=== PATIENT | male | born 1945 | race Caucasian/White ===

== ENCOUNTER → 2016-11-28 | Outpatient (CLI) | payer BC ==
[~2016-11-28] MED LIST: ALBUAER19 INH; ASPI81TA28 PO; AZIT-57 PO; BENZ100C7 PO; CLB/200 PO; CLR10 PO; ESCI1TAB9 PO; FRS/40 PO; IPRA1AER2 INH; LSN/10125 PO; LVQ500 PO; LVQ750 PO; MAGN400T5 PO; MCRK20 PO; METF1000 PO; METO25TA56 PO; MONT1TAB3 PO; MULTTAB58 PO; OMEP20CA9 PO; OXCA150T3 PO; PANT1TAB3 PO; POTA99TA PO; PRED-301 PO; PRED10TA PO; PRED20TA PO; PROB1TAB16 PO; PRVHFAIN INH; RANI300T PO; ROPI0.25 PO; ROPI0.5T15 PO; ROSU20TA PO; SIMV40TA4 PO; SYMIN160 INH; TMF75 PO; UMEC1INH INH; ZNTT/150 PO
[2016-11-28 13:46] LABS: ESTIMATED AVERAGE GLUCOSE 154 mg/dl; HA1C FLAG Normal (Normal)
[2016-11-28 14:35] LABS: ALT/SGPT 51 U/L (12-78); AST/SGOT 26 U/L (15-37); BLOOD UREA NITROGEN 24 mg/dl (7-18); BUN/CREATININE RATIO 18.1 (10-20); CALCIUM 9.6 mg/dl (8.5-10.1); CARBON DIOXIDE 27 mmol/L (21-32); CHLORIDE 103 mmol/L (98-107); GLUCOSE 89 mg/dl (70-99); POTASSIUM 4.3 mmol/L (3.5-5.1); SODIUM 141 mmol/L (136-145)
[2016-11-28 14:38] LABS: ALB/GLOB RATIO 1.1 (0.9-2); ALKALINE PHOSPHATASE 68 U/L (45-117); CHOLESTEROL 138 mg/dl (0-200); CHOLESTEROL/HDL RATIO 3.4; HDL CHOLESTEROL 41 mg/dl; LDL CHOLESTEROL CALCULATED 52 mg/dl; TRIGLYCERIDES 223 mg/dl (0-150); VERY LOW DENSITY LIPOPROT CALC 45 mg/dl
== END | disposition home or self-care (01) ==
LOC: C.LAB 11:59
PROVIDERS: ATTEND Family Medicine
DX: Z11.59 Encounter for screening for other viral diseases (principal); E78.5 Hyperlipidemia, unspecified; I10 Essential (primary) hypertension; E11.9 Type 2 diabetes mellitus without complications

== ENCOUNTER 2016-12-26 12:09 | Inpatient (IN) | payer BC, OTHER ==
[~2016-12-26] VITALS: Ht 170.2 cm; Wt 109.0 kg
[~2016-12-26 12:09] MED LIST changes: -AZIT-57 PO; -BENZ100C7 PO; -CLR10 PO; -LVQ750 PO; -OMEP20CA9 PO; -PANT1TAB3 PO; +PANT1TAB48 PO; -POTA99TA PO; -PRED10TA PO; -PRED20TA PO; -PROB1TAB16 PO; -PRVHFAIN INH; -ROPI0.5T15 PO; -ROSU20TA PO; -UMEC1INH INH; -ZNTT/150 PO
[2016-12-26] MEDS ORDERED: SODIUM CHLORIDE 0.9% 500ML 500 ML IV STA (12:39)
[2016-12-26] MEDS ORDERED: SODIUM CHLORIDE 0.9% 1000ML 1,000 ML IV STA (12:39)
[2016-12-26] MEDS ORDERED: ACETAMINOPHEN 325 MG TAB PO STA (12:45)
--- NOTE | 2016-12-26 12:46 | EMERGENCY ROOM VISIT NOTE ---
History Report prepared by Tk: Kristopher Dubon Under the Supervision of: Dr. Heavenly Arenas M.D. First contact with patient: 12:39 Chief Complaint: RESPIRATORY PROBLEMS Stated Complaint: cough Nursing Triage Summary: pt arrived via BLS; cough and SOB started this AM; spouse at bedside. History of Present Illness The patient is a 71 year old male who presents to the Emergency Room via BLS with complaints of persistent cough that started this morning. He also complains of fever, chest pressure, shortness of breath, and some sore throat. The patient had his flu shot this year and denies close contact illnesses. Source of History: patient Onset: this morning Position: other (global ) Timing: other (persistent) Associated Symptoms: + SOB, + chest pain (chest pressure) Note: Other associated symptoms: sore throat Review of Systems See HPI for pertinent positives & negatives. A total of 10 systems reviewed and were otherwise negative. Past Medical & Surgical Medical Problems: (1) COPD (chronic obstructive pulmonary disease) (2) COPD (chronic obstructive pulmonary disease) (3) DM (diabetes mellitus) (4) Dyslipidemia (5) GERD (gastroesophageal reflux disease) (6) HTN (hypertension) (7) Hypoxia (8) Influenza A (9) OA (osteoarthritis) of knee (10) PNA (pneumonia) (11) Rheumatoid arthritis (12) Sinus tachycardia Surgical Problems: (1) H/O total knee replacement (2) Hx of appendectomy Family History No pertinent family history Social History Smoking Status: Former Smoker Marital Status: Housing Status: lives with family Occupation Status: retired Current/Historical Medications Scheduled Albuterol (Ventolin Hfa), 2 PUFFS INH QID Aspirin (Aspirin Ec), 81 MG PO DAILY Budesonide/Formoterol Fumarate (Symbicort 160/4.5 Inhaler ), 2 PUFFS INH BID Celecoxib (CeleBREX), 200 MG PO BID Escitalopram Oxalate (Lexapro), 10 MG PO DAILY Furosemide (Lasix), 40 MG PO DAILY Hctz/Lisinopril (Lisinopril/Hctz 10/12.5 Mg), 1 TAB PO DAILY Magnesium Oxide (Mag-Ox), 1 TAB PO DAILY Metformin Hcl (Glucophage), 1,000 MG PO BID Metoprolol Tartrate (Lopressor) (Lopressor), 75 MG PO BID Montelukast Sodium (Singulair), 10 MG PO DAILY Multiple Vitamin (Multivitamin), 1 TAB PO DAILY Oxcarbazepine (Trileptal), 150 MG PO DAILY Pantoprazole (Protonix), 40 MG PO DAILY Prednisone (Prednisone), 5 MG PO DAILY Ranitidine Hcl (Zantac), 300 MG PO HS Ropinirole (Requip), 0.25 MG PO HS Simvastatin (Zocor), 40 MG PO QPM Allergies Coded Allergies: Auranofin (Verified Allergy, Severe, SHORTNESS OF BREATH, 12/26/16) Gold-containing Drug Products (Verified Allergy, Unknown, HIVES TO GOLD SHOTS, 12/26/16) Physical Exam Vital Signs Date Time Temp Pulse Resp B/P Pulse Ox O2 Delivery O2 Flow Rate FiO2 12/26/16 15:40 Nasal Cannula 3.0 12/26/16 15:32 120 28 96 Nasal Cannula 3.0 12/26/16 15:28 147/86 12/26/16 15:27 119 32 96 Nasal Cannula 3.0 12/26/16 15:22 122 24 94 Nasal Cannula 3.0 12/26/16 15:17 123 26 95 Nasal Cannula 3.0 12/26/16 15:12 123 30 95 12/26/16 15:07 122 24 95 12/26/16 15:02 121 32 95 12/26/16 14:58 156/83 12/26/16 14:57 125 17 95 12/26/16 14:52 124 32 95 12/26/16 14:47 125 23 95 12/26/16 14:42 129 27 95 12/26/16 14:37 127 18 94 12/26/16 14:32 128 29 95 12/26/16 14:28 126/73 12/26/16 14:27 127 27 95 12/26/16 14:25 39.3 129 23 95 Room Air 12/26/16 14:22 127 29 94 12/26/16 14:17 125 24 93 12/26/16 14:12 125 29 95 12/26/16 14:07 128 29 94 12/26/16 14:02 128 154/81 94 Nasal Cannula 3.0 12/26/16 13:39 136 31 93 12/26/16 13:34 131 20 92 12/26/16 13:29 131 35 93 12/26/16 13:28 206/102 2/1/17 13:24 133 31 92 12/26/16 13:19 134 37 92 12/26/16 13:14 138 29 93 12/26/16 13:09 141 32 93 12/26/16 13:04 140 36 92 12/26/16 12:59 139 30 92 12/26/16 12:58 203/114 12/26/16 12:54 140 19 92 12/26/16 12:49 142 32 93 12/26/16 12:44 140 34 92 12/26/16 12:39 139 29 92 12/26/16 12:34 142 31 93 12/26/16 12:29 141 35 193/116 94 12/26/16 12:24 152 28 93 12/26/16 12:20 94 Room Air 12/26/16 12:20 39.3 142 32 181/120 95 Nasal Cannula 3.0 12/26/16 12:20 93 Room Air 12/26/16 12:19 142 16 181/120 92 12/26/16 12:18 146 12/26/16 12:16 197/110 Physical Exam Vital signs reviewed. General: Well-appearing, obese, appears to be acutely ill, in no significant distress HEENT: No scleral icterus, PERRLA, neck supple. Atraumatic. Cardiovascular: Tachycardic and regular rhythm, no extra sounds. Pulmonary: Dry cough noted. Diminished breath sounds with scattered wheezes. Abdomen: Soft, nontender, nondistended, positive bowel sounds. Musculoskeletal: Atraumatic, no peripheral edema. Neurologic: Patient awake alert and oriented x 3, full strength in all 4 extremities. Cranial nerves 2 through 12 grossly intact. Skin: Warm, dry, no rash Medical Decision & Procedures ER Provider Diagnostic Interpretation: X-ray results as stated below per my interpretation and radiologist interpretation. Other radiology results as stated below per my review and radiologist interpretation: CHEST ONE VIEW PORTABLE CLINICAL HISTORY: fever, SOB dyspnea COMPARISON STUDY: No previous studies for comparison. FINDINGS: Parenchymal density lateral aspect left base progressive from the prior study. Increase in density is noted. Mild list mid to superior mediastinum components which are chronic. No focal infiltrate. IMPRESSION: Increased nodular-type density left base laterally. Subtle increase in fullness the mid to superior mediastinum. CT of the chest is suggested as follow-up. Electronically signed by: Arash Monique M.D. 12/26/2016 1:30 PM Dictated Date/Time: 12/26/2016 1:29 PM CHEST CTA for PULMONARY ARTERIES CT DOSE: 599.98 mGycm HISTORY: Chest pain dyspnea abnormal chest x-ray TECHNIQUE: Multiaxial CT images of the chest were performed following the intravenous administration of contrast to evaluate the pulmonary arteries. Maximal intensity projection images were also obtained. COMPARISON STUDY: CT chest dated 08/07/2016. Chest there is a same date. FINDINGS: Thoracic aorta shows minimal atelectatic change. There is no significant mediastinal or hilar adenopathy. There is considerable mediastinal fat. Pulmonary vascularity enhances appropriately. There is mild respiratory artifact on lung bases obscuring detail of the vertebrobasilar vessels. There is no evidence for focal infiltrate. There are several calcified mediastinal and/or hilar nodes considered benign. Lung bases show minimal basilar atelectatic change. Density at the left base laterally shown increase in density appears to been represent area of focal atelectatic changes of a progressive from the prior study. It is less likely represents true parenchymal nodularity. Six-month follow-up is suggested. An additional parenchymal nodularity considered the existing is unchanged. IMPRESSION: 1. Study is negative for pulmonary embolus. Lungs are considered generally clear. 3. Pulmonary nodularity stable from the prior exam. 4. Subtle increase in density focus of atelectasis left base as compared to the prior study. This appears represent a focal area of mildly progressive atelectatic change rather than true pulmonary nodularity. As confirmation, a six-month CT chest follow-up is suggested. Electronically signed by: Arash Monique M.D. 12/26/2016 2:38 PM Dictated Date/Time: 12/26/2016 2:29 PM Laboratory Results Test 12/26/16 12:45 12/26/16 12:49 12/26/16 12:55 12/26/16 13:09 Total Creatine Kinase 305 U/L (39-308) Creatine Kinase MB 1.6 ng/ml (0.5-3.6) Creatine Kinase MB Ratio 0.5 (0-3.0) Bedside Hemoglobin 13.6 g/dl (14.0-18.0) Bedside Hematocrit 40 % (42-52) Bedside Sodium 137 mEq/L (135-144) Bedside Potassium 4.0 mEq/L (3.3-5.0) Bedside Chloride 98 mEq/L (101-112) Bedside Total CO2 23 mEq/l (24-31) Bedside Blood Urea Nitrogen 18 mg/dl (7-18) Bedside Creatinine 1.0 mg/dl (0.6-1.3) Bedside Glucose (other) 129 mg/dl (70-99) Bedside Ionized Calcium (Luz) 1.16 mmol/l (1.12-1.32) Bedside Lactic Acid Venous 2.65 mmol/L (0.90-1.70) Influenza Type A Antigen POS for Influ A (NEG) Influenza Type B Antigen Neg for Influ B (NEG) Test 12/26/16 13:22 Bedside Troponin I 0.000 ng/ml (0-0.045) Laboratory results per my review. Medications Administered Medications (Trade) Dose Ordered Sig/Yaritza Route Start Time Stop Time Status Last Admin Dose Admin Sodium Chloride 500 ml @ 999 mls/hr Q31M STAT IV 12/26/16 12:39 12/26/16 13:09 DC 12/26/16 13:16 999 MLS/HR Sodium Chloride (Nss 1000ml) 1,000 ml @ 125 mls/hr Q8H STAT IV 12/26/16 12:39 12/26/16 16:22 DC 12/26/16 13:39 125 MLS/HR Acetaminophen (Tylenol Tab) 650 mg NOW STAT PO 12/26/16 12:45 12/26/16 12:46 DC 12/26/16 13:06 650 MG Levofloxacin (Levaquin / D5W) 750 mg NOW STAT IV 12/26/16 13:34 12/26/16 13:35 DC 12/26/16 14:15 750 MG Oseltamivir Phosphate (Tamiflu Cap) 75 mg NOW STAT PO 12/26/16 13:43 12/26/16 13:44 DC 12/26/16 14:14 75 MG Magnesium Sulfate (Magnesium Sulfate) 1 gm Q1H IV 12/26/16 15:00 12/26/16 15:59 DC 12/26/16 14:51 1 GM Ondansetron HCl (Zofran Inj) 4 mg Q6H PRN IV 12/26/16 14:45 01/25/17 14:44 12/26/16 17:09 4 MG Morphine Sulfate (MoRPHine SULFATE INJ) 2 mg Q2H PRN IV 12/26/16 14:45 01/09/17 14:44 12/27/16 09:09 2 MG Metoprolol Tartrate (Lopressor Iv) 5 mg Q4 PRN IV 12/26/16 14:45 01/25/17 14:44 12/26/16 17:08 5 MG ECG Indication: other Rate (beats per minute): 140 Rhythm: sinus tachycardia Findings: nonspecific-ST abn, no ectopy ED Course 1239: Past medical records reviewed. The patient was evaluated in room A2. A complete history and physical examination was performed. 1239: Ordered NSS 1000 ml @ 125 mls/hr IV, NSS 500 ml @ 999 mls/hr IV. 1245: Ordered Tylenol Tab 650 mg PO. 1334: Ordered Levofloxacin 750 mg IV. 1341: Ordered Labetalol HCl 10 mg IV. 1343: Ordered Tamiflu Cap 75 mg Po. 1345: Ordered Ioversol 100 ml IV/Interaction checking. 1405: At this time, I reevaluated the patient and he was resting. 1430: At this time, I discussed the patient's case with Dr. Lewis - Lora COBOS and he agreed to accept the patient for further evaluation. Medical Decision Differential diagnosis: Influenza, other viral illness, pneumonia, urinary tract infection, metabolic abnormality, medication effect, cellulitis, meningitis, intra-abdominal source. This patient was evaluated and appeared to be in some discomfort. IV access was obtained and laboratory work was drawn. Patient is found to be febrile and tachycardic. He was hydrated with normal saline solution, given oral Tylenol. Chest x-ray is read as above. Follow-up chest CT was recommended. Chest CT is negative for PE. Laboratory work reveals a normal white blood cell count. The patient remained somewhat tachycardic. Influenza swab is positive. Pt is labetolol 10 mg IV for HTN and tachycardia. He was given oral tamiflu. Pt will be evaluated by the hospitalist service for worsening of symptoms or any medical concerns. Consults Time Called: 1425 Consulting Physician: Dr. Lewis - Lora COBOS Returned Call: 1430 At this time, I discussed the patient's case with Dr. Lewis and he agreed to accept the patient for further evaluation. Impression Primary Impression: Influenza A Additional Impressions: Tachycardia Hypertension Scribe Attestation The scribe's documentation has been prepared under my direction and personally reviewed by me in its entirety. I confirm that the note above accurately reflects all work, treatment, procedures, and medical decision making performed by me. Departure Information Dispostion Being Evaluated By Hospitalist Referrals Uma Hernández DO (PCP) Problem Qualifiers
[2016-12-26 12:56] LABS: BASO % 0.4 %; BASO ABS # 0.02 K/uL (0-0.2); COMPLETE YES; EOS % 1.3 %; HEMATOCRIT 38.7 % (42-52); IG% 0.2 %; LYMPH ABS # 0.55 K/uL (1.2-3.4); MEAN CELL VOLUME 99.2 fL (80-100); MEAN CORPUSCULAR HEMOGLOBIN 34.1 pg (25-34); MEAN CORPUSCULAR HGB CONC 34.4 g/dl (32-36); MEAN PLATELET VOLUME 9.7 fL (7.4-10.4); MONO % 18.1 %; PLATELET COUNT 140 K/uL (130-400); WHITE BLOOD COUNT 5.48 K/uL (4.8-10.8)
[2016-12-26 13:12] LABS: ISTAT HEMOGLOBIN 13.6 g/dl (14.0-18.0); ISTAT IONIZED CALCIUM 1.16 mmol/l (1.12-1.32)
[2016-12-26 13:13] LABS: BUN/CREATININE RATIO 13.2 (10-20); CALCIUM 9.2 mg/dl (8.5-10.1); CREATININE 1.3 mg/dl (0.60-1.40); MAGNESIUM 1.3 mg/dl (1.8-2.4)
[2016-12-26 13:18] LABS: CKMB/CK RATIO 0.5 (0-3.0)
[2016-12-26] MEDS ORDERED: PRVHFAIN INH (13:27)
--- NOTE | 2016-12-26 13:32 | DIAGNOSTIC IMAGING REPORT ---
CHEST ONE VIEW PORTABLE CLINICAL HISTORY: fever, SOB dyspnea COMPARISON STUDY: No previous studies for comparison. FINDINGS: Parenchymal density lateral aspect left base progressive from the prior study. Increase in density is noted. Mild list mid to superior mediastinum components which are chronic. No focal infiltrate. IMPRESSION: Increased nodular-type density left base laterally. Subtle increase in fullness the mid to superior mediastinum. CT of the chest is suggested as follow-up. Electronically signed by: Arash Monique M.D. 12/26/2016 1:30 PM Dictated Date/Time: 12/26/2016 1:29 PM
[2016-12-26] MEDS ORDERED: LEVAQUIN 750MG / 150ML D5W IV STA (13:34)
[2016-12-26] MEDS ORDERED: LABETALOL HCL IV 5 MG/ML 20ML IV STA (13:41)
[2016-12-26] MEDS ORDERED: OSELTAMIVIR PHOSPHATE 75 MG CAP PO STA (13:43)
[2016-12-26] MEDS ORDERED: OPTIRAY 320 IV PRN (13:45)
--- NOTE | 2016-12-26 14:39 | DIAGNOSTIC IMAGING REPORT ---
CHEST CTA for PULMONARY ARTERIES CT DOSE: 599.98 mGycm HISTORY: Chest pain dyspnea abnormal chest x-ray TECHNIQUE: Multiaxial CT images of the chest were performed following the intravenous administration of contrast to evaluate the pulmonary arteries. Maximal intensity projection images were also obtained. COMPARISON STUDY: CT chest dated 08/07/2016. Chest there is a same date. FINDINGS: Thoracic aorta shows minimal atelectatic change. There is no significant mediastinal or hilar adenopathy. There is considerable mediastinal fat. Pulmonary vascularity enhances appropriately. There is mild respiratory artifact on lung bases obscuring detail of the vertebrobasilar vessels. There is no evidence for focal infiltrate. There are several calcified mediastinal and/or hilar nodes considered benign. Lung bases show minimal basilar atelectatic change. Density at the left base laterally shown increase in density appears to been represent area of focal atelectatic changes of a progressive from the prior study. It is less likely represents true parenchymal nodularity. Six-month follow-up is suggested. An additional parenchymal nodularity considered the existing is unchanged. IMPRESSION: 1. Study is negative for pulmonary embolus. Lungs are considered generally clear. 3. Pulmonary nodularity stable from the prior exam. 4. Subtle increase in density focus of atelectasis left base as compared to the prior study. This appears represent a focal area of mildly progressive atelectatic change rather than true pulmonary nodularity. As confirmation, a six-month CT chest follow-up is suggested. Electronically signed by: Arash Monique M.D. 12/26/2016 2:38 PM Dictated Date/Time: 12/26/2016 2:29 PM
[2016-12-26] MEDS ORDERED: ZOLPIDEM TARTRATE 5 MG TAB PO PRN ×2 (14:45)
[2016-12-26] MEDS ORDERED: LORAZEPAM 2 MG/ML 1 ML VIAL IV PRN ×2 (14:45)
[2016-12-26] MEDS ORDERED: NITROGLYCERIN 0.4 MG SL PER TAB CHARGE SL PRN (14:45)
[2016-12-26] MEDS ORDERED: MoRPHine SULFATE 2 MG/ML CARP IV PRN (14:45)
[2016-12-26] MEDS ORDERED: MAGNESIUM HYDROXIDE SUSP 30 ML UDC PO PRN (14:45)
[2016-12-26] MEDS ORDERED: DiphenhydrAMINE HCL 50 MG/ML VIAL IV PRN (14:45)
[2016-12-26] MEDS ORDERED: METOPROLOL TARTRATE 1 MG/ML VIAL IV PRN (14:45)
[2016-12-26] MEDS ORDERED: BISACODYL 10 MG SUPP PR PRN (14:45)
[2016-12-26] MEDS ORDERED: MoRPHine SULFATE 4 MG/ML 1 ML CARP\\VIAL IV PRN (14:45)
[2016-12-26] MEDS ORDERED: ACETAMINOPHEN IV 100 ML IV PRN (14:45)
[2016-12-26] MEDS ORDERED: ONDANSETRON INJ 2 MG/ML 2 ML VIAL IV PRN (14:45)
[2016-12-26] MEDS ORDERED: PROMETHAZINE HCL INJ 12.5 MG in SODIUM CHLORIDE 0.9% 50ML 50 ML IV PRN (14:45)
[2016-12-26] MEDS ORDERED: ACETAMINOPHEN 325 MG TAB PO PRN ×2 (14:45)
[2016-12-26] MEDS ORDERED: ALUMINUM/MAGNESIUM/SIMETH (MAALOX MAX) 30 ML UDC PO PRN (14:45)
[2016-12-26] MEDS ORDERED: MAGNESIUM SULFATE 1GM / D5W 1 GM BAG IV SCH (15:00)
[2016-12-26 15:40] VITALS: BMI 36.3
[2016-12-26 16:00] VITALS: BP 155/75; PULSE 118; TEMP 36.8; O2SAT 93
--- NOTE | 2016-12-26 16:25 | History and Physical ---
History & Physical Date & Time of Service: Dec 26, 2016 at 16:10 Chief Complaint: cough Primary Care Physician: Uma Hernández DO History of Present Illness Source: patient, family, spouse The patient is a 71-year-old male who presents emergency room via BLS complaints of a persistent cough, fatigue, shortness of breath, sore throat and headache that began acutely this morning. 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 Past Medical/Surgical History Medical Problems: (1) COPD (chronic obstructive pulmonary disease) Status: Chronic (2) DM (diabetes mellitus) Status: Chronic (3) Dyslipidemia Status: Chronic (4) GERD (gastroesophageal reflux disease) Status: Chronic (5) HTN (hypertension) Status: Chronic (6) OA (osteoarthritis) of knee Status: Chronic (7) Rheumatoid arthritis Status: Chronic Surgical Problems: (1) H/O total knee replacement Status: Resolved (2) Hx of appendectomy Status: Resolved Family History No pertinent family history Social History Smoking Status: Former Smoker Smokeless Tobacco Use: No Alcohol Use: none Drug Use: none Marital Status: Housing status: lives with family Occupational Status: retired Immunizations History of Influenza Vaccine: Yes History of Tetanus Vaccine?: Yes History of Pneumococcal: Yes Pneumococcal Date: Nov 08, 2012 History of Hepatitis B Vaccine: Yes Multi-Drug Resistant Organisms History of MDRO: No Allergies Coded Allergies: Auranofin (Verified Allergy, Severe, SHORTNESS OF BREATH, 12/26/16) Gold-containing Drug Products (Verified Allergy, Unknown, HIVES TO GOLD SHOTS, 12/26/16) Home Medications Scheduled Albuterol (Ventolin Hfa), 2 PUFFS INH QID Aspirin (Aspirin Ec), 81 MG PO DAILY Budesonide/Formoterol Fumarate (Symbicort 160/4.5 Inhaler ), 2 PUFFS INH BID Celecoxib (CeleBREX), 200 MG PO BID Escitalopram Oxalate (Lexapro), 10 MG PO DAILY Furosemide (Lasix), 40 MG PO DAILY Hctz/Lisinopril (Lisinopril/Hctz 10/12.5 Mg), 1 TAB PO DAILY Magnesium Oxide (Mag-Ox), 1 TAB PO DAILY Metformin Hcl (Glucophage), 1,000 MG PO BID Metoprolol Tartrate (Lopressor) (Lopressor), 75 MG PO BID Montelukast Sodium (Singulair), 10 MG PO DAILY Multiple Vitamin (Multivitamin), 1 TAB PO DAILY Oxcarbazepine (Trileptal), 150 MG PO DAILY Pantoprazole (Protonix), 40 MG PO DAILY Prednisone (Prednisone), 5 MG PO DAILY Ranitidine Hcl (Zantac), 300 MG PO HS Ropinirole (Requip), 0.25 MG PO HS Simvastatin (Zocor), 40 MG PO QPM Review of Systems The patient denies chest pain, palpitations, lower extremity swelling, vision change, hearing change, weight change, fatigue, nausea, vomiting, abdominal pain , pelvic pain, blood in urine or stool, dysuria, urinary frequency or urgency, memory loss, rash, abnormal bruising or bleeding, imbalance, focal weakness, numbness or tingling in arms or legs, back or neck pain, night sweats, or allergy symptoms. The review of systems is otherwise negative other than for that already noted above, and at least 10 systems have been reviewed. Physical Exam Vital Signs Date Time Temp Pulse Resp B/P Pulse Ox O2 Delivery O2 Flow Rate FiO2 12/26/16 15:46 120 28 147/86 96 12/26/16 15:40 Nasal Cannula 3.0 12/26/16 15:32 120 28 96 Nasal Cannula 3.0 12/26/16 15:28 147/86 12/26/16 15:27 119 32 96 Nasal Cannula 3.0 12/26/16 15:22 122 24 94 Nasal Cannula 3.0 12/26/16 15:17 123 26 95 Nasal Cannula 3.0 12/26/16 15:12 123 30 95 12/26/16 15:07 122 24 95 12/26/16 15:02 121 32 95 12/26/16 14:58 156/83 12/26/16 14:57 125 17 95 12/26/16 14:52 124 32 95 12/26/16 14:47 125 23 95 12/26/16 14:42 129 27 95 12/26/16 14:37 127 18 94 12/26/16 14:32 128 29 95 12/26/16 14:28 126/73 12/26/16 14:27 127 27 95 12/26/16 14:25 39.3 129 23 95 Room Air 12/26/16 14:22 127 29 94 2/1/17 14:17 125 24 93 12/26/16 14:12 125 29 95 12/26/16 14:07 128 29 94 12/26/16 14:02 128 154/81 94 Nasal Cannula 3.0 12/26/16 13:39 136 31 93 12/26/16 13:34 131 20 92 12/26/16 13:29 131 35 93 12/26/16 13:28 206/102 12/26/16 13:24 133 31 92 12/26/16 13:19 134 37 92 12/26/16 13:14 138 29 93 12/26/16 13:09 141 32 93 12/26/16 13:04 140 36 92 12/26/16 12:59 139 30 92 12/26/16 12:58 203/114 12/26/16 12:54 140 19 92 12/26/16 12:49 142 32 93 12/26/16 12:44 140 34 92 12/26/16 12:39 139 29 92 12/26/16 12:34 142 31 93 12/26/16 12:29 141 35 193/116 94 12/26/16 12:24 152 28 93 12/26/16 12:20 94 Room Air 12/26/16 12:20 39.3 142 32 181/120 95 Nasal Cannula 3.0 12/26/16 12:20 93 Room Air 12/26/16 12:19 142 16 181/120 92 12/26/16 12:18 146 12/26/16 12:16 197/110 The patient is awake, well-developed and adequately nourished, alert and oriented 3, normocephalic and atraumatic, lying in bed and in no acute distress. HEENT--PERRL, EOMI, mucous membranes and oropharynx dry. Neck--supple, no JVD or bruits, thyroid normal, trachea midline, no adenopathy. Heart-- tachycardic extra beats, no murmurs, rubs or gallops. Lungs--decreased breath sounds throughout, no respiratory distress, no accessory muscle use. Abdomen--normal bowel sounds and soft, nontender and nondistended, no hernias or masses, no organomegaly, obese. Extremities--no cyanosis, clubbing or edema. There are good distal pulses b/l. Dermatologic--normal skin turgor, looks pale, clammy, no abnormal lymph nodes, no rash. Neurologic--cranial nerves II through XII grossly intact, motor and sensory examination normal. Psychiatric--normal affect. Diagnostics Laboratory Results Results Past 24 Hours Test 12/26/16 12:45 12/26/16 12:49 12/26/16 12:55 12/26/16 13:09 Range/Units White Blood Count 5.48 4.8-10.8 K/uL Red Blood Count 3.90 4.7-6.1 M/uL Hemoglobin 13.3 14.0-18.0 g/dL Hematocrit 38.7 42-52 % Mean Corpuscular Volume 99.2 80-100 fL Mean Corpuscular Hemoglobin 34.1 25-34 pg Mean Corpuscular Hemoglobin Concent 34.4 32-36 g/dl Platelet Count 140 130-400 K/uL Mean Platelet Volume 9.7 7.4-10.4 fL Neutrophils (%) (Auto) 70.0 % Lymphocytes (%) (Auto) 10.0 % Monocytes (%) (Auto) 18.1 % Eosinophils (%) (Auto) 1.3 % Basophils (%) (Auto) 0.4 % Neutrophils # (Auto) 3.84 1.4-6.5 K/uL Lymphocytes # (Auto) 0.55 1.2-3.4 K/uL Monocytes # (Auto) 0.99 0.11-0.59 K/uL Eosinophils # (Auto) 0.07 0-0.5 K/uL Basophils # (Auto) 0.02 0-0.2 K/uL RDW Standard Deviation 51.5 36.4-46.3 fL RDW Coefficient of Variation 14.4 11.5-14.5 % Immature Granulocyte % (Auto) 0.2 % Immature Granulocyte # (Auto) 0.01 0.00-0.02 K/uL Sodium Level 137 136-145 mmol/L Potassium Level 4.0 3.5-5.1 mmol/L Chloride Level 101 98-107 mmol/L Carbon Dioxide Level 22 21-32 mmol/L Anion Gap 14.0 21.0 16-25 mmol/L Blood Urea Nitrogen 17 7-18 mg/dl Creatinine 1.30 0.60-1.40 mg/dl Est Creatinine Clear Calc Drug Dose 60.3 ml/min Estimated GFR () 63.6 Estimated GFR (Non- 54.9 BUN/Creatinine Ratio 13.2 10-20 Random Glucose 119 70-99 mg/dl Calcium Level 9.2 8.5-10.1 mg/dl Magnesium Level 1.3 1.8-2.4 mg/dl Total Bilirubin 0.5 0.2-1 mg/dl Direct Bilirubin 0.1 0-0.2 mg/dl Aspartate Amino Transf (AST/SGOT) 43 15-37 U/L Alanine Aminotransferase (ALT/SGPT) 50 12-78 U/L Alkaline Phosphatase 54 45-117 U/L Total Creatine Kinase 305 39-308 U/L Creatine Kinase MB 1.6 0.5-3.6 ng/ml Creatine Kinase MB Ratio 0.5 0-3.0 Total Protein 8.2 6.4-8.2 gm/dl Albumin 4.1 3.4-5.0 gm/dl Bedside Hemoglobin 13.6 14.0-18.0 g/dl Bedside Hematocrit 40 42-52 % Bedside Sodium 137 135-144 mEq/L Bedside Potassium 4.0 3.3-5.0 mEq/L Bedside Chloride 98 101-112 mEq/L Bedside Total CO2 23 24-31 mEq/l Bedside Blood Urea Nitrogen 18 7-18 mg/dl Bedside Creatinine 1.0 0.6-1.3 mg/dl Bedside Glucose (other) 129 70-99 mg/dl Bedside Ionized Calcium (Luz) 1.16 1.12-1.32 mmol/l Bedside Lactic Acid Venous 2.65 0.90-1.70 mmol/L Influenza Type A Antigen POS for Influ A NEG Influenza Type B Antigen Neg for Influ B NEG Microbiology Results 12/26/16 Blood Culture, Received Pending 12/26/16 Blood Culture, Received Pending Diagnostic Radiology Patient Name: BRIGITTE BOSWELL Unit Number: [id number] Dictated: 12/26/161328 Transcribed: 12/26/161328 MS Printed Date/Time: [~ rep prt dt]/[~ rep prt tm] [~ rep ct labl] - [~ rep ct ivnm] [facility] [place] [address] Dictated: 12/26/161328 Transcribed: 12/26/16 1329 MS Printed Date/Time: [~ rep prt dt]/[~ rep prt tm] [~ rep ct labl] - [~ rep ct ivnm] [~ rep ct add3]] CHEST ONE VIEW PORTABLE CLINICAL HISTORY: fever, SOB dyspnea COMPARISON STUDY: No previous studies for comparison. FINDINGS: Parenchymal density lateral aspect left base progressive from the prior study. Increase in density is noted. Mild list mid to superior mediastinum components which are chronic. No focal infiltrate. IMPRESSION: Increased nodular-type density left base laterally. Subtle increase in fullness the mid to superior mediastinum. CT of the chest is suggested as follow-up. Electronically signed by: Arash Monique M.D. 12/26/2016 1:30 PM Dictated Date/Time: 12/26/2016 1:29 PM The status of this report is Signed. Draft = Not yet reviewed or approved by Radiologist. Signed = Reviewed and approved by Radiologist. <AttendingPhy></AttendingPhy> <FamilyPhy>Uma Hernández DO</FamilyPhy> < PrimaryPhy>Uma Hernández DO</PrimaryPhy> <UnitNumber>[id number]</UnitNumber > <VisitNumber>[id number]</VisitNumber> <PatientName>BRIGITTE BOSWELL</PatientName > <DateOfBirth>1945</DateOfBirth> <Location>[facility]</Location> <ServiceDate> 12/26/16</ServiceDate> <MNE>ESINDI</MNE> <OrderingPhy>Heavenly Arenas M.D. </OrderingPhy> <OrderingPhyMNE>f rep ord dr frye</OrderingPhyMNE> < DictatingPhyMNE>f rep dict dr frye</DictatingPhyMNE> <CCListMNE>f rep ct mne</ CCListMNE> <AdmittingPhyMNE>f pt admit dr frye</AdmittingPhyMNE> <AttendingPhyMNE >f pt attend dr frye</AttendingPhyMNE> <ConsultingPhyMNE>f pt consult dr frye</ConsultingPhyMNE> <FamilyPhyMNE>f pt fam dr mne</FamilyPhyMNE> <OtherPhyMNE>f pt other dr frye</OtherPhyMNE> < PrimaryPhyMNE>f pt prim care dr frye</PrimaryPhyMNE> <ReferringPhyMNE>f pt referring dr frye</ReferringPhyMNE> Patient Name: BRIGITTE BOSWELL Unit Number: [id number] Dictated: 12/26/161428 Transcribed: 12/26/161428 Printed Date/Time: [~ rep prt dt]/[~ rep prt tm] [~ rep ct labl] - [~ rep ct ivnm] [facility] [place] [address] Dictated: 12/26/161428 Transcribed: 12/26/161428 MS Printed Date/Time: [~ rep prt dt]/[~ rep prt tm] [~ rep ct labl] - [~ rep ct ivnm] CHEST CTA for PULMONARY ARTERIES CT DOSE: 599.98 mGycm HISTORY: Chest pain dyspnea abnormal chest x-ray TECHNIQUE: Multiaxial CT images of the chest were performed following the intravenous administration of contrast to evaluate the pulmonary arteries. Maximal intensity projection images were also obtained. COMPARISON STUDY: CT chest dated 08/07/2016. Chest there is a same date. FINDINGS: Thoracic aorta shows minimal atelectatic change. There is no significant mediastinal or hilar adenopathy. There is considerable mediastinal fat. Pulmonary vascularity enhances appropriately. There is mild respiratory artifact on lung bases obscuring detail of the vertebrobasilar vessels. There is no evidence for focal infiltrate. There are several calcified mediastinal and/or hilar nodes considered benign. Lung bases show minimal basilar atelectatic change. Density at the left base laterally shown increase in density appears to been represent area of focal atelectatic changes of a progressive from the prior study. It is less likely represents true parenchymal nodularity. Six-month follow-up is suggested. An additional parenchymal nodularity considered the existing is unchanged. IMPRESSION: 1. Study is negative for pulmonary embolus. Lungs are considered generally clear. 3. Pulmonary nodularity stable from the prior exam. 4. Subtle increase in density focus of atelectasis left base as compared to the prior study. This appears represent a focal area of mildly progressive atelectatic change rather than true pulmonary nodularity. As confirmation, a six-month CT chest follow-up is suggested. Electronically signed by: Arash Monique M.D. 12/26/2016 2:38 PM Dictated Date/Time: 12/26/2016 2:29 PM The status of this report is Signed. Draft = Not yet reviewed or approved by Radiologist. Signed = Reviewed and approved by Radiologist. <AttendingPhy></AttendingPhy> <FamilyPhy>Uma Hernández, DO</FamilyPhy> < PrimaryPhy>Uma Hernández, DO</PrimaryPhy> <UnitNumber>[id number]</UnitNumber > <VisitNumber>[id number]</VisitNumber> <PatientName>BRIGITTE BOSWELL</PatientName > <DateOfBirth>1945</DateOfBirth> <Location[place]</Location> <ServiceDate> 12/26/16</ServiceDate> <MNE>ESINDI</MNE> <OrderingPhy>Heavenly Arenas M.D. </OrderingPhy> <OrderingPhyMNE>f rep ord dr frye</OrderingPhyMNE> < DictatingPhyMNE>f rep dict dr frye</DictatingPhyMNE> <CCListMNE>f rep ct mne</ CCListMNE> <AdmittingPhyMNE>f pt admit dr frye</AdmittingPhyMNE> <AttendingPhyMNE >f pt attend dr frye</AttendingPhyMNE> <ConsultingPhyMNE>f pt consult dr frye</ConsultingPhyMNE> <FamilyPhyMNE>f pt fam dr frye</FamilyPhyMNE> <OtherPhyMNE>f pt other dr frye</OtherPhyMNE> < PrimaryPhyMNE>f pt prim care dr frye</PrimaryPhyMNE> <ReferringPhyMNE>f pt referring dr frye</ReferringPhyMNE> EKG EKG shows sinus tachycardia at 140 bpm, with no acute ST-T changes. Impression Assessment and Plan Influenza A--continue Tamiflu 75 mg by mouth twice a day started the emergency department. Sinus tachycardia--patient will be admitted to the telemetry unit for monitoring. He is already received 2 L of IV fluids emergency department, and will continue rehydration with normal saline with potassium chloride 20 mEq at 25 ML's per hour. We will continue aspirin 81 mg by mouth daily metoprolol tartrate 75 mg by mouth twice a day. Hold furosemide 40 mg by mouth daily, lisinopril/HCTZ 10/12.5 daily. We'll increase mag oxide 400 mg by mouth daily to twice a day, and we'll place on Lopressor 5 mg IV every 4 hours when necessary heart rate greater than 110. We'll also replace magnesium IV. Hypomagnesemia/dehydration--we'll give magnesium 3 g IV, placed on NSS with KCl 20 in the 125 ML's per hour, and increase mag oxide 400 milligrams twice a day. We'll follow serial BMP and magnesium levels. Next Diabetes mellitus--hold metformin 1000 mg by mouth twice a day. Place on Accu- Cheks before meals and at bedtime with NovoLog coverage. Asthma--hold Ventolin HFA, and Symbicort. We'll continue montelukast sodium 10 mg by mouth daily, and have Xopenex with Atrovent nebulizers to use every 2 hours when necessary. GERD--hold pantoprazole 40 mg by mouth daily and event is contributing to low magnesium, and increase ranitidine to 300 mg by mouth twice a day. Restless leg syndrome--continue Requip 0.25 mg by mouth at bedtime. Hypercholesterolemia--continue simvastatin 40 mg by mouth every afternoon. Arthritis--increase prednisone from 5-10 mg by mouth daily, and hold Celebrex 200 mg by mouth twice a day. Depression--continue Lexapro 10 mg by mouth daily and Trileptal 150 mg by mouth daily. Next Abnormal CT Scan of Chest--we'll need a repeat CT in 6 months for stability of lower lobe findings. Level of Care Telemetry Advanced Directives Existing Advance Directive: No Existing Living Will: No Existing Power of Thread Cutter: No Resuscitation Status FULL RESUSCITATION VTE Prophylaxis VTE Risk Assessment Done? Y/N: Yes Risk Level: Moderate Given or contraindicated: SCD's Social Service Consult None Apply
[2016-12-26] MEDS ORDERED: GLUCOSE 40% GEL 15 GM TUBE PO PRN (16:30)
[2016-12-26] MEDS ORDERED: DEXTROSE 50% 50 ML SYR IV PRN (16:30)
[2016-12-26] MEDS ORDERED: GLUCOSE 10 TABS/TUBE PO PRN (16:30)
[2016-12-26] MEDS ORDERED: GLUCAGON FOR INJ 1 MG VIAL SQ PRN (16:30)
[2016-12-26] MEDS: NSS + 20MEQ KCL 1000ML 1,000 ML IV SCH (17:07)
[2016-12-26] MEDS: MAGNESIUM SULFATE 1GM / D5W 1 GM in PREMIXED IN D5W 100 ML IV SCH ×2 (17:08→18:30)
[2016-12-26 20:10] VITALS: BP 129/79; PULSE 101; TEMP 36.9; O2SAT 96
[2016-12-26] MEDS: MAGNESIUM OXIDE 400 MG TAB PO SCH (20:55)
[2016-12-26] MEDS: RANITIDINE HCL 150 MG TAB PO SCH (20:55)
[2016-12-26] MEDS: SIMVASTATIN 40 MG TAB PO SCH (20:55)
[2016-12-26] MEDS: OSELTAMIVIR PHOSPHATE 75 MG CAP PO SCH (20:55)
[2016-12-26] MEDS: ROPINIROLE HCL 0.25 MG TAB PO SCH (20:55)
[2016-12-26] MEDS: METOPROLOL TARTRATE 25 MG TAB PO SCH (20:55)
[2016-12-26] MEDS: DOCUSATE SODIUM 100 MG CAP PO SCH (20:56)
[2016-12-26] MEDS: INSULIN ASPART 100 UNITS/ML 3 ML PEN SC SCH (21:00)
[2016-12-27] VITALS (7 sets, daily range): BP systolic 120–158; BP diastolic 70–88; PULSE 70–81; TEMP 36.4–37.1; O2SAT 90–98; Ht 170.2 cm; Wt 109.0 kg
[2016-12-27] MEDS: NSS + 20MEQ KCL 1000ML 1,000 ML IV SCH ×2 (00:21→09:09)
[2016-12-27] MEDS: INSULIN ASPART 100 UNITS/ML 3 ML PEN SC SCH ×4 (07:00→21:04)
[2016-12-27 07:53] LABS: BASO % 0.7 %; BASO ABS # 0.03 K/uL (0-0.2); COMPLETE YES; EOS % 0.5 %; HEMATOCRIT 35.4 % (42-52); IG% 0.5 %; LYMPH % 20.9 %; MEAN CELL VOLUME 100.6 fL (80-100); MEAN CORPUSCULAR HEMOGLOBIN 33.8 pg (25-34); MEAN CORPUSCULAR HGB CONC 33.6 g/dl (32-36); MEAN PLATELET VOLUME 9.8 fL (7.4-10.4); MONO % 22.3 %; NEUT % 55.1 %; PLATELET COUNT 125 K/uL (130-400); RED BLOOD COUNT 3.52 M/uL (4.7-6.1)
[2016-12-27 08:01] LABS: INR 1.2 (0.9-1.1); PARTIAL THROMBOPLASTIN RATIO 1.2; PROTHROMBIN TIME (PATIENT) 12.7 SECONDS (9.0-12.0)
--- NOTE | 2016-12-27 08:02 | Hospitalist Progress Note ---
Hospitalist Progress Note Date of Service Dec 27, 2016. Subjective Pt evaluation today including: conversation w/ patient, physical exam, chart review, lab review, review of studies, review of inpatient medication list Voiding: no voiding problems, no incontinence Patient states he is not feeling well today. +SOB, is currently on O2 supplement. Patient states he does wear O2 at home, 6L all the time- unsure of how true this is as patient is not requiring 6L here (will reassess this at later time). Patient does appear slightly confused as he talks like he has been here for multiple days. +body aches. +cough. +sore throat. Last bowel movement per patient was on 12/25. Patient denies any fever, chills, sweats, lightheadedness, dizziness, vision changes, CP, palpitations, edema, wheezing, abdominal pain, nausea, vomiting, diarrhea, urinary symptoms, melena, numbness/ tingling, weakness, anxiety/depression, active bleeding, or new skin discoloration/changes. Medications Current Inpatient Medications Medications (Trade) Dose Ordered Sig/Yaritza Route Start Time Stop Time Status Last Admin Dose Admin Ioversol 100 ml 100 ml UD PRN IV 12/26/16 13:45 12/30/16 13:44 Magnesium Sulfate 1 gm/Prmx 100 ml @ 100 mls/hr TODAY@1630,1730 IV 12/26/16 16:30 01/25/17 16:29 12/26/16 18:30 100 MLS/HR Potassium Chloride/Sodium Chloride (Nss + 20meq KCl 1000ml) 1,000 ml @ 125 mls/hr Q8H IV 12/26/16 16:30 01/25/17 16:29 12/27/16 09:09 125 MLS/HR Acetaminophen (Tylenol Tab) 650 mg Q4H PRN PO 12/26/16 14:45 01/25/17 14:44 Zolpidem Tartrate (Ambien Tab) 5 mg HSZ PRN PO 12/26/16 14:45 01/25/17 14:44 Nitroglycerin (Nitrostat Tab) 0.4 mg UD PRN SL 12/26/16 14:45 01/25/17 14:44 Aspirin (Ecotrin Tab) 81 mg DAILY PO 12/27/16 09:00 01/26/17 08:59 Escitalopram Oxalate (Lexapro Tab) 10 mg DAILY PO 12/27/16 09:00 01/26/17 08:59 12/27/16 08:43 10 MG Magnesium Oxide (Mag-Ox Tab) 400 mg BID PO 12/26/16 21:00 01/25/17 20:59 12/27/16 08:44 400 MG Metoprolol Tartrate (Lopressor Tab) 75 mg BID PO 12/26/16 21:00 01/25/17 20:59 12/27/16 08:44 75 MG Montelukast Sodium (Singulair Tab) 10 mg DAILY PO 12/27/16 09:00 01/26/17 08:59 12/27/16 08:43 10 MG Multivitamins (Multivitamin Tab) 1 tab DAILY PO 12/27/16 09:00 01/26/17 08:59 12/27/16 08:43 1 TAB Oxcarbazepine (Trileptal Tab) 150 mg DAILY PO 12/27/16 09:00 01/26/17 08:59 12/27/16 08:42 150 MG Prednisone (PredniSONE TAB) 10 mg DAILY PO 12/27/16 09:00 01/26/17 08:59 12/27/16 08:43 10 MG Ropinirole HCl (Requip Tab) 0.25 mg HS PO 12/26/16 21:00 01/25/17 20:59 12/26/16 20:55 0.25 MG Simvastatin (Zocor Tab) 40 mg QPM PO 12/26/16 21:00 01/25/17 20:59 12/26/16 20:55 40 MG Ranitidine HCl (zANTac TAB) 300 mg BID PO 12/26/16 21:00 01/25/17 20:59 12/27/16 08:44 300 MG Lorazepam (Ativan Inj) 0.5 mg Q4H PRN IV 12/26/16 14:45 01/25/17 14:44 Lorazepam (Ativan Inj) 1 mg Q4H PRN IV 12/26/16 14:45 01/25/17 14:44 Magnesium Hydroxide (Milk Of Magnesia Susp) 30 ml Q6H PRN PO 12/26/16 14:45 01/25/17 14:44 Bisacodyl (Dulcolax Supp) 10 mg DAILY PRN IN 12/26/16 14:45 01/25/17 14:44 Diphenhydramine HCl (Benadryl Inj) 25 mg Q4H PRN IV 12/26/16 14:45 01/25/17 14:44 Al Hydrox/Mg Hydrox/ Simethicone 15 ml 15 ml Q4H PRN PO 12/26/16 14:45 01/25/17 14:44 Promethazine HCl/ Sodium Chloride (Phenergan Inj/ Nss 50ml) 50.5 ml @ 202 mls/hr Q4H PRN IV 12/26/16 14:45 01/25/17 14:44 Ondansetron HCl (Zofran Inj) 4 mg Q6H PRN IV 12/26/16 14:45 01/25/17 14:44 12/26/16 17:09 4 MG Docusate Sodium (coLACE CAP) 100 mg BID PO 12/26/16 21:00 01/25/17 20:59 Morphine Sulfate (MoRPHine SULFATE INJ) 2 mg Q2H PRN IV 12/26/16 14:45 01/09/17 14:44 12/27/16 09:09 2 MG Morphine Sulfate 4 mg 4 mg Q2H PRN IV 12/26/16 14:45 01/09/17 14:44 Acetaminophen (Ofirmev Iv) 100 ml @ 400 mls/hr Q8H PRN IV 12/26/16 14:45 01/25/17 14:44 Oseltamivir Phosphate (Tamiflu Cap) 75 mg BID PO 12/26/16 21:00 12/31/16 20:59 12/27/16 08:45 75 MG Metoprolol Tartrate (Lopressor Iv) 5 mg Q4 PRN IV 12/26/16 14:45 01/25/17 14:44 12/26/16 17:08 5 MG Insulin Aspart (novoLOG ASPART) SLIDING SCALE If C... ACHS SC 12/26/16 21:00 01/25/17 20:59 12/27/16 07:00 6 UNITS Glucose (Glucose 40% Gel) UD PRN PO 12/26/16 16:30 01/25/17 16:29 Glucose (Glucose Chew Tab) 1 tabs UD PRN PO 12/26/16 16:30 01/25/17 16:29 Dextrose (Dextrose 50% 50ML Syringe) 50 ml UD PRN IV 12/26/16 16:30 01/25/17 16:29 Glucagon (Glucagon Inj) 1 mg UD PRN SQ 12/26/16 16:30 01/25/17 16:29 Objective Vital Signs Date Time Temp Pulse Resp B/P Pulse Ox O2 Delivery O2 Flow Rate FiO2 12/27/16 04:22 Nasal Cannula 3.0 12/27/16 03:24 37.1 81 24 135/79 90 Nasal Cannula 2.0 12/27/16 00:42 36.8 81 24 138/77 96 2.0 12/27/16 00:31 Nasal Cannula 3.0 12/26/16 20:18 Nasal Cannula 2.0 12/26/16 20:10 36.9 101 22 129/79 96 Nasal Cannula 2.0 12/26/16 17:08 118 156/82 12/26/16 16:00 36.8 118 28 155/75 93 Nasal Cannula 2.0 12/26/16 15:46 120 28 147/86 96 12/26/16 15:40 Nasal Cannula 3.0 12/26/16 15:32 120 28 96 Nasal Cannula 3.0 12/26/16 15:28 147/86 12/26/16 15:27 119 32 96 Nasal Cannula 3.0 12/26/16 15:22 122 24 94 Nasal Cannula 3.0 12/26/16 15:17 123 26 95 Nasal Cannula 3.0 12/26/16 15:12 123 30 95 12/26/16 15:07 122 24 95 12/26/16 15:02 121 32 95 12/26/16 14:58 156/83 12/26/16 14:57 125 17 95 12/26/16 14:52 124 32 95 12/26/16 14:47 125 23 95 12/26/16 14:42 129 27 95 12/26/16 14:37 127 18 94 12/26/16 14:32 128 29 95 12/26/16 14:28 126/73 12/26/16 14:27 127 27 95 12/26/16 14:25 39.3 129 23 95 Room Air 12/26/16 14:22 127 29 94 12/26/16 14:17 125 24 93 12/26/16 14:12 125 29 95 12/26/16 14:07 128 29 94 12/26/16 14:02 128 154/81 94 Nasal Cannula 3.0 12/26/16 13:39 136 31 93 12/26/16 13:34 131 20 92 12/26/16 13:29 131 35 93 12/26/16 13:28 206/102 12/26/16 13:24 133 31 92 12/26/16 13:19 134 37 92 12/26/16 13:14 138 29 93 12/26/16 13:09 141 32 93 12/26/16 13:04 140 36 92 12/26/16 12:59 139 30 92 12/26/16 12:58 203/114 12/26/16 12:54 140 19 92 12/26/16 12:49 142 32 93 12/26/16 12:44 140 34 92 12/26/16 12:39 139 29 92 12/26/16 12:34 142 31 93 12/26/16 12:29 141 35 193/116 94 12/26/16 12:24 152 28 93 12/26/16 12:20 94 Room Air 12/26/16 12:20 39.3 142 32 181/120 95 Nasal Cannula 3.0 12/26/16 12:20 93 Room Air 12/26/16 12:19 142 16 181/120 92 12/26/16 12:18 146 12/26/16 12:16 197/110 Physical Exam General Appearance: no apparent distress, + obese Eyes: normal inspection, PERRL ENT: hearing grossly normal Neck: supple Respiratory/Chest: no respiratory distress, no accessory muscle use, + decreased breath sounds, + wheezing (diffuse expiratory wheeze) Cardiovascular: regular rate, rhythm Abdomen: normal bowel sounds, soft, + distended Extremities: no pedal edema, no calf tenderness Neurologic/Psychiatric: alert, normal mood/affect, + pertinent finding ( Oriented to person/place ) Skin: normal color, warm/dry, no rash Laboratory Results Last 24 Hours Test 12/26/16 12:45 12/26/16 12:49 12/26/16 12:55 12/26/16 13:09 White Blood Count 5.48 K/uL Red Blood Count 3.90 M/uL Hemoglobin 13.3 g/dL Hematocrit 38.7 % Mean Corpuscular Volume 99.2 fL Mean Corpuscular Hemoglobin 34.1 pg Mean Corpuscular Hemoglobin Concent 34.4 g/dl Platelet Count 140 K/uL Mean Platelet Volume 9.7 fL Neutrophils (%) (Auto) 70.0 % Lymphocytes (%) (Auto) 10.0 % Monocytes (%) (Auto) 18.1 % Eosinophils (%) (Auto) 1.3 % Basophils (%) (Auto) 0.4 % Neutrophils # (Auto) 3.84 K/uL Lymphocytes # (Auto) 0.55 K/uL Monocytes # (Auto) 0.99 K/uL Eosinophils # (Auto) 0.07 K/uL Basophils # (Auto) 0.02 K/uL RDW Standard Deviation 51.5 fL RDW Coefficient of Variation 14.4 % Immature Granulocyte % (Auto) 0.2 % Immature Granulocyte # (Auto) 0.01 K/uL Sodium Level 137 mmol/L Potassium Level 4.0 mmol/L Chloride Level 101 mmol/L Carbon Dioxide Level 22 mmol/L Anion Gap 14.0 mmol/L 21.0 mmol/L Blood Urea Nitrogen 17 mg/dl Creatinine 1.30 mg/dl Est Creatinine Clear Calc Drug Dose 60.3 ml/min Estimated GFR () 63.6 Estimated GFR (Non- 54.9 BUN/Creatinine Ratio 13.2 Random Glucose 119 mg/dl Calcium Level 9.2 mg/dl Magnesium Level 1.3 mg/dl Total Bilirubin 0.5 mg/dl Direct Bilirubin 0.1 mg/dl Aspartate Amino Transf (AST/SGOT) 43 U/L Alanine Aminotransferase (ALT/SGPT) 50 U/L Alkaline Phosphatase 54 U/L Total Creatine Kinase 305 U/L Creatine Kinase MB 1.6 ng/ml Creatine Kinase MB Ratio 0.5 Total Protein 8.2 gm/dl Albumin 4.1 gm/dl Bedside Hemoglobin 13.6 g/dl Bedside Hematocrit 40 % Bedside Sodium 137 mEq/L Bedside Potassium 4.0 mEq/L Bedside Chloride 98 mEq/L Bedside Total CO2 23 mEq/l Bedside Blood Urea Nitrogen 18 mg/dl Bedside Creatinine 1.0 mg/dl Bedside Glucose (other) 129 mg/dl Bedside Ionized Calcium (Luz) 1.16 mmol/l Bedside Lactic Acid Venous 2.65 mmol/L Influenza Type A Antigen POS for Influ A Influenza Type B Antigen Neg for Influ B Test 12/26/16 17:21 2/1/17 18:20 12/26/16 21:09 12/27/16 04:44 Bedside Glucose 130 mg/dl 120 mg/dl Lactic Acid Level 1.7 mmol/L Test 12/27/16 07:17 Bedside Glucose 108 mg/dl Assessment and Plan 71-year-old male who presents emergency room via BLS complaints of a persistent cough, fatigue, shortness of breath, sore throat and headache that began acutely on 12/26. His family reports that he was outside [employer] snow for an extended interval time on 12/25. Sinus tachycardia, resolved: - Admit to the telemetry for cardiac monitoring, groundwater monitoring technician reviewed- sinus rhythm throughout the night, around 2100 on 12/26 patient's tachycardia started to improve. - Hydration with IV NSS + potassium chloride 20 mEq @ 25 ml/hr - Continue ASA 81 mg PO daily Bilateral lower extremity edema: - Hold Furosemide 40 mg PO daily -HTN: - Hold Lisinopril/HCTZ 10/12.5 daily - Continue Metoprolol Tartrate 75 mg PO BI - Lopressor 5 mg IV q4 hrs PRN Influenza A +: - Tamiflu 75 mg PO BID x10 doses (started on 12/26) Pancytopenia, ?secondary to influenza: - Monitor, follow CBC Elevated liver enzymes/INR, ?secondary to influenza: - Follow liver profile/INR Hypomagnesemia/dehydration: - Mag level 1.3 on admission. Magnesium 3 g IV and increase Mag Oxide 400 milligrams BID - Hydrate with IV NSS with KCl 20 in the 125 ML's per hour - Follow serial BMP and magnesium levels Diabetes mellitus: - Hold Metformin 1000 mg PO BID - BSG ACHS with sliding insulin scale Asthma: - Hold Ventolin HFA and Symbicort - Continue Montelukast sodium 10 mg PO daily - DuoNebs scheduled and PRN GERD: - Hold Pantoprazole 40 mg PO daily due to low magnesium - Increase Ranitidine to 300 mg PO BID Restless leg syndrome: - Continue Requip 0.25 mg PO HS Hypercholesterolemia: - Continue Simvastatin 40 mg PO daily Arthritis: - Increase Prednisone from 5 to 10 mg PO daily - Hold Celebrex 200 mg PO BID Depression: - Continue Lexapro 10 mg PO daily and Trileptal 150 [address] PO daily [address] CT Scan of Chest: - CXR- Increased nodular-type density left base laterally. Subtle increase in fullness the mid to superior mediastinum. - Chest CT- Study is negative for pulmonary embolus. Lungs are considered generally clear. Pulmonary nodularity stable from the prior exam. Subtle increase in density focus of atelectasis left base as compared to the prior study. This appears represent a focal area of mildly progressive atelectatic change rather than true pulmonary nodularity. - Will need a repeat CT in 6 months for stability of lower lobe findings. GI Prophylaxis: - Maalox PRN - IV Zofran PRN - Colace and/or Milk of Mag PRN DVT prophylaxis: - Hold chemical therapy due to pancytopenia - TONY and SCDs Code Status: - LEVEL I, FULL Dispo: - Discharge to home once medically stable.
[2016-12-27 08:22] LABS: BUN/CREATININE RATIO 11.9 (10-20); CALCIUM 7.9 mg/dl (8.5-10.1); CREATININE 1.1 mg/dl (0.60-1.40); MAGNESIUM 1.9 mg/dl (1.8-2.4); POTASSIUM 4.3 mmol/L (3.5-5.1)
[2016-12-27] MEDS: OXCARBAZEPINE 150 MG TAB PO SCH (08:42)
[2016-12-27] MEDS: MULTIVITAMIN TAB PO SCH (08:43)
[2016-12-27] MEDS: ESCITALOPRAM OXALATE 10 MG TAB PO SCH (08:43)
[2016-12-27] MEDS: MONTELUKAST SOD 10 MG TAB PO SCH (08:43)
[2016-12-27] MEDS: RANITIDINE HCL 150 MG TAB PO SCH ×2 (08:44→21:01)
[2016-12-27] MEDS: MAGNESIUM OXIDE 400 MG TAB PO SCH ×2 (08:44→21:01)
[2016-12-27] MEDS: METOPROLOL TARTRATE 25 MG TAB PO SCH ×2 (08:44→21:01)
[2016-12-27] MEDS: OSELTAMIVIR PHOSPHATE 75 MG CAP PO SCH ×2 (08:45→21:01)
[2016-12-27] MEDS: ASPIRIN 81 MG ECTAB PO SCH (09:00)
[2016-12-27] MEDS: DOCUSATE SODIUM 100 MG CAP PO SCH ×2 (09:00→21:01)
--- NOTE | 2016-12-27 10:01 | Clinical Documentation Query ---
LUISA Nj : CLINICAL DOCUMENTATION QUERY Patient is a 71 year old male admitted with influenza A. EMR review demonstrates that patient was admitted hypertensive, tachycardic (146), febrile (39.3), tachypneic (to mid 30's) with lactic acidemia (2.65) noted on serum chemistries. He is being treated with IVF and Tamiflu and being monitored with telemetry, serial labs, symptom management. In your clinical opinion is this patient being managed for: ( x) possible Sepsis due to influenza A, POA ( ) Other explanation of clinical findings (Please Explain) ( ) Unable to determine (Please Define) ( ) Need to Discuss ( ) Not Agree The medical record reflects the following clinical findings, treatment, and risk factors. Clinical Indicators: Fever, tachycardia, lactic acidemia in the setting of infectious disease Treatment:He is being treated with IVF and Tamiflu and being monitored with telemetry, serial labs, symptom management Risk Factors: Influenza A infection. Please clarify and document your clinical opinion in the progress notes and discharge summary. Terms such as "probable", "suspected", "likely", "questionable", "possible", or "still to be ruled out" are acceptable. IF IN AGREEMENT, YOU MUST DOCUMENT ABOVE DIAGNOSTIC STATEMENT IN DAILY PROGRESS NOTES AND DISCHARGE SUMMARY. This document is not part of the patient's record. Thank You, Cristopher Gloria RN [phone]
--- NOTE | 2016-12-27 10:02 | Clinical Documentation Query ---
LUKAS MELENDEZ : CLINICAL DOCUMENTATION QUERY Patient is a 71 year old male admitted with influenza A. EMR review demonstrates that patient was admitted hypertensive, tachycardic (146), febrile (39.3), tachypneic (to mid 30's) with lactic acidemia (2.65) noted on serum chemistries. He is being treated with IVF and Tamiflu and being monitored with telemetry, serial labs, symptom management. In your clinical opinion is this patient being managed for: ( X ) Sepsis due to influenza A, POA ( ) Other explanation of clinical findings (Please Explain) ( ) Unable to determine (Please Define) ( ) Need to Discuss ( ) Not Agree The medical record reflects the following clinical findings, treatment, and risk factors. Clinical Indicators: Fever, tachycardia, lactic acidemia in the setting of infectious disease Treatment:He is being treated with IVF and Tamiflu and being monitored with telemetry, serial labs, symptom management Risk Factors: Influenza A infection. Please clarify and document your clinical opinion in the progress notes and discharge summary. Terms such as "probable", "suspected", "likely", "questionable", "possible", or "still to be ruled out" are acceptable. IF IN AGREEMENT, YOU MUST DOCUMENT ABOVE DIAGNOSTIC STATEMENT IN DAILY PROGRESS NOTES AND DISCHARGE SUMMARY. This document is not part of the patient's record. Thank You, Cristopher Gloria RN [phone]
[2016-12-27] MEDS ORDERED: ALBUT/IPRATROP 3MG/0.5MG NEB 3 ML VIAL INH SCH (12:00)
[2016-12-27] MEDS ORDERED: ALBUT/IPRATROP 3MG/0.5MG NEB 3 ML VIAL INH PRN (12:45)
[2016-12-27] MEDS ORDERED: AZITHROMYCIN 250 MG TAB PO ONE (13:30)
[2016-12-27] MEDS: GUAIFENESIN/CODEINE 200MG/20MG 10ML UDC PO PRN (13:35)
[2016-12-27] MEDS: ALBUT/IPRATROP 3MG/0.5MG NEB 3 ML VIAL INH SCH ×2 (16:00→19:33)
[2016-12-27] MEDS: METHYLPREDNISOLONE IV 80 MG in SYRINGE 0 ML IV SCH ×2 (16:08→21:02)
[2016-12-27] MEDS: MAGNESIUM SULFATE 1GM / D5W 1 GM in PREMIXED IN D5W 100 ML IV SCH ×2 (16:10→17:30)
[2016-12-27] MEDS: ROPINIROLE HCL 0.25 MG TAB PO SCH (21:01)
[2016-12-27] MEDS: SIMVASTATIN 40 MG TAB PO SCH (21:02)
[2016-12-28] VITALS (13 sets, daily range): BP systolic 125–151; BP diastolic 74–82; PULSE 57–95; TEMP 36.3–36.9; O2SAT 92–97
[2016-12-28] MEDS: METHYLPREDNISOLONE IV 80 MG in SYRINGE 0 ML IV SCH ×2 (05:34→17:56)
[2016-12-28 06:25] LABS: COMPLETE YES; HEMATOCRIT 37.8 % (42-52); LYMPH % 14.8 %; LYMPH ABS # 0.71 K/uL (1.2-3.4); MEAN CORPUSCULAR HEMOGLOBIN 33.1 pg (25-34); MEAN CORPUSCULAR HGB CONC 33.1 g/dl (32-36); MEAN PLATELET VOLUME 10.2 fL (7.4-10.4); MONO % 4.2 %; PLATELET COUNT 159 K/uL (130-400); RED BLOOD COUNT 3.78 M/uL (4.7-6.1)
[2016-12-28 06:30] LABS: INR 1.1 (0.9-1.1); PARTIAL THROMBOPLASTIN RATIO 1.1; PROTHROMBIN TIME (PATIENT) 11.8 SECONDS (9.0-12.0)
[2016-12-28 06:59] LABS: ALT/SGPT 42 U/L (12-78); AST/SGOT 34 U/L (15-37); BUN/CREATININE RATIO 18.7 (10-20); CALCIUM 8.2 mg/dl (8.5-10.1); CARBON DIOXIDE 24 mmol/L (21-32); CHLORIDE 104 mmol/L (98-107); GLUCOSE 165 mg/dl (70-99); MAGNESIUM 2.3 mg/dl (1.8-2.4); POTASSIUM 4.8 mmol/L (3.5-5.1); SODIUM 139 mmol/L (136-145)
[2016-12-28] MEDS: INSULIN ASPART 100 UNITS/ML 3 ML PEN SC SCH ×4 (07:00→21:34)
[2016-12-28 07:11] LABS: ALKALINE PHOSPHATASE 43 U/L (45-117); THYROID STIMULATING HORMONE 0.319 uIu/ml (0.300-4.500)
[2016-12-28] MEDS: ALBUT/IPRATROP 3MG/0.5MG NEB 3 ML VIAL INH SCH ×4 (07:28→19:39)
--- NOTE | 2016-12-28 07:39 | Hospitalist Progress Note ---
Hospitalist Progress Note Date of Service Dec 28, 2016. Subjective Pt evaluation today including: conversation w/ patient, physical exam, chart review, lab review, review of inpatient medication list Voiding: no voiding problems, no incontinence Patient states he is feeling better, but stills feels lousy. +cough, sore throat , body aches. Had a BM. Patient is eating and drinking OK. Patient denies any fever, chills, sweats, lightheadedness, dizziness, vision changes, CP, palpitations, edema, SOB, wheezing, abdominal pain, nausea, vomiting, diarrhea, urinary symptoms, melena, numbness/tingling, weakness, anxiety/depression, active bleeding, or new skin discoloration/changes. Medications Current Inpatient Medications Medications (Trade) Dose Ordered Sig/Yaritza Route Start Time Stop Time Status Last Admin Dose Admin Ioversol 100 ml 100 ml UD PRN IV 12/26/16 13:45 12/30/16 13:44 Magnesium Sulfate/ Prmx (Magnesium Sulfate/Premixed D5W) 100 ml @ 100 mls/hr TODAY@1630,1730 IV 12/26/16 16:30 01/25/17 16:29 12/27/16 17:30 100 MLS/HR Acetaminophen (Tylenol Tab) 650 mg Q4H PRN PO 12/26/16 14:45 01/25/17 14:44 Zolpidem Tartrate (Ambien Tab) 5 mg HSZ PRN PO 12/26/16 14:45 01/25/17 14:44 Nitroglycerin (Nitrostat Tab) 0.4 mg UD PRN SL 12/26/16 14:45 01/25/17 14:44 Aspirin (Ecotrin Tab) 81 mg DAILY PO 12/27/16 09:00 01/26/17 08:59 12/28/16 07:48 81 MG Escitalopram Oxalate (Lexapro Tab) 10 mg DAILY PO 12/27/16 09:00 01/26/17 08:59 12/28/16 07:47 10 MG Magnesium Oxide (Mag-Ox Tab) 400 mg BID PO 12/26/16 21:00 01/25/17 20:59 12/28/16 07:47 400 MG Metoprolol Tartrate (Lopressor Tab) 75 mg BID PO 12/26/16 21:00 01/25/17 20:59 12/28/16 07:46 75 MG Montelukast Sodium (Singulair Tab) 10 mg DAILY PO 12/27/16 09:00 01/26/17 08:59 12/28/16 07:46 10 MG Multivitamins (Multivitamin Tab) 1 tab DAILY PO 12/27/16 09:00 01/26/17 08:59 12/28/16 07:47 1 TAB Oxcarbazepine (Trileptal Tab) 150 mg DAILY PO 12/27/16 09:00 01/26/17 08:59 12/28/16 07:47 150 MG Ropinirole HCl (Requip Tab) 0.25 mg HS PO 12/26/16 21:00 01/25/17 20:59 12/27/16 21:01 0.25 MG Simvastatin (Zocor Tab) 40 mg QPM PO 12/26/16 21:00 01/25/17 20:59 12/27/16 21:02 40 MG Ranitidine HCl (zANTac TAB) 300 mg BID PO 12/26/16 21:00 01/25/17 20:59 12/28/16 07:47 300 MG Lorazepam (Ativan Inj) 0.5 mg Q4H PRN IV 12/26/16 14:45 01/25/17 14:44 Lorazepam (Ativan Inj) 1 mg Q4H PRN IV 12/26/16 14:45 01/25/17 14:44 Magnesium Hydroxide (Milk Of Magnesia Susp) 30 ml Q6H PRN PO 12/26/16 14:45 01/25/17 14:44 Bisacodyl (Dulcolax Supp) 10 mg DAILY PRN MO 12/26/16 14:45 01/25/17 14:44 Diphenhydramine HCl (Benadryl Inj) 25 mg Q4H PRN IV 12/26/16 14:45 01/25/17 14:44 Al Hydrox/Mg Hydrox/ Simethicone 15 ml 15 ml Q4H PRN PO 12/26/16 14:45 01/25/17 14:44 Promethazine HCl/ Sodium Chloride (Phenergan Inj/ Nss 50ml) 50.5 ml @ 202 mls/hr Q4H PRN IV 12/26/16 14:45 01/25/17 14:44 Ondansetron HCl (Zofran Inj) 4 mg Q6H PRN IV 12/26/16 14:45 01/25/17 14:44 12/26/16 17:09 4 MG Docusate Sodium (coLACE CAP) 100 mg BID PO 12/26/16 21:00 01/25/17 20:59 12/28/16 07:48 100 MG Morphine Sulfate (MoRPHine SULFATE INJ) 2 mg Q2H PRN IV 12/26/16 14:45 01/09/17 14:44 12/27/16 09:09 2 MG Morphine Sulfate 4 mg 4 mg Q2H PRN IV 12/26/16 14:45 01/09/17 14:44 Acetaminophen (Ofirmev Iv) 100 ml @ 400 mls/hr Q8H PRN IV 12/26/16 14:45 01/25/17 14:44 Oseltamivir Phosphate (Tamiflu Cap) 75 mg BID PO 12/26/16 21:00 12/31/16 20:59 12/28/16 07:47 75 MG Metoprolol Tartrate (Lopressor Iv) 5 mg Q4 PRN IV 12/26/16 14:45 01/25/17 14:44 12/26/16 17:08 5 MG Insulin Aspart (novoLOG ASPART) SLIDING SCALE If C... ACHS SC 12/26/16 21:00 01/25/17 20:59 12/28/16 07:00 7 UNITS Glucose (Glucose 40% Gel) UD PRN PO 12/26/16 16:30 01/25/17 16:29 Glucose (Glucose Chew Tab) 1 tabs UD PRN PO 12/26/16 16:30 01/25/17 16:29 Dextrose (Dextrose 50% 50ML Syringe) 50 ml UD PRN IV 12/26/16 16:30 01/25/17 16:29 Glucagon (Glucagon Inj) 1 mg UD PRN SQ 12/26/16 16:30 01/25/17 16:29 Albuterol/ Ipratropium (Duoneb) 3 ml QIDR INH 12/27/16 16:00 01/26/17 15:59 12/28/16 07:28 3 ML Codeine Phosphate/ Guaifenesin (Robitussin-AC Sugar Free Syrup) 10 ml Q6H PRN PO 12/27/16 12:45 01/26/17 12:44 12/28/16 07:46 10 ML Albuterol/ Ipratropium (Duoneb) 3 ml Q2H PRN INH 12/27/16 12:45 01/26/17 12:44 Azithromycin 250 mg 250 mg DAILY@1200 PO 12/28/16 12:00 01/04/17 11:59 Methylprednisolone Sodium Succinate/ Syringe (Solu-Medrol IV/ Syringe) 1.28 ml @ 1.5 mls/min Q8 IV 12/27/16 14:00 01/26/17 13:59 12/28/16 05:34 1.5 MLS/MIN Objective Vital Signs Date Time Temp Pulse Resp B/P Pulse Ox O2 Delivery O2 Flow Rate FiO2 12/28/16 04:45 36.9 64 134/75 96 Nasal Cannula 2.0 12/28/16 04:25 Nasal Cannula 3.0 12/28/16 00:26 36.3 67 20 125/82 96 Nasal Cannula 2.0 12/28/16 00:24 Nasal Cannula 3.0 12/27/16 20:50 Nasal Cannula 3.0 12/27/16 20:04 36.4 79 20 133/81 96 Nasal Cannula 2.0 12/27/16 19:33 72 18 96 Nasal Cannula 2.0 12/27/16 16:00 Nasal Cannula 3.0 12/27/16 15:49 36.7 70 20 120/70 98 Nasal Cannula 2.0 12/27/16 12:00 Nasal Cannula 3.0 12/27/16 11:34 36.6 77 20 152/88 98 2.0 12/27/16 08:09 36.8 79 18 158/85 95 2.0 12/27/16 08:00 Nasal Cannula 3.0 Physical Exam General Appearance: no apparent distress, + obese, + pertinent finding (o2 supplement on ) Eyes: normal inspection, PERRL ENT: hearing grossly normal Neck: supple Respiratory/Chest: lungs clear, no respiratory distress, no accessory muscle use Cardiovascular: regular rate, rhythm, no murmur Abdomen: normal bowel sounds, non tender, soft Extremities: no pedal edema, no calf tenderness Neurologic/Psychiatric: alert, normal mood/affect, oriented x 3 Skin: normal color, warm/dry, no rash Laboratory Results Last 24 Hours Test 12/27/16 07:40 12/27/16 11:16 12/27/16 16:24 12/27/16 20:27 White Blood Count 4.30 K/uL Red Blood Count 3.52 M/uL Hemoglobin 11.9 g/dL Hematocrit 35.4 % Mean Corpuscular Volume 100.6 fL Mean Corpuscular Hemoglobin 33.8 pg Mean Corpuscular Hemoglobin Concent 33.6 g/dl Platelet Count 125 K/uL Mean Platelet Volume 9.8 fL Neutrophils (%) (Auto) 55.1 % Lymphocytes (%) (Auto) 20.9 % Monocytes (%) (Auto) 22.3 % Eosinophils (%) (Auto) 0.5 % Basophils (%) (Auto) 0.7 % Neutrophils # (Auto) 2.37 K/uL Lymphocytes # (Auto) 0.90 K/uL Monocytes # (Auto) 0.96 K/uL Eosinophils # (Auto) 0.02 K/uL Basophils # (Auto) 0.03 K/uL RDW Standard Deviation 52.6 fL RDW Coefficient of Variation 14.5 % Immature Granulocyte % (Auto) 0.5 % Immature Granulocyte # (Auto) 0.02 K/uL Prothrombin Time 12.7 SECONDS Prothromb Time International Ratio 1.2 Activated Partial Thromboplast Time 31.8 SECONDS Partial Thromboplastin Ratio 1.2 Sodium Level 135 mmol/L Potassium Level 4.3 mmol/L Chloride Level 101 mmol/L Carbon Dioxide Level 25 mmol/L Anion Gap 9.0 mmol/L Blood Urea Nitrogen 13 mg/dl Creatinine 1.10 mg/dl Est Creatinine Clear Calc Drug Dose 72.2 ml/min Estimated GFR () 77.9 Estimated GFR (Non- 67.2 BUN/Creatinine Ratio 11.9 Random Glucose 98 mg/dl Calcium Level 7.9 mg/dl Magnesium Level 1.9 mg/dl Total Bilirubin 0.5 mg/dl Direct Bilirubin 0.1 mg/dl Aspartate Amino Transf (AST/SGOT) 42 U/L Alanine Aminotransferase (ALT/SGPT) 44 U/L Alkaline Phosphatase 41 U/L Total Protein 6.9 gm/dl Albumin 3.3 gm/dl Bedside Glucose 118 mg/dl 130 mg/dl 230 mg/dl Test 12/28/16 05:50 White Blood Count 4.80 K/uL Red Blood Count 3.78 M/uL Hemoglobin 12.5 g/dL Hematocrit 37.8 % Mean Corpuscular Volume 100.0 fL Mean Corpuscular Hemoglobin 33.1 pg Mean Corpuscular Hemoglobin Concent 33.1 g/dl Platelet Count 159 K/uL Mean Platelet Volume 10.2 fL Neutrophils (%) (Auto) 81.0 % Lymphocytes (%) (Auto) 14.8 % Monocytes (%) (Auto) 4.2 % Eosinophils (%) (Auto) 0.0 % Basophils (%) (Auto) 0.0 % Neutrophils # (Auto) 3.89 K/uL Lymphocytes # (Auto) 0.71 K/uL Monocytes # (Auto) 0.20 K/uL Eosinophils # (Auto) 0.00 K/uL Basophils # (Auto) 0.00 K/uL RDW Standard Deviation 51.4 fL RDW Coefficient of Variation 14.1 % Immature Granulocyte % (Auto) 0.0 % Immature Granulocyte # (Auto) 0.00 K/uL Prothrombin Time 11.8 SECONDS Prothromb Time International Ratio 1.1 Activated Partial Thromboplast Time 28.6 SECONDS Partial Thromboplastin Ratio 1.1 Sodium Level 139 mmol/L Potassium Level 4.8 mmol/L Chloride Level 104 mmol/L Carbon Dioxide Level 24 mmol/L Anion Gap 11.0 mmol/L Creatinine 1.10 mg/dl Est Creatinine Clear Calc Drug Dose 72.2 ml/min Estimated GFR () 77.9 Estimated GFR (Non- 67.2 BUN/Creatinine Ratio 18.7 Random Glucose 165 mg/dl Calcium Level 8.2 mg/dl Magnesium Level 2.3 mg/dl Total Bilirubin 0.3 mg/dl Direct Bilirubin < 0.1 mg/dl Aspartate Amino Transf (AST/SGOT) 34 U/L Alanine Aminotransferase (ALT/SGPT) 42 U/L Alkaline Phosphatase 43 U/L Total Protein 7.2 gm/dl Albumin 3.4 gm/dl Thyroid Stimulating Hormone (TSH) 0.319 uIu/ml Assessment and Plan 71-year-old male who presents emergency room via BLS complaints of a persistent cough, fatigue, shortness of breath, sore throat and headache that began acutely on 12/26. His family reports that he was outside [place] snow for an extended interval time on 1/31. Sinus tachycardia, resolved: - Admit to the telemetry for cardiac monitoring, teletypesetter monitor reviewed- sinus rhythm, around 2100 on 12/26 patient's tachycardia started to improve. - Hydration with IV NSS + potassium chloride 20 mEq @ 25 ml/hr x3 bags - Continue ASA 81 mg PO daily - TSH checked, 0.319 - Pending b12/folate - Pending blood cultures Bilateral lower extremity edema: - Hold Furosemide 40 mg PO daily -HTN: - Hold Lisinopril/HCTZ 10/12.5 daily- resume at discharge - Continue Metoprolol Tartrate 75 mg PO BI - Lopressor 5 mg IV q4 hrs PRN Influenza A +: - Tamiflu 75 mg PO BID x10 doses (started on 12/26) Pancytopenia, ?secondary to influenza, resolving: - Monitor, follow CBC Elevated liver enzymes/INR, ?secondary to influenza, resolved: - Follow liver profile/INR Hypomagnesemia/dehydration, resolved: - Mag level 1.3 on admission. Magnesium 3 g IV and increase Mag Oxide 400 milligrams BID - Hydrate with IV NSS with KCl 20 in the 125 ML's per hour - Follow serial BMP and magnesium levels Diabetes mellitus: - Hold Metformin 1000 mg PO BID - BSG ACHS with sliding insulin scale Asthma/COPD, possible acute exacerbation: - Hold Ventolin HFA and Symbicort - Continue Montelukast sodium 10 mg PO daily - DuoNebs scheduled and PRN - Azithromycin 500 mg x1 dose, then 250 mg PO daily (started on 12/27) GERD: - Hold Pantoprazole 40 mg PO daily due to low magnesium - Increase Ranitidine to 300 mg PO BID Restless leg syndrome: - Continue Requip 0.25 mg PO HS Hypercholesterolemia: - Continue Simvastatin 40 mg PO daily Arthritis: - Increase Prednisone from 5 to 10 mg PO daily -- d/c'd on 12/27. Started IV Solu-Medrol 80 mg q8hrs. Will jeremy back to Prednisone. - Hold Celebrex 200 mg PO BID Depression: - Continue Lexapro 10 mg PO daily and Trileptal 150 mg PO daily Abnormal CT Scan of Chest: - CXR- Increased nodular-type density left base laterally. Subtle increase in fullness the mid to superior mediastinum. - Chest CT- Study is negative for pulmonary embolus. Lungs are considered generally clear. Pulmonary nodularity stable from the prior exam. Subtle increase in density focus of atelectasis left base as compared to the prior study. This appears represent a focal area of mildly progressive atelectatic change rather than true pulmonary nodularity. - Will need a repeat CT in 6 months for stability of lower lobe findings. GI Prophylaxis: - Maalox PRN - IV Zofran PRN - Colace and/or Milk of Mag PRN DVT prophylaxis: - Hold chemical therapy due to pancytopenia - TONY and SCDs Code Status: - LEVEL I, FULL Dispo: - Discharge to ?home once medically stable. Need PT/OT evaluations.
[2016-12-28] MEDS: METOPROLOL TARTRATE 25 MG TAB PO SCH ×2 (07:46→21:29)
[2016-12-28] MEDS: MONTELUKAST SOD 10 MG TAB PO SCH (07:46)
[2016-12-28] MEDS: GUAIFENESIN/CODEINE 200MG/20MG 10ML UDC PO PRN ×2 (07:46→21:29)
[2016-12-28] MEDS: ESCITALOPRAM OXALATE 10 MG TAB PO SCH (07:47)
[2016-12-28] MEDS: RANITIDINE HCL 150 MG TAB PO SCH ×2 (07:47→21:30)
[2016-12-28] MEDS: MAGNESIUM OXIDE 400 MG TAB PO SCH ×2 (07:47→21:31)
[2016-12-28] MEDS: OXCARBAZEPINE 150 MG TAB PO SCH (07:47)
[2016-12-28] MEDS: MULTIVITAMIN TAB PO SCH (07:47)
[2016-12-28] MEDS: OSELTAMIVIR PHOSPHATE 75 MG CAP PO SCH ×2 (07:47→21:32)
[2016-12-28] MEDS: ASPIRIN 81 MG ECTAB PO SCH (07:48)
[2016-12-28] MEDS: DOCUSATE SODIUM 100 MG CAP PO SCH ×2 (07:48→21:30)
[2016-12-28 07:51] LABS: BLOOD UREA NITROGEN 21 mg/dl (7-18)
[2016-12-28] MEDS: AZITHROMYCIN 250 MG TAB PO SCH (12:25)
[2016-12-28] MEDS: MAGNESIUM SULFATE 1GM / D5W 1 GM in PREMIXED IN D5W 100 ML IV SCH (16:30)
[2016-12-28] MEDS ORDERED: NURSING VERBAL MED ORDER ONE (17:45)
[2016-12-28] MEDS: SIMVASTATIN 40 MG TAB PO SCH (21:30)
[2016-12-28] MEDS: ROPINIROLE HCL 0.25 MG TAB PO SCH (21:31)
[2016-12-29] VITALS (8 sets, daily range): BP systolic 115–157; BP diastolic 70–86; PULSE 62–72; TEMP 36.3–36.6; O2SAT 92–97
[2016-12-29] MEDS: METHYLPREDNISOLONE IV 80 MG in SYRINGE 0 ML IV SCH (05:48)
[2016-12-29] MEDS: ALBUT/IPRATROP 3MG/0.5MG NEB 3 ML VIAL INH SCH ×4 (07:01→19:08)
[2016-12-29 07:28] LABS: COMPLETE YES; HEMATOCRIT 36.2 % (42-52); IG% 0.2 %; LYMPH % 12.2 %; LYMPH ABS # 1.36 K/uL (1.2-3.4); MEAN CELL VOLUME 99.7 fL (80-100); MEAN CORPUSCULAR HEMOGLOBIN 34.2 pg (25-34); MEAN CORPUSCULAR HGB CONC 34.3 g/dl (32-36); MEAN PLATELET VOLUME 10.1 fL (7.4-10.4); MONO % 6.9 %; NEUT % 80.7 %; PLATELET COUNT 167 K/uL (130-400); RED BLOOD COUNT 3.63 M/uL (4.7-6.1); WHITE BLOOD COUNT 11.13 K/uL (4.8-10.8)
[2016-12-29 07:38] LABS: PARTIAL THROMBOPLASTIN RATIO 0.8
[2016-12-29 08:06] LABS: ALKALINE PHOSPHATASE 42 U/L (45-117); ALT/SGPT 38 U/L (12-78); AST/SGOT 31 U/L (15-37); BLOOD UREA NITROGEN 30 mg/dl (7-18); BUN/CREATININE RATIO 23.2 (10-20); CALCIUM 8.4 mg/dl (8.5-10.1); CARBON DIOXIDE 24 mmol/L (21-32); CHLORIDE 104 mmol/L (98-107); GLUCOSE 122 mg/dl (70-99); MAGNESIUM 2.3 mg/dl (1.8-2.4); POTASSIUM 4.2 mmol/L (3.5-5.1); SODIUM 139 mmol/L (136-145)
[2016-12-29] MEDS: ESCITALOPRAM OXALATE 10 MG TAB PO SCH (08:51)
[2016-12-29] MEDS: DOCUSATE SODIUM 100 MG CAP PO SCH ×2 (08:51→20:54)
[2016-12-29] MEDS: OSELTAMIVIR PHOSPHATE 75 MG CAP PO SCH ×2 (08:51→20:56)
[2016-12-29] MEDS: MULTIVITAMIN TAB PO SCH (08:51)
[2016-12-29] MEDS: ASPIRIN 81 MG ECTAB PO SCH (08:51)
[2016-12-29] MEDS: OXCARBAZEPINE 150 MG TAB PO SCH (08:51)
[2016-12-29] MEDS: MONTELUKAST SOD 10 MG TAB PO SCH (08:51)
[2016-12-29] MEDS: METOPROLOL TARTRATE 25 MG TAB PO SCH ×2 (08:52→20:55)
[2016-12-29] MEDS: RANITIDINE HCL 150 MG TAB PO SCH ×2 (08:52→20:55)
[2016-12-29] MEDS: MAGNESIUM OXIDE 400 MG TAB PO SCH ×2 (08:52→20:57)
[2016-12-29] MEDS: INSULIN ASPART 100 UNITS/ML 3 ML PEN SC SCH ×4 (09:01→20:54)
--- NOTE | 2016-12-29 10:50 | Progress Note ---
Subjective Date of Service: Dec 29, 2016. Subjective Pt evaluation today including: conversation w/ patient, physical exam, chart review, lab review, review of studies, conversation w/ production consultant, review of inpatient medication list Still feels generalized weakness, cough, report has new blisters and possible cold sore in lips, from last night, he has history of cold sore before Problem List Medical Problems: (1) Bronchitis Status: Acute (2) COPD (chronic obstructive pulmonary disease) Status: Chronic (3) DM (diabetes mellitus) Status: Chronic (4) Dyslipidemia Status: Chronic (5) GERD (gastroesophageal reflux disease) Status: Chronic (6) HTN (hypertension) Status: Chronic (7) Hypertension Status: Acute (8) Influenza B Status: Acute (9) OA (osteoarthritis) of knee Status: Chronic (10) Pedal edema Status: Acute (11) Pneumonia Status: Acute (12) Rheumatoid arthritis Status: Chronic (13) Sepsis Status: Acute (14) Sepsis Status: Acute (15) Tachycardia Status: Acute Review of Systems Constitutional: + fatigue, + weakness, No chills, No fever, No problem reported , No sweats, No weight loss Eyes: No diplopia, No discharge, No eye pain, No redness, No worsening of vision ENT: + see HPI, No dental problems, No hearing loss, No nasal symptoms, No sore throat, No tinnitus, No trouble swallowing, No unusual epistaxis Respiratory: + cough, No dyspnea at rest, No dyspnea on exertion, No hemoptysis , No shortness of breath, No sputum, No wheezing Cardiac: No PND, No chest pain, No claudication, No edema, No orthopnea, No palpitations Abdomen: No constipation, No diarrhea, No nausea, No pain, No vomiting Musculoskeletal: No calf pain, No joint pain, No muscle pain, No swelling Male : No dysuria, No hematuria, No incontinence, No nocturia more than once/ night, No slowing stream, No urinary frequency Neurologic: No balance problems, No memory loss, No numbness/tingling, No paralysis, No vertigo, No weakness Psychiatric: No anhedonism, No anxiety, No depression symptoms, No insomnia, No substance abuse Heme: No abnormal bleeding/bruising, No clotting problems, No night sweats, No swollen lymph nodes Endo: No excessive thirst, No excessive urination, No fatigue Skin: No bleeding, No color change, No itch, No new/changing skin lesions, No rash Objective Vital Signs Date Time Temp Pulse Resp B/P Pulse Ox O2 Delivery O2 Flow Rate FiO2 12/29/16 07:35 36.4 62 20 138/79 92 Nasal Cannula 2.0 12/29/16 07:02 62 18 94 Room Air 12/29/16 00:24 36.3 64 18 157/85 95 Room Air 12/29/16 00:00 93 Room Air 12/28/16 21:37 90 139/77 12/28/16 19:39 78 18 93 Room Air 12/28/16 19:37 36.7 95 19 148/81 93 Room Air 12/28/16 16:36 36.6 67 20 144/80 96 Nasal Cannula 3.0 12/28/16 16:02 Room Air 12/28/16 16:02 69 18 95 Nasal Cannula 2.0 12/28/16 13:49 36.5 65 20 92 2.0 12/28/16 12:02 Room Air 12/28/16 11:53 36.5 65 20 143/74 92 Nasal Cannula 3.0 12/28/16 11:35 57 18 97 Nasal Cannula 2.0 Physical Exam General Appearance: WD/WN, no apparent distress, + obese Eyes: normal inspection, PERRL, EOMI, sclerae normal ENT: normal ENT inspection, hearing grossly normal, pharynx normal, + pertinent finding (upper and lower lips has blisters different stage, no open no drainage) Neck: supple, no adenopathy, thyroid normal, no JVD, no carotid bruits, trachea midline Respiratory/Chest: chest non-tender, normal breath sounds, no respiratory distress, no accessory muscle use, + decreased breath sounds, + wheezing (left lower lung Minimal wheezing which is much better and then yesterday) Cardiovascular: regular rate, rhythm, no edema, no gallop, no JVD, no murmur Abdomen: normal bowel sounds, non tender, soft, no organomegaly, no pulsatile mass Extremities: normal range of motion, non-tender, normal inspection, no pedal edema, no calf tenderness, normal capillary refill, pelvis stable Neurologic/Psychiatric: winder helper II-XII nml as tested, no motor/sensory deficits, alert, normal mood/affect, oriented x 3 Skin: normal color, warm/dry, no rash Lymphatic: no adenopathy Laboratory Results Last 24 Hours Test 12/28/16 11:16 12/28/16 16:17 12/28/16 20:42 12/29/16 06:45 Bedside Glucose 208 mg/dl 144 mg/dl 203 mg/dl White Blood Count 11.13 K/uL Red Blood Count 3.63 M/uL Hemoglobin 12.4 g/dL Hematocrit 36.2 % Mean Corpuscular Volume 99.7 fL Mean Corpuscular Hemoglobin 34.2 pg Mean Corpuscular Hemoglobin Concent 34.3 g/dl Platelet Count 167 K/uL Mean Platelet Volume 10.1 fL Neutrophils (%) (Auto) 80.7 % Lymphocytes (%) (Auto) 12.2 % Monocytes (%) (Auto) 6.9 % Eosinophils (%) (Auto) 0.0 % Basophils (%) (Auto) 0.0 % Neutrophils # (Auto) 8.98 K/uL Lymphocytes # (Auto) 1.36 K/uL Monocytes # (Auto) 0.77 K/uL Eosinophils # (Auto) 0.00 K/uL Basophils # (Auto) 0.00 K/uL RDW Standard Deviation 51.1 fL RDW Coefficient of Variation 14.2 % Immature Granulocyte % (Auto) 0.2 % Immature Granulocyte # (Auto) 0.02 K/uL Prothrombin Time 11.0 SECONDS Prothromb Time International Ratio 1.0 Activated Partial Thromboplast Time 20.4 SECONDS Partial Thromboplastin Ratio 0.8 Sodium Level 139 mmol/L Potassium Level 4.2 mmol/L Chloride Level 104 mmol/L Carbon Dioxide Level 24 mmol/L Anion Gap 11.0 mmol/L Blood Urea Nitrogen 30 mg/dl Creatinine 1.30 mg/dl Est Creatinine Clear Calc Drug Dose 61.1 ml/min Estimated GFR () 63.6 Estimated GFR (Non- 54.9 BUN/Creatinine Ratio 23.2 Random Glucose 122 mg/dl Calcium Level 8.4 mg/dl Magnesium Level 2.3 mg/dl Total Bilirubin 0.3 mg/dl Direct Bilirubin < 0.1 mg/dl Aspartate Amino Transf (AST/SGOT) 31 U/L Alanine Aminotransferase (ALT/SGPT) 38 U/L Alkaline Phosphatase 42 U/L Total Protein 7.4 gm/dl Albumin 3.6 gm/dl Test 2/4/17 08:08 Bedside Glucose 130 mg/dl Assessment and Plan 71-year-old male who presents emergency room via BLS complaints of a persistent cough, fatigue, shortness of breath, sore throat and headache that began acutely on 12/26. 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
[2016-12-29] MEDS: AZITHROMYCIN 250 MG TAB PO SCH (12:34)
[2016-12-29] MEDS: SIMVASTATIN 40 MG TAB PO SCH (20:56)
[2016-12-29] MEDS: ROPINIROLE HCL 0.25 MG TAB PO SCH (20:56)
[2016-12-30] VITALS: O2SAT 97
[2016-12-30 00:10] VITALS: BP 142/80; PULSE 59; TEMP 36.5; O2SAT 93
[2016-12-30] MEDS: ALBUT/IPRATROP 3MG/0.5MG NEB 3 ML VIAL INH SCH (06:57)
[2016-12-30 06:58] VITALS: PULSE 67; O2SAT 94
[2016-12-30 07:04] VITALS: BP 129/79; PULSE 62; TEMP 36.5; O2SAT 95
[2016-12-30] MEDS ORDERED: TMF75 PO (08:26)
[2016-12-30] MEDS ORDERED: PRED20TA PO (08:26)
[2016-12-30] MEDS ORDERED: ZTHM250 PO (08:26)
[2016-12-30] MEDS: MULTIVITAMIN TAB PO SCH (09:01)
[2016-12-30] MEDS: DOCUSATE SODIUM 100 MG CAP PO SCH (09:01)
[2016-12-30] MEDS: ASPIRIN 81 MG ECTAB PO SCH (09:02)
[2016-12-30] MEDS: ESCITALOPRAM OXALATE 10 MG TAB PO SCH (09:02)
[2016-12-30] MEDS: MONTELUKAST SOD 10 MG TAB PO SCH (09:02)
[2016-12-30] MEDS: MAGNESIUM OXIDE 400 MG TAB PO SCH (09:02)
[2016-12-30] MEDS: OSELTAMIVIR PHOSPHATE 75 MG CAP PO SCH (09:03)
[2016-12-30] MEDS: RANITIDINE HCL 150 MG TAB PO SCH (09:05)
[2016-12-30] MEDS: OXCARBAZEPINE 150 MG TAB PO SCH (09:05)
[2016-12-30] MEDS: METOPROLOL TARTRATE 25 MG TAB PO SCH (09:07)
[2016-12-30] MEDS: INSULIN ASPART 100 UNITS/ML 3 ML PEN SC SCH ×2 (09:12→12:32)
--- NOTE | 2016-12-30 09:16 | Discharge Instructions ---
Discharge Instructions Admission Reason for Admission: Influenza A Sinus Tachycardia Discharge Discharge Diagnosis / Problem: Influenza A + Discharge Goals Goal(s): Decrease discomfort, Improve function, Increase independence, Improve disease control, Improve nutritional status, Learn about illness, Diagnostic testing, Therapeutic intervention, Prevent Disease Progression, Specific goals Activity Recommendations Activity Limitations: resume your previous activity Lifting Limitations: none Exercise/Sports Limitations: none May Resume Sexual Activity: when tolerated Shower/Bathe: no limitations Driving or Machine Use: no limitations . Instructions / Follow-Up Instructions / Follow-Up you have copd exac with hx of Asthma, which is better I am giving tapering dose of Prednisone, you can resume your home dose of prednisone after the tapering dose you have influenza , you need to until new Tamiflu medication one day more You need to continue azithromycin one day more You can buy [id number] cough syrup for your cough You are having herpes labialis, you need to pay attention personal hygiene - you need to follow up with your primary care physician in 1 week, - take medication as instructed, never overdose or any misuse, or take with alcohol, because misuse of medicine may cause organ damage or , call your primary care physician if have questions of medicaitons. - call your primary care physician OR go to local emergency room if has any fever/chill, chest pain, shortness of breathing, nausea/vomiting/abdominal pain , facial droop/slurry speech/local weakness, or if has any questions. - fall precaution - diet as instructed - you should understand that it is important to follow up the above instruction , and "not following the above instruction" may cause delayed or missed care of your medical conditions which may cause permanent organ damage and even . Current Hospital Diet Patient's current hospital diet: AHA Diet (Heart Healthy), Diabetes Type 2 Diet Discharge Diet Recommended Diet: AHA Diet (Heart Healthy) Pending Studies Studies pending at discharge: no Laboratory Results Hemoglobin A1c Test 11/28/16 12:05 Range/Units Estimated Average Glucose 154 mg/dl Hemoglobin A1c 7.0 H 4.5-5.6 % Lipid Panel Test 11/28/16 12:05 Range/Units Triglycerides Level 223 H 0-150 mg/dl Cholesterol Level 138 0-200 mg/dl HDL Cholesterol 41 mg/dl Cholesterol/HDL Ratio 3.4 LDL Cholesterol, Calculated 52 mg/dl Medical Emergencies . Who to Call and When: Medical Emergencies: If at any time you feel your situation is an emergency, please call 911 immediately. . Non-Emergent Contact Non-Emergency issues call your: Primary Care Provider . . "Provider Documentation" section prepared by Peewee Crystal. VTE Core Measure Inpt VTE Proph given/why not?: SCD's
--- NOTE | 2016-12-30 09:30 | Discharge Summary ---
Discharge Summary Admission Date: Dec 26, 2016 at 15:43 Discharge Date: Dec 30, 2016 Principal Diagnosis: influenza A Problems/Secondary Diagnoses: (1) COPD (chronic obstructive pulmonary disease) Status: Chronic (2) DM (diabetes mellitus) Status: Chronic (3) Dyslipidemia Status: Chronic (4) GERD (gastroesophageal reflux disease) Status: Chronic (5) HTN (hypertension) Status: Chronic (6) OA (osteoarthritis) of knee Status: Chronic (7) Rheumatoid arthritis Status: Chronic Immunizations: Have You Had Influenza Vaccine: Yes History of Tetanus Vaccine?: Yes History of Pneumococcal: Yes Pneumococcal Date: Nov 08, 2012 History of Hepatitis B Vaccine: Yes Procedures: no Consultations: no Medication Reconciliation New Medications: Prednisone (Prednisone) 20 Mg Tab 0 PO DAILY, #7 2 TABS DAILY FOR 2 DAYS, THEN 1 TAB DAILY FOR 2 DAYS, THEN 1/2 TAB DAILY FOR 2 DAYS. Azithromycin (Azithromycin) 250 Mg Tab 250 MG PO DAILY@1200 for 2 Days, TAB Oseltamivir Phosphate (Tamiflu) 75 Mg Cap 75 MG PO BID for 2 Days, #4 CAP Continued Medications: Albuterol (Ventolin Hfa) 60 Puffs/5400 Mcg Aers 2 PUFFS INH QID Aspirin (Aspirin Ec) 81 Mg Tab 81 MG PO DAILY Budesonide/Formoterol Fumarate (Symbicort 160/4.5 Inhaler ) Aero 2 PUFFS INH BID, INHALER Celecoxib (CeleBREX) 200 Mg Cap 200 MG PO BID, CAP Escitalopram Oxalate (Lexapro) 10 Mg Tab 10 MG PO DAILY, TAB Furosemide (Lasix) 40 Mg Tab 40 MG PO DAILY, TAB Hctz/Lisinopril (Lisinopril/Hctz 10/12.5 Mg) 1 Ea Tab 1 TAB PO DAILY, TAB Magnesium Oxide (Mag-Ox) 400 Mg Tab 1 TAB PO DAILY, TAB Metformin Hcl (Glucophage) 1,000 Mg Tab 1000 MG PO BID, TAB Metoprolol Tartrate (Lopressor) (Lopressor) 25 Mg Tab 75 MG PO BID, TAB Montelukast Sodium (Singulair) 10 Mg Tab 10 MG PO DAILY, TAB Multiple Vitamin (Multivitamin) 1 Tab Tab 1 TAB PO DAILY, TAB Oxcarbazepine (Trileptal) 150 Mg Tab 150 MG PO DAILY, TAB Pantoprazole (Protonix) 40 Mg Tab 40 MG PO DAILY, TAB Prednisone (Prednisone) 5 Mg Tab 5 MG PO DAILY, TAB Ranitidine Hcl (Zantac) 300 Mg Tab 300 MG PO HS, TAB Ropinirole (Requip) 0.25 Mg Tab 0.25 MG PO HS, TAB Simvastatin (Zocor) 40 Mg Tab 40 MG PO QPM, TAB Discharge Exam Out of bed and walk, mild dry cough , no other complaint Review of Systems: Constitutional: No chills, No fatigue, No fever, No problem reported, No sweats, No weakness, No weight loss Eyes: No diplopia, No discharge, No eye pain, No problem reported, No redness, No worsening of vision ENT: No dental problems, No hearing loss, No nasal symptoms, No problem reported, No sore throat, No tinnitus, No trouble swallowing, No unusual epistaxis Respiratory: + cough (occasional dry cough), No dyspnea at rest, No dyspnea on exertion, No hemoptysis, No problem reported, No shortness of breath, No sputum, No wheezing Cardiovascular: No PND, No chest pain, No claudication, No edema, No orthopnea, No palpitations, No problem reported Abdomen: No GI bleeding, No constipation, No diarrhea, No nausea, No pain, No problem reported, No vomiting Genitourinary - Male: No dysuria, No hematuria, No impotence, No lesions, No penile discharge, No problem reported, No urinary frequency, No urinary hesitancy, No urinary incontinence, No urinary retention, No urinary urgency Neurologic: No balance problems, No memory loss, No numbness/tingling, No paralysis, No problem reported, No vertigo, No weakness Psychiatric: No anhedonism, No anxiety, No depression symptoms, No insomnia , No problem reported, No substance abuse Endocrine: No excessive thirst, No excessive urination, No fatigue, No problem reported Hematologic / Lymphatic: No abnormal bleeding/bruising, No clotting problems , No night sweats, No problem reported, No swollen lymph nodes Physical Exam: General Appearance: WD/WN, no apparent distress, + obese Eyes: normal inspection, PERRL, EOMI ENT: normal ENT inspection, hearing grossly normal Neck: supple, no adenopathy, thyroid normal Respiratory/Chest: chest non-tender, + decreased breath sounds Cardiovascular: regular rate, rhythm, no edema, no gallop Abdomen / GI: normal bowel sounds, non tender, soft Extremities: normal inspection, no calf tenderness, normal capillary refill , no pedal edema Neurologic/Psychiatric: refractory repairer II-XII nml as tested, no motor/sensory deficits , alert, normal mood/affect, normal reflexes Skin: normal color, warm/dry Hospital Course 71-year-old male who presents emergency room via BLS complaints of a persistent cough, fatigue, shortness of breath, sore throat and headache that began acutely on 12/26. His family reports that he was outside [employer] [place] for an extended interval time on 12/25/2016 Sinus tachycardia upon admission, resolved: possible copd exac with hx of Asthma, tob abuse disorder: Continue to improved and stable Was treated duo neb, and tapering dose of Solu-Medrol, Continue home tapering dose of prednisone Can resume home dose of prednisone after complete tapering Continue inhaler he was taking at home Possible has bronchitis was treated by give azithromycin, need to have 1 days more after discharge Was treated by giving oxygen, which was taper off, two-step exercise showed do not need oxygen to home Influenza A +: stable, cont current care, had 4 days of Tamiflu, need to continue one day more possible Sepsis due to influenza A, POA: Blood culture so far negative no gross for 48 hours Bilateral lower extremity edema: stable New development of herpes labialis, 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, will oral valacyclovir, 2000mg po q 12 x 1 day (only 2 dose needed) -HTN: stable Thrombocytopenia likely secondary to influenza: Resolved Diabetes mellitus: f/u, GERD: Restless leg syndrome: Hypercholesterolemia: Arthritis: Depression: All of the above condition stable Patient is discharged to home today in good condition Instructions / Follow-Up you have copd exac with hx of Asthma, which is better I am giving tapering dose of Prednisone, you can resume your home dose of prednisone after the tapering dose you have influenza , you need to until new Tamiflu medication one day more You need to continue azithromycin one day more You can buy [id number] cough syrup for your cough You are having herpes labialis, you need to pay attention personal hygiene - you need to follow up with your primary care physician in 1 week, - take medication as instructed, never overdose or any misuse, or take with alcohol, because misuse of medicine may cause organ damage or , call your primary care physician if have questions of medicaitons. - call your primary care physician OR go to local emergency room if has any fever/chill, chest pain, shortness of breathing, nausea/vomiting/abdominal pain , facial droop/slurry speech/local weakness, or if has any questions. - fall precaution - diet as instructed - you should understand that it is important to follow up the above instruction , and "not following the above instruction" may cause delayed or missed care of your medical conditions which may cause permanent organ damage and even . Total Time Spent: Greater than 30 minutes This includes examination of the patient, discharge planning, medication reconciliation, and communication with other providers. Discharge Instructions Please refer to the electronic Patient Visit Report (Discharge Instructions) for additional information. Additional Copies To Uma Hernández DO
[2016-12-30 09:43] VITALS: BP 129/79; PULSE 62; TEMP 36.5; O2SAT 95
[2016-12-30] MEDS: AZITHROMYCIN 250 MG TAB PO SCH (12:25)
== END 2016-12-30 13:05 | disposition home or self-care (01) | DRG 872 ==
LOC: ENRESERVTM → ENRESERVDT → EDBD 12:09 → C.EDA 12:10 → C.2T 15:43 → UNDOADMIN 15:43 → C.MS2W 12-28 18:49 → C.2T 12-28 18:49
PROVIDERS: ADMIT Hospitalist; ATTEND Hospitalist
DX: A41.9 Sepsis, unspecified organism (principal); D61.818 Other pancytopenia; J44.1 Chronic obstructive pulmonary disease with (acute) exacerbation; J98.11 Atelectasis; J11.1 Influenza due to unidentified influenza virus with other respiratory manifestations; E11.9 Type 2 diabetes mellitus without complications; E66.9 Obesity, unspecified; E78.00 Pure hypercholesterolemia, unspecified; E83.42 Hypomagnesemia; E86.0 Dehydration; F32.9 Major depressive disorder, single episode, unspecified; G25.81 Restless legs syndrome; I10 Essential (primary) hypertension; K21.9 Gastro-esophageal reflux disease without esophagitis; M06.9 Rheumatoid arthritis, unspecified; M17.9 Osteoarthritis of knee, unspecified; R51 Headache; R60.0 Localized edema; Z87.891 Personal history of nicotine dependence; E78.5 Hyperlipidemia, unspecified

== ENCOUNTER → 2017-05-06 | Outpatient (CLI) | payer BC ==
[~2017-05-06] MED LIST changes: -ALBUAER19 INH; +AZIT-57 PO; +BENZ100C7 PO; +CLR10 PO; -IPRA1AER2 INH; -LVQ500 PO; +LVQ750 PO; -MCRK20 PO; +OMEP20CA9 PO; +POTA99TA PO; +PRED10TA PO; +PRED20TA PO; +PROB1TAB16 PO; +PRVHFAIN INH; +ROPI0.5T15 PO; +ROSU20TA PO; +UMEC1INH INH; +ZNTT/150 PO
[2017-05-06 13:44] LABS: BASO % 0.3 %; BASO ABS # 0.02 K/uL (0-0.2); COMPLETE YES; EOS % 4.3 %; HEMATOCRIT 40.6 % (42-52); IG% 0.3 %; LYMPH % 38.8 %; LYMPH ABS # 2.78 K/uL (1.2-3.4); MEAN CELL VOLUME 100.7 fL (80-100); MEAN CORPUSCULAR HEMOGLOBIN 33.3 pg (25-34); MEAN PLATELET VOLUME 9.7 fL (7.4-10.4); MONO % 10.9 %; NEUT % 45.4 %; PLATELET COUNT 194 K/uL (130-400); RED BLOOD COUNT 4.03 M/uL (4.7-6.1); WHITE BLOOD COUNT 7.16 K/uL (4.8-10.8)
[2017-05-06 13:59] LABS: ESTIMATED AVERAGE GLUCOSE 154 mg/dl; HA1C FLAG Normal (Normal)
[2017-05-06 14:05] LABS: ALT/SGPT 49 U/L (12-78); AST/SGOT 28 U/L (15-37); BLOOD UREA NITROGEN 27 mg/dl (7-18); CARBON DIOXIDE 27 mmol/L (21-32); CHLORIDE 101 mmol/L (98-107); CHOLESTEROL 195 mg/dl (0-200); GLUCOSE 103 mg/dl (70-99); POTASSIUM 4.2 mmol/L (3.5-5.1); SODIUM 139 mmol/L (136-145); TRIGLYCERIDES 529 mg/dl (0-150)
[2017-05-06 14:06] LABS: CALCIUM 9.6 mg/dl (8.5-10.1)
[2017-05-06 14:08] LABS: ALKALINE PHOSPHATASE 59 U/L (45-117); CHOLESTEROL/HDL RATIO 6.5; HDL CHOLESTEROL 30 mg/dl
[2017-05-06 14:20] LABS: RATIO 4.1 mcg/mg (0-30.0)
== END | disposition home or self-care (01) ==
LOC: C.LAB1850 11:50
PROVIDERS: ATTEND Nurse Practitioner Adult Health
DX: E53.8 Deficiency of other specified B group vitamins (principal); E11.9 Type 2 diabetes mellitus without complications; I10 Essential (primary) hypertension

== ENCOUNTER → 2017-05-13 | Outpatient (CLI) | payer BC ==
[2017-05-13 14:57] LABS: BLOOD UREA NITROGEN 19 mg/dl (7-18); BUN/CREATININE RATIO 15.5 (10-20); CALCIUM 8.6 mg/dl (8.5-10.1); CARBON DIOXIDE 29 mmol/L (21-32); CHLORIDE 105 mmol/L (98-107); GLUCOSE 107 mg/dl (70-99); POTASSIUM 4.2 mmol/L (3.5-5.1); SODIUM 142 mmol/L (136-145)
== END | disposition home or self-care (01) ==
LOC: C.LAB1850 13:36
PROVIDERS: ATTEND Nurse Practitioner Adult Health
DX: E78.5 Hyperlipidemia, unspecified (principal)

== ENCOUNTER → 2017-07-10 | Outpatient (CLI) | payer BC ==
[~2017-07-10] MED LIST changes: -AZIT-57 PO; -BENZ100C7 PO; -CLR10 PO; -LVQ750 PO; -OMEP20CA9 PO; -POTA99TA PO; -PRED10TA PO; -PRED20TA PO; -PROB1TAB16 PO; -ROPI0.5T15 PO; -ROSU20TA PO; -UMEC1INH INH; -ZNTT/150 PO; +ZTHM250 PO
--- NOTE | 2017-07-10 16:08 | DIAGNOSTIC IMAGING REPORT ---
CHEST 2 VIEWS ROUTINE CLINICAL HISTORY: [id number] cough COMPARISON STUDY: 12/26/2016 FINDINGS: Chronic parenchymal scarring left lung base. Lungs otherwise appear clear. Several small calcific granulomas left midlung. No focal infiltrate. IMPRESSION: No acute process. Chronic parenchymal scarring left lung base The above report was generated using voice recognition software. It may contain grammatical, syntax or spelling errors. Electronically signed by: Arash Monique M.D. 07/10/2017 4:06 PM Dictated Date/Time: 07/10/2017 4:06 PM
== END | disposition home or self-care (01) ==
LOC: C.RAD1850 15:56
PROVIDERS: ATTEND Physician Assistant
DX: R05 Cough (principal); J98.4 Other disorders of lung

== ENCOUNTER → 2017-07-17 | Outpatient (CLI) | payer BC ==
[2017-07-17 12:31] LABS: CHOLESTEROL/HDL RATIO 2.2
== END | disposition home or self-care (01) ==
LOC: C.LAB1850 10:34
PROVIDERS: ATTEND Nurse Practitioner Adult Health
DX: E78.5 Hyperlipidemia, unspecified (principal)

== ENCOUNTER → 2017-08-08 | Outpatient (CLI) | payer BC ==
[2017-08-08 12:42] LABS: BLOOD UREA NITROGEN 19 mg/dl (7-18); BUN/CREATININE RATIO 14.4 (10-20); CALCIUM 9.4 mg/dl (8.5-10.1); CARBON DIOXIDE 24 mmol/L (21-32); CHLORIDE 106 mmol/L (98-107); GLUCOSE 123 mg/dl (70-99); POTASSIUM 4.4 mmol/L (3.5-5.1); SODIUM 139 mmol/L (136-145)
== END | disposition home or self-care (01) ==
LOC: C.LAB1850 10:12
PROVIDERS: ATTEND Physician Assistant
DX: I10 Essential (primary) hypertension (principal)

== ENCOUNTER → 2017-08-27 | Outpatient (CLI) | payer BC ==
--- NOTE | 2017-08-27 15:46 | DIAGNOSTIC IMAGING REPORT ---
(CHEST) THORAX WITHOUT CLINICAL HISTORY: 72 years-old Male presenting with COPD, lung nodule. TECHNIQUE: Multidetector CT imaging of the chest was performed without the use of intravenous contrast. IV contrast: None. A dose lowering technique was used consistent with the principles of ALARA (as low as reasonably achievable). COMPARISON: 12/26/2016 and 08/07/2016. CT DOSE (mGy.cm): The estimated cumulative dose is 900.33 mGy.cm. FINDINGS: [employer] topogram: Unremarkable. On soft tissue windows, bilateral gynecomastia. Normal thyroid and thoracic inlet. Numerous small axillary and mediastinal lymph nodes noted in addition to calcified mediastinal and left hilar lymph nodes. Pathologically enlarged nodes in the subcarinal region, which measure 13 mm in the short axis (series 4 image 133). Previously this node measured 12 mm, essentially unchanged. Prominent right hilar lymph nodes. The sam are incompletely evaluated without contrast. Atherosclerosis of the aorta. Normal heart size. Aortic valve and coronary artery calcification. No pericardial or pleural effusion. Numerous parenchymal calcifications in the liver and spleen indicate prior granulomatous infection. Borderline hepatic steatosis. Cholelithiasis. On lung windows, old calcified granuloma noted. Minimal dependent subpleural reticulation, unchanged. Solid 8 mm nodule in the right middle lobe (series 4 image 161), unchanged. Solid pulmonary nodule at the right lung base measuring 6 mm, which blends with adjacent atelectatic change, unchanged. Solid 4 mm fissural nodule in the left lower lobe (series 4 image 149), unchanged. No new pulmonary nodule. Minimal debris in the trachea along the right anterolateral aspect. On bone windows, minimal degenerative changes of the spine. IMPRESSION: 1. Stable solid pulmonary nodules, which have been stable since 2008. No new pulmonary nodule. 2. Persistent pathologically enlarged mediastinal lymph nodes, specifically in the subcarinal region. 3. Evidence of prior granulomatous infection. Please refer to below summary of Fleischner Society 2017 recommendations for follow-up of incidental CT nodules (Javier Booth et al. Guidelines for management of incidental pulmonary nodules detected on CT images: From the Fleischner Society 2017. Radiology 2017; 284: 228-243.) SOLID NODULES Single nodule; size < 6 mm * Low risk patients: No routine follow-up * High risk patients: Optional CT at 12 months Single nodule; size 6-8 mm * Low risk patients: CT at 6-12 months, then consider CT at 18-24 months * High risk patients: CT at 6-12 months, then at 18-24 months Single nodule; size > 8 mm * Either low or high risk patients: Considered CT at 3 months, PET/CT, or tissue sampling Multiple nodules; size < 6 mm * Low risk patients: No routine follow up * High risk patients: Optional CT at 12 months Multiple nodules; size 6-8 mm * Low risk patients: CT at 3-6 months, then consider CT at 18-24 months * High risk patients: CT at 3-6 months, then at 18-24 months Multiple nodules; size > 8 mm * Low risk patients: CT at 3-6 months, then consider at 18-24 months * High risk patients: CT at 3-6 months, then at 18-24 months Note: These guidelines apply to incidental nodules. These guidelines do not apply to patients younger than 35 years, immunocompromised patients, or patients with cancer. * Low risk patients: Minimal or absent history of smoking and/or other known risk factors * High risk patients: History of smoking, exposure to other carcinogens, emphysema, fibrosis, upper lobe location, family history of lung cancer, etc. * If a nodule up to 8 mm is partly solid or is ground glass, further follow-up is required after 24 months to exclude possible slow growing adenocarcinoma. SUBSOLID NODULES Single ground-glass nodule * Nodule size < 6 mm: No routine follow-up * Nodule size > or = 6 mm: CT at 6-12 months to confirm persistence, then CT every 2 years until 5 years Single part-solid nodule * Nodule size < 6 mm: No routine follow-up * Nodules size > or = 6 mm: CT at 3-6 months to confirm persistence. If unchanged and solid component remains < 6 mm, annual CT should be performed for 5 years Multiple nodules * Nodule size < 6 mm: CT at 3-6 months. If stable, consider CT at 2 and 4 years. * Nodules size > or = 6 mm: CT at 3-6 months. Subsequent management based on the most suspicious nodule(s) Electronically signed by: Isaac Sanderson M.D. 08/27/2017 3:45 PM Dictated Date/Time: 08/27/2017 3:35 PM
== END | disposition home or self-care (01) ==
LOC: C.CTS 15:14
PROVIDERS: ATTEND Internal Medicine Critical Care Medicine
DX: J44.9 Chronic obstructive pulmonary disease, unspecified (principal); R91.1 Solitary pulmonary nodule; R59.0 Localized enlarged lymph nodes

== ENCOUNTER 2017-09-16 13:16 | Inpatient (IN) | payer BC, OTHER ==
[~2017-09-16] VITALS: Ht 170.2 cm; Wt 103.5 kg
[2017-09-16] MEDS ORDERED: SODIUM CHLORIDE 0.9% 1000ML 1,000 ML IV STA (13:47)
[2017-09-16] MEDS ORDERED: LEVAQUIN 750MG / 150ML D5W IV STA (13:47)
--- NOTE | 2017-09-16 14:09 | DIAGNOSTIC IMAGING REPORT ---
CHEST ONE VIEW PORTABLE HISTORY: 72 years-old Male EVALUATE RESPIRATORY DISTRESS.DYSPNEA acute respiratory distress COMPARISON: Chest radiograph 07/10/2017, chest CT 08/27/2017 TECHNIQUE: Portable upright AP view of the chest FINDINGS: Cardiac silhouette is mildly enlarged and unchanged. Calcified mediastinal lymph nodes suggest prior granulomatous disease. No pneumothorax, pleural effusion or focal airspace consolidation. Linear subsegmental bibasilar opacities are unchanged compatible with chronic pleural parenchymal scarring. 8 mm noncalcified pulmonary nodule of the right middle lobe seen on comparison CT is not appreciated. Bones are grossly intact. IMPRESSION: 1. No acute cardiopulmonary process. 2. Evidence of prior granulomatous disease. The above report was generated using voice recognition software. It may contain grammatical, syntax or spelling errors. Electronically signed by: Bhanu Atkinson M.D. 09/16/2017 2:08 PM Dictated Date/Time: 09/16/2017 2:06 PM
[2017-09-16 14:26] LABS: HEMATOCRIT 38.7 % (42-52); MEAN CORPUSCULAR HEMOGLOBIN 32.9 pg (25-34); MEAN CORPUSCULAR HGB CONC 33.6 g/dl (32-36); MEAN PLATELET VOLUME 9.9 fL (7.4-10.4); PLATELET COUNT 213 K/uL (130-400); RED BLOOD COUNT 3.95 M/uL (4.7-6.1); WHITE BLOOD COUNT 12.75 K/uL (4.8-10.8)
[2017-09-16] MEDS ORDERED: ALBUTEROL 0.083% NEBU SOLN 3 ML VIAL INH STA (14:34)
[2017-09-16 14:35] LABS: INR 1.1 (0.9-1.1)
[2017-09-16] MEDS ORDERED: UMEC1INH INH (14:37)
[2017-09-16] MEDS ORDERED: POTA99TA PO (14:37)
[2017-09-16] MEDS ORDERED: PROB1TAB16 PO (14:37)
[2017-09-16] MEDS ORDERED: ROSU20TA PO (14:37)
[2017-09-16] MEDS ORDERED: ZNTT/150 PO (14:37)
[2017-09-16] MEDS ORDERED: CLR10 PO (14:37)
[2017-09-16] MEDS ORDERED: ROPI0.5T15 PO (14:37)
[2017-09-16] MEDS ORDERED: OPTIRAY 320 IV PRN (14:45)
[2017-09-16 14:47] LABS: BASO % 0.1 %; BASO ABS # 0.01 K/uL (0-0.2); COMPLETE YES; EOS % 0.1 %; IG% 0.3 %; LYMPH % 16.4 %; LYMPH ABS # 2.09 K/uL (1.2-3.4); MONO % 9.2 %; NEUT % 73.9 %
[2017-09-16 14:48] LABS: BUN/CREATININE RATIO 22.8 (10-20); CALCIUM 9.4 mg/dl (8.5-10.1); CREATININE 1.36 mg/dl (0.60-1.40); POTASSIUM 4.3 mmol/L (3.5-5.1)
[2017-09-16 14:52] LABS: ALB/GLOB RATIO 0.9 (0.9-2)
--- NOTE | 2017-09-16 15:55 | DIAGNOSTIC IMAGING REPORT ---
(CHEST FOR PE) ANGIO WITH CT DOSE: 586.63 mGycm HISTORY: 72 years-old Male presents with acute cough and hemoptysis with wheezing. History of pulmonary nodules TECHNIQUE: Multiple CTA images of the chest were obtained after the intravenous administration of 93 ml Optiray 320. Coronal and sagittal MIPS were obtained from the axial data set and were submitted for review. A dose lowering technique was utilized adhering to the principles of ALARA. COMPARISON: Portal chest radiograph of same day, chest CT 08/27/2017 and 05/30/2009 FINDINGS: CTA: Heart is normal in size with coronary arterial calcifications. Aortic annular calcifications also noted. Mild atherosclerotic plaquing of the thoracic aorta and proximal great vessels without aneurysm or dissection identified. There is mild dilation with extensive atherosclerosis involving the celiac trunk, only partially imaged. The pulmonary arterial tree is opacified to the level of the segmental branches. The subsegmental branches are not well seen secondary to opacification. No pulmonary embolism identified. CT CHEST: No dominant thyroid nodule. Persistent mediastinal adenopathy is noted with subcarinal lymph node measuring up to 2.6 x 1.5 cm, previously 2.2 x 1.2 cm. Calcified mediastinal lymph nodes are also seen compatible with prior granulomatous disease. No pneumothorax or pleural effusion. Consolidative and groundglass opacities of the basal lower lobes and right middle lobe are noted in conjunction with bronchial wall thickening of the seen within this distribution. Scattered calcified granulomas are present. There are unchanged scattered pulmonary nodules of the lungs, stable dating back to 05/30/2009, largest of which measures 8 mm the right lower lobe. Liver and gallstones are seen within the gallbladder lumen. Calcifications of the spleen and liver compatible with prior hematogenous granulomatous disease. Soft tissues are unremarkable. Bilateral symmetric gynecomastia. Bones appear intact. IMPRESSION: 1. No evidence of acute aortic pathology or pulmonary thromboembolic disease. 2. Bronchial wall thickening with scattered consolidative and groundglass opacities of the lower lobes and to a lesser extent the right middle lobe suggests bronchitis with bronchopneumonia or aspiration pneumonitis. 3. Stable appearance of the bilateral noncalcified pulmonary nodules. 4. Evidence of prior granulomatous disease. 4. Unchanged nonspecific pathologic adenopathy of the mediastinum as above. The above report was generated using voice recognition software. It may contain grammatical, syntax or spelling errors. Electronically signed by: Bhanu Atkinson M.D. 09/16/2017 3:54 PM Dictated Date/Time: 09/16/2017 3:46 PM
[2017-09-16] MEDS ORDERED: CEFTRIAXONE SOD INJ 1 GM ADDVIAL IV STA (16:02)
[2017-09-16] MEDS ORDERED: ACETAMINOPHEN 325 MG TAB PO PRN (17:00)
[2017-09-16] MEDS ORDERED: ALUMINUM/MAGNESIUM/SIMETH (MAALOX MAX) 30 ML UDC PO PRN (17:00)
[2017-09-16] MEDS ORDERED: ONDANSETRON INJ 2 MG/ML 2 ML VIAL IV PRN (17:00)
[2017-09-16] MEDS ORDERED: POLYETHYLENE (MIRALAX) 17 GM PACK PO PRN (17:00)
[2017-09-16] MEDS ORDERED: MAGNESIUM HYDROXIDE SUSP 30 ML UDC PO PRN (17:00)
[2017-09-16 17:10] VITALS: Ht 170.2 cm; Wt 103.5 kg
--- NOTE | 2017-09-16 17:25 | History and Physical ---
History & Physical Date & Time of Service: Sep 16, 2017 at 17:07 Chief Complaint: Wheezing, Coughing, Coughing Up Blood Primary Care Physician: Sushma Conti C.R.N.P. History of Present Illness Source: patient, family, clinic records, hospital records Patient is a pleasant 72 y/o male, with PMHx of COPD, asthma, HTN, T2DM, HLD, RLS, arthritis, anxiety/depression, chronic anemia, hypomagnesemia, and GERD, who presented to the ED because of worsening SOB, cough, and generalized body aches x1 week. Patient notes over the past several days, symptoms have greatly worsening. He notes a productive cough w/ dark/yellow sputum. He notes SOB w/ exertion. He has had decreased appetite over the last couple of days. He admits to difficulty/choking with eating at times- confirms this. +nausea/vomiting - 3 episodes of vomiting yesterday. Patient denies any fever, chills, sweats, lightheadedness, dizziness, vision changes, CP, palpitations, edema, wheezing, abdominal pain, diarrhea, urinary symptoms, melena, numbness/tingling, weakness , anxiety/depression, active bleeding, or new skin discoloration/changes. Past Medical/Surgical History Medical Problems: COPD asthma HTN T2DM HLD RLS arthritis anxiety/depression chronic anemia hypomagnesemia GERD Surgical Problems: (1) H/O total knee replacement Status: Resolved (2) Hx of appendectomy Status: Resolved Family History No pertinent family history Social History Smoking Status: Former Smoker Drug Use: none Marital Status: Housing status: lives with family Occupational Status: retired Immunizations History of Influenza Vaccine: Yes History of Tetanus Vaccine?: Yes History of Pneumococcal: Yes Pneumococcal Date: Nov 08, 2012 History of Hepatitis B Vaccine: Yes Multi-Drug Resistant Organisms History of MDRO: No Allergies Coded Allergies: Auranofin (Verified Allergy, Severe, SHORTNESS OF BREATH, 09/16/17) Benzyl Alcohol (Unverified Allergy, Intermediate, ., 09/16/17) Gold-containing Drug Products (Verified Allergy, Unknown, HIVES TO GOLD SHOTS, 09/16/17) Home Medications Scheduled Albuterol (Ventolin Hfa), 2 PUFFS INH QID Aspirin (Aspirin Ec), 81 MG PO DAILY Celecoxib (CeleBREX), 200 MG PO BID Escitalopram Oxalate (Lexapro), 10 MG PO DAILY Hctz/Lisinopril (Lisinopril/Hctz 10/12.5 Mg), 1 TAB PO DAILY Loratadine (Claritin), 10 MG PO DAILY Magnesium Oxide (Mag-Ox), 1 TAB PO DAILY Metformin Hcl (Glucophage), 1,000 MG PO BID Metoprolol Tartrate (Lopressor) (Lopressor), 75 MG PO BID Montelukast Sodium (Singulair), 10 MG PO DAILY Multiple Vitamin (Multivitamin), 1 TAB PO DAILY Potassium (Potassium), 2,000 MG PO DAILY Prednisone (Prednisone), 5 MG PO DAILY Probiotic Product (Probiotic), 1 TAB PO DAILY Ranitidine (Zantac), 300 MG PO DAILY Ropinirole (Requip), 0.5 MG PO QPM Rosuvastatin Calcium (Crestor), 20 MG PO DAILY Umeclidinium Tivoli (Incruse Ellipta), 1 PUFF INH DAILY Physical Exam Vital Signs Date Time Temp Pulse Resp B/P (MAP) Pulse Ox O2 Delivery O2 Flow Rate FiO2 09/16/17 15:40 93 21 125/57 95 Room Air 09/16/17 13:28 91 Room Air 09/16/17 13:23 37.0 101 22 129/83 91 Room Air General Appearance: no apparent distress, + obese Head: normocephalic, atraumatic Eyes: normal inspection, PERRL ENT: hearing grossly normal Neck: supple Respiratory/Chest: no respiratory distress, no accessory muscle use, + decreased breath sounds (throughout all lung miranda), + crackles (bilateral lung bases), + wheezing (expiratory wheeze bilateral mid/lower lobes ) Cardiovascular: regular rate, rhythm Abdomen/GI: normal bowel sounds, non tender, soft Back: normal inspection Extremities/Musculoskelatal: no calf tenderness, no pedal edema Neurologic/Psych: alert, normal mood/affect, oriented x 3 Skin: normal color, warm/dry, no rash Diagnostics Laboratory Results Results Past 24 Hours Test 09/16/17 14:10 Range/Units White Blood Count 12.75 4.8-10.8 K/uL Red Blood Count 3.95 4.7-6.1 M/uL Hemoglobin 13.0 14.0-18.0 g/dL Hematocrit 38.7 42-52 % Mean Corpuscular Volume 98.0 80-100 fL Mean Corpuscular Hemoglobin 32.9 25-34 pg Mean Corpuscular Hemoglobin Concent 33.6 32-36 g/dl Platelet Count 213 130-400 K/uL Mean Platelet Volume 9.9 7.4-10.4 fL Neutrophils (%) (Auto) 73.9 % Lymphocytes (%) (Auto) 16.4 % Monocytes (%) (Auto) 9.2 % Eosinophils (%) (Auto) 0.1 % Basophils (%) (Auto) 0.1 % Neutrophils # (Auto) 9.43 1.4-6.5 K/uL Lymphocytes # (Auto) 2.09 1.2-3.4 K/uL Monocytes # (Auto) 1.17 0.11-0.59 K/uL Eosinophils # (Auto) 0.01 0-0.5 K/uL Basophils # (Auto) 0.01 0-0.2 K/uL RDW Standard Deviation 52.5 36.4-46.3 fL RDW Coefficient of Variation 14.7 11.5-14.5 % Immature Granulocyte % (Auto) 0.3 % Immature Granulocyte # (Auto) 0.04 0.00-0.02 K/uL Prothrombin Time 12.0 9.0-12.0 SECONDS Prothromb Time International Ratio 1.1 0.9-1.1 Activated Partial Thromboplast Time 27.1 21.0-31.0 SECONDS Partial Thromboplastin Ratio 1.0 Sodium Level 138 136-145 mmol/L Potassium Level 4.3 3.5-5.1 mmol/L Chloride Level 104 98-107 mmol/L Carbon Dioxide Level 22 21-32 mmol/L Anion Gap 12.0 3-11 mmol/L Blood Urea Nitrogen 31 7-18 mg/dl Creatinine 1.36 0.60-1.40 mg/dl Est Creatinine Clear Calc Drug Dose 56.3 ml/min Estimated GFR () 59.8 Estimated GFR (Non- 51.6 BUN/Creatinine Ratio 22.8 10-20 Random Glucose 123 70-99 mg/dl Calcium Level 9.4 8.5-10.1 mg/dl Total Bilirubin 0.7 0.2-1 mg/dl Aspartate Amino Transf (AST/SGOT) 34 15-37 U/L Alanine Aminotransferase (ALT/SGPT) 36 12-78 U/L Alkaline Phosphatase 55 45-117 U/L Troponin I 0.044 0-0.045 ng/ml Total Protein 8.0 6.4-8.2 gm/dl Albumin 3.7 3.4-5.0 gm/dl Globulin 4.3 2.5-4.0 gm/dl Albumin/Globulin Ratio 0.9 0.9-2 Diagnostic Radiology (CHEST FOR PE) ANGIO WITH CT DOSE: 586.63 mGycm HISTORY: 72 years-old Male presents with acute cough and hemoptysis with wheezing. History of pulmonary nodules TECHNIQUE: Multiple CTA images of the chest were obtained after the intravenous administration of 93 ml Optiray 320. Coronal and sagittal MIPS were obtained from the axial data set and were submitted for review. A dose lowering technique was utilized adhering to the principles of ALARA. COMPARISON: Portal chest radiograph of same day, chest CT 08/27/2017 and 05/30/2009 FINDINGS: CTA: Heart is normal in size with coronary arterial calcifications. Aortic annular calcifications also noted. Mild atherosclerotic plaquing of the thoracic aorta and proximal great vessels without aneurysm or dissection identified. There is mild dilation with extensive atherosclerosis involving the celiac trunk, only partially imaged. The pulmonary arterial tree is opacified to the level of the segmental branches. The subsegmental branches are not well seen secondary to opacification. No pulmonary embolism identified. CT CHEST: No dominant thyroid nodule. Persistent mediastinal adenopathy is noted with subcarinal lymph node measuring up to 2.6 x 1.5 cm, previously 2.2 x 1.2 cm. Calcified mediastinal lymph nodes are also seen compatible with prior granulomatous disease. No pneumothorax or pleural effusion. Consolidative and groundglass opacities of the basal lower lobes and right middle lobe are noted in conjunction with bronchial wall thickening of the seen within this distribution. Scattered calcified granulomas are present. There are unchanged scattered pulmonary nodules of the lungs, stable dating back to 05/30/2009, largest of which measures 8 mm the right lower lobe. Liver and gallstones are seen within the gallbladder lumen. Calcifications of the spleen and liver compatible with prior hematogenous granulomatous disease. Soft tissues are unremarkable. Bilateral symmetric gynecomastia. Bones appear intact. IMPRESSION: 1. No evidence of acute aortic pathology or pulmonary thromboembolic disease. 2. Bronchial wall thickening with scattered consolidative and groundglass opacities of the lower lobes and to a lesser extent the right middle lobe suggests bronchitis with bronchopneumonia or aspiration pneumonitis. 3. Stable appearance of the bilateral noncalcified pulmonary nodules. 4. Evidence of prior granulomatous disease. 4. Unchanged nonspecific pathologic adenopathy of the mediastinum as above. The above report was generated using voice recognition software. It may contain grammatical, syntax or spelling errors. Electronically signed by: Bhanu Atkinson M.D. 09/16/2017 3:54 PM Dictated Date/Time: 09/16/2017 3:46 PM The status of this report is Signed. Draft = Not yet reviewed or approved by Radiologist. Signed = Reviewed and approved by Radiologist. CHEST ONE VIEW PORTABLE HISTORY: 72 years-old Male EVALUATE RESPIRATORY DISTRESS.DYSPNEA acute respiratory distress COMPARISON: Chest radiograph 07/10/2017, chest CT 08/27/2017 TECHNIQUE: Portable upright AP view of the chest FINDINGS: Cardiac silhouette is mildly enlarged and unchanged. Calcified mediastinal lymph nodes suggest prior granulomatous disease. No pneumothorax, pleural effusion or focal airspace consolidation. Linear subsegmental bibasilar opacities are unchanged compatible with chronic pleural parenchymal scarring. 8 mm noncalcified pulmonary nodule of the right middle lobe seen on comparison CT is not appreciated. Bones are grossly intact. IMPRESSION: 1. No acute cardiopulmonary process. 2. Evidence of prior granulomatous disease. The above report was generated using voice recognition software. It may contain grammatical, syntax or spelling errors. Electronically signed by: Bhanu Atkinson M.D. 09/16/2017 2:08 PM Dictated Date/Time: 09/16/2017 2:06 PM The status of this report is Signed. Draft = Not yet reviewed or approved by Radiologist. Signed = Reviewed and approved by Radiologist. EKG BRIGITTE BOSWELL ID:[id number] 16-SEP-2017 14:06:17 [facility] Normal sinus rhythm Normal ECG When compared with ECG of 28-DEC-2016 06:20, Vent. rate has increased BY 38 BPM Confirmed by MIC DIGGS ([id number]) on 09/16/2017 2:59:49 PM 25mm/s 10mm/mV 150Hz 8.0 SP2 12SL 241 HD BHARATI: 12 Referred by: Referred Self Confirmed By: MIC DIGGS Vent. rate 99 BPM AZ interval 136 ms QRS duration 76 ms QT/QTc 370/474 ms P-R-T axes 46 60 65 1945 (72 yr) Male 105in 1lb Room: Loc:15 On Site Manager:MERCY Uribe ind: Impression Assessment and Plan Patient is a pleasant 72 y/o male, with PMHx of COPD, asthma, HTN, T2DM, HLD, RLS, arthritis, anxiety/depression, chronic anemia, hypomagnesemia, and GERD, who presented to the ED because of worsening SOB, cough, and generalized body aches x1 week. Bilateral lower lobe PNA, COPD, asthma: - Admit to med/surg - O2 protocol - IV Levaquin + Rocephin - Continue Probiotic - DuoNebs QID and PRN - Continue home inhalers - Prednisone taper- 50 mg PO tomorrow - Check sputum culture and MRSA swab - Aspiration precautions and consult speech therapy Pulmonary nodules noted of CT- STABLE T2DM: - Hold Metformin 1000 mg BID - BSG ACHS and ISS HTN: Continue Lisinopril/HCTZ 10/12.5 mg daily, Lopressor 75 mg BID Hypomagnesemia: - Continue Mag-Ox supplement - Check mag level tomorrow AM Anxiety, depression: Continue Lexapro 10 mg daily HLD: Continue Crestor 20 mg daily Arthritis: Continue Celebrex 200 mg BID RLS: Continue Requip 0.5 mg HS GERD: Continue Zantac 150 mg daily DVT prophylaxis: Heparin SQ BID Code Status: LEVEL I, FULL Dispo: From home, lives w/ - PT/OT and CM consulted Level of Care Med/Surg Resuscitation Status FULL RESUSCITATION VTE Prophylaxis VTE Risk Assessment Done? Y/N: Yes Risk Level: Moderate Given or contraindicated: Unfractionated heparin SQ, T.E.D. Stockings, SCD's Reviewed: Pt Seen/Exam by Me History Pt with fevers and cough. He and family state that he has been coughing and choking a lot with meals. Pt states it is more with solids, but can happen with soup as well. Feeling a bit improved s/p abx and IVF. Family does state that he has a hx of Alzheimer's which has been progressing. He does become sexually inappropriate with women, but generally does ok in the hospital at night and has not required a sitter on prior hospitalizations. Agree with HPI/ROS as noted. General Appearance: WD/WN, no apparent distress Eye Exam: bilateral eye normal inspection, bilateral eye EOMI Respiratory: no respiratory distress, crackles, rhonchi Cardiovascular: normal peripheral pulses, regular rate, rhythm, no edema Gastrointestinal: non tender, soft Extremities: non-tender, no pedal edema Neurologic/Psychiatric: alert, normal mood/affect Skin Characteristics: normal color, warm/dry Assessment/Plan Agree with plan as outlined above b/l PNA noted on CTA, CXR neg Levaquin, rocephin WBC elevated Possibly aspiration given worsening coughing/choking with PO Speech eval COPD, nebs Hx of Alzheimer's, family denies hx of or need for sitter in the hospital Monitor Avoid ativan if issues arise as this can make Alzheimer's worse Would give seraquel if intervention needed
--- NOTE | 2017-09-16 17:48 | EMERGENCY ROOM VISIT NOTE ---
History Report prepared by Tk: Nimesh Mckeon Under the Supervision of: Dr. Jagdish Young D.O. First contact with patient: 13:37 Chief Complaint: RESPIRATORY PROBLEMS Stated Complaint: WHEEZING, COUGHING, COUGHING UP BLOOD History of Present Illness The patient is a 72 year old male who presents to the Emergency Room with complaints of a persistent cough beginning six days ago. He also complains of diaphoresis, SOB and vomiting. The patient's symptoms began with his cough. He states that his cough was initially non-productive, but later produced a yellow sputum. He states that the yellow color has been progressively getting darker. He vomited three times yesterday. Patient has been coughing up blood. The patient denies abdominal pain, chest pain, or diarrhea. He is not on any blood thinners. He has a history of COPD. The patient has had no recorded fevers above 100 degrees, but states that he feels feverish. Source of History: patient Onset: Six days ago Quality: other (cough) Timing: other (persistent) Associated Symptoms: + diaphoresis, + SOB, + vomiting, No chest pain, No abdominal pain Review of Systems See HPI for pertinent positives & negatives. A total of 10 systems reviewed and were otherwise negative. Past Medical & Surgical Medical Problems: (1) COPD (chronic obstructive pulmonary disease) (2) COPD (chronic obstructive pulmonary disease) (3) DM (diabetes mellitus) (4) Dyslipidemia (5) GERD (gastroesophageal reflux disease) (6) HTN (hypertension) (7) Hypoxia (8) Influenza A (9) OA (osteoarthritis) of knee (10) PNA (pneumonia) (11) Pneumonia (12) Rheumatoid arthritis (13) Sinus tachycardia Surgical Problems: (1) H/O total knee replacement (2) Hx of appendectomy Family History No pertinent family history Social History Smoking Status: Former Smoker Drug Use: none Marital Status: Housing Status: lives with family Occupation Status: retired Current/Historical Medications Scheduled Albuterol (Ventolin Hfa), 2 PUFFS INH QID Aspirin (Aspirin Ec), 81 MG PO DAILY Celecoxib (CeleBREX), 200 MG PO BID Escitalopram Oxalate (Lexapro), 10 MG PO DAILY Hctz/Lisinopril (Lisinopril/Hctz 10/12.5 Mg), 1 TAB PO DAILY Loratadine (Claritin), 10 MG PO DAILY Magnesium Oxide (Mag-Ox), 1 TAB PO DAILY Metformin Hcl (Glucophage), 1,000 MG PO BID Metoprolol Tartrate (Lopressor) (Lopressor), 75 MG PO BID Montelukast Sodium (Singulair), 10 MG PO DAILY Multiple Vitamin (Multivitamin), 1 TAB PO DAILY Potassium (Potassium), 2,000 MG PO DAILY Prednisone (Prednisone), 5 MG PO DAILY Probiotic Product (Probiotic), 1 TAB PO DAILY Ranitidine (Zantac), 300 MG PO DAILY Ropinirole (Requip), 0.5 MG PO QPM Rosuvastatin Calcium (Crestor), 20 MG PO DAILY Umeclidinium [place] (Incruse Ellipta), 1 PUFF INH DAILY Allergies Coded Allergies: Auranofin (Verified Allergy, Severe, SHORTNESS OF BREATH, 09/16/17) Benzyl Alcohol (Unverified Allergy, Intermediate, ., 09/16/17) Gold-containing Drug Products (Verified Allergy, Unknown, HIVES TO GOLD SHOTS, 09/16/17) Physical Exam Vital Signs Date Time Temp Pulse Resp B/P (MAP) Pulse Ox O2 Delivery O2 Flow Rate FiO2 09/16/17 17:06 99 23 134/75 92 Room Air 09/16/17 15:40 93 21 125/57 95 Room Air 09/16/17 13:28 91 Room Air 09/16/17 13:23 37.0 101 22 129/83 91 Room Air Physical Exam GENERAL: Sitting up in bed, disheveled, chronically ill appearing. EYE EXAM: normal conjunctiva. OROPHARYNX: no exudate, no erythema, lips, buccal mucosa, and tongue normal and mucous membranes are moist NECK: supple, no nuchal rigidity, no adenopathy, non-tender LUNGS: Clear to auscultation. Normal chest wall mechanics HEART: no murmurs, S1 normal and S2 normal ABDOMEN: abdomen soft, non-tender, normo-active bowel sounds, no masses, no rebound or guarding. BACK: Back is symmetrical on inspection and there is no deformity, no midline tenderness, no CVA tenderness. SKIN: no rashes and no bruising UPPER EXTREMITIES: upper extremities are grossly normal. LOWER EXTREMITIES: No pitting edema. NEURO EXAM: Normal sensorium, cranial nerves II-XII grossly intact, normal speech, no gross weakness of arms, no gross weakness of legs. Medical Decision & Procedures ER Provider Diagnostic Interpretation: Radiology results as stated below per my review and the radiologist's interpretation: (CHEST FOR PE) ANGIO WITH FINDINGS: CTA: Heart is normal in size with coronary arterial calcifications. Aortic annular calcifications also noted. Mild atherosclerotic plaquing of the thoracic aorta and proximal great vessels without aneurysm or dissection identified. There is mild dilation with extensive atherosclerosis involving the celiac trunk, only partially imaged. The pulmonary arterial tree is opacified to the level of the segmental branches. The subsegmental branches are not well seen secondary to opacification. No pulmonary embolism identified. CT CHEST: No dominant thyroid nodule. Persistent mediastinal adenopathy is noted with subcarinal lymph node measuring up to 2.6 x 1.5 cm, previously 2.2 x 1.2 cm. Calcified mediastinal lymph nodes are also seen compatible with prior granulomatous disease. No pneumothorax or pleural effusion. Consolidative and groundglass opacities of the basal lower lobes and right middle lobe are noted in conjunction with bronchial wall thickening of the seen within this distribution. Scattered calcified granulomas are present. There are unchanged scattered pulmonary nodules of the lungs, stable dating back to 05/30/2009, largest of which measures 8 mm the right lower lobe. Liver and gallstones are seen within the gallbladder lumen. Calcifications of the spleen and liver compatible with prior hematogenous granulomatous disease. Soft tissues are unremarkable. Bilateral symmetric gynecomastia. Bones appear intact. IMPRESSION: 1. No evidence of acute aortic pathology or pulmonary thromboembolic disease. 2. Bronchial wall thickening with scattered consolidative and groundglass opacities of the lower lobes and to a lesser extent the right middle lobe suggests bronchitis with bronchopneumonia or aspiration pneumonitis. 3. Stable appearance of the bilateral noncalcified pulmonary nodules. 4. Evidence of prior granulomatous disease. 4. Unchanged nonspecific pathologic adenopathy of the mediastinum as above. The above report was generated using voice recognition software. It may contain grammatical, syntax or spelling errors. Electronically signed by: Bhanu Atkinson M.D. 09/16/2017 3:54 PM CHEST ONE VIEW PORTABLE FINDINGS: Cardiac silhouette is mildly enlarged and unchanged. Calcified mediastinal lymph nodes suggest prior granulomatous disease. No pneumothorax, pleural effusion or focal airspace consolidation. Linear subsegmental bibasilar opacities are unchanged compatible with chronic pleural parenchymal scarring. 8 mm noncalcified pulmonary nodule of the right middle lobe seen on comparison CT is not appreciated. Bones are grossly intact. IMPRESSION: 1. No acute cardiopulmonary process. 2. Evidence of prior granulomatous disease. The above report was generated using voice recognition software. It may contain grammatical, syntax or spelling errors Electronically signed by: Bhanu Atkinson M.D. 09/16/2017 2:08 PM Laboratory Results 09/16/17 14:10 Red Blood Count 3.95, Mean Corpuscular Volume 98.0, Mean Corpuscular Hemoglobin 32.9, Mean Corpuscular Hemoglobin Concent 33.6, Mean Platelet Volume 9.9, Neutrophils (%) (Auto) 73.9, Lymphocytes (%) (Auto) 16.4, Monocytes (%) (Auto) 9.2, Eosinophils (%) (Auto) 0.1, Basophils (%) (Auto) 0.1, Neutrophils # (Auto) 9.43, Lymphocytes # (Auto) 2.09, Monocytes # (Auto) 1.17, Eosinophils # (Auto) 0.01, Basophils # (Auto) 0.01 09/16/17 14:10 Test 09/16/17 14:10 White Blood Count 12.75 K/uL (4.8-10.8) Red Blood Count 3.95 M/uL (4.7-6.1) Hemoglobin 13.0 g/dL (14.0-18.0) Hematocrit 38.7 % (42-52) Mean Corpuscular Volume 98.0 fL (80-100) Mean Corpuscular Hemoglobin 32.9 pg (25-34) Mean Corpuscular Hemoglobin Concent 33.6 g/dl (32-36) Platelet Count 213 K/uL (130-400) Mean Platelet Volume 9.9 fL (7.4-10.4) Neutrophils (%) (Auto) 73.9 % Lymphocytes (%) (Auto) 16.4 % Monocytes (%) (Auto) 9.2 % Eosinophils (%) (Auto) 0.1 % Basophils (%) (Auto) 0.1 % Neutrophils # (Auto) 9.43 K/uL (1.4-6.5) Lymphocytes # (Auto) 2.09 K/uL (1.2-3.4) Monocytes # (Auto) 1.17 K/uL (0.11-0.59) Eosinophils # (Auto) 0.01 K/uL (0-0.5) Basophils # (Auto) 0.01 K/uL (0-0.2) RDW Standard Deviation 52.5 fL (36.4-46.3) RDW Coefficient of Variation 14.7 % (11.5-14.5) Immature Granulocyte % (Auto) 0.3 % Immature Granulocyte # (Auto) 0.04 K/uL (0.00-0.02) Prothrombin Time 12.0 SECONDS (9.0-12.0) Prothromb Time International Ratio 1.1 (0.9-1.1) Activated Partial Thromboplast Time 27.1 SECONDS (21.0-31.0) Partial Thromboplastin Ratio 1.0 Anion Gap 12.0 mmol/L (3-11) Est Creatinine Clear Calc Drug Dose 56.3 ml/min Estimated GFR () 59.8 Estimated GFR (Non- 51.6 BUN/Creatinine Ratio 22.8 (10-20) Calcium Level 9.4 mg/dl (8.5-10.1) Total Bilirubin 0.7 mg/dl (0.2-1) Aspartate Amino Transf (AST/SGOT) 34 U/L (15-37) Alanine Aminotransferase (ALT/SGPT) 36 U/L (12-78) Alkaline Phosphatase 55 U/L (45-117) Troponin I 0.044 ng/ml (0-0.045) Total Protein 8.0 gm/dl (6.4-8.2) Albumin 3.7 gm/dl (3.4-5.0) Globulin 4.3 gm/dl (2.5-4.0) Albumin/Globulin Ratio 0.9 (0.9-2) Laboratory results per my review. Medications Administered Medications (Trade) Dose Ordered Sig/Yaritza Route Start Time Stop Time Status Last Admin Dose Admin Levofloxacin (Levaquin / D5W) 750 mg NOW STAT IV 09/16/17 13:47 09/16/17 13:49 DC 09/16/17 14:19 750 MG Sodium Chloride 1,000 ml @ 999 mls/hr Q1H1M STAT IV 09/16/17 13:47 09/16/17 14:47 DC 09/16/17 14:20 999 MLS/HR Albuterol Sulfate (Ventolin 0.083% 2.5MG/3ML Neb) 2.5 mg NOW STAT INH 09/16/17 14:34 09/16/17 14:36 DC 09/16/17 15:44 2.5 MG Prednisone (PredniSONE TAB) 60 mg STK-MED ONCE .ROUTE 09/16/17 15:43 09/16/17 15:44 DC 09/16/17 15:45 50 MG Ceftriaxone Sodium (Rocephin Inj) 1 gm NOW STAT IV 09/16/17 16:02 09/16/17 16:03 DC 09/16/17 16:41 1 GM ECG Indication: SOB/dyspnea Rate (beats per minute): 99 Rhythm: sinus rhythm Findings: no ectopy, other (Normal axis. ) ED Course ED COURSE: Vital signs were reviewed and showed tachycardia. The patients medical record was reviewed The above diagnostic studies were performed and reviewed. ED treatments and interventions as stated above. 1339: The patient was evaluated in room C1B. A complete history and physical examination was performed. 1347: Ordered Sodium Chloride 1000 ml @ 999 mls/hr IV, Levaquin / D5W 750 mg IV. 1434: Ordered Ventolin 0.083% 2.5 mg/3 mL Neb 2.5 mg INH. 1445: Ordered Prednisone Tab 50 mg PO. 1602: Ordered Rocephin Inj 1 gm IV. 1610: Upon reevaluation, the patient is resting comfortably. I discussed my findings with the patient and he understands and agrees with the treatment plan. Based on the patients age, coexisting illnesses, exam and lab findings the decision to treat as an inpatient was made. The patient remained stable while under my care. The patient will be evaluated for further management. Medical Decision Differential diagnoses includes but is not limited to pneumonia, bronchitis, COPD/Asthma exacerbation, pneumothorax, pulmonary embolism, congestive heart failure, acute coronary syndrome. Patient is a 72-year-old male who presents to ER for cough which has been worsening for the past 6 days associated with vomiting, fevers and diffuse weakness. CBC shows a leukocytosis of 13,000. BMP all LFTs, bilirubin was unremarkable. Troponin was detected but not elevated. Chest x-ray was unremarkable. CT chest shows multilobar inflammatory/pneumonia. Patient was covered with broad-spectrum antibiotics and admitted to internal medicine for pneumonia. He does have a history of COPD and was given steroids and a neb treatment. Medication Reconcilliation Current Medication List: was personally reviewed by me Blood Pressure Screening Patient's blood pressure: Normal blood pressure Blood pressure disposition: Did not require urgent referral Consults Time Called: 161 Consulting Physician: Dr. Buchanan -PAPITO Returned Call: [phone] I reviewed the patient's case with Dr. Buchanan. KALEEG will evaluate the patient for further management. Impression Primary Impression: Bilateral pneumonia Additional Impression: COPD (chronic obstructive pulmonary disease) Scribe Attestation The scribe's documentation has been prepared under my direction and personally reviewed by me in its entirety. I confirm that the note above accurately reflects all work, treatment, procedures, and medical decision making performed by me. Departure Information Dispostion Being Evaluated By Hospitalist Referrals Sushma Conti C.R.N.P. (PCP) Patient Instructions My [facility] Problem Qualifiers Primary Impression: Bilateral pneumonia Pneumonia type: due to unspecified organism Lung location: unspecified part of lung Qualified Codes: J18.9 - Pneumonia, unspecified organism Additional Impression: COPD (chronic obstructive pulmonary disease) COPD type: unspecified COPD Qualified Codes: J44.9 - Chronic obstructive pulmonary disease, unspecified
[2017-09-16 18:08] LABS: URINE APPEARANCE CLEAR (CLEAR); URINE BILIRUBIN NEG (NEG); URINE COLOR YELLOW; URINE NITRITE NEG (NEG); URINE PH 5.5 (4.5-7.5); URINE SPECIFIC GRAVITY 1.031 (1.000-1.030); UROBILINOGEN NEG (NEG)
[2017-09-16 18:13] LABS: MANUAL MICROSCOPIC REQUIRED? NO; REVIEW REQ? NO
[2017-09-16 18:32] VITALS: BP 128/73; PULSE 97; TEMP 36.6; O2SAT 92
[2017-09-16] MEDS: ALBUT/IPRATROP 3MG/0.5MG NEB 3 ML VIAL INH SCH (19:38)
[2017-09-16 19:39] VITALS: PULSE 94; O2SAT 93
[2017-09-16 20:00] VITALS: O2SAT 93
[2017-09-16] MEDS ORDERED: ALBUTEROL HFA 8 GM INHALER INH SCH (20:00)
[2017-09-16] MEDS: MONTELUKAST SOD 10 MG TAB PO SCH (20:37)
[2017-09-16] MEDS: METOPROLOL TARTRATE 25 MG TAB PO SCH (20:37)
[2017-09-16] MEDS: CeleBREX 200 MG CAP PO SCH (20:38)
[2017-09-16] MEDS: INSULIN ASPART 100 UNITS/ML 3 ML PEN SC SCH (20:39)
[2017-09-16] MEDS: ROPINIROLE HCL 0.25 MG TAB PO SCH (20:39)
[2017-09-16] MEDS: HEPARIN SOD 5000 UNIT/0.5 ML CARP SQ SCH (20:41)
[2017-09-16] MEDS ORDERED: INFLUENZA ADMINISTRATION CHARGE ONE (21:15)
[2017-09-16] MEDS ORDERED: INFLUENZA VACCINE HIGH DOSE 65+ 0.5 ML SYR IM. ONE (21:15)
[2017-09-17] VITALS (9 sets, daily range): BP systolic 115–137; BP diastolic 68–75; PULSE 75–97; TEMP 36.2–36.5; O2SAT 91–98
[2017-09-17 07:00] LABS: HEMATOCRIT 32.6 % (42-52); MEAN CELL VOLUME 97.3 fL (80-100); MEAN CORPUSCULAR HEMOGLOBIN 32.8 pg (25-34); MEAN CORPUSCULAR HGB CONC 33.7 g/dl (32-36); MEAN PLATELET VOLUME 9.9 fL (7.4-10.4); PLATELET COUNT 181 K/uL (130-400); RED BLOOD COUNT 3.35 M/uL (4.7-6.1); WHITE BLOOD COUNT 9.69 K/uL (4.8-10.8)
[2017-09-17] MEDS: ALBUT/IPRATROP 3MG/0.5MG NEB 3 ML VIAL INH SCH ×4 (07:11→19:16)
[2017-09-17 07:34] LABS: BUN/CREATININE RATIO 21.2 (10-20); CALCIUM 8.9 mg/dl (8.5-10.1); CREATININE 1.15 mg/dl (0.60-1.40); MAGNESIUM 1.8 mg/dl (1.8-2.4); POTASSIUM 4.3 mmol/L (3.5-5.1)
[2017-09-17] MEDS: CeleBREX 200 MG CAP PO SCH ×2 (07:49→20:10)
[2017-09-17] MEDS: ESCITALOPRAM OXALATE 10 MG TAB PO SCH (07:49)
[2017-09-17] MEDS: ASPIRIN 81 MG ECTAB PO SCH (07:50)
[2017-09-17] MEDS: MULTIVITAMIN TAB PO SCH (07:50)
[2017-09-17] MEDS: MAGNESIUM OXIDE 400 MG TAB PO SCH (07:50)
[2017-09-17] MEDS: METOPROLOL TARTRATE 25 MG TAB PO SCH ×2 (07:51→20:08)
[2017-09-17] MEDS: LORATADINE 10 MG TAB PO SCH (07:51)
[2017-09-17] MEDS: LISINOPRIL/HCTZ 10/12.5MG TAB PO SCH (07:52)
[2017-09-17] MEDS: ROSUVASTATIN CALCIUM 20 MG TAB PO SCH (07:54)
[2017-09-17] MEDS: LACTOBACILLUS ACIDOPHILUS (FLORANEX) TAB PO SCH (07:56)
[2017-09-17] MEDS: RANITIDINE HCL 150 MG TAB PO SCH (08:00)
[2017-09-17] MEDS ORDERED: POTASSIUM PO SCH (08:00)
[2017-09-17] MEDS: HEPARIN SOD 5000 UNIT/0.5 ML CARP SQ SCH ×2 (08:09→20:15)
[2017-09-17] MEDS: INSULIN ASPART 100 UNITS/ML 3 ML PEN SC SCH ×4 (08:10→20:38)
[2017-09-17] MEDS: LEVOFLOXACIN 750 MG TAB PO SCH (12:32)
[2017-09-17] MEDS ORDERED: LEVOFLOXACIN / D5W 750 MG in PREMIXED IN D5W 150 ML IV SCH (14:00)
--- NOTE | 2017-09-17 14:04 | DIAGNOSTIC IMAGING REPORT ---
VIDEO SWALLOW HISTORY: Aspiration pneumonitis TECHNIQUE: Video fluoroscopic evaluation of swallowing was performed in the AP and lateral projections by the speech pathology staff. The patient is fed nectar-thick and thin liquid barium, a barium coated wafer, and barium pudding. FLUOROSCOPY TIME: 1.4 minutes. NUMBER OF FLUOROSCOPY IMAGES: 0 COMPARISON STUDY: Barium swallow dated 12/10/2007 FINDINGS: The patient was administered thin liquid barium, nectar thick liquid, pudding, and cracker with paste. Swallowing mechanics were within normal limits for age. No aspiration was visualized. There is no penetration. IMPRESSION: 1. No aspiration identified. 2. Please see the speech pathologist report for detailed findings and recommendations. Electronically signed by: Chalino Silva M.D. 09/17/2017 2:03 PM Dictated Date/Time: 09/17/2017 2:02 PM
--- NOTE | 2017-09-17 14:54 | Hospitalist Progress Note ---
Hospitalist Progress Note Date of Service Sep 17, 2017. (Gladis Garcia ., MICHELLEC) Subjective Pt evaluation today including: conversation w/ patient, physical exam, chart review, lab review, review of studies, review of inpatient medication list Pain: None PO Intake: Tolerating PO diet Voiding: no voiding problems The patient reports feeling better today. He is feeling less weak and fatigued. He does still complain of a productive cough with yellow sputum, although he is coughing less today than when he arrived. He also states that his shortness of breath and wheezing have improved. He does still complain of [place]. He states that he often feels like his food and saliva are "going down the wrong tube" and intermittently feels a "jag" prickly sensation in his esophagus. He notes often coughing with eating. The patient denies fevers, chills, sweats, chest pain, palpitations, claudication, nausea, vomiting, abdominal pain, dysuria, hematuria, urinary retention, paralysis, weakness, numbness and tingling. Additional Comments: See HPI for pertinent positives and negatives. All other systems reviewed and negative. (Gladis Garcia ., VARSHA-C) Objective Vital Signs Date Time Temp Pulse Resp B/P (MAP) Pulse Ox O2 Delivery O2 Flow Rate FiO2 09/17/17 11:26 81 18 94 Room Air 09/17/17 08:00 Room Air 09/17/17 07:40 36.3 75 20 126/72 (90) 98 Room Air 09/17/17 07:13 97 18 98 Room Air 09/17/17 00:05 36.2 77 20 130/72 (91) 94 Room Air 09/17/17 00:00 93 Room Air 09/16/17 20:00 93 Room Air 09/16/17 19:39 94 18 93 Room Air 09/16/17 18:32 36.6 97 20 128/73 (91) 92 Room Air 09/16/17 18:23 85 21 132/77 92 09/16/17 17:06 99 23 134/75 92 Room Air 09/16/17 15:40 93 21 125/57 95 Room Air (Gladis Garcia ., VARSHA-C) Physical Exam Notes: General appearance: +Obese. Well-developed, well-nourished, no apparent distress Head: Normocephalic, atraumatic Eyes: Normal inspection, PERRL, EOMI ENT: Normal ENT inspection, hearing grossly normal, pharynx normal Neck: Supple, no JVD, trachea midline Respiratory/Chest: +Wheezing throughout. Decreased breath sounds in bases. No respiratory distress Cardiovascular: Regular rate & rhythm, no gallop, no murmur Abdomen/GI: Normal bowel sounds, non-tender, soft Extremities/Musculoskeletal: Normal inspection, no calf tenderness, no pedal edema Neurological/Psych: Alert, normal mood/affect, oriented x 3 Skin: Normal color, warm/dry, no rash (Gladis Garcia ., PA-C) Laboratory Results Last 24 Hours Test 09/16/17 17:30 09/16/17 20:04 09/17/17 06:35 09/17/17 07:50 Urine Color YELLOW Urine Appearance CLEAR Urine pH 5.5 Urine Specific [place] 1.031 Urine Protein NEG Urine Glucose (UA) NEG Urine Ketones NEG Urine Occult Blood NEG Urine Nitrite NEG Urine Bilirubin NEG Urine Urobilinogen NEG Urine Leukocyte Esterase NEG Bedside Glucose 164 mg/dl 124 mg/dl White Blood Count 9.69 K/uL Red Blood Count 3.35 M/uL Hemoglobin 11.0 g/dL Hematocrit 32.6 % Mean Corpuscular Volume 97.3 fL Mean Corpuscular Hemoglobin 32.8 pg Mean Corpuscular Hemoglobin Concent 33.7 g/dl RDW Standard Deviation 53.8 fL RDW Coefficient of Variation 15.0 % Platelet Count 181 K/uL Mean Platelet Volume 9.9 fL Sodium Level 137 mmol/L Potassium Level 4.3 mmol/L Chloride Level 105 mmol/L Carbon Dioxide Level 21 mmol/L Anion Gap 11.0 mmol/L Blood Urea Nitrogen 24 mg/dl Creatinine 1.15 mg/dl Est Creatinine Clear Calc Drug Dose 66.6 ml/min Estimated GFR () 73.3 Estimated GFR (Non- 63.2 BUN/Creatinine Ratio 21.2 Random Glucose 132 mg/dl Calcium Level 8.9 mg/dl Magnesium Level 1.8 mg/dl Test 09/17/17 12:05 Bedside Glucose 135 mg/dl (Gladis Garcia, PA-C) Assessment and Plan 72 y/o male with a history of COPD, asthma, HTN, T2DM, HLD, RLS, arthritis, anxiety/depression, chronic anemia, hypomagnesemia, and GERD, who presented to the ED on 09/16 because of worsening SOB, cough, and generalized body aches x 1 week. Bilateral lower lobe PNA, COPD, asthma--improving - Admit to med/surg - O2 protocol. Currently oxygenating well on room air - D/C Rocephin - Convert Levaquin from IV to 750 mg PO qd. Day #2 - Continue Probiotic - DuoNebs QIDR and q2h prn SOB/wheezing - Prednisone 50 mg PO qd. Day #2 - Sputum culture and MRSA swab negative - Speech therapy consulted appreciate recs: No ramiro aspiration on bedside evaluation. Continue regular diet and aspiration precautions. Schedule for video swallow - Video swallow negative for aspiration - Continue aspiration precautions for now as pt's history very concerning for aspiration or esophageal dysmotility - Continue Singulair 10 mg PO qd Pulmonary nodules noted of CT- STABLE Q2YL--bpon HgbA1c checked 05/06/17 was 7.0 - Hold Metformin 1000 mg PO BID - Insulin sliding scale - Check BSGs q ac and qhs - Recheck hgbA1c HTN--stable -Continue Lisinopril/HCTZ 10/12.5 mg PO qd, Lopressor 75 mg PO BID Hypomagnesemia--stable - Continue Mag-Ox supplement - Magnesium 1.8 on 09/17 Anxiety, depression - Continue Lexapro 10 mg PO qd HLD - Continue Crestor 20 mg PO qd Arthritis - Continue Celebrex 200 mg PO BID RLS - Continue Requip 0.5 mg PO HS GERD - Continue Zantac 150 mg PO qd DVT prophylaxis -Heparin 5000 units SC q12h -TONY [place] Code Status -Level I, FULL RESUSCITATION STATUS Dispo -From home, lives w/ -PT/OT and CM consulted (Gladis Garcia ., PA-C) I agree with PA assessment and plan and have seen and examined pt myself REsting comfortably in bed Pt reports difficulty swallowing and likely aspiration VSS Labs reviewed Swallow assessment unremarkable Scheduled for video swallow ?if COPD or worsening GERD, will try to contact regarding this Cont antibx at this time (Sonny Woods D.O.)
--- NOTE | 2017-09-17 15:38 | Medical Student: [facility] ---
Med Student History & Physical Date & Time of Service: Sep 17, 2017 at 15:13 Chief Complaint: Pneumonia Primary Care Physician: Sushma Conti C.R.N.P. History of Present Illness Source: patient Kodi is a 72 yo male with history of COPD, asthma, HTN, Hyperlipidemia, DM2, and GERD who presented following one week of progressive dyspnea with exertion, increased sputum production, blood-tinged sputum, difficulty swallowing, and n/v 3x in the day prior to admission. He described that the blood-tinged sputum was mild at first, but 3 days prior to admission he described it as heavy. Also endorses fever 3 days prior to admission. Otherwise denies lightheadedness, dizziness, vision changes, chest pain, palpitations, edema, wheezing, abdominal pain, diarrhea, dysuria, blood in stool. Initial imaging was negative for signs of acute pneumonia. WBC initially 12.75 but declined to 9.69. Past Medical/Surgical History Medical Problems: (1) Bilateral pneumonia Status: Acute (2) Bronchitis Status: Acute (3) COPD (chronic obstructive pulmonary disease) Status: Chronic (4) DM (diabetes mellitus) Status: Chronic (5) Dyslipidemia Status: Chronic (6) GERD (gastroesophageal reflux disease) Status: Chronic (7) HTN (hypertension) Status: Chronic (8) Hypertension Status: Acute (9) Influenza B Status: Acute (10) OA (osteoarthritis) of knee Status: Chronic (11) Pedal edema Status: Acute (12) Pneumonia Status: Acute (13) Rheumatoid arthritis Status: Chronic (14) Sepsis Status: Acute (15) Sepsis Status: Acute (16) Tachycardia Status: Acute Surgical Problems: (1) H/O Right total knee replacement 2006 Status: Resolved (2) Hx of appendectomy Status: Resolved (3) Cyst removal from R 3rd digit Family History Father: stroke ( at 68 from stroke) Social History Smoking Status: Former Smoker (20 pack year, quit greater than 40 years ago) Smokeless Tobacco Use: No Alcohol Use: occasionally (Used to drink heavily during service years, afterwards quit, but started drinking more over years up to a few a week.) Drug Use: none Marital Status: Housing status: lives with family Occupational Status: retired Immunizations History of Influenza Vaccine: Yes History of Tetanus Vaccine?: Yes History of Pneumococcal: Yes Pneumococcal Date: Nov 08, 2012 History of Hepatitis B Vaccine: Yes Allergies Coded Allergies: Auranofin (Verified Allergy, Severe, SHORTNESS OF BREATH, 09/16/17) Benzyl Alcohol (Unverified Allergy, Intermediate, ., 09/16/17) Gold-containing Drug Products (Verified Allergy, Unknown, HIVES TO GOLD SHOTS, 09/16/17) Medications Albuterol (Ventolin Hfa), 2 PUFFS INH QID Aspirin (Aspirin Ec), 81 MG PO DAILY Celecoxib (CeleBREX), 200 MG PO BID Escitalopram Oxalate (Lexapro), 10 MG PO DAILY Hctz/Lisinopril (Lisinopril/Hctz 10/12.5 Mg), 1 TAB PO DAILY Loratadine (Claritin), 10 MG PO DAILY Magnesium Oxide (Mag-Ox), 1 TAB PO DAILY Metformin Hcl (Glucophage), 1,000 MG PO BID Metoprolol Tartrate (Lopressor) (Lopressor), 75 MG PO BID Montelukast Sodium (Singulair), 10 MG PO DAILY Multiple Vitamin (Multivitamin), 1 TAB PO DAILY Potassium (Potassium), 2,000 MG PO DAILY Prednisone (Prednisone), 5 MG PO DAILY Probiotic Product (Probiotic), 1 TAB PO DAILY Ranitidine (Zantac), 300 MG PO DAILY Ropinirole (Requip), 0.5 MG PO QPM Rosuvastatin Calcium (Crestor), 20 MG PO DAILY Umeclidinium [place] (Incruse Ellipta), 1 PUFF INH DAILY Review of Systems Constitutional: + fever, + chills, + sweats, No weight loss, No weakness, No fatigue Eyes: No worsening of vision, No eye pain, No redness, No discharge, No diplopia, No problem reported ENT: + nasal symptoms (runny nose for months), + trouble swallowing, No hearing loss, No unusual epistaxis, No sore throat Respiratory: + cough, + sputum, + shortness of breath, + dyspnea on exertion, + hemoptysis, No wheezing, No dyspnea at rest Cardiovascular: No chest pain, No orthopnea, No PND, No edema, No claudication , No palpitations, No problem reported Abdomen: + nausea, + vomiting, No pain, No diarrhea, No constipation, No GI bleeding Musculoskeletal: No joint pain, No muscle pain, No swelling, No calf pain, No problem reported Genitourinary - Male: No hematuria, No dysuria, No urinary frequency, No urinary urgency, No urinary hesitancy, No urinary retention, No urinary incontinence, No problem reported Neurologic: No paralysis, No weakness, No numbness/tingling, No vertigo, No problem reported Hematologic / Lymphatic: No abnormal bleeding/bruising, No swollen lymph nodes , No night sweats, No problem reported Integumentary: No rash, No itch Allergic / Immunologic: No environmental allergies, No seasonal allergies Physical Exam Vital Signs (24 Hours) Date Time Temp Pulse Resp B/P (MAP) Pulse Ox O2 Delivery O2 Flow Rate FiO2 09/17/17 11:26 81 18 94 Room Air 09/17/17 08:00 Room Air 09/17/17 07:40 36.3 75 20 126/72 (90) 98 Room Air 09/17/17 07:13 97 18 98 Room Air 09/17/17 00:05 36.2 77 20 130/72 (91) 94 Room Air 09/17/17 00:00 93 Room Air 09/16/17 20:00 93 Room Air 09/16/17 19:39 94 18 93 Room Air 09/16/17 18:32 36.6 97 20 128/73 (91) 92 Room Air 09/16/17 18:23 85 21 132/77 92 09/16/17 17:06 99 23 134/75 92 Room Air 09/16/17 15:40 93 21 125/57 95 Room Air General Appearance: WD/WN, no apparent distress Head: normocephalic, atraumatic ENT: hearing grossly normal Neck: supple, no adenopathy, no JVD, no carotid bruits, trachea midline Respiratory/Chest: chest non-tender, no respiratory distress, no accessory muscle use, + wheezing (diffuse, examined shortly after breathing treatments) Cardiovascular: regular rate, rhythm, no edema, no gallop, no JVD, no murmur, normal peripheral pulses Abdomen/GI: normal bowel sounds, non tender, soft, no pulsatile mass Extremities/Musculoskelatal: normal inspection, no calf tenderness, normal capillary refill, no pedal edema, non-tender Neurologic/Psych: alert, normal mood/affect Skin: normal color, warm/dry, no rash Diagnostics Laboratory Results Results Past 24 Hours Test 09/16/17 17:30 09/16/17 20:04 09/17/17 06:35 09/17/17 07:50 Range/Units Urine Color YELLOW Urine Appearance CLEAR CLEAR Urine pH 5.5 4.5-7.5 Urine Specific [place] 1.031 1.000-1.030 Urine Protein NEG NEG Urine Glucose (UA) NEG NEG Urine Ketones NEG NEG Urine Occult Blood NEG NEG Urine Nitrite NEG NEG Urine Bilirubin NEG NEG Urine Urobilinogen NEG NEG Urine Leukocyte Esterase NEG NEG Bedside Glucose 164 124 70-99 mg/dl White Blood Count 9.69 4.8-10.8 K/uL Red Blood Count 3.35 4.7-6.1 M/uL Hemoglobin 11.0 14.0-18.0 g/dL Hematocrit 32.6 42-52 % Mean Corpuscular Volume 97.3 80-100 fL Mean Corpuscular Hemoglobin 32.8 25-34 pg Mean Corpuscular Hemoglobin Concent 33.7 32-36 g/dl RDW Standard Deviation 53.8 36.4-46.3 fL RDW Coefficient of Variation 15.0 11.5-14.5 % Platelet Count 181 130-400 K/uL Mean Platelet Volume 9.9 7.4-10.4 fL Sodium Level 137 136-145 mmol/L Potassium Level 4.3 3.5-5.1 mmol/L Chloride Level 105 98-107 mmol/L Carbon Dioxide Level 21 21-32 mmol/L Anion Gap 11.0 3-11 mmol/L Blood Urea Nitrogen 24 7-18 mg/dl Creatinine 1.15 0.60-1.40 mg/dl Est Creatinine Clear Calc Drug Dose 66.6 ml/min Estimated GFR () 73.3 Estimated GFR (Non- 63.2 BUN/Creatinine Ratio 21.2 10-20 Random Glucose 132 70-99 mg/dl Calcium Level 8.9 8.5-10.1 mg/dl Magnesium Level 1.8 1.8-2.4 mg/dl Test 09/17/17 12:05 Range/Units Bedside Glucose 135 70-99 mg/dl Microbiology Results 09/16/17 MRSA DNA Surveillance Screen - Final, Complete Specimen Negative for MRSA by DNA Probe 09/16/17 Gram Stain - Final, Resulted 09/16/17 Sputum Culture - Preliminary, Resulted MODERATE NORMAL CARROL Present, Final ... Diagnostic Radiology VIDEO SWALLOW HISTORY: Aspiration pneumonitis TECHNIQUE: Video fluoroscopic evaluation of swallowing was performed in the AP and lateral projections by the speech pathology staff. The patient is fed nectar-thick and thin liquid barium, a barium coated wafer, and barium pudding. FLUOROSCOPY TIME: 1.4 minutes. NUMBER OF FLUOROSCOPY IMAGES: 0 COMPARISON STUDY: Barium swallow dated 12/10/2007 FINDINGS: The patient was administered thin liquid barium, nectar thick liquid, pudding, and cracker with paste. Swallowing mechanics were within normal limits for age. No aspiration was visualized. There is no penetration. IMPRESSION: 1. No aspiration identified. 2. Please see the speech pathologist report for detailed findings and recommendations. (CHEST FOR PE) ANGIO WITH CT DOSE: 586.63 mGycm HISTORY: 72 years-old Male presents with acute cough and hemoptysis with wheezing. History of pulmonary nodules TECHNIQUE: Multiple CTA images of the chest were obtained after the intravenous administration of 93 ml Optiray 320. Coronal and sagittal MIPS were obtained from the axial data set and were submitted for review. A dose lowering technique was utilized adhering to the principles of ALARA. COMPARISON: Portal chest radiograph of same day, chest CT 08/27/2017 and 05/30/2009 FINDINGS: CTA: Heart is normal in size with coronary arterial calcifications. Aortic annular calcifications also noted. Mild atherosclerotic plaquing of the thoracic aorta and proximal great vessels without aneurysm or dissection identified. There is mild dilation with extensive atherosclerosis involving the celiac trunk, only partially imaged. The pulmonary arterial tree is opacified to the level of the segmental branches. The subsegmental branches are not well seen secondary to opacification. No pulmonary embolism identified. CT CHEST: No dominant thyroid nodule. Persistent mediastinal adenopathy is noted with subcarinal lymph node measuring up to 2.6 x 1.5 cm, previously 2.2 x 1.2 cm. Calcified mediastinal lymph nodes are also seen compatible with prior granulomatous disease. No pneumothorax or pleural effusion. Consolidative and groundglass opacities of the basal lower lobes and right middle lobe are noted in conjunction with bronchial wall thickening of the seen within this distribution. Scattered calcified granulomas are present. There are unchanged scattered pulmonary nodules of the lungs, stable dating back to 05/30/2009, largest of which measures 8 mm the right lower lobe. Liver and gallstones are seen within the gallbladder lumen. Calcifications of the spleen and liver compatible with prior hematogenous granulomatous disease. Soft tissues are unremarkable. Bilateral symmetric gynecomastia. Bones appear intact. IMPRESSION: 1. No evidence of acute aortic pathology or pulmonary thromboembolic disease. 2. Bronchial wall thickening with scattered consolidative and groundglass opacities of the lower lobes and to a lesser extent the right middle lobe suggests bronchitis with bronchopneumonia or aspiration pneumonitis. 3. Stable appearance of the bilateral noncalcified pulmonary nodules. 4. Evidence of prior granulomatous disease. 4. Unchanged nonspecific pathologic adenopathy of the mediastinum as above. The above report was generated using voice recognition software. It may contain grammatical, syntax or spelling errors. Electronically signed by: Bhanu Atkinson M.D. 09/16/2017 3:54 PM CHEST ONE VIEW PORTABLE HISTORY: 72 years-old Male EVALUATE RESPIRATORY DISTRESS.DYSPNEA acute respiratory distress COMPARISON: Chest radiograph 07/10/2017, chest CT 08/27/2017 TECHNIQUE: Portable upright AP view of the chest FINDINGS: Cardiac silhouette is mildly enlarged and unchanged. Calcified mediastinal lymph nodes suggest prior granulomatous disease. No pneumothorax, pleural effusion or focal airspace consolidation. Linear subsegmental bibasilar opacities are unchanged compatible with chronic pleural parenchymal scarring. 8 mm noncalcified pulmonary nodule of the right middle lobe seen on comparison CT is not appreciated. Bones are grossly intact. IMPRESSION: 1. No acute cardiopulmonary process. 2. Evidence of prior granulomatous disease. The above report was generated using voice recognition software. It may contain grammatical, syntax or spelling errors. Electronically signed by: Bhanu Atkinson M.D. 09/16/2017 2:08 PM Normal EKG Impression Assessment and Plan Mr. Arevalo is a 72 yo male with history of asthma, COPD, HTN, DM2, and GERD who presents for increased dyspnea, sputum production, blood-tinged sputum and fevers for 1 week. Initial imaging was negative for signs of CHF and Pneumonia. His history is also notable for dysphagia, concerning for aspiration. At this point, considering this COPD exacerbation vs. Pneumonia/ Pneumonitis. COPD Exacerbation: He has 2/3 cardinal symptoms of COPD exacerbation (increased oxygen demand and sputum volume and characteristics change) in the setting of older than 65 and comorbidity such as diabetes. For these reasons, he is to be admitted and treated symptomatically as well as covered with antibiotic therapy. Plan: Symptomatic treatment with DuoNeb and Montelukast inhaled therapy. Antibiotic coverage with Levaquin 750mg daily PO/IV, O2 therapy goal of 88-92%. PFT if possible during stay to assess COPD severity based on FEV. Pneumonia/Pneumonitis: Low suspicion for pneumonia, however higher concern for aspiration pneumonitis given dysphagia history. Initially given prednisone for concern for COPD exacerbation. Normal swallowing study. Plan: Consider resuming outpatient level of 5mg prednisone vs. d/c of prednisone completely. Would like to asses COPD severity first to make this decision. Continue with Levaquin coverage. Consider repeat CXR prior to discharge to look for changes concerning for pneumonitis that may become apparent after d/c of prednisone. Diabetes mellitus, type 2: Overall well managed with most in the 120's to 130's range. Asymptomatic. Plan: Continue sliding scale insulin. Monitor for changes in correlation to changes in prednisone therapy. Hypertension: Under control, asymptomatic. Plan: Continue HCTZ/Lisinopril 10/12.5mg PO daily, Metoprolol 75mg PO BID, Potassium 2000 daily, and Aspirin 81mg PO daily Hyperlipidemia: Follow outpatient. Plan: Continue Rosuvastatin 20 mg PO daily. GERD: Stable. Plan: Continue Ranitidine 300mg PO daily Allergic rhinitis: Runny nose symptom likely due to allergies, may need to follow up outpatient. Plan: Continue Claritin 10mg PO daily as needed DVT prophylaxis: If patient can tolerate ambulation, would recommend ambulation for prophylaxis. Plan: If unable to tolerate ambulation, then continue Heparin 5000 Units q12h SC. Level of Care Med/Surg Advanced Directives Existing Living Will: Yes Existing Power of Metal Box Maker: Yes DVT Prophylaxis unfractionated heparin SQ
[2017-09-17] MEDS ORDERED: CEFTRIAXONE SOD INJ 1 GM in DEXTROSE 5% ADD-VANTAGE 50ML 50 ML IV SCH (16:00)
[2017-09-17] MEDS: MONTELUKAST SOD 10 MG TAB PO SCH (20:08)
[2017-09-17] MEDS: ROPINIROLE HCL 0.25 MG TAB PO SCH (20:09)
[2017-09-18] VITALS (7 sets, daily range): BP systolic 115–127; BP diastolic 70–72; PULSE 69–86; TEMP 36.4; O2SAT 91–95
[2017-09-18] MEDS: ALBUT/IPRATROP 3MG/0.5MG NEB 3 ML VIAL INH SCH ×2 (07:08→11:13)
[2017-09-18 07:16] LABS: HEMATOCRIT 33.7 % (42-52); MEAN CORPUSCULAR HEMOGLOBIN 32.8 pg (25-34); MEAN CORPUSCULAR HGB CONC 33.5 g/dl (32-36); MEAN PLATELET VOLUME 9.9 fL (7.4-10.4); PLATELET COUNT 202 K/uL (130-400); RED BLOOD COUNT 3.44 M/uL (4.7-6.1); WHITE BLOOD COUNT 8.82 K/uL (4.8-10.8)
[2017-09-18 07:50] LABS: BUN/CREATININE RATIO 21.8 (10-20); CALCIUM 9.2 mg/dl (8.5-10.1); CREATININE 1.26 mg/dl (0.60-1.40); POTASSIUM 4.1 mmol/L (3.5-5.1)
[2017-09-18] MEDS: LISINOPRIL/HCTZ 10/12.5MG TAB PO SCH (07:50)
[2017-09-18] MEDS: CeleBREX 200 MG CAP PO SCH (07:50)
[2017-09-18] MEDS: METOPROLOL TARTRATE 25 MG TAB PO SCH (07:51)
[2017-09-18] MEDS: LORATADINE 10 MG TAB PO SCH (07:51)
[2017-09-18] MEDS: MAGNESIUM OXIDE 400 MG TAB PO SCH (07:51)
[2017-09-18] MEDS: ROSUVASTATIN CALCIUM 20 MG TAB PO SCH (07:51)
[2017-09-18] MEDS: RANITIDINE HCL 150 MG TAB PO SCH (07:51)
[2017-09-18] MEDS: ESCITALOPRAM OXALATE 10 MG TAB PO SCH (07:51)
[2017-09-18] MEDS: LACTOBACILLUS ACIDOPHILUS (FLORANEX) TAB PO SCH (07:52)
[2017-09-18] MEDS: MULTIVITAMIN TAB PO SCH (07:52)
[2017-09-18] MEDS: ASPIRIN 81 MG ECTAB PO SCH (07:52)
[2017-09-18 07:53] LABS: ESTIMATED AVERAGE GLUCOSE 146 mg/dl; HA1C FLAG Normal (Normal)
[2017-09-18] MEDS: HEPARIN SOD 5000 UNIT/0.5 ML CARP SQ SCH (08:37)
[2017-09-18] MEDS: INSULIN ASPART 100 UNITS/ML 3 ML PEN SC SCH ×2 (08:37→12:40)
--- NOTE | 2017-09-18 08:55 | Clinical Documentation Query ---
CLINICAL DOCUMENTATION QUERY , In your clinical opinion is this patient being managed for: ( x ) COPD exacerbation, POA ( ) Not Agree ( ) Other explanation of clinical findings (Please Explain) ( ) Unable to determine (Please Define) ( ) Need to Discuss The medical record reflects the following clinical findings, treatment, and risk factors. Clinical Indicators: 72 yo male presenting with productive cough and vomiting/[pneumonia. Assessments indicate pt has wheezing Treatment: prednisone, IV levaquin, duonebs Risk Factors: pneumonia, hx COPD Please clarify and document your clinical opinion in the progress notes and discharge summary. Terms such as "probable", "suspected", "likely", "questionable", "possible", or "still to be ruled out" are acceptable. IF IN AGREEMENT, YOU MUST DOCUMENT ABOVE DIAGNOSTIC STATEMENT IN DAILY PROGRESS NOTES AND DISCHARGE SUMMARY. This document is not part of the patient's record. Thank You, Christine Bob RN [phone]
--- NOTE | 2017-09-18 12:36 | Medical Student: [facility] ---
Med Student Progress Note Date of Service Sep 18, 2017. Subjective Pt evaluation today including: conversation w/ patient, physical exam Kodi feels about as well today as he did yesterday. He says he continues to cough up sputum and had episodes of blood-tinged sputum last evening. He says he feels a sensation of something sharp in his airways, like a needle is stuck in there. Otherwise, he has been doing well with ambulating and denies difficulties making it to the bathroom and back. He seemed concerned about being discharged, feeling as though we didn't find the cause of his problem and he is concerned that this will happen allover again after he goes home. I explained that his COPD will be prone to having exacerbations, and that our goal is to optimize his health, and to hopefully slow the progression of his condition. I explained that when he came to the hospital we assessed for more severe as well as treatable causes of his symptoms. This included CXR to look for pneumonia or any other findings that would be seen. We also performed a swallowing study to assess for aspiration risk. These came back with relatively benign findings in regards to his current issue. I discussed that there are a multitude of triggers for COPD such as viral infection, common cold, pollution, cigarette smoke, pet dander, allergens and so forth. These are factors that cannot be completely avoided in life, but he can do his best to minimize his risks. This can be washing his hands, avoiding sick contacts, avoiding rooms with smokers, avoiding allergens, as well as taking medications prescribed to him. At the end of our conversation, he voiced his concern that his is currently sick and he is worried he'll get sick again if discharged. Review of Systems Constitutional: No fever, No chills, No sweats, No weakness ENT: + nasal symptoms, No sore throat Respiratory: + cough, + sputum, + shortness of breath, + hemoptysis Cardiac: No chest pain, No edema, No palpitations Abdomen: No pain, No nausea, No vomiting, No diarrhea, No constipation, No GI bleeding Objective Vital Signs Date Time Temp Pulse Resp B/P (MAP) Pulse Ox O2 Delivery O2 Flow Rate FiO2 09/18/17 11:14 86 20 94 Room Air 09/18/17 08:40 Room Air 09/18/17 08:37 36.4 69 18 115/70 (85) 95 Room Air 09/18/17 08:00 95 Room Air 09/18/17 07:33 36.4 69 18 115/70 (85) 95 Room Air 09/18/17 07:11 83 18 94 Room Air 09/18/17 00:19 36.4 80 20 127/72 (90) 91 Room Air 09/18/17 00:00 Room Air 09/17/17 20:06 91 137/75 (95) 92 Room Air 09/17/17 20:00 Room Air 09/17/17 19:17 91 18 93 Room Air 09/17/17 15:23 Room Air 09/17/17 15:23 36.5 82 20 115/68 (84) 91 Room Air 09/17/17 15:21 91 18 93 Room Air Physical Exam General Appearance: WD/WN, no apparent distress ENT: hearing grossly normal Neck: supple, no adenopathy, no JVD, no carotid bruits, trachea midline, + pertinent finding (appears to have soft tissue swelling around the base of his neck. It is soft to palpation and non-pitting. No lymphadenopathy felt. ) Respiratory/Chest: chest non-tender, no respiratory distress, no accessory muscle use, + crackles (Congestion-like ), + wheezing (end-expiratory) Cardiovascular: regular rate, rhythm, no edema, no gallop, no JVD, no murmur Abdomen: non tender, soft Extremities: non-tender, normal inspection, no pedal edema Neurologic/Psychiatric: alert, normal mood/affect Lymphatic: no adenopathy Laboratory Results Last 24 Hours Test 09/17/17 16:02 09/17/17 20:19 09/18/17 06:39 09/18/17 08:02 Bedside Glucose 202 mg/dl 240 mg/dl 131 mg/dl White Blood Count 8.82 K/uL Red Blood Count 3.44 M/uL Hemoglobin 11.3 g/dL Hematocrit 33.7 % Mean Corpuscular Volume 98.0 fL Mean Corpuscular Hemoglobin 32.8 pg Mean Corpuscular Hemoglobin Concent 33.5 g/dl RDW Standard Deviation 53.4 fL RDW Coefficient of Variation 15.0 % Platelet Count 202 K/uL Mean Platelet Volume 9.9 fL Sodium Level 138 mmol/L Potassium Level 4.1 mmol/L Chloride Level 106 mmol/L Carbon Dioxide Level 25 mmol/L Anion Gap 8.0 mmol/L Blood Urea Nitrogen 28 mg/dl Creatinine 1.26 mg/dl Est Creatinine Clear Calc Drug Dose 60.8 ml/min Estimated GFR () 65.6 Estimated GFR (Non- 56.6 BUN/Creatinine Ratio 21.8 Random Glucose 141 mg/dl Estimated Average Glucose 146 mg/dl Hemoglobin A1c 6.7 % Calcium Level 9.2 mg/dl Test 09/18/17 11:32 Bedside Glucose 165 mg/dl Assessment and Plan Assessment and Plan: Mr. Arevalo is a 72 yo male with history of asthma, COPD, HTN, DM2, and GERD who presented for increased dyspnea, sputum production, blood-tinged sputum and fevers for 1 week. Initial imaging was negative for signs of CHF and Pneumonia. His history is also notable for dysphagia, concerning for aspiration. Swallowing study 24Oct was normal. At this point, considering this COPD exacerbation vs. Pneumonia/Pneumonitis. COPD Exacerbation: He has 2/3 cardinal symptoms of COPD exacerbation (increased oxygen demand and sputum volume and characteristics change) in the setting of older than 65 and comorbidity such as diabetes. For these reasons, he is to be admitted and treated symptomatically as well as covered with antibiotic therapy. Plan: Symptomatic treatment with DuoNeb and Montelukast inhaled therapy. Antibiotic coverage with Levaquin 750mg daily PO, O2 therapy goal of 88-92%. Recent outpatient PFT from 2016 showed mild to moderate COPD, per GOLD criteria , with FEV of 75%. Plan to discharge on oral Levaquin and continuation of inhaler therapy. Hemoptysis: Most recent CT on [id number] showed stable lymphadenopathy compared to previous imaging. Sputum sample report did not mention RBC's, and I have not seen any of this sputum personally. Unsure of etiology at this point, but may be due to chronic cough and bronchitis. Plan: Follow on outpatient basis. Pneumonia/Pneumonitis: Low suspicion for pneumonia, however higher concern for aspiration pneumonitis given dysphagia history. Initially given prednisone for concern for COPD exacerbation. Normal swallowing study. Plan: Consider resuming outpatient level of 5mg prednisone vs. d/c of prednisone completely. Continue with Levaquin outpatient. Consider repeat CXR prior to discharge to look for changes concerning for pneumonitis that may become apparent after d/c of prednisone. Diabetes mellitus, type 2: Overall well managed with most in the 120's to 130's range. Asymptomatic. Plan: Continue sliding scale insulin. Monitor for changes in correlation to changes in prednisone therapy. Hypertension: Under control, asymptomatic. Plan: Continue HCTZ/Lisinopril 10/12.5mg PO daily, Metoprolol 75mg PO BID, Potassium 2000 daily, and Aspirin 81mg PO daily Hyperlipidemia: Follow outpatient. Plan: Continue Rosuvastatin 20 mg PO daily. GERD: Stable. Plan: Continue Ranitidine 300mg PO daily Allergic rhinitis: Runny nose symptom likely due to allergies, may need to follow up outpatient. Plan: Continue Claritin 10mg PO daily as needed DVT prophylaxis: If patient can tolerate ambulation, would recommend ambulation for prophylaxis. Plan: If unable to tolerate ambulation, then continue Heparin 5000 Units q12h SC.
[2017-09-18] MEDS: LEVOFLOXACIN 750 MG TAB PO SCH (12:39)
[2017-09-18] MEDS ORDERED: PRED10TA PO (12:58)
[2017-09-18] MEDS ORDERED: OMEP20CA9 PO (12:58)
[2017-09-18] MEDS ORDERED: BENZ100C7 PO (12:58)
[2017-09-18] MEDS ORDERED: LVQ750 PO (12:58)
--- NOTE | 2017-09-18 13:18 | Discharge Instructions ---
Discharge Instructions Date of Service Sep 18, 2017. Admission Reason for Admission: Pneumonia Discharge Discharge Diagnosis / Problem: Pneumonia, chronic cough Discharge Goals Goal(s): Decrease discomfort, Improve function, Diagnostic testing, Therapeutic intervention Activity Recommendations Activity Limitations: resume your previous activity (as tolerated) . Instructions / Follow-Up Instructions / Follow-Up You were admitted with a bilateral lower lobe pneumonia. There was a concern that this was caused by aspiration, so you were evaluated by speech therapy and a video swallow was performed. This did not show any aspiration, and no changes were made to your diet. You have been started on medication for your chronic cough. Your medication for your acid reflux was also changed. Due to the discomfort you are having with swallowing, you will be set up to follow up with gastroenterology for further evaluation. Medications: *Please take Levaquin (levofloxacin) 750 mg by mouth daily for the next 4 days. This is an antibiotic that was started while you were in the hospital and will be a total of 7 day course. Please start this medication on 09/19. *You have been placed on a prednisone taper due to your COPD. Please take as instructed: -40 mg (4 tabs) by mouth daily for 2 days, then -20 mg (2 tabs) by mouth daily for 2 days, then -10 tab (1 tab) by mouth daily for 2 days, then stop Please stop your home dose of prednisone 5 mg daily while taking the above taper. You can then resume the 5 mg daily dose after the taper is completed. *Please stop ranitidine (Zantac). This is a medication for your acid reflux. This has been changed to omeprazole (Prilosec) 20 mg by mouth daily. *You may take Tessalon Perles 100 mg by mouth three times a day as needed for cough. *Continue your other home medications as prescribed. Follow up: *You will be scheduled to follow up with your primary care provider in 1 week regarding your hospital stay and changes to your mediations. *You will also be scheduled to follow up with gastroenterology (Dr. Ferraro) as an outpatient for further evaluation of your esophageal discomfort while swallowing. Please seek medical attention if you experience fevers, chills, sweats, chest pain, worsening shortness of breath, dizziness/lightheadedness, loss of consciousness, nausea, vomiting, numbness or tingling. Current Hospital Diet Patient's current hospital diet: AHA Diet (Heart Healthy), Diabetes Type 2 Diet Discharge Diet Recommended Diet: AHA Diet (Heart Healthy), Diabetes Type 2 Diet Pending Studies Studies pending at discharge: no Laboratory Results Hemoglobin A1c Test 09/18/17 06:39 Range/Units Estimated Average Glucose 146 mg/dl Hemoglobin A1c 6.7 H 4.5-5.6 % Lipid Panel Test 07/17/17 10:37 Range/Units Triglycerides Level 110 0-150 mg/dl Cholesterol Level 87 0-200 mg/dl HDL Cholesterol 40 mg/dl Cholesterol/HDL Ratio 2.2 LDL Cholesterol, Calculated 25 mg/dl Medical Emergencies . Who to Call and When: Medical Emergencies: If at any time you feel your situation is an emergency, please call 911 immediately. . Non-Emergent Contact Non-Emergency issues call your: Primary Care Provider, Gear Repairer Call Non-Emergent contact if: you have a fever, you have any medication questions . Past History Medical & Surgical History: (1) COPD (chronic obstructive pulmonary disease) (2) Bilateral pneumonia . "Provider Documentation" section prepared by Gladis Garcia. . VTE Core Measure Inpt VTE Proph given/why not?: Unfractionated heparin SQ, T.E.D. Stockings, SCD 's
--- NOTE | 2017-09-18 13:37 | Discharge Summary ---
Discharge Summary Date of Service Sep 18, 2017. (Gladis Garcia PA-C) Discharge Summary Admission Date: Sep 16, 2017 at 17:07 Discharge Date: Sep 18, 2017 Discharge Disposition: Home Principal Diagnosis: Bilateral pneumonia, mild COPD exacerbation Problems/Secondary Diagnoses: (1) COPD (chronic obstructive pulmonary disease) Status: Chronic (2) DM (diabetes mellitus) Status: Chronic (3) Dyslipidemia Status: Chronic (4) GERD (gastroesophageal reflux disease) Status: Chronic (5) HTN (hypertension) Status: Chronic (6) OA (osteoarthritis) of knee Status: Chronic (7) Rheumatoid arthritis Status: Chronic Immunizations: Have You Had Influenza Vaccine: Yes History of Tetanus Vaccine?: Yes History of Pneumococcal: Yes Pneumococcal Date: Nov 08, 2012 History of Hepatitis B Vaccine: Yes (Gladis Garcia PA-C) Medication Reconciliation New Medications: Omeprazole (Prilosec) 20 Mg Cap 1 CAP PO DAILY for 30 Days, #30 CAP 0 Refills Prednisone Tab (Prednisone) 10 Mg Tab 10 MG PO UD for 6 Days, #14 TAB Day 1-2: 40 mg (4 tabs) daily Day 3-4: 20 mg (2 tabs) daily Day 5-6: 10 mg (1 tab) daily Benzonatate (Benzonatate) 100 Mg Cap 100 MG PO TID PRN for Cough for 30 Days, #90 CAP Levofloxacin (Levofloxacin) 750 Mg Tab 750 MG PO DAILY@11 for 4 Days, #4 TAB First dose 09/19 Continued Medications: Albuterol (Ventolin Hfa) 60 Puffs/5400 Mcg Aers 2 PUFFS INH QID Aspirin (Aspirin Ec) 81 Mg Tab 81 MG PO DAILY Celecoxib (CeleBREX) 200 Mg Cap 200 MG PO BID, CAP Escitalopram Oxalate (Lexapro) 10 Mg Tab 10 MG PO DAILY, TAB Hctz/Lisinopril (Lisinopril/Hctz 10/12.5 Mg) 1 Ea Tab 1 TAB PO DAILY, TAB Loratadine (Claritin) 10 Mg Tab 10 MG PO DAILY Magnesium Oxide (Mag-Ox) 400 Mg Tab 1 TAB PO DAILY, TAB Metformin Hcl (Glucophage) 1,000 Mg Tab 1000 MG PO BID, TAB Metoprolol Tartrate (Lopressor) (Lopressor) 25 Mg Tab 75 MG PO BID, TAB Montelukast Sodium (Singulair) 10 Mg Tab 10 MG PO DAILY, TAB Multiple Vitamin (Multivitamin) 1 Tab Tab 1 TAB PO DAILY, TAB Potassium (Potassium) 99 Mg Tab 2000 MG PO DAILY Probiotic Product (Probiotic) 1 Tab Tab 1 TAB PO DAILY Ropinirole (Requip) 0.5 Mg Tab 0.5 MG PO QPM Rosuvastatin Calcium (Crestor) 20 Mg Tab 20 MG PO DAILY Umeclidinium [place] (Incruse Ellipta) 62.5 Mcg/Inh Inh 1 PUFF INH DAILY Discontinued Medications: Prednisone (Prednisone) 5 Mg Tab 5 MG PO DAILY, TAB Ranitidine (Zantac) 150 Mg Tab 300 MG PO DAILY TWO 150 MG TABLETS APARNA Discharge Exam The patient still complains of a cough that is sometimes productive with yellow sputum, as well as intermittent wheezing. He denies any shortness of breath or dyspnea on exertion. The patient denies fevers, chills, sweats, chest pain, palpitations, claudication, shortness of breath, nausea, vomiting, abdominal pain, dysuria, hematuria, urinary retention, paralysis, weakness, numbness and tingling. Review of Systems: Constitutional: No fever, No chills, No sweats Eyes: No worsening of vision, No eye pain, No diplopia ENT: + trouble swallowing ("jagging" sensation while swallowing but tolerating PO diet), No hearing loss, No sore throat Respiratory: + cough, + sputum, + wheezing, No shortness of breath, No dyspnea on exertion Cardiovascular: No chest pain, No claudication, No palpitations Abdomen: No pain, No nausea, No vomiting Musculoskeletal: No joint pain, No muscle pain, No swelling Genitourinary - Male: No hematuria, No dysuria, No urinary retention Neurologic: No paralysis, No weakness, No numbness/tingling Integumentary: No rash, No itch, No color change Physical Exam: General Appearance: WD/WN, no apparent distress Eyes: normal inspection, PERRL, EOMI ENT: normal ENT inspection, hearing grossly normal, pharynx normal Neck: supple, no JVD, trachea midline Respiratory/Chest: lungs clear, no respiratory distress, + decreased breath sounds (decreased in bases) Cardiovascular: regular rate, rhythm, no gallop, no murmur Abdomen / GI: normal bowel sounds, non tender, soft Extremities: normal inspection, no calf tenderness, no pedal edema Neurologic/Psychiatric: alert, normal mood/affect, oriented x 3 Skin: normal color, warm/dry, no rash (Gladis Garcia ., PAJose AntonioC) Hospital Course 72 y/o male with a history of COPD, asthma, HTN, T2DM, HLD, RLS, arthritis, anxiety/depression, chronic anemia, hypomagnesemia, and GERD, who presented to the ED on 09/16 because of worsening SOB, cough, and generalized body aches x 1 week. Bilateral lower lobe PNA, asthma--improving - Admit to med/surg - O2 protocol. Currently oxygenating well on room air - D/C Rocephin - Convert Levaquin from IV to 750 mg PO qd. Day #3. Continue on discharge for total 7 day course - Continue Probiotic - D/C with Tessalon Perles 100 mg PO TID prn cough - DuoNebs QIDR and q2h prn SOB/wheezing - Sputum culture and MRSA swab negative - Speech therapy consulted appreciate recs: No ramiro aspiration on bedside evaluation. Continue regular diet and aspiration precautions. Schedule for video swallow - Video swallow negative for aspiration - Will set up pt to f/u with GI due to esophageal discomfort with swallowing - Continue Singulair 10 mg PO qd Possible mild COPD exacerbation POA--improving - Nebs as above - Prednisone 50 mg PO qd. Day #3. D/C with prednisone taper: 40 mg x 2 days, 20 mg x 2 days, 10 mg x 2 days then stop. Resume home Prednisone 5 mg PO qd after taper is completed for RA Pulmonary nodules noted of CT- STABLE - Pt to have bronchoscopy w/Dr. Dodson in near future [id number] HgbA1c checked 05/06/17 was 7.0 - Hold Metformin 1000 mg PO BID - Insulin sliding scale - Check BSGs q ac and qhs - HgbA1c 6.7 on 09/18 HTN--stable -Continue Lisinopril/HCTZ 10/12.5 mg PO qd, Lopressor 75 mg PO BID Hypomagnesemia--stable - Continue Mag-Ox supplement - Magnesium 1.8 on 09/17 Anxiety, depression - Continue Lexapro 10 mg PO qd HLD - Continue Crestor 20 mg PO qd Arthritis - Continue Celebrex 200 mg PO BID RLS - Continue Requip 0.5 mg PO HS GERD - Continue Zantac 150 mg PO qd DVT prophylaxis -Heparin 5000 units SC q12h -TONY solano and SCDs Code Status -Level I, FULL RESUSCITATION STATUS Dispo -From home, lives w/ -PT/OT and CM consulted, safe to return home Total Time Spent: Greater than 30 minutes This includes examination of the patient, discharge planning, medication reconciliation, and communication with other providers. (Gladis Garcia ., PA-C) I agree with PA assessment and plan and have seen and examined pt myself Resting comfortably in bed No distress at this time Swallowing OK Video swallow unremarkable No episodes of aspiration during hospital stay DC on levaquin for 7 day course GI consult as OP (Sonny Woods, D.O.) Discharge Instructions Please refer to the electronic Patient Visit Report (Discharge Instructions) for additional information. (Gladis Garcia ., PA-C) Additional Copies To Sushma Conti C.R.N.P.
[2017-09-18] MEDS ORDERED: BENZONATATE 100MG CAP PO SCH (14:00)
== END 2017-09-18 14:23 | disposition home or self-care (01) | DRG 190 ==
LOC: C.EDB 13:18 → C.4E 17:07 → ENRESERV 17:17 → CANBEDREQ 18:33
PROVIDERS: ADMIT Family Medicine; ATTEND Hospitalist
DX: J44.0 Chronic obstructive pulmonary disease with (acute) lower respiratory infection (principal); J18.9 Pneumonia, unspecified organism; J44.1 Chronic obstructive pulmonary disease with (acute) exacerbation; R91.8 Other nonspecific abnormal finding of lung field; G30.9 Alzheimer's disease, unspecified; F02.80 Dementia in other diseases classified elsewhere, unspecified severity, without behavioral disturbance, psychotic disturbance, mood disturbance, and anxiety; E11.9 Type 2 diabetes mellitus without complications; I10 Essential (primary) hypertension; E83.42 Hypomagnesemia; F41.9 Anxiety disorder, unspecified; F32.9 Major depressive disorder, single episode, unspecified; E78.5 Hyperlipidemia, unspecified; M19.90 Unspecified osteoarthritis, unspecified site; G25.81 Restless legs syndrome; K21.9 Gastro-esophageal reflux disease without esophagitis; E66.9 Obesity, unspecified; Z68.35 Body mass index [BMI] 35.0-35.9, adult; Z87.891 Personal history of nicotine dependence; Z79.52 Long term (current) use of systemic steroids; Z79.82 Long term (current) use of aspirin; Z79.84 Long term (current) use of oral hypoglycemic drugs; Z79.899 Other long term (current) drug therapy

== ENCOUNTER → 2017-12-03 | Outpatient (CLI) | payer BC ==
[~2017-12-03] MED LIST changes: +BENZ100C7 PO; +CLR10 PO; -FRS/40 PO; +LVQ750 PO; +OMEP20CA9 PO; +OPTIRAY 320 IV PRN; -OXCA150T3 PO; -PANT1TAB48 PO; +POTA99TA PO; -PRED-301 PO; +PROB1TAB16 PO; -RANI300T PO; -ROPI0.25 PO; +ROPI0.5T15 PO; +ROSU20TA PO; -SIMV40TA4 PO; -SYMIN160 INH; -TMF75 PO; +UMEC1INH INH; -ZTHM250 PO
--- NOTE | 2017-12-03 12:16 | DIAGNOSTIC IMAGING REPORT ---
(CHEST) THORAX WITH CT DOSE: 972.07 mGy.cm HISTORY: Lymphadenopathy R06.00 [id number] Lymphadenopathyappt sched 12-03-16-8 @ 12:00 TECHNIQUE: Multiaxial CT images of the chest were performed following the intravenous administration of contrast. A dose lowering technique was utilized adhering to the principles of ALARA. COMPARISON: 2008, 2016 FINDINGS: Several noncalcified as well as calcified parenchymal nodules are present. These have been stable compared to prior study dated 2008 and considered benign. Mediastinal and subcarinal adenopathy is considered stable over the same time pain. Multiple calcified left hilar and left. Mediastinal calcified nodes are also stable over several prior exams. It is not appear to been new or interval process compared to multiple prior exams. Findings are felt to be primarily on the basis of chronic granulomatous change. There are several calcified granulomas scattered throughout the liver as well as spleen. There is extensive atherosclerotic change of the celiac axis with narrowing at its origin as juncture with aorta. This is been present previously. IMPRESSION: 1. Stable mediastinal and hilar adenopathy, as well as multiple stable parenchymal nodules and calcified granulomas. 2. Stable multiple calcifications of the liver and spleen with extensive stable atherosclerotic change and ectasia of the celiac axis. 3. As all findings are benign compared to several prior exams, all findings are considered stable with no further follow-up recommended. The above report was generated using voice recognition software. It may contain grammatical, syntax or spelling errors. Electronically signed by: Arash Monique M.D. 12/03/2017 12:15 PM Dictated Date/Time: 12/03/2017 12:08 PM
== END | disposition home or self-care (01) ==
LOC: C.CTS 11:32
PROVIDERS: ATTEND Physician Assistant
DX: R06.00 Dyspnea, unspecified (principal); R59.1 Generalized enlarged lymph nodes; D73.89 Other diseases of spleen; K76.89 Other specified diseases of liver; I77.811 Abdominal aortic ectasia

== ENCOUNTER → 2018-01-22 | Outpatient (CLI) | payer BC ==
[~2018-01-22] MED LIST changes: -OPTIRAY 320 IV PRN
[2018-01-22 14:35] LABS: BASO % 0.2 %; BASO ABS # 0.02 K/uL (0-0.2); EOS % 1.3 %; EOS ABS # 0.13 K/uL (0-0.5); HEMATOCRIT 40.2 % (42-52); HEMOGLOBIN 13.6 g/dL (14.0-18.0); IG# 0.02 K/uL (0.00-0.02); LYMPH % 19.7 %; LYMPH ABS # 1.97 K/uL (1.2-3.4); MEAN CELL VOLUME 97.8 fL (80-100); MEAN CORPUSCULAR HEMOGLOBIN 33.1 pg (25-34); MEAN CORPUSCULAR HGB CONC 33.8 g/dl (32-36); MEAN PLATELET VOLUME 9.8 fL (7.4-10.4); MONO % 8.7 %; MONO ABS # 0.87 K/uL (0.11-0.59); NEUT % 69.9 %; NEUT ABS # 6.98 K/uL (1.4-6.5); PLATELET COUNT 206 K/uL (130-400); RED CELL DISTRIBUTION WIDTH CV 14.2 % (11.5-14.5); RED CELL DISTRIBUTION WIDTH SD 50.6 fL (36.4-46.3); WHITE BLOOD COUNT 9.99 K/uL (4.8-10.8)
[2018-01-22 15:05] LABS: ALBUMIN 4.1 gm/dl (3.4-5.0); ALT/SGPT 62 U/L (12-78); AST/SGOT 32 U/L (15-37); BLOOD UREA NITROGEN 29 mg/dl (7-18); CALCIUM 9.6 mg/dl (8.5-10.1); CARBON DIOXIDE 23 mmol/L (21-32); CREATININE 1.66 mg/dl (0.60-1.40); GLUCOSE 133 mg/dl (70-99); POTASSIUM 4.7 mmol/L (3.5-5.1); SODIUM 137 mmol/L (136-145)
[2018-01-22 15:16] LABS: ALKALINE PHOSPHATASE 64 U/L (45-117); TOTAL PROTEIN 8.7 gm/dl (6.4-8.2)
== END | disposition home or self-care (01) ==
LOC: C.LAB1850 13:56
PROVIDERS: ATTEND Internal Medicine Cardiovascular Disease
DX: E78.5 Hyperlipidemia, unspecified (principal)

== ENCOUNTER → 2018-01-27 | Outpatient (CLI) | payer BC | END | disposition home or self-care (01) | LOC: C.LAB1850 12:30 | PROVIDERS: ATTEND Internal Medicine Nephrology | DX: I87.2 Venous insufficiency (chronic) (peripheral) (principal); N18.9 Chronic kidney disease, unspecified ==

== ENCOUNTER → 2018-01-30 | Outpatient (CLI) | payer BC ==
--- NOTE | 2018-01-30 13:58 | DIAGNOSTIC IMAGING REPORT ---
ULTRASOUND KIDNEYS AND BLADDER CLINICAL HISTORY: Chronic kidney disease. COMPARISON STUDY: Abdominal CT dated 06/07/2014. TECHNIQUE: Real-time, grayscale, and color flow sonography of the kidneys and bladder is performed. Images are reviewed in the transverse and longitudinal planes. FINDINGS: Kidneys: The kidneys demonstrate cortical atrophy. The right kidney measures 12.1 x 5.4 x 7.9 cm and the left kidney measures 14.2 x 6.1 x 7.6 cm. There is no hydronephrosis. No shadowing renal calculi are identified. There are numerous bilateral renal cysts measuring up to 5.1 cm. There is no sonographic evidence of solid mass lesion. No perinephric fluid is identified. Bladder: The bladder is partially decompressed. The bladder wall appears thickened and trabeculated suggesting chronic outlet obstruction. Bilateral ureteral jets were seen. Upper abdomen: Survey images of the liver show evidence of hepatomegaly and hepatic steatosis. IMPRESSION: 1. The kidneys demonstrate cortical atrophy and are without hydronephrosis. 2. The appearance of the bladder suggests chronic outlet obstruction. 3. Hepatic steatosis. Electronically signed by: Benito Rogers M.D. 01/30/2018 1:56 PM Dictated Date/Time: 01/30/2018 1:54 PM
== END | disposition home or self-care (01) ==
LOC: C.ULTR 13:06
PROVIDERS: ATTEND Internal Medicine Nephrology
DX: I87.2 Venous insufficiency (chronic) (peripheral) (principal); N18.9 Chronic kidney disease, unspecified; N26.1 Atrophy of kidney (terminal); K76.0 Fatty (change of) liver, not elsewhere classified

== ENCOUNTER → 2018-02-21 | Outpatient (CLI) | payer BC ==
[2018-02-21 10:41] LABS: HEMOGLOBIN A1C 7.8 % (4.5-5.6)
== END | disposition home or self-care (01) ==
LOC: C.LAB1850 08:49
PROVIDERS: ATTEND Neuromusculoskeletal Medicine & OMM
DX: E78.5 Hyperlipidemia, unspecified (principal); E11.9 Type 2 diabetes mellitus without complications

== ENCOUNTER → 2018-04-03 | Outpatient (CLI) | payer BC ==
[2018-04-03 12:10] LABS: BASO % 0.3 %; BASO ABS # 0.03 K/uL (0-0.2); EOS % 2.7 %; EOS ABS # 0.23 K/uL (0-0.5); HEMATOCRIT 39.6 % (42-52); IG# 0.03 K/uL (0.00-0.02); MEAN CORPUSCULAR HEMOGLOBIN 32.5 pg (25-34); MEAN CORPUSCULAR HGB CONC 32.8 g/dl (32-36); MEAN PLATELET VOLUME 10.4 fL (7.4-10.4); MONO % 9.6 %; MONO ABS # 0.83 K/uL (0.11-0.59); NEUT % 51.1 %; PLATELET COUNT 174 K/uL (130-400); RED CELL DISTRIBUTION WIDTH SD 54.8 fL (36.4-46.3); WHITE BLOOD COUNT 8.62 K/uL (4.8-10.8)
[2018-04-03 12:21] LABS: BLOOD UREA NITROGEN 22 mg/dl (7-18); CALCIUM 9.1 mg/dl (8.5-10.1); CARBON DIOXIDE 27 mmol/L (21-32); CREATININE 1.28 mg/dl (0.60-1.40); GLUCOSE 92 mg/dl (70-99); PHOSPHORUS 3.1 mg/dl (2.5-4.9); POTASSIUM 4.3 mmol/L (3.5-5.1); SODIUM 138 mmol/L (136-145)
== END | disposition home or self-care (01) ==
LOC: C.LAB1850 10:01
PROVIDERS: ATTEND Internal Medicine Nephrology
DX: I87.2 Venous insufficiency (chronic) (peripheral) (principal); N18.9 Chronic kidney disease, unspecified

== ENCOUNTER 2019-12-12 08:19 | Inpatient (IN) ==
[2019-12-12] MEDS ORDERED: SODIUM CHLORIDE 0.9% 500 ML IV SCH (09:30)
[2019-12-12 09:52] LABS: Basophils # (auto) 0.01 K/uL (0-0.2); Basophils % (auto) 0.1 %; Eosinophils % (auto) 0.8 %; Hematocrit (blood only) 38.8 % (42-52); Hemoglobin 12.9 g/dL (14.0-18.0); Immature Granulocytes # (auto) 0.04 K/uL (0.00-0.02); Immature Granulocytes % (auto) 0.3 %; Lymphocytes # (auto) 1.74 K/uL (1.2-3.4); Lymphocytes % (auto) 13.4 %; Mean Corpuscular Hemoglobin 33.7 pg (25-34); Mean Corpuscular Hgb Conc 33.2 g/dL (32-36); Mean Corpuscular Volume 101.3 fL (80-100); Mean Platelet Volume 9.8 fL (7.4-10.4); Monocytes # (auto) 1.24 K/uL (0.11-0.59); Monocytes % (auto) 9.5 %; Neutrophils # (auto) 9.89 K/uL (1.4-6.5); Neutrophils % (auto) 75.9 %; Platelet Count 184 K/uL (130-400); RDW Coefficient of Variation 14.5 % (11.5-14.5); RDW Standard Deviation 53.1 fL (36.4-46.3); Red Blood Count 3.83 M/uL (4.7-6.1); White Blood Count 13.02 K/uL (4.8-10.8)
--- NOTE | 2019-12-12 10:04 | CT Scan Report ---
CT head/brain wo con CLINICAL HISTORY: 74 years-old Male with fall. Acute head injury status post fall TECHNIQUE: Multiple axial CT images of the head were obtained without contrast. A dose lowering tech nique was utilized adhering to the principles of ALARA. CT DOSE: 537.48 mGy.cm COMPARISON: Head CT 08/23/2015 FINDINGS: No acute intracranial hemorrhage, midline shift, intracranial mass, hydrocephalus, territorial ischem ia or abnormal extra-axial collection. Mild age-related involutional changes. Patchy white matter hyp odensities suggest chronic microvascular ischemic disease. Cerebral vascular calcifications are noted . Remote lacunar infarct versus prominent perivascular space in the left cerebral hemisphere on image 11 series 2 measures 9 mm, unchanged. The calvarium is intact. Moderate mucosal thickening of the ethmoid and sphenoid sinuses. Trace righ t mastoid effusion. The left mastoid air cells and middle ear cavities appear clear. The soft tissues and orbits are unremarkable. IMPRESSION: No acute intracranial abnormality or calvarial fracture. ACT 112: Negative or not required by law. The above report was generated using voice recognition software. It may contain grammatical, syntax o r spelling errors. Electronically signed by: Bhanu Atkinson M.D. 12/12/2019 10:03 AM
[2019-12-12 10:09] LABS: Albumin Level 3.2 gm/dl (3.4-5.0); BUN Creatinine Ratio 20.8 (10-20); Calcium 9.6 mg/dl (8.5-10.1); Creatinine Clr Calc Pharmacy 67.8 ml/min; Est GFR (African American) 73.8; Est GFR (Non-African American) 63.7; Potassium 4.1 mmol/L (3.5-5.1)
[2019-12-12 10:11] LABS: Albumin Globulin Ratio 0.7 (0.9-2); Bilirubin,Total 0.6 mg/dl (0.2-1); Globulin 4.3 gm/dl (2.5-4.0); Total Protein 7.5 gm/dl (6.4-8.2)
--- NOTE | 2019-12-12 10:24 | XRay Report ---
XR chest 1V portable HISTORY: 74 years-old Male weakness acute weakness COMPARISON: Chest radiographs 12/08/2019 TECHNIQUE: Portable AP view of the chest FINDINGS: Cardiac silhouette is enlarged, unchanged. Mild subsegmental bibasilar atelectasis/scarring is unchan ged. There is no pneumothorax, pleural effusion or overt pulmonary edema. No airspace consolidation t ypical for pneumonia. Degenerative changes of the shoulders and spine. IMPRESSION: No acute process. ACT 112: Negative or not required by law. The above report was generated using voice recognition software. It may contain grammatical, syntax o r spelling errors. Electronically signed by: Bhanu Atkinson M.D. 12/12/2019 10:23 AM
[2019-12-12 10:25] LABS: Magnesium 1.6 mg/dl (1.8-2.4); Troponin I < 0.015 ng/ml (0-0.045)
[2019-12-12] MEDS ORDERED: ALBUT/IPRATROP 3MG/0.5MG NEB 3 ML VIAL NEB STA (10:25)
[2019-12-12] MEDS ORDERED: levoFLOXacin 500 MG TAB PO STA (10:26)
--- NOTE | 2019-12-12 10:53 | Emergency Department Note ---
ED Visit Note I saw this patient in conjunction with Dr. Haskins, and agree with the impression and assessment as outlined in his documentation. For all pertinent details and findings regarding this patient's care please see his documentation. . Resident Activity Tracking Resident Involvement: Resident Care Provided Care Provided: Adult ED
--- NOTE | 2019-12-12 11:03 | Emergency Department Note ---
Entered by Jeni Blue acting as a scribe for Butch Haskins DO History of Present Illness General Chief complaint: Fall Stated complaint: fall/ head & back pain Time Seen by Provider: 12/12/19 08:45 Source: patient Mode of arrival: EMS Limitations: no limitations History of Present Illness Onset (ago): hour(s) 3 Radiation: non-radiation Pain Consistency: + now resolved Maximum Pain Intensity: 0 Relieved By: + none Exacerbated By: + other ("legs gave out") Associated symptoms: + weakness (left sided) and + other (+LOC, +bladder incontinence) Treatments prior to arrival: none The patient is a 74 year old male who presents to the ED with complaints of a fall that occurred at 0600 this morning. He was brought to the ED via EMS. He states he felt like his legs gave out and fell down 6 steps, then hit his head on a door. He did experience a loss of consciousness and an episode of bladder incontinence. He believes he spent a few minutes on the ground before he was able to crawl to get help. He admits this morning he woke up with some increased left sided weakness. Home Medications Home Medications Medication Instructions Recorded Confirmed Type omeprazole 20 mg capsule,delayed 20 mg PO DAILY #90 cap 06/03/19 12/12/19 Histor y release oxcarbazepine 150 mg tablet 150 mg PO DAILY #90 tab 06/04/19 12/12/19 Rx metformin 1,000 mg tablet 1,000 mg PO BID #180 tab 06/16/19 12/12/19 Rx fluticasone propionate 50 1 spray INTRANASAL DAILY PRN #1 gm 06/19/19 12/12/19 History mcg/actuation nasal spray,suspension multivitamin 1 tab PO DAILY 06/19/19 12/12/19 History glimepiride 1 mg tablet 1 mg PO BID #60 tab 07/02/19 12/12/19 Rx aspirin 81 mg tablet,delayed 81 mg PO DAILY #90 tab 07/09/19 12/12/19 History release hydroxychloroquine 200 mg tablet 200 mg PO BID #60 tab 07/09/19 12/12/19 History loratadine 10 mg tablet 10 mg PO DAILY #90 tab 07/09/19 12/12/19 History magnesium oxide 400 mg (241.3 mg 400 mg PO DAILY tab 07/09/19 12/12/19 History magnesium) tablet montelukast 10 mg tablet 10 mg PO QPM #90 tab 07/09/19 12/12/19 History atorvastatin 40 mg tablet 40 mg PO DAILY #90 tab 08/31/19 12/12/19 Rx albuterol sulfate 90 mcg/actuation 2 puffs INHALATION Q6H PRN #18 gm 10/01/19 12/12/19 Rx aerosol inhaler ipratropium 20 mcg-albuterol 100 1 puffs INHALATION QID #1 gm 10/01/19 12/12/19 History mcg/actuation mist for inhalation prednisone 5 mg tablet 5 mg PO DAILY #90 tab 10/02/19 12/12/19 Rx metoprolol tartrate 25 mg tablet 75 mg PO BID #360 tab 11/03/19 12/12/19 Rx nitroglycerin 0.4 mg sublingual 0.4 mg SL Q5M PRN #25 tab 11/06/19 12/12/19 Rx tablet escitalopram oxalate 10 mg tablet 10 mg PO DAILY #30 tab 11/16/19 12/12/19 Rx ascorbic acid (vitamin C) 0 mg PO DAILY 12/12/19 12/12/19 History budesonide-formoterol [Symbicort] 2 puff INHALATION BID 12/12/19 12/12/19 History celecoxib [Celebrex] 200 mg PO BID 12/12/19 12/12/19 History cholecalciferol (vitamin D3) 25 mcg PO BID 12/12/19 12/12/19 History [Vitamin D3] cyanocobalamin (vitamin B-12) 1,000 mcg PO BID 12/12/19 12/12/19 History lactobacillus combination no.4 0 mmu cells PO DAILY 12/12/19 12/12/19 History [Probiotic] potassium gluconate 595 mg PO DAILY 12/12/19 12/12/19 History ropinirole 0.5 mg PO QPM 12/12/19 12/12/19 History umeclidinium [Incruse Ellipta] 1 puffs INHALATION DAILY 12/12/19 12/12/19 History Allergies Allergy/AdvReac Type Severity Reaction Status Date / Time auranofin Allergy Severe SHORTNESS Verified 12/12/19 09:45 OF BREATH benzyl alcohol Allergy Intermediate . 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 and A total of 10 systems reviewed and were otherwise negative Physical Exam Vital Signs Vital Signs - 24 hr 12/12/19 08:35 12/12/19 10:26 12/12/19 10:38 Temperature 36.8 C Temperature Source Oral Pulse Rate 87 Pulse Rate [Right Finger] 90 88 Pulse Rhythm Regular Pulse Rhythm [Right Finger] Regular Pulse Strength Normal Pulse Strength [Right Finger] Normal Respiratory Rate 20 18 22 Respiratory Effort / Characteristics Non-Labored Spontaneous Non-Labored Spontaneous Spontaneous Respiratory Depth Normal Normal Respiratory Pattern Regular Regular Blood Pressure 146/82 H Blood Pressure [Left Arm] 134/97 Blood Pressure Mean 103 Blood Pressure Mean [Left Arm] 109 Blood Pressure Position Lying Blood Pressure Position [Left Arm] Lying Pulse Oximetry 93 93 96 Oxygen Delivery Method Room Air Room Air Room Air Sepsis Recent Fever Within 48 Hours No Sepsis Action Taken by Nursing No Action Required CONSTITUTIONAL/VITAL SIGNS: Reviewed / noted above. GENERAL: Non-toxic in appearance. Mild generalized weakness. INTEGUMENTARY: Warm, dry, and [place]. HEAD: Normocephalic. EYES: without scleral icterus or trauma. ENT/OROPHARYNX: clear and moist. LYMPHADENOPATHY/NECK: Is supple without lymphadenopathy or meningismus. RESPIRATORY: Lungs clear and equal. Productive cough with escoto colored sputum. CARDIOVASCULAR: Regular rate and rhythm. CHEST: Mild tenderness to palpation of left lower ribs. GI/ABDOMEN: Soft and nontender. No organomegaly or pulsatile mass. No rebound or guarding. Normal bowel sounds. EXTREMITIES: Warm and well perfused. BACK: No CVA tenderness. NEUROLOGICAL: Intact without focal deficits. PSYCHIATRIC: normal affect. MUSCULOSKELETAL: Normally developed with good muscle tone. Course Course 914: The patient was evaluated in room B2 and a complete history and physical were performed. 1050: I reevaluated the patient. He states he feels too weak to go home. I discussed my recommendation he remain in the hospital for further evaluation and management and he is agreeable with the plan. 1056: I discussed the patients case with Dr. Dennis, [facility] Hospitalist. The patient will be further evaluated. Consultations Consultation #1: I discussed the patients case with Dr. Dennis, [facility] Hospitalist. The patient will be further evaluated. Time: 10:56 Administered Medications Discontinued Medications Albuterol (Duoneb) 3 ml NEB NOW STA Stop: 12/12/19 10:26 Last Admin: 12/12/19 10:36 Dose: 3 ml Documented by: [id number] Sodium Chloride (Nss) 500 mls @ 999 mls/hr IV .Q31M JOAO Stop: 12/12/19 10:00 Last Infusion: 12/12/19 10:46 Dose: 0 mls/hr Documented by: [id number] Admin: 12/12/19 09:42 Dose: 999 mls/hr Documented by: [id number] Medical Decision Making Differential Diagnosis Differential diagnoses include major intracranial, cervical, spinal, thoracic, abdominal, pelvic and neurologic injury. Fracture, contusion, sprain, strain, laceration, abrasions included as well. Medical Records Attestation: I reviewed the patient's medical records. Home Medications Current Medication List: was personally reviewed by me Laboratory Data Attestation: I reviewed the patient's lab results. Result diagrams: 12/12/19 09:42 12/12/19 09:42 Lab Results 12/12/19 12/12/19 12/12/19 Range/Units 09:42 09:42 09:42 WBC 13.02 H (4.8-10.8) K/uL RBC 3.83 L (4.7-6.1) M/uL Hgb 12.9 L (14.0-18.0) g/dL Hct 38.8 L (42-52) % MCV 101.3 H (80-100) fL MCH 33.7 (25-34) pg MCHC 33.2 (32-36) g/dL RDW Std Deviation 53.1 H (36.4-46.3) fL RDW Coeff of Farideh 14.5 (11.5-14.5) % Plt Count 184 (130-400) K/uL MPV 9.8 (7.4-10.4) fL Immature Gran % (Auto) 0.3 % Neut % (Auto) 75.9 % Lymph % (Auto) 13.4 % [place] % (Auto) 9.5 % Eos % (Auto) 0.8 % Baso % (Auto) 0.1 % Immature Gran # (Auto) 0.04 H (0.00-0.02) K/uL Neut # (Auto) 9.89 H (1.4-6.5) K/uL Lymph # (Auto) 1.74 (1.2-3.4) K/uL [place] # (Auto) 1.24 H (0.11-0.59) K/uL Eos # (Auto) 0.10 (0-0.5) K/uL Baso # (Auto) 0.01 (0-0.2) K/uL Sodium 137 (136-145) mmol/L Potassium 4.1 (3.5-5.1) mmol/L Chloride 104 (98-107) mmol/L Carbon Dioxide 29 (21-32) mmol/L Anion Gap 4.0 (3-11) BUN 23 H (7-18) mg/dl Creatinine 1.13 (0.6-1.4) mg/dl Est Cr Clr Drug Dosing 67.8 ml/min Est GFR ( Amer) 73.8 Est GFR (Non-Af Amer) 63.7 BUN/Creatinine Ratio 20.8 H (10-20) Glucose 99 (70-99) mg/dl Calcium 9.6 (8.5-10.1) mg/dl Magnesium Cancelled Total Bilirubin 0.6 (0.2-1) mg/dl AST 17 (15-37) U/L ALT 32 (12-78) U/L Alkaline Phosphatase 59 (45-117) U/L Troponin I (0-0.045) ng/ml Total Protein 7.5 (6.4-8.2) gm/dl Albumin 3.2 L (3.4-5.0) gm/dl Globulin 4.3 H (2.5-4.0) gm/dl Albumin/Globulin Ratio 0.7 L (0.9-2) 12/12/19 Range/Units 09:42 WBC (4.8-10.8) K/uL RBC (4.7-6.1) M/uL Hgb (14.0-18.0) g/dL Hct (42-52) % MCV (80-100) fL MCH (25-34) pg MCHC (32-36) g/dL RDW Std Deviation (36.4-46.3) fL RDW Coeff of Farideh (11.5-14.5) % Plt Count (130-400) K/uL MPV (7.4-10.4) fL Immature Gran % (Auto) % Neut % (Auto) % Lymph % (Auto) % [place] % (Auto) % Eos % (Auto) % Baso % (Auto) % Immature Gran # (Auto) (0.00-0.02) K/uL Neut # (Auto) (1.4-6.5) K/uL Lymph # (Auto) (1.2-3.4) K/uL [place] # (Auto) (0.11-0.59) K/uL Eos # (Auto) (0-0.5) K/uL Baso # (Auto) (0-0.2) K/uL Sodium (136-145) mmol/L Potassium (3.5-5.1) mmol/L Chloride (98-107) mmol/L Carbon Dioxide (21-32) mmol/L Anion Gap (3-11) BUN (7-18) mg/dl Creatinine (0.6-1.4) mg/dl Est Cr Clr Drug Dosing ml/min Est GFR ( Amer) Est GFR (Non-Af Amer) BUN/Creatinine Ratio (10-20) Glucose (70-99) mg/dl Calcium (8.5-10.1) mg/dl Magnesium 1.6 L Total Bilirubin (0.2-1) mg/dl AST (15-37) U/L ALT (12-78) U/L Alkaline Phosphatase (45-117) U/L Troponin I < 0.015 (0-0.045) ng/ml Total Protein (6.4-8.2) gm/dl Albumin (3.4-5.0) gm/dl Globulin (2.5-4.0) gm/dl Albumin/Globulin Ratio (0.9-2) Imaging Data Radiologist's Impression: Radiology results as stated below per my review and the radiologist's interpretation: CT head/brain wo con CLINICAL HISTORY: 74 years-old Male with fall. Acute head injury status post fall TECHNIQUE: Multiple axial CT images of the head were obtained without contrast. A dose lowering technique was utilized adhering to the principles of ALARA. CT DOSE: 537.48 mGy.cm COMPARISON: Head CT 08/23/2015 FINDINGS: No acute intracranial hemorrhage, midline shift, intracranial mass, hydrocephalus, territorial ischemia or abnormal extra-axial collection. Mild age-related involutional changes. Patchy white matter hypodensities suggest chronic microvascular ischemic disease. Cerebral vascular calcifications are noted. Remote lacunar infarct versus prominent perivascular space in the left cerebral hemisphere on image 11 series 2 measures 9 mm, unchanged. The calvarium is intact. Moderate mucosal thickening of the ethmoid and sphenoid sinuses. Trace right mastoid effusion. The left mastoid air cells and middle ear cavities appear clear. The soft tissues and orbits are unremarkable. IMPRESSION: No acute intracranial abnormality or calvarial fracture. ACT 112: Negative or not required by law. The above report was generated using voice recognition software. It may contain grammatical, syntax or spelling errors. Electronically signed by: Bhanu Atkinson M.D. 12/12/2019 10:03 AM XR chest 1V portable HISTORY: 74 years-old Male weakness acute weakness COMPARISON: Chest radiographs 12/08/2019 TECHNIQUE: Portable AP view of the chest FINDINGS: Cardiac silhouette is enlarged, unchanged. Mild subsegmental bibasilar atelectasis/scarring is unchanged. There is no pneumothorax, pleural effusion or overt pulmonary edema. No airspace consolidation typical for pneumonia. Degenerative changes of the shoulders and spine. IMPRESSION: No acute process. ACT 112: Negative or not required by law. The above report was generated using voice recognition software. It may contain grammatical, syntax or spelling errors. Electronically signed by: Bhanu Atkinson M.D. 12/12/2019 10:23 AM ECG Data Attestation: I personally reviewed and interpreted this ECG as follows: Indication: + other (fall) Rate (beats per minute): 86 Rhythm: + normal sinus ECG Intervals/blocks: + Normal QT-c ECG ST segments: no ST elevation ECG Findings: no PVCs Blood Pressure Blood Pressure Findings: Elevated blood pressure Blood Pressure Disposition: further management by hospitalist MDM Narrative This is a 74-year-old male who presents to the ED with a chief complaint of a fall. The patient states that he was going down the stairs and he felt that his legs gave out causing him to fall down about 6 steps. The patient complains of some head pain and left lateral chest wall pain. He also states that he hit his elbow and left knee. The patient reported positive loss of consciousness. He also had a little incontinence. His was present and did not observe any seizure activity. The patient's exam reveals some mild tenderness to palpation of the left lower lateral chest wall. There is minimal abrasions to the left knee and left elbow. The patient has a frequent cough for which she describes a escoto sputum. He states that he has had this for a couple of weeks. He has not been on antibiotics. His EKG shows a normal sinus rhythm. CT scan of the brain was negative for acute disease. Chest x-ray was negative for acute disease. White blood cell count is 13. Hemoglobin is 12.9. BUN is 23. Troponin was negative. Metabolic panel was otherwise unremarkable. The patient was given a DuoNeb treatment as well as some IV fluids 500 cc normal saline. He was given p.o. Levaquin. The patient feels too weak to go home. He feels that he will fall again. I spoke with the hospitalist, who will see the patient for further inpatient evaluation and care. Impression & Plan Generalized weakness, Fall, Contusion of left chest wall, Acute bronchitis, Dehydration Discharge Plan Visit Data Chief Complaint: Fall Stated Complaint: fall/ head & back pain ED Provider: Butch Haskins ED Midlevel Provider: David Martinez Discharge Problem: Generalized weakness, Fall, Contusion of left chest wall, Acute bronchitis, Dehydration Patient Disposition: Being Evaluated by Hospitalist Forms Stand Alone Forms: My [facility] [employer] Prescriptions Prescriptions: No Action oxcarbazepine 150 mg tablet 150 mg PO DAILY Qty: 90 RF: 3 metformin 1,000 mg tablet 1,000 mg PO BID Qty: 180 RF: 1 glimepiride 1 mg tablet 1 mg PO BID Qty: 60 RF: 5 atorvastatin 40 mg tablet 40 mg PO DAILY Qty: 90 RF: 1 metoprolol tartrate 25 mg tablet 75 mg PO BID Qty: 360 RF: 1 nitroglycerin 0.4 mg tablet, sublingual 0.4 mg SL Q5M PRN (Reason: chest pain) Qty: 25 RF: 0 escitalopram oxalate 10 mg tablet 10 mg PO DAILY Qty: 30 RF: 5 omeprazole 20 mg capsule,delayed release(DR/EC) 20 mg PO DAILY Qty: 90 RF: 0 aspirin 81 mg tablet,delayed release (DR/EC) 81 mg PO DAILY Qty: 90 RF: 0 loratadine 10 mg tablet 10 mg PO DAILY Qty: 90 RF: 0 magnesium oxide 400 mg (241.3 mg magnesium) tablet 400 mg PO DAILY RF: 0 montelukast 10 mg tablet 10 mg PO QPM Qty: 90 RF: 0 hydroxychloroquine 200 mg tablet 200 mg PO BID Qty: 60 RF: 0 multivitamin [Multiple Vitamins] tablet 1 tab PO DAILY RF: 0 fluticasone propionate 50 mcg/actuation spray,suspension 1 spray intranasal DAILY PRN (Reason: Nasal Congestion) Qty: 1 RF: 0 Combivent Respimat 20-100 mcg/actuation mist 1 puffs inhalation QID Qty: 1 RF: 0 prednisone 5 mg tablet 5 mg PO DAILY Qty: 90 RF: 1 albuterol sulfate 90 mcg/actuation HFA aerosol inhaler 2 puffs inhalation Q6H PRN (Reason: shortness of breath or wheezing) Qty: 18 RF: 5 celecoxib [Celebrex] 200 mg Capsule 200 mg PO BID RF: 0 cyanocobalamin (vitamin B-12) 1,000 mcg Tablet 1,000 mcg PO BID RF: 0 ascorbic acid (vitamin C) 100 mg Tablet 0 mg PO DAILY RF: 0 cholecalciferol (vitamin D3) [Vitamin D3] 25 mcg (1,000 unit) Capsule 25 mcg PO BID RF: 0 Symbicort 160-4.5 mcg/actuation Hfa Aerosol Inhaler 2 puff INHALATION BID RF: 0 potassium gluconate 595 mg (99 mg) Tablet 595 mg PO DAILY RF: 0 Probiotic 3 billion cell Capsule 0 mmu cells PO DAILY RF: 0 ropinirole 0.5 mg tablet 0.5 mg PO QPM RF: 0 Incruse Ellipta 62.5 mcg/actuation blister with device 1 puffs inhalation DAILY RF: 0 Referrals Referrals: Oscar Sullivan DO [Primary Care Provider] - The scribe's documentation has been prepared under my direction and personally reviewed by me in its entirety. I confirm that the note above accurately reflec ts all work, treatment, procedures, and medical decision making performed by me.
--- NOTE | 2019-12-12 11:27 | Electrocardiogram Report ---
Test Reason : Blood Pressure : / mmHG Vent. Rate : 086 BPM Atrial Rate : 086 BPM P-R Int : 118 ms QRS Dur : 076 ms QT Int : 402 ms P-R-T Axes : 023 045 095 degrees QTc Int : 481 ms Normal sinus rhythm Nonspecific ST abnormality Prolonged QT Abnormal ECG When compared with ECG of 16-SEP-2017 14:06, Nonspecific ST abnormality is new Confirmed by Erick Newton ([id number]) on 12/12/2019 11:26:38 AM Referred By: REFERRED SELF Confirmed By:Erick Newton
--- NOTE | 2019-12-12 11:40 | History & Physical Report ---
Date of Service December 12, 2019 Assessment & Plan (1) Loss of consciousness associated with intracranial injury: Patient did have loss of consciousness after fall. CT scan of the brain was negative and the patient is now neurologically intact. Can continue to monitor over the next 24 hours (2) COPD exacerbation: Patient relates a history of COPD and has active wheezing along with cough. Patient was given a dose of Levaquin in the emergency room, will change his over to doxycycline for potential medication interaction. Will start p.o. prednisone at 40 mg twice daily, hopefully can titrate rapidly. O2 support as needed. I will order 4 times daily duo nebs along with albuterol as needed. (3) Diabetes mellitus: Patient is on glimepiride and metformin, will continue both these. Check hemoglobin A1c. We will start a diabetic diet along with sliding scale insulin. (4) Fall: Worsening generalized weakness is a concern, PT/OT evaluation. Some of th is may be secondary to acute illness. Prior to acute episode, tells me patient was ambulating without assistive device. Patient has some mild left rib pain which is likely contusion considering negative chest x-ray. Can try tramadol for pain as needed. Consider CT scan if pain persists to rule out occult fracture. (5) Obstructive sleep apnea: Continue CPAP nightly as per outpatient orders. History of Present Illness Primary Care Provider: Oscar Sullivan DO This is a 74-year-old male with past medical history of diabetes and COPD that presents today status post fall. Patient is accompanied by multiple family members including his , all give a good history. Patient tells me that he has been getting some progressive weakness at home. The does state that the patient has fallen at home in the past but without any serious injury. He did have a recent URI in September 2019. He did make some recovery from that but continued to have a dry cough. Over the past 3-4 days the cough worsened became more productive, with escoto or clear sputum. Patient had a dry cough consistently throughout the interview. The noted that the patient was having difficulty ambulating secondary to weakness lower extremities and that "his legs give out frequently". At one point 2 nights ago, he fell out of bed and finished to be on the floor because he could not get up. Earlier today, the patient was ambulating down the stairs when his legs low strength and he fell down 5-6 stairs. He struck the left side of his head on a door hinge and had a brief loss of consciousness. He recovered quickly over a few seconds he was able to crawl to the bathroom. At that point the called 911 and the patient was brought to the emergency room. The patient was evaluated emergency room and was found not to have any significant injury. The patient is complaining of some chest wall pain in his left ribs. He was given Levaquin in the emergency room with the intention to discharge him home with the patient states that he cannot walk secondary to his weakness. Therefore, he will be brought in the hospital as observation for further treatment. At the time my evaluation, the patient was not having any significant respiratory distress but he did have an ongoing dry cough. Vitals appear to be stable. Of note, the patient does not use home oxygen but he does use CPAP at night which he tells me he is compliant with. Allergies Allergy/AdvReac Type Severity Reaction Status Date / Time auranofin Allergy Severe SHORTNESS Verified 12/12/19 09:45 OF BREATH benzyl alcohol Allergy Intermediate . Verified 12/12/19 09:45 Gold Salts Allergy Unknown HIVES TO Verified 12/12/19 09:45 GOLD SHOTS Home Medications Home Medications Medication Instructions Recorded Confirmed Type omeprazole 20 mg capsule,delayed 20 mg PO DAILY #90 cap 06/03/19 12/12/19 History release oxcarbazepine 150 mg tablet 150 mg PO DAILY #90 tab 06/04/19 12/12/19 Rx metformin 1,000 mg tablet 1,000 mg PO BID #180 tab 06/16/19 12/12/19 Rx fluticasone propionate 50 1 spray INTRANASAL DAILY PRN #1 gm 06/19/19 12/12/19 History mcg/actuation nasal spray,suspension multivitamin 1 tab PO DAILY 06/19/19 12/12/19 History glimepiride 1 mg tablet 1 mg PO BID #60 tab 07/02/19 12/12/19 Rx aspirin 81 mg tablet,delayed 81 mg PO DAILY #90 tab 07/09/19 12/12/19 History release hydroxychloroquine 200 mg tablet 200 mg PO BID #60 tab 07/09/19 12/12/19 History loratadine 10 mg tablet 10 mg PO DAILY #90 tab 07/09/19 12/12/19 History magnesium oxide 400 mg (241.3 mg 400 mg PO DAILY tab 07/09/19 12/12/19 History magnesium) tablet montelukast 10 mg tablet 10 mg PO QPM #90 tab 07/09/19 12/12/19 History atorvastatin 40 mg tablet 40 mg PO DAILY #90 tab 08/31/19 12/12/19 Rx albuterol sulfate 90 mcg/actuation 2 puffs INHALATION Q6H PRN #18 gm 10/01/19 12/12/19 Rx aerosol inhaler ipratropium 20 mcg-albuterol 100 1 puffs INHALATION QID #1 gm 10/01/19 12/12/19 History mcg/actuation mist for inhalation prednisone 5 mg tablet 5 mg PO DAILY #90 tab 10/02/19 12/12/19 Rx metoprolol tartrate 25 mg tablet 75 mg PO BID #360 tab 11/03/19 12/12/19 Rx nitroglycerin 0.4 mg sublingual 0.4 mg SL Q5M PRN #25 tab 11/06/19 12/12/19 Rx tablet escitalopram oxalate 10 mg tablet 10 mg PO DAILY #30 tab 11/16/19 12/12/19 Rx ascorbic acid (vitamin C) 0 mg PO DAILY 12/12/19 12/12/19 History budesonide-formoterol [Symbicort] 2 puff INHALATION BID 12/12/19 12/12/19 His tory celecoxib [Celebrex] 200 mg PO BID 12/12/19 12/12/19 History cholecalciferol (vitamin D3) 25 mcg PO BID 12/12/19 12/12/19 History [Vitamin D3] cyanocobalamin (vitamin B-12) 1,000 mcg PO BID 12/12/19 12/12/19 History lactobacillus combination no.4 0 mmu cells PO DAILY 12/12/19 12/12/19 History [Probiotic] potassium gluconate 595 mg PO DAILY 12/12/19 12/12/19 History ropinirole 0.5 mg PO QPM 12/12/19 12/12/19 History umeclidinium [Incruse Ellipta] 1 puffs INHALATION DAILY 12/12/19 12/12/19 History Past Med/Surg History Family History Mother Diabetes Coronary heart disease Brother Hypertension Sister Hypertension Father Hypertension Social History Preferred Language: Estonian Communication Ability: Effective Director Records Management Required: No Beliefs That Will Affect Care: None marital status: Current Living Situation: Spouse Other Information That Helps Us Care for You: No Feels Safe at Home: Yes Safety Concerns: Feels Safe At This Time Smoking Status: Former smoker Number of Years Since Quit: 43 ; Hx Alcohol Use: No Hx Substance Use: No Review of Systems Constitutional: + fever (low grade temp to 99F); no chills, no weakness, no weight loss and no weight gain Eyes: as per Subjective / HPI Ear, Nose, Mouth, Throat: no nasal congestion and no post nasal drip Respiratory: + cough, + dyspnea, + pain with cough, + sputum production and + wheezing; no chest congestion and no dyspnea on exertion Cardiovascular: no chest pain, no orthopnea, no palpitations, no lightheadedness and no edema Gastrointestinal: no abdominal pain, no nausea, no vomiting, no constipation and no diarrhea/loose stools Musculoskeletal: + muscle weakness and + body aches; no back pain, no neck pain, no joint pain and no stiffness Integumentary: no rash Neurologic: + unsteadiness, + falls and + generalized weakness; no gait abnormality Physical Exam Constitutional: cooperative; no acute distress ongoing cough Neck: trachea midline, no thyromegaly Respiratory: normal respiratory effort Auscultation: + rhonchi and + wheezes (high pitched expiratory wheeze, exam limited by coughing); no crackles and no rales Cardiovascular: Rate/Rhythm: regular rate and regular rhythm Heart Sounds: normal S1 and normal S2 Gastrointestinal (Abdomen): Inspection/Auscultation: abdomen normal to inspection Percussion/Palpation: abdomen soft; abdomen nontender, no guarding, abdomen not rigid and no hepatosplenomegaly Skin: no rashes, warm and dry Neurologic: PERRL, EOMI, accommodation nl, no face palsy, no dysarthria Results & Data Vital Signs (Past 12 Hours) Vital Signs Temp Pulse Pulse Resp BP BP Pulse Ox 12/12/19 10:38 88 22 96 12/12/19 10:26 90 18 134/97 93 12/12/19 08:35 36.8 C 87 20 146/82 H 93 Diagnostic Findings XR chest 1V portable HISTORY: 74 years-old Male weakness acute weakness COMPARISON: Chest radiographs 12/08/2019 TECHNIQUE: Portable AP view of the chest FINDINGS: Cardiac silhouette is enlarged, unchanged. Mild subsegmental bibasilar atelectasis/scarring is unchanged. There is no pneumothorax, pleural effusion or overt pulmonary edema. No airspace consolidation typical for pneumonia. Degenerative changes of the shoulders and spine. IMPRESSION: No acute process. --- CT head/brain wo con CLINICAL HISTORY: 74 years-old Male with fall. Acute head injury status post fall TECHNIQUE: Multiple axial CT images of the head were obtained without contrast. A dose lowering technique was utilized adhering to the principles of ALARA. CT DOSE: 537.48 mGy.cm COMPARISON: Head CT 08/23/2015 FINDINGS: No acute intracranial hemorrhage, midline shift, intracranial mass, hydrocephalus, territorial ischemia or abnormal extra-axial collection. Mild age-related involutional changes. Patchy white matter hypodensities suggest chronic microvascular ischemic disease. Cerebral vascular calcifications are noted. Remote lacunar infarct versus prominent perivascular space in the left cerebral hemisphere on image 11 series 2 measures 9 mm, unchanged. The calvarium is intact. Moderate mucosal thickening of the ethmoid and sphenoid sinuses. Trace right mastoid effusion. The left mastoid air cells and middle ear cavities appear clear. The soft tissues and orbits are unremarkable. IMPRESSION: No acute intracranial abnormality or calvarial fracture. PG Care Time/CCT Total # of Minutes Spent Total Time Spent with Patient: Total time spent is greater than 50% in coordination of care (as documented) at patient's floor/unit and/or counseling patient:
[2019-12-12] MEDS ORDERED: TRAMADOL HCL 50 MG TABLET PO STA (11:51)
[2019-12-12] MEDS ORDERED: TRAMADOL HCL 50 MG TABLET ONE (12:01)
[2019-12-12] MEDS ORDERED: DC ALL PREVIOUSLY ORDERED DIABETES MEDS ONE (13:44)
[2019-12-12] MEDS ORDERED: NITROGLYCERIN SL 0.4 MG/TAB TAB SL PRN (13:44)
[2019-12-12] MEDS ORDERED: CARBOHYDRATES FOR HYPOGLYCEMIA PO PRN (13:44)
[2019-12-12] MEDS ORDERED: GLUCOSE 40% GEL 15 GM TUBE PO PRN (13:44)
[2019-12-12] MEDS ORDERED: FLUTICASONE PROPIONATE NA SPR 16 GM BTL PRN (13:44)
[2019-12-12] MEDS ORDERED: ALBUT/IPRATROP 3MG/0.5MG NEB 3 ML VIAL NEB PRN (13:44)
[2019-12-12] MEDS ORDERED: DEXTROSE 50% 50 ML SYRINGE IV PRN (13:44)
[2019-12-12] MEDS ORDERED: GLUCAGON FOR INJ 1 MG VIAL SQ PRN (13:44)
[2019-12-12] MEDS ORDERED: GLUCOSE 10 TABS/TUBE PO PRN (13:44)
[2019-12-12] MEDS ORDERED: ACETAMINOPHEN 325 MG TAB PO PRN (13:44)
[2019-12-12] MEDS: ALBUT/IPRATROP 3MG/0.5MG NEB 3 ML VIAL NEB SCH ×2 (15:30→18:50)
[2019-12-12] MEDS: predniSONE 20 MG TAB PO SCH ×2 (15:48→21:14)
[2019-12-12] MEDS: TRAMADOL HCL 50 MG TABLET PO PRN ×2 (15:58→21:27)
[2019-12-12] MEDS: INSULIN ASPART 100 UNITS/ML 3 ML PEN SC SCH ×2 (17:57→20:46)
[2019-12-12] MEDS: ROPINIROLE HCL 0.25 MG TABLET PO SCH (20:38)
[2019-12-12] MEDS: CeleBREX 200 MG CAP PO SCH (20:38)
[2019-12-12] MEDS: MONTELUKAST SODIUM 10 MG TABLET PO SCH (20:39)
[2019-12-12] MEDS: CYANOCOBALAMIN 500 MCG TABLET (VITAMIN B-12) PO SCH (20:40)
[2019-12-12] MEDS: HYDROXYCHLOROQUINE SULFATE 200 MG TAB PO SCH (20:41)
[2019-12-12] MEDS: METOPROLOL TARTRATE 25 MG TAB PO SCH (20:42)
[2019-12-12] MEDS: DOXYCYCLINE HYCLATE 100 MG CAP PO SCH (20:43)
[2019-12-12] MEDS: guaiFENesin 600 MG TABCR PO SCH (20:43)
[2019-12-12] MEDS: CHOLECALCIFEROL 1,000 UNITS 25 MCG TAB PO SCH (20:43)
[2019-12-12] MEDS: ENOXAPARIN INJ 40 MG/0.4 ML SYR SQ SCH (20:44)
[2019-12-12] MEDS ORDERED: GLIMEPIRIDE 2 MG TAB PO SCH (21:00)
[2019-12-12] MEDS ORDERED: METFORMIN HCL 500 MG TAB PO SCH (21:00)
[2019-12-13 04:54] LABS: Appearance Urine Clear (Clear); Bilirubin Urine Negative (Negative); Blood Urine Negative (Negative); Color Urine Yellow; Glucose Urine UA 2+ (Negative); Ketones Urine Negative (Negative); Leukocyte Esterase Urine Negative (Negative); Nitrite Urine Negative (Negative); Protein Urine Negative (Negative); Urobilinogen Urine Negative (Negative); pH Urine 5.5 (4.5-7.5)
[2019-12-13 06:13] LABS: Hematocrit (blood only) 36.1 % (42-52); Immature Granulocytes # (auto) 0.03 K/uL (0.00-0.02); Immature Granulocytes % (auto) 0.3 %; Lymphocytes # (auto) 0.77 K/uL (1.2-3.4); Lymphocytes % (auto) 8.1 %; Mean Corpuscular Hemoglobin 33.6 pg (25-34); Mean Corpuscular Hgb Conc 33.2 g/dL (32-36); Mean Corpuscular Volume 101.1 fL (80-100); Mean Platelet Volume 10.2 fL (7.4-10.4); Monocytes # (auto) 0.43 K/uL (0.11-0.59); Monocytes % (auto) 4.5 %; Neutrophils # (auto) 8.31 K/uL (1.4-6.5); Neutrophils % (auto) 87.1 %; Platelet Count 173 K/uL (130-400); RDW Coefficient of Variation 14.4 % (11.5-14.5); RDW Standard Deviation 53.5 fL (36.4-46.3); Red Blood Count 3.57 M/uL (4.7-6.1); White Blood Count 9.54 K/uL (4.8-10.8)
[2019-12-13 06:43] LABS: BUN Creatinine Ratio 21.4 (10-20); Calcium 9.2 mg/dl (8.5-10.1); Creatinine Clr Calc Pharmacy 67.3 ml/min; Magnesium 1.9 mg/dl (1.8-2.4); Potassium 4.8 mmol/L (3.5-5.1)
[2019-12-13] MEDS: ALBUT/IPRATROP 3MG/0.5MG NEB 3 ML VIAL NEB SCH ×4 (07:35→19:04)
[2019-12-13] MEDS ORDERED: NON-FORMULARY MEDICATION (Potassium Gluconate 595 MG) PO SCH (09:00)
[2019-12-13] MEDS: METOPROLOL TARTRATE 25 MG TAB PO SCH ×2 (09:05→20:55)
[2019-12-13] MEDS: predniSONE 20 MG TAB PO SCH ×2 (09:06→20:54)
[2019-12-13] MEDS: OXcarbazepine 150 MG TABLET PO SCH (09:06)
[2019-12-13] MEDS: HYDROXYCHLOROQUINE SULFATE 200 MG TAB PO SCH ×2 (09:06→20:55)
[2019-12-13] MEDS: ATORVASTATIN 40 MG TAB PO SCH (09:06)
[2019-12-13] MEDS: ESCITALOPRAM OXALATE 10 MG TAB PO SCH (09:06)
[2019-12-13] MEDS: CYANOCOBALAMIN 500 MCG TABLET (VITAMIN B-12) PO SCH ×2 (09:07→20:56)
[2019-12-13] MEDS: LORATADINE 10 MG TAB PO SCH (09:07)
[2019-12-13] MEDS: CeleBREX 200 MG CAP PO SCH ×2 (09:07→20:57)
[2019-12-13] MEDS: ASPIRIN 81 MG ECTAB PO SCH (09:07)
[2019-12-13] MEDS: DOXYCYCLINE HYCLATE 100 MG CAP PO SCH ×2 (09:07→20:56)
[2019-12-13] MEDS: CHOLECALCIFEROL 1,000 UNITS 25 MCG TAB PO SCH ×2 (09:07→20:54)
[2019-12-13] MEDS: guaiFENesin 600 MG TABCR PO SCH ×2 (09:08→20:54)
[2019-12-13] MEDS: UMECLIDINIUM BROMIDE 62.5MCG/BLISTER 7 PUFFS/INHALER INH SCH (09:08)
[2019-12-13] MEDS: PANTOprazole 40 MG TAB PO SCH (09:08)
[2019-12-13] MEDS: INSULIN ASPART 100 UNITS/ML 3 ML PEN SC SCH ×4 (09:10→20:59)
[2019-12-13] MEDS: MULTIVITAMIN TAB PO SCH (12:35)
[2019-12-13] MEDS: MAGNESIUM OXIDE 400 MG TAB PO SCH (12:35)
[2019-12-13] MEDS: LIDOCAINE 5% 1 PATCH TD SCH (16:36)
--- NOTE | 2019-12-13 19:13 | Hospitalist Progress Note ---
Date of Service December 13, 2019 Assessment & Plan (1) Fall: - Reports likely mechanical fall resulting in falling down 5-6 steps and suspected LOC from striking head. States he crawled to the bathroom. Denies H/O symptoms prior to fall but states it was rapid but does feel like it was his l egs. - He has been feeling under the weather and possibly some dehydration. He does report intermittent dizziness in the past but never syncope with this - Head CT - negative for acute processes -- No neurological deficits appreciated - Echo does reveal moderate to severe - had a long conversation with patient and that this may be contributing especially if he has been feeling unwell and maybe a little dry -- Appears he chronically has had issues with SOB on exertion and states he will go pale and diaphoretic after about 20 minutes of slow walking around stores and such - this could be his underlying lung issues vs his aortic valve - Will perform 2-step prior to D/C to see if maybe he simply needs supplemental O2 with ambulation - Discussed F/U with cardiology to consider referral for possibly TAVR? follows with [facility] Cardiology (2) COPD exacerbation: - Possibly mild exacerbation - given wheezing and change in sputum production -- Mild blood-tinged sputum and will monitor - consider CT if ongoing - Continue Doxycycline and Prednisone with taper - is on chronic steroids - Continue duonebs; Mucinex BID - Follows with [facility] Pulmonology (3) Diabetes mellitus: - Continue SSI - and monitor BSG (4) Obstructive sleep apnea: Continue CPAP nightly as per outpatient orders Disposition: Perform 2-step; continue treatment for exacerbation; plan with home with services; possible D/C tomorrow Supervising Physician Co-Signing Physician Notes Attending Attestation: Chart reviewed in detail, care plan d/w VARSHA Lorenz. I agree w/ the jensen components of her documentation. 74yo male with steroid-dependent COPD. Also w/ h/o moderate-severe aortic stenosis on prior echo. Now w/ COPD exacerbation in setting of fall/loss of consciousness. On prednisone 40mg BID for COPD flare. CT head at admission noted to be neg for acute process. Repeat echo pending to re-eval aortic valve given his fall/loss of consciousness - syncope? Consider placing patient on tele while here to r/o arrhythmia. Mild hyponatremia - some of which is due to high glucose. Repeat bmp AM. Vitals remain stable. Pt noted to be on plaquenil -- reason?? Need to investigate this. Erich Palmer MD Subjective Reports feeling better today compared to yesterday. Continues to have L rib pain but is slightly better. Ambulating better. Wheezing on exam and continues to cough. No new symptoms. Tolerating diet. Review of Systems Constitutional: + fatigue; no fever and no chills Eyes: no worsening vision Ear, Nose, Mouth, Throat: no nasal congestion and no sore throat Respiratory: + cough, + dyspnea on exertion, + sputum production and + wheezing Cardiovascular: no chest pain, no palpitations, no lightheadedness and no edema Gastrointestinal: no abdominal pain, no nausea, no vomiting, no constipation and no diarrhea/loose stools Genitourinary: no dysuria Musculoskeletal: no back pain L sided rib pain Integumentary: no rash Neurologic: + falls; no unsteadiness, no tingling and no numbness Physical Exam Constitutional: WD/WN, vitals as above no acute distress and not ill appearing Eyes: + anicteric sclerae ENMT: Ears: no hearing impairment Neck: trachea midline Respiratory: normal respiratory effort Auscultation: + wheezes (prolonged expiratory phase with wheeze) intermittent course sounds which clears with coughing Cardiovascular: Rate/Rhythm: regular rate and regular rhythm Vessels: no JVD Chest (Breasts): Chest: normal inspection of chest Gastrointestinal (Abdomen): Inspection/Auscultation: + abdomen distended (reports baseline); + abnormal bowel sounds Percussion/Palpation: abdomen soft; abdomen nontender Musculoskeletal: Head/Neck/Chest: normocephalic and head atraumatic Skin: no rashes, warm and dry Neurologic: moves all extremities Psychiatric: A+Ox3, euthymic affect Results & Data Vital Signs (Past 12 Hours) Vital Signs Temp Pulse Resp BP Pulse Ox 12/13/19 15:09 88 18 93 12/13/19 15:04 36.4 C L 69 20 125/66 95 12/13/19 07:35 67 18 95 12/13/19 07:11 36.5 C 67 20 132/76 93 PG Care Time/CCT Total # of Minutes Spent Total Time Spent with Patient: Total time spent is greater than 50% in coordination of care (as documented) at patient's floor/unit and/or counseling patient:
[2019-12-13] MEDS: MONTELUKAST SODIUM 10 MG TABLET PO SCH (20:55)
[2019-12-13] MEDS: ROPINIROLE HCL 0.25 MG TABLET PO SCH (20:56)
[2019-12-13] MEDS: ENOXAPARIN INJ 40 MG/0.4 ML SYR SQ SCH (20:57)
[2019-12-13] MEDS ORDERED: guaiFENesin 600 MG TABCR PO SCH (21:00)
[2019-12-13] MEDS ORDERED: NEOMYCIN/POLYMYX/BACITR OINT 15 GM TUBE EXT PRN (21:41)
[2019-12-14] MEDS: ALBUT/IPRATROP 3MG/0.5MG NEB 3 ML VIAL NEB SCH ×4 (06:54→19:14)
[2019-12-14 06:57] LABS: Estimated Average Glucose 169 mg/dl; Hemoglobin A1C 7.5 % (4.5-5.6)
[2019-12-14] MEDS: predniSONE 20 MG TAB PO SCH ×2 (07:54→20:28)
[2019-12-14] MEDS: CeleBREX 200 MG CAP PO SCH ×2 (07:54→20:24)
[2019-12-14] MEDS: PANTOprazole 40 MG TAB PO SCH (07:54)
[2019-12-14] MEDS: METOPROLOL TARTRATE 25 MG TAB PO SCH ×2 (07:54→20:24)
[2019-12-14] MEDS: DOXYCYCLINE HYCLATE 100 MG CAP PO SCH ×2 (07:55→20:31)
[2019-12-14] MEDS: CHOLECALCIFEROL 1,000 UNITS 25 MCG TAB PO SCH ×2 (07:55→20:32)
[2019-12-14] MEDS: ATORVASTATIN 40 MG TAB PO SCH (07:55)
[2019-12-14] MEDS: HYDROXYCHLOROQUINE SULFATE 200 MG TAB PO SCH ×2 (07:55→20:27)
[2019-12-14] MEDS: guaiFENesin 600 MG TABCR PO SCH ×2 (07:55→20:26)
[2019-12-14] MEDS: ASPIRIN 81 MG ECTAB PO SCH (07:56)
[2019-12-14] MEDS: CYANOCOBALAMIN 500 MCG TABLET (VITAMIN B-12) PO SCH ×2 (07:56→20:31)
[2019-12-14] MEDS: MAGNESIUM OXIDE 400 MG TAB PO SCH (07:56)
[2019-12-14] MEDS: UMECLIDINIUM BROMIDE 62.5MCG/BLISTER 7 PUFFS/INHALER INH SCH (07:56)
[2019-12-14] MEDS: LORATADINE 10 MG TAB PO SCH (07:56)
[2019-12-14] MEDS: ESCITALOPRAM OXALATE 10 MG TAB PO SCH (07:56)
[2019-12-14] MEDS: LIDOCAINE 5% 1 PATCH TD SCH (07:57)
[2019-12-14] MEDS: OXcarbazepine 150 MG TABLET PO SCH (07:58)
[2019-12-14] MEDS: INSULIN ASPART 100 UNITS/ML 3 ML PEN SC SCH ×4 (09:13→20:36)
[2019-12-14] MEDS: MULTIVITAMIN TAB PO SCH (12:40)
--- NOTE | 2019-12-14 17:55 | Hospitalist Progress Note ---
Date of Service December 14, 2019 Assessment & Plan (1) Fall: - Reports likely mechanical fall resulting in falling down 5-6 steps and suspected LOC from striking head. States he crawled to the bathroom. Denies H/O symptoms prior to fall but states it was rapid but does feel like it was his l egs. - He has been feeling under the weather and possibly some dehydration. He does report intermittent dizziness in the past but never syncope - Head CT - negative for acute processes -- No neurological deficits appreciated - Echo (Dec 2018) does reveal moderate to severe - had a long conversation with patient and that this may be contributing especially if he has been feeling unwell and maybe a little dry -- Appears he chronically has had issues with SOB on exertion and states he will go pale and diaphoretic after about 20 minutes of slow walking around stores and such - this could be his underlying lung issues vs his aortic valve -- Discussed again and patient reveals that he also gets a burning sensation in the chest with walking and even felt this when doing his 2 step today; he states this is chronic and never occurs at rest - Do wonder if his leg weakness and falls could be from his ? What he is describing may be angina and is not acute - he states he has used NTG in the past once and it did resolve it; may benefit from long-acting nitrate? - Consult cardiology - question if further testing should be performed? maybe referral for TAVR? (2) COPD exacerbation: - IMPROVING; Possibly mild exacerbation - given wheezing and change in sputum production -- Is continuing to have some mild blood-tinge sputum/hemoptysis and will monitor - may consider CTA tomorrow -- Unlikely PE given lack of tachycardia, hypoxia, respiratory distress - Continue Doxycycline and Prednisone with taper - is on chronic steroids daily - Continue Duonebs; Mucinex BID - Follows with [facility] Pulmonology (3) Diabetes mellitus: - Continue SSI - and monitor BSG (4) Obstructive sleep apnea: Continue CPAP nightly as per outpatient orders Disposition: Does not need O2 per 2-step; continue treatment for exacerbation; appreciate cardiology input; home tomorrow if not further testing/findings found Subjective Reports ongoing L sided rib pain. States it is not worse but not much better. Lidocaine patch ordered and Tramadol PRN however no dose taken since 12/12. Remains on RA and lungs sound improved. 2 step did not suggest needing O2 with ambulation. He did state he had some burning chest discomfort when doing the two step. Nurse notes he was pretty SOB after walking. Patient and both state that when he ambulates in the stores she gets this discomfort and has to rest. states he sometimes looks pale and sweaty. Patient reports this never occurs at rest and only with exertion. Has never had a catheterization and had a stress test a while ago. Review of Systems Constitutional: no fever and no chills Respiratory: + cough, + dyspnea, + dyspnea on exertion and + hemoptysis; no pain on inspiration Cardiovascular: + chest pain with activity; no chest pain at rest, no radiating jaw, neck or arm pain, no lightheadedness, no syncope and no edema Gastrointestinal: no abdominal pain, no nausea, no vomiting, no constipation and no diarrhea/loose stools Genitourinary: no dysuria Musculoskeletal: L sided rib pain Integumentary: no rash Neurologic: + unsteadiness (intermittent) and + falls Physical Exam Constitutional: WD/WN, vitals as above Eyes: + anicteric sclerae ENMT: Ears: no hearing impairment Neck: trachea midline Respiratory: normal respiratory effort Auscultation: + diminished lung sounds (bases b/l) and + wheezes (only in R lower lung - prolonged expiratory wheeze) Cardiovascular: RRR, no murmur, no edema Gastrointestinal (Abdomen): Inspection/Auscultation: + abdomen distended (baseline) and normal bowel sounds Percussion/Palpation: abdomen soft; abdomen nontender Musculoskeletal: Head/Neck/Chest: normocephalic and head atraumatic Skin: no rashes, warm and dry Neurologic: moves all extremities Psychiatric: A+Ox3, euthymic affect Results & Data Vital Signs (Past 12 Hours) Vital Signs Temp Pulse Pulse Pulse Pulse Resp Resp 12/14/19 15:18 62 14 12/14/19 15:00 36.7 C 79 18 12/14/19 11:16 75 18 12/14/19 09:18 80 75 79 18 12/14/19 07:00 36.7 C 73 16 12/14/19 06:54 68 16 Resp Resp BP Pulse Ox Pulse Ox Pulse Ox Pulse Ox 12/14/19 15:18 96 12/14/19 15:00 145/76 H 97 12/14/19 11:16 93 12/14/19 09:18 18 18 95 98 94 12/14/19 07:00 132/77 94 12/14/19 06:54 94 PG Care Time/CCT Total # of Minutes Spent Total Time Spent with Patient: Total time spent is greater than 50% in coordination of care (as documented) at patient's floor/unit and/or counseling patient:
--- NOTE | 2019-12-14 18:50 | Cardiology Consultation ---
Date of Consultation December 14, 2019 Assessment & Plan (1) Aortic stenosis: (2) Chest pain, exertional: (3) [place] (dyspnea on exertion): (4) Essential hypertension: ASSESSMENT/PLAN: 1. Exertional chest pain: Chronic issue with progressive symptoms over time. This was not part of his presentation but is concerning for possible angina either related to underlying coronary disease, or possibly his aortic stenosis. COPD may also be playing a role. We discussed the potential for coronary artery disease or his valve as the etiology. Recommend titrating beta-victoriano. Will initially increase metoprolol tartrate to 100 mg twice daily and reassess. We also discussed the potential for cardiac catheterization. Risks and benefits were discussed with he and his . There is no urgent indication. Would be cautious with nitrates given aortic valve stenosis. Repeat echo. 2. Aortic stenosis: Moderate to severe 1 year ago. Repeat echocardiogram given progressive symptoms. We discussed the potential need for aortic valve replacement at some point, which has already been addressed by Dr. Dillon in the outpatient setting. 3. Dyspnea with exertion: Likely multifactorial, including COPD, with possible contributors such as CAD and aortic stenosis. He appears euvolemic on exam. He is asymptomatic at rest. 4. Hypertension: Blood pressure has been normotensive to hypertensive. Titrating beta-victoriano as above. 5. Fall: He denies syncope as the cause of his fall but did lose consciousness briefly after striking his head. 6. Disposition: Cardiology will continue to follow. Patient care discussed with Ms. Lorenz of the primary hospitalist service. On discharge, he should follow up with his primary shrimper, Dr. Dillon. Thank you for allowing me to participate in the care of your patient. Please call for any other questions or concerns. Sincerely, Tonio Haines M.D. History of Present Illness Reason for Consultation: Exertional CP Requesting Physician: Ms Lorenz Attending Physician: Hugh Jennings DO History of Present Illness Mr. Arevalo is a pleasant 74-year-old gentleman with a history significant for Alzheimer's, aortic stenosis, hypertension, dyslipidemia, and mild CKD. His primary shrimper is Dr. Dillon. He was admitted to [facility] on 12/12/2019 after falling down the stairs. He does have mild memory issues according to his who was present at the bedside and helps provide history. While walking down the stairs, his legs reportedly gave out and he struck his head while falling. He is adamant that he remain conscious until he struck his head. His believes this to be true as well. She states that when she found him he was fluttering his eyes but waking up. The loss of consciousness was thought to be only a few seconds. He otherwise has not had any loss of consciousness and denies syncope. He denies near- syncope, lightheadedness, chest pain at rest, edema, or bleeding such as melena, hematochezia, or hematuria. He had been having shaking chills and low-grade fevers a few days ago. He also has been having a productive cough with some occasional blood-tinged sputum but no true hemoptysis. He was more short of breath, even at rest on presentation but this has improved with treatment for COPD exacerbation. He has had chronic substernal chest tightness with exertion. This has been discussed in the past with Dr. Dillon and given moderate aortic stenosis in the past, cardiac catheterization had been discussed but apparently declined at that time. His states that they have been discussing it for quite some time. Over the past 3 or 4 months, his states that he has been having exertional chest discomfort on a more regular basis. His substernal chest tightness does not radiate. There is diaphoresis, associated shortness of breath, and pale appearance with a substernal chest discomfort. He states that it typically occurs with walking approximately 100-150 feet while in [place] but then later acknowledge that it is occurring even in the hospital walking short distances such as to the bathroom, which is on the other side of the room, 10-15 feet. He denies any rest discomfort. He denies palpitations and orthopnea. Review of systems: As above. Review of systems otherwise negative/unremarkable. Family history: Mother had CAD diagnosed in her 80s. Social history: He quit smoking in 1975 but had smoked up to 2 packs per day for approximately 10 years. No alcohol. No drugs. He is x1 and currently to his second who was present at the bedside. He has 2 biologic children, 1 adopted, and 1 stepchild. Allergies Allergy/AdvReac Type Severity Reaction Status Date / Time auranofin Allergy Severe SHORTNESS Verified 12/12/19 09:45 OF BREATH benzyl alcohol Allergy Intermediate . Verified 12/12/19 09:45 Gold Salts Allergy Unknown HIVES TO Verified 12/12/19 09:45 GOLD SHOTS Home Medications Home Medications Medication Instructions Recorded Confirmed Type omeprazole 20 mg capsule,delayed 20 mg PO DAILY #90 cap 06/03/19 12/12/19 History release oxcarbazepine 150 mg tablet 150 mg PO DAILY #90 tab 06/04/19 12/12/19 Rx metformin 1,000 mg tablet 1,000 mg PO BID #180 tab 06/16/19 12/12/19 Rx fluticasone propionate 50 1 spray INTRANASAL DAILY PRN #1 gm 06/19/19 12/12/19 History mcg/actuation nasal spray,suspension multivitamin 1 tab PO DAILY 06/19/19 12/12/19 History glimepiride 1 mg tablet 1 mg PO BID #60 tab 07/02/19 12/12/19 Rx aspirin 81 mg tablet,delayed 81 mg PO DAILY #90 tab 07/09/19 12/12/19 History release hydroxychloroquine 200 mg tablet 200 mg PO BID #60 tab 07/09/19 12/12/19 History loratadine 10 mg tablet 10 mg PO DAILY #90 tab 07/09/19 12/12/19 History magnesium oxide 400 mg (241.3 mg 400 mg PO DAILY tab 07/09/19 12/12/19 History magnesium) tablet montelukast 10 mg tablet 10 mg PO QPM #90 tab 07/09/19 12/12/19 History atorvastatin 40 mg tablet 40 mg PO DAILY #90 tab 08/31/19 12/12/19 Rx albuterol sulfate 90 mcg/actuation 2 puffs INHALATION Q6H PRN #18 gm 10/01/19 12/12/19 Rx aerosol inhaler ipratropium 20 mcg-albuterol 100 1 puffs INHALATION QID #1 gm 10/01/19 12/12/19 History mcg/actuation mist for inhalation prednisone 5 mg tablet 5 mg PO DAILY #90 tab 10/02/19 12/12/19 Rx metoprolol tartrate 25 mg tablet 75 mg PO BID #360 tab 11/03/19 12/12/19 Rx nitroglycerin 0.4 mg sublingual 0.4 mg SL Q5M PRN #25 tab 11/06/19 12/12/19 Rx tablet escitalopram oxalate 10 mg tablet 10 mg PO DAILY #30 tab 11/16/19 12/12/19 Rx ascorbic acid (vitamin C) 0 mg PO DAILY 12/12/19 12/12/19 History budesonide-formoterol [Symbicort] 2 puff INHALATION BID 12/12/19 12/12/19 History celecoxib [Celebrex] 200 mg PO BID 12/12/19 12/12/19 History cholecalciferol (vitamin D3) 25 mcg PO BID 12/12/19 12/12/19 History [Vitamin D3] cyanocobalamin (vitamin B-12) 1,000 mcg PO BID 12/12/19 12/12/19 History lactobacillus combination no.4 0 mmu cells PO DAILY 12/12/19 12/12/19 History [Probiotic] potassium gluconate 595 mg PO DAILY 12/12/19 12/12/19 History ropinirole 0.5 mg PO QPM 12/12/19 12/12/19 History umeclidinium [Incruse Ellipta] 1 puffs INHALATION DAILY 12/12/19 12/12/19 History Patient History Medical History Alzheimer's disease (Acute) Aortic stenosis (Acute) Chronic low back pain CKD (chronic kidney disease) (Acute) Essential hypertension (Acute) Hyperlipidemia (Acute) Obesity (Acute) Obstructive sleep apnea (Acute) Osteoarthritis of knee (Acute) Peptic ulcer (Acute) Restless legs (Acute) Restrictive lung disease (Acute) Rheumatoid arthritis (Acute) Tachycardia (Acute) Tubular adenoma of colon (Acute) Type 2 diabetes mellitus Venous insufficiency (Acute) Family History Mother Diabetes Coronary heart disease Brother Hypertension Sister Hypertension Father Hypertension Social History Preferred Language: Stateless Communication Ability: Effective Adoption Worker Required: No Beliefs That Will Affect Care: None marital status: Current Living Situation: Spouse Feels Safe at Home: Yes Smoking Status: Former smoker Number of Years Since Quit: 43 ; Hx Alcohol Use: No Hx Substance Use: No Physical Exam Physical Exam: Gen.: No acute distress. Alert and oriented. HEENT: Anicteric sclera. Neck: Thick neck. No bruits noted. Normal carotid upstrokes bilaterally. Cardiac: PMI was nondisplaced. No ventricular heave. Regular. Normal S1-S2. 2/6 mid to late peaking systolic ejection murmur heard best at right upper sternal border. No rubs or gallops. Pulmonary: Decreased breath sounds with mild expiratory wheezing bilaterally. Abdomen: Protuberant, nontender, with normoactive bowel sounds. No bruits noted. Extremities: 2+ radial pulses bilaterally. 2+ posterior tibialis pulses bilaterally. No edema or cyanosis. No palpable cords. Psychiatric: Affect appears appropriate. Chest: Nontender to palpation. Results & Data Vital Signs (Past 12 Hours) Vital Signs Temp Pulse Pulse Pulse Pulse Resp Resp 12/14/19 15:18 62 14 12/14/19 15:00 36.7 C 79 18 12/14/19 11:16 75 18 12/14/19 09:18 80 75 79 18 12/14/19 07:00 36.7 C 73 16 12/14/19 06:54 68 16 Resp Resp BP Pulse Ox Pulse Ox Pulse Ox Pulse Ox 12/14/19 15:18 96 12/14/19 15:00 145/76 H 97 12/14/19 11:16 93 12/14/19 09:18 18 18 95 98 94 12/14/19 07:00 132/77 94 12/14/19 06:54 94 Laboratory Results Laboratory Results - last 48 hr 12/12/19 12/12/19 12/13/19 20:42 21:45 05:36 WBC 9.54 RBC 3.57 L Hgb 12.0 L Hct 36.1 L MCV 101.1 H MCH 33.6 MCHC 33.2 RDW Std Deviation 53.5 H RDW Coeff of Farideh 14.4 Plt Count 173 MPV 10.2 Immature Gran % (Auto) 0.3 Neut % (Auto) 87.1 Lymph % (Auto) 8.1 [place] % (Auto) 4.5 Eos % (Auto) 0.0 Baso % (Auto) 0.0 Immature Gran # (Auto) 0.03 H Neut # (Auto) 8.31 H Lymph # (Auto) 0.77 L [place] # (Auto) 0.43 Eos # (Auto) 0.00 Baso # (Auto) 0.00 Sodium Potassium Chloride Carbon Dioxide Anion Gap BUN Creatinine Est Cr Clr Drug Dosing Est GFR ( Amer) Est GFR (Non-Af Amer) BUN/Creatinine Ratio Glucose POC Glucose 261 H Estimat Average Glucose Hemoglobin A1c Calcium Magnesium Urine Color Urine Appearance Urine pH Ur Specific [place] Urine Protein Urine Glucose (UA) Urine Ketones Urine Blood Urine Nitrite Urine Bilirubin Urine Urobilinogen Ur Leukocyte Esterase Influenza Type A Ag Neg for Influ A Influenza Type B Ag Neg for Influ B 12/13/19 12/13/19 12/13/19 05:36 05:36 07:32 WBC RBC Hgb Hct MCV MCH MCHC RDW Std Deviation RDW Coeff of Farideh Plt Count MPV Immature Gran % (Auto) Neut % (Auto) Lymph % (Auto) [place] % (Auto) Eos % (Auto) Baso % (Auto) Immature Gran # (Auto) Neut # (Auto) Lymph # (Auto) [place] # (Auto) Eos # (Auto) Baso # (Auto) Sodium 132 L Potassium 4.8 D Chloride 101 Carbon Dioxide 25 Anion Gap 6.0 BUN 24 H Creatinine 1.14 Est Cr Clr Drug Dosing 67.3 Est GFR ( Amer) 73.0 Est GFR (Non-Af Amer) 63.0 BUN/Creatinine Ratio 21.4 H Glucose 186 H POC Glucose 181 H Estimat Average Glucose 169 Hemoglobin A1c 7.5 H Calcium 9.2 Magnesium 1.9 Urine Color Urine Appearance Urine pH Ur Specific [place] Urine Protein Urine Glucose (UA) Urine Ketones Urine Blood Urine Nitrite Urine Bilirubin Urine Urobilinogen Ur Leukocyte Esterase Influenza Type A Ag Influenza Type B Ag 12/13/19 12/13/19 12/13/19 11:32 16:36 20:08 WBC RBC Hgb Hct MCV MCH MCHC RDW Std Deviation RDW Coeff of Farideh Plt Count MPV Immature Gran % (Auto) Neut % (Auto) Lymph % (Auto) [place] % (Auto) Eos % (Auto) Baso % (Auto) Immature Gran # (Auto) Neut # (Auto) Lymph # (Auto) [place] # (Auto) Eos # (Auto) Baso # (Auto) Sodium Potassium Chloride Carbon Dioxide Anion Gap BUN Creatinine Est Cr Clr Drug Dosing Est GFR ( Amer) Est GFR (Non-Af Amer) BUN/Creatinine Ratio Glucose POC Glucose 249 H 177 H 281 H Estimat Average Glucose Hemoglobin A1c Calcium Magnesium Urine Color Urine Appearance Urine pH Ur Specific [place] Urine Protein Urine Glucose (UA) Urine Ketones Urine Blood Urine Nitrite Urine Bilirubin Urine Urobilinogen Ur Leukocyte Esterase Influenza Type A Ag Influenza Type B Ag 12/13/19 12/14/19 12/14/19 Unknown 07:46 11:47 WBC RBC Hgb Hct MCV MCH MCHC RDW Std Deviation RDW Coeff of Farideh Plt Count MPV Immature Gran % (Auto) Neut % (Auto) Lymph % (Auto) [place] % (Auto) Eos % (Auto) Baso % (Auto) Immature Gran # (Auto) Neut # (Auto) Lymph # (Auto) [place] # (Auto) Eos # (Auto) Baso # (Auto) Sodium Potassium Chloride Carbon Dioxide Anion Gap BUN Creatinine Est Cr Clr Drug Dosing Est GFR ( Amer) Est GFR (Non-Af Amer) BUN/Creatinine Ratio Glucose POC Glucose 179 H 269 H Estimat Average Glucose Hemoglobin A1c Calcium Magnesium Urine Color Yellow Urine Appearance Clear Urine pH 5.5 Ur Specific [place] 1.010 Urine Protein Negative Urine Glucose (UA) 2+ H Urine Ketones Negative Urine Blood Negative Urine Nitrite Negative Urine Bilirubin Negative Urine Urobilinogen Negative Ur Leukocyte Esterase Negative Influenza Type A Ag Influenza Type B Ag 12/14/19 16:30 WBC RBC Hgb Hct MCV MCH MCHC RDW Std Deviation RDW Coeff of Farideh Plt Count MPV Immature Gran % (Auto) Neut % (Auto) Lymph % (Auto) [place] % (Auto) Eos % (Auto) Baso % (Auto) Immature Gran # (Auto) Neut # (Auto) Lymph # (Auto) [place] # (Auto) Eos # (Auto) Baso # (Auto) Sodium Potassium Chloride Carbon Dioxide Anion Gap BUN Creatinine Est Cr Clr Drug Dosing Est GFR ( Amer) Est GFR (Non-Af Amer) BUN/Creatinine Ratio Glucose POC Glucose 260 H Estimat Average Glucose Hemoglobin A1c Calcium Magnesium Urine Color Urine Appearance Urine pH Ur Specific [place] Urine Protein Urine Glucose (UA) Urine Ketones Urine Blood Urine Nitrite Urine Bilirubin Urine Urobilinogen Ur Leukocyte Esterase Influenza Type A Ag Influenza Type B Ag Diagnostic Findings Echo report reviewed from 01/05/2019: Normal biventricular systolic function. Moderate LVH. Moderate to severe aortic stenosis. Max velocity 3 m/sec with a mean gradient of 22 and JOSE MANUEL of 0.95. ECGs personally reviewed: ECG 12/12/2019: Sinus rhythm [address] abnormality. Prolonged QT. ECG 12/13/2019: Sinus rhythm [address] 12/12/2019: No acute intracranial abnormality per Radiology. Patchy white matter hypodensity suggest chronic microvascular ischemic disease. Medications Administered Current Inpatient Medications Acetaminophen (Tylenol) 650 mg PO Q4H PRN PRN Reason: pain/fever Stop: 01/11/20 13:43 Albuterol (Duoneb) 3 ml NEB Q2H PRN PRN Reason: Shortness of Breath/Wheezing Stop: 01/11/20 13:43 Albuterol (Duoneb) 3 ml NEB QIDR JOAO Stop: 01/11/20 14:59 Last Admin: 12/14/19 15:18 Dose: 3 ml Documented by: Aspirin (Ecotrin Ectab) 81 mg PO DAILY COUNT INCLUDES THE [facility] Stop: 01/12/20 08:59 Last Admin: 12/14/19 07:56 Dose: 81 mg Documented by: Atorvastatin Calcium (Lipitor) 40 mg PO DAILY COUNT INCLUDES THE [facility] Stop: 01/12/20 08:59 Last Admin: 12/14/19 07:55 Dose: 40 mg Documented by: Celecoxib (Celebrex) 200 mg PO BID JOAO Stop: 01/11/20 20:59 Last Admin: 12/14/19 07:54 Dose: 200 mg Documented by: Cyanocobalamin (Vitamin B-12) 1,000 mcg PO BID COUNT INCLUDES THE [facility] Stop: 01/11/20 20:59 Last Admin: 12/14/19 07:56 Dose: 1,000 mcg Documented by: Dextrose (Dextrose 50%) 25 - 50 ml IV UD PRN; Protocol PRN Reason: Hypoglycemia Protocol Stop: 01/11/20 13:43 Doxycycline Hyclate (Vibramycin) 100 mg PO BID JOAO; Protocol Stop: 12/19/19 20:59 Last Admin: 12/14/19 07:55 Dose: 100 mg Documented by: Enoxaparin Sodium (Lovenox) 40 mg SQ Q24H COUNT INCLUDES THE [facility] Stop: 01/11/20 13:43 Last Admin: 12/13/19 20:57 Dose: 40 mg Documented by: Escitalopram Oxalate (Lexapro Tab) 10 mg PO DAILY COUNT INCLUDES THE [facility] Stop: 01/12/20 08:59 Last Admin: 12/14/19 07:56 Dose: 10 mg Documented by: Fluticasone Propionate (Flonase) 1 sprays NA DAILY PRN PRN Reason: Nasal Congestion Stop: 01/11/20 13:43 Glucagon (Glucagen) 1 mg SQ UD PRN; Protocol PRN Reason: Hypoglycemia Protocol Stop: 01/11/20 13:43 Glucose (Dex4 Glucose) 4 - 8 tabs PO UD PRN; Protocol PRN Reason: Hypoglycemia Protocol Stop: 01/11/20 13:43 Glucose (Glucose 40%) 15 - 30 gm PO UD PRN; Protocol PRN Reason: Hypoglycemia Protocol Stop: 01/11/20 13:43 Guaifenesin (Mucinex) 1,200 mg PO BID JOAO Stop: 01/11/20 20:59 Last Admin: 12/14/19 07:55 Dose: 1,200 mg Documented by: Hydroxychloroquine Sulfate (Plaquenil) 200 mg PO BID COUNT INCLUDES THE [facility] Stop: 01/11/20 20:59 Last Admin: 12/14/19 07:55 Dose: 200 mg Documented by: Insulin Aspart (Novolog Flexpen) 0 units SC ACHS COUNT INCLUDES THE [facility] Stop: 01/11/20 16:29 Last Admin: 12/14/19 17:41 Dose: 5 units Documented by: Lidocaine (Lidoderm 5%) 1 patch TD QAM COUNT INCLUDES THE [facility] Stop: 01/12/20 14:59 Last Admin: 12/14/19 07:57 Dose: 1 patch Documented by: Loratadine (Claritin) 10 mg PO DAILY COUNT INCLUDES THE [facility] Stop: 01/12/20 08:59 Last Admin: 12/14/19 07:56 Dose: 10 mg Documented by: Magnesium Oxide (Mag-Ox) 400 mg PO DAILY@1200 COUNT INCLUDES THE [facility] Stop: 01/12/20 11:59 Last Admin: 12/14/19 07:56 Dose: 400 mg Documented by: Metoprolol Tartrate (Lopressor) 75 mg PO BID COUNT INCLUDES THE [facility] Stop: 01/11/20 20:59 Last Admin: 12/14/19 07:54 Dose: 75 mg Documented by: Miscellaneous (Carbohydrates For Hypoglycemia) 15 - 30 gm PO UD PRN PRN Reason: Hypoglycemia Protocol Stop: 01/11/20 13:43 Miscellaneous (Remove Lidoderm Patch) 1 ea N/A DAILY@2100 COUNT INCLUDES THE [facility] Stop: 01/12/20 20:59 Last Admin: 12/13/19 20:58 Dose: 1 ea Documented by: Montelukast Sodium (Singulair) 10 mg PO QPM COUNT INCLUDES THE [facility] Stop: 01/11/20 20:59 Last Admin: 12/13/19 20:55 Dose: 10 mg Documented by: Multivitamins (Multivitamin Tab) 1 tab PO DAILY@1200 COUNT INCLUDES THE [facility] Stop: 01/12/20 11:59 Last Admin: 12/14/19 12:40 Dose: 1 tab Documented by: Neomycin/Polymyxin/Bacitracin (Neosporin Oint) 1 appln EXT PRN PRN PRN Reason: other Stop: 01/12/20 21:40 Last Admin: 12/14/19 00:56 Dose: 1 appln Documented by: Nitroglycerin (Nitrostat) 0.4 mg SL Q5M PRN PRN Reason: chest pain Stop: 01/11/20 13:43 Oxcarbazepine (Trileptal) 150 mg PO DAILY COUNT INCLUDES THE [facility] Stop: 01/12/20 08:59 Last Admin: 12/14/19 07:58 Dose: 150 mg Documented by: Pantoprazole Sodium (Protonix) 40 mg PO DAILY JOAO Stop: 01/12/20 08:59 Last Admin: 12/14/19 07:54 Dose: 40 mg Documented by: Prednisone (Prednisone) 40 mg PO BID COUNT INCLUDES THE [facility] Stop: 01/11/20 13:43 Last Admin: 12/14/19 07:54 Dose: 40 mg Documented by: Ropinirole HCl (Requip) 0.5 mg PO QPM JOAO Stop: 01/11/20 20:59 Last Admin: 12/13/19 20:56 Dose: 0.5 mg Documented by: Tramadol HCl (Ultram) 50 mg PO Q4H PRN PRN Reason: Pain Stop: 01/11/20 13:43 Last Admin: 12/12/19 21:27 Dose: 50 mg Documented by: Umeclidinium [place] (Incruse Ellipta) 1 puffs INH DAILY COUNT INCLUDES THE [facility] Stop: 01/12/20 08:59 Last Admin: 12/14/19 07:56 Dose: 1 puffs Documented by: Vitamin D (Vitamin D3) 1,000 units PO BID JOAO Stop: 01/11/20 20:59 Last Admin: 12/14/19 07:55 Dose: 1,000 units Documented by: PG Care Time/CCT Total # of Minutes Spent Total Time Spent with Patient: Total time spent is greater than 50% in coordination of care (as documented) at patient's floor/unit and/or counseling patient:
--- NOTE | 2019-12-14 20:21 | Electrocardiogram Report ---
Test Reason : Blood Pressure : / mmHG Vent. Rate : 080 BPM Atrial Rate : 080 BPM P-R Int : 146 ms QRS Dur : 084 ms QT Int : 410 ms P-R-T Axes : 039 048 071 degrees QTc Int : 472 ms Normal sinus rhythm Normal ECG When compared with ECG of 12-DEC-2019 09:34, No significant change was found Confirmed by Wilmer Haines ([id number]) on 12/14/2019 8:21:24 PM Referred By: REFERRED SELF Confirmed By:Wilmer Haines
[2019-12-14] MEDS: ROPINIROLE HCL 0.25 MG TABLET PO SCH (20:30)
[2019-12-14] MEDS: MONTELUKAST SODIUM 10 MG TABLET PO SCH (20:31)
[2019-12-14] MEDS: ENOXAPARIN INJ 40 MG/0.4 ML SYR SQ SCH (20:32)
[2019-12-14] MEDS ORDERED: METOPROLOL TARTRATE 25 MG TAB PO ONE (21:26)
[2019-12-15 05:44] LABS: Hematocrit (blood only) 34.7 % (42-52); Hemoglobin 11.5 g/dL (14.0-18.0); Mean Corpuscular Hemoglobin 33.6 pg (25-34); Mean Corpuscular Hgb Conc 33.1 g/dL (32-36); Mean Corpuscular Volume 101.5 fL (80-100); Mean Platelet Volume 10.1 fL (7.4-10.4); Platelet Count 183 K/uL (130-400); RDW Coefficient of Variation 14.4 % (11.5-14.5); RDW Standard Deviation 53.4 fL (36.4-46.3); Red Blood Count 3.42 M/uL (4.7-6.1); White Blood Count 12.47 K/uL (4.8-10.8)
[2019-12-15 06:02] LABS: Blood Urea Nitrogen 32 mg/dl (7-18); Carbon Dioxide 29 mmol/L (21-32); Chloride 106 mmol/L (98-107); Creatinine Clr Calc Pharmacy 61.2 ml/min; Est GFR (African American) 65.3; Est GFR (Non-African American) 56.4; Glucose Fasting 173 mg/dl (70-99); Potassium 4.5 mmol/L (3.5-5.1); Sodium 138 mmol/L (136-145)
[2019-12-15 06:07] LABS: Troponin I < 0.015 ng/ml (0-0.045)
[2019-12-15] MEDS: ALBUT/IPRATROP 3MG/0.5MG NEB 3 ML VIAL NEB SCH ×4 (06:59→19:11)
[2019-12-15] MEDS: INSULIN ASPART 100 UNITS/ML 3 ML PEN SC SCH ×4 (08:19→20:48)
[2019-12-15] MEDS: METOPROLOL TARTRATE 100 MG TAB PO SCH ×2 (08:20→20:41)
[2019-12-15] MEDS: ATORVASTATIN 40 MG TAB PO SCH (08:20)
[2019-12-15] MEDS: CHOLECALCIFEROL 1,000 UNITS 25 MCG TAB PO SCH ×2 (08:20→20:45)
[2019-12-15] MEDS: predniSONE 20 MG TAB PO SCH (08:20)
[2019-12-15] MEDS: OXcarbazepine 150 MG TABLET PO SCH (08:21)
[2019-12-15] MEDS: ESCITALOPRAM OXALATE 10 MG TAB PO SCH (08:21)
[2019-12-15] MEDS: PANTOprazole 40 MG TAB PO SCH (08:21)
[2019-12-15] MEDS: ASPIRIN 81 MG ECTAB PO SCH (08:21)
[2019-12-15] MEDS: LORATADINE 10 MG TAB PO SCH (08:21)
[2019-12-15] MEDS: LIDOCAINE 5% 1 PATCH TD SCH (08:22)
[2019-12-15] MEDS: guaiFENesin 600 MG TABCR PO SCH ×2 (08:22→20:41)
[2019-12-15] MEDS: HYDROXYCHLOROQUINE SULFATE 200 MG TAB PO SCH ×2 (08:22→20:47)
[2019-12-15] MEDS: CYANOCOBALAMIN 500 MCG TABLET (VITAMIN B-12) PO SCH ×2 (08:23→20:45)
[2019-12-15] MEDS: DOXYCYCLINE HYCLATE 100 MG CAP PO SCH ×2 (08:23→20:44)
[2019-12-15] MEDS: UMECLIDINIUM BROMIDE 62.5MCG/BLISTER 7 PUFFS/INHALER INH SCH (08:23)
[2019-12-15] MEDS: CeleBREX 200 MG CAP PO SCH ×2 (08:23→20:42)
--- NOTE | 2019-12-15 10:01 | Cardiology Progress Note ---
Date of Service December 15, 2019 Assessment & Plan (1) Aortic stenosis: (2) Chest pain, exertional: (3) [place] (dyspnea on exertion): (4) Essential hypertension: ASSESSMENT/PLAN: 1. Exertional chest pain: With severe aortic stenosis, there is concern that his symptoms are being driven by his aortic stenosis. This was discussed with his at the bedside. Because of this, would recommend cardiac catheterization in anticipation of aortic valve replacement. His is in agreement to proceed. Because of his coughing and COPD issues, would recommend that his pulmonary situation first demonstrates some improvement prior to cardiac catheterization. Risks and benefits were discussed with he and her. 2. Aortic stenosis: Severe on current echo. His would like him to pursue aortic valve replacement given his significant exertional symptoms. 3. Dyspnea with exertion: Likely multifactorial, including COPD and aortic stenosis. He appears euvolemic on exam. He is asymptomatic at rest. 4. Hypertension: Blood pressure has been normotensive to hypertensive. Beta-bl ocker has been increased, with today being the first full day. Continue to monitor. 5. Fall: He denies syncope as the cause of his fall but did lose consciousness briefly after striking his head. 6. Disposition: Cardiology will continue to follow. Patient care discussed with Ms. Lorenz of the primary hospitalist service and also Dr. Dillon. On discharge, he should follow up with his primary river rat, Dr. Dillon. Subjective He is a poor historian. When asked if he had any further chest pain, he stated no. Later, he stated that he may have had 1 episode of chest pain that was not severe while walking to the restroom. It is unclear if he has experience any further chest discomfort since yesterday. He denies shortness of breath. He was noted to be coughing prior to entering the room. He denies syncope, near- syncope, palpitations, or bleeding, or edema. He was alone in this hospital room. Review of systems: As above. Physical Exam Physical Exam: Gen.: No acute distress. Alert. HEENT: Anicteric sclera. Neck: Thick neck. Cardiac: Regular. Normal S1-S2. 2/6 at least mid to late peaking systolic ejection murmur heard best at right upper sternal border. No rubs or gallops. Pulmonary: Decreased breath sounds, otherwise clear. Abdomen: Protuberant, nontender, with normoactive bowel sounds. No bruits noted. Extremities: 2+ radial pulses bilaterally. 2+ posterior tibialis pulses bilaterally. No edema or cyanosis. Psychiatric: Affect appears appropriate. Results & Data Vital Signs (Past 12 Hours) Vital Signs Temp Pulse Pulse Resp BP Pulse Ox 12/15/19 07:01 64 16 93 12/15/19 06:59 36.7 C 64 22 134/75 92 12/15/19 02:51 36.4 C L 70 16 147/79 H 91 12/14/19 23:42 36.4 C L 75 20 125/75 95 12/14/19 23:13 73 16 98 Intake & Output 12/13/19 12/14/19 12/15/19 12/16/19 06:59 06:59 06:59 06:59 Intake Total 1250 / 1250 1300 / 1300 1250 / 1250 Output Total 1450 / 1450 600 / 600 Balance -200 / -200 1300 / 1300 650 / 650 Weight 106.5 kg 105.9 kg Laboratory Results Laboratory Results - last 24 hr 12/14/19 12/14/19 12/14/19 11:47 16:30 20:08 WBC RBC Hgb Hct MCV MCH MCHC RDW Std Deviation RDW Coeff of Farideh Plt Count MPV Sodium Potassium Chloride Carbon Dioxide Anion Gap BUN Creatinine Est Cr Clr Drug Dosing Est GFR ( Amer) Est GFR (Non-Af Amer) POC Glucose 269 H 260 H 305 H* Fasting Glucose Calcium Troponin I 12/15/19 12/15/19 12/15/19 05:15 05:15 07:24 WBC 12.47 H RBC 3.42 L Hgb 11.5 L Hct 34.7 L MCV 101.5 H MCH 33.6 MCHC 33.1 RDW Std Deviation 53.4 H RDW Coeff of Farideh 14.4 Plt Count 183 MPV 10.1 Sodium 138 Potassium 4.5 Chloride 106 Carbon Dioxide 29 Anion Gap 3.0 BUN 32 H Creatinine 1.25 Est Cr Clr Drug Dosing 61.2 Est GFR ( Amer) 65.3 Est GFR (Non-Af Amer) 56.4 POC Glucose 170 H Fasting Glucose 173 H Calcium 9.0 Troponin I < 0.015 Diagnostic Findings Telemetry personally reviewed: Sinus rhythm. No arrhythmia. Echo 12/15/2019: Normal LV size and systolic function. EF 65-70%. Normal wall motion. Moderate LVH. Severe aortic stenosis. Mild to moderate MR. Moderate MAC. RVSP 49. Medications Administered Current Inpatient Medications Acetaminophen (Tylenol) 650 mg PO Q4H PRN PRN Reason: pain/fever Stop: 01/11/20 13:43 Albuterol (Duoneb) 3 ml NEB Q2H PRN PRN Reason: Shortness of Breath/Wheezing Stop: 01/11/20 13:43 Albuterol (Duoneb) 3 ml NEB QIDR [facility] Stop: 01/11/20 14:59 Last Admin: 12/15/19 06:59 Dose: 3 ml Documented by: Aspirin (Ecotrin Ectab) 81 mg PO DAILY [facility] Stop: 01/12/20 08:59 Last Admin: 12/15/19 08:21 Dose: 81 mg Documented by: Atorvastatin Calcium (Lipitor) 40 mg PO DAILY [facility] Stop: 01/12/20 08:59 Last Admin: 12/15/19 08:20 Dose: 40 mg Documented by: Celecoxib (Celebrex) 200 mg PO BID [facility] Stop: 01/11/20 20:59 Last Admin: 12/15/19 08:23 Dose: 200 mg Documented by: Cyanocobalamin (Vitamin B-12) 1,000 mcg PO BID [facility] Stop: 01/11/20 20:59 Last Admin: 12/15/19 08:23 Dose: 1,000 mcg Documented by: Dextrose (Dextrose 50%) 25 - 50 ml IV UD PRN; Protocol PRN Reason: Hypoglycemia Protocol Stop: 01/11/20 13:43 Doxycycline Hyclate (Vibramycin) 100 mg PO BID [facility]; Protocol Stop: 12/19/19 20:59 Last Admin: 12/15/19 08:23 Dose: 100 mg Documented by: Enoxaparin Sodium (Lovenox) 40 mg SQ Q24H [facility] Stop: 01/11/20 13:43 Last Admin: 12/14/19 20:32 Dose: 40 mg Documented by: Escitalopram Oxalate (Lexapro Tab) 10 mg PO DAILY [facility] Stop: 01/12/20 08:59 Last Admin: 12/15/19 08:21 Dose: 10 mg Documented by: Fluticasone Propionate (Flonase) 1 sprays NA DAILY PRN PRN Reason: Nasal Congestion Stop: 01/11/20 13:43 Fluticasone/Vilanterol (Breo Ellipta 100/25 Mcg Inh) 1 puffs INH HS [facility]AO; Protocol Stop: 01/14/20 20:59 Glucagon (Glucagen) 1 mg SQ UD PRN; Protocol PRN Reason: Hypoglycemia Protocol Stop: 01/11/20 13:43 Glucose (Dex4 Glucose) 4 - 8 tabs PO UD PRN; Protocol PRN Reason: Hypoglycemia Protocol Stop: 01/11/20 13:43 Glucose (Glucose 40%) 15 - 30 gm PO UD PRN; Protocol PRN Reason: Hypoglycemia Protocol Stop: 01/11/20 13:43 Guaifenesin (Mucinex) 1,200 mg PO BID [facility] Stop: 01/11/20 20:59 Last Admin: 12/15/19 08:22 Dose: 1,200 mg Documented by: Hydroxychloroquine Sulfate (Plaquenil) 200 mg PO BID [facility] Stop: 01/11/20 20:59 Last Admin: 12/15/19 08:22 Dose: 200 mg Documented by: Insulin Aspart (Novolog Flexpen) 0 units SC ACHS [facility] Stop: 01/11/20 16:29 Last Admin: 12/15/19 08:19 Dose: 3 units Documented by: Lidocaine (Lidoderm 5%) 1 patch TD QAM [facility] Stop: 01/12/20 14:59 Last Admin: 12/15/19 08:22 Dose: 1 patch Documented by: Loratadine (Claritin) 10 mg PO DAILY [facility] Stop: 01/12/20 08:59 Last Admin: 12/15/19 08:21 Dose: 10 mg Documented by: Magnesium Oxide (Mag-Ox) 400 mg PO DAILY@1200 [facility] Stop: 01/12/20 11:59 Last Admin: 12/14/19 07:56 Dose: 400 mg Documented by: Metoprolol Tartrate (Lopressor) 100 mg PO BID [facility] Stop: 01/14/20 08:59 Last Admin: 12/15/19 08:20 Dose: 100 mg Documented by: Miscellaneous (Carbohydrates For Hypoglycemia) 15 - 30 gm PO UD PRN PRN Reason: Hypoglycemia Protocol Stop: 01/11/20 13:43 Miscellaneous (Remove Lidoderm Patch) 1 ea N/A DAILY@2100 [facility] Stop: 01/12/20 20:59 Last Admin: 12/14/19 20:29 Dose: 1 ea Documented by: Montelukast Sodium (Singulair) 10 mg PO QPM [facility] Stop: 01/11/20 20:59 Last Admin: 12/14/19 20:31 Dose: 10 mg Documented by: Multivitamins (Multivitamin Tab) 1 tab PO DAILY@1200 [facility] Stop: 01/12/20 11:59 Last Admin: 12/14/19 12:40 Dose: 1 tab Documented by: Neomycin/Polymyxin/Bacitracin (Neosporin Oint) 1 appln EXT PRN PRN PRN Reason: other Stop: 01/12/20 21:40 Last Admin: 12/14/19 00:56 Dose: 1 appln Documented by: Nitroglycerin (Nitrostat) 0.4 mg SL Q5M PRN PRN Reason: chest pain Stop: 01/11/20 13:43 Oxcarbazepine (Trileptal) 150 mg PO DAILY [facility] Stop: 01/12/20 08:59 Last Admin: 12/15/19 08:21 Dose: 150 mg Documented by: Pantoprazole Sodium (Protonix) 40 mg PO DAILY [facility] Stop: 01/12/20 08:59 Last Admin: 12/15/19 08:21 Dose: 40 mg Documented by: Prednisone (Prednisone) 40 mg PO BID [facility] Stop: 01/11/20 13:43 Last Admin: 12/15/19 08:20 Dose: 40 mg Documented by: Ropinirole HCl (Requip) 0.5 mg PO QPM [facility] Stop: 01/11/20 20:59 Last Admin: 12/14/19 20:30 Dose: 0.5 mg Documented by: Tramadol HCl (Ultram) 50 mg PO Q4H PRN PRN Reason: Pain Stop: 01/11/20 13:43 Last Admin: 12/12/19 21:27 Dose: 50 mg Documented by: Umeclidinium [place] (Incruse Ellipta) 1 puffs INH DAILY [facility] Stop: 01/12/20 08:59 Last Admin: 12/15/19 08:23 Dose: 1 puffs Documented by: Vitamin D (Vitamin D3) 1,000 units PO BID [facility] Stop: 01/11/20 20:59 Last Admin: 12/15/19 08:20 Dose: 1,000 units Documented by: PG Care Time/CCT Total # of Minutes Spent Total Time Spent with Patient: Total time spent is greater than 50% in coordination of care (as documented) at patient's floor/unit and/or counseling patient:
[2019-12-15] MEDS: MAGNESIUM OXIDE 400 MG TAB PO SCH (11:49)
[2019-12-15] MEDS: MULTIVITAMIN TAB PO SCH (11:49)
--- NOTE | 2019-12-15 17:28 | Hospitalist Progress Note ---
Date of Service December 15, 2019 Assessment & Plan (1) Fall: - Reports likely mechanical fall resulting in falling down 5-6 steps and suspected LOC from striking head. States he crawled to the bathroom. Denies H/O symptoms prior to fall but states it was rapid but does feel like it was his l egs. - He has been feeling under the weather and possibly some dehydration. He does report intermittent dizziness in the past but never syncope - Head CT - negative for acute processes -- No neurological deficits appreciated - Echo - EF 65-70%, no wall motion abnormality, Severe (further advanced from previous echo), mild-moderate pulmonary HTN -- Appears he chronically has had issues with SOB on exertion and states he will go pale and diaphoretic after a few minutes of slow walking around stores and such - this could be his underlying lung issues vs his aortic valve -- Discussed again and patient reveals that he also gets a burning sensation in the chest with walking and even felt this when doing his 2 step here; he states this is chronic and never occurs at rest - Do wonder if his leg weakness and falls could be from his ? What he is describing may be angina but is not acute - he states he has used NTG in the past once and it did resolve it - Troponins negative; Patient has never had a cardiac cath - Consult cardiology - discussed with Dr. Haines - plans to perform cardiac catheterization as likely angina given valve vs vessels (2) COPD exacerbation: - IMPROVING; Possibly mild exacerbation - given wheezing and change in sputum production -- Is continuing to have some mild blood-tinge sputum/hemoptysis but improving - consider CTA if further symptoms -- Unlikely PE given lack of tachycardia, hypoxia, respiratory distress - Continue Doxycycline and Prednisone with taper - is on chronic steroids daily - Continue Duonebs; Mucinex BID - Follows with [facility] (3) Diabetes mellitus: - Continue SSI - and monitor BSG (4) Obstructive sleep apnea: Continue CPAP nightly as per outpatient orders Disposition: Does not need O2 per 2-step; continue treatment for exacerbation; planning on heart catheterization this admission Subjective Reports his rib pain is improved today. Blood tinged sputum nearly resolved. Continues to have a significant cough but remaining on room air. Verbalizes no new complaints. Tolerating diet without issue. Discussed with cardiology who plans on cardiac cath likely this admission. Review of Systems Constitutional: no fever and no chills Ear, Nose, Mouth, Throat: no sore throat Respiratory: + cough, + dyspnea, + dyspnea on exertion and + hemoptysis ( nearly resolved); no pain on inspiration Cardiovascular: + chest pain with activity (improving); no chest pain at rest, no radiating jaw, neck or arm pain, no lightheadedness, no syncope and no edema Gastrointestinal: no abdominal pain, no nausea, no vomiting, no constipation and no diarrhea/loose stools Genitourinary: no dysuria Musculoskeletal: no body aches Integumentary: no rash Physical Exam Constitutional: WD/WN, vitals as above no acute distress and not ill appearing Eyes: + anicteric sclerae ENMT: Ears: no hearing impairment Neck: trachea midline Respiratory: normal respiratory effort Auscultation: + diminished lung sounds (bases b/l) Cardiovascular: Rate/Rhythm: regular rate and regular rhythm Heart Sounds: + murmur Vessels: no JVD Chest (Breasts): Chest: normal inspection of chest Gastrointestinal (Abdomen): Inspection/Auscultation: + abdomen distended (baseline) and normal bowel sounds Percussion/Palpation: abdomen soft; abdomen nontender Musculoskeletal: Head/Neck/Chest: normocephalic and head atraumatic Skin: no rashes, warm and dry Neurologic: moves all extremities Psychiatric: A+Ox3, euthymic affect Results & Data Vital Signs (Past 12 Hours) Vital Signs Temp Pulse Pulse Resp BP Pulse Ox 12/15/19 15:37 62 12/15/19 15:15 64 18 178/82 H 100 12/15/19 15:12 80 18 96 12/15/19 10:58 73 18 98 12/15/19 10:56 36.5 C 62 20 148/93 H 94 12/15/19 08:00 77 12/15/19 07:01 64 16 93 12/15/19 06:59 36.7 C 64 22 134/75 92 PG Care Time/CCT Total # of Minutes Spent Total Time Spent with Patient: Total time spent is greater than 50% in coordination of care (as documented) at patient's floor/unit and/or counseling patient:
[2019-12-15] MEDS: FLUTICASONE/VILANTEROL 100/25MCG 14 PUFFS/INHALER INH SCH (20:39)
[2019-12-15] MEDS: ROPINIROLE HCL 0.25 MG TABLET PO SCH (20:44)
[2019-12-15] MEDS: MONTELUKAST SODIUM 10 MG TABLET PO SCH (20:45)
[2019-12-15] MEDS: ENOXAPARIN INJ 40 MG/0.4 ML SYR SQ SCH (20:52)
[2019-12-16] MEDS: INSULIN ASPART 100 UNITS/ML 3 ML PEN SC SCH ×4 (06:31→20:47)
[2019-12-16] MEDS: ALBUT/IPRATROP 3MG/0.5MG NEB 3 ML VIAL NEB SCH ×4 (07:11→19:55)
[2019-12-16] MEDS: LIDOCAINE 5% 1 PATCH TD SCH (08:34)
[2019-12-16] MEDS: OXcarbazepine 150 MG TABLET PO SCH (08:34)
[2019-12-16] MEDS: CeleBREX 200 MG CAP PO SCH ×2 (08:35→20:18)
[2019-12-16] MEDS: HYDROXYCHLOROQUINE SULFATE 200 MG TAB PO SCH ×2 (08:35→20:19)
[2019-12-16] MEDS: ATORVASTATIN 40 MG TAB PO SCH (08:35)
[2019-12-16] MEDS: PANTOprazole 40 MG TAB PO SCH (08:36)
[2019-12-16] MEDS: METOPROLOL TARTRATE 100 MG TAB PO SCH ×2 (08:36→20:19)
[2019-12-16] MEDS: ASPIRIN 81 MG ECTAB PO SCH (08:36)
[2019-12-16] MEDS: CYANOCOBALAMIN 500 MCG TABLET (VITAMIN B-12) PO SCH ×2 (08:36→20:16)
[2019-12-16] MEDS: LORATADINE 10 MG TAB PO SCH (08:36)
[2019-12-16] MEDS: DOXYCYCLINE HYCLATE 100 MG CAP PO SCH ×2 (08:36→20:16)
[2019-12-16] MEDS: ESCITALOPRAM OXALATE 10 MG TAB PO SCH (08:37)
[2019-12-16] MEDS: guaiFENesin 600 MG TABCR PO SCH ×2 (08:37→20:17)
[2019-12-16] MEDS: UMECLIDINIUM BROMIDE 62.5MCG/BLISTER 7 PUFFS/INHALER INH SCH (08:37)
[2019-12-16] MEDS: CHOLECALCIFEROL 1,000 UNITS 25 MCG TAB PO SCH ×2 (08:37→20:17)
[2019-12-16] MEDS ORDERED: predniSONE 20 MG TAB PO SCH (09:00)
[2019-12-16] MEDS: MULTIVITAMIN TAB PO SCH (11:22)
[2019-12-16] MEDS: MAGNESIUM OXIDE 400 MG TAB PO SCH (11:24)
[2019-12-16] MEDS ORDERED: HEPARIN (PORCINE) 1000 UNIT/ML 10 ML (CATH LAB USE ONLY) ONE (13:37)
[2019-12-16] MEDS ORDERED: NiCARDipine HCL INJ 2.5 MG/ML 10 ML AMP ONE (13:38)
[2019-12-16] MEDS ORDERED: MIDAZOLAM HCL 1 MG/ML 2ML VIAL ONE (13:38)
[2019-12-16] MEDS ORDERED: fentaNYL citrate 100 MCG/2 ML VIAL ONE (13:38)
[2019-12-16] MEDS ORDERED: NITROGLYCERIN/D5W 100MCG/ML 20ML SYR ONE (13:39)
--- NOTE | 2019-12-16 14:43 | Pre Anesthesia Assessment ---
Date of Service December 16, 2019 Pre Sedation Assessment Vital Signs Temp Pulse Pulse Pulse Resp BP BP 12/16/19 14:00 60 18 156/86 H 12/16/19 11:39 36.8 C 55 L 18 145/89 H 12/16/19 11:06 94 H 19 12/16/19 10:00 57 L 12/16/19 07:37 36.6 C 60 18 169/83 H 12/16/19 07:11 62 19 12/16/19 04:36 36.5 C 62 18 145/79 H 12/16/19 03:15 56 L 16 12/16/19 01:03 70 12/16/19 00:00 36.3 C L 60 22 144/88 H 12/15/19 23:25 70 14 12/15/19 19:11 64 18 12/15/19 18:55 36.4 C L 68 20 141/85 H 12/15/19 15:37 62 12/15/19 15:15 64 18 178/82 H 12/15/19 15:12 80 18 Pulse Ox 12/16/19 14:00 96 12/16/19 11:39 96 12/16/19 11:06 96 12/16/19 10:00 12/16/19 07:37 96 12/16/19 07:11 96 12/16/19 04:36 94 12/16/19 03:15 96 12/16/19 01:03 12/16/19 00:00 95 12/15/19 23:25 94 12/15/19 19:11 95 12/15/19 18:55 95 12/15/19 15:37 12/15/19 15:15 100 12/15/19 15:12 96 Cardiovascular + murmur Respiratory + wheezes Pre-Sedation Airway Assessment Smoking Status: Former smoker Hx Sleep Apnea: Yes Short, Thick Neck: No Thyromental Distance: > or= 3.5 Finger Breadths Oral Cavity: + WNL Mallampati Class: III ASA: ASA3 NPO Status Date of Last Intake of Fluids: 12/15/19 Time of Last Intake of Fluids: 22:00 Date of Last Intake of Solid Food: 12/15/19 Time of Last Intake of Solid Foods: 22:00 Procedure Planning Contraindications for Sedation: none Current Medications Reviewed: Yes Notes The planned sedation has been discussed with the patient. Informed Consent was obtained. I have identified the patient, determined the appropriateness of sedation and have assessed the patient immediately prior to the procedure. All medicine(s) and interventions are by my order.
--- NOTE | 2019-12-16 15:31 | Cardiac Catheterization ---
[facility] Data: Office Specialist Cardiac Status Clinical evaluation leading to the procedure CAD Presenation: Stable angina Anginal Classification: CCS III Heart Failure: No Cardiogenic Shock within 24 Hours: No Cardiac Arrest within 24 Hours: No Imaging Studies Past 6 Months: Yes Stress Studies Past 6 Months: No Standard Exercise Test: No Stress Echocardiogram: No Stress Testing w/SPECT MPI: No Cardiac CTA: No Coronary Anatomy Dominant: Right Left Ventricular Angiography EF (%): n/a Diagnostic Physicians Name: Wilmer Haines MD Status: Elective Closure Device Percutaneous Entry Location: Radial Closure Device: Radial Band Recommendations: Valve Replacement Cardiac Cath Procedure Full Procedure Date December 16, 2019 Pre-Procedure Diagnosis Pre-Procedure Diagnosis: Angina and Valvular Disease AUC Score AUC Score: 7 Post-Procedure Diagnosis Post-Procedure Diagnosis: Severe CAD Procedure(s) Performed Procedure(s) Performed: Coronary Angiography Vp Emerging Media Wilmer Haines MD Estimated Blood Loss Estimated Blood Loss: < 20 ml Medication(s) Medication(s): Fentanyl, Heparin, Lidocaine 1%, Nicardipine and Versed Summary of Findings Procedures: 1. Coronary angiography 2. Moderate sedation Coronary geography: 1. Left main coronary: The LMCA is short in duration but without significant CAD. 2. Left anterior descending: LAD is a medium to large caliber vessel that extends to the apex. Mid LAD 50 to 60% stenosis. JAIRON-3 flow. Small D1 and small D2 without significant CAD. 3. Circumflex: The circumflex is a medium to large caliber vessel. Distally, the circumflex extends as a small caliber vessel. Medium to large caliber OM1. No significant CAD within the circumflex system. 4. Right coronary artery: The RCA is dominant. Proximal RCA 30%. Early mid RCA 20 to 30%. Mid RCA long segment 80 to 90% stenosis with JAIRON-[address] and small [address] without significant CAD. Moderate sedation: 1. Sedation start time: 2:49 PM 2. Sedation end time: 3:09 PM Procedural details: 1. There was no attempt to cross the aortic valve as severe aortic stenosis has previously been documented via echocardiogram during this hospitalization. Impression: 1. Severe CAD involving mid RCA. 2. Moderate nonobstructive CAD involving mid LAD with otherwise mild nonobstructive CAD of the proximal RCA. 3. Previously documented severe aortic stenosis. Plan: 1. Referral to [facility] to consider aortic valve replacement and revascularization as deemed appropriate given significant symptoms impacting quality of life. Hemodynamics Rest Ao:: 161/79 Final Ao: 162/80 LV: n/a Recommendations Recommendations: Valve Replacement Specimens Specimens: None Radiation Exposure (mGy) 1035 mGy. fluoro time 3.1 min. Contrast (mls) 75 ml Procedural Complication(s) None Disposition Office Specialist Holding/Recovery I attest to the content of the Intraoperative Record and any orders documented therein. Any exceptions are noted below. [facility] Card Cath Procedure Codes Cardiac Catheterization Procedure 1: Cardiovascular Cath Procedures: 92072 Coronaries Moderate Sedation Procedure 1: Sedation/Anesthesia: 25465 Mod Sedation by the same physician;Init15 Min Child Age 5 & Up Procedure 2: Sedation/Anesthesia: 65311 Mod Sedation by the same physician; Ea [id number] Minutes PG Care Time/CCT Total # of Minutes Spent Total Time Spent with Patient: Total time spent is greater than 50% in coordination of care (as documented) at patient's floor/unit and/or counseling patient:
[2019-12-16] MEDS ORDERED: SODIUM CHLORIDE 0.9% 1000ML 1,000 ML IV SCH (15:45)
--- NOTE | 2019-12-16 15:56 | Post Anesthesia Assessment ---
Date of Service December 16, 2019 Post Sedation Assessment Vital Signs Temp Pulse Pulse Pulse Resp BP BP 12/16/19 15:35 62 18 159/86 H 12/16/19 15:30 62 18 157/94 H 12/16/19 15:25 62 18 160/89 H 12/16/19 15:20 62 18 150/90 H 12/16/19 14:00 60 18 156/86 H 12/16/19 11:39 36.8 C 55 L 18 145/89 H 12/16/19 11:06 94 H 19 12/16/19 10:00 57 L 12/16/19 07:37 36.6 C 60 18 169/83 H 12/16/19 07:11 62 19 12/16/19 04:36 36.5 C 62 18 145/79 H 12/16/19 03:15 56 L 16 12/16/19 01:03 70 12/16/19 00:00 36.3 C L 60 22 144/88 H 12/15/19 23:25 70 14 12/15/19 19:11 64 18 12/15/19 18:55 36.4 C L 68 20 141/85 H Pulse Ox 12/16/19 15:35 90 12/16/19 15:30 90 12/16/19 15:25 90 12/16/19 15:20 90 12/16/19 14:00 96 12/16/19 11:39 96 12/16/19 11:06 96 12/16/19 10:00 12/16/19 07:37 96 12/16/19 07:11 96 12/16/19 04:36 94 12/16/19 03:15 96 12/16/19 01:03 12/16/19 00:00 95 12/15/19 23:25 94 12/15/19 19:11 95 12/15/19 18:55 95 Recovery Score Activity: Moves 4 extremities Respiration: Deep Breath/Cough Circulation: +/-20% PreAnes Value Consciousness: Fully Awake Oxygen Saturation: > 92% On Room Air Post Anesthesia Score: 10 Discharge Sedation Level of Care: Fast Track Phase II Post Sedation Plan On clinical assessment, the patient appears to have tolerated the sedation without complications. Patient is recovering as anticipated. Patient will continue to be monitored by nursing and may be discharged when sedation discharge criteria are met per below protocol. Upon Completions of procedure up to 15 minutes continue every 5 minute vital signs and the P.A.R. score; then discharge to a Phase I or Fast Track to Phase II per the following guidelines: * Discharge Patient to appropriate Phase II area if PAR is 8 or greater or return to pre- procedure baseline. The post - procedure orders will be as directed. * If PAR score is less than 8 or not return to pre-procedure baseline then patient will follow Phase I monitoring till PAR is reached for Phase II. The Phase I may be done in procedure room or may call to secure a Phase I area. * If naloxone or flumazenil are used for reversal, hold in Phase I for continued monitoring from when last reversal dose was given for a minimum of 60 minutes or longer pending the nurse and/or physician discretion of patient condition before discharge to Phase II. Please call the Sedation Physician to re-evaluate and complete post-note for discharge to Phase II area. Do NOT discharge from procedure sedation or Phase 1 until post- sedation evaluation note is complete by procedure /sedation MD Sedation Discharge Instructions to be given to the patient at discharge to home.
--- NOTE | 2019-12-16 16:13 | Cardiology Progress Note ---
Date of Service December 16, 2019 Assessment & Plan (1) Aortic stenosis: (2) Chest pain, exertional: (3) CAD (coronary artery disease): (4) KIRKLAND (dyspnea on exertion): (5) Essential hypertension: ASSESSMENT/PLAN: 1. Exertional angina: Likely due to severe aortic stenosis and CAD as noted on cardiac catheterization. Continue increased dose of beta-victoriano which he is tolerating well. Optimize blood pressure but avoid significant vasodilators in the setting of severe aortic stenosis. 2. Aortic stenosis: Severe on current echo. Cardiac catheterization was done earlier today. CT [place] [facility] [place], Dr. Cordero, as well as Cardiology, Dr. Rodriguez. They have accepted him in transfer to consider AVR +/- PCI. 3. CAD: Continue aspirin 81 mg daily. Continue high-intensity statin therapy. Continue beta-victoriano. Would recommend to discontinue Celebrex. Consider t reatment options for severe mid RCA CAD at the time of aortic valve replacement evaluation at tertiary care center. He has been accepted at [facility]. 4. Hypertension: Blood pressure has been more consistently hypertensive today. Optimize blood pressure as able. Continue increased dose of beta-victoriano. At this point, may be more prudent to first be evaluated [facility] for aortic valve replacement before making other adjustments. 5. Fall: He has denied syncope as the cause of his fall, but given his dementia and poor memory, it is difficult to know if he had true syncope or truly lost consciousness after striking his head. Plan as above. 6. Disposition: Recommend transferred to [facility] for evaluation of aortic valve replacement with possibility of revascularization as noted above. Plan of care has been discussed with Dr. Jennings of the primary hospitalist service as well as [facility] physicians as noted above. It has been requested that the images of the echo and cardiac catheterization be copied and placed on the chart for transfer. Subjective He denies chest discomfort, shortness of breath, syncope, near-syncope, palpitations, or edema, however he is a poor historian given his Alzheimer's dementia. His and daughter were present at the bedside and they both agreed that his coughing has largely subsided today and overall he has looked better from a breathing standpoint. They did wish to pursue cardiac catheterization today. He was seen earlier today and then scheduled for cardiac catheterization this afternoon. Review of systems: As above. Physical Exam Physical Exam: Gen.: No acute distress. Alert. HEENT: Anicteric sclera. Neck: Thick neck. Cardiac: Regular. Normal S1-S2. 2/6 at least mid to late peaking systolic ejection murmur heard best at right upper sternal border. No rubs or gallops. Pulmonary: Decreased breath sounds, otherwise clear. Abdomen: Soft, nontender, with normoactive bowel sounds. No bruits noted. Extremities: 2+ radial pulses bilaterally. No edema or cyanosis. Psychiatric: Affect appears appropriate. Results & Data Vital Signs (Past 12 Hours) Vital Signs Temp Pulse Pulse Pulse Resp BP BP 12/16/19 15:35 62 18 159/86 H 12/16/19 15:30 62 18 157/94 H 12/16/19 15:25 62 18 160/89 H 12/16/19 15:20 62 18 150/90 H 12/16/19 14:00 60 18 156/86 H 12/16/19 11:39 36.8 C 55 L 18 145/89 H 12/16/19 11:06 94 H 19 12/16/19 10:00 57 L 12/16/19 07:37 36.6 C 60 18 169/83 H 12/16/19 07:11 62 19 12/16/19 04:36 36.5 C 62 18 145/79 H Pulse Ox 12/16/19 15:35 90 12/16/19 15:30 90 12/16/19 15:25 90 12/16/19 15:20 90 12/16/19 14:00 96 12/16/19 11:39 96 12/16/19 11:06 96 12/16/19 10:00 12/16/19 07:37 96 12/16/19 07:11 96 12/16/19 04:36 94 Laboratory Results Laboratory Results - last 24 hr 12/15/19 12/15/19 12/16/19 16:04 19:38 06:29 POC Glucose 196 H 261 H 143 H 12/16/19 11:22 POC Glucose 151 H Diagnostic Findings Telemetry personally reviewed: Sinus rhythm. No arrhythmia. Cardiac catheterization 12/16/2019: Mid LAD 50-60%. Proximal RCA 30%. Early mid RCA 20-30%. Mid RCA long segment 80-90% with JAIRON 3 flow. Medications Administered Current Inpatient Medications Acetaminophen (Tylenol) 650 mg PO Q4H PRN PRN Reason: pain/fever Stop: 01/11/20 13:43 Albuterol (Duoneb) 3 ml NEB Q2H PRN PRN Reason: Shortness of Breath/Wheezing Stop: 01/11/20 13:43 Albuterol (Duoneb) 3 ml NEB QIDR [facility] Stop: 01/11/20 14:59 Last Admin: 12/16/19 15:29 Dose: Not Given Documented by: Aspirin (Ecotrin Ectab) 81 mg PO DAILY [facility] Stop: 01/12/20 08:59 Last Admin: 12/16/19 08:36 Dose: 81 mg Documented by: Atorvastatin Calcium (Lipitor) 40 mg PO DAILY [facility] Stop: 01/12/20 08:59 Last Admin: 12/16/19 08:35 Dose: 40 mg Documented by: Celecoxib (Celebrex) 200 mg PO BID [facility] Stop: 01/11/20 20:59 Last Admin: 12/16/19 08:35 Dose: 200 mg Documented by: Cyanocobalamin (Vitamin B-12) 1,000 mcg PO BID [facility] Stop: 01/11/20 20:59 Last Admin: 12/16/19 08:36 Dose: 1,000 mcg Documented by: Dextrose (Dextrose 50%) 25 - 50 ml IV UD PRN; Protocol PRN Reason: Hypoglycemia Protocol Stop: 01/11/20 13:43 Doxycycline Hyclate (Vibramycin) 100 mg PO BID [facility]; Protocol Stop: 12/19/19 20:59 Last Admin: 12/16/19 08:36 Dose: 100 mg Documented by: Enoxaparin Sodium (Lovenox) 40 mg SQ Q24H [facility] Stop: 01/11/20 13:43 Last Admin: 12/15/19 20:52 Dose: 40 mg Documented by: Escitalopram Oxalate (Lexapro Tab) 10 mg PO DAILY [facility] Stop: 01/12/20 08:59 Last Admin: 12/16/19 08:37 Dose: 10 mg Documented by: Fluticasone Propionate (Flonase) 1 sprays NA DAILY PRN PRN Reason: Nasal Congestion Stop: 01/11/20 13:43 Fluticasone/Vilanterol (Breo Ellipta 100/25 Mcg Inh) 1 puffs INH HS [facility]; Protocol Stop: 01/14/20 20:59 Last Admin: 12/15/19 20:39 Dose: 1 puffs Documented by: Glucagon (Glucagen) 1 mg SQ UD PRN; Protocol PRN Reason: Hypoglycemia Protocol Stop: 01/11/20 13:43 Glucose (Dex4 Glucose) 4 - 8 tabs PO UD PRN; Protocol PRN Reason: Hypoglycemia Protocol Stop: 01/11/20 13:43 Glucose (Glucose 40%) 15 - 30 gm PO UD PRN; Protocol PRN Reason: Hypoglycemia Protocol Stop: 01/11/20 13:43 Guaifenesin (Mucinex) 1,200 mg PO BID [facility] Stop: 01/11/20 20:59 Last Admin: 12/16/19 08:37 Dose: 1,200 mg Documented by: Hydroxychloroquine Sulfate (Plaquenil) 200 mg PO BID [facility] Stop: 01/11/20 20:59 Last Admin: 12/16/19 08:35 Dose: 200 mg Documented by: Sodium Chloride (Nss 1000ml) 1,000 mls @ 100 mls/hr IV .Q10H [facility] Stop: 12/16/19 18:00 Insulin Aspart (Novolog Flexpen) 0 units SC ACHS [facility] Stop: 01/11/20 16:29 Last Admin: 12/16/19 11:23 Dose: Not Given Documented by: Lidocaine (Lidoderm 5%) 1 patch TD QAM [facility] Stop: 01/12/20 14:59 Last Admin: 12/16/19 08:34 Dose: 1 patch Documented by: Loratadine (Claritin) 10 mg PO DAILY [facility] Stop: 01/12/20 08:59 Last Admin: 12/16/19 08:36 Dose: 10 mg Documented by: Magnesium Oxide (Mag-Ox) 400 mg PO DAILY@1200 [facility] Stop: 01/12/20 11:59 Last Admin: 12/16/19 11:24 Dose: 400 mg Documented by: Metoprolol Tartrate (Lopressor) 100 mg PO BID [facility] Stop: 01/14/20 08:59 Last Admin: 12/16/19 08:36 Dose: 100 mg Documented by: Miscellaneous (Carbohydrates For Hypoglycemia) 15 - 30 gm PO UD PRN PRN Reason: Hypoglycemia Protocol Stop: 01/11/20 13:43 Miscellaneous (Remove Lidoderm Patch) 1 ea N/A DAILY@2100 [facility] Stop: 01/12/20 20:59 Last Admin: 12/15/19 20:43 Dose: 1 ea Documented by: Montelukast Sodium (Singulair) 10 mg PO QPM [facility] Stop: 01/11/20 20:59 Last Admin: 12/15/19 20:45 Dose: 10 mg Documented by: Multivitamins (Multivitamin Tab) 1 tab PO DAILY@1200 [facility] Stop: 01/12/20 11:59 Last Admin: 12/16/19 11:22 Dose: 1 tab Documented by: Neomycin/Polymyxin/Bacitracin (Neosporin Oint) 1 appln EXT PRN PRN PRN Reason: other Stop: 01/12/20 21:40 Last Admin: 12/14/19 00:56 Dose: 1 appln Documented by: Nitroglycerin (Nitrostat) 0.4 mg SL Q5M PRN PRN Reason: chest pain Stop: 01/11/20 13:43 Oxcarbazepine (Trileptal) 150 mg PO DAILY [facility] Stop: 01/12/20 08:59 Last Admin: 12/16/19 08:34 Dose: 150 mg Documented by: Pantoprazole Sodium (Protonix) 40 mg PO DAILY [facility] Stop: 01/12/20 08:59 Last Admin: 12/16/19 08:36 Dose: 40 mg Documented by: Prednisone (Prednisone) 40 mg PO DAILY [facility] Stop: 01/15/20 08:59 Last Admin: 12/16/19 08:34 Dose: 40 mg Documented by: Ropinirole HCl (Requip) 0.5 mg PO QPM [facility] Stop: 01/11/20 20:59 Last Admin: 12/15/19 20:44 Dose: 0.5 mg Documented by: Tramadol HCl (Ultram) 50 mg PO Q4H PRN PRN Reason: Pain Stop: 01/11/20 13:43 Last Admin: 12/12/19 21:27 Dose: 50 mg Documented by: Umeclidinium [place] (Incruse Ellipta) 1 puffs INH DAILY [facility] Stop: 01/12/20 08:59 Last Admin: 12/16/19 08:37 Dose: 1 puffs Documented by: Vitamin D (Vitamin D3) 1,000 units PO BID [facility] Stop: 01/11/20 20:59 Last Admin: 12/16/19 08:37 Dose: 1,000 units Documented by: PG Care Time/CCT Total # of Minutes Spent Total Time Spent with Patient: Total time spent is greater than 50% in coordination of care (as documented) at patient's floor/unit and/or counseling patient:
[2019-12-16] MEDS: FLUTICASONE/VILANTEROL 100/25MCG 14 PUFFS/INHALER INH SCH (20:17)
[2019-12-16] MEDS: MONTELUKAST SODIUM 10 MG TABLET PO SCH (20:18)
[2019-12-16] MEDS: ROPINIROLE HCL 0.25 MG TABLET PO SCH (20:18)
--- NOTE | 2019-12-16 20:35 | Hospitalist Progress Note ---
Date of Service December 16, 2019 Assessment & Plan (1) Fall: - Reports likely mechanical fall resulting in falling down 5-6 steps and suspected LOC from striking head. States he crawled to the bathroom. Denies H/O symptoms prior to fall but states it was rapid but does feel like it was his l egs. - He has been feeling under the weather and possibly some dehydration. He does report intermittent dizziness in the past but never syncope; NSR on monitor - Head CT - negative for acute processes -- No neurological deficits appreciated - Echo - EF 65-70%, no wall motion abnormality, Severe (further advanced from previous echo), mild-moderate pulmonary HTN -- Appears he chronically has had issues with SOB on exertion and states he will go pale and diaphoretic after a few minutes of slow walking around stores and such - this could be his underlying lung issues vs his aortic valve -- Discussed again and patient reveals that he also gets a burning sensation in the chest with walking and even felt this when doing his 2 step here; he states this is chronic and never occurs at rest - Do wonder if is contributing to his exertional issues? What he is describing may be angina but is not acute - he states he has used NTG in the past once and it did resolve it - Troponins negative - Cardiac cath on 12/16 revealed severe CAD in mid RCA - Cardiology following - patient has been accepted in transfer to [facility] to consider AVR and possible CAD intervention - accepting provider is Dr. Cordero and anticipating bed tomorrow (2) COPD exacerbation: - IMPROVING; Possibly mild exacerbation - given wheezing and change in sputum production -- Is continuing to have some mild blood-tinge sputum/hemoptysis but improving - consider CTA if further symptoms -- Unlikely PE given lack of tachycardia, hypoxia, respiratory distress - Continue Doxycycline and Prednisone with taper - is on chronic steroids daily - Continue Duonebs; Mucinex BID - Follows with [facility] Pulmonology (3) Diabetes mellitus: - Continue SSI - and monitor BSG (4) Obstructive sleep apnea: Continue CPAP nightly as per outpatient orders Disposition: Does not need O2 per 2-step; awaiting transfer to [facility] Subjective Patient reports overall feeling well today. Cough is reducing. Patient underwent cardiac cath today revealing severe CAD in mid RCA and has been accepted to [facility] for consideration for AVR/CAD intervention. Verbalizes no new complaints at this time. Assessment was prior to cardiac catheterization. Review of Systems Constitutional: no fever and no chills Respiratory: + cough (improving today) and + dyspnea on exertion; no hemoptysis and no pain on inspiration Cardiovascular: + chest pain with activity (improving); no chest pain at rest, no radiating jaw, neck or arm pain, no lightheadedness, no syncope and no edema Gastrointestinal: no abdominal pain, no nausea, no vomiting, no constipation and no diarrhea/loose stools Genitourinary: no dysuria Musculoskeletal: L sided rib pain Physical Exam Constitutional: WD/WN, vitals as above no acute distress and not ill appearing Eyes: + anicteric sclerae ENMT: Ears: no hearing impairment Neck: trachea midline Respiratory: normal respiratory effort Auscultation: + diminished lung sounds (bases b/l) Cardiovascular: RRR, no murmur, no edema Rate/Rhythm: regular rate and regular rhythm Heart Sounds: + murmur Vessels: no JVD Chest (Breasts): Chest: normal inspection of chest Gastrointestinal (Abdomen): Inspection/Auscultation: + abdomen distended (baseline) and normal bowel sounds Percussion/Palpation: abdomen soft; abdomen nontender Musculoskeletal: Head/Neck/Chest: normocephalic and head atraumatic Skin: no rashes, warm and dry Neurologic: moves all extremities Psychiatric: A+Ox3, euthymic affect Results & Data Vital Signs (Past 12 Hours) Vital Signs Temp Pulse Pulse Pulse Resp BP BP 12/16/19 19:55 66 18 12/16/19 19:18 36.8 C 66 18 156/87 H 12/16/19 18:19 59 L 18 124/75 12/16/19 17:50 66 18 131/78 12/16/19 17:20 68 18 126/75 12/16/19 17:05 73 20 137/81 12/16/19 16:57 63 12/16/19 16:50 62 18 156/70 H 12/16/19 16:35 58 L 18 157/92 H 12/16/19 16:20 61 18 161/90 H 12/16/19 16:05 36.5 C 61 18 151/89 H 12/16/19 15:35 62 18 159/86 H 12/16/19 15:30 62 18 157/94 H 12/16/19 15:25 62 18 160/89 H 12/16/19 15:20 62 18 150/90 H 12/16/19 14:00 60 18 156/86 H 12/16/19 11:39 36.8 C 55 L 18 145/89 H 12/16/19 11:06 94 H 19 12/16/19 10:00 57 L Pulse Ox 12/16/19 19:55 94 12/16/19 19:18 94 12/16/19 18:19 90 12/16/19 17:50 90 12/16/19 17:20 91 12/16/19 17:05 95 12/16/19 16:57 12/16/19 16:50 93 12/16/19 16:35 92 12/16/19 16:20 90 12/16/19 16:05 93 12/16/19 15:35 90 12/16/19 15:30 90 12/16/19 15:25 90 12/16/19 15:20 90 12/16/19 14:00 96 12/16/19 11:39 96 12/16/19 11:06 96 12/16/19 10:00 PG Care Time/CCT Total # of Minutes Spent Total Time Spent with Patient: Total time spent is greater than 50% in coordination of care (as documented) at patient's floor/unit and/or counseling patient:
[2019-12-16] MEDS: ENOXAPARIN INJ 40 MG/0.4 ML SYR SQ SCH (20:50)
[2019-12-17] MEDS: ALBUT/IPRATROP 3MG/0.5MG NEB 3 ML VIAL NEB SCH ×4 (07:03→19:07)
[2019-12-17] MEDS: INSULIN ASPART 100 UNITS/ML 3 ML PEN SC SCH ×4 (07:57→20:32)
[2019-12-17] MEDS: HYDROXYCHLOROQUINE SULFATE 200 MG TAB PO SCH ×2 (08:15→20:22)
[2019-12-17] MEDS: predniSONE 20 MG TAB PO SCH (08:15)
[2019-12-17] MEDS: METOPROLOL TARTRATE 100 MG TAB PO SCH ×2 (08:15→20:20)
[2019-12-17] MEDS: PANTOprazole 40 MG TAB PO SCH (08:15)
[2019-12-17] MEDS: ASPIRIN 81 MG ECTAB PO SCH (08:15)
[2019-12-17] MEDS: UMECLIDINIUM BROMIDE 62.5MCG/BLISTER 7 PUFFS/INHALER INH SCH (08:15)
[2019-12-17] MEDS: CeleBREX 200 MG CAP PO SCH ×2 (08:15→20:20)
[2019-12-17] MEDS: OXcarbazepine 150 MG TABLET PO SCH (08:15)
[2019-12-17] MEDS: CHOLECALCIFEROL 1,000 UNITS 25 MCG TAB PO SCH ×2 (08:16→20:26)
[2019-12-17] MEDS: LIDOCAINE 5% 1 PATCH TD SCH (08:16)
[2019-12-17] MEDS: guaiFENesin 600 MG TABCR PO SCH ×2 (08:16→20:21)
[2019-12-17] MEDS: ATORVASTATIN 40 MG TAB PO SCH (08:16)
[2019-12-17] MEDS: ESCITALOPRAM OXALATE 10 MG TAB PO SCH (08:16)
[2019-12-17] MEDS: LORATADINE 10 MG TAB PO SCH (08:17)
[2019-12-17] MEDS: CYANOCOBALAMIN 500 MCG TABLET (VITAMIN B-12) PO SCH ×2 (08:17→20:25)
[2019-12-17] MEDS: DOXYCYCLINE HYCLATE 100 MG CAP PO SCH ×2 (08:17→20:24)
--- NOTE | 2019-12-17 11:58 | Cardiology Progress Note ---
Date of Service December 17, 2019 Assessment & Plan (1) Aortic stenosis: (2) Chest pain, exertional: (3) CAD (coronary artery disease): (4) KIRKLAND (dyspnea on exertion): (5) Essential hypertension: ASSESSMENT/PLAN: 1. CAD: He was found to have severe CAD involving the mid RCA. His had described symptoms that he was experiencing, consistent with exertional angina. Continue anti-platelet therapy, high-intensity statin therapy, and beta-victoriano. Discontinue Celebrex. He will be evaluated at [facility] for potential of aortic valve replacement and revascularization of RCA. 2. Exertional angina: Likely due to severe aortic stenosis and CAD as noted on cardiac catheterization. Continue increased dose of beta-victoriano which he is tolerating well. Optimize blood pressure but avoid significant vasodilators in the setting of severe aortic stenosis. 3. Aortic stenosis: Severe on current echo. Cardiac catheterization performed on 12/16/2019. CT surgery at [facility] was contacted, Dr. Cordero, as well as Cardiology, Dr. Rodriguez. They have accepted him in transfer to consider AVR +/- PCI. 4. Hypertension: Blood pressure normotensive to mildly hypertensive. Continue titrated dose of beta-victoriano. Avoid potent vasodilators given severe aortic stenosis. 5. Fall: He has denied syncope as the cause of his fall, but given his dementia and poor memory, it is difficult to know if he had true syncope or truly lost consciousness after striking his head. Plan as above. 6. Disposition: Pending transfer to [facility] for evaluation of aortic valve replacement with possible RCA PCI. Subjective He underwent cardiac catheterization yesterday and tolerated the procedure well. He has been accepted [facility] in transfer for aortic valve replacement and consideration of revascularization of his RCA. He has not yet been transferred due to bed availability. He was alone in his hospital room today and denies chest pain, shortness of breath, syncope, near-syncope, palpitations, edema, and bleeding, however he is a poor historian. Review of systems: As above. Physical Exam Physical Exam: Gen.: No acute distress. Alert. HEENT: Anicteric sclera. Neck: Thick neck. Cardiac: Regular. Normal S1-S2. 2/6 at least mid to late peaking systolic ejection murmur heard best at right upper sternal border. No rubs or gallops. Pulmonary: Decreased breath sounds. Clear to auscultation bilaterally without wheezes, rales, or rhonchi. Abdomen: Soft, nontender, with normoactive bowel sounds. No bruits noted. Extremities: 2+ radial pulses bilaterally. Right radial cath site is clean, dry, and intact without erythema or discharge. No edema or cyanosis. Psychiatric: Affect appears appropriate. Results & Data Vital Signs (Past 12 Hours) Vital Signs Temp Pulse Pulse Pulse Resp BP BP 12/17/19 11:23 78 18 12/17/19 08:00 54 L 68 12/17/19 07:42 36.6 C 56 L 18 156/77 H 12/17/19 07:03 77 19 12/17/19 03:53 36.4 C L 55 L 18 158/99 H 12/17/19 03:05 56 L 17 Pulse Ox 12/17/19 11:23 94 12/17/19 08:00 12/17/19 07:42 96 12/17/19 07:03 94 12/17/19 03:53 96 12/17/19 03:05 96 Laboratory Results Laboratory Results - last 24 hr 12/16/19 12/16/19 12/17/19 16:05 20:38 07:03 POC Glucose 210 H 249 H 127 H 12/17/19 11:16 POC Glucose 224 H Diagnostic Findings Cardiac catheterization 12/16/2019: Coronary angiography: 1. Left main coronary: The LMCA is short in duration but without significant CAD. 2. Left anterior descending: LAD is a medium to large caliber vessel that extends to the apex. Mid LAD 50 to 60% stenosis. JAIRON-3 flow. Small D1 and small D2 without significant CAD. 3. Circumflex: The circumflex is a medium to large caliber vessel. Distally, the circumflex extends as a small caliber vessel. Medium to large caliber OM1. No significant CAD within the circumflex system. 4. Right coronary artery: The RCA is dominant. Proximal RCA 30%. Early mid RCA 20 to 30%. Mid RCA long segment 80 to 90% stenosis with JAIRON-[address] and small [address] without significant CAD. Telemetry personally reviewed: Sinus rhythm. No arrhythmia. Medications Administered Current Inpatient Medications Acetaminophen (Tylenol) 650 mg PO Q4H PRN PRN Reason: pain/fever Stop: 01/11/20 13:43 Albuterol (Duoneb) 3 ml NEB Q2H PRN PRN Reason: Shortness of Breath/Wheezing Stop: 01/11/20 13:43 Albuterol (Duoneb) 3 ml NEB QIDR [facility] Stop: 01/11/20 14:59 Last Admin: 12/17/19 11:22 Dose: 3 ml Documented by: Aspirin (Ecotrin Ectab) 81 mg PO DAILY [facility] Stop: 01/12/20 08:59 Last Admin: 12/17/19 08:15 Dose: 81 mg Documented by: Atorvastatin Calcium (Lipitor) 40 mg PO DAILY [facility] Stop: 01/12/20 08:59 Last Admin: 12/17/19 08:16 Dose: 40 mg Documented by: Celecoxib (Celebrex) 200 mg PO BID [facility] Stop: 01/11/20 20:59 Last Admin: 12/17/19 08:15 Dose: 200 mg Documented by: Cyanocobalamin (Vitamin B-12) 1,000 mcg PO BID [facility] Stop: 01/11/20 20:59 Last Admin: 12/17/19 08:17 Dose: 1,000 mcg Documented by: Dextrose (Dextrose 50%) 25 - 50 ml IV UD PRN; Protocol PRN Reason: Hypoglycemia Protocol Stop: 01/11/20 13:43 Doxycycline Hyclate (Vibramycin) 100 mg PO BID [facility]; Protocol Stop: 12/19/19 20:59 Last Admin: 12/17/19 08:17 Dose: 100 mg Documented by: Enoxaparin Sodium (Lovenox) 40 mg SQ Q24H [facility] Stop: 01/11/20 13:43 Last Admin: 12/16/19 20:50 Dose: 40 mg Documented by: Escitalopram Oxalate (Lexapro Tab) 10 mg PO DAILY [facility] Stop: 01/12/20 08:59 Last Admin: 12/17/19 08:16 Dose: 10 mg Documented by: Fluticasone Propionate (Flonase) 1 sprays NA DAILY PRN PRN Reason: Nasal Congestion Stop: 01/11/20 13:43 Fluticasone/Vilanterol (Breo Ellipta 100/25 Mcg Inh) 1 puffs INH HS [facility]; Protocol Stop: 01/14/20 20:59 Last Admin: 12/16/19 20:17 Dose: 1 puffs Documented by: Glucagon (Glucagen) 1 mg SQ UD PRN; Protocol PRN Reason: Hypoglycemia Protocol Stop: 01/11/20 13:43 Glucose (Dex4 Glucose) 4 - 8 tabs PO UD PRN; Protocol PRN Reason: Hypoglycemia Protocol Stop: 01/11/20 13:43 Glucose (Glucose 40%) 15 - 30 gm PO UD PRN; Protocol PRN Reason: Hypoglycemia Protocol Stop: 01/11/20 13:43 Guaifenesin (Mucinex) 1,200 mg PO BID [facility] Stop: 01/11/20 20:59 Last Admin: 12/17/19 08:16 Dose: 1,200 mg Documented by: Hydroxychloroquine Sulfate (Plaquenil) 200 mg PO BID [facility] Stop: 01/11/20 20:59 Last Admin: 12/17/19 08:15 Dose: 200 mg Documented by: Insulin Aspart (Novolog Flexpen) 0 units SC ACHS [facility] Stop: 01/11/20 16:29 Last Admin: 12/17/19 07:57 Dose: 3 units Documented by: Lidocaine (Lidoderm 5%) 1 patch TD QAM [facility] Stop: 01/12/20 14:59 Last Admin: 12/17/19 08:16 Dose: 1 patch Documented by: Loratadine (Claritin) 10 mg PO DAILY [facility] Stop: 01/12/20 08:59 Last Admin: 12/17/19 08:17 Dose: 10 mg Documented by: Magnesium Oxide (Mag-Ox) 400 mg PO DAILY@1200 [facility] Stop: 01/12/20 11:59 Last Admin: 12/16/19 11:24 Dose: 400 mg Documented by: Metoprolol Tartrate (Lopressor) 100 mg PO BID [facility] Stop: 01/14/20 08:59 Last Admin: 12/17/19 08:15 Dose: 100 mg Documented by: Miscellaneous (Carbohydrates For Hypoglycemia) 15 - 30 gm PO UD PRN PRN Reason: Hypoglycemia Protocol Stop: 01/11/20 13:43 Miscellaneous (Remove Lidoderm Patch) 1 ea N/A DAILY@2100 [facility] Stop: 01/12/20 20:59 Last Admin: 12/16/19 20:49 Dose: 1 ea Documented by: Montelukast Sodium (Singulair) 10 mg PO QPM [facility] Stop: 01/11/20 20:59 Last Admin: 12/16/19 20:18 Dose: 10 mg Documented by: Multivitamins (Multivitamin Tab) 1 tab PO DAILY@1200 [facility] Stop: 01/12/20 11:59 Last Admin: 12/16/19 11:22 Dose: 1 tab Documented by: Neomycin/Polymyxin/Bacitracin (Neosporin Oint) 1 appln EXT PRN PRN PRN Reason: other Stop: 01/12/20 21:40 Last Admin: 12/14/19 00:56 Dose: 1 appln Documented by: Nitroglycerin (Nitrostat) 0.4 mg SL Q5M PRN PRN Reason: chest pain Stop: 01/11/20 13:43 Oxcarbazepine (Trileptal) 150 mg PO DAILY [facility] Stop: 01/12/20 08:59 Last Admin: 12/17/19 08:15 Dose: 150 mg Documented by: Pantoprazole Sodium (Protonix) 40 mg PO DAILY [facility] Stop: 01/12/20 08:59 Last Admin: 12/17/19 08:15 Dose: 40 mg Documented by: Prednisone (Prednisone) 20 mg PO DAILY [facility] Stop: 12/20/19 08:59 Last Admin: 12/17/19 08:15 Dose: 20 mg Documented by: Ropinirole HCl (Requip) 0.5 mg PO QPM [facility] Stop: 01/11/20 20:59 Last Admin: 12/16/19 20:18 Dose: 0.5 mg Documented by: Tramadol HCl (Ultram) 50 mg PO Q4H PRN PRN Reason: Pain Stop: 01/11/20 13:43 Last Admin: 12/12/19 21:27 Dose: 50 mg Documented by: Umeclidinium [place] (Incruse Ellipta) 1 puffs INH DAILY [facility] Stop: 01/12/20 08:59 Last Admin: 12/17/19 08:15 Dose: 1 puffs Documented by: Vitamin D (Vitamin D3) 1,000 units PO BID [facility] Stop: 01/11/20 20:59 Last Admin: 12/17/19 08:16 Dose: 1,000 units Documented by: PG Care Time/CCT Total # of Minutes Spent Total Time Spent with Patient: Total time spent is greater than 50% in coordination of care (as documented) at patient's floor/unit and/or counseling patient: Coding Level of Care Code 81042 Subseq Hosp Care Lvl 3 Diagnoses Aortic stenosis I35.0 Chest pain, exertional R07.9 CAD (coronary artery disease) I25.10 KIRKLAND (dyspnea on exertion) R06.09 Essential hypertension I10
[2019-12-17] MEDS: MULTIVITAMIN TAB PO SCH (12:01)
[2019-12-17] MEDS: MAGNESIUM OXIDE 400 MG TAB PO SCH (12:01)
[2019-12-17] MEDS: ROPINIROLE HCL 0.25 MG TABLET PO SCH (20:23)
[2019-12-17] MEDS: MONTELUKAST SODIUM 10 MG TABLET PO SCH (20:24)
[2019-12-17] MEDS: ENOXAPARIN INJ 40 MG/0.4 ML SYR SQ SCH (20:27)
[2019-12-17] MEDS: FLUTICASONE/VILANTEROL 100/25MCG 14 PUFFS/INHALER INH SCH (21:45)
--- NOTE | 2019-12-17 21:58 | Hospitalist Progress Note ---
Date of Service December 17, 2019 Assessment & Plan (1) Fall: - Reports likely mechanical fall resulting in falling down 5-6 steps and suspected LOC from striking head. States he crawled to the bathroom. Denies H/O symptoms prior to fall but states it was rapid but does feel like it was his l egs. - He has been feeling under the weather and possibly some dehydration. He does report intermittent dizziness in the past but never syncope; NSR on monitor - Head CT - negative for acute processes -- No neurological deficits appreciated - Echo - EF 65-70%, no wall motion abnormality, Severe (further advanced from previous echo), mild-moderate pulmonary HTN most likely his severe caused the fall, likely syncope since it was unwitnessed he admits that he cannot really exert himself at all, gets short of breath, chest pressure - Cardiac cath on 12/16 revealed severe CAD in mid RCA - Cardiology following - patient has been accepted in transfer [place] [facility] [place] and possible CAD intervention - accepting provider is Dr. Cordero should have bed tomorrow (2) COPD exacerbation: - IMPROVING; Possibly mild exacerbation - given wheezing and change in sputum production -- no longer with blood tinged sputum, minimal cough today -- Unlikely PE given lack of tachycardia, hypoxia, respiratory distress - Continue Doxycycline and Prednisone with taper - is on chronic steroids daily - Continue Duonebs; Mucinex BID (3) Diabetes mellitus: - Continue SSI monitor for hypoglycemia, no episodes (4) Obstructive sleep apnea: Continue CPAP nightly as per outpatient orders Disposition: Does not need O2 per 2-step; awaiting transfer to [facility] [place] Subjective patient feeling fine today resting in bed, no angina or dyspnea eating well, all of his meals no nausea, no constipation, no urinary symptoms, no fever/chills community health education coordinator called [place], likely no beds until tomorrow Review of Systems Review of Systems: All systems reviewed & are unremarkable except as noted in HPI & below Physical Exam Constitutional: WD/WN, vitals as above Eyes: PERRL, conjunctivae normal, anicteric sclerae ENMT: external ear and nose normal, oropharynx normal Respiratory: normal respiratory effort, lungs clear to auscultation Cardiovascular: Rate/Rhythm: regular rate and regular rhythm Heart Sounds: normal S1, normal S2 and + murmur Extremities: normal capillary refill; no edema Gastrointestinal (Abdomen): normal bowel sounds, soft, nontender, no hepatosplenomegaly Musculoskeletal: no cyanosis or clubbing, extremities motor strength 5/5 Skin: no rashes, warm and dry Neurologic: patellar DTR's 2+ bilat, sensation intact and PERRL, EOMI, acc ommodation nl, no face palsy, no dysarthria Psychiatric: A+Ox3, euthymic affect Lymphatic: no cervical or axillary lymphadenopathy Results & Data Vital Signs (Past 12 Hours) Vital Signs Temp Pulse Pulse Pulse Resp BP BP 12/17/19 20:26 36.7 C 64 19 152/84 H 12/17/19 19:07 55 L 16 12/17/19 15:18 36.9 C 62 19 154/91 H 12/17/19 15:00 62 12/17/19 14:58 57 L 12/17/19 12:15 37.0 C 64 20 168/82 H 12/17/19 11:23 78 18 Pulse Ox 12/17/19 20:26 94 12/17/19 19:07 96 12/17/19 15:18 93 12/17/19 15:00 12/17/19 14:58 95 12/17/19 12:15 92 12/17/19 11:23 94 Laboratory Results Laboratory Results - last 24 hr 12/17/19 12/17/19 12/17/19 07:03 11:16 16:40 POC Glucose 127 H 224 H 197 H 12/17/19 20:24 POC Glucose 181 H Medications Administered Current Inpatient Medications Acetaminophen (Tylenol) 650 mg PO Q4H PRN PRN Reason: pain/fever Stop: 01/11/20 13:43 Albuterol (Duoneb) 3 ml NEB Q2H PRN PRN Reason: Shortness of Breath/Wheezing Stop: 01/11/20 13:43 Albuterol (Duoneb) [address] [facility] Stop: 01/11/20 14:59 Last Admin: 12/17/19 19:07 Dose: 3 ml Documented by: Aspirin (Ecotrin Ectab) [address] [facility] Stop: 01/12/20 08:59 Last Admin: 12/17/19 08:15 Dose: 81 mg Documented by: Atorvastatin Calcium (Lipitor) [address] [facility] Stop: 01/12/20 08:59 Last Admin: 12/17/19 08:16 Dose: 40 mg Documented by: Celecoxib (Celebrex) [address] [facility] Stop: 01/11/20 20:59 Last Admin: 12/17/19 20:20 Dose: Not Given Documented by: Cyanocobalamin (Vitamin B-12) 1,[address] [facility] Stop: 01/11/20 20:59 Last Admin: 12/17/19 20:25 Dose: 1,000 mcg Documented by: Dextrose (Dextrose 50%) 25 - 50 ml IV UD PRN; Protocol PRN Reason: Hypoglycemia Protocol Stop: 01/11/20 13:43 Doxycycline Hyclate (Vibramycin) [address] [facility]; Protocol Stop: 12/19/19 20:59 Last Admin: 12/17/19 20:24 Dose: 100 mg Documented by: Enoxaparin Sodium (Lovenox) [address] [facility] Stop: 01/11/20 13:43 Last Admin: 12/17/19 20:27 Dose: 40 mg Documented by: Escitalopram Oxalate (Lexapro Tab) [address] [facility] Stop: 01/12/20 08:59 Last Admin: 12/17/19 08:16 Dose: 10 mg Documented by: Fluticasone Propionate (Flonase) 1 sprays NA DAILY PRN PRN Reason: Nasal Congestion Stop: 01/11/20 13:43 Fluticasone/Vilanterol (Breo Ellipta 100/25 Mcg Inh) [address] [facility]; Protocol Stop: 01/14/20 20:59 Last Admin: 12/17/19 21:45 Dose: 1 puffs Documented by: Glucagon (Glucagen) 1 mg SQ UD PRN; Protocol PRN Reason: Hypoglycemia Protocol Stop: 01/11/20 13:43 Glucose (Dex4 Glucose) 4 - 8 tabs PO UD PRN; Protocol PRN Reason: Hypoglycemia Protocol Stop: 01/11/20 13:43 Glucose (Glucose 40%) 15 - 30 gm PO UD PRN; Protocol PRN Reason: Hypoglycemia Protocol Stop: 01/11/20 13:43 Guaifenesin (Mucinex) 1,[address] [facility] Stop: 01/11/20 20:59 Last Admin: 12/17/19 20:21 Dose: 1,200 mg Documented by: Hydroxychloroquine Sulfate (Plaquenil) [address] [facility] Stop: 01/11/20 20:59 Last Admin: 12/17/19 20:22 Dose: 200 mg Documented by: Insulin Aspart (Novolog Flexpen) [address] [facility] Stop: 01/11/20 16:29 Last Admin: 12/17/19 20:32 Dose: 2 units Documented by: Lidocaine (Lidoderm 5%) [address] [facility] Stop: 01/12/20 14:59 Last Admin: 12/17/19 08:16 Dose: 1 patch Documented by: Loratadine (Claritin) [address] [facility] Stop: 01/12/20 08:59 Last Admin: 12/17/19 08:17 Dose: 10 mg Documented by: Magnesium Oxide (Mag-Ox) 400 mg PO DAILY@1200 [facility] Stop: 01/12/20 11:59 Last Admin: 12/17/19 12:01 Dose: 400 mg Documented by: Metoprolol Tartrate (Lopressor) [address] [facility] Stop: 01/14/20 08:59 Last Admin: 12/17/19 20:20 Dose: 100 mg Documented by: Miscellaneous (Carbohydrates For Hypoglycemia) 15 - 30 gm PO UD PRN PRN Reason: Hypoglycemia Protocol Stop: 01/11/20 13:43 Miscellaneous (Remove Lidoderm Patch) 1 ea N/A DAILY@2100 [facility] Stop: 01/12/20 20:59 Last Admin: 12/17/19 20:23 Dose: 1 ea Documented by: Montelukast Sodium (Singulair) [address] [facility] Stop: 01/11/20 20:59 Last Admin: 12/17/19 20:24 Dose: 10 mg Documented by: Multivitamins (Multivitamin Tab) 1 tab PO DAILY@1200 [facility] Stop: 01/12/20 11:59 Last Admin: 12/17/19 12:01 Dose: 1 tab Documented by: Neomycin/Polymyxin/Bacitracin (Neosporin Oint) 1 appln EXT PRN PRN PRN Reason: other Stop: 01/12/20 21:40 Last Admin: 12/14/19 00:56 Dose: 1 appln Documented by: Nitroglycerin (Nitrostat) 0.4 mg SL Q5M PRN PRN Reason: chest pain Stop: 01/11/20 13:43 Oxcarbazepine (Trileptal) 150 mg PO DAILY [facility] Stop: 01/12/20 08:59 Last Admin: 12/17/19 08:15 Dose: 150 mg Documented by: Pantoprazole Sodium (Protonix) 40 mg PO DAILY [facility] Stop: 01/12/20 08:59 Last Admin: 12/17/19 08:15 Dose: 40 mg Documented by: Prednisone (Prednisone) 20 mg PO DAILY [facility] Stop: 12/20/19 08:59 Last Admin: 12/17/19 08:15 Dose: 20 mg Documented by: Ropinirole HCl (Requip) 0.5 mg PO QPM [facility] Stop: 01/11/20 20:59 Last Admin: 12/17/19 20:23 Dose: 0.5 mg Documented by: Tramadol HCl (Ultram) 50 mg PO Q4H PRN PRN Reason: Pain Stop: 01/11/20 13:43 Last Admin: 12/12/19 21:27 Dose: 50 mg Documented by: Umeclidinium [place] (Incruse Ellipta) 1 puffs INH DAILY [facility] Stop: 01/12/20 08:59 Last Admin: 12/17/19 08:15 Dose: 1 puffs Documented by: Vitamin D (Vitamin D3) 1,000 units PO BID [facility] Stop: 01/11/20 20:59 Last Admin: 12/17/19 20:26 Dose: 1,000 units Documented by: PG Care Time/CCT Total # of Minutes Spent Total Time Spent with Patient: Total time spent is greater than 50% in coordination of care (as documented) at patient's floor/unit and/or counseling patient: Coding Level of Care Code 38542 Subseq Hosp Care Lvl 2 Diagnoses Fall W19.XXXA COPD exacerbation J44.1 Diabetes mellitus E11.9 Obstructive sleep apnea G47.33
[2019-12-18] MEDS: ALBUT/IPRATROP 3MG/0.5MG NEB 3 ML VIAL NEB SCH ×4 (07:22→19:19)
[2019-12-18] MEDS: OXcarbazepine 150 MG TABLET PO SCH (08:14)
[2019-12-18] MEDS: UMECLIDINIUM BROMIDE 62.5MCG/BLISTER 7 PUFFS/INHALER INH SCH (08:14)
[2019-12-18] MEDS: HYDROXYCHLOROQUINE SULFATE 200 MG TAB PO SCH ×2 (08:15→20:41)
[2019-12-18] MEDS: predniSONE 20 MG TAB PO SCH (08:15)
[2019-12-18] MEDS: ASPIRIN 81 MG ECTAB PO SCH (08:15)
[2019-12-18] MEDS: METOPROLOL TARTRATE 100 MG TAB PO SCH ×2 (08:15→20:42)
[2019-12-18] MEDS: ATORVASTATIN 40 MG TAB PO SCH (08:15)
[2019-12-18] MEDS: ESCITALOPRAM OXALATE 10 MG TAB PO SCH (08:15)
[2019-12-18] MEDS: CeleBREX 200 MG CAP PO SCH ×2 (08:15→08:24)
[2019-12-18] MEDS: LIDOCAINE 5% 1 PATCH TD SCH (08:16)
[2019-12-18] MEDS: guaiFENesin 600 MG TABCR PO SCH ×2 (08:16→20:41)
[2019-12-18] MEDS: CYANOCOBALAMIN 500 MCG TABLET (VITAMIN B-12) PO SCH ×2 (08:16→20:43)
[2019-12-18] MEDS: LORATADINE 10 MG TAB PO SCH (08:16)
[2019-12-18] MEDS: CHOLECALCIFEROL 1,000 UNITS 25 MCG TAB PO SCH ×2 (08:16→20:40)
[2019-12-18] MEDS: DOXYCYCLINE HYCLATE 100 MG CAP PO SCH ×2 (08:16→20:42)
[2019-12-18] MEDS: INSULIN ASPART 100 UNITS/ML 3 ML PEN SC SCH ×4 (08:17→20:40)
[2019-12-18] MEDS: PANTOprazole 40 MG TAB PO SCH (08:17)
[2019-12-18] MEDS: MAGNESIUM OXIDE 400 MG TAB PO SCH (12:05)
[2019-12-18] MEDS: MULTIVITAMIN TAB PO SCH (12:06)
--- NOTE | 2019-12-18 12:42 | Cardiology Progress Note ---
Date of Service December 18, 2019 Assessment & Plan (1) Aortic stenosis: (2) Chest pain, exertional: (3) CAD (coronary artery disease): (4) [place] (dyspnea on exertion): (5) Essential hypertension: ASSESSMENT/PLAN: 1. CAD: He was found to have severe CAD involving the mid RCA. His had described symptoms that he was experiencing, consistent with exertional angina. Continue anti-platelet therapy, high-intensity statin therapy, and beta-victoriano. Discontinue Celebrex. He is awaiting transfer to [facility] for potential of aortic valve replacement and revascularization of RCA. 2. Exertional angina: Likely due to severe aortic stenosis and CAD as noted on cardiac catheterization. Continue increased dose of beta-victoriano which he is tolerating well. No recent symptoms reported however he is a poor historian. He is also avoiding any significant exertion while hospitalized. 3. Aortic stenosis: Severe on current echo. Cardiac catheterization performed on 12/16/2019. CT surgery at [facility] was contacted, Dr. Cordero, as well as Cardiology, Dr. Rodriguez. They have accepted him in transfer to consider AVR +/- PCI. Awaiting bed at [facility]. 4. Hypertension: Blood pressure remains normotensive to mildly hypertensive. Continue titrated dose of beta-victoriano. Avoid potent vasodilators given severe aortic stenosis. 5. Fall: He has denied syncope as the cause of his fall, but given his dementia and poor memory, it is difficult to know if he had true syncope or truly lost consciousness after striking his head. Plan as above. 6. Disposition: Pending transfer to [facility] for evaluation of aortic valve replacement with possible RCA PCI. If there any questions or concerns over the weekend, please do not hesitate to contact the on-call sports betting manager. On follow- up, he should follow up with his primary sports betting manager, Dr. Dillon. Subjective He denies chest pain, shortness of breath, syncope, near-syncope, palpitations. He is a poor historian and did not recall undergoing cardiac catheterization. His daughter was present at the bedside. He had been experiencing chest discomfort, shortness of breath, and diaphoresis walking only 15-20 feet to use the restroom. He now only has to walk a few steps and apparently has looked asymptomatic while doing so. Review of systems: As above. Physical Exam Physical Exam: Gen.: No acute distress. Alert. HEENT: Anicteric sclera. Neck: Thick neck. Cannot assess JVD. Cardiac: Regular. Normal S1-S2. 2/6 at least mid to late peaking systolic ejection murmur heard best at right upper sternal border. No rubs or gallops. Pulmonary: Decreased breath sounds, but improved. Clear to auscultation bilaterally without wheezes, rales, or rhonchi. Abdomen: Soft, nontender, with normoactive bowel sounds. No bruits noted. Extremities: 2+ radial pulses bilaterally. Right radial cath site is clean, dry, and intact without erythema or discharge. No edema or cyanosis. Psychiatric: Affect appears appropriate. Results & Data Vital Signs (Past 12 Hours) Vital Signs Temp Pulse Pulse Resp BP Pulse Ox 12/18/19 11:55 36.4 C L 58 L 18 135/85 93 12/18/19 07:52 36.4 C L 54 L 19 148/89 H 94 12/18/19 07:22 56 L 18 91 12/18/19 07:00 53 L 12/18/19 04:27 36.5 C 55 L 18 149/89 H 95 12/18/19 03:00 58 L 18 94 Laboratory Results Laboratory Results - last 24 hr 12/17/19 12/17/19 12/18/19 16:40 20:24 07:32 POC Glucose 197 H 181 H 144 H 12/18/19 11:41 POC Glucose 214 H Diagnostic Findings Telemetry reviewed: Sinus rhythm. No arrhythmia. Medications Administered Current Inpatient Medications Acetaminophen (Tylenol) 650 mg PO Q4H PRN PRN Reason: pain/fever Stop: 01/11/20 13:43 Albuterol (Duoneb) 3 ml NEB Q2H PRN PRN Reason: Shortness of Breath/Wheezing Stop: 01/11/20 13:43 Albuterol (Duoneb) 3 ml NEB QIDR [facility] Stop: 01/11/20 14:59 Last Admin: 12/18/19 12:10 Dose: Not Given Documented by: Aspirin (Ecotrin Ectab) 81 mg PO DAILY [facility] Stop: 01/12/20 08:59 Last Admin: 12/18/19 08:15 Dose: 81 mg Documented by: Atorvastatin Calcium (Lipitor) 40 mg PO DAILY [facility] Stop: 01/12/20 08:59 Last Admin: 12/18/19 08:15 Dose: 40 mg Documented by: Celecoxib (Celebrex) 200 mg PO BID [facility] Stop: 01/11/20 20:59 Last Admin: 12/18/19 08:24 Dose: Not Given Documented by: Cyanocobalamin (Vitamin B-12) 1,000 mcg PO BID [facility] Stop: 01/11/20 20:59 Last Admin: 12/18/19 08:16 Dose: 1,000 mcg Documented by: Dextrose (Dextrose 50%) 25 - 50 ml IV UD PRN; Protocol PRN Reason: Hypoglycemia Protocol Stop: 01/11/20 13:43 Doxycycline Hyclate (Vibramycin) 100 mg PO BID [facility]; Protocol Stop: 12/19/19 20:59 Last Admin: 12/18/19 08:16 Dose: 100 mg Documented by: Enoxaparin Sodium (Lovenox) 40 mg SQ Q24H [facility] Stop: 01/11/20 13:43 Last Admin: 12/17/19 20:27 Dose: 40 mg Documented by: Escitalopram Oxalate (Lexapro Tab) 10 mg PO DAILY [facility] Stop: 01/12/20 08:59 Last Admin: 12/18/19 08:15 Dose: 10 mg Documented by: Fluticasone Propionate (Flonase) 1 sprays NA DAILY PRN PRN Reason: Nasal Congestion Stop: 01/11/20 13:43 Fluticasone/Vilanterol (Breo Ellipta 100/25 Mcg Inh) 1 puffs INH HS [facility]; Protocol Stop: 01/14/20 20:59 Last Admin: 12/17/19 21:45 Dose: 1 puffs Documented by: Glucagon (Glucagen) 1 mg SQ UD PRN; Protocol PRN Reason: Hypoglycemia Protocol Stop: 01/11/20 13:43 Glucose (Dex4 Glucose) 4 - 8 tabs PO UD PRN; Protocol PRN Reason: Hypoglycemia Protocol Stop: 01/11/20 13:43 Glucose (Glucose 40%) 15 - 30 gm PO UD PRN; Protocol PRN Reason: Hypoglycemia Protocol Stop: 01/11/20 13:43 Guaifenesin (Mucinex) 1,200 mg PO BID [facility] Stop: 01/11/20 20:59 Last Admin: 12/18/19 08:16 Dose: 1,200 mg Documented by: Hydroxychloroquine Sulfate (Plaquenil) 200 mg PO BID [facility] Stop: 01/11/20 20:59 Last Admin: 12/18/19 08:15 Dose: 200 mg Documented by: Insulin Aspart (Novolog Flexpen) 0 units SC ACHS [facility] Stop: 01/11/20 16:29 Last Admin: 12/18/19 12:05 Dose: 3 units Documented by: Lidocaine (Lidoderm 5%) 1 patch TD QAM [facility] Stop: 01/12/20 14:59 Last Admin: 12/18/19 08:16 Dose: 1 patch Documented by: Loratadine (Claritin) 10 mg PO DAILY [facility] Stop: 01/12/20 08:59 Last Admin: 12/18/19 08:16 Dose: 10 mg Documented by: Magnesium Oxide (Mag-Ox) 400 mg PO DAILY@1200 [facility] Stop: 01/12/20 11:59 Last Admin: 12/18/19 12:05 Dose: 400 mg Documented by: Metoprolol Tartrate (Lopressor) 100 mg PO BID [facility] Stop: 01/14/20 08:59 Last Admin: 12/18/19 08:15 Dose: 100 mg Documented by: Miscellaneous (Carbohydrates For Hypoglycemia) 15 - 30 gm PO UD PRN PRN Reason: Hypoglycemia Protocol Stop: 01/11/20 13:43 Miscellaneous (Remove Lidoderm Patch) 1 ea N/A DAILY@2100 [facility] Stop: 01/12/20 20:59 Last Admin: 12/17/19 20:23 Dose: 1 ea Documented by: Montelukast Sodium (Singulair) 10 mg PO QPM [facility] Stop: 01/11/20 20:59 Last Admin: 12/17/19 20:24 Dose: 10 mg Documented by: Multivitamins (Multivitamin Tab) 1 tab PO DAILY@1200 [facility] Stop: 01/12/20 11:59 Last Admin: 12/18/19 12:06 Dose: 1 tab Documented by: Neomycin/Polymyxin/Bacitracin (Neosporin Oint) 1 appln EXT PRN PRN PRN Reason: other Stop: 01/12/20 21:40 Last Admin: 12/14/19 00:56 Dose: 1 appln Documented by: Nitroglycerin (Nitrostat) 0.4 mg SL Q5M PRN PRN Reason: chest pain Stop: 01/11/20 13:43 Oxcarbazepine (Trileptal) 150 mg PO DAILY [facility] Stop: 01/12/20 08:59 Last Admin: 12/18/19 08:14 Dose: 150 mg Documented by: Pantoprazole Sodium (Protonix) 40 mg PO DAILY [facility] Stop: 01/12/20 08:59 Last Admin: 12/18/19 08:17 Dose: 40 mg Documented by: Prednisone (Prednisone) 20 mg PO DAILY [facility] Stop: 12/20/19 08:59 Last Admin: 12/18/19 08:15 Dose: 20 mg Documented by: Ropinirole HCl (Requip) 0.5 mg PO QPM [facility] Stop: 01/11/20 20:59 Last Admin: 12/17/19 20:23 Dose: 0.5 mg Documented by: Tramadol HCl (Ultram) 50 mg PO Q4H PRN PRN Reason: Pain Stop: 01/11/20 13:43 Last Admin: 12/12/19 21:27 Dose: 50 mg Documented by: Umeclidinium [place] (Incruse Ellipta) 1 puffs INH DAILY [facility] Stop: 01/12/20 08:59 Last Admin: 12/18/19 08:14 Dose: 1 puffs Documented by: Vitamin D (Vitamin D3) 1,000 units PO BID [facility] Stop: 01/11/20 20:59 Last Admin: 12/18/19 08:16 Dose: 1,000 units Documented by: PG Care Time/CCT Total # of Minutes Spent Total Time Spent with Patient: Total time spent is greater than 50% in coordination of care (as documented) at patient's floor/unit and/or counseling patient: Coding Level of Care Code 00195 Subseq Hosp Care Lvl 3 Diagnoses Aortic stenosis I35.0 Chest pain, exertional R07.9 CAD (coronary artery disease) I25.10 [place] (dyspnea on exertion) R06.09 Essential hypertension I10
--- NOTE | 2019-12-18 15:58 | Hospitalist Progress Note ---
Date of Service December 18, 2019 Assessment & Plan (1) Fall: - Reports likely mechanical fall resulting in falling down 5-6 steps and suspected LOC from striking head. States he crawled to the bathroom. Denies H/O symptoms prior to fall but states it was rapid but does feel like it was his l egs. - He has been feeling under the weather and possibly some dehydration. He does report intermittent dizziness in the past but never syncope; NSR on monitor - Head CT - negative for acute processes -- No neurological deficits appreciated - Echo - EF 65-70%, no wall motion abnormality, Severe (further advanced from previous echo), mild-moderate pulmonary HTN most likely his severe caused the fall, likely syncope since it was unwitnessed he admits that he cannot really exert himself at all, gets short of breath, chest pressure - Cardiac cath on 12/16 revealed severe CAD in mid RCA - Cardiology following - patient has been accepted in transfer [place] [facility] [place] and possible CAD intervention - accepting provider is Dr. Cordero no beds available right now, patient is number two on the list (2) COPD exacerbation: - IMPROVING; Possibly mild exacerbation - given wheezing and change in sputum production -- no longer with blood tinged sputum, minimal cough today -- Unlikely PE given lack of tachycardia, hypoxia, respiratory distress - Continue Doxycycline and Prednisone with taper - is on chronic steroids daily complete 7 days total of Doxy Prednisone 20mg daily today, taper to 10mg daily tomorrow for three days then 5mg daily - Continue Duonebs; Mucinex BID (3) Diabetes mellitus: - Continue SSI monitor for hypoglycemia, no episodes (4) Obstructive sleep apnea: Continue CPAP nightly as per outpatient orders Disposition: Does not need O2 per 2-step; awaiting transfer to [facility] Subjective patient remains stable no wheezing, minimal cough eating well still with dyspnea on exertion, no chest pressure checked with admin secretary, awaiting call from [place], no beds as of right now Review of Systems Review of Systems: All systems reviewed & are unremarkable except as noted in HPI & below Respiratory: + dyspnea on exertion Physical Exam Constitutional: WD/WN, vitals as above Eyes: PERRL, conjunctivae normal, anicteric sclerae ENMT: external ear and nose normal, oropharynx normal Respiratory: normal respiratory effort, lungs clear to auscultation Cardiovascular: Rate/Rhythm: regular rate and regular rhythm Heart Sounds: normal S1, normal S2 and + murmur Extremities: normal capillary refill; no edema Gastrointestinal (Abdomen): normal bowel sounds, soft, nontender, no hepatosplenomegaly Musculoskeletal: no cyanosis or clubbing, extremities motor strength 5/5 Skin: no rashes, warm and dry Neurologic: patellar DTR's 2+ bilat, sensation intact and PERRL, EOMI, accommodation nl, no face palsy, no dysarthria Psychiatric: A+Ox3, euthymic affect Lymphatic: no cervical or axillary lymphadenopathy Results & Data Vital Signs (Past 12 Hours) Vital Signs Temp Pulse Pulse Pulse Resp BP Pulse Ox 12/18/19 15:47 58 L 14 95 12/18/19 15:02 56 L 12/18/19 11:55 36.4 C L 58 L 18 135/85 93 12/18/19 07:52 36.4 C L 54 L 19 148/89 H 94 12/18/19 07:22 56 L 18 91 12/18/19 07:00 53 L 12/18/19 04:27 36.5 C 55 L 18 149/89 H 95 Laboratory Results Laboratory Results - last 24 hr 12/17/19 12/17/19 12/18/19 16:40 20:24 07:32 POC Glucose 197 H 181 H 144 H 12/18/19 11:41 POC Glucose 214 H Medications Administered Current Inpatient Medications Acetaminophen (Tylenol) 650 mg PO Q4H PRN PRN Reason: pain/fever Stop: 01/11/20 13:43 Albuterol (Duoneb) 3 ml NEB Q2H PRN PRN Reason: Shortness of Breath/Wheezing Stop: 01/11/20 13:43 Albuterol (Duoneb) 3 ml NEB QIDR [facility] Stop: 01/11/20 14:59 Last Admin: 12/18/19 15:46 Dose: 3 ml Documented by: Aspirin (Ecotrin Ectab) 81 mg PO DAILY [facility] Stop: 01/12/20 08:59 Last Admin: 12/18/19 08:15 Dose: 81 mg Documented by: Atorvastatin Calcium (Lipitor) 40 mg PO DAILY [facility] Stop: 01/12/20 08:59 Last Admin: 12/18/19 08:15 Dose: 40 mg Documented by: Cyanocobalamin (Vitamin B-12) 1,000 mcg PO BID [facility] Stop: 01/11/20 20:59 Last Admin: 12/18/19 08:16 Dose: 1,000 mcg Documented by: Dextrose (Dextrose 50%) 25 - 50 ml IV UD PRN; Protocol PRN Reason: Hypoglycemia Protocol Stop: 01/11/20 13:43 Doxycycline Hyclate (Vibramycin) 100 mg PO BID [facility]; Protocol Stop: 12/19/19 20:59 Last Admin: 12/18/19 08:16 Dose: 100 mg Documented by: Enoxaparin Sodium (Lovenox) 40 mg SQ Q24H [facility] Stop: 01/11/20 13:43 Last Admin: 12/17/19 20:27 Dose: 40 mg Documented by: Escitalopram Oxalate (Lexapro Tab) 10 mg PO DAILY [facility] Stop: 01/12/20 08:59 Last Admin: 12/18/19 08:15 Dose: 10 mg Documented by: Fluticasone Propionate (Flonase) 1 sprays NA DAILY PRN PRN Reason: Nasal Congestion Stop: 01/11/20 13:43 Fluticasone/Vilanterol (Breo Ellipta 100/25 Mcg Inh) 1 puffs INH HS [facility]; Protocol Stop: 01/14/20 20:59 Last Admin: 12/17/19 21:45 Dose: 1 puffs Documented by: Glucagon (Glucagen) 1 mg SQ UD PRN; Protocol PRN Reason: Hypoglycemia Protocol Stop: 01/11/20 13:43 Glucose (Dex4 Glucose) 4 - 8 tabs PO UD PRN; Protocol PRN Reason: Hypoglycemia Protocol Stop: 01/11/20 13:43 Glucose (Glucose 40%) 15 - 30 gm PO UD PRN; Protocol PRN Reason: Hypoglycemia Protocol Stop: 01/11/20 13:43 Guaifenesin (Mucinex) 1,200 mg PO BID [facility] Stop: 01/11/20 20:59 Last Admin: 12/18/19 08:16 Dose: 1,200 mg Documented by: Hydroxychloroquine Sulfate (Plaquenil) 200 mg PO BID [facility] Stop: 01/11/20 20:59 Last Admin: 12/18/19 08:15 Dose: 200 mg Documented by: Insulin Aspart (Novolog Flexpen) 0 units SC ACHS [facility] Stop: 01/11/20 16:29 Last Admin: 12/18/19 12:05 Dose: 3 units Documented by: Lidocaine (Lidoderm 5%) 1 patch TD QAM [facility] Stop: 01/12/20 14:59 Last Admin: 12/18/19 08:16 Dose: 1 patch Documented by: Loratadine (Claritin) 10 mg PO DAILY [facility] Stop: 01/12/20 08:59 Last Admin: 12/18/19 08:16 Dose: 10 mg Documented by: Magnesium Oxide (Mag-Ox) 400 mg PO DAILY@1200 [facility] Stop: 01/12/20 11:59 Last Admin: 12/18/19 12:05 Dose: 400 mg Documented by: Metoprolol Tartrate (Lopressor) 100 mg PO BID [facility] Stop: 01/14/20 08:59 Last Admin: 12/18/19 08:15 Dose: 100 mg Documented by: Miscellaneous (Carbohydrates For Hypoglycemia) 15 - 30 gm PO UD PRN PRN Reason: Hypoglycemia Protocol Stop: 01/11/20 13:43 Miscellaneous (Remove Lidoderm Patch) 1 ea N/A DAILY@2100 [facility] Stop: 01/12/20 20:59 Last Admin: 12/17/19 20:23 Dose: 1 ea Documented by: Montelukast Sodium (Singulair) 10 mg PO QPM [facility] Stop: 01/11/20 20:59 Last Admin: 12/17/19 20:24 Dose: 10 mg Documented by: Multivitamins (Multivitamin Tab) 1 tab PO DAILY@1200 [facility] Stop: 01/12/20 11:59 Last Admin: 12/18/19 12:06 Dose: 1 tab Documented by: Neomycin/Polymyxin/Bacitracin (Neosporin Oint) 1 appln EXT PRN PRN PRN Reason: other Stop: 01/12/20 21:40 Last Admin: 12/14/19 00:56 Dose: 1 appln Documented by: Nitroglycerin (Nitrostat) 0.4 mg SL Q5M PRN PRN Reason: chest pain Stop: 01/11/20 13:43 Oxcarbazepine (Trileptal) 150 mg PO DAILY [facility] Stop: 01/12/20 08:59 Last Admin: 12/18/19 08:14 Dose: 150 mg Documented by: Pantoprazole Sodium (Protonix) 40 mg PO DAILY [facility] Stop: 01/12/20 08:59 Last Admin: 12/18/19 08:17 Dose: 40 mg Documented by: Prednisone (Prednisone) 20 mg PO DAILY [facility] Stop: 12/20/19 08:59 Last Admin: 12/18/19 08:15 Dose: 20 mg Documented by: Ropinirole HCl (Requip) 0.5 mg PO QPM [facility] Stop: 01/11/20 20:59 Last Admin: 12/17/19 20:23 Dose: 0.5 mg Documented by: Tramadol HCl (Ultram) 50 mg PO Q4H PRN PRN Reason: Pain Stop: 01/11/20 13:43 Last Admin: 12/12/19 21:27 Dose: 50 mg Documented by: Umeclidinium [place] (Incruse Ellipta) 1 puffs INH DAILY [facility] Stop: 01/12/20 08:59 Last Admin: 12/18/19 08:14 Dose: 1 puffs Documented by: Vitamin D (Vitamin D3) 1,000 units PO BID [facility] Stop: 01/11/20 20:59 Last Admin: 12/18/19 08:16 Dose: 1,000 units Documented by: PG Care Time/CCT Total # of Minutes Spent Total Time Spent with Patient: Total time spent is greater than 50% in coordination of care (as documented) at patient's floor/unit and/or counseling patient: Coding Level of Care Code 29528 Subseq Hosp Care Lvl 2 Diagnoses Fall W19.XXXA COPD exacerbation J44.1 Diabetes mellitus E11.9 Obstructive sleep apnea G47.33
[2019-12-18] MEDS: ENOXAPARIN INJ 40 MG/0.4 ML SYR SQ SCH (20:39)
[2019-12-18] MEDS: ROPINIROLE HCL 0.25 MG TABLET PO SCH (20:40)
[2019-12-18] MEDS: MONTELUKAST SODIUM 10 MG TABLET PO SCH (20:42)
[2019-12-18] MEDS: FLUTICASONE/VILANTEROL 100/25MCG 14 PUFFS/INHALER INH SCH (20:44)
[2019-12-19] MEDS: ALBUT/IPRATROP 3MG/0.5MG NEB 3 ML VIAL NEB SCH ×4 (07:06→19:26)
[2019-12-19] MEDS: INSULIN ASPART 100 UNITS/ML 3 ML PEN SC SCH ×4 (07:56→20:23)
[2019-12-19] MEDS: LIDOCAINE 5% 1 PATCH TD SCH (07:59)
[2019-12-19] MEDS: UMECLIDINIUM BROMIDE 62.5MCG/BLISTER 7 PUFFS/INHALER INH SCH (08:01)
[2019-12-19] MEDS: HYDROXYCHLOROQUINE SULFATE 200 MG TAB PO SCH ×2 (08:02→20:18)
[2019-12-19] MEDS: ESCITALOPRAM OXALATE 10 MG TAB PO SCH (08:02)
[2019-12-19] MEDS: PANTOprazole 40 MG TAB PO SCH (08:02)
[2019-12-19] MEDS: METOPROLOL TARTRATE 100 MG TAB PO SCH ×2 (08:02→20:18)
[2019-12-19] MEDS: DOXYCYCLINE HYCLATE 100 MG CAP PO SCH (08:02)
[2019-12-19] MEDS: ASPIRIN 81 MG ECTAB PO SCH (08:02)
[2019-12-19] MEDS: guaiFENesin 600 MG TABCR PO SCH ×2 (08:02→20:18)
[2019-12-19] MEDS: ATORVASTATIN 40 MG TAB PO SCH (08:02)
[2019-12-19] MEDS: CYANOCOBALAMIN 500 MCG TABLET (VITAMIN B-12) PO SCH ×2 (08:02→20:21)
[2019-12-19] MEDS: OXcarbazepine 150 MG TABLET PO SCH (08:02)
[2019-12-19] MEDS: LORATADINE 10 MG TAB PO SCH (08:02)
[2019-12-19] MEDS: CHOLECALCIFEROL 1,000 UNITS 25 MCG TAB PO SCH ×2 (08:02→20:18)
[2019-12-19] MEDS: predniSONE 10 MG TABLET PO SCH (08:03)
[2019-12-19] MEDS: MAGNESIUM OXIDE 400 MG TAB PO SCH (11:51)
[2019-12-19] MEDS: MULTIVITAMIN TAB PO SCH (11:51)
[2019-12-19] MEDS: FLUTICASONE/VILANTEROL 100/25MCG 14 PUFFS/INHALER INH SCH (20:18)
[2019-12-19] MEDS: MONTELUKAST SODIUM 10 MG TABLET PO SCH (20:18)
[2019-12-19] MEDS: ENOXAPARIN INJ 40 MG/0.4 ML SYR SQ SCH (20:19)
[2019-12-19] MEDS: ROPINIROLE HCL 0.25 MG TABLET PO SCH (20:21)
[2019-12-20] MEDS: ALBUT/IPRATROP 3MG/0.5MG NEB 3 ML VIAL NEB SCH (07:04)
[2019-12-20] MEDS: CHOLECALCIFEROL 1,000 UNITS 25 MCG TAB PO SCH (07:58)
[2019-12-20] MEDS: ESCITALOPRAM OXALATE 10 MG TAB PO SCH (07:58)
[2019-12-20] MEDS: UMECLIDINIUM BROMIDE 62.5MCG/BLISTER 7 PUFFS/INHALER INH SCH (07:58)
[2019-12-20] MEDS: predniSONE 10 MG TABLET PO SCH (07:59)
[2019-12-20] MEDS: METOPROLOL TARTRATE 100 MG TAB PO SCH (07:59)
[2019-12-20] MEDS: MULTIVITAMIN TAB PO SCH (07:59)
[2019-12-20] MEDS: CYANOCOBALAMIN 500 MCG TABLET (VITAMIN B-12) PO SCH (07:59)
[2019-12-20] MEDS: ASPIRIN 81 MG ECTAB PO SCH (07:59)
[2019-12-20] MEDS: LIDOCAINE 5% 1 PATCH TD SCH (08:00)
[2019-12-20] MEDS: PANTOprazole 40 MG TAB PO SCH (08:00)
[2019-12-20] MEDS: ATORVASTATIN 40 MG TAB PO SCH (08:00)
[2019-12-20] MEDS: HYDROXYCHLOROQUINE SULFATE 200 MG TAB PO SCH (08:01)
[2019-12-20] MEDS: OXcarbazepine 150 MG TABLET PO SCH (08:02)
[2019-12-20] MEDS: guaiFENesin 600 MG TABCR PO SCH (08:02)
[2019-12-20] MEDS: LORATADINE 10 MG TAB PO SCH (08:02)
[2019-12-20] MEDS: INSULIN ASPART 100 UNITS/ML 3 ML PEN SC SCH ×2 (08:03→12:12)
[2019-12-20] MEDS: MAGNESIUM OXIDE 400 MG TAB PO SCH (12:13)
[2019-12-20] MEDS ORDERED: IPRATROPIUM BROMIDE/ALBUTEROL respimat INH INH SCH (13:00)
--- NOTE | 2019-12-20 15:44 | Discharge Summary ---
Date of Service December 20, 2019 Admission HPI Per Admitting Provider This is a 74-year-old male with past medical history of diabetes and COPD that presents today status post fall. Patient is accompanied by multiple family members including his , all give a good history. Patient tells me that he has been getting some progressive weakness at home. The does state that the patient has fallen at home in the past but without any serious injury. He did have a recent URI in September 2019. He did make some recovery from that but continued to have a dry cough. Over the past 3-4 days the cough worsened became more productive, with escoto or clear sputum. Patient had a dry cough consistently throughout the interview. The noted that the patient was having difficulty ambulating secondary to weakness lower extremities and that "his legs give out frequently". At one point 2 nights ago, he fell out of bed and finished to be on the floor because he could not get up. Earlier today, the patient was ambulating down the stairs when his legs low strength and he fell down 5-6 stairs. He struck the left side of his head on a door hinge and had a brief loss of consciousness. He recovered quickly over a few seconds he was able to crawl to the bathroom. At that point the called 911 and the patient was brought to the emergency room. The patient was evaluated emergency room and was found not to have any significant injury. The patient is complaining of some chest wall pain in his left ribs. He was given Levaquin in the emergency room with the intention to discharge him home with the patient states that he cannot walk secondary to his weakness. Therefore, he will be brought in the hospital as observation for further treatment. At the time my evaluation, the patient was not having any significant respiratory distress but he did have an ongoing dry cough. Vitals appear to be stable. Of note, the patient does not use home oxygen but he does use CPAP at night which he tells me he is compliant with. Principal Diagnosis Severe aortic stenosis, likely causing sycope Discharge Exam Constitutional WD/WN, vitals as above Eyes PERRL, conjunctivae normal, anicteric sclerae ENMT external ear and nose normal, oropharynx normal Respiratory normal respiratory effort, lungs clear to auscultation Cardiovascular Rate/Rhythm: regular rate and regular rhythm Heart Sounds: normal S1, normal S2 and + murmur Extremities: normal capillary refill; no edema Gastrointestinal (Abdomen) normal bowel sounds, soft, nontender, no hepatosplenomegaly Musculoskeletal no cyanosis or clubbing, extremities motor strength 5/5 Skin no rashes, warm and dry Neurologic patellar DTR's 2+ bilat, sensation intact and PERRL, EOMI, accommodation nl, no face palsy, no dysarthria Psychiatric A+Ox3, euthymic affect Lymphatic no cervical or axillary lymphadenopathy Discharge Data Allergies Allergy/AdvReac Type Severity Reaction Status Date / Time auranofin Allergy Severe SHORTNESS Verified 12/12/19 09:45 OF BREATH benzyl alcohol Allergy Intermediate . Verified 12/12/19 09:45 Gold Salts Allergy Unknown HIVES TO Verified 12/12/19 09:45 GOLD SHOTS Consultations 12/12/19 11:00 ED Decision to Admit Stat 12/14/19 14:59 Consult Cardiology Routine Procedures Performed Operation Date: 12/16/19 14:00 Actual Procedures p Cineradiography w/Routine Exam - Wilmer Haines MD Ordered Studies 12/12/19 09:23 CT head/brain wo con Stat 12/16/19 13:27 CL Cath Imgs for PACS use only Routine Hospital Course (1) Fall: - Reports likely mechanical fall resulting in falling down 5-6 steps and suspected LOC from striking head. States he crawled to the bathroom. Denies H/O symptoms prior to fall but states it was rapid but does feel like it was his legs. - He has been feeling under the weather and possibly some dehydration. He does report intermittent dizziness in the past but never syncope; NSR on monitor - Head CT - negative for acute processes -- No neurological deficits appreciated - Echo - EF 65-70%, no wall motion abnormality, Severe (further advanced from previous echo), mild-moderate pulmonary HTN most likely his severe caused the fall, likely syncope since it was unwitnessed he admits that he cannot really exert himself at all, gets short of breath, chest pressure - Cardiac cath on 12/16 revealed severe CAD in mid RCA - Cardiology following - patient has been accepted in transfer to [facility] [place] consider [place]R and possible CAD intervention - accepting provider is Dr. Cordero bed available today, transfer to [employer] [employer] (2) COPD exacerbation: - IMPROVING; Possibly mild exacerbation - given wheezing and change in sputum production -- no longer with blood tinged sputum, minimal cough today -- Unlikely PE given lack of tachycardia, hypoxia, respiratory distress - Continue Doxycycline and Prednisone with taper - is on chronic steroids daily complete 7 days total of Doxy Prednisone 10mg today, can resume 5mg daily on 12/21 which is his home dose - Continue Duonebs; Mucinex BID (3) Diabetes mellitus: - Continue SSI monitor for hypoglycemia, no episodes (4) Obstructive sleep apnea: Continue CPAP nightly as per outpatient orders Disposition: Does not need O2 per 2-step; awaiting transfer to [facility] Total Time Total Time Spent Total Time Spent (In Minutes): 15 minutes Total Time Includes: Examination of the Patient, Discharge Planning and Medication Reconciliation Discharge Plan Discharge Items Patient Disposition: Transfer Acute Care Hospital Reason For Visit: COPD EXACERBATION,FALL Discharge Diagnosis: RCA Disease; Severe Aortic Stenosis Activity: Resume your previous activity Non-emergency contact: Primary Care Provider Call non-emergency contact if: you have any medication questions, your symptoms worsen and you have a fever Diet: Carb Consistent or DM2 and Heart Healthy Addtl Attending Provider Instructions: Mid RCA CAD: - Patient underwent cardiac cath and recommending transfer for TAVR/other intervention and possible intervention on the RCA - Patient presented due to a fall - he feels it was mechanical due to his legs giving out but can be forgetful doesn't know for sure if it wasn't syncopal. He does believe there was a loss of consciousness. Head CT negative and no acute injury appreciated. Had L sided rib pain which is resolved and no findings of fx on imaging. - It appears he has had chronic issues with a burning mid-central CP with minimal exertion and states he would get rather pale and diaphoretic. This never occurs at rest. He has never had a cath until today. - Echo - EF 65-70%, no wall motion abnormality, severe (futher advanced from mod/severe read from Dec 2018 echo), mild-moderate pulmonary HTN - Troponins negative COPD exacerbation: - IMPROVING; Possibly mild exacerbation - given wheezing and change in sputum production -- Had some mild blood-tinge sputum/hemoptysis but resolved today - consider CTA if further symptoms -- Unlikely PE given lack of tachycardia, hypoxia, respiratory distress - Continue Doxycycline and Prednisone with taper last dose was Prednisone 40 mg daily - is on chronic steroids daily (5 mg daily) - Continue Duonebs; Mucinex BID - Follows with [facility] as outpatient - Did not qualify for supplemental O2 on 2-step Diabetes mellitus: - A1c 7.5 - held orals and used SSI in-house Obstructive sleep apnea: - Continue CPAP nightly as per outpatient orders Pending Studies at Discharge: No Stand-Alone Forms: My [facility] Skilled Items Patient informed of condition?: Yes DNR: No Discharge Level of Care: Other Communicable Disease: No Discharge Prognosis: Stable Lines: Peripheral IV Urinary Catheter: No Medications and DC Order Prescriptions: Continued oxcarbazepine 150 mg tablet 150 mg PO DAILY Qty: 90 RF: 3 glimepiride 1 mg tablet 1 mg PO BID Qty: 60 RF: 5 atorvastatin 40 mg tablet 40 mg PO DAILY Qty: 90 RF: 1 metoprolol tartrate 25 mg tablet 75 mg PO BID Qty: 360 RF: 1 nitroglycerin 0.4 mg tablet, sublingual 0.4 mg SL Q5M PRN (Reason: chest pain) Qty: 25 RF: 0 escitalopram oxalate 10 mg tablet 10 mg PO DAILY Qty: 30 RF: 5 metformin 1,000 mg tablet 1,000 mg PO BID Qty: 180 RF: 1 omeprazole 20 mg capsule,delayed release(DR/EC) 20 mg PO DAILY Qty: 90 RF: 0 aspirin 81 mg tablet,delayed release (DR/EC) 81 mg PO DAILY Qty: 90 RF: 0 loratadine 10 mg tablet 10 mg PO DAILY Qty: 90 RF: 0 magnesium oxide 400 mg (241.3 mg magnesium) tablet 400 mg PO DAILY RF: 0 montelukast 10 mg tablet 10 mg PO QPM Qty: 90 RF: 0 hydroxychloroquine 200 mg tablet 200 mg PO BID Qty: 60 RF: 0 multivitamin [Multiple Vitamins] tablet 1 tab PO DAILY RF: 0 fluticasone propionate 50 mcg/actuation spray,suspension 1 spray intranasal DAILY PRN (Reason: Nasal Congestion) Qty: 1 RF: 0 Combivent Respimat 20-100 mcg/actuation mist 1 puffs inhalation QID Qty: 1 RF: 0 prednisone 5 mg tablet 5 mg PO DAILY Qty: 90 RF: 1 albuterol sulfate 90 mcg/actuation HFA aerosol inhaler 2 puffs inhalation Q6H PRN (Reason: shortness of breath or wheezing) Qty: 18 RF: 5 celecoxib [Celebrex] 200 mg Capsule 200 mg PO BID RF: 0 cyanocobalamin (vitamin B-12) 1,000 mcg Tablet 1,000 mcg PO BID RF: 0 ascorbic acid (vitamin C) 100 mg Tablet 0 mg PO DAILY RF: 0 cholecalciferol (vitamin D3) [Vitamin D3] 25 mcg (1,000 unit) Capsule 25 mcg PO BID RF: 0 Symbicort 160-4.5 mcg/actuation Hfa Aerosol Inhaler 2 puff INHALATION BID RF: 0 potassium gluconate 595 mg (99 mg) Tablet 595 mg PO DAILY RF: 0 Probiotic 3 billion cell Capsule 0 mmu cells PO DAILY RF: 0 ropinirole 0.5 mg tablet 0.5 mg PO QPM RF: 0 Incruse Ellipta 62.5 mcg/actuation blister with device 1 puffs inhalation DAILY RF: 0 Discharge Orders: Discharge Order (Routine); Ordered 12/16/19 Ordered By: Deirdre Ramirez/Other Patient Handouts: Hyperglycemia, Hypoglycemia, Diabetes Type 2 Coping Admission Data Admit Date/Time: 12/14/19 14:59 Attending Provider: Hugh Jennings Admit Provider: Jamie Dennis Primary Care Provider: Oscar Sullivan Other Providers: Jamie Dennis ; Wilmer Haines Coding Level of Care Code D/C Day Management <30 mins Diagnoses Fall W19.XXXA COPD exacerbation J44.1 Diabetes mellitus E11.9 Obstructive sleep apnea G47.33
== END 2019-12-20 16:14 | disposition short-term general hospital (02) | DRG 287 ==
LOC: ED 08:19 → 4W 08:19 → SUATTDRO 11:48 → 4W 13:19 → 2S 12-14 18:32
PROC: CLB.CCO (2019-12-16 14:00)

== ENCOUNTER 2021-07-06 14:17 | Inpatient (IN) ==
--- NOTE | 2021-07-06 17:17 | Emergency Department Note ---
Impression & Plan COVID-19, Weakness, Breath shortness, Cough ED Provider Note NAME: BRIGITTE BOSWELL AGE: 76 SEX: M : 1945 ARRIVES VIA: Walk-In INFORMANT: Patient ED PROVIDER(S): Jagdish Young DO CHIEF COMPLAINT: cough HPI: Patient is a 76-year-old male who has a past medical history of COPD, CKD pneumonia, GERD as well as PRITCHETT that presents the ER for cough. He notes he had visitors from out of state for several days. Today both him and his in the past 24 hours started with a cough and congestion. He admits to a little bit of a runny nose and a sore throat. Denies any headache. He does have some left- sided arm pain which been present for the past 2 days it is worse with movement of his arm and palpation posterior aspect of his shoulder. He denies any chest pain. He does admit to shortness of breath when moving around. No belly pain, nausea, vomiting, or diarrhea. No dysuria, urgency, or frequency. No other exacerbating or remitting factors. He is coughing up a white sputum. ROS: See above HPI for pertinent positives & negatives. A total of 10 systems reviewed and were otherwise negative. PAST MEDICAL HISTORY:See Below PAST SURGICAL HISTORY:See Below FAMILY HISTORY:See Below SOCIAL HISTORY:See Below HOME MEDICATIONS:See Below ALLERGIES:See Below VITALS:See Below PHYSICAL EXAMINATION: GENERAL: Sitting up in bed, alert, chronically ill-appearing, disheveled EYE EXAM: normal conjunctiva. PERRLA and EOM's grossly intact. OROPHARYNX: no exudate, no erythema, lips, buccal mucosa, and tongue normal and mucous membranes are moist NECK: supple, no nuchal rigidity, no adenopathy, non-tender LUNGS: Diminished bilaterally. Normal chest wall mechanics HEART: no murmurs, S1 normal and S2 normal ABDOMEN: abdomen soft, non-tender, normo-active bowel sounds, no masses, no rebound or guarding. BACK: Back is symmetrical on inspection and there is no deformity, no midline tenderness, no CVA tenderness. Tenderness over the left trapezius tracking into the left humeral head. Worse with movement of the left upper extremity. Radial pulse 2 out of 4. UPPER EXTREMITIES: upper extremities are grossly normal. LOWER EXTREMITIES: No pitting edema. NEURO EXAM: Normal sensorium, cranial nerves II-XII grossly intact, normal speech, no gross weakness of arms, no gross weakness of legs. MEDICAL DECISION MAKING: Patient is a 76-year-old gentleman who presents ER for upper respiratory symptoms who is vaccinated with Covid exposure status post TAVR. With any kind of exertion he becomes extremely tachypneic with a respiratory rate of 35. IV was established blood was obtained. Labs show no significant leukocytosis or anemia. BMP with mild hyponatremia. Mild transaminitis which is likely consistent with Covid. Covid was positive. Troponin was negative. EKG was nondiagnostic. Chest x-ray without any infiltrates. He was significantly dyspneic with any exertion and unsteady on his feet. He was given a dose of Decadron. Discussed with the who is his ruffling hemmer automatic notes that he was having a fair amount of trouble at home. Patient was updated bedside discussed with hospitalist for further evaluation. Triage Nursing notes reviewed. Limited review of prior medical records performed Vital Signs: reviewed and remarkable for no significant abnormalities Differential diagnosis: Differential diagnoses includes but is not limited to pneumonia, bronchitis, COPD/Asthma exacerbation, pneumothorax, pulmonary embolism, congestive heart failure, acute coronary syndrome ER treatment provided: See below Diagnostics interpreted by me: ECG: Sinus rhythm and a 100 Normal axis No PVCs QTC 454 Cardiac Monitoring: An order was placed for continuous cardiac monitoring. The monitor shows a rate of 92 with sinus rhythm. Laboratory studies: As stated above and show below. Imaging studies: Portable AP upright 1 view the chest shows no focal infiltrate or pneumothorax Consultation(s): Discussed with Amira Guzman for further evaluation Procedures: none Critical Care: None Past Med/Surg History Medical History (Updated 07/06/21 @ 22:10 by Marlene James MD) Alzheimer's disease Anxiety Aortic stenosis F/U DR FERRARA-AVR 12/2019 [facility] [place]chitis HX-2-3 YRS AGO Chronic low back pain Chronic obstructive pulmonary disease CKD (chronic kidney disease) F/U DR BOONE Depression Essential hypertension Hiatal hernia Hyperlipidemia Obesity Obstructive sleep apnea CPAP Osteoarthritis of knee Peptic ulcer HX Presence of drug-eluting stent in right coronary artery Restless legs Restrictive lung disease Rheumatoid arthritis Rheumatoid arthritis F/U DR MO Short-term memory loss SOB (shortness of breath) on exertion Tachycardia HX Tubular adenoma of colon Type 2 diabetes mellitus Venous insufficiency Surgical History (Updated 06/27/21 @ 12:36 by Murtaza Ferrara Jr, MD, [facility]) H/O colonoscopy 2016 History of foot surgery CYSTS REMOVED-LEFT History of total knee replacement RIGHT Hx of appendectomy S/P AVR C 12/2019 S/P cardiac catheterization 11/2019 [facility] 1 STENT S/P TAVR (transcatheter aortic valve replacement) Status post cardiac catheterization Family History Mother Diabetes Coronary heart disease Hypertension Brother Hypertension Sister Hypertension Father Hypertension Denies family history of Ovarian cancer Prostate cancer Myocardial infarction Breast cancer Colorectal cancer Social History Smoking Status: Former smoker Number of Years Since Quit: 43; Second Hand Exposure: No; Hx Alcohol Use: No Hx Substance Use: No Preferred Language: Rwandan Communication Ability: Effective Visual Impairment: No Limitations Hearing Ability: Hard of Hearing Private Banker Required: No Beliefs That Will Affect Care: None marital status: Current Living Situation: Spouse current occupational status: retired Feels Safe at Home: Yes Dental Care, Regularly: Yes Physical Activity Frequency: Does not Exercise Seatbelt Use: always Assistive Devices: Glasses Allergies Allergies Allergy/AdvReac Type Severity Reaction Status Date / Time auranofin Allergy Severe SHORTNESS Verified 06/29/21 09:50 OF BREATH Gold Salts Allergy Unknown HIVES TO Verified 06/29/21 09:50 GOLD SHOTS Home Meds Home Medications Medication Instructions Recorded Confirmed omeprazole 20 mg capsule,delayed 20 mg PO QAM #90 cap 06/03/19 07/06/21 release multivitamin (Multiple Vitamins) 1 tab PO QAM 06/19/19 07/06/21 aspirin 81 mg tablet,delayed 81 mg PO QAM #90 tab 07/09/19 07/06/21 release hydroxychloroquine 200 mg tablet 200 mg PO BID #60 tab 07/09/19 07/06/21 loratadine 10 mg tablet 10 mg PO QAM #90 tab 07/09/19 07/06/21 magnesium oxide 400 mg (241.3 mg 400 mg PO QAM tab 07/09/19 07/06/21 magnesium) tablet cholecalciferol (vitamin D3) 25 25 mcg PO BID 12/12/19 07/06/21 mcg (1,000 unit) capsule (Vitamin D3) cyanocobalamin (vitamin B-12) 1,000 mcg PO BID 12/12/19 07/06/21 1,000 mcg tablet potassium gluconate 595 mg (99 mg) 595 mg PO QAM 12/12/19 07/06/21 tablet prednisone 5 mg tablet 5 mg PO QAM 03/31/21 07/06/21 umeclidinium 62.5 mcg/actuation 1 inh INHALATION QAM 03/31/21 07/06/21 blister powder for inhalation (Incruse Ellipta) ascorbic acid (vitamin C) 100 mg 100 mg PO QAM tab 05/10/21 07/06/21 tablet lactobacillus combination no.4 3 3,000 mmu cells PO QAM cap 05/10/21 07/06/21 billion cell capsule (Probiotic) Previous Rx's Medication Instructions Recorded albuterol sulfate 2.5 mg INHALATION Q4H PRN #180 ml 09/01/20 albuterol sulfate 90 mcg/actuation 2 inh INHALATION Q6H PRN #18 g 09/01/20 aerosol inhaler montelukast 10 mg tablet 10 mg PO QPM #90 tab 01/03/21 metformin 1,000 mg tablet 1,000 mg PO BID #180 tab 01/12/21 CPAP Supplies #1 ea 03/16/21 glimepiride 1 mg tablet 1 mg PO BID #180 tab 03/29/21 atorvastatin 40 mg tablet 40 mg PO QAM #90 tab 04/13/21 metoprolol tartrate 100 mg tablet 100 mg PO Q12H #180 tab 05/10/21 nitroglycerin 0.4 mg sublingual 0.4 mg SL Q5M PRN #25 tab 05/10/21 tablet oxcarbazepine 150 mg tablet 150 mg PO QAM #90 tab 05/22/21 clopidogrel 75 mg tablet 75 mg PO QPM #90 tab 06/06/21 pantoprazole 40 mg tablet,delayed 40 mg PO QPM #90 tab 06/06/21 release escitalopram oxalate 10 mg tablet 10 mg PO QAM #90 tab 06/28/21 ropinirole 0.5 mg tablet 0.75 mg PO HS #135 tab 06/28/21 amoxicillin 875 mg-potassium 1 tab PO Q12H #20 tab 06/29/21 clavulanate 125 mg tablet (Augmentin) prednisone 10 mg tablet See Rx Instructions PO DAILY #20 06/29/21 tab amoxicillin 500 mg tablet 2,000 mg PO ONCE #4 tab 07/03/21 furosemide 20 mg tablet 20 mg PO QAM #90 tab 07/03/21 Results & Data (ED) Vital Signs Vital Signs - 24 hr 07/06/21 14:24 07/06/21 17:05 07/06/21 17:30 Temperature 36.5 C Temperature Source Temporal Artery Scan Pulse Rate 97 H 92 H 99 H Pulse Rate [Exercises] Pulse Rate [Recovery] Pulse Rate [Resting] Pulse Rate from SpO2 Sensor 93 H 99 H Respiratory Rate 22 28 H 28 H Respiratory Rate [Exercises] Respiratory Rate [Recovery] Respiratory Rate [Resting] Respiratory Effort / Characteristics Non-Labored Respiratory Depth Normal Respiratory Pattern Regular Blood Pressure 123/75 133/88 168/104 H Blood Pressure Mean 91 103 125 Blood Pressure Position Sitting Pulse Oximetry 96 94 94 Pulse Oximetry [Exercises] Pulse Oximetry [Recovery] Pulse Oximetry [Resting] Oxygen Delivery Method Room Air Sepsis Recent Fever Within 48 Hours No Sepsis New/Unexplained Change in Mental Status No Sepsis Action Taken by Nursing No Action Required 07/06/21 18:00 07/06/21 18:31 07/06/21 18:54 Temperature Temperature Source Pulse Rate 101 H 101 H 106 H Pulse Rate [Exercises] Pulse Rate [Recovery] Pulse Rate [Resting] Pulse Rate from SpO2 Sensor 101 H 101 H 103 H Respiratory Rate 28 H 29 H 22 Respiratory Rate [Exercises] Respiratory Rate [Recovery] Respiratory Rate [Resting] Respiratory Effort / Characteristics Respiratory Depth Respiratory Pattern Blood Pressure 153/109 H 193/146 H 136/79 Blood Pressure Mean 123 161 98 Blood Pressure Position Pulse Oximetry 94 92 95 Pulse Oximetry [Exercises] Pulse Oximetry [Recovery] Pulse Oximetry [Resting] Oxygen Delivery Method Sepsis Recent Fever Within 48 Hours Sepsis New/Unexplained Change in Mental Status Sepsis Action Taken by Nursing 07/06/21 19:01 07/06/21 19:17 07/06/21 19:30 Temperature Temperature Source Pulse Rate 100 H 100 H Pulse Rate [Exercises] 110 H Pulse Rate [Recovery] 98 H Pulse Rate [Resting] 98 H Pulse Rate from SpO2 Sensor 101 H 100 H Respiratory Rate 28 H 28 H Respiratory Rate [Exercises] 35 H Respiratory Rate [Recovery] 29 H Respiratory Rate [Resting] 26 H Respiratory Effort / Characteristics Respiratory Depth Respiratory Pattern Blood Pressure 101/80 153/67 H Blood Pressure Mean 87 95 Blood Pressure Position Pulse Oximetry 94 93 Pulse Oximetry [Exercises] 92 Pulse Oximetry [Recovery] 95 Pulse Oximetry [Resting] 94 Oxygen Delivery Method Room Air Sepsis Recent Fever Within 48 Hours Sepsis New/Unexplained Change in Mental Status Sepsis Action Taken by Nursing 07/06/21 20:00 07/06/21 20:31 07/06/21 21:01 Temperature Temperature Source Pulse Rate 103 H 112 H 104 H Pulse Rate [Exercises] Pulse Rate [Recovery] Pulse Rate [Resting] Pulse Rate from SpO2 Sensor 103 H 111 H 103 H Respiratory Rate 29 H 23 22 Respiratory Rate [Exercises] Respiratory Rate [Recovery] Respiratory Rate [Resting] Respiratory Effort / Characteristics Respiratory Depth Respiratory Pattern Blood Pressure 155/95 H 180/83 H 160/69 H Blood Pressure Mean 115 115 99 Blood Pressure Position Pulse Oximetry 93 92 92 Pulse Oximetry [Exercises] Pulse Oximetry [Recovery] Pulse Oximetry [Resting] Oxygen Delivery Method Sepsis Recent Fever Within 48 Hours Sepsis New/Unexplained Change in Mental Status Sepsis Action Taken by Nursing 07/06/21 21:30 07/06/21 22:00 Temperature Temperature Source Pulse Rate 100 H 98 H Pulse Rate [Exercises] Pulse Rate [Recovery] Pulse Rate [Resting] Pulse Rate from SpO2 Sensor 100 H 98 H Respiratory Rate 25 H 22 Respiratory Rate [Exercises] Respiratory Rate [Recovery] Respiratory Rate [Resting] Respiratory Effort / Characteristics Respiratory Depth Respiratory Pattern Blood Pressure 173/122 H 119/73 Blood Pressure Mean 139 88 Blood Pressure Position Pulse Oximetry 93 92 Pulse Oximetry [Exercises] Pulse Oximetry [Recovery] Pulse Oximetry [Resting] Oxygen Delivery Method Sepsis Recent Fever Within 48 Hours Sepsis New/Unexplained Change in Mental Status Sepsis Action Taken by Nursing Laboratory Data Result diagrams: 07/06/21 17:13 07/06/21 17:13 Lab Results 07/06/21 07/06/21 07/06/21 Range/Units 17:13 17:13 17:40 WBC 5.82 (4.8-10.8) K/uL RBC 4.13 L (4.7-6.1) M/uL Hgb 14.3 (14.0-18.0) g/dL Hct 42.4 (42-52) % MCV 102.7 H (80-100) fL MCH 34.6 H (25-34) pg MCHC 33.7 (32-36) g/dL RDW Std Deviation 57.8 H (36.4-46.3) fL RDW Coeff of Farideh 15.5 H (11.5-14.5) % Plt Count 206 (130-400) K/uL MPV 10.2 (7.4-10.4) fL Immature Gran % (Auto) 0.3 % Neut % (Auto) 60.8 % Lymph % (Auto) 16.3 % [place] % (Auto) 21.6 % Eos % (Auto) 0.5 % Baso % (Auto) 0.5 % Neut # (Auto) 3.53 (1.4-6.5) K/uL Lymph # (Auto) 0.95 L (1.2-3.4) K/uL [place] # (Auto) 1.26 H (0.11-0.59) K/uL Eos # (Auto) 0.03 (0-0.5) K/uL Baso # (Auto) 0.03 (0-0.2) K/uL Immature Gran # (Auto) 0.02 (0.00-0.02) K/uL Sodium 135 L (136-145) mmol/L Potassium 3.7 (3.5-5.1) mmol/L Chloride 99 (98-107) mmol/L Carbon Dioxide 28 (21-32) mmol/L Anion Gap 8.0 (3-11) BUN 18 (7-18) mg/dl Creatinine 1.12 (0.6-1.4) mg/dl Est Cr Clr Drug Dosing Not Reportable Est GFR ( Amer) 73.6 ml/min Est GFR (Non-Af Amer) 63.5 ml/min BUN/Creatinine Ratio 16.3 (10-20) Glucose 124 H (70-99) mg/dl Calcium 9.3 (8.5-10.1) mg/dl Total Bilirubin 0.6 (0.2-1) mg/dl AST 90 H (15-37) U/L ALT 79 H (12-78) U/L Alkaline Phosphatase 55 (45-117) U/L Troponin I < 0.015 (0-0.045) ng/ml Total Protein 8.3 H (6.4-8.2) gm/dl Albumin 3.9 (3.4-5.0) gm/dl Globulin 4.4 H (2.5-4.0) gm/dl Albumin/Globulin Ratio 0.9 (0.9-2) COVID-19 Eval Order Covid19 [place] [facility] SARS-CoV-2 (PCR) (Negative) SARS-CoV-2 RNA ([facility]) 07/06/21 07/06/21 07/06/21 Range/Units 17:40 17:40 17:40 WBC (4.8-10.8) K/uL RBC (4.7-6.1) M/uL Hgb (14.0-18.0) g/dL Hct (42-52) % MCV (80-100) fL MCH (25-34) pg MCHC (32-36) g/dL RDW Std Deviation (36.4-46.3) fL RDW Coeff of Farideh (11.5-14.5) % Plt Count (130-400) K/uL MPV (7.4-10.4) fL Immature Gran % (Auto) % Neut % (Auto) % Lymph % (Auto) % [place] % (Auto) % Eos % (Auto) % Baso % (Auto) % Neut # (Auto) (1.4-6.5) K/uL Lymph # (Auto) (1.2-3.4) K/uL [place] # (Auto) (0.11-0.59) K/uL Eos # (Auto) (0-0.5) K/uL Baso # (Auto) (0-0.2) K/uL Immature Gran # (Auto) (0.00-0.02) K/uL Sodium (136-145) mmol/L Potassium (3.5-5.1) mmol/L Chloride (98-107) mmol/L Carbon Dioxide (21-32) mmol/L Anion Gap (3-11) BUN (7-18) mg/dl Creatinine (0.6-1.4) mg/dl Est Cr Clr Drug Dosing Est GFR ( Amer) ml/min Est GFR (Non-Af Amer) ml/min BUN/Creatinine Ratio (10-20) Glucose (70-99) mg/dl Calcium (8.5-10.1) mg/dl Total Bilirubin (0.2-1) mg/dl AST (15-37) U/L ALT (12-78) U/L Alkaline Phosphatase (45-117) U/L Troponin I (0-0.045) ng/ml Total Protein (6.4-8.2) gm/dl Albumin (3.4-5.0) gm/dl Globulin (2.5-4.0) gm/dl Albumin/Globulin Ratio (0.9-2) COVID-19 Eval Order Covid19 at [facility] SARS-CoV-2 (PCR) POSITIVE A* (Negative) SARS-CoV-2 RNA ([facility]) Cancelled Administered Medications Discontinued Medications Dexamethasone Sodium Phosphate (DexamethasonePf 10 Mg/Ml Vial) 6 mg IV NOW ONE Stop: 07/06/21 19:01 Last Admin: 07/06/21 19:15 Dose: 6 mg Documented by: [id number] Sodium Chloride (Nss) 250 mls @ 999 mls/hr IV .Q16M ONE Stop: 07/06/21 19:06 Last Infusion: 07/06/21 19:38 Dose: 0 mls/hr Documented by: [id number] Admin: 07/06/21 19:15 Dose: 999 mls/hr Documented by: [id number] Imaging Data Radiologist's Impression: Chest X-Ray 07/06/21 14:42 XR chest 1V portable HISTORY: 76 years-old Male cough acute cough COMPARISON: Chest CT 05/12/2021 TECHNIQUE: Portable AP view the chest FINDINGS: Cardiac silhouette is enlarged. Calcified hilar lymph nodes. Aortic valve endograft. Chronic interstitial coarsening of the lung bases with linear bibasilar atelectasis/scarring. No pneumothorax, pleural effusion, airspace consolidation or overt pulmonary edema. Degenerative changes of the shoulders and spine. The bilateral pulmonary nodules described on comparison CT are not visualized. IMPRESSION: No acute process. ACT 112: Negative or not required by law. The above report was generated using voice recognition software. It may contain grammatical, syntax or spelling errors. Electronically signed by: Hesham Atkinson M.D. 07/06/2021 5:39 PM Discharge Plan Visit Data Chief Complaint: Illness Stated Complaint: HEADACHE,COUGH,SHOULDER PAIN ED Provider: Jagdish Young Discharge Problem: COVID-19, Weakness, Breath shortness, Cough Forms Stand Alone Forms: [facility] Prescriptions Prescriptions: No Action metformin 1,000 mg tablet 1,000 mg PO BID Qty: 180 RF: 1 glimepiride 1 mg tablet 1 mg PO BID Qty: 180 RF: 1 atorvastatin 40 mg tablet 40 mg PO QAM Qty: 90 RF: 1 oxcarbazepine 150 mg tablet 150 mg PO QAM Qty: 90 RF: 1 clopidogrel 75 mg tablet 75 mg PO QPM Qty: 90 RF: 1 pantoprazole 40 mg tablet,delayed release (DR/EC) 40 mg PO QPM Qty: 90 RF: 1 furosemide 20 mg tablet 20 mg PO QAM Qty: 90 RF: 1 amoxicillin 500 mg tablet 2,000 mg PO ONCE Qty: 4 RF: 3 omeprazole 20 mg capsule,delayed release(DR/EC) 20 mg PO QAM Qty: 90 RF: 0 aspirin 81 mg tablet,delayed release (DR/EC) 81 mg PO QAM Qty: 90 RF: 0 loratadine 10 mg tablet 10 mg PO QAM Qty: 90 RF: 0 magnesium oxide 400 mg (241.3 mg magnesium) tablet 400 mg PO QAM RF: 0 hydroxychloroquine 200 mg tablet 200 mg PO BID Qty: 60 RF: 0 multivitamin [Multiple Vitamins] tablet 1 tab PO QAM RF: 0 metoprolol tartrate 100 mg tablet 100 mg PO Q12H Qty: 180 RF: 3 nitroglycerin 0.4 mg tablet, sublingual 0.4 mg SL Q5M PRN (Reason: chest pain) Qty: 25 RF: 3 escitalopram oxalate 10 mg tablet 10 mg PO QAM Qty: 90 RF: 3 ropinirole 0.5 mg tablet 0.75 mg PO HS Qty: 135 RF: 1 (DME) CPAP Supplies Misc See Rx Instructions .MEDSUPPLY Qty: 1 RF: 0 albuterol sulfate 90 mcg/actuation HFA aerosol inhaler 2 inh inhalation Q6H PRN (Reason: shortness of breath or wheezing) Qty: 18 RF: 5 albuterol sulfate 2.5 mg /3 mL (0.083 %) solution for nebulization 2.5 mg inhalation Q4H PRN (Reason: COPD) Qty: 180 RF: 5 montelukast 10 mg tablet 10 mg PO QPM Qty: 90 RF: 3 prednisone 10 mg tablet See Rx Instructions PO DAILY Qty: 20 RF: 0 amoxicillin-pot clavulanate [Augmentin] 875-125 mg tablet 1 tab PO Q12H Qty: 20 RF: 0 cyanocobalamin (vitamin B-12) 1,000 mcg Tablet 1,000 mcg PO BID RF: 0 cholecalciferol (vitamin D3) [Vitamin D3] 25 mcg (1,000 unit) Capsule 25 mcg PO BID RF: 0 potassium gluconate 595 mg (99 mg) Tablet 595 mg PO QAM RF: 0 ascorbic acid (vitamin C) 100 mg tablet 100 mg PO QAM RF: 0 Probiotic 3 billion cell capsule 3,000 mmu cells PO QAM RF: 0 prednisone 5 mg tablet 5 mg PO QAM RF: 0 Incruse Ellipta 62.5 mcg/actuation blister with device 1 inh inhalation QAM RF: 0 Referrals Referrals: Oscar Sullivan, [Primary Care Provider] -
[2021-07-06 17:35] LABS: Basophils # (auto) 0.03 K/uL (0-0.2); Basophils % (auto) 0.5 %; Eosinophils # (auto) 0.03 K/uL (0-0.5); Eosinophils % (auto) 0.5 %; Hematocrit (blood only) 42.4 % (42-52); Hemoglobin 14.3 g/dL (14.0-18.0); Immature Granulocytes # (auto) 0.02 K/uL (0.00-0.02); Immature Granulocytes % (auto) 0.3 %; Lymphocytes # (auto) 0.95 K/uL (1.2-3.4); Lymphocytes % (auto) 16.3 %; Mean Corpuscular Hemoglobin 34.6 pg (25-34); Mean Corpuscular Hgb Conc 33.7 g/dL (32-36); Mean Corpuscular Volume 102.7 fL (80-100); Mean Platelet Volume 10.2 fL (7.4-10.4); Monocytes # (auto) 1.26 K/uL (0.11-0.59); Monocytes % (auto) 21.6 %; Neutrophils # (auto) 3.53 K/uL (1.4-6.5); Neutrophils % (auto) 60.8 %; Platelet Count 206 K/uL (130-400); RDW Coefficient of Variation 15.5 % (11.5-14.5); RDW Standard Deviation 57.8 fL (36.4-46.3); Red Blood Count 4.13 M/uL (4.7-6.1); White Blood Count 5.82 K/uL (4.8-10.8)
--- NOTE | 2021-07-06 17:41 | XRay Report ---
XR chest 1V portable HISTORY: 76 years-old Male cough acute cough COMPARISON: Chest CT 05/12/2021 TECHNIQUE: Portable AP view the chest FINDINGS: Cardiac silhouette is enlarged. Calcified hilar lymph nodes. Aortic valve endograft. Chronic intersti tial coarsening of the lung bases with linear bibasilar atelectasis/scarring. No pneumothorax, pleura l effusion, airspace consolidation or overt pulmonary edema. Degenerative changes of the shoulders an d spine. The bilateral pulmonary nodules described on comparison CT are not visualized. IMPRESSION: No acute process. ACT 112: Negative or not required by law. The above report was generated using voice recognition software. It may contain grammatical, syntax o r spelling errors. Electronically signed by: Hesham Atkinson M.D. 07/06/2021 5:39 PM
[2021-07-06 17:48] LABS: Alanine Aminotransferase 79 U/L (12-78); Albumin Level 3.9 gm/dl (3.4-5.0); Aspartate Aminotransferase 90 U/L (15-37); BUN Creatinine Ratio 16.3 (10-20); Blood Urea Nitrogen 18 mg/dl (7-18); Calcium 9.3 mg/dl (8.5-10.1); Carbon Dioxide 28 mmol/L (21-32); Chloride 99 mmol/L (98-107); Est GFR (African American) 73.6 ml/min; Est GFR (Non-African American) 63.5 ml/min; Glucose 124 mg/dl (70-99); Potassium 3.7 mmol/L (3.5-5.1); Sodium 135 mmol/L (136-145)
[2021-07-06 17:53] LABS: Albumin Globulin Ratio 0.9 (0.9-2); Alkaline Phosphatase 55 U/L (45-117); Bilirubin,Total 0.6 mg/dl (0.2-1); Globulin 4.4 gm/dl (2.5-4.0); Total Protein 8.3 gm/dl (6.4-8.2); Troponin I < 0.015 ng/ml (0-0.045)
[2021-07-06] MEDS ORDERED: SODIUM CHLORIDE 0.9% 250 ML IV ONE (18:51)
[2021-07-06] MEDS ORDERED: dexAMETHasone**PF** 10 MG/ML VIAL IV ONE (19:00)
[2021-07-06] MEDS ORDERED: REMDESIVIR 200 MG in SODIUM CHLORIDE 0.9% 210 ML IV STA (21:55)
--- NOTE | 2021-07-06 22:16 | History & Physical Report ---
Date of Service July 06, 2021 Assessment & Plan (1) COVID-19: Plan: Mr. Arevalo is a 76 yo gentleman with a PMHx of COPD, type II diabetes and on immunosuppressive therapy for rheumatoid arthritis who presented for evaluation of new onset cough and congestion, found to have COVID 19. - O2 sat < 94 on room air, RR was > 30; severe illness - check d dimer, LDH, CRP, ferritin and procal - continue dexamethasone 6mg IV daily - start Remdesirvir - will hold off on pulm consult - patient unlikely to be a candidate for Tocilizumab due to active immunosuppressive therapy (Plaquenil) - although reconsider if patient ends up having an oxygen requirement - hold off an azithro as lungs appear clear (no superimposed PNA on CXR); consider adding if procal returns elevated - zinc sulfate 220mg - vitamin D 5,000 IU (2) COPD (chronic obstructive pulmonary disease): Plan: - continue home inhalers + montelukast (3) Transaminitis: Plan: - AST 90, ALT 79 - suspect secondary to acute COVID 19 infection - trend CMP (4) Obstructive sleep apnea: Plan: - continue home CPAP (5) Macrocytosis: Plan: - MCV 102 - will check folate, B12 level - no eoth use (6) Rheumatoid arthritis: Plan: - continue Plaquenil for rheumatologic conditions - although consider stopping if azithromycin and/or tocilizumab is eventually added (7) Type 2 diabetes mellitus: Plan: - last known HbA1c 7.0 in 07/2020; recheck level in am - hold home oral anti-glycemics - blood glucose checks achs - Slide scale insulin while inpatient - continue home dose statin - carb consistent diet (8) CAD (coronary artery disease): Plan: - continue home dose statin, asa, metoprolol (9) Dementia: Plan: - history of - high risk for delirium while hospitalized - frequent reorientation (10) Depression: Plan: - continue home escitalopram Diet: carb consistent, heart healthy DVT ppx: Lovenox, covid protocol Dispo: Med/tele. Covid precautions Code: DNR/DNI, I discussed with patient History of Present Illness Chief Complaint: Covid-19 infection Primary Care Provider: Oscar Sullivan DO Mr. Arevalo is a 76 yo gentleman with a PHMx of COPD, type II diabetes mellitus, and rheumatoid arthritis (on plaquenil) who presented for evaluation of new onset cough, congestion and sore throat. Symptoms started today. He and his did have visitors in from out of state the past few days - none of them appeared to be sick. He and his were both fully vaccinated against COVID 19. Of note he follows with [facility] for his COPD - he was seen for a routine follow up on 06/29/21 at which time Mr. Arevalo mentioned a slight increase in his sputum production. His provider started him on augmentin and a prednisone taper for a presumptive COPD exacerbation. He denies losing his sense of taste or smell. No fevers/chills, nausea/vomiting, diarrhea, chest pain, SOB, or rashes. On arrival to the ED, he was afebrile, his HR was mildly elevated to 110bpm, his BP was 136/79; RR was elevated to 35, O2 sat was as low as 92% on room air. His WBC was normal, although he was lymphopenic. His Hgb was normal, although his MCV was elevated to 102. Kidney function and electrolytes were WNL. His AST was elevated to 90, ALT to 79. Trop was undetectable. COVID 19 positive. EGK showing NSR. CXR showing no active disease. He was given a liter of NSS and 1 dose of Dexamethasone. Allergies Allergy/AdvReac Type Severity Reaction Status Date / Time auranofin Allergy Severe SHORTNESS Verified 06/29/21 09:50 OF BREATH Gold Salts Allergy Unknown HIVES TO Verified 06/29/21 09:50 GOLD SHOTS Home Medications Medication Instructions Recorded Confirmed Type omeprazole 20 mg capsule,delayed 20 mg PO QAM #90 cap 06/03/19 07/06/21 History release multivitamin (Multiple Vitamins) 1 tab PO QAM 06/19/19 07/06/21 History aspirin 81 mg tablet,delayed 81 mg PO QAM #90 tab 07/09/19 07/06/21 History release hydroxychloroquine 200 mg tablet 200 mg PO BID #60 tab 07/09/19 07/06/21 History loratadine 10 mg tablet 10 mg PO QAM #90 tab 07/09/19 07/06/21 History magnesium oxide 400 mg (241.3 mg 400 mg PO QAM tab 07/09/19 07/06/21 History magnesium) tablet cholecalciferol (vitamin D3) 25 25 mcg PO BID 12/12/19 07/06/21 History mcg (1,000 unit) capsule (Vitamin D3) cyanocobalamin (vitamin B-12) 1,000 mcg PO BID 12/12/19 07/06/21 History 1,000 mcg tablet potassium gluconate 595 mg (99 mg) 595 mg PO QAM 12/12/19 07/06/21 History tablet albuterol sulfate 2.5 mg INHALATION Q4H PRN #180 ml 09/01/20 07/06/21 Rx albuterol sulfate 90 mcg/actuation 2 inh INHALATION Q6H PRN #18 g 09/01/20 07/06/21 Rx aerosol inhaler montelukast 10 mg tablet 10 mg PO QPM #90 tab 01/03/21 07/06/21 Rx metformin 1,000 mg tablet 1,000 mg PO BID #180 tab 01/12/21 07/06/21 Rx CPAP Supplies #1 ea 03/16/21 07/06/21 Rx glimepiride 1 mg tablet 1 mg PO BID #180 tab 03/29/21 07/06/21 Rx prednisone 5 mg tablet 5 mg PO QAM 03/31/21 07/06/21 History umeclidinium 62.5 mcg/actuation 1 inh INHALATION QAM 03/31/21 07/06/21 History blister powder for inhalation (Incruse Ellipta) atorvastatin 40 mg tablet 40 mg PO QAM #90 tab 04/13/21 07/06/21 Rx ascorbic acid (vitamin C) 100 mg 100 mg PO QAM tab 05/10/21 07/06/21 History tablet lactobacillus combination no.4 3 3,000 mmu cells PO QAM cap 05/10/21 07/06/21 History billion cell capsule (Probiotic) metoprolol tartrate 100 mg tablet 100 mg PO Q12H #180 tab 05/10/21 07/06/21 Rx nitroglycerin 0.4 mg sublingual 0.4 mg SL Q5M PRN #25 tab 05/10/21 07/06/21 Rx tablet oxcarbazepine 150 mg tablet 150 mg PO QAM #90 tab 05/22/21 07/06/21 Rx clopidogrel 75 mg tablet 75 mg PO QPM #90 tab 06/06/21 07/06/21 Rx pantoprazole 40 mg tablet,delayed 40 mg PO QPM #90 tab 06/06/21 07/06/21 Rx release escitalopram oxalate 10 mg tablet 10 mg PO QAM #90 tab 06/28/21 07/06/21 Rx ropinirole 0.5 mg tablet 0.75 mg PO HS #135 tab 06/28/21 07/06/21 Rx amoxicillin 875 mg-potassium 1 tab PO Q12H #20 tab 06/29/21 07/06/21 Rx clavulanate 125 mg tablet (Augmentin) prednisone 10 mg tablet See Rx Instructions PO DAILY #20 06/29/21 07/06/21 Rx tab amoxicillin 500 mg tablet 2,000 mg PO ONCE #4 tab 07/03/21 07/06/21 Rx furosemide 20 mg tablet 20 mg PO QAM #90 tab 07/03/21 07/06/21 Rx Past Med/Surg History Medical History Alzheimer's disease Anxiety Aortic stenosis F/U DR FERRARA-AVR [place] [facility] [place] HX-2-3 YRS AGO Chronic low back pain Chronic obstructive pulmonary disease CKD (chronic kidney disease) F/U DR BOONE Depression Essential hypertension Hiatal hernia Hyperlipidemia Obesity Obstructive sleep apnea CPAP Osteoarthritis of knee Peptic ulcer HX Presence of drug-eluting stent in right coronary artery Restless legs Restrictive lung disease Rheumatoid arthritis Rheumatoid arthritis F/U DR MO Short-term memory loss SOB (shortness of breath) on exertion Tachycardia HX Tubular adenoma of colon Type 2 diabetes mellitus Venous insufficiency Surgical History H/O colonoscopy 2016 History of foot surgery CYSTS REMOVED-LEFT History of total knee replacement RIGHT Hx of appendectomy S/P AV[place] [facility] [place] S/P cardiac catheterization 11/2019 [facility] 1 STENT S/P TAVR (transcatheter aortic valve replacement) Status post cardiac catheterization Family History Mother Diabetes Coronary heart disease Hypertension Brother Hypertension Sister Hypertension Father Hypertension Denies family history of Ovarian cancer Prostate cancer Myocardial infarction Breast cancer Colorectal cancer Social History (Reviewed 07/07/21 @ 02:41 by TRINIDAD Huynh Smoking Status: Former smoker Smoking End Date: Within the past year; Number of Years Since Quit: 43; Second Hand Exposure: No; Do You Dip or Chew Tobacco: No; Tobacco Cessation Education Requested by Patient: No Hx Alcohol Use: No Hx Substance Use: No Preferred Language: Australian Communication Ability: Effective Visual Impairment: No Limitations Hearing Ability: Hard of Hearing Delivery Rep Required: No Beliefs That Will Affect Care: None marital status: Current Living Situation: Spouse Current Living Situation Comment: Lives w/ spouse @ home current occupational status: retired Feels Safe at Home: Yes Safety Concerns: Feels Safe At This Time Dental Care, Regularly: Yes Physical Activity Frequency: Does not Exercise Seatbelt Use: always Assistive Devices: None Assistive Devices Comment: Wears CPAP HS Review of Systems Review of Systems: All systems reviewed & are unremarkable except as noted in HPI & below Physical Exam Constitutional: WD/WN, vitals as above + obese, cooperative and comfortable; no acute distress Eyes: + anicteric sclerae ENMT: external ear and nose normal, oropharynx normal Neck: trachea midline Respiratory: normal respiratory effort, + cough and + tachypneic; no respiratory distress and no labored breathing Auscultation: no crackles and no wheezes Cardiovascular: Rate/Rhythm: regular rhythm and + tachycardic Heart Sounds: normal S1 and normal S2; no murmur Extremities: no pedal edema Gastrointestinal (Abdomen): normal bowel sounds, soft, nontender, no hepatosplenomegaly Musculoskeletal: Head/Neck/Chest: normocephalic and head atraumatic Skin: no rashes, warm and dry Neurologic: moves all extremities Psychiatric: A+Ox3, euthymic affect Results & Data Results & Data ([facility]) Vital Signs (Past 12 Hours) Vital Signs Temp Pulse Pulse Pulse Pulse Resp Resp 07/06/21 21:01 104 H 22 07/06/21 20:31 112 H 23 07/06/21 20:00 103 H 29 H 07/06/21 19:30 100 H 28 H 07/06/21 19:17 110 H 98 H 98 H 35 H 07/06/21 19:01 100 H 28 H 07/06/21 18:54 106 H 22 07/06/21 18:31 101 H 29 H 07/06/21 18:00 101 H 28 H 07/06/21 17:30 99 H 28 H 07/06/21 17:05 92 H 28 H 07/06/21 14:24 36.5 C 97 H 22 Resp Resp BP Pulse Ox Pulse Ox Pulse Ox Pulse Ox 07/06/21 21:01 160/69 H 92 07/06/21 20:31 180/83 H 92 07/06/21 20:00 155/95 H 93 07/06/21 19:30 153/67 H 93 07/06/21 19:17 29 H 26 H 92 95 94 07/06/21 19:01 101/80 94 07/06/21 18:54 136/79 95 07/06/21 18:31 193/146 H 92 07/06/21 18:00 153/109 H 94 07/06/21 17:30 168/104 H 94 07/06/21 17:05 133/88 94 07/06/21 14:24 123/75 96 Laboratory Results Laboratory Results WBC 5.82 K/uL (4.8-10.8) 07/06/21 17:13 RBC 4.13 M/uL (4.7-6.1) L 07/06/21 17:13 Hgb 14.3 g/dL (14.0-18.0) 07/06/21 17:13 Hct 42.4 % (42-52) 07/06/21 17:13 MCV 102.7 fL (80-100) H 07/06/21 17:13 MCH 34.6 pg (25-34) H 07/06/21 17:13 MCHC 33.7 g/dL (32-36) 07/06/21 17:13 RDW Std Deviation 57.8 fL (36.4-46.3) H 07/06/21 17:13 RDW Coeff of Farideh 15.5 % (11.5-14.5) H 07/06/21 17:13 Plt Count 206 K/uL (130-400) 07/06/21 17:13 MPV 10.2 fL (7.4-10.4) 07/06/21 17:13 Immature Gran % (Auto) 0.3 % 07/06/21 17:13 Neut % (Auto) 60.8 % 07/06/21 17:13 Lymph % (Auto) 16.3 % 07/06/21 17:13 Marion % (Auto) 21.6 % 07/06/21 17:13 Eos % (Auto) 0.5 % 07/06/21 17:13 Baso % (Auto) 0.5 % 07/06/21 17:13 Neut # (Auto) 3.53 K/uL (1.4-6.5) 07/06/21 17:13 Lymph # (Auto) 0.95 K/uL (1.2-3.4) L 07/06/21 17:13 Marion # (Auto) 1.26 K/uL (0.11-0.59) H 07/06/21 17:13 Eos # (Auto) 0.03 K/uL (0-0.5) 07/06/21 17:13 Baso # (Auto) 0.03 K/uL (0-0.2) 07/06/21 17:13 Immature Gran # (Auto) 0.02 K/uL (0.00-0.02) 07/06/21 17:13 Sodium 135 mmol/L (136-145) L 07/06/21 17:13 Potassium 3.7 mmol/L (3.5-5.1) 07/06/21 17:13 Chloride 99 mmol/L (98-107) 07/06/21 17:13 Carbon Dioxide 28 mmol/L (21-32) 07/06/21 17:13 Anion Gap 8.0 (3-11) 07/06/21 17:13 BUN 18 mg/dl (7-18) 07/06/21 17:13 Creatinine 1.12 mg/dl (0.6-1.4) 07/06/21 17:13 Est Cr Clr Drug Dosing Not Reportable 07/06/21 17:13 Est GFR ( Amer) 73.6 ml/min 07/06/21 17:13 Est GFR (Non-Af Amer) 63.5 ml/min 07/06/21 17:13 BUN/Creatinine Ratio 16.3 (10-20) 07/06/21 17:13 Glucose 124 mg/dl (70-99) H 07/06/21 17:13 POC Glucose 193 mg/dl (70-99) H 07/07/21 01:34 Calcium 9.3 mg/dl (8.5-10.1) 07/06/21 17:13 Ferritin 186.6 ng/ml (8-388) 07/06/21 17:13 Total Bilirubin 0.6 mg/dl (0.2-1) 07/06/21 17:13 AST 90 U/L (15-37) H 07/06/21 17:13 ALT 79 U/L (12-78) H 07/06/21 17:13 Alkaline Phosphatase 55 U/L (45-117) 07/06/21 17:13 Troponin I < 0.015 ng/ml (0-0.045) 07/06/21 17:13 C-Reactive Protein 4.86 mg/dl (0-0.29) H 07/06/21 17:13 Total Protein 8.3 gm/dl (6.4-8.2) H 07/06/21 17:13 Albumin 3.9 gm/dl (3.4-5.0) 07/06/21 17:13 Globulin 4.4 gm/dl (2.5-4.0) H 07/06/21 17:13 Albumin/Globulin Ratio 0.9 (0.9-2) 07/06/21 17:13 Procalcitonin < 0.05 ng/ml (0-0.5) 07/06/21 17:13 COVID-19 Eval Order Covid19 [place] [facility] 07/06/21 17:40 COVID-19 Eval Order Covid19 at [facility] 07/06/21 17:40 SARS-CoV-2 (PCR) POSITIVE (Negative) A* 07/06/21 17:40 SARS-CoV-2 RNA ([facility]) Cancelled 07/06/21 17:40 Impressions Chest X-Ray 07/06/21 14:42 XR chest 1V portable HISTORY: 76 years-old Male cough acute cough COMPARISON: Chest CT 05/12/2021 TECHNIQUE: Portable AP view the chest FINDINGS: Cardiac silhouette is enlarged. Calcified hilar lymph nodes. Aortic valve endograft. Chronic interstitial coarsening of the lung bases with linear bibasilar atelectasis/scarring. No pneumothorax, pleural effusion, airspace consolidation or overt pulmonary edema. Degenerative changes of the shoulders an d spine. The bilateral pulmonary nodules described on comparison CT are not visualized. IMPRESSION: No acute process. ACT 112: Negative or not required by law. The above report was generated using voice recognition software. It may contain grammatical, syntax or spelling errors. Electronically signed by: Hesham Atkinson M.D. 07/06/2021 5:39 PM Supervising Physician Co-Signing Physician Notes Patient seen and examined, chart reviewed, case discussed with Dr. James and I agree with her assessment and plan as documented above. In brief, patient is a 76yo male with history of RA on Plaquenil therapy, COPD and CKD presenting with Covid-19 infection. Patient was fully vaccinated against Covid - presents with cough and congestion and found to be Covid POSITIVE In ER he was noted to be tachypneic with RR > 30, saturation to 92% on room air. Patient does not use supplemental O2 at home On exam he is nontoxic in appearance, no respiratory distress, speaking in complete sentences with frequent coughing Skin - intact HEENT - NC/AT, PERRL, MMM, Neck supple Heart - +S1/S2, regular, no m/r/g Lungs - CTA Abd - ventral hernia, no masses/organomegaly/edema Ext - well perfused Assessment/Plan - Covid-19 infection in vaccinated patient on immunosuppressive therapy. Symptomatic with cough and congestion. Vital signs in ER with decreased saturation of 92% as well as tachypnea -Administered Dexamethasone and Remdesivir -Remainder of plan as above Resident Activity Tracking Resident Involvement: Resident Care Provided Care Provided: Adult Hospital Medicine
[2021-07-07] MEDS ORDERED: GLUCOSE 10 TABS/TUBE PO PRN (01:21)
[2021-07-07] MEDS ORDERED: POLYETHYLENE (MIRALAX) 17 GM PACK PO PRN (01:21)
[2021-07-07] MEDS ORDERED: GLUCOSE 40% GEL 15 GM TUBE PO PRN (01:21)
[2021-07-07] MEDS ORDERED: GLUCAGON FOR INJ 1 MG VIAL SQ PRN (01:21)
[2021-07-07] MEDS ORDERED: SODIUM CHLORIDE 0.9% 10ML FLUSH IV SCH ×3 (01:21→21:00)
[2021-07-07] MEDS ORDERED: ACETAMINOPHEN 325 MG TAB PO PRN (01:21)
[2021-07-07] MEDS ORDERED: ALBUTEROL HFA 8 GM INHALER INH PRN (01:21)
[2021-07-07] MEDS ORDERED: CARBOHYDRATES FOR HYPOGLYCEMIA PO PRN (01:21)
[2021-07-07] MEDS ORDERED: ONDANSETRON INJ 2 MG/ML 2 ML VIAL IV PRN (01:21)
[2021-07-07] MEDS ORDERED: DEXTROSE 50% 50 ML SYRINGE IV PRN (01:21)
[2021-07-07] MEDS: METOPROLOL TARTRATE 100 MG TAB PO SCH ×3 (02:15→20:55)
[2021-07-07 02:30] LABS: C Reactive Protein 4.86 mg/dl (0-0.29); Ferritin 186.6 ng/ml (8-388)
--- NOTE | 2021-07-07 03:21 | History & Physical Report ---
Date of Service July 06, 2021 Assessment & Plan Admission and Anticipated Discharge Date Admission Date: July 06, 2021 History of Present Illness Primary Care Provider: Oscar Sullivan DO Allergies Allergy/AdvReac Type Severity Reaction Status Date / Time auranofin Allergy Severe SHORTNESS Verified 06/29/21 09:50 OF BREATH Gold Salts Allergy Unknown HIVES TO Verified 06/29/21 09:50 GOLD SHOTS Home Medications Medication Instructions Recorded Confirmed Type omeprazole 20 mg capsule,delayed 20 mg PO QAM #90 cap 06/03/19 07/06/21 History release multivitamin (Multiple Vitamins) 1 tab PO QAM 06/19/19 07/06/21 History aspirin 81 mg tablet,delayed 81 mg PO QAM #90 tab 07/09/19 07/06/21 History release hydroxychloroquine 200 mg tablet 200 mg PO BID #60 tab 07/09/19 07/06/21 History loratadine 10 mg tablet 10 mg PO QAM #90 tab 07/09/19 07/06/21 History magnesium oxide 400 mg (241.3 mg 400 mg PO QAM tab 07/09/19 07/06/21 History magnesium) tablet cholecalciferol (vitamin D3) 25 25 mcg PO BID 12/12/19 07/06/21 History mcg (1,000 unit) capsule (Vitamin D3) cyanocobalamin (vitamin B-12) 1,000 mcg PO BID 12/12/19 07/06/21 History 1,000 mcg tablet potassium gluconate 595 mg (99 mg) 595 mg PO QAM 12/12/19 07/06/21 History tablet albuterol sulfate 2.5 mg INHALATION Q4H PRN #180 ml 09/01/20 07/06/21 Rx albuterol sulfate 90 mcg/actuation 2 inh INHALATION Q6H PRN #18 g 09/01/20 07/06/21 Rx aerosol inhaler montelukast 10 mg tablet 10 mg PO QPM #90 tab 01/03/21 07/06/21 Rx metformin 1,000 mg tablet 1,000 mg PO BID #180 tab 01/12/21 07/06/21 Rx CPAP Supplies #1 ea 03/16/21 07/06/21 Rx glimepiride 1 mg tablet 1 mg PO BID #180 tab 03/29/21 07/06/21 Rx prednisone 5 mg tablet 5 mg PO QAM 05/07/21 08/12/21 History umeclidinium 62.5 mcg/actuation 1 inh INHALATION QAM 03/31/21 07/06/21 History blister powder for inhalation (Incruse Ellipta) atorvastatin 40 mg tablet 40 mg PO QAM #90 tab 04/13/21 07/06/21 Rx ascorbic acid (vitamin C) 100 mg 100 mg PO QAM tab 05/10/21 07/06/21 History tablet lactobacillus combination no.4 3 3,000 mmu cells PO QAM cap 05/10/21 07/06/21 History billion cell capsule (Probiotic) metoprolol tartrate 100 mg tablet 100 mg PO Q12H #180 tab 05/10/21 07/06/21 Rx nitroglycerin 0.4 mg sublingual 0.4 mg SL Q5M PRN #25 tab 05/10/21 07/06/21 Rx tablet oxcarbazepine 150 mg tablet 150 mg PO QAM #90 tab 05/22/21 07/06/21 Rx clopidogrel 75 mg tablet 75 mg PO QPM #90 tab 06/06/21 07/06/21 Rx pantoprazole 40 mg tablet,delayed 40 mg PO QPM #90 tab 06/06/21 07/06/21 Rx release escitalopram oxalate 10 mg tablet 10 mg PO QAM #90 tab 06/28/21 07/06/21 Rx ropinirole 0.5 mg tablet 0.75 mg PO HS #135 tab 06/28/21 07/06/21 Rx amoxicillin 875 mg-potassium 1 tab PO Q12H #20 tab 06/29/21 07/06/21 Rx clavulanate 125 mg tablet (Augmentin) prednisone 10 mg tablet See Rx Instructions PO DAILY #20 06/29/21 07/06/21 Rx tab amoxicillin 500 mg tablet 2,000 mg PO ONCE #4 tab 07/03/21 07/06/21 Rx furosemide 20 mg tablet 20 mg PO QAM #90 tab 07/03/21 07/06/21 Rx Past Med/Surg History Medical History Alzheimer's disease Anxiety Aortic stenosis F/[place] DR FERRARA[place] [facility] [place] HX-2-3 YRS AGO Chronic low back pain Chronic obstructive pulmonary disease CKD (chronic kidney disease) F/U DR BOONE Depression Essential hypertension Hiatal hernia Hyperlipidemia Obesity Obstructive sleep apnea CPAP Osteoarthritis of knee Peptic ulcer HX Presence of drug-eluting stent in right coronary artery Restless legs Restrictive lung disease Rheumatoid arthritis Rheumatoid arthritis F/U DR MO Short-term memory loss SOB (shortness of breath) on exertion Tachycardia HX Tubular adenoma of colon Type 2 diabetes mellitus Venous insufficiency Surgical History H/O colonoscopy 2016 History of foot surgery CYSTS REMOVED-LEFT History of total knee replacement RIGHT Hx of appendectomy S/[place] [facility] [place] S/P cardiac catheterization 11/2019 [facility] 1 STENT S/P TAVR (transcatheter aortic valve replacement) Status post cardiac catheterization Family History Mother Diabetes Coronary heart disease Hypertension Brother Hypertension Sister Hypertension Father Hypertension Denies family history of Ovarian cancer Prostate cancer Myocardial infarction Breast cancer Colorectal cancer Social History Smoking Status: Former smoker Smoking End Date: Within the past year; Number of Years Since Quit: 43; Second Hand Exposure: No; Do You Dip or Chew Tobacco: No; Tobacco Cessation Education Requested by Patient: No Hx Alcohol Use: No Hx Substance Use: No Preferred Language: Lithuanian Communication Ability: Effective Visual Impairment: No Limitations Hearing Ability: Hard of Hearing Turnaround Planner Required: No Beliefs That Will Affect Care: None marital status: Current Living Situation: Spouse Current Living Situation Comment: Lives w/ spouse @ home current occupational status: retired Feels Safe at Home: Yes Safety Concerns: Feels Safe At This Time Dental Care, Regularly: Yes Physical Activity Frequency: Does not Exercise Seatbelt Use: always Assistive Devices: None Assistive Devices Comment: Wears CPAP HS Results & Data Results [facility] Data ([facility]) Vital Signs (Past 12 Hours) Vital Signs Temp Pulse Pulse Pulse Pulse Pulse Resp 07/07/21 01:21 36.5 C 89 88 20 07/07/21 01:06 36.5 C 88 20 07/07/21 00:30 84 24 07/07/21 00:00 96 H 22 07/06/21 23:30 96 H 24 07/06/21 23:01 93 H 21 07/06/21 22:30 94 H 28 H 07/06/21 22:00 98 H 22 07/06/21 21:30 100 H 25 H 07/06/21 21:01 104 H 22 07/06/21 20:31 112 H 23 07/06/21 20:00 103 H 29 H 07/06/21 19:30 100 H 28 H 07/06/21 19:17 110 H 98 H 98 H 07/06/21 19:01 100 H 28 H 07/06/21 18:54 106 H 22 07/06/21 18:31 101 H 29 H 07/06/21 18:00 101 H 28 H 07/06/21 17:30 99 H 28 H 07/06/21 17:05 92 H 28 H Resp Resp Resp BP BP Pulse Ox Pulse Ox 07/07/21 01:21 163/88 H 96 07/07/21 01:06 163/88 H 96 07/07/21 00:30 146/77 H 92 07/07/21 00:00 139/111 H 93 07/06/21 23:30 187/101 H 96 07/06/21 23:01 160/93 H 93 07/06/21 22:30 137/65 93 07/06/21 22:00 119/73 92 07/06/21 21:30 173/122 H 93 07/06/21 21:01 160/69 H 92 07/06/21 20:31 180/83 H 92 07/06/21 20:00 155/95 H 93 07/06/21 19:30 153/67 H 93 07/06/21 19:17 35 H 29 H 26 H 92 07/06/21 19:01 101/80 94 07/06/21 18:54 136/79 95 07/06/21 18:31 193/146 H 92 07/06/21 18:00 153/109 H 94 07/06/21 17:30 168/104 H 94 07/06/21 17:05 133/88 94 Pulse Ox Pulse Ox Pulse Ox 07/07/21 01:21 96 07/07/21 01:06 07/07/21 00:30 07/07/21 00:00 07/06/21 23:30 07/06/21 23:01 07/06/21 22:30 07/06/21 22:00 08/12/21 21:30 07/06/21 21:01 07/06/21 20:31 07/06/21 20:00 07/06/21 19:30 07/06/21 19:17 95 94 07/06/21 19:01 07/06/21 18:54 07/06/21 18:31 07/06/21 18:00 07/06/21 17:30 07/06/21 17:05 PG Care Time/CCT Total # of Minutes Spent Total Time Spent with Patient: Total time spent is greater than 50% in coordi nation of care (as documented) at patient's floor/unit and/or counseling patient: Coding
--- NOTE | 2021-07-07 03:23 | Billing Data ---
Date of Service July 06, 2021 Coding Level of Care Code 26624 Initial Inpt Care Lvl 3
[2021-07-07] MEDS: ENOXAPARIN INJ 40 MG/0.4 ML SYR SQ SCH ×2 (05:12→17:48)
[2021-07-07 06:11] LABS: Basophils # (auto) 0.01 K/uL (0-0.2); Basophils % (auto) 0.2 %; Hematocrit (blood only) 38.8 % (42-52); Hemoglobin 12.7 g/dL (14.0-18.0); Immature Granulocytes # (auto) 0.02 K/uL (0.00-0.02); Immature Granulocytes % (auto) 0.4 %; Lymphocytes # (auto) 0.49 K/uL (1.2-3.4); Mean Corpuscular Hemoglobin 33.7 pg (25-34); Mean Corpuscular Hgb Conc 32.7 g/dL (32-36); Mean Corpuscular Volume 102.9 fL (80-100); Mean Platelet Volume 10.3 fL (7.4-10.4); Monocytes # (auto) 0.51 K/uL (0.11-0.59); Monocytes % (auto) 10.4 %; Neutrophils # (auto) 3.86 K/uL (1.4-6.5); Platelet Count 189 K/uL (130-400); RDW Coefficient of Variation 15.7 % (11.5-14.5); RDW Standard Deviation 58.5 fL (36.4-46.3); Red Blood Count 3.77 M/uL (4.7-6.1); White Blood Count 4.89 K/uL (4.8-10.8)
[2021-07-07 06:27] LABS: D Dimer 750 ug/L FEU (0-500)
[2021-07-07 06:53] LABS: Albumin Globulin Ratio 0.9 (0.9-2); Albumin Level 3.4 gm/dl (3.4-5.0); BUN Creatinine Ratio 18.6 (10-20); Bilirubin,Total 0.5 mg/dl (0.2-1); Calcium 8.5 mg/dl (8.5-10.1); Creatinine Clr Calc Pharmacy 56.3 ml/min; Est GFR (African American) 61.4 ml/min; Potassium 4.4 mmol/L (3.5-5.1); Total Protein 7.4 gm/dl (6.4-8.2)
[2021-07-07 07:14] LABS: Estimated Average Glucose 163 mg/dl; Hemoglobin A1C 7.3 % (4.5-5.6)
--- NOTE | 2021-07-07 08:03 | Hospitalist Progress Note ---
Date of Service July 07, 2021 Assessment & Plan (1) COVID-19: Plan: Mr. Arevalo is a 76 yo gentleman with a PMHx of COPD, type II diabetes and on immunosuppressive therapy for rheumatoid arthritis who presented for evaluation of new onset cough and congestion, found to have COVID 19. initially sounded much worse now stable - O2 sat < 94 on room air, RR was > 30; -Elevated d dimer 01/01/1970, CRP 4.86, procal negative - continue dexamethasone 6mg IV daily - started Remdesirvir - hold off an azithro as lungs appear clear (no superimposed PNA on CXR); consider adding if procal returns elevated - zinc sulfate 220mg - vitamin D 5,000 IU (2) COPD (chronic obstructive pulmonary disease): Plan: - continue home inhalers + montelukast (3) Transaminitis: Plan: - initially AST 90, ALT 79- improved - suspect secondary to acute COVID 19 infection - (4) Obstructive sleep apnea: Plan: - continue home CPAP (5) Macrocytosis: Plan: - MCV 102 - folate, B12 level pending - no eoth use (6) Rheumatoid arthritis: Plan: - continue Plaquenil for rheumatologic conditions - although consider stopping if azithromycin and/or tocilizumab is eventually added (7) Type 2 diabetes mellitus: Plan: - last known HbA1c 7.0 in 07/2020; recheck level in am - hold home oral anti-glycemics - blood glucose checks achs - Slide scale insulin while inpatient - continue home dose statin - carb consistent diet (8) CAD (coronary artery disease): Plan: - continue home dose statin, asa, metoprolol (9) Dementia: Plan: - history of - high risk for delirium while hospitalized - frequent reorientation (10) Depression: Plan: - continue home escitalopram Diet: carb consistent, heart healthy DVT ppx: Lovenox, covid protocol Dispo: Med/tele. Covid precautions Code: DNR/DNI, I discussed with patient Admission and Anticipated Discharge Date Admission Date: July 06, 2021 Subjective Patient states he feels a bit tired he is a nonproductive cough otherwise he has no diarrhea loss or taste of smell Review of Systems Review of Systems: Mild distress and fatigue no headache, no visual changes no speech or swallowing issues no chest pain, pressure or palpitations Exertional shortness of breath, nonproductive cough or wheezes no abdominal pain, nausea or vomiting, diarrhea or constipation no dysuria, hematuria or frequency no focal joint pain or swelling no back pain, CVA tenderness or radicular pain no bruising, bleeding or rashes no focal signs of weakness or numbness or altered sensation no complaints of anxiety or depression.. Physical Exam Physical Exam: The patient appeared well nourished and normally developed. Vital signs as documented. Head exam is normocephalic atraumatic Neck is without JVD, thyromegaly, or carotid bruits. Lungs are clear to auscultation, but overall is poor air movement but no focal loss or rhonchi heard Cardiac exam, Rhythm is regular.. No murmurs, rubs or gallops. Abdominal exam reveals normal bowel sounds, soft non tender, no masses Extremities are nonedematous and both pedal pulses are present Neurologic exam is alert and oriented, no focal loss of strength or sensation Skin is without bruises or rashes Psychologically is without concerns for anxiety or depression Results & Data Results & Data ([facility]) Vital Signs (Past 12 Hours) Vital Signs Temp Pulse Pulse Resp BP BP Pulse Ox 07/07/21 05:30 98.1 F 82 18 166/109 H 92 07/07/21 03:30 88 20 94 07/07/21 01:21 97.7 F 89 88 20 163/88 H 96 07/07/21 01:06 97.7 F 88 20 163/88 H 96 07/07/21 00:30 84 24 146/77 H 92 07/07/21 00:00 96 H 22 139/111 H 93 07/06/21 23:30 96 H 24 187/101 H 96 07/06/21 23:01 93 H 21 160/93 H 93 07/06/21 22:30 94 H 28 H 137/65 93 07/06/21 22:00 98 H 22 119/73 92 07/06/21 21:30 100 H 25 H 173/122 H 93 07/06/21 21:01 104 H 22 160/69 H 92 07/06/21 20:31 112 H 23 180/83 H 92 07/06/21 20:00 103 H 29 H 155/95 H 93 Pulse Ox 07/07/21 05:30 07/07/21 03:30 07/07/21 01:21 96 07/07/21 01:06 07/07/21 00:30 07/07/21 00:00 07/06/21 23:30 07/06/21 23:01 07/06/21 22:30 07/06/21 22:00 07/06/21 21:30 07/06/21 21:01 07/06/21 20:31 07/06/21 20:00 PG Care Time/CCT Total # of Minutes Spent Total Time Spent with Patient: Total time spent is greater than 50% in coordination of care (as documented) at patient's floor/unit and/or counseling patient: Coding Level of Care Code 56323 Subseq Hosp Care Lvl 3 Diagnoses COVID-19 U07.1 COPD (chronic obstructive pulmonary disease) J44.9 Transaminitis R74.01 Obstructive sleep apnea G47.33 Macrocytosis D75.89 Rheumatoid arthritis M06.9 Type 2 diabetes mellitus E11.9 CAD (coronary artery disease) I25.10 Dementia F03.90 Depression F32.9
[2021-07-07 08:06] LABS: Folate (Folic Acid) 18.9 ng/ml (>5.38)
[2021-07-07] MEDS ORDERED: NON-FORMULARY MEDICATION (Potassium Gluconate 595 mg (99 mg) Tablet) PO SCH (09:00)
[2021-07-07] MEDS: CHOLECALCIFEROL 1,000 UNITS 25 MCG TAB PO SCH (09:01)
[2021-07-07] MEDS: dexAMETHasone 6 MG in SYRINGE 0 ML IV SCH (09:01)
[2021-07-07] MEDS: ASPIRIN 81 MG ECTAB PO SCH (09:02)
[2021-07-07] MEDS: OXcarbazepine 150 MG TABLET PO SCH (09:02)
[2021-07-07] MEDS: ESCITALOPRAM OXALATE 10 MG TAB PO SCH (09:02)
[2021-07-07] MEDS: ATORVASTATIN 40 MG TAB PO SCH (09:02)
[2021-07-07] MEDS: FUROSEMIDE 20 MG TAB PO SCH (09:02)
[2021-07-07] MEDS: HYDROXYCHLOROQUINE SULFATE 200 MG TAB PO SCH ×2 (09:02→20:54)
[2021-07-07] MEDS: ZINC SULFATE 220 MG CAPSULE PO SCH (09:02)
[2021-07-07] MEDS: LORATADINE 10 MG TAB PO SCH (09:02)
[2021-07-07] MEDS: UMECLIDINIUM BROMIDE 62.5MCG/BLISTER 7 PUFFS/INHALER INH SCH (09:03)
[2021-07-07] MEDS: INSULIN ASPART 100 UNITS/ML 3 ML PEN SC SCH ×4 (09:03→20:55)
--- NOTE | 2021-07-07 17:34 | Electrocardiogram Report ---
Test Reason : Blood Pressure : / mmHG Vent. Rate : 100 BPM Atrial Rate : 100 BPM P-R Int : 140 ms QRS Dur : 080 ms QT Int : 352 ms P-R-T Axes : 046 035 080 degrees QTc Int : 454 ms Poor data quality, interpretation may be adversely affected Normal sinus rhythm Nonspecific ST abnormality Abnormal ECG When compared with ECG of 13-DEC-2019 10:29, Non-specific change in ST segment in Lateral leads Confirmed by Steven Chester ([id number]) on 07/07/2021 5:34:23 PM Referred By: REFERRED SELF Confirmed By:Refugio Chester
[2021-07-07] MEDS ORDERED: REMDESIVIR 100 MG in SODIUM CHLORIDE 0.9% 230 ML IV SCH (20:00)
[2021-07-07] MEDS ORDERED: PANTOprazole 40 MG TAB PO SCH (21:00)
[2021-07-07] MEDS ORDERED: rOPINIRole HCL 0.25 MG TABLET PO SCH (21:00)
[2021-07-07] MEDS ORDERED: MONTELUKAST SODIUM 10 MG TABLET PO SCH (21:00)
[2021-07-07] MEDS ORDERED: CLOPIDOGREL BISULFATE 75 MG TAB PO SCH (21:00)
[2021-07-08] MEDS: ENOXAPARIN INJ 40 MG/0.4 ML SYR SQ SCH ×2 (05:15→18:21)
[2021-07-08] MEDS: ZINC SULFATE 220 MG CAPSULE PO SCH (08:38)
[2021-07-08] MEDS: ATORVASTATIN 40 MG TAB PO SCH (08:38)
[2021-07-08] MEDS: OXcarbazepine 150 MG TABLET PO SCH (08:38)
[2021-07-08] MEDS: CHOLECALCIFEROL 1,000 UNITS 25 MCG TAB PO SCH (08:38)
[2021-07-08] MEDS: METOPROLOL TARTRATE 100 MG TAB PO SCH (08:39)
[2021-07-08] MEDS: ASPIRIN 81 MG ECTAB PO SCH (08:39)
[2021-07-08] MEDS: FUROSEMIDE 20 MG TAB PO SCH (08:39)
[2021-07-08] MEDS: LORATADINE 10 MG TAB PO SCH (08:39)
[2021-07-08] MEDS: HYDROXYCHLOROQUINE SULFATE 200 MG TAB PO SCH (08:39)
[2021-07-08] MEDS: dexAMETHasone 6 MG in SYRINGE 0 ML IV SCH (08:39)
[2021-07-08] MEDS: ESCITALOPRAM OXALATE 10 MG TAB PO SCH (08:39)
[2021-07-08] MEDS: UMECLIDINIUM BROMIDE 62.5MCG/BLISTER 7 PUFFS/INHALER INH SCH (08:40)
[2021-07-08] MEDS: INSULIN ASPART 100 UNITS/ML 3 ML PEN SC SCH ×3 (08:50→17:22)
[2021-07-08 11:54] VITALS: BP 99/59; PULSE 66; TEMP 97.5; O2SAT 94
--- NOTE | 2021-07-08 19:01 | Discharge Summary ---
Date of Service July 08, 2021 Principal Diagnosis covid 19 infection hypoxia no evidence of pneumonia on CXR Discharge Exam The patient appeared well Vital signs as documented. Lungs are clear to auscultation and appear unlabored Cardiac exam, Rhythm is regular.. No murmurs, rubs or gallops. Abdominal exam reveals normal bowel sounds, soft non tender, no masses Extremities are nonedematous and both pedal pulses are normal. Neurologic exam is alert and oriented, no focal loss of strength or sensation Skin is without bruises or rashes Psychologically is without concerns for anxiety or depression. Discharge Data Allergies Allergy/AdvReac Type Severity Reaction Status Date / Time auranofin Allergy Severe SHORTNESS Verified 06/29/21 09:50 OF BREATH Gold Salts Allergy Unknown HIVES TO Verified 06/29/21 09:50 GOLD SHOTS Consultations 07/06/21 20:37 ED Decision to Admit Stat Hospital Course (1) COVID-19: Mr. Arevalo is a 76 yo gentleman with a PMHx of COPD, type II diabetes and on immunosuppressive therapy for rheumatoid arthritis who presented for evaluation of new onset cough and congestion, found to have COVID 19. initially sounded much worse now stable - O2 sat < 94 on room air, RR was > 30; -Elevated d dimer 01/01/1970, CRP 4.86, procal negative - continue dexamethasone 6mg as an outpt - started Remdesirvir, since not hypoxic and no infiltrates, will not complete course - hold off an azithro as lungs appear clear (no superimposed PNA on CXR); will have home codiene cough syrup - zinc sulfate 220mg - vitamin D 5,000 IU (2) COPD (chronic obstructive pulmonary disease): - continue home inhalers + montelukast (3) Transaminitis: - initially AST 90, ALT 79- improved - suspect secondary to acute COVID 19 infection - (4) Obstructive sleep apnea: - continue home CPAP (5) Macrocytosis: - MCV 102 - folate, B12 level pending - no eoth use (6) Rheumatoid arthritis: - continue Plaquenil for rheumatologic conditions - although consider stopping if azithromycin and/or tocilizumab is eventually added (7) Type 2 diabetes mellitus: - last known HbA1c 7.0 in 07/2020; recheck level in am - hold home oral anti-glycemics - blood glucose checks achs - Slide scale insulin while inpatient - continue home dose statin - carb consistent diet (8) CAD (coronary artery disease): - continue home dose statin, asa, metoprolol (9) Dementia: - history of - high risk for delirium while hospitalized - frequent reorientation (10) Depression: - continue home escitalopram Code: DNR/DNI, I discussed with patient Total Time Total Time Spent Total Time Spent (In Minutes): It required greater than 30 minutes to prepare this patient for discharge Discharge Plan Discharge Items Patient Disposition: Home - Self-Care Reason For Visit: COVID 19 Discharge Diagnosis: Covid 19 infection Activity: Per Instructions section Activity Comment: slowly increase activity level Non-emergency contact: Primary Care Provider Call non-emergency contact if: you have any medication questions and your symptoms worsen Follow-up/Referrals: Oscar Sullivan DO [Primary Care Provider] - 07/17/21 9:20 am Diet: Regular Addtl Attending Provider Instructions: Home Isolation COVID-19 Instructions, please continue home isolation until 07/10/21 as we believe your symptoms started 06/29 continue and complete your dexamethasone, after that restart your prednisione Call your Primary care for a phone follow up next week The following information about Home Isolation is from the CDC Website: https://www.cdc.gov/coronavirus/2019-ncov/hcp/bxhakbhc-vcjxmvp-qjvtil.html Stay home except to get medical care People who are mildly ill with COVID-19 are able to isolate at home during their illness. You should restrict activities outside your home, except for getting medical care. Do not go to work, school, or public areas. Avoid using public transportation, ride-sharing, or taxis. Separate yourself from other people and animals in your home People: As much as possible, you should stay in a specific room and away from other people in your home. Also, you should use a separate bathroom, if available. Animals: You should restrict contact with pets and other animals while you are sick with COVID-19, just like you would around other people. Although there have not been reports of pets or other animals becoming sick with COVID-19, it is still recommended that people sick with COVID-19 limit contact with animals until more information is known about the virus. When possible, have another member of your household care for your animals while you are sick. If you are sick with COVID-19, avoid contact with your pet, including petting, snuggling, being kissed or licked, and sharing food. If you must care for your pet or be around animals while you are sick, wash your hands before and after you interact with pets and wear a face mask. Call ahead before visiting your doctor If you have a medical appointment, call the healthcare provider and tell them that you have or may have COVID-19. This will help the healthcare providers office take steps to keep other people from getting infected or exposed. Wear a face mask You should wear a face mask when you are around other people (e.g., sharing a room or vehicle) or pets and before you enter a healthcare providers office. If you are not able to wear a face mask (for example, because it causes trouble breathing), then people who live with you should not stay in the same room with you, or they should wear a face mask if they enter your room. Cover your coughs and sneezes Cover your mouth and nose with a tissue when you cough or sneeze. Throw used tissues in a lined trash can. Immediately wash your hands with soap and water for at least 20 seconds or, if soap and water are not available, clean your hands with an alcohol-based hand missile facilities repairer that contains at least 60% alcohol. Clean your hands often Wash your hands often with soap and water for at least 20 seconds, especially after blowing your nose, coughing, or sneezing; going to the bathroom; and before eating or preparing food. If soap and water are not readily available, use an alcohol-based hand missile facilities repairer with at least 60% alcohol, covering all surfaces of your hands and rubbing them together until they feel dry. Soap and water are the best option if hands are visibly dirty. Avoid touching your eyes, nose, and mouth with unwashed hands. Avoid sharing personal household items You should not share dishes, drinking glasses, cups, eating utensils, towels, or bedding with other people or pets in your home. After using these items, they should be washed thoroughly with soap and water. Clean all high-touch surfaces everyday High touch surfaces include counters, tabletops, doorknobs, bathroom fixtures, toilets, phones, keyboards, tablets, and bedside tables. Also, clean any surfaces that may have blood, stool, or body fluids on them. Use a household cleaning spray or wipe, according to the label instructions. Labels contain instructions for safe and effective use of the cleaning product including precautions you should take when applying the product, such as wearing gloves and making sure you have good ventilation during use of the product. Monitor your symptoms Seek prompt medical attention if your illness is worsening (e.g., difficulty breathing).Beforeseeking care, call your healthcare provider and tell them that you have, or are being evaluated for, COVID-19. Put on a face mask before you enter the facility. These steps will help the healthcare providers office to keep other people in the office or waiting room from getting infected or exposed. Ask your healthcare provider to call the local or state health department. Persons who are placed under active monitoring or facilitated self- monitoring should follow instructions provided by their local health department or occupational health professionals, as appropriate. When working with your local health department check their available hours. If you have a medical emergency and need to call 911, notify the dispatch personnel that you have, or are being evaluated for COVID-19. If possible, put on a face mask before emergency medical services arrive. Discontinuing home isolation Patients with confirmed COVID-19 should remain under home isolation precautions until the risk of secondary transmission to others is thought to be low. The decision to discontinue home isolation precautions should be made on a [id number] basis, in consultation with healthcare providers and [facility] and [facility] health departments. Pending Studies at Discharge: No Stand-Alone Forms: My [facility], Smoking Cessation Medications and DC Order Prescriptions: New dexamethasone [Decadron] 6 mg tablet 6 mg PO DAILY Qty: 7 RF: 0 codeine-guaifenesin 10-100 mg/5 mL liquid 5 ml PO Q6H PRN (Reason: cough) Qty: 120 RF: 0 Continued metformin 1,000 mg tablet 1,000 mg PO BID Qty: 180 RF: 1 glimepiride 1 mg tablet 1 mg PO BID Qty: 180 RF: 1 atorvastatin 40 mg tablet 40 mg PO QAM Qty: 90 RF: 1 oxcarbazepine 150 mg tablet 150 mg PO QAM Qty: 90 RF: 1 clopidogrel 75 mg tablet 75 mg PO QPM Qty: 90 RF: 1 pantoprazole 40 mg tablet,delayed release (DR/EC) 40 mg PO QPM Qty: 90 RF: 1 furosemide 20 mg tablet 20 mg PO QAM Qty: 90 RF: 1 amoxicillin 500 mg tablet 2,000 mg PO ONCE Qty: 4 RF: 3 omeprazole 20 mg capsule,delayed release(DR/EC) 20 mg PO QAM Qty: 90 RF: 0 aspirin 81 mg tablet,delayed release (DR/EC) 81 mg PO QAM Qty: 90 RF: 0 loratadine 10 mg tablet 10 mg PO QAM Qty: 90 RF: 0 magnesium oxide 400 mg (241.3 mg magnesium) tablet 400 mg PO QAM RF: 0 hydroxychloroquine 200 mg tablet 200 mg PO BID Qty: 60 RF: 0 multivitamin [Multiple Vitamins] tablet 1 tab PO QAM RF: 0 metoprolol tartrate 100 mg tablet 100 mg PO Q12H Qty: 180 RF: 3 nitroglycerin 0.4 mg tablet, sublingual 0.4 mg SL Q5M PRN (Reason: chest pain) Qty: 25 RF: 3 escitalopram oxalate 10 mg tablet 10 mg PO QAM Qty: 90 RF: 3 ropinirole 0.5 mg tablet 0.75 mg PO HS Qty: 135 RF: 1 (DME) CPAP Supplies Misc See Rx Instructions .MEDSUPPLY Qty: 1 RF: 0 albuterol sulfate 90 mcg/actuation HFA aerosol inhaler 2 inh inhalation Q6H PRN (Reason: shortness of breath or wheezing) Qty: 18 RF: 5 albuterol sulfate 2.5 mg /3 mL (0.083 %) solution for nebulization 2.5 mg inhalation Q4H PRN (Reason: COPD) Qty: 180 RF: 5 montelukast 10 mg tablet 10 mg PO QPM Qty: 90 RF: 3 cyanocobalamin (vitamin B-12) 1,000 mcg Tablet 1,000 mcg PO BID RF: 0 cholecalciferol (vitamin D3) [Vitamin D3] 25 mcg (1,000 unit) Capsule 25 mcg PO BID RF: 0 potassium gluconate 595 mg (99 mg) Tablet 595 mg PO QAM RF: 0 ascorbic acid (vitamin C) 100 mg tablet 100 mg PO QAM RF: 0 Probiotic 3 billion cell capsule 3,000 mmu cells PO QAM RF: 0 prednisone 5 mg tablet 5 mg PO QAM RF: 0 Incruse Ellipta 62.5 mcg/actuation blister with device 1 inh inhalation QAM RF: 0 Discontinued prednisone 10 mg tablet See Rx Instructions PO DAILY Qty: 20 RF: 0 amoxicillin-pot clavulanate [Augmentin] 875-125 mg tablet 1 tab PO Q12H Qty: 20 RF: 0 Discharge Orders: Discharge Order (Routine); Ordered 07/08/21 Ordered By: Dick Ramirez/Other Patient Handouts: A1C, Managing Type 2 Diabetes Admission Data Admit Date/Time: 07/06/21 21:42 Attending Provider: Dick Mcgee Admit Provider: Marlene James Primary Care Provider: Oscar Sullivan Other Providers: Bailey Guzman Other Interventions: Discharge Summary Assessment (RN) Last Done: 07/08/21 09:51 Coding Level of Care Code D/C DAY MANAGEMENT >30 MINS Diagnoses COVID-19 U07.1 COPD (chronic obstructive pulmonary disease) J44.9 Transaminitis R74.01 Obstructive sleep apnea G47.33 Macrocytosis D75.89 Rheumatoid arthritis M06.9 Type 2 diabetes mellitus E11.9 CAD (coronary artery disease) I25.10 Dementia F03.90 Depression F32.9
== END 2021-07-08 19:00 | disposition home or self-care (01) | DRG 178 ==
LOC: ED 14:17 → 2N 21:42 → SUATTDRO 21:42 → 2N 07-07 00:48

== ENCOUNTER 2022-03-12 17:54 | Inpatient (IN) ==
[2022-03-12] MEDS ORDERED: SODIUM CHLORIDE 0.9% 1000ML 1,000 ML IV SCH (18:15)
--- NOTE | 2022-03-12 18:27 | Emergency Department Note ---
Impression & Plan Elevated lactic acid level, Fall, Vomiting and diarrhea, Closed head injury ED Provider Note CHIEF COMPLAINT: Fall, closed head injury, vomiting and diarrhea HISTORY OF PRESENT ILLNESS: This 76-year-old male patient presents to the emergency department with complaints of a fall and left periorbital hematoma. Per EMS and nursing staff the patient had a fall today after his second episode of vomiting/diarrhea. The symptoms began today and the patient fell off of the toilet, getting stuck between the toilet and the wall. Patient has a history of dementia and is unable to give an accurate history although his daughter has presented at the bedside. She states she arrived after the fact but per her mother the patient woke up at about 1 PM today. He missed his medications because of this. He was a Easter dinner with a number of people but did not seem to be ill. He has had diarrhea for the last several weeks which has not been evaluated. Daughter states it happens almost every time he eats. He does have a complicated past medical history including congestive heart failure, diabetes, obesity, Alzheimer's dementia, COPD. Patient is currently taking aspirin and Plavix. REVIEW OF SYSTEMS: A review of systems was performed with positives and pertinent negatives listed in the history of present illness. 10 systems were reviewed and are otherwise negative. ALLERGIES: see below MEDICATIONS: see below PMH: see below SOCIAL HISTORY: see below DDx:Dehydration, metabolic abnormality, hypo/hyperglycemia, electrolyte disturbance, anemia, hypoxia, cardiac sources, skull fracture, intracranial hemorrhage, stroke, viral illness, UTI, GI bleed amongst others PHYSICAL EXAM: Vital signs reviewed. General: Elderly, obese 76-year-old male in no significant distress. HEENT: No conjunctival injection, PERRLA, neck supple. 3 to 4 cm hematoma to the left superior orbital rim. EOMI. Cardiovascular: Regular rate and rhythm, no extra sounds. Pulmonary: Clear to auscultation bilaterally, normal work of breathing. Abdomen: Soft, nontender, nondistended, positive bowel sounds. Exam is somewhat limited by body habitus. Musculoskeletal: Atraumatic, no peripheral edema. Neurologic: Patient awake alert and able to answer questions regarding year but unable to answer his age. Skin: Warm, dry, no rash EMERGENCY DEPARTMENT COURSE/MDM: This patient was evaluated and appeared to be in no significant distress. IV access was obtained and laboratory work was drawn. Patient has a small left periorbital hematoma but does not seem to remember the event. CT imaging of the head was performed and is negative for acute intracranial hemorrhage. CT imaging of the abdomen pelvis was performed and reveals bilateral nephrolithiasis without obstructing stone. Patient's la boratory work reveals an elevated lactate. He was given a dose of IV Zosyn and hydrated with normal saline solution. He was given a 500 mL bolus x1 and then hydrated at 125 mls per hour. Pt does have a h/o AVR and severe BLE edema. He is on Lasix chronically. Lactate improved from 3.5->3.0. Pt VSS with normal HR and is hypertensive. Patient's case was discussed with the hospitalist service who was evaluated for admission and further management. MONITORING: An order for cardiac monitoring was placed and the patient is noted to be in a normal sinus rhythm at 87 beats per minute. RADIOLOGY: See below EKG: Normal sinus rhythm at 87 bpm with low overall voltage. Poor quality baseline for interpretation however cannot rule out previous anterior infarct. QTC is 466 without PVC or PAC. Normal ST segments. Normal ME interval. DISPOSITION: Admit I have personally spent 35 minutes of critical care time in the direct management of this patient. This was a life/limb threatening event. This 35 minutes is in excess of all separately billable procedures. Past Med/Surg History Medical History Alzheimer's disease Anxiety Aortic stenosis F/U DR FERRARA-AVR 12/2019 [facility] Bronchitis HX-2-3 YRS AGO Chronic low back pain Chronic obstructive pulmonary disease CKD (chronic kidney disease) F/U DR BOONE Depression Essential hypertension Hiatal hernia Hyperlipidemia Obesity Obstructive sleep apnea CPAP Osteoarthritis of knee Peptic ulcer HX Presence of drug-eluting stent in right coronary artery Restless legs Restrictive lung disease Rheumatoid arthritis Rheumatoid arthritis F/U DR MO Short-term memory loss SOB (shortness of breath) on exertion Tachycardia HX Tubular adenoma of colon Type 2 diabetes mellitus Venous insufficiency Surgical History H/O colonoscopy 2016 History of foot surgery CYSTS REMOVED-LEFT History of total knee replacement RIGHT Hx of appendectomy S/P AVR [facility] 12/2019 S/P cardiac catheterization 11/2019 [facility] 1 STENT S/P TAVR (transcatheter aortic valve replacement) Status post cardiac catheterization Family History Mother Diabetes Coronary heart disease Hypertension Brother Hypertension Sister Hypertension Father Hypertension Denies family history of Ovarian cancer Prostate cancer Myocardial infarction Breast cancer Colorectal cancer Social History Smoking Status: Former smoker Number of Years Since Quit: 43; Second Hand Exposure: No; Hx Alcohol Use: No Hx Substance Use: No Preferred Language: Austrian Communication Ability: Effective Visual Impairment: No Limitations Hearing Ability: Hard of Hearing Working Manager Required: No Beliefs That Will Affect Care: None marital status: Current Living Situation: Spouse Current Living Situation Comment: Lives w/ spouse @ home current occupational status: retired Feels Safe at Home: Yes Dental Care, Regularly: Yes Physical Activity Frequency: Does not Exercise Seatbelt Use: always Assistive Devices: None Allergies Allergies Allergy/AdvReac Type Severity Reaction Status Date / Time auranofin Allergy Severe SHORTNESS Verified 03/12/22 19:44 OF BREATH Gold Salts Allergy Unknown HIVES TO Verified 03/12/22 19:44 GOLD SHOTS Home Meds Home Medications Medication Instructions Recorded Confirmed omeprazole 20 mg capsule,delayed 20 mg PO QAM #90 cap 06/03/19 03/12/22 release multivitamin (Multiple Vitamins) 1 tab PO QAM 06/19/19 03/12/22 aspirin 81 mg tablet,delayed 81 mg PO QAM #90 tab 07/09/19 03/12/22 release hydroxychloroquine 200 mg tablet 400 mg PO HS #60 tab 07/09/19 03/12/22 loratadine 10 mg tablet 10 mg PO QAM #90 tab 07/09/19 03/12/22 magnesium oxide 400 mg (241.3 mg 400 mg PO QAM tab 07/09/19 03/12/22 magnesium) tablet cholecalciferol (vitamin D3) 25 25 mcg PO BID 12/12/19 03/12/22 mcg (1,000 unit) capsule (Vitamin D3) cyanocobalamin (vitamin B-12) 1,000 mcg PO BID 12/12/19 03/12/22 1,000 mcg tablet potassium gluconate 595 mg (99 mg) 595 mg PO QAM 12/12/19 03/12/22 tablet prednisone 5 mg tablet 5 mg PO QAM 03/31/21 03/12/22 ascorbic acid (vitamin C) 100 mg 100 mg PO QAM tab 05/10/21 03/12/22 tablet lactobacillus combination no.4 3 3,000 mmu cells PO QAM cap 05/10/21 03/12/22 billion cell capsule (Probiotic) atorvastatin 40 mg tablet 40 mg PO QAM 03/12/22 03/12/22 folic acid 1 mg tablet 1 mg PO DAILY 03/12/22 03/12/22 methotrexate sodium 2.5 mg tablet 15 mg PO WK 03/12/22 03/12/22 montelukast 10 mg tablet 10 mg PO QPM 03/12/22 03/12/22 Previous Rx's Medication Instructions Recorded albuterol sulfate 2.5 mg INHALATION Q4H PRN #180 ml 09/01/20 CPAP Supplies #1 ea 03/16/21 glimepiride 1 mg tablet 1 mg PO BID #180 tab 03/29/21 metoprolol tartrate 100 mg tablet 100 mg PO Q12H #180 tab 05/10/21 nitroglycerin 0.4 mg sublingual 0.4 mg SL Q5M PRN #25 tab 05/10/21 tablet escitalopram oxalate 20 mg tablet 20 mg PO DAILY 90 Days #90 tab 10/18/21 albuterol sulfate 90 mcg/actuation 2 inh INHALATION Q6H PRN #18 g 11/01/21 aerosol inhaler umeclidinium 62.5 mcg/actuation 1 inh INHALATION QAM #30 ea 11/01/21 blister powder for inhalation (Incruse Ellipta) oxcarbazepine 300 mg tablet 300 mg PO DAILY #90 tab 11/30/21 clopidogrel 75 mg tablet 75 mg PO QPM #90 tab 12/08/21 pantoprazole 40 mg tablet,delayed 40 mg PO QPM #90 tab 12/08/21 release furosemide 20 mg tablet 20 mg PO QAM #90 tab 12/25/21 ropinirole 0.5 mg tablet 0.75 mg PO HS #135 tab 01/31/22 memantine 5 mg tablet 5 mg PO BID #180 tab 02/26/22 metformin 1,000 mg tablet,extended 1,000 mg PO BID #60 tab 03/16/22 release 24hr Results & Data (ED) Vital Signs Vital Signs - 24 hr 03/12/22 18:00 Temperature 37.3 C Temperature Source Oral Pulse Rate 87 Respiratory Rate 22 Respiratory Effort / Characteristics Non-Labored Spontaneous Respiratory Depth Normal Respiratory Pattern Regular Blood Pressure 178/96 H Blood Pressure Mean 123 Blood Pressure Position Lying Pulse Oximetry 93 Oxygen Delivery Method Room Air Sepsis Recent Fever Within 48 Hours No Sepsis New/Unexplained Change in Mental Status N/A Sepsis Action Taken by Nursing No Action Required Home Medications Current Medication List: was personally reviewed by me Laboratory Data Attestation: I reviewed the patient's lab results. Result diagrams: 03/13/22 07:15 03/15/22 08:08 Lab Results 03/12/22 03/12/22 03/12/22 Range/Units 18:19 18:19 18:19 WBC 7.93 (4.8-10.8) K/uL RBC 3.87 L (4.7-6.1) M/uL Hgb 13.3 L (14.0-18.0) g/dL POC Hgb (14.0-18.0) g/dl Hct 40.1 L (42-52) % POC Hct (42-52) % MCV 103.6 H (80-100) fL MCH 34.4 H (25-34) pg MCHC 33.2 (32-36) g/dL RDW Std Deviation 59.4 H (36.4-46.3) fL RDW Coeff of Farideh 15.8 H (11.5-14.5) % Plt Count 171 (130-400) K/uL MPV 10.5 H (7.4-10.4) fL Immature Gran % (Auto) 0.4 % Neut % (Auto) 84.9 % Lymph % (Auto) 4.4 % Sanborn % (Auto) 6.9 % Eos % (Auto) 3.3 % Baso % (Auto) 0.1 % Neut # (Auto) 6.73 H (1.4-6.5) K/uL Lymph # (Auto) 0.35 L (1.2-3.4) K/uL Sanborn # (Auto) 0.55 (0.11-0.59) K/uL Eos # (Auto) 0.26 (0-0.5) K/uL Baso # (Auto) 0.01 (0-0.2) K/uL Immature Gran # (Auto) 0.03 H (0.00-0.02) K/uL POC Sodium (135-144) mmol/L Sodium 138 (136-145) mmol/L POC Potassium (3.3-5.0) mmol/L Potassium 4.5 (3.5-5.1) mmol/L POC Chloride (101-112) mmol/L Chloride 101 (98-107) mmol/L Carbon Dioxide 28 (21-32) mmol/L POC Total CO2 (24-31) mmol/L Anion Gap 9 (3-11) POC Anion Gap (16-25) mmol/L POC BUN (7-18) mg/dl BUN 22 (6-23) mg/dl Creatinine 1.20 (0.6-1.4) mg/dl POC Creatinine (0.6-1.3) mg/dl Est Cr Clr Drug Dosing 62.8 ml/min Est GFR ( Amer) 67.7 ml/min Est GFR (Non-Af Amer) 58.4 ml/min BUN/Creatinine Ratio 18.3 (10-20) Glucose 186 H (70-99(Fasting)) mg/dl POC Glucose (other) (70-99) mg/dl Lactate 3.5 H* (0.4-2.0) mmol/L Calcium 8.8 (8.5-10.1) mg/dl POC Ioniz Calcium Luz (1.12-1.32) mmol/l Magnesium 1.2 L (1.7-2.4) mg/dl Total Bilirubin 0.6 (0.2-1.0) mg/dl AST 31 (13-39) U/L ALT 33 (7-52) U/L Alkaline Phosphatase 63 (34-104) U/L Troponin I High Sens 14.8 (0-20) pg/ml Total Protein 7.2 (6.0-8.3) gm/dl Albumin 4.2 (3.4-5.0) gm/dl Globulin 3.0 (2.5-4.0) gm/dl Albumin/Globulin Ratio 1.4 (0.9-2) TSH (0.300-4.500) uIu/ml Urine Color Urine Appearance (Clear) Urine pH (4.5-7.5) Ur Specific Fortine (1.000-1.030) Urine Protein (Negative) Urine Glucose (UA) (Negative) Urine Ketones (Negative) Urine Blood (Negative) Urine Nitrite (Negative) Urine Bilirubin (Negative) Urine Urobilinogen (Negative) Ur Leukocyte Esterase (Negative) Urine WBC (Auto) (0-5) /hpf Urine RBC (Auto) (0-4) /hpf U Hyaline Cast (Auto) (0-5) /lpf U Epithel Cells (Auto) (0-5) /lpf Urine Bacteria (Auto) (Negative) SARS-CoV-2 (PCR) (Negative) Influenza Type A (PCR) (Neg) Influenza Type B (PCR) (Neg) RSV (RT-PCR) (Neg) 03/12/22 03/12/22 03/12/22 Range/Units 18:19 18:22 19:18 WBC (4.8-10.8) K/uL RBC (4.7-6.1) M/uL Hgb (14.0-18.0) g/dL POC Hgb 14.6 (14.0-18.0) g/dl Hct (42-52) % POC Hct 43 (42-52) % MCV (80-100) fL MCH (25-34) pg MCHC (32-36) g/dL RDW Std Deviation (36.4-46.3) fL RDW Coeff of Farideh (11.5-14.5) % Plt Count (130-400) K/uL MPV (7.4-10.4) fL Immature Gran % (Auto) % Neut % (Auto) % Lymph % (Auto) % Sanborn % (Auto) % Eos % (Auto) % Baso % (Auto) % Neut # (Auto) (1.4-6.5) K/uL Lymph # (Auto) (1.2-3.4) K/uL Sanborn # (Auto) (0.11-0.59) K/uL Eos # (Auto) (0-0.5) K/uL Baso # (Auto) (0-0.2) K/uL Immature Gran # (Auto) (0.00-0.02) K/uL POC Sodium 140 (135-144) mmol/L Sodium (136-145) mmol/L POC Potassium 4.5 (3.3-5.0) mmol/L Potassium (3.5-5.1) mmol/L POC Chloride 99 L (101-112) mmol/L Chloride (98-107) mmol/L Carbon Dioxide (21-32) mmol/L POC Total CO2 24 (24-31) mmol/L Anion Gap (3-11) POC Anion Gap 22.0 (16-25) mmol/L POC BUN 21 H (7-18) mg/dl BUN (6-23) mg/dl Creatinine (0.6-1.4) mg/dl POC Creatinine 1.2 (0.6-1.3) mg/dl Est Cr Clr Drug Dosing ml/min Est GFR ( Amer) ml/min Est GFR (Non-Af Amer) ml/min BUN/Creatinine Ratio (10-20) Glucose (70-99(Fasting)) mg/dl POC Glucose (other) 193 H (70-99) mg/dl Lactate (0.4-2.0) mmol/L Calcium (8.5-10.1) mg/dl POC Ioniz Calcium Luz 1.06 L (1.12-1.32) mmol/l Magnesium (1.7-2.4) mg/dl Total Bilirubin (0.2-1.0) mg/dl AST (13-39) U/L ALT (7-52) U/L Alkaline Phosphatase (34-104) U/L Troponin I High Sens (0-20) pg/ml Total Protein (6.0-8.3) gm/dl Albumin (3.4-5.0) gm/dl Globulin (2.5-4.0) gm/dl Albumin/Globulin Ratio (0.9-2) TSH 2.477 (0.300-4.500) uIu/ml Urine Color Yellow Urine Appearance Clear (Clear) Urine pH 6.0 (4.5-7.5) Ur Specific Fortine 1.025 (1.000-1.030) Urine Protein Trace H (Negative) Urine Glucose (UA) 2+ H (Negative) Urine Ketones Negative (Negative) Urine Blood Negative (Negative) Urine Nitrite Negative (Negative) Urine Bilirubin Negative (Negative) Urine Urobilinogen Negative (Negative) Ur Leukocyte Esterase Negative (Negative) Urine WBC (Auto) 0 (0-5) /hpf Urine RBC (Auto) 0-4 (0-4) /hpf U Hyaline Cast (Auto) 0 (0-5) /lpf U Epithel Cells (Auto) 5-10 H (0-5) /lpf Urine Bacteria (Auto) Negative (Negative) SARS-CoV-2 (PCR) (Negative) Influenza Type A (PCR) (Neg) Influenza Type B (PCR) (Neg) RSV (RT-PCR) (Neg) 03/12/22 03/12/22 Range/Units 19:31 20:03 WBC (4.8-10.8) K/uL RBC (4.7-6.1) M/uL Hgb (14.0-18.0) g/dL POC Hgb (14.0-18.0) g/dl Hct (42-52) % POC Hct (42-52) % MCV (80-100) fL MCH (25-34) pg MCHC (32-36) g/dL RDW Std Deviation (36.4-46.3) fL RDW Coeff of Farideh (11.5-14.5) % Plt Count (130-400) K/uL MPV (7.4-10.4) fL Immature Gran % (Auto) % Neut % (Auto) % Lymph % (Auto) % Sanborn % (Auto) % Eos % (Auto) % Baso % (Auto) % Neut # (Auto) (1.4-6.5) K/uL Lymph # (Auto) (1.2-3.4) K/uL Sanborn # (Auto) (0.11-0.59) K/uL Eos # (Auto) (0-0.5) K/uL Baso # (Auto) (0-0.2) K/uL Immature Gran # (Auto) (0.00-0.02) K/uL POC Sodium (135-144) mmol/L Sodium (136-145) mmol/L POC Potassium (3.3-5.0) mmol/L Potassium (3.5-5.1) mmol/L POC Chloride (101-112) mmol/L Chloride (98-107) mmol/L Carbon Dioxide (21-32) mmol/L POC Total CO2 (24-31) mmol/L Anion Gap (3-11) POC Anion Gap (16-25) mmol/L POC BUN (7-18) mg/dl BUN (6-23) mg/dl Creatinine (0.6-1.4) mg/dl POC Creatinine (0.6-1.3) mg/dl Est Cr Clr Drug Dosing ml/min Est GFR ( Amer) ml/min Est GFR (Non-Af Amer) ml/min BUN/Creatinine Ratio (10-20) Glucose (70-99(Fasting)) mg/dl POC Glucose (other) (70-99) mg/dl Lactate 3.0 H* (0.4-2.0) mmol/L Calcium (8.5-10.1) mg/dl POC Ioniz Calcium Luz (1.12-1.32) mmol/l Magnesium (1.7-2.4) mg/dl Total Bilirubin (0.2-1.0) mg/dl AST (13-39) U/L ALT (7-52) U/L Alkaline Phosphatase (34-104) U/L Troponin I High Sens (0-20) pg/ml Total Protein (6.0-8.3) gm/dl Albumin (3.4-5.0) gm/dl Globulin (2.5-4.0) gm/dl Albumin/Globulin Ratio (0.9-2) TSH (0.300-4.500) uIu/ml Urine Color Urine Appearance (Clear) Urine pH (4.5-7.5) Ur Specific Fortine (1.000-1.030) Urine Protein (Negative) Urine Glucose (UA) (Negative) Urine Ketones (Negative) Urine Blood (Negative) Urine Nitrite (Negative) Urine Bilirubin (Negative) Urine Urobilinogen (Negative) Ur Leukocyte Esterase (Negative) Urine WBC (Auto) (0-5) /hpf Urine RBC (Auto) (0-4) /hpf U Hyaline Cast (Auto) (0-5) /lpf U Epithel Cells (Auto) (0-5) /lpf Urine Bacteria (Auto) (Negative) SARS-CoV-2 (PCR) NEGATIVE (Negative) Influenza Type A (PCR) Negative (Neg) Influenza Type B (PCR) Negative (Neg) RSV (RT-PCR) Negative (Neg) Administered Medications Discontinued Medications Aspirin (Aspirin 81 Mg Ectab) 81 mg PO [facility] Stop: 04/12/22 08:59 Last Admin: 03/16/22 09:19 Dose: 81 mg Documented by: [id number] Admin: 03/15/22 08:59 Dose: 81 mg Documented by: [id number] Admin: 03/14/22 09:51 Dose: 81 mg Documented by: [id number] Admin: 03/13/22 09:34 Dose: 81 mg Documented by: [id number] Atorvastatin Calcium (Atorvastatin 40 Mg Tab) 40 mg PO QAM JOAO Stop: 04/12/22 08:59 Last Admin: 03/16/22 09:19 Dose: 40 mg Documented by: [id number] Admin: 03/15/22 08:59 Dose: 40 mg Documented by: [id number] Admin: 03/14/22 09:51 Dose: 40 mg Documented by: [id number] Admin: 03/13/22 09:34 Dose: 40 mg Documented by: [id number] Clopidogrel Bisulfate (Clopidogrel Bisulfate 75 Mg Tab) 75 mg PO QPM JOAO Stop: 04/12/22 20:59 Last Admin: 03/15/22 20:34 Dose: 75 mg Documented by: [id number] Admin: 03/14/22 20:33 Dose: 75 mg Documented by: [id number] Admin: 03/13/22 20:34 Dose: 75 mg Documented by: [id number] Escitalopram Oxalate (Escitalopram Oxalate 20 Mg Tab) 20 mg PO DAILY JOAO Stop: 04/12/22 08:59 Last Admin: 03/16/22 09:19 Dose: 20 mg Documented by: [id number] Admin: 03/15/22 08:59 Dose: 20 mg Documented by: [id number] Admin: 03/14/22 09:51 Dose: 20 mg Documented by: [id number] Admin: 03/13/22 09:34 Dose: 20 mg Documented by: [id number] Furosemide (Furosemide 20 Mg Tab) 20 mg PO QAM JOAO Stop: 04/12/22 08:59 Last Admin: 03/16/22 09:19 Dose: 20 mg Documented by: [id number] Admin: 03/15/22 08:59 Dose: 20 mg Documented by: [id number] Admin: 03/14/22 09:50 Dose: 20 mg Documented by: [id number] Admin: 03/13/22 09:34 Dose: 20 mg Documented by: [id number] Hydroxychloroquine Sulfate (Hydroxychloroquine Sulfate 200 Mg Tab) 400 mg PO HS JOAO Stop: 04/12/22 20:59 Last Admin: 03/15/22 20:34 Dose: 400 mg Documented by: [id number] Admin: 03/14/22 20:33 Dose: 400 mg Documented by: [id number] Admin: 03/13/22 20:34 Dose: 400 mg Documented by: [id number] Sodium Chloride (Nss 1000ml) 1,000 mls @ 125 mls/hr IV .Q8H JOAO Stop: 03/13/22 02:14 Last Infusion: 03/13/22 01:12 Dose: 0 mls/hr Documented by: [id number] Admin: 03/12/22 18:30 Dose: 125 mls/hr Documented by: [id number] Magnesium Sulfate/Dextrose (Magnesium Sulfate / D5w) 1 gm in 100 mls @ 200 mls/hr IV Q30M JOAO Stop: 03/12/22 20:02 Last Infusion: 03/12/22 20:36 Dose: 0 mls/hr Documented by: [id number] Admin: 03/12/22 20:01 Dose: 200 mls/hr Documented by: [id number] Infusion: 03/12/22 19:58 Dose: 200 mls/hr Documented by: [id number] Admin: 03/12/22 19:28 Dose: 200 mls/hr Documented by: [id number] Sodium Chloride (Nss) 500 mls @ 999 mls/hr IV .Q31M ONE Stop: 03/12/22 20:41 Last Infusion: 03/12/22 20:50 Dose: 0 mls/hr Documented by: [id number] Admin: 03/12/22 20:17 Dose: 999 mls/hr Documented by: [id number] Piperacillin Sod/Tazobactam Sod (Zosyn) 4.5 gm in 120 mls @ 240 mls/hr IV NOW ONE Stop: 03/12/22 21:04 Last Infusion: 03/12/22 21:26 Dose: 0 mls/hr Documented by: [id number] Admin: 03/12/22 20:49 Dose: 240 mls/hr Documented by: [id number] Magnesium Sulfate/Dextrose (Magnesium Sulfate / D5w) 1 gm in 100 mls @ 50 mls/hr IV Q2H STA Stop: 03/13/22 00:22 Last Infusion: 03/13/22 01:12 Dose: 0 mls/hr Documented by: [id number] Admin: 03/12/22 22:33 Dose: 50 mls/hr Documented by: [id number] Calcium Gluconate 1,000 mg/ (Dextrose) 60 mls @ 240 mls/hr IV NOW ONE Stop: 03/13/22 00:44 Last Infusion: 03/13/22 01:29 Dose: 0 mls/hr Documented by: [id number] Admin: 03/13/22 01:04 Dose: 240 mls/hr Documented by: [id number] Lactated Ringer's (Lr) 1,000 mls @ 80 mls/hr IV .[id number] [facility] Stop: 03/13/22 12:48 Last Infusion: 03/13/22 09:02 Dose: 0 mls/hr Documented by: [id number] Infusion: 03/13/22 09:01 Dose: 0 mls/hr Documented by: [id number] Admin: 03/13/22 01:04 Dose: 80 mls/hr Documented by: [id number] Magnesium Sulfate/Dextrose (Magnesium Sulfate / D5w) 1 gm in 100 mls @ 50 mls/hr IV Q2H [facility] Stop: 03/13/22 06:59 Last Infusion: 03/13/22 07:38 Dose: 0 mls/hr Documented by: [id number] Admin: 03/13/22 04:51 Dose: 50 mls/hr Documented by: [id number] Infusion: 03/13/22 04:48 Dose: 50 mls/hr Documented by: [id number] Admin: 03/13/22 02:48 Dose: 50 mls/hr Documented by: [id number] Infusion: 03/13/22 02:48 Dose: 50 mls/hr Documented by: [id number] Admin: 03/13/22 01:04 Dose: 50 mls/hr Documented by: [id number] Insulin Aspart (Insulin Aspart Per Unit) 0 units SC ACHS JOAO Stop: 04/12/22 07:29 Last Admin: 03/13/22 20:44 Dose: 2 units Documented by: [id number] Cosigned by: [id number] Admin: 03/13/22 18:22 Dose: 4 units Documented by: [id number] Cosigned by: [id number] Admin: 03/13/22 13:24 Dose: 3 units Documented by: [id number] Cosigned by: [id number] Admin: 03/13/22 09:34 Dose: 2 units Documented by: [id number] Cosigned by: [id number] Insulin Aspart (Insulin Aspart Per Unit) 0 units SC Q6 [facility] Stop: 04/13/22 05:59 Last Admin: 03/14/22 07:15 Dose: 1 units Documented by: [id number] Cosigned by: [id number] Insulin Aspart (Insulin Aspart Per Unit) 0 units SC ACHS [facility] Stop: 04/13/22 05:59 Last Admin: 03/16/22 13:12 Dose: 3 units Documented by: [id number] Cosigned by: [id number] Admin: 03/16/22 09:18 Dose: 3 units Documented by: [id number] Cosigned by: [id number] Admin: 03/15/22 20:40 Dose: 1 units Documented by: [id number] Cosigned by: [id number] Admin: 03/15/22 18:09 Dose: 4 units Documented by: [id number] Cosigned by: [id number] Admin: 03/15/22 13:31 Dose: 3 units Documented by: [id number] Cosigned by: [id number] Admin: 03/15/22 09:03 Dose: 2 units Documented by: [id number] Cosigned by: [id number] Admin: 03/14/22 20:45 Dose: 2 units Documented by: [id number] Cosigned by: [id number] Admin: 03/14/22 17:52 Dose: 3 units Documented by: [id number] Cosigned by: [id number] Admin: 03/14/22 12:37 Dose: 3 units Documented by: [id number] Cosigned by: [id number] Insulin Glargine (Insulin Glargine Solostar 100 Units/Ml 3 Ml Pen) 5 units SC BID [facility] Stop: 04/12/22 08:59 Last Admin: 03/16/22 09:20 Dose: 5 units Documented by: [id number] Cosigned by: [id number] Admin: 03/15/22 20:39 Dose: 5 units Documented by: [id number] Cosigned by: [id number] Admin: 03/15/22 09:02 Dose: 5 units Documented by: [id number] Cosigned by: [id number] Admin: 03/14/22 20:43 Dose: 5 units Documented by: [id number] Cosigned by: [id number] Admin: 03/14/22 09:50 Dose: 5 units Documented by: [id number] Cosigned by: [id number] Admin: 03/13/22 20:44 Dose: 5 units Documented by: [id number] Cosigned by: [id number] Admin: 03/13/22 09:34 Dose: 5 units Documented by: [id number] Cosigned by: [id number] Ioversol (Optiray 320 100ml) 94 ml IV ONCE ONE Stop: 03/12/22 19:03 Last Admin: 03/12/22 19:02 Dose: 94 ml Documented by: [id number] Loratadine (Loratadine 10 Mg Tab) 10 mg PO QAM [facility] Stop: 04/12/22 08:59 Last Admin: 03/16/22 09:19 Dose: 10 mg Documented by: [id number] Admin: 03/15/22 08:59 Dose: 10 mg Documented by: [id number] Admin: 03/14/22 09:50 Dose: 10 mg Documented by: [id number] Admin: 03/13/22 09:34 Dose: 10 mg Documented by: [id number] Memantine (Memantine Hcl 5 Mg Tab) 5 mg PO BID [facility] Stop: 04/12/22 08:59 Last Admin: 03/16/22 09:18 Dose: 5 mg Documented by: [id number] Admin: 03/15/22 20:34 Dose: 5 mg Documented by: [id number] Admin: 03/15/22 08:58 Dose: 5 mg Documented by: [id number] Admin: 03/14/22 20:33 Dose: 5 mg Documented by: [id number] Admin: 03/14/22 09:50 Dose: 5 mg Documented by: [id number] Admin: 03/13/22 20:34 Dose: 5 mg Documented by: [id number] Admin: 03/13/22 09:34 Dose: 5 mg Documented by: [id number] Metoprolol Tartrate (Metoprolol Tartrate 100 Mg Tab) 100 mg PO Q12H [facility] Stop: 04/12/22 00:18 Last Admin: 03/16/22 09:28 Dose: 100 mg Documented by: [id number] Admin: 03/15/22 20:31 Dose: 100 mg Documented by: [id number] Admin: 03/15/22 11:36 Dose: 100 mg Documented by: [id number] Admin: 03/14/22 23:49 Dose: 100 mg Documented by: [id number] Admin: 03/14/22 12:38 Dose: 100 mg Documented by: [id number] Admin: 03/13/22 23:57 Dose: 100 mg Documented by: [id number] Admin: 03/13/22 12:53 Dose: 100 mg Documented by: [id number] Admin: 03/13/22 01:04 Dose: 100 mg Documented by: [id number] Miscellaneous (Stat Iv) 1 ea N/A NOW STA Stop: 03/12/22 22:24 Last Admin: 03/12/22 22:32 Dose: Not Given Documented by: [id number] Montelukast Sodium (Montelukast Sodium 10 Mg Tablet) 10 mg PO QPM [facility] Stop: 04/12/22 20:59 Last Admin: 03/15/22 20:31 Dose: 10 mg Documented by: [id number] Admin: 03/14/22 20:33 Dose: 10 mg Documented by: [id number] Admin: 03/13/22 20:34 Dose: 10 mg Documented by: [id number] Oxcarbazepine (Oxcarbazepine 150 Mg Tablet) 300 mg PO DAILY [facility] Stop: 04/12/22 08:59 Last Admin: 03/16/22 09:18 Dose: 300 mg Documented by: [id number] Admin: 03/15/22 08:58 Dose: 300 mg Documented by: [id number] Admin: 03/14/22 09:50 Dose: 300 mg Documented by: [id number] Admin: 03/13/22 09:33 Dose: 300 mg Documented by: [id number] Pantoprazole Sodium (Pantoprazole 40 Mg Tab) 40 mg PO QPM JOAO Stop: 04/12/22 20:59 Last Admin: 03/15/22 20:31 Dose: 40 mg Documented by: [id number] Admin: 03/14/22 20:33 Dose: 40 mg Documented by: [id number] Admin: 03/13/22 20:34 Dose: 40 mg Documented by: [id number] Prednisone (Prednisone 5 Mg Tab) 5 mg PO QAM JOAO Stop: 04/12/22 08:59 Last Admin: 03/16/22 09:19 Dose: 5 mg Documented by: [id number] Admin: 03/15/22 08:58 Dose: 5 mg Documented by: [id number] Admin: 03/14/22 09:50 Dose: 5 mg Documented by: [id number] Admin: 03/13/22 09:34 Dose: 5 mg Documented by: [id number] Ropinirole HCl (Ropinirole Hcl 0.25 Mg Tablet) 0.75 mg PO HS [facility] Stop: 04/12/22 20:59 Last Admin: 03/15/22 20:31 Dose: 0.75 mg Documented by: [id number] Admin: 03/14/22 20:33 Dose: 0.75 mg Documented by: [id number] Admin: 03/13/22 20:34 Dose: 0.75 mg Documented by: [id number] Umeclidinium Henderson (Umeclidinium Henderson 62.5mcg/Blister 7 Puffs/Inhaler) 1 puffs INH QAM [facility] Stop: 04/12/22 08:59 Last Admin: 03/16/22 09:19 Dose: 1 puffs Documented by: [id number] Admin: 03/15/22 08:58 Dose: 1 puffs Documented by: [id number] Admin: 03/14/22 09:50 Dose: 1 puffs Documented by: [id number] Admin: 03/13/22 09:36 Dose: 1 puffs Documented by: [id number] Imaging Data Radiologist's Impression: Chest X-Ray 03/12/22 18:12 XR chest 1V portable HISTORY: 76 years-old Male weakness acute weakness COMPARISON: Chest radiograph 07/06/2021, chest CT 05/12/2021 TECHNIQUE: AP view of the chest FINDINGS: Cardiac silhouette is enlarged. Calcified hilar lymph nodes. Aortic valve endograft. Chronic interstitial coarsening of the lung bases with linear bibasilar atelectasis/scarring. No pneumothorax, pleural effusion, airspace con solidation or overt pulmonary edema. Degenerative changes of the shoulders and spine. The bilateral pulmonary nodules described on comparison CT are not visualized. IMPRESSION: Cardiomegaly without acute process. ACT 112: Negative or not required by law. The above report was generated using voice recognition software. It may contain grammatical, syntax or spelling errors. Electronically signed by: Hesham Atkinson M.D. 03/12/2022 6:[address] 03/12/22 18:12 CT head/brain wo con CLINICAL HISTORY: 76 years-old Male with CHI. Acute head trauma status post fall. TECHNIQUE: Multiple axial CT images of the head were obtained without contrast. A dose lowering technique was utilized adhering to the principles of ALARA. COMPARISON: Head CT 12/12/2019 FINDINGS: No acute intracranial hemorrhage, midline shift, intracranial mass, hydroc ephalus, territorial ischemia or abnormal extra-axial collection. Age-related involutional changes. Mild white matter hypodensities suggest chronic microvascular ischemic disease. The calvarium is intact. Small right mastoid effusion. Mild mucosal thickening of the ethmoid air cells. Left mastoid air cells are clear. Unremarkable soft tissues. IMPRESSION: No acute intracranial abnormality or calvarial fracture. ACT 112: Negative or not required by law. The above report was generated using voice recognition software. It may contain grammatical, syntax or spelling errors. Electronically signed by: Hesham Atkinson M.D. 03/12/2022 7:17 PM Abdomen/Pelvis CT 03/12/22 18:[address] WITH IV CONTRAST CT DOSE: 2850.46 mGy.cm HISTORY: Acute diarrhea. Acute abdominal trauma status post fall diarrhea, fall, vomiting TECHNIQUE: Multiaxial CT images of the abdomen and pelvis were performed following the IV administration of 94 cc of Optiray, A dose lowering technique was utilized adhering to the principles of ALARA. COMPARISON STUDY: CT abdomen and pelvis 06/07/2014, PET CT 05/04/2020 FINDINGS: Stable 7 mm nodule of the right middle lobe, likely benign. Unchanged 3 mm nodule of the right lower lobe on image 19. Bibasilar atelectasis. Limited study secondary to upper extremity positioning and respiratory motion artifact. No pneumatosis or pneumoperitoneum. Cardiac megaly with aortic valvular prosthesis. Calcified left hilar lymph nodes. Coronary artery calcifications. Scattered calcified granulomata of the liver and spleen. Unremarkable appearance of the atrophic pancreas. Unremarkable adrenal glands. Cholelithiasis without CT evidence of acute cholecystitis. Calcified lymph nodes of the upper abdomen. P atent portal vein. Cortical thinning of the kidneys. Bilateral renal cysts, left greater the right measure up to 4.9 cm on the left. There are a few punctate nonobstructing calculi noted within the left kidney. Cortical punctate right nephrolithiasis. No ureteral calculi or hydronephrosis. Unremarkable urinary bladder and prostate. Small fat filled inguinal hernias. Obstruction or bowel wall thickening. The appendix is not visualized. No ascites or mesenteric inflammation. Calcified injection granulomata of the gluteal tissues. Bilateral gynecomastia. Chronic right with subacute to chronic left- sided nondisplaced rib fractures. No acute fracture identified. Degenerative changes of the spine, pelvis and hips. IMPRESSION: 1. No acute intra-abdominal or intrapelvic abnormality. 2. No bowel obstruction or bowel wall thickening. 3. No acute fracture identified. 4. Punctate nonobstructing bilateral nephrolithiasis. 5. Cholelithiasis. 6. Additional findings as above. ACT 112: Negative or not required by law. The above report was generated using voice recognition software. It may contain grammatical, syntax or spelling errors. Electronically signed by: Hesham Atkinson M.D. 03/12/2022 7:33 PM Blood Pressure Blood Pressure Findings: Elevated blood pressure Blood Pressure Disposition: further management by hospitalist Head Trauma GCS Score: 14 (Dementia, mild confusion) Discharge Plan Visit Data Chief Complaint: Fall ED Provider: Heaven[facility]as Discharge Problem: Elevated lactic acid level, Fall, Vomiting and diarrhea, Closed head injury Patient Disposition: Admitted As Inpatient Discharge Instructions Interventions: ED Discharge Assessment Last Done: 03/12/22 22:52 Discharge Problem: Fall Qualifiers: Encounter type: initial encounter Qualified Code(s): W19.XXXA - Unspecified fall, initial encounter Closed head injury Qualifiers: Encounter type: initial encounter Qualified Code(s): S09.90XA - Unspecified injury of head, initial encounter
[2022-03-12 18:30] LABS: Basophils # (auto) 0.01 K/uL (0-0.2); Basophils % (auto) 0.1 %; Eosinophils # (auto) 0.26 K/uL (0-0.5); Eosinophils % (auto) 3.3 %; Hematocrit (blood only) 40.1 % (42-52); Hemoglobin 13.3 g/dL (14.0-18.0); Immature Granulocytes # (auto) 0.03 K/uL (0.00-0.02); Immature Granulocytes % (auto) 0.4 %; Lymphocytes # (auto) 0.35 K/uL (1.2-3.4); Lymphocytes % (auto) 4.4 %; Mean Corpuscular Hemoglobin 34.4 pg (25-34); Mean Corpuscular Hgb Conc 33.2 g/dL (32-36); Mean Corpuscular Volume 103.6 fL (80-100); Mean Platelet Volume 10.5 fL (7.4-10.4); Monocytes # (auto) 0.55 K/uL (0.11-0.59); Monocytes % (auto) 6.9 %; Neutrophils # (auto) 6.73 K/uL (1.4-6.5); Neutrophils % (auto) 84.9 %; Platelet Count 171 K/uL (130-400); RDW Coefficient of Variation 15.8 % (11.5-14.5); RDW Standard Deviation 59.4 fL (36.4-46.3); Red Blood Count 3.87 M/uL (4.7-6.1); White Blood Count 7.93 K/uL (4.8-10.8)
--- NOTE | 2022-03-12 18:39 | XRay Report ---
XR chest 1V portable HISTORY: 76 years-old Male weakness acute weakness COMPARISON: Chest radiograph 07/06/2021, chest CT 05/12/2021 TECHNIQUE: AP view of the chest FINDINGS: Cardiac silhouette is enlarged. Calcified hilar lymph nodes. Aortic valve endograft. Chronic intersti tial coarsening of the lung bases with linear bibasilar atelectasis/scarring. No pneumothorax, pleura l effusion, airspace consolidation or overt pulmonary edema. Degenerative changes of the shoulders an d spine. The bilateral pulmonary nodules described on comparison CT are not visualized. IMPRESSION: Cardiomegaly without acute process. ACT 112: Negative or not required by law. The above report was generated using voice recognition software. It may contain grammatical, syntax o r spelling errors. Electronically signed by: Hesham Atkinson M.D. 03/12/2022 6:38 PM
[2022-03-12 18:53] LABS: Albumin Globulin Ratio 1.4 (0.9-2); Albumin Level 4.2 gm/dl (3.4-5.0); BUN Creatinine Ratio 18.3 (10-20); Bilirubin,Total 0.6 mg/dl (0.2-1.0); Calcium 8.8 mg/dl (8.5-10.1); Creatinine Clr Calc Pharmacy 62.8 ml/min; Est GFR (African American) 67.7 ml/min; Est GFR (Non-African American) 58.4 ml/min; Magnesium 1.2 mg/dl (1.7-2.4); Potassium 4.5 mmol/L (3.5-5.1); Total Protein 7.2 gm/dl (6.0-8.3)
[2022-03-12 18:59] LABS: Troponin I High Sensitivity 14.8 pg/ml (0-20)
[2022-03-12] MEDS ORDERED: OPTIRAY 320 100ml IV ONE (19:02)
--- NOTE | 2022-03-12 19:18 | CT Scan Report ---
CT head/brain wo con CLINICAL HISTORY: 76 years-old Male with CHI. Acute head trauma status post fall. TECHNIQUE: Multiple axial CT images of the head were obtained without contrast. A dose lowering tech nique was utilized adhering to the principles of ALARA. COMPARISON: Head CT 12/12/2019 FINDINGS: No acute intracranial hemorrhage, midline shift, intracranial mass, hydrocephalus, territorial ischem ia or abnormal extra-axial collection. Age-related involutional changes. Mild white matter hypodensit ies suggest chronic microvascular ischemic disease. The calvarium is intact. Small right mastoid effusion. Mild mucosal thickening of the ethmoid air ce lls. Left mastoid air cells are clear. Unremarkable soft tissues. IMPRESSION: No acute intracranial abnormality or calvarial fracture. ACT 112: Negative or not required by law. The above report was generated using voice recognition software. It may contain grammatical, syntax o r spelling errors. Electronically signed by: Hesham Atkinson M.D. 03/12/2022 7:17 PM
[2022-03-12] MEDS: MAGNESIUM SULFATE / D5W 1 GM/100 ML BAG IV SCH ×2 (19:28→20:01)
--- NOTE | 2022-03-12 19:36 | CT Scan Report ---
ABDOMEN AND PELVIS CT WITH IV CONTRAST CT DOSE: 2850.46 mGy.cm HISTORY: Acute diarrhea. Acute abdominal trauma status post fall diarrhea, fall, vomiting TECHNIQUE: Multiaxial CT images of the abdomen and pelvis were performed following the IV administrat ion of 94 cc of Optiray, A dose lowering technique was utilized adhering to the principles of ALARA. COMPARISON STUDY: CT abdomen and pelvis 06/07/2014, PET CT 05/04/2020 FINDINGS: Stable 7 mm nodule of the right middle lobe, likely benign. Unchanged 3 mm nodule of the ri ght lower lobe on image 19. Bibasilar atelectasis. Limited study secondary to upper extremity positio zuly and respiratory motion artifact. No pneumatosis or pneumoperitoneum. Cardiac megaly with aortic valvular prosthesis. Calcified left hilar lymph nodes. Coronary artery calcifications. Scattered calcified granulomata of the liver and spleen. Unremarkable appearance of the atrophic panc reas. Unremarkable adrenal glands. Cholelithiasis without CT evidence of acute cholecystitis. Calcifi ed lymph nodes of the upper abdomen. Patent portal vein. Cortical thinning of the kidneys. Bilateral renal cysts, left greater the right measure up to 4.9 cm on the left. There are a few punctate nonobs tructing calculi noted within the left kidney. Cortical punctate right nephrolithiasis. No ureteral c alculi or hydronephrosis. Unremarkable urinary bladder and prostate. Small fat filled inguinal hernia s. Obstruction or bowel wall thickening. The appendix is not visualized. No ascites or mesenteric inflam mation. Calcified injection granulomata of the gluteal tissues. Bilateral gynecomastia. Chronic right with subacute to chronic left-sided nondisplaced rib fractures. No acute fracture identified. Degene rative changes of the spine, pelvis and hips. IMPRESSION: 1. No acute intra-abdominal or intrapelvic abnormality. 2. No bowel obstruction or bowel wall thickening. 3. No acute fracture identified. 4. Punctate nonobstructing bilateral nephrolithiasis. 5. Cholelithiasis. 6. Additional findings as above. ACT 112: Negative or not required by law. The above report was generated using voice recognition software. It may contain grammatical, syntax o r spelling errors. Electronically signed by: Hesham Atkinson M.D. 03/12/2022 7:33 PM
[2022-03-12 20:08] LABS: iSTAT Creatinine 1.2 mg/dl (0.6-1.3); iSTAT Hemoglobin 14.6 g/dl (14.0-18.0); iSTAT Ionized Calcium 1.06 mmol/l (1.12-1.32); iSTAT Potassium 4.5 mmol/L (3.3-5.0)
[2022-03-12] MEDS ORDERED: SODIUM CHLORIDE 0.9% 500 ML IV ONE (20:11)
[2022-03-12 20:12] LABS: Appearance Urine Clear (Clear); Bacteria Urine Automated Negative (Negative); Bilirubin Urine Negative (Negative); Blood Urine Negative (Negative); Cast Urine Automated 0 /lpf (0-5); Color Urine Yellow; Glucose Urine UA 2+ (Negative); Ketones Urine Negative (Negative); Leukocyte Esterase Urine Negative (Negative); Nitrite Urine Negative (Negative); Protein Urine Trace (Negative); RBC Urine Automated 0-4 /hpf (0-4); Specific Gravity Urine 1.025 (1.000-1.030); Urobilinogen Urine Negative (Negative); WBC Urine Automated 0 /hpf (0-5)
[2022-03-12 20:29] LABS: Influenza A virus by PCR Negative (Neg); Influenza B virus by PCR Negative (Neg); RSV by PCR Negative (Neg); SARS CoV2 RNA(COVID-19) InHosp NEGATIVE (Negative)
[2022-03-12] MEDS ORDERED: PIPERACILL/TAZOBAC CONSULT ACTIVE PRN (20:35)
[2022-03-12] MEDS ORDERED: PIPERACILLIN/TAZOBACTAM 4.5 GM/120 ML BAG IV ONE (20:35)
[2022-03-12] MEDS ORDERED: STAT IV STA (22:23)
[2022-03-12] MEDS ORDERED: MAGNESIUM SULFATE / D5W 1 GM/100 ML BAG IV STA (22:23)
--- NOTE | 2022-03-12 22:24 | History & Physical Report ---
Date of Service March 12, 2022 Assessment & Plan (1) Nausea vomiting and diarrhea: Plan: 76yo male with multiple medical comorbidities presenting with one day of nausea, vomiting, diarrhea. Patient with electrolyte abnormality to include hypocalcemia and hypomagnesemia as well as elevated lactic acid in the ER. Possibly secondary to acute n/v/d as well as poor dietary intake. Symptoms have seemingly resolved at this time. Patient denies nausea. -Gentle IVF - LR at 80mL/hr x 1 liter -Electrolyte repletion - Mg x 5 gm with repeat level in AM. Calcium x 1gm calcium gluconate -Zofran PRN nausea -GI PCR Panel ordered in ER - follow results (2) Fall: Plan: Patient with fall at home trying to get to the toilet. Head trauma - hematoma over left eye. No focal deficits. No loss of consciousness -Check CK -Neuro checks with GCS q shift (3) Generalized weakness: Plan: Possibly secondary to acute illness + deconditioning -Hydration and electrolyte repletion as above -PT/OT evaluation (4) Rheumatoid arthritis: Plan: Chronic. RA involving multiple sites. Patient follows with Rheumatology -Continue Hydroxychloroquine 400mg po qHS -Continue Prednisone 5mg po daily -Continue Methotrexate 15mg po weekly (5) COPD (chronic obstructive pulmonary disease): Plan: Chronic. Adequate oxygenation on room air. Patient follows with Pulmonary - last seen on 08/28/21. -Continue Incruse Ellipta (6) Alzheimer's disease: Plan: Chronic. Patient follows with Neurology. Last seen on 12/05/21 -Continue memantine 5mg po BID -Continue Oxcarbazepine for agitation -Frequent orientation, delirium prevention strategies (7) CKD (chronic kidney disease): Plan: BUN and Cr near baseline -Monitor renal function and electrolytes -Check CK as above -Gentle hydration and electrolyte repletion -Avoid nephrotoxic agents (8) Depression: Plan: Chronic. Stable on medications -Continue Escitalopram 20mg po daily (9) Essential hypertension: Plan: Chronic. Stable -Continue Metoprolol 100mg po BID -Continue to monitor (10) GERD without esophagitis: Plan: Chronic. Stable on medications -Continue Protonix 40mg po daily (11) Hyperlipidemia: Plan: Chronic -Continue Atorvastatin (12) Obstructive sleep apnea: Plan: -CPAP 8cmH2O qHS (13) CAD (coronary artery disease): Plan: Chronic -Continue ASA 81mg po daily -Continue Plavix 75mg po daily -Continue Atorvastatin (14) Type 2 diabetes mellitus: Plan: Fairly well controlled - last [id number]=8.3 on 08/28/21. Patient on oral agents - Metformin and Glimepiride -Hold oral agents -Lantus 5u BID -ISS -Goal blood sugar 100 -140 Plan: F/E/N - LR x 1 liter, repeat chemistry, Mg and ICal in AM - additional repletion as needed Ppx - SCDs Code - Full per discussion with patient and daughter Dispo - Admit to medical with telemetry History of Present Illness Chief Complaint: nause, vomiting, diarrhea, fall at home Primary Care Provider: DO Kodi Banuelos Irina is a 76yo C male with history of dementia, COPD, CKD, HTN, HLP, RA on immunosuppressive therapy, DM presenting from home after a fall in the bathroom. Patient with underlying dementia - does not recollect the events prior to arriv al to the ER. History obtained mainly through chart review and discussion with daughter at bedside. Patient slept in late today and came downstairs around 13:00. He reported feeling weak and unsteady on his feet. He had multiple episodes of non-bloody vomiting as well as watery diarrhea. He was trying to get to the toilet when he fell and became wedged between the toilet and the wall. He struck the left side of his head. Did not reportedly lose consciousness. He was unable to get up by himself and his had to help him up. The daughter thinks he was on the floor approximately 1 hour before getting up. Patient denies fever, chills, chest pain, cough, SOB, abdominal pain. He has no additional complaints at this time. Last episode of vomiting and diarrhea was prior to arrival. ER Course: NSS x 1.5L, Zosyn, Magnesium x 1gm Allergies Allergy/AdvReac Type Severity Reaction Status Date / Time auranofin Allergy Severe SHORTNESS Verified 03/12/22 19:44 OF BREATH Gold Salts Allergy Unknown HIVES TO Verified 03/12/22 19:44 GOLD SHOTS Home Medications Medication Instructions Recorded Confirmed Type omeprazole 20 mg capsule,delayed 20 mg PO QAM #90 cap 06/03/19 03/12/22 History release multivitamin (Multiple Vitamins) 1 tab PO QAM 06/19/19 03/12/22 History aspirin 81 mg tablet,delayed 81 mg PO QAM #90 tab 07/09/19 03/12/22 History release hydroxychloroquine 200 mg tablet 400 mg PO HS #60 tab 07/09/19 03/12/22 History loratadine 10 mg tablet 10 mg PO QAM #90 tab 07/09/19 03/12/22 History magnesium oxide 400 mg (241.3 mg 400 mg PO QAM tab 07/09/19 03/12/22 History magnesium) tablet cholecalciferol (vitamin D3) 25 25 mcg PO BID 12/12/19 03/12/22 History mcg (1,000 unit) capsule (Vitamin D3) cyanocobalamin (vitamin B-12) 1,000 mcg PO BID 12/12/19 03/12/22 History 1,000 mcg tablet potassium gluconate 595 mg (99 mg) 595 mg PO QAM 12/12/19 03/12/22 History tablet albuterol sulfate 2.5 mg INHALATION Q4H PRN #180 ml 09/01/20 03/12/22 Rx CPAP Supplies #1 ea 03/16/21 12/05/21 Rx glimepiride 1 mg tablet 1 mg PO BID #180 tab 03/29/21 03/12/22 Rx prednisone 5 mg tablet 5 mg PO QAM 03/31/21 03/12/22 History ascorbic acid (vitamin C) 100 mg 100 mg PO QAM tab 05/10/21 03/12/22 History tablet lactobacillus combination no.4 3 3,000 mmu cells PO QAM cap 05/10/21 03/12/22 History billion cell capsule (Probiotic) metoprolol tartrate 100 mg tablet 100 mg PO Q12H #180 tab 05/10/21 03/12/22 Rx nitroglycerin 0.4 mg sublingual 0.4 mg SL Q5M PRN #25 tab 05/10/21 03/12/22 Rx tablet amoxicillin 500 mg tablet 2,000 mg PO ONCE #4 tab 07/03/21 03/12/22 Rx escitalopram oxalate 20 mg tablet 20 mg PO DAILY 90 Days #90 tab 10/18/21 03/12/22 Rx albuterol sulfate 90 mcg/actuation 2 inh INHALATION Q6H PRN #18 g 11/01/21 03/12/22 Rx aerosol inhaler umeclidinium 62.5 mcg/actuation 1 inh INHALATION QAM #30 ea 11/01/21 03/12/22 Rx blister powder for inhalation (Incruse Ellipta) oxcarbazepine 300 mg tablet 300 mg PO DAILY #90 tab 11/30/21 03/12/22 Rx clopidogrel 75 mg tablet 75 mg PO QPM #90 tab 12/08/21 03/12/22 Rx pantoprazole 40 mg tablet,delayed 40 mg PO QPM #90 tab 12/08/21 03/12/22 Rx release furosemide 20 mg tablet 20 mg PO QAM #90 tab 12/25/21 03/12/22 Rx ropinirole 0.5 mg tablet 0.75 mg PO HS #135 tab 01/31/22 03/12/22 Rx memantine 5 mg tablet 5 mg PO BID #180 tab 02/26/22 03/12/22 Rx atorvastatin 40 mg tablet 40 mg PO QAM 03/12/22 03/12/22 History folic acid 1 mg tablet 1 mg PO DAILY 03/12/22 03/12/22 History metformin 1,000 mg tablet 1,000 mg PO BID 03/12/22 03/12/22 History methotrexate sodium 2.5 mg tablet 15 mg PO WK 03/12/22 03/12/22 History montelukast 10 mg tablet 10 mg PO QPM 03/12/22 03/12/22 History Past Med/Surg History Medical History Alzheimer's disease Anxiety Aortic stenosis F/U DR FERRARA-AVR 12/[place] [facility] [place] [facility] [place] Bronchitis HX-2-3 YRS AGO Chronic low back pain Chronic obstructive pulmonary disease CKD (chronic kidney disease) F/U DR BOONE Depression Essential hypertension Hiatal hernia Hyperlipidemia Obesity Obstructive sleep apnea CPAP Osteoarthritis of knee Peptic ulcer HX Presence of drug-eluting stent in right coronary artery Restless legs Restrictive lung disease Rheumatoid arthritis Rheumatoid arthritis F/U DR MO Short-term memory loss SOB (shortness of breath) on exertion Tachycardia HX Tubular adenoma of colon Type 2 diabetes mellitus Venous insufficiency Surgical History H/O colonoscopy 2016 History of foot surgery CYSTS REMOVED-LEFT History of total knee replacement RIGHT Hx of appendectomy S/P AVR [facility] [place] [facility] [place] S/P cardiac catheterization 11/2019 [facility] 1 STENT S/P TAVR (transcatheter aortic valve replacement) Status post cardiac catheterization Family History Mother Diabetes Coronary heart disease Hypertension Brother Hypertension Sister Hypertension Father Hypertension Denies family history of Ovarian cancer Prostate cancer Myocardial infarction Breast cancer Colorectal cancer Social History Smoking Status: Never smoker Number of Years Since Quit: 43; Second Hand Exposure: No; Hx Alcohol Use: No Hx Substance Use: No Preferred Language: Uzbek Communication Ability: Effective Visual Impairment: No Limitations Hearing Ability: Hard of Hearing Brace Maker Required: No Beliefs That Will Affect Care: None marital status: Current Living Situation: Spouse Current Living Situation Comment: Lives w/ spouse @ home current occupational status: retired Feels Safe at Home: Yes Dental Care, Regularly: Yes Physical Activity Frequency: Does not Exercise Seatbelt Use: always Assistive Devices: CPAP Review of Systems Review of Systems: All systems reviewed & are unremarkable except as noted in HPI & below limited secondary to underlying dementia Physical Exam Physical Exam: General: patient resting comfortably, NAD, non-toxic in appearance, oriented to self Skin: warm, dry, intact, hematoma over left eye HEENT: PERRL, EOMI, anicteric sclera, conjunctiva without injection, external ear normal to inspection and nontender, nares patent, moist mucus membranes, dentition intact, no oropharyngeal lesions, neck supple, trachea midline, no LAD, no thyromegaly, no JVD Heart: +S1/S2, regular, no m/r/g Lungs: equal air entry bilaterally, no rales/rhonchi/wheezes Abd: +BS, hyperactive, soft, NT, mildly distended, tympanic to percussion, no masses/organomegaly/ascites Ext: warm, 2+ pulses in UE/LE bilaterally, no clubbing/cyanosis or edema Neuro: nonfocal, patient AA&O to self, speech intact, no facial droop, moving all extremities on command with equal strength 5/5 Results & Data Results & Data ([facility]) Vital Signs (Past 12 Hours) Vital Signs Temp Pulse Resp BP Pulse Ox 03/12/22 21:48 86 20 151/78 H 93 03/12/22 21:00 81 19 157/74 H 93 03/12/22 20:00 84 22 170/83 H 92 03/12/22 19:49 87 19 148/95 H 93 03/12/22 19:31 86 21 148/95 H 94 03/12/22 18:58 93 03/12/22 18:30 85 22 193/100 H 94 03/12/22 18:00 37.3 C 87 22 178/96 H 93 Laboratory Results Laboratory Results WBC 7.93 K/uL (4.8-10.8) 03/12/22 18:19 RBC 3.87 M/uL (4.7-6.1) L 03/12/22 18:19 Hgb 13.3 g/dL (14.0-18.0) L 03/12/22 18:19 POC Hgb 14.6 g/dl (14.0-18.0) 03/12/22 18:22 Hct 40.1 % (42-52) L 03/12/22 18:19 POC Hct 43 % (42-52) 03/12/22 18:22 MCV 103.6 fL (80-100) H 03/12/22 18:19 MCH 34.4 pg (25-34) H 03/12/22 18:19 MCHC 33.2 g/dL (32-36) 03/12/22 18:19 RDW Std Deviation 59.4 fL (36.4-46.3) H 03/12/22 18:19 RDW Coeff of Farideh 15.8 % (11.5-14.5) H 03/12/22 18:19 Plt Count 171 K/uL (130-400) 03/12/22 18:19 MPV 10.5 fL (7.4-10.4) H 03/12/22 18:19 Immature Gran % (Auto) 0.4 % 03/12/22 18:19 Neut % (Auto) 84.9 % 03/12/22 18:19 Lymph % (Auto) 4.4 % 03/12/22 18:19 [place] % (Auto) 6.9 % 03/12/22 18:19 Eos % (Auto) 3.3 % 03/12/22 18:19 Baso % (Auto) 0.1 % 03/12/22 18:19 Neut # (Auto) 6.73 K/uL (1.4-6.5) H 03/12/22 18:19 Lymph # (Auto) 0.35 K/uL (1.2-3.4) L 03/12/22 18:19 [place] # (Auto) 0.55 K/uL (0.11-0.59) 03/12/22 18:19 Eos # (Auto) 0.26 K/uL (0-0.5) 03/12/22 18:19 Baso # (Auto) 0.01 K/uL (0-0.2) 03/12/22 18:19 Immature Gran # (Auto) 0.03 K/uL (0.00-0.02) H 03/12/22 18: POC Sodium 140 mmol/L (135-144) 03/12/22 18: Sodium 138 mmol/L (136-145) 03/12/22 18: POC Potassium 4.5 mmol/L (3.3-5.0) 03/12/22 18: Potassium 4.5 mmol/L (3.5-5.1) 03/12/22 18: POC Chloride 99 mmol/L (101-112) L 03/12/22 18: Chloride 101 mmol/L (98-107) 03/12/22 18: Carbon Dioxide 28 mmol/L (21-32) 03/12/22 18: POC Total CO2 24 mmol/L (24-31) 03/12/22 18: Anion Gap 9 (3-11) 03/12/22 18: POC Anion Gap 22.0 mmol/L (16-25) 03/12/22 18: POC BUN 21 mg/dl (7-18) H 03/12/22 18: BUN 22 mg/dl (6-23) 03/12/22 18: Creatinine 1.20 mg/dl (0.6-1.4) 03/12/22 18:19 POC Creatinine 1.2 mg/dl (0.6-1.3) 03/12/22 18: Est Cr Clr Drug Dosing 62.8 ml/min 03/12/22 18:19 Est GFR ( Amer) 67.7 ml/min 03/12/22 18:19 Est GFR (Non-Af Amer) 58.4 ml/min 03/12/22 18:19 BUN/Creatinine Ratio 18.3 (10-20) 03/12/22 18:19 Glucose 186 mg/dl (70-99(Fasting)) H 03/12/22 18:19 POC Glucose (other) 193 mg/dl (70-99) H 03/12/22 18: Lactate 3.0 mmol/L (0.4-2.0) H* 03/12/22 20:03 Calcium 8.8 mg/dl (8.5-10.1) 03/12/22 18:19 POC Ioniz Calcium Luz 1.06 mmol/l (1.12-1.32) L 03/12/22 18: Magnesium 1.2 mg/dl (1.7-2.4) L 03/12/22 18:19 Total Bilirubin 0.6 mg/dl (0.2-1.0) 03/12/22 18: AST 31 U/L (13-39) 03/12/22 18:19 ALT 33 U/L (7-52) 03/12/22 18:19 Alkaline Phosphatase 63 U/L (34-104) 03/12/22 18:19 Troponin I High Sens 14.8 pg/ml (0-20) 03/12/22 18:19 Total Protein 7.2 gm/dl (6.0-8.3) 03/12/22 18:19 Albumin 4.2 gm/dl (3.4-5.0) 03/12/22 18: Globulin 3.0 gm/dl (2.5-4.0) 03/12/22 18:19 Albumin/Globulin Ratio 1.4 (0.9-2) 03/12/22 18: TSH 2.477 uIu/ml (0.300-4.500) 03/12/22 18:19 Urine Color Yellow 03/12/22 19:18 Urine Appearance Clear (Clear) 03/12/22 19:18 Urine pH 6.0 (4.5-7.5) 03/12/22 19:18 Ur Specific [place] 1.025 (1.000-1.030) 03/12/22 19:18 Urine Protein Trace (Negative) H 03/12/22 19:18 Urine Glucose (UA) 2+ (Negative) H 03/12/22 19:18 Urine Ketones Negative (Negative) 03/12/22 19:18 Urine Blood Negative (Negative) 03/12/22 19:18 Urine Nitrite Negative (Negative) 03/12/22 19:18 Urine Bilirubin Negative (Negative) 03/12/22 19:18 Urine Urobilinogen Negative (Negative) 03/12/22 19:18 Ur Leukocyte Esterase Negative (Negative) 03/12/22 19:18 Urine WBC (Auto) 0 /hpf (0-5) 03/12/22 19:18 Urine RBC (Auto) 0-4 /hpf (0-4) 03/12/22 19:18 U Hyaline Cast (Auto) 0 /lpf (0-5) 03/12/22 19:18 U Epithel Cells (Auto) 5-10 /lpf (0-5) H 03/12/22 19:18 Urine Bacteria (Auto) Negative (Negative) 03/12/22 19:18 SARS-CoV-2 (PCR) NEGATIVE (Negative) 03/12/22 19:31 Influenza Type A (PCR) Negative (Neg) 03/12/22 19:31 Influenza Type B (PCR) Negative (Neg) 03/12/22 19:31 RSV (RT-PCR) Negative (Neg) 03/12/22 19:31 Impressions Chest X-Ray 03/12/22 18:12 XR chest 1V portable HISTORY: 76 years-old Male weakness acute weakness COMPARISON: Chest radiograph 07/06/2021, chest CT 05/12/2021 TECHNIQUE: AP view of the chest FINDINGS: Cardiac silhouette is enlarged. Calcified hilar lymph nodes. Aortic valve endograft. Chronic interstitial coarsening of the lung bases with linear bibasilar atelectasis/scarring. No pneumothorax, pleural effusion, airspace consolidation or overt pulmonary edema. Degenerative changes of the shoulders and spine. The bilateral pulmonary nodules described on comparison CT are not visualized. IMPRESSION: Cardiomegaly without acute process. ACT 112: Negative or not required by law. The above report was generated using voice recognition software. It may contain grammatical, syntax or spelling errors. Electronically signed by: Hesham Atkinson M.D. 03/12/2022 6:[address] 03/12/22 18:12 CT head/brain wo con CLINICAL HISTORY: 76 years-old Male with CHI. Acute head trauma status post fall. TECHNIQUE: Multiple axial CT images of the head were obtained without contrast. A dose lowering technique was utilized adhering to the principles of ALARA. COMPARISON: Head CT 12/12/2019 FINDINGS: No acute intracranial hemorrhage, midline shift, intracranial mass, hydrocephalus, territorial ischemia or abnormal extra-axial collection. Age- related involutional changes. Mild white matter hypodensities suggest chronic microvascular ischemic disease. The calvarium is intact. Small right mastoid effusion. Mild mucosal thickening of the ethmoid air cells. Left mastoid air cells are clear. Unremarkable soft tissues. IMPRESSION: No acute intracranial abnormality or calvarial fracture. ACT 112: Negative or not required by law. The above report was generated using voice recognition software. It may contain grammatical, syntax or spelling errors. Electronically signed by: Hesham Atkinson M.D. 03/12/2022 7:17 PM Abdomen/Pelvis CT 03/12/22 18:[address] WITH IV CONTRAST CT DOSE: 2850.46 mGy.cm HISTORY: Acute diarrhea. Acute abdominal trauma status post fall diarrhea, fall, vomiting TECHNIQUE: Multiaxial CT images of the abdomen and pelvis were performed following the IV administration of 94 cc of Optiray, A dose lowering technique was utilized adhering to the principles of ALARA. COMPARISON STUDY: CT abdomen and pelvis 06/07/2014, PET CT 05/04/2020 FINDINGS: Stable 7 mm nodule of the right middle lobe, likely benign. Unchanged 3 mm nodule of the right lower lobe on image 19. Bibasilar atelectasis. Limited study secondary to upper extremity positioning and respiratory motion artifact. No pneumatosis or pneumoperitoneum. Cardiac megaly with aortic valvular pro sthesis. Calcified left hilar lymph nodes. Coronary artery calcifications. Scattered calcified granulomata of the liver and spleen. Unremarkable appearance of the atrophic pancreas. Unremarkable adrenal glands. Cholelithiasis without CT evidence of acute cholecystitis. Calcified lymph nodes of the upper abdomen. Patent portal vein. Cortical thinning of the kidneys. Bilateral renal cysts, left greater the right measure up to 4.9 cm on the left. There are a few punctate nonobstructing calculi noted within the left kidney. Cortical punctate right nephrolithiasis. No ureteral calculi or hydronephrosis. Unremarkable urinary bladder and prostate. Small fat filled inguinal hernias. Obstruction or bowel wall thickening. The appendix is not visualized. No ascites or mesenteric inflammation. Calcified injection granulomata of the gluteal tissues. Bilateral gynecomastia. Chronic right with subacute to chronic left- sided nondisplaced rib fractures. No acute fracture identified. Degenerative ch anges of the spine, pelvis and hips. IMPRESSION: 1. No acute intra-abdominal or intrapelvic abnormality. 2. No bowel obstruction or bowel wall thickening. 3. No acute fracture identified. 4. Punctate nonobstructing bilateral nephrolithiasis. 5. Cholelithiasis. 6. Additional findings as above. ACT 112: Negative or not required by law. The above report was generated using voice recognition software. It may contain grammatical, syntax or spelling errors. Electronically signed by: Hesham Atkinson M.D. 03/12/2022 7:33 PM ECG Additional Comments: NSR at 87, no acute ischemic changes Code Status & VTE Plan VTE Prophylaxis Plan VTE Prophylaxis will be ordered: Yes PG Care Time/CCT Total # of Minutes Spent Total Time Spent with Patient: Total time spent is greater than 50% in coordination of care (as documented) at patient's floor/unit and/or counseling patient: Coding Level of Care Code 41292 Initial Inpt Care Lvl 3 Diagnoses Rheumatoid arthritis M06.9 COPD (chronic obstructive pulmonary disease) J44.9 Alzheimer's disease G30.9; F02.80 CKD (chronic kidney disease) N18.9 Depression F32.9 Essential hypertension I10 GERD without esophagitis K21.9 Hyperlipidemia E78.5 Obstructive sleep apnea G47.33 CAD (coronary artery disease) I25.10 Nausea vomiting and diarrhea R11.2; R19.7 Generalized weakness R53.1 Fall W19.XXXA Type 2 diabetes mellitus E11.9
[2022-03-13] MEDS ORDERED: CARBOHYDRATES FOR HYPOGLYCEMIA PO PRN (00:19)
[2022-03-13] MEDS ORDERED: GLUCOSE 40% GEL 15 GM TUBE PO PRN (00:19)
[2022-03-13] MEDS ORDERED: ACETAMINOPHEN 325 MG TAB PO PRN (00:19)
[2022-03-13] MEDS ORDERED: DEXTROSE 50% 50 ML SYRINGE IV PRN (00:19)
[2022-03-13] MEDS ORDERED: ALBUTEROL 0.083% NEBU SOLN 3 ML VIAL INH PRN (00:19)
[2022-03-13] MEDS ORDERED: GLUCOSE 10 TABS/TUBE PO PRN (00:19)
[2022-03-13] MEDS ORDERED: ONDANSETRON INJ 2 MG/ML 2 ML VIAL IV PRN (00:19)
[2022-03-13] MEDS ORDERED: LACTATED RINGER'S 1,000 ML IV SCH (00:19)
[2022-03-13] MEDS ORDERED: GLUCAGON FOR INJ 1 MG VIAL SQ PRN (00:19)
[2022-03-13] MEDS ORDERED: CALCIUM GLUCONATE 10% 1,000 MG in DEXTROSE 5% 50 ML IV ONE (00:30)
[2022-03-13] MEDS: METOPROLOL TARTRATE 100 MG TAB PO SCH ×3 (01:04→23:57)
[2022-03-13] MEDS: MAGNESIUM SULFATE / D5W 1 GM/100 ML BAG IV SCH ×3 (01:04→04:51)
[2022-03-13 07:22] LABS: Basophils # (auto) 0.01 K/uL (0-0.2); Basophils % (auto) 0.1 %; Eosinophils # (auto) 0.17 K/uL (0-0.5); Eosinophils % (auto) 2.4 %; Hematocrit (blood only) 36.3 % (42-52); Immature Granulocytes # (auto) 0.02 K/uL (0.00-0.02); Immature Granulocytes % (auto) 0.3 %; Lymphocytes # (auto) 0.74 K/uL (1.2-3.4); Lymphocytes % (auto) 10.5 %; Mean Corpuscular Hemoglobin 33.8 pg (25-34); Mean Corpuscular Hgb Conc 33.1 g/dL (32-36); Mean Corpuscular Volume 102.3 fL (80-100); Mean Platelet Volume 9.8 fL (7.4-10.4); Monocytes # (auto) 0.69 K/uL (0.11-0.59); Monocytes % (auto) 9.8 %; Neutrophils % (auto) 76.9 %; Platelet Count 146 K/uL (130-400); RDW Coefficient of Variation 15.9 % (11.5-14.5); RDW Standard Deviation 59.5 fL (36.4-46.3); Red Blood Count 3.55 M/uL (4.7-6.1); White Blood Count 7.03 K/uL (4.8-10.8)
[2022-03-13 07:53] LABS: BUN Creatinine Ratio 16.2 (10-20); Calcium 8.3 mg/dl (8.5-10.1); Creatinine Clr Calc Pharmacy 76.3 ml/min; Est GFR (African American) 85.4 ml/min; Est GFR (Non-African American) 73.7 ml/min; Magnesium 2.3 mg/dl (1.7-2.4); Potassium 4.3 mmol/L (3.5-5.1)
--- NOTE | 2022-03-13 08:59 | Hospitalist Progress Note ---
Date of Service March 13, 2022 Assessment & Plan (1) Nausea vomiting and diarrhea: Plan: 76yo male with multiple medical comorbidities presenting with one day of nausea, vomiting, diarrhea. Patient with electrolyte abnormality to include hypocalcemia and hypomagnesemia as well as elevated lactic acid in the ER. Possibly secondary to acute n/v/d as well as poor dietary intake. Symptoms have seemingly resolved at this time. patient report today this is more of a chronic problem -Electrolyte repletion - Mg x 5 gm with repeat level in AM. Calcium x 1gm calcium gluconate -Zofran PRN nausea -GI PCR Panel pending if ongoing diarrhea (2) Fall: Plan: Patient with fall at home trying to get to the toilet. Head trauma - hematoma over left eye. CT head - no acute pathology. No focal deficits. No loss of consciousness -Back pain - no # on CT A/P, will get lumbar spine XR -Check CK - WNL -PT/OT evals (3) Generalized weakness: Plan: Possibly secondary to acute illness + deconditioning -No infective etiology seen -PT/OT evaluation -B12 level previously normal, no need to repeat this. -Suspect more chronic than acute. (4) Rheumatoid arthritis: Plan: Chronic. RA involving multiple sites. Patient follows with Rheumatology -Continue Hydroxychloroquine 400mg po qHS -Continue Prednisone 5mg po daily -Continue Methotrexate 15mg po weekly (5) COPD (chronic obstructive pulmonary disease): Plan: Chronic. Adequate oxygenation on room air. Patient follows with Pulmonary - last seen on 08/28/21. -Continue Incruse Ellipta (6) Alzheimer's disease: Plan: Chronic. Patient follows with Neurology. Last seen on 12/05/21 -Continue memantine 5mg po BID -Continue Oxcarbazepine for agitation -Frequent orientation, delirium prevention strategies (7) CKD (chronic kidney disease): Plan: BUN and Cr near baseline -Monitor renal function and electrolytes -Avoid nephrotoxic agents (8) Depression: Plan: Chronic. Stable on medications -Continue Escitalopram 20mg po daily (9) Essential hypertension: Plan: Chronic. Stable -Continue Metoprolol 100mg po BID -Continue to monitor (10) GERD without esophagitis: Plan: Chronic. Stable on medications -Continue Protonix 40mg po daily (11) Hyperlipidemia: Plan: Chronic -Continue Atorvastatin (12) Obstructive sleep apnea: Plan: -CPAP 8cmH2O qHS (13) CAD (coronary artery disease): Plan: Chronic -Continue ASA 81mg po daily -Continue Plavix 75mg po daily -Continue Atorvastatin (14) Type 2 diabetes mellitus: Plan: Fairly well controlled - last GwuQ6X=7.3 on 08/28/21. Patient on oral agents - Metformin and Glimepiride -Hold oral agents -Lantus 5u BID -ISS -Goal blood sugar 100 -140 (15) Dysphagia: Plan: SLT assessment Plan: Ppx - SCDs Code - Full per discussion with patient and daughter Dispo - Admit to med/surg, medically stable for discharge pending PT/OT evals and SLT assessment Admission and Anticipated Discharge Date Admission Date: March 12, 2022 Subjective Patient reports he is here mainly for a fall. Fall due to being unbalanced after using the toilet. No chest pain, shortness of breath or dizziness prior to falling. Is otherwise mostly at baseline. Some concern for diarrhea on admission although patient reports this is more of a chronic rather than acute issue. No abdominal pain, nausea or vomiting. Coughing after eating noted by his nurse. Review of Systems Review of Systems: All systems reviewed & are unremarkable except as noted in Subjective Physical Exam Constitutional: WD/WN, vitals as above Eyes: PERRL, conjunctivae normal, anicteric sclerae ENMT: external ear and nose normal, oropharynx normal Neck: trachea midline, no thyromegaly Respiratory: normal respiratory effort, lungs clear to auscultation Cardiovascular: RRR, no murmur, no edema Gastrointestinal (Abdomen): normal bowel sounds, soft, nontender, no hepatosplenomegaly Skin: no rashes, warm and dry Neurologic: moves all extremities and awake; not confused Psychiatric: A+Ox3, euthymic affect Genitourinary: no CVA tenderness Results & Data Results & Data ([facility]) Vital Signs (Past 12 Hours) Vital Signs Temp Pulse Pulse Pulse Resp BP BP 03/13/22 07:30 36.8 C 71 18 150/76 H 03/13/22 03:45 75 28 H 03/13/22 01:26 71 30 H 03/12/22 23:55 37.6 C H 86 20 126/64 03/12/22 22:50 82 20 180/84 H 04/18/22 22:00 86 22 134/78 04/18/22 21:48 86 20 151/78 H 03/12/22 21:00 81 19 157/74 H Pulse Ox 03/13/22 07:30 98 03/13/22 03:45 92 03/13/22 01:26 91 03/12/22 23:55 93 03/12/22 22:50 92 03/12/22 22:00 94 03/12/22 21:48 93 03/12/22 21:00 93 PG Care Time/CCT Total # of Minutes Spent Total Time Spent with Patient: Total time spent is greater than 50% in coordination of care (as documented) at patient's floor/unit and/or counseling patient: Coding Level of Care Code 25473 Subseq Hosp Care Lvl 2 Diagnoses Nausea vomiting and diarrhea R11.2; R19.7 Fall W19.XXXA Generalized weakness R53.1 Rheumatoid arthritis M06.9 COPD (chronic obstructive pulmonary disease) J44.9 Alzheimer's disease G30.9; F02.80 CKD (chronic kidney disease) N18.9 Depression F32.9 Essential hypertension I10 GERD without esophagitis K21.9 Hyperlipidemia E78.5 Obstructive sleep apnea G47.33 CAD (coronary artery disease) I25.10 Type 2 diabetes mellitus E11.9 Dysphagia R13.10
[2022-03-13] MEDS ORDERED: NON-FORMULARY MEDICATION (Omeprazole 20 mg capsule,delayed release(DR/EC)) PO SCH (09:00)
[2022-03-13] MEDS: OXcarbazepine 150 MG TABLET PO SCH (09:33)
[2022-03-13] MEDS: LORATADINE 10 MG TAB PO SCH (09:34)
[2022-03-13] MEDS: FUROSEMIDE 20 MG TAB PO SCH (09:34)
[2022-03-13] MEDS: ATORVASTATIN 40 MG TAB PO SCH (09:34)
[2022-03-13] MEDS: INSULIN GLARGINE SOLOSTAR 100 UNITS/ML 3 ML PEN SC SCH ×2 (09:34→20:44)
[2022-03-13] MEDS: predniSONE 5 MG TAB PO SCH (09:34)
[2022-03-13] MEDS: ESCITALOPRAM OXALATE 20 MG TAB PO SCH (09:34)
[2022-03-13] MEDS: MEMANTINE HCL 5 MG TAB PO SCH ×2 (09:34→20:34)
[2022-03-13] MEDS: ASPIRIN 81 MG ECTAB PO SCH (09:34)
[2022-03-13] MEDS: INSULIN ASPART PER UNIT SC SCH ×4 (09:34→20:44)
[2022-03-13] MEDS: UMECLIDINIUM BROMIDE 62.5MCG/BLISTER 7 PUFFS/INHALER INH SCH (09:36)
--- NOTE | 2022-03-13 14:16 | Electrocardiogram Report ---
Test Reason : Blood Pressure : / mmHG Vent. Rate : 087 BPM Atrial Rate : 087 BPM P-R Int : 152 ms QRS Dur : 070 ms QT Int : 388 ms P-R-T Axes : -22 042 070 degrees QTc Int : 466 ms Normal sinus rhythm Low voltage QRS Abnormal ECG When compared with ECG of 06-JUL-2021 17:41, No significant change was found Confirmed by Steven Chester ([id number]) on 03/13/2022 2:15:51 PM Referred By: REFERRED SELF Confirmed By:Refugio Chester
--- NOTE | 2022-03-13 14:54 | XRay Report ---
KUB HISTORY: abdominal distention COMPARISON: Abdomen and pelvis CT 03/12/2022. FINDINGS: The bowel gas pattern is unremarkable. There are no dilated loops of small bowel to suggest an obstruction. No renal calculi. No ureteral calculi. No pneumoperitoneum or pneumatosis. IMPRESSION: No evidence for bowel obstruction. ACT 112: Negative or not required by law. Electronically signed by: Lew Delgado M.D. 03/13/2022 2:53 PM
[2022-03-13] MEDS: MONTELUKAST SODIUM 10 MG TABLET PO SCH (20:34)
[2022-03-13] MEDS: PANTOprazole 40 MG TAB PO SCH (20:34)
[2022-03-13] MEDS: rOPINIRole HCL 0.25 MG TABLET PO SCH (20:34)
[2022-03-13] MEDS: HYDROXYCHLOROQUINE SULFATE 200 MG TAB PO SCH (20:34)
[2022-03-13] MEDS: CLOPIDOGREL BISULFATE 75 MG TAB PO SCH (20:34)
[2022-03-14] MEDS ORDERED: INSULIN ASPART PER UNIT SC SCH (06:00)
[2022-03-14] MEDS ORDERED: Nursing to Pharmacy Communication SCH ×2 (07:00→10:15)
--- NOTE | 2022-03-14 09:43 | Fluoroscopy Report ---
FL barium swallow CLINICAL HISTORY: 76 years-old Male with h/o esophageal dyfunction; dysphagia. TECHNIQUE: Barium contrast and effervescent crystals were administered to the patient under fluorosco pic examination. Barium tablet also administered. Multiple images were obtained and submitted for rev iew. FLUOROSCOPY TIME: 2.4 minutes COMPARISON: CT abdomen and pelvis 03/12/2022 FINDINGS: Cardiac megaly with aortic valvular endograft. During deglutition, contrast material flowed freely th rough the cervical esophagus. No filling defect or mucosal abnormality is identified. No abnormal s tricturing or mass effect is seen. The mid to distal esophagus is well coated and distended. No abn ormal stricturing or mucosal abnormality is identified. No significant reflux or hiatal hernia was d emonstrated during the exam. The GE junction is normal in appearance. The barium tablet passed freel y from the esophagus into the stomach. Minimal tertiary contractions of the mid to distal esophagus. IMPRESSION: Minimal esophageal dysmotility with otherwise unremarkable exam. ACT 112: Negative or not required by law. The above report was generated using voice recognition software. It may contain grammatical, syntax o r spelling errors. Electronically signed by: Hesham Atkinson M.D. 03/14/2022 9:41 AM
[2022-03-14] MEDS: FUROSEMIDE 20 MG TAB PO SCH (09:50)
[2022-03-14] MEDS: LORATADINE 10 MG TAB PO SCH (09:50)
[2022-03-14] MEDS: predniSONE 5 MG TAB PO SCH (09:50)
[2022-03-14] MEDS: OXcarbazepine 150 MG TABLET PO SCH (09:50)
[2022-03-14] MEDS: MEMANTINE HCL 5 MG TAB PO SCH ×2 (09:50→20:33)
[2022-03-14] MEDS: INSULIN GLARGINE SOLOSTAR 100 UNITS/ML 3 ML PEN SC SCH ×2 (09:50→20:43)
[2022-03-14] MEDS: UMECLIDINIUM BROMIDE 62.5MCG/BLISTER 7 PUFFS/INHALER INH SCH (09:50)
[2022-03-14] MEDS: ATORVASTATIN 40 MG TAB PO SCH (09:51)
[2022-03-14] MEDS: ASPIRIN 81 MG ECTAB PO SCH (09:51)
[2022-03-14] MEDS: ESCITALOPRAM OXALATE 20 MG TAB PO SCH (09:51)
--- NOTE | 2022-03-14 10:20 | XRay Report ---
XR lumbar spine min 4V routine CLINICAL HISTORY: L2 central spine pain following fall ?# COMPARISON STUDY: Abdomen and pelvis CT 03/12/2022. FINDINGS: Minimal levoscoliosis of the lumbar spine which may be positional. [id number] facet d egenerative changes throughout the lumbar spine most pronounced at the L4-5 and L5-S1 levels. No frac tures within the lumbar spine. The visualized sacrum is intact. Severe disc space narrowing with fusi on of the L5-S1 vertebral bodies. Mild disc space narrowing throughout the remaining lumbar spine. No subluxation. Vascular calcifications are noted. IMPRESSION: 1. No acute fracture or subluxation within the lumbar spine. 2. Degenerative changes as described above. ACT 112: Negative or not required by law. Electronically signed by: Lew Delgado M.D. 03/14/2022 10:17 AM
[2022-03-14] MEDS: INSULIN ASPART PER UNIT SC SCH ×3 (12:37→20:45)
[2022-03-14] MEDS: METOPROLOL TARTRATE 100 MG TAB PO SCH ×2 (12:38→23:49)
--- NOTE | 2022-03-14 17:53 | Hospitalist Progress Note ---
Date of Service March 14, 2022 Assessment & Plan (1) Nausea vomiting and diarrhea: Plan: 76yo male with multiple medical comorbidities presenting with one day of nausea, vomiting, diarrhea. Patient with electrolyte abnormality to include hypocalcemia and hypomagnesemia as well as elevated lactic acid in the ER. Possibly secondary to acute n/v/d as well as poor dietary intake. Symptoms have seemingly resolved at this time. Patient reports diarrhea is more of a chronic problem Will take Mg level in AM to see if he needs ongoing magnesium supplementation (2) Fall: Plan: Patient with fall at home trying to get to the toilet. Head trauma - hematoma over left eye. CT head - no acute pathology. No focal deficits. No loss of consciousness -Back pain - no # on CT A/P and lumbar XR -CK - WNL -PT/OT evals - [facility] ([facility]) Generalized weakness: Plan: Possibly secondary to acute illness + deconditioning -No infective etiology seen -PT/OT evaluation -B12 level previously normal, no need to repeat this. -Suspect more chronic than acute. (4) Rheumatoid arthritis: Plan: Chronic. RA involving multiple sites. Patient follows with Rheumatology -Continue Hydroxychloroquine 400mg po qHS -Continue Prednisone 5mg po daily -Continue Methotrexate 15mg po weekly (5) COPD (chronic obstructive pulmonary disease): Plan: Chronic. Adequate oxygenation on room air. Patient follows with Pulmonary - last seen on 08/28/21. -Continue Incruse Ellipta (6) Alzheimer's disease: Plan: Chronic. Patient follows with Neurology. Last seen on 12/05/21 -Continue memantine 5mg po BID -Continue Oxcarbazepine for agitation -Frequent orientation, delirium prevention strategies (7) CKD (chronic kidney disease): Plan: BUN and Cr near baseline -Monitor renal function and electrolytes -Avoid nephrotoxic agents (8) Depression: Plan: Chronic. Stable on medications -Continue Escitalopram 20mg po daily (9) Essential hypertension: Plan: Chronic. Stable -Continue Metoprolol 100mg po BID -Continue to monitor (10) GERD without esophagitis: Plan: Chronic. Stable on medications -Continue Protonix 40mg po daily (11) Hyperlipidemia: Plan: Chronic -Continue Atorvastatin (12) Obstructive sleep apnea: Plan: -CPAP 8cmH2O qHS (13) CAD (coronary artery disease): Plan: Chronic -Continue ASA 81mg po daily -Continue Plavix 75mg po daily -Continue Atorvastatin (14) Type 2 diabetes mellitus: Plan: Fairly well controlled - last TnkG1C=8.3 on 08/28/21. Patient on oral agents - Metformin and Glimepiride -Hold oral agents -Lantus 5u BID -ISS -Goal blood sugar 100 -140 (15) Dysphagia: Plan: SLT assessment Plan: Ppx - SCDs Code - Full per discussion with patient and daughter on admission Dispo - Admit to med/surg, medically stable for discharge, planning on transport to [facility] tomorrow Admission and Anticipated Discharge Date Admission Date: March 12, 2022 Subjective Doing well. Barium swallow with mild dysmotility. No coughing noted by patient or his after eating today. Planning on discharge to [facility] for rehab tomorrow. Back pain improving. Review of Systems Review of Systems: All systems reviewed & are unremarkable except as noted in Subjective Physical Exam Constitutional: WD/WN, vitals as above Respiratory: normal respiratory effort, lungs clear to auscultation Cardiovascular: RRR, no murmur, no edema Gastrointestinal (Abdomen): normal bowel sounds, soft, nontender, no hepatosplenomegaly Skin: no rashes, warm and dry Neurologic: moves all extremities and awake; not confused Psychiatric: A+Ox3, euthymic affect Results & Data Results & Data ([facility]) Vital Signs (Past 12 Hours) Vital Signs Temp Pulse Resp BP Pulse Ox 03/14/22 15:38 36.7 C 71 18 156/88 H 96 03/14/22 07:42 36.8 C 68 19 127/74 93 PG Care Time/CCT Total # of Minutes Spent Total Time Spent with Patient: Total time spent is greater than 50% in coordination of care (as documented) at patient's floor/unit and/or counseling patient: Coding Level of Care Code 79721 Subseq Hosp Care Lvl 1 Diagnoses Nausea vomiting and diarrhea R11.2; R19.7 Fall W19.XXXA Generalized weakness R53.1 Rheumatoid arthritis M06.9 COPD (chronic obstructive pulmonary disease) J44.9 Alzheimer's disease G30.9; F02.80 CKD (chronic kidney disease) N18.9 Depression F32.9 Essential hypertension I10 GERD without esophagitis K21.9 Hyperlipidemia E78.5 Obstructive sleep apnea G47.33 CAD (coronary artery disease) I25.10 Type 2 diabetes mellitus E11.9 Dysphagia R13.10
[2022-03-14] MEDS: MONTELUKAST SODIUM 10 MG TABLET PO SCH (20:33)
[2022-03-14] MEDS: CLOPIDOGREL BISULFATE 75 MG TAB PO SCH (20:33)
[2022-03-14] MEDS: rOPINIRole HCL 0.25 MG TABLET PO SCH (20:33)
[2022-03-14] MEDS: HYDROXYCHLOROQUINE SULFATE 200 MG TAB PO SCH (20:33)
[2022-03-14] MEDS: PANTOprazole 40 MG TAB PO SCH (20:33)
[2022-03-15] MEDS: predniSONE 5 MG TAB PO SCH (08:58)
[2022-03-15] MEDS: OXcarbazepine 150 MG TABLET PO SCH (08:58)
[2022-03-15] MEDS: UMECLIDINIUM BROMIDE 62.5MCG/BLISTER 7 PUFFS/INHALER INH SCH (08:58)
[2022-03-15] MEDS: MEMANTINE HCL 5 MG TAB PO SCH ×2 (08:58→20:34)
[2022-03-15] MEDS: FUROSEMIDE 20 MG TAB PO SCH (08:59)
[2022-03-15] MEDS: LORATADINE 10 MG TAB PO SCH (08:59)
[2022-03-15] MEDS: ESCITALOPRAM OXALATE 20 MG TAB PO SCH (08:59)
[2022-03-15] MEDS: ATORVASTATIN 40 MG TAB PO SCH (08:59)
[2022-03-15] MEDS: ASPIRIN 81 MG ECTAB PO SCH (08:59)
[2022-03-15] MEDS: INSULIN GLARGINE SOLOSTAR 100 UNITS/ML 3 ML PEN SC SCH ×2 (09:02→20:39)
[2022-03-15] MEDS: INSULIN ASPART PER UNIT SC SCH ×4 (09:03→20:40)
[2022-03-15 09:12] LABS: Calcium 8.7 mg/dl (8.5-10.1); Creatinine Clr Calc Pharmacy 70.6 ml/min; Est GFR (African American) 77.7 ml/min; Est GFR (Non-African American) 67.1 ml/min; Magnesium 1.7 mg/dl (1.7-2.4); Potassium 3.9 mmol/L (3.5-5.1)
[2022-03-15] MEDS: METOPROLOL TARTRATE 100 MG TAB PO SCH ×2 (11:36→20:31)
[2022-03-15] MEDS: rOPINIRole HCL 0.25 MG TABLET PO SCH (20:31)
[2022-03-15] MEDS: MONTELUKAST SODIUM 10 MG TABLET PO SCH (20:31)
[2022-03-15] MEDS: PANTOprazole 40 MG TAB PO SCH (20:31)
[2022-03-15] MEDS: CLOPIDOGREL BISULFATE 75 MG TAB PO SCH (20:34)
[2022-03-15] MEDS: HYDROXYCHLOROQUINE SULFATE 200 MG TAB PO SCH (20:34)
--- NOTE | 2022-03-15 20:39 | Hospitalist Progress Note ---
Date of Service March 15, 2022 Assessment & Plan (1) Nausea vomiting and diarrhea: Plan: 76yo male with multiple medical comorbidities presenting with one day of nausea, vomiting, diarrhea. Patient with electrolyte abnormality to include hypocalcemia and hypomagnesemia as well as elevated lactic acid in the ER. Possibly secondary to acute n/v/d as well as poor dietary intake. Symptoms have seemingly resolved at this time. Patient reports diarrhea is more of a chronic problem mag is normal. (2) Fall: Plan: Patient with fall at home trying to get to the toilet. Head trauma - hematoma over left eye. CT head - no acute pathology. No focal deficits. No loss of consciousness -Back pain - no # on CT A/P and lumbar XR -CK - WNL -PT/OT evals - planning on [facility]c [facility] (3) Generalized weakness: Plan: Possibly secondary to acute illness + deconditioning -No infective etiology seen -PT/OT evaluation -B12 level previously normal, no need to repeat this. -Suspect more chronic than acute. (4) Rheumatoid arthritis: Plan: Chronic. RA involving multiple sites. Patient follows with Rheumatology -Continue Hydroxychloroquine 400mg po qHS -Continue Prednisone 5mg po daily -Continue Methotrexate 15mg po weekly (5) COPD (chronic obstructive pulmonary disease): Plan: Chronic. Adequate oxygenation on room air. Patient follows with Pulmonary - last seen on 08/28/21. -Continue Incruse Ellipta (6) Alzheimer's disease: Plan: Chronic. Patient follows with Neurology. Last seen on 12/05/21 -Continue memantine 5mg po BID -Continue Oxcarbazepine for agitation -Frequent orientation, delirium prevention strategies (7) CKD (chronic kidney disease): Plan: BUN and Cr near baseline -Monitor renal function and electrolytes -Avoid nephrotoxic agents (8) Depression: Plan: Chronic. Stable on medications -Continue Escitalopram 20mg po daily (9) Essential hypertension: Plan: Chronic. Stable -Continue Metoprolol 100mg po BID -Continue to monitor (10) GERD without esophagitis: Plan: Chronic. Stable on medications -Continue Protonix 40mg po daily (11) Hyperlipidemia: Plan: Chronic -Continue Atorvastatin (12) Obstructive sleep apnea: Plan: -CPAP 8cmH2O qHS (13) CAD (coronary artery disease): Plan: Chronic -Continue ASA 81mg po daily -Continue Plavix 75mg po daily -Continue Atorvastatin (14) Type 2 diabetes mellitus: Plan: Fairly well controlled - last YfyC7A=5.3 on 08/28/21. Patient on oral agents - Metformin and Glimepiride -Hold oral agents -Lantus 5u BID -ISS -Goal blood sugar 100 -140 (15) Dysphagia: Plan: SLT assessment Plan: Ppx - SCDs Code - Full per discussion with patient and daughter on admission Dispo - Admit to med/surg, medically stable for discharge, planning on transport to [facility] tomorrow Admission and Anticipated Discharge Date Admission Date: March 12, 2022 Subjective Patient reports no new symptoms. Review of Systems Review of Systems: All systems reviewed & are unremarkable except as noted in HPI & below Physical Exam Physical Exam: Constitutional:I WD/WN, vitals as a nayeli Respiratory: normal respiratory effort, lungs edmundo ar to auscultation Cardiovascular:I RRR, no murmur, no edema Gastrointestinal ( Abdomen): normal bowel sound s, soft, nontender , no hepatosplenom egaly Skin: no rashes, warm an d dry Neurologic: moves all extremit ies and awake; not confused Psychiatric: A+Ox3, euthymic af fect Results & Data Results & Data ([facility]) Vital Signs (Past 12 Hours) Vital Signs Temp Pulse Resp BP Pulse Ox 03/15/22 15:10 36.6 C 59 L 18 108/70 93 03/15/22 11:35 62 92 H 133/69 PG Care Time/CCT Total # of Minutes Spent Total Time Spent with Patient: Total time spent is greater than 50% in coordination of care (as documented) at patient's floor/unit and/or counseling patient: Coding Level of Care Code 31336 Subseq Hosp Care Lvl 2 Diagnoses Nausea vomiting and diarrhea R11.2; R19.7 Fall W19.XXXA Generalized weakness R53.1 Rheumatoid arthritis M06.9 COPD (chronic obstructive pulmonary disease) J44.9 Alzheimer's disease G30.9; F02.80 CKD (chronic kidney disease) N18.9 Depression F32.9 Essential hypertension I10 GERD without esophagitis K21.9 Hyperlipidemia E78.5 Obstructive sleep apnea G47.33 CAD (coronary artery disease) I25.10 Type 2 diabetes mellitus E11.9 Dysphagia R13.10 Time Spent (min) 25 Comment chart review
[2022-03-16] MEDS: INSULIN ASPART PER UNIT SC SCH ×2 (09:18→13:12)
[2022-03-16] MEDS: MEMANTINE HCL 5 MG TAB PO SCH (09:18)
[2022-03-16] MEDS: OXcarbazepine 150 MG TABLET PO SCH (09:18)
[2022-03-16] MEDS: ASPIRIN 81 MG ECTAB PO SCH (09:19)
[2022-03-16] MEDS: predniSONE 5 MG TAB PO SCH (09:19)
[2022-03-16] MEDS: UMECLIDINIUM BROMIDE 62.5MCG/BLISTER 7 PUFFS/INHALER INH SCH (09:19)
[2022-03-16] MEDS: FUROSEMIDE 20 MG TAB PO SCH (09:19)
[2022-03-16] MEDS: ESCITALOPRAM OXALATE 20 MG TAB PO SCH (09:19)
[2022-03-16] MEDS: LORATADINE 10 MG TAB PO SCH (09:19)
[2022-03-16] MEDS: ATORVASTATIN 40 MG TAB PO SCH (09:19)
[2022-03-16] MEDS: INSULIN GLARGINE SOLOSTAR 100 UNITS/ML 3 ML PEN SC SCH (09:20)
[2022-03-16] MEDS: METOPROLOL TARTRATE 100 MG TAB PO SCH (09:28)
--- NOTE | 2022-03-16 12:45 | Discharge Summary ---
Date of Service March 16, 2022 Admission HPI Per Admitting Provider Kodi Arevalo is a 76yo C male with history of dementia, COPD, CKD, HTN, HLP, RA on immunosuppressive therapy, DM presenting from home after a fall in the bathroom. Patient with underlying dementia - does not recollect the events prior to arrival to the ER. History obtained mainly through chart review and discussion with daughter at bedside. Patient slept in late today and came downstairs around 13:00. He reported fe eling weak and unsteady on his feet. He had multiple episodes of non-bloody vomiting as well as watery diarrhea. He was trying to get to the toilet when he fell and became wedged between the toilet and the wall. He struck the left side of his head. Did not reportedly lose consciousness. He was unable to get up by himself and his had to help him up. The daughter thinks he was on the floor approximately 1 hour before getting up. Patient denies fever, chills, chest pain, cough, SOB, abdominal pain. He has no additional complaints at this time. Last episode of vomiting and diarrhea was prior to arrival. ER Course: NSS x 1.5L, Zosyn, Magnesium x 1gm Principal Diagnosis N/V diarrhea Discharge Exam Constitutional: WD/WN, vitals as above Respiratory: normal respiratory effort, lungs clear to auscultation Cardiovascular: RRR, no murmur, no edema Gastrointestinal (Abdomen): normal bowel sounds, soft, nontender, no hepatosplenomegaly Skin: no rashes, warm and dry Neurologic: moves all extremities and awake; not confused Psychiatric: A+Ox3, euthymic affect Discharge Data Allergies Allergy/AdvReac Type Severity Reaction Status Date / Time auranofin Allergy Severe SHORTNESS Verified 03/12/22 19:44 OF BREATH Gold Salts Allergy Unknown HIVES TO Verified 03/12/22 19:44 GOLD SHOTS Consultations 03/12/22 21:26 ED Decision to Admit Stat Ordered Studies 03/12/22 18:12 CT head/brain wo con Stat 03/12/22 18:14 CT abd pelvis IV con only Stat 03/14/22 09:30 FL barium swallow Routine Hospital Course (1) Nausea vomiting and diarrhea: 76yo male with multiple medical comorbidities presenting with one day of nausea, vomiting, diarrhea. Patient with electrolyte abnormality to include hypocalcemia and hypomagnesemia as well as elevated lactic acid in the ER. Possibly secondary to acute n/v/d as well as poor dietary intake. Symptoms have seemingly resolved at this time. Patient reports diarrhea is more of a chronic problem mag is normal. (2) Fall: Patient with fall at home trying to get to the toilet. Head trauma - hematoma over left eye. CT head - no acute pathology. No focal deficits. No lo ss of consciousness -Back pain - no # on CT A/P and lumbar XR -CK - WNL -PT/OT evals - [facility] (3) Generalized weakness: Possibly secondary to acute illness + deconditioning -No infective etiology seen -PT/OT evaluation -B12 level previously normal, no need to repeat this. -Suspect more chronic than acute. (4) Rheumatoid arthritis: Chronic. RA involving multiple sites. Patient follows with Rheumatology -Continue Hydroxychloroquine 400mg po qHS -Continue Prednisone 5mg po daily -Continue Methotrexate 15mg po weekly (5) COPD (chronic obstructive pulmonary disease): Chronic. Adequate oxygenation on room air. Patient follows with Pulmonary - last seen on 08/28/21. -Continue Incruse Ellipta (6) Alzheimer's disease: Chronic. Patient follows with Neurology. Last seen on 12/05/21 -Continue memantine 5mg po BID -Continue Oxcarbazepine for agitation -Frequent orientation, delirium prevention strategies (7) CKD (chronic kidney disease): BUN and Cr near baseline -Monitor renal function and electrolytes -Avoid nephrotoxic agents (8) Depression: Chronic. Stable on medications -Continue Escitalopram 20mg po daily (9) Essential hypertension: Chronic. Stable -Continue Metoprolol 100mg po BID -Continue to monitor (10) GERD without esophagitis: Chronic. Stable on medications -Continue Protonix 40mg po daily (11) Hyperlipidemia: Chronic -Continue Atorvastatin (12) Obstructive sleep apnea: -CPAP 8cmH2O qHS (13) CAD (coronary artery disease): Chronic -Continue ASA 81mg po daily -Continue Plavix 75mg po daily -Continue Atorvastatin (14) Type 2 diabetes mellitus: Fairly well controlled - last AsbM9Z=1.3 on 08/28/21. Patient on oral agents - Metformin and Glimepiride -Hold oral agents -Lantus 5u BID -ISS -Goal blood sugar 100 -140 (15) Dysphagia: SLT assessment Ppx - SCDs Code - Full per discussion with patient and daughter on admission Dispo - Admit to med/surg, medically stable for discharge, planning on transport to [facility] tomorrow Total Time Total Time Spent Total Time Spent (In Minutes): 40 Discharge Plan Discharge Items Patient Disposition: Home - Home Health Services Reason For Visit: FALL, NAUSEA, VOMITING, DIAHERRA Discharge Diagnosis: fall, nausea Activity: Resume your previous activity Non-emergency contact: Primary Care Provider Call non-emergency contact if: you have any medication questions Follow-up/Referrals: Oscar Sullivan DO [Primary Care Provider] - 03/23/22 10:20 am Diet: Carb Consistent or DM2 and Heart Healthy Addtl Attending Provider Instructions: You have been hospitalized for an acute medical problem. During your stay at [facility], we have made an effort to correct the problem that brought you to the hospital while keeping you as comfortable as possible. Medications were used to bring your condition under control and your discharge instructions will include directions for any medications you should take after leaving the hospital. Please make sure you see your Primary Care Provider as part of your follow up plan. Recommend followup with PCP in 1 week and recheck blood work. will send script for long acting metformin. Regular metformin may worsen diarrhea. For 1 week, take only once a day, then take it twice a day on a full stomach. Pending Studies at Discharge: No Stand-Alone Forms: My [facility] [address], Smoking Cessation Medications and DC Order Prescriptions: New metformin 1,000 mg tablet extended release 24hr 1,000 mg PO BID Qty: 60 RF: 0 Continued glimepiride 1 mg tablet 1 mg PO BID Qty: 180 RF: 1 escitalopram oxalate 20 mg tablet 20 mg PO DAILY 90 Days Qty: 90 RF: 1 oxcarbazepine 300 mg tablet 300 mg PO DAILY Qty: 90 RF: 1 pantoprazole 40 mg tablet,delayed release (DR/EC) 40 mg PO QPM Qty: 90 RF: 1 clopidogrel 75 mg tablet 75 mg PO QPM Qty: 90 RF: 1 furosemide 20 mg tablet 20 mg PO QAM Qty: 90 RF: 1 ropinirole 0.5 mg tablet 0.75 mg PO HS Qty: 135 RF: 1 memantine 5 mg tablet 5 mg PO BID Qty: 180 RF: 0 omeprazole 20 mg capsule,delayed release(DR/EC) 20 mg PO QAM Qty: 90 RF: 0 aspirin 81 mg tablet,delayed release (DR/EC) 81 mg PO QAM Qty: 90 RF: 0 loratadine 10 mg tablet 10 mg PO QAM Qty: 90 RF: 0 magnesium oxide 400 mg (241.3 mg magnesium) tablet 400 mg PO QAM RF: 0 hydroxychloroquine 200 mg tablet 400 mg PO HS Qty: 60 RF: 0 multivitamin [Multiple Vitamins] tablet 1 tab PO QAM RF: 0 metoprolol tartrate 100 mg tablet 100 mg PO Q12H Qty: 180 RF: 3 nitroglycerin 0.4 mg tablet, sublingual 0.4 mg SL Q5M PRN (Reason: chest pain) Qty: 25 RF: 3 (DME) CPAP Supplies Misc See Rx Instructions .MEDSUPPLY Qty: 1 RF: 0 albuterol sulfate 90 mcg/actuation HFA aerosol inhaler 2 inh inhalation Q6H PRN (Reason: shortness of breath or wheezing) Qty: 18 RF: 5 Incruse Ellipta 62.5 mcg/actuation blister with device 1 inh inhalation QAM Qty: 30 RF: 5 albuterol sulfate 2.5 mg /3 mL (0.083 %) solution for nebulization 2.5 mg inhalation Q4H PRN (Reason: COPD) Qty: 180 RF: 5 cyanocobalamin (vitamin B-12) 1,000 mcg Tablet 1,000 mcg PO BID RF: 0 cholecalciferol (vitamin D3) [Vitamin D3] 25 mcg (1,000 unit) Capsule 25 mcg PO BID RF: 0 potassium gluconate 595 mg (99 mg) Tablet 595 mg PO QAM RF: 0 ascorbic acid (vitamin C) 100 mg tablet 100 mg PO QAM RF: 0 Probiotic 3 billion cell capsule 3,000 mmu cells PO QAM RF: 0 prednisone 5 mg tablet 5 mg PO QAM RF: 0 methotrexate sodium 2.5 mg tablet 15 mg PO WK RF: 0 atorvastatin 40 mg tablet 40 mg PO QAM RF: 0 montelukast 10 mg tablet 10 mg PO QPM RF: 0 folic acid 1 mg tablet 1 mg PO DAILY RF: 0 Discontinued amoxicillin 500 mg tablet 2,000 mg PO ONCE Qty: 4 RF: 3 metformin 1,000 mg tablet 1,000 mg PO BID RF: 0 Discharge Orders: Discharge Order (Routine); Ordered 03/16/22 Ordered By: Ellis Aleman Admission Data Admit Date/Time: 03/12/22 22:23 Attending Provider: Ellis Aleman Admit Provider: Bailey Guzman Primary Care Provider: Oscar Sullivan Other Providers: Bailey Guzman ; Amrik Herrmann [facility] ; [facility] Other Interventions: Discharge Summary Assessment (RN) Last Done: 03/16/22 15:04 Coding Level of Care Code D/C DAY MANAGEMENT >30 MINS Diagnoses Nausea vomiting and diarrhea R11.2; R19.7 Fall W19.XXXA Generalized weakness R53.1 Rheumatoid arthritis M06.9 COPD (chronic obstructive pulmonary disease) J44.9 Alzheimer's disease G30.9; F02.80 CKD (chronic kidney disease) N18.9 Depression F32.9 Essential hypertension I10 GERD without esophagitis K21.9 Hyperlipidemia E78.5 Obstructive sleep apnea G47.33 CAD (coronary artery disease) I25.10 Type 2 diabetes mellitus E11.9 Dysphagia R13.10
[2022-03-19] MEDS ORDERED: metHOTREXate sodium 2.5 MG TAB PO SCH (09:00)
--- NOTE | 2022-03-22 10:07 | Coding Query ---
CODING QUERY To promote full compliance with coding requirements relating to patient care, provider participation is requested in all cases of egg worker uncertainty. Please assist us with the question(s) below: Coding Question(s): Please specify below, in your clinical opinion, the diagnosis most responsible for the inpatient admission. ( ) Nausea and Vomiting. Please specify further below, in your clinical opinion, to specify the most likely cause: ( ) Unspecified likely cause ( X) Other likely cause: Please Specify__POSSIBLE VIRAL GASTROENTERITIS ( ) Diarrhea. Please specify further below, in your clinical opinion, to specify the most likely cause: ( ) Unspecified likely cause ( ) Chronic Diarrhea with unspecified likely cause ( X ) Chronic Diarrhea possibly caused by medication Metformin ( ) Other likely cause: Please Specify ( ) Electrolyte abnormality to include Hypocalcemia and Hypomagnesemia as well as elevated lactic acid ( ) Fall with the recent fall and the reason for the fall was being investigated. ( ) Other: Please Specify Physician's Response(s): Thank you Sushma Richards Principal Diagnosis: "that condition established after study, to be chiefly responsible for occasioning the admission of the patient to the hospital for care." Co-Existing Principal Diagnosis: "when two or more diagnoses equally meet the criteria for principal diagnosis as determined by the circumstances of admission, diagnostic work up, and/or therapy provided, and the Alphabetic Index, Tabular List, or another coding guideline does not provide sequencing direction, any one of the diagnoses may be sequenced first." "When the physician has documented what appears to be a current diagnosis in the body of the record, but has not included the diagnosis in the final diagnostic statement, the physician should be asked whether the diagnosis should be added." ([facility] 2 QTR90. p3-4) NEFTALY
--- NOTE | 2022-03-22 10:10 | Coding Query ---
To promote full compliance with coding requirements relating to patient care, provider participation is requested in all cases of computer language coder uncertainty. Please assist us with the question(s) below: Coding Question(s): The diagnosis below was documented in the ER, then subsequently fell off all further documentation. Please indicate if it is still a possible diagnosis or ruled out. Physician's Response(s): Congestive Heart Failure - (the ER documents, "He does have a complicated past medical history including congestive heart failure". ( ) Diagnosed and POA and managed by chronic medication ( ) Diagnosed and not POA ( X ) Ruled out ( ) Other (please specify) MTDD
== END 2022-03-16 16:06 | disposition home health service (06) | DRG 392 ==
LOC: ED 17:54 → SUATTDRO 22:23 → 3N 22:23

== ENCOUNTER 2023-03-29 08:48 | Observation (INO) ==
--- NOTE | 2023-02-20 14:09 | PAT Medication Instructions ---
Medication Instructions Date of Service February 20, 2023 Home Medications Medication Instructions Recorded CPAP Supplies #1 ea 03/16/21 glimepiride 1 mg tablet 1 mg PO BID #180 tabs 03/29/21 nitroglycerin 0.4 mg sublingual 0.4 mg sublingual Q5M PRN chest 05/10/21 tablet pain #25 tabs metoprolol tartrate 100 mg tablet 100 mg PO Q12H #180 tabs 05/09/22 metformin 1,000 mg tablet 1,000 mg PO BID #180 tabs 07/13/22 albuterol sulfate 90 mcg/actuation 2 inh inhalation Q6H PRN shortness 08/03/22 aerosol inhaler of breath or wheezing #18 grams empagliflozin 10 mg tablet 10 mg PO DAILY #30 tabs 09/17/22 (Jardiance) atorvastatin 40 mg tablet 40 mg PO QAM #90 tabs 09/21/22 escitalopram oxalate 20 mg tablet 20 mg PO DAILY Depression 90 days 09/25/22 #90 tabs memantine 10 mg tablet 10 mg PO BID 90 days #180 tabs 09/25/22 ropinirole 0.5 mg tablet 0.75 mg PO HS #135 tabs 09/25/22 lisinopril 5 mg tablet 5 mg PO DAILY #90 tabs 10/12/22 oxcarbazepine 300 mg tablet 300 mg PO DAILY #90 tabs 10/25/22 pantoprazole 40 mg tablet,delayed 40 mg PO QPM #90 tabs 12/06/22 release furosemide 20 mg tablet 20 mg PO QAM #90 tabs 01/22/23 montelukast 10 mg tablet See Rx Instructions .Route 01/22/23 .COMPLEX #90 tabs umeclidinium 62.5 mcg/actuation 1 inh inhalation QAM #30 ea 02/04/23 blister powder for inhalation (Incruse Ellipta) omeprazole 20 mg capsule,delayed release 20 mg PO QAM multivitamin (Multiple Vitamins tablet) 1 tab PO QAM aspirin 81 mg tablet,delayed release 81 mg PO QAM hydroxychloroquine 200 mg tablet 400 mg PO HS loratadine 10 mg tablet 10 mg PO QAM cholecalciferol (vitamin D3) 25 mcg (1,000 unit) capsule (Vitamin D3) 25 mcg PO BID cyanocobalamin (vitamin B-12) 1,000 mcg tablet 1,000 mcg PO BID potassium gluconate 595 mg (99 mg) tablet 595 mg PO QAM CPAP Supplies glimepiride 1 mg tablet 1 mg PO BID prednisone 5 mg tablet 5 mg PO QAM ascorbic acid (vitamin C) 100 mg tablet 100 mg PO QAM lactobacillus combination no.4 3 billion cell capsule (Probiotic) 3,000 mmu cells PO QAM nitroglycerin 0.4 mg sublingual tablet 0.4 mg sublingual Q5M PRN folic acid 1 mg tablet 1 mg PO QAM methotrexate sodium 2.5 mg tablet 15 mg PO WK magnesium oxide 400 mg (241.3 mg magnesium) tablet 400 mg PO BID metoprolol tartrate 100 mg tablet 100 mg PO Q12H metformin 1,000 mg tablet 1,000 mg PO BID albuterol sulfate 90 mcg/actuation aerosol inhaler 2 inh inhalation Q6H PRN empagliflozin 10 mg tablet (Jardiance) 10 mg PO DAILY atorvastatin 40 mg tablet 40 mg PO QAM escitalopram oxalate 20 mg tablet 20 mg PO DAILY memantine 10 mg tablet 10 mg PO BID ropinirole 0.5 mg tablet 0.75 mg PO HS lisinopril 5 mg tablet 5 mg PO DAILY oxcarbazepine 300 mg tablet 300 mg PO DAILY pantoprazole 40 mg tablet,delayed release 40 mg PO QPM furosemide 20 mg tablet 20 mg PO QAM montelukast 10 mg tablet See Rx Instructions .Route .COMPLEX umeclidinium 62.5 mcg/actuation blister powder for inhalation (Incruse Ellipta) 1 inh inhalation QAM STOP 7 days before surgery methotrexate sodium 2.5 mg tablet 15 mg PO WK STOP 3 days before surgery empagliflozin 10 mg tablet (Jardiance) 10 mg PO DAILY Continue as directed prednisone 5 mg tablet 5 mg PO QAM montelukast 10 mg tablet See Rx Instructions .Route .COMPLEX oxcarbazepine 300 mg tablet 300 mg PO DAILY escitalopram oxalate 20 mg tablet 20 mg PO DAILY nitroglycerin 0.4 mg sublingual tablet 0.4 mg sublingual Q5M PRN(if needed) ASK your prescriber and surgeon aspirin 81 mg tablet,delayed release 81 mg PO QAM hydroxychloroquine 200 mg tablet 400 mg PO HS DO NOT take the morning of surgery multivitamin (Multiple Vitamins tablet) 1 tab PO QAM lisinopril 5 mg tablet 5 mg PO DAILY loratadine 10 mg tablet 10 mg PO QAM cholecalciferol (vitamin D3) 25 mcg (1,000 unit) capsule (Vitamin D3) 25 mcg PO BID cyanocobalamin (vitamin B-12) 1,000 mcg tablet 1,000 mcg PO BID potassium gluconate 595 mg (99 mg) tablet 595 mg PO QAM glimepiride 1 mg tablet 1 mg PO BID ascorbic acid (vitamin C) 100 mg tablet 100 mg PO QAM lactobacillus combination no.4 3 billion cell capsule (Probiotic) 3,000 mmu cells PO QAM furosemide 20 mg tablet 20 mg PO QAM metformin 1,000 mg tablet 1,000 mg PO BID magnesium oxide 400 mg (241.3 mg magnesium) tablet 400 mg PO BID folic acid 1 mg tablet 1 mg PO QAM Take morning of surgery With a small sip of water, OTHERWISE NOTHING TO EAT OR DRINK AFTER MIDNIGHT: omeprazole 20 mg capsule,delayed release 20 mg PO QAM albuterol sulfate 90 mcg/actuation aerosol inhaler 2 inh inhalation Q6H PRN(use if needed; please bring with you to hospital day of surgery if possible) umeclidinium 62.5 mcg/actuation blister powder for inhalation (Incruse Ellipta) 1 inh inhalation QAM memantine 10 mg tablet 10 mg PO BID atorvastatin 40 mg tablet 40 mg PO QAM metoprolol tartrate 100 mg tablet 100 mg PO Q12H Take evening before surgery cholecalciferol (vitamin D3) 25 mcg (1,000 unit) capsule (Vitamin D3) 25 mcg PO BID cyanocobalamin (vitamin B-12) 1,000 mcg tablet 1,000 mcg PO BID glimepiride 1 mg tablet 1 mg PO BID albuterol sulfate 90 mcg/actuation aerosol inhaler 2 inh inhalation Q6H PRN(if needed) pantoprazole 40 mg tablet,delayed release 40 mg PO QPM ropinirole 0.5 mg tablet 0.75 mg PO HS memantine 10 mg tablet 10 mg PO BID metformin 1,000 mg tablet 1,000 mg PO BID metoprolol tartrate 100 mg tablet 100 mg PO Q12H magnesium oxide 400 mg (241.3 mg magnesium) tablet 400 mg PO BID Other Notes If you have any questions please call us at [phone] or [phone] or [phone] or [phone]
--- NOTE | 2023-02-26 11:03 | Anesthesiology Consultation ---
Date of Service February 26, 2023 Assessment & Plan (1) Encounter for pre-operative examination: - Check BSG AM DOS - S/P Right TKA (11/06/12): Spinal + PNB at [facility] - COVID screening: Per assessment on 02/26: No known COVID-19 positive contacts or current COVID-19 related symptoms. Travel screen negative. Patient vaccinated. At surgeon discretion if preop Covid testing being done. - Outpatient joint assessment: Pt currently scheduled for inpatient pathway. If surgeon requests review for outpatient joint pathway, patient is not recommended candidate for outpatient joint program from anesthesia standpoint. - Cardiology visit (09/19/22): "Assessment: 1. Coronary artery disease. Stable exercise tolerance and stamina. No chest pain or other anginal type pains. 2. No evidence of pulmonary vascular congestion on exam. 3. Status post TAVR. The valve function properly on exam. 4. Dyspnea with strenuous activities. This is accompanied by wheezing. Suspect his COPD as to main etiology. 5. Initially mildly elevated blood pressure. Repeat pressure taken by me improved and showing good control. 6. No bleeding complaints on antiplatelet therapy. Most recent labs with minimally reduced hemoglobin. Normal platelet count. 7. Dyslipidemia. No adverse reactions to atorvastatin. Excellent control of LDL on most recent labs. His triglyceride level is elevated. This is in the setting of diabetes mellitus. 8. No cerebrovascular or peripheral vascular complaints. Plan: 1. Continue current cardiac medications and doses." Patient scheduled for routine f/u appt prior to surgery- Patient acceptable risk for surgery pending upcoming cardiology visit note ([facility] [place], appt 03/20). Chart Review Chart Review: Patient seen in Pre Admission Testing Teaching & Discussion Pre-Anesthesia Teaching/Discussion Notes: Instructed NPO after midnight before surgery,except medications with 15 cc of water. Medication instructions provided according to the PAT guidelines. History Surgery Operation Date: 03/29/23 07:00 Proposed Procedures p LeftTotal Knee Arthroplasty - Cristopher Dempsey DO Height/Weight Height: 5 ft 7 in Weight: 98.2 kg Allergies Allergy/AdvReac Type Severity Reaction Status Date / Time auranofin Allergy Severe Dyspnea Verified 02/26/23 12:59 Gold Salts Allergy Unknown Hives Verified 02/26/23 12:59 Medications Home Medications Medication Instructions Recorded Confirmed Last Taken omeprazole 20 mg capsule,delayed 20 mg PO QAM #90 caps 07/10/19 03/31/23 05/ 11/21 11:00 release multivitamin (Multiple Vitamins 1 tab PO QAM 06/19/19 02/22/23 04/04/21 11:00 tablet) aspirin 81 mg tablet,delayed 81 mg PO QAM #90 tabs 07/09/19 02/22/23 04/04/21 11 :00 release hydroxychloroquine 200 mg tablet 400 mg PO HS #60 tabs 07/09/19 02/22/23 12/11/19 loratadine 10 mg tablet 10 mg PO QAM #90 tabs 07/09/19 02/22/23 04/04/21 11:00 cholecalciferol (vitamin D3) 25 25 mcg PO BID 12/12/19 02/22/23 12/11/19 mcg (1,000 unit) capsule (Vitamin D3) cyanocobalamin (vitamin B-12) 1,000 mcg PO BID 12/12/19 02/22/23 12/11/19 1,000 mcg tablet potassium gluconate 595 mg (99 mg) 595 mg PO QAM 12/12/19 02/22/23 04/04/21 11:00 tablet CPAP Supplies #1 ea 03/16/21 02/22/23 Unknown glimepiride 1 mg tablet 1 mg PO BID #180 tabs 03/29/21 02/22/23 Unknown prednisone 5 mg tablet 5 mg PO QAM 03/31/21 02/22/23 04/04/21 11:00 ascorbic acid (vitamin C) 100 mg 100 mg PO QAM 05/10/21 02/22/23 Unknown tablet lactobacillus combination no.4 3 3,000 mmu cells PO QAM 05/10/21 02/22/23 Unknown billion cell capsule (Probiotic) nitroglycerin 0.4 mg sublingual 0.4 mg sublingual Q5M PRN chest 05/10/21 02/22/23 Unknown tablet pain #25 tabs folic acid 1 mg tablet 1 mg PO QAM 03/12/22 02/22/23 Unknown methotrexate sodium 2.5 mg tablet 15 mg PO WK 03/12/22 02/22/23 Unknown magnesium oxide 400 mg (241.3 mg 400 mg PO BID 03/23/22 02/22/23 Unknown magnesium) tablet metoprolol tartrate 100 mg tablet 100 mg PO Q12H #180 tabs 05/09/22 02/22/23 Unknown metformin 1,000 mg tablet 1,000 mg PO BID #180 tabs 07/13/22 02/22/23 Unknown albuterol sulfate 90 mcg/actuation 2 inh inhalation Q6H PRN shortness 08/03/22 02/22/23 Unknown aerosol inhaler of breath or wheezing #18 grams empagliflozin 10 mg tablet 10 mg PO DAILY #30 tabs 09/17/22 02/22/23 Unknown (Jardiance) atorvastatin 40 mg tablet 40 mg PO QAM #90 tabs 09/21/22 02/22/23 Unknown escitalopram oxalate 20 mg tablet 20 mg PO DAILY Depression 90 days 09/25/22 02/22/23 Unknown #90 tabs memantine 10 mg tablet 10 mg PO BID 90 days #180 tabs 09/25/22 02/22/23 Unknown ropinirole 0.5 mg tablet 0.75 mg PO HS #135 tabs 09/25/22 02/22/23 Unknown lisinopril 5 mg tablet 5 mg PO DAILY #90 tabs 10/12/22 02/22/23 Unknown oxcarbazepine 300 mg tablet 300 mg PO DAILY #90 tabs 10/25/22 02/22/23 Unknown pantoprazole 40 mg tablet,delayed 40 mg PO QPM #90 tabs 12/06/22 02/22/23 Unknown release furosemide 20 mg tablet 20 mg PO QAM #90 tabs 01/22/23 02/22/23 Unknown montelukast 10 mg tablet See Rx Instructions .Route 01/22/23 02/22/23 Unknown .COMPLEX #90 tabs umeclidinium 62.5 mcg/actuation 1 inh inhalation QAM #30 ea 02/04/23 02/22/23 Unknown blister powder for inhalation (Incruse Ellipta) metoclopramide HCl 10 mg tablet 10 mg PO Q6H PRN nausea and 02/22/23 02/22/23 Unknown (Reglan) vomiting #60 tabs Past Medical History Medical History Actinic keratosis Alzheimer's disease Anxiety Aortic stenosis s/p AVR (12/2019), properly functioning bioprosthetic aortic valve per 04/[address] Dillon CAD (coronary artery disease) Stent x1 (2019) Chronic anemia Baseline hgb 12-13 range per chart review Chronic low back pain Chronic obstructive pulmonary disease Stable CKD (chronic kidney disease) Follows with Dr. Jose Melgar Essential hypertension Hiatal hernia History of congestive heart failure History of COVID-19 06/2021- fatigue, headache, hospitalized overnight Hyperlipidemia Mediastinal adenopathy Multiple pulmonary nodules monitoring Obesity Obstructive sleep apnea CPAP Osteoarthritis of knee Peptic ulcer HX Restless legs Rheumatoid arthritis Follows with Dr. Brewer Short-term memory loss Type 2 diabetes mellitus Venous insufficiency Exercise / Class Metabolic Activity III < 4 Walking/Shop/Light housework Past Family History Family History Mother Diabetes Coronary heart disease Hypertension Brother Hypertension Sister Hypertension Father Hypertension Denies family history of Ovarian cancer Prostate cancer Myocardial infarction Breast cancer Colorectal cancer Past Surgical History Surgical History H/O colonoscopy 2020 History of foot surgery CYSTS REMOVED-LEFT History of total knee arthroplasty History of total knee replacement Right TKA (11/06/12): Spinal + PNB at [facility] Hx of appendectomy S/P cardiac catheterization Stent x1 (2019) S/P TAVR (transcatheter aortic valve replacement) 2020- [facility] [place] Past Anesthesia History No Hx of Anesthesia Complications and No Family Hx of Anesthesia Complications History of PONV No Hx of PONV and No Hx of Motion Sickness Social History Smoking Status: Former smoker tobacco type: cigarettes Smoking cigarettes per day: Quit 1976 Do You Dip or Chew Tobacco: No Hx Alcohol Use: No Hx Substance Use: No substance use type: does not use Review of Systems Patient denies chest pain, shortness of breath, fever, chills, cough, wheezing, palpitations. Physical Exam Vital Signs VITALS BP 113/73 P 68 TEMP 98.2 SP02 95%RA RESP 20 PHYSICAL Mildly decreased cervical extension range of motion. Full TMJ range of motion. TMD 3.5 finger breaths Mallampati Score 2 Dentition: missing molar, + bridge (patient thinks lower left side) Lungs: mild expiratory wheezes, lower lung base crackles Cardiac: regular rate and rhythm, no murmurs noted Spine: normal Carotid arteries: negative bruit Extremities: no edema Thick neck Lab Results Anesthesia Preop Results Results Anesthesia Widget: WBC 5.39 K/ul (4.8-10.8) 02/26/23 Hgb 12.5 g/dl (14.0-18.0) L 02/26/23 Hct 37.6 % (42.0-52.0) L 02/26/23 Plt 163 K/uL (130-400) 02/26/23 Na 137 mmol/L (136-145) 02/23/23 K 4.3 mmol/L (3.5-5.1) 02/23/23 Cl 101 mmol/L (98-107) 02/23/23 CO2 27 mmol/L (21-32) 02/23/23 BUN 27 mg/dl (6-23) H 02/23/23 Creat 1.15 mg/dl (0.6-1.4) 02/23/23 Glucose Level 88 mg/dl (70-99(Fasting)) 02/23/23 PT 11.9 Seconds (9.0-12.0) 02/26/23 PTT 26.6 Seconds (21.0-31.0) 02/26/23 INR 1.1 (0.9-1.1) 02/26/23 HA1c 7.1 % (4.5-5.6) H 02/23/23 Blood Type O Positive 02/26/23 Antibody Screen NEGATIVE 02/26/23 Testing Electrocardiogram Date: 02/26/23 NSR at 69bpm. Low voltage QRS. No significant change compared to 03/12/22 per echocardiographer comparison. Chest X-Ray Date: 02/26/23 FINDINGS: Cardiac silhouette is mildly enlarged. Calcified left hilar lymph nodes. Aortic valvular endograft. No pneumothorax, pleural effusion, airspace consolidation or pulmonary edema. Degenerative changes of the shoulders and spine. Mild hyperinflation. IMPRESSION: No acute process. Echocardiogram Date: 05/24/21 Normal biventricular systolic function. EF 65-70%. LV wall motion normal. Moderate LVH. Mild left atrial dilatation. Properly functioning bioprosthetic aortic valve. No significant valvular regurgitation. Grade 1 diastolic dysfunction. Stress Test Date: 12/19/16 Type: DSE Negative DSE/stress ECG for myocardial ischemia at 89% MPHR. Rest echo- EF 55-60%. Mild cLVH. Type I DD. Moderate calcific aortic stenosis. No significant valvular disease. Subsequent AVR* Cardiac Catheterization Date: 12/14/19 Impression: Severe CAD involving mid RCA. Moderate nonobstructive CAD involving mid LAD with otherwise mild nonobstructive CAD of the proximal RCA. Previously documented severe aortic stenosis. Plan: Referral to [facility] to consider aortic valve replacement and revascularization as deemed appropriate given significant symptoms impacting quality of life. *Subsequent AVR + stent* Cervical Spine X-ray Date: 02/26/23 FINDINGS: Reversal of the cervical lordosis is noted. There is no radiographic evidence for cervical spine instability during flexion or extension. Atlantodental interval is 2.2 mm in neutral position, 2.5 mm during flexion and 1.4 mm during extension. Severe multilevel disc space narrowing is noted. There is moderate multilevel facet arthrosis. No fracture is identified. Inferior endplate of C7 is slightly obscured. IMPRESSION:No radiographic evidence for cervical spine instability during flexion or extension. Severe multilevel disc space narrowing with moderate osteophytosis. Moderate multilevel facet arthrosis. No cervical spine fracture. COVID-19 Risk Screen Screening Information COVID-19 Screen Date: 02/26/23 Exposure 21 Days Family/Household +COVID Last 21 Days: No Exposure 10 Days Any COVID Exposure Last 10 Days: No Symptoms Last 10 Days Experienced COVID Sx Last 10 Days: No + COVID 0-90 Days COVID + in Last 0-90 Days: No
--- NOTE | 2023-03-28 13:24 | History & Physical Report ---
Date of Service March 28, 2023 Assessment & Plan (1) Osteoarthritis of knee: We will proceed with a left total knee arthroplasty. Postoperatively we will start him on aspirin for DVT prophylaxis and keep him overnight in the hospital for postop medical management. He plans to use energy physical therapy upon [place]. History of Present Illness Chief Complaint: Osteoarthritis of the left knee. Primary Care Provider: Oscar Sullivan DO Mariee is a pleasant 77-year-old male, who has been dealing with chronic worsening left knee pain. X-rays and clinical examination have been diagnostic for advanced osteoarthritis of left knee. After failing conservative treatment, he has elected to proceed with a left total knee arthroplasty. . Allergies Allergy/AdvReac Type Severity Reaction Status Date / Time auranofin Allergy Severe Dyspnea Verified 03/26/23 09:00 Gold Salts Allergy Unknown Hives Verified 03/26/23 09:00 Home Medications Medication Instructions Recorded Confirmed Type multivitamin (Multiple Vitamins 1 tab PO QAM 06/19/19 03/26/23 History tablet) aspirin 81 mg tablet,delayed 81 mg PO QAM #90 tabs 07/09/19 03/26/23 History release loratadine 10 mg tablet 10 mg PO QAM #90 tabs 07/09/19 03/26/23 History cholecalciferol (vitamin D3) 25 25 mcg PO BID 12/12/19 03/26/23 History mcg (1,000 unit) capsule (Vitamin D3) cyanocobalamin (vitamin B-12) 1,000 mcg PO BID 12/12/19 03/26/23 History 1,000 mcg tablet potassium gluconate 595 mg (99 mg) 595 mg PO QAM 12/12/19 03/26/23 History tablet CPAP Supplies #1 ea 03/16/21 03/26/23 Rx prednisone 5 mg tablet 5 mg PO QAM 03/31/21 03/26/23 History ascorbic acid (vitamin C) 100 mg 100 mg PO QAM 05/10/21 03/26/23 History tablet lactobacillus combination no.4 3 3,000 mmu cells PO QAM 05/10/21 03/26/23 History billion cell capsule (Probiotic) nitroglycerin 0.4 mg sublingual 0.4 mg sublingual Q5M PRN chest 05/10/21 03/26/23 Rx tablet pain #25 tabs folic acid 1 mg tablet 1 mg PO QAM 03/12/22 03/26/23 History methotrexate sodium 2.5 mg tablet 15 mg PO WK 03/12/22 03/26/23 History magnesium oxide 400 mg (241.3 mg 400 mg PO BID 03/23/22 03/26/23 History magnesium) tablet metoprolol tartrate 100 mg tablet 100 mg PO Q12H #180 tabs 05/09/22 03/26/23 Rx metformin 1,000 mg tablet 1,000 mg PO BID #180 tabs 07/13/22 03/26/23 Rx albuterol sulfate 90 mcg/actuation 2 inh inhalation Q6H PRN shortness 08/03/22 03/26/23 Rx aerosol inhaler of breath or wheezing #18 grams escitalopram oxalate 20 mg tablet 20 mg PO DAILY Depression 90 days 09/25/22 03/26/23 Rx #90 tabs ropinirole 0.5 mg tablet 0.75 mg PO HS #135 tabs 09/25/22 03/26/23 Rx lisinopril 5 mg tablet 5 mg PO DAILY #90 tabs 10/12/22 03/26/23 Rx oxcarbazepine 300 mg tablet 300 mg PO DAILY #90 tabs 10/25/22 03/26/23 Rx furosemide 20 mg tablet 20 mg PO QAM #90 tabs 01/22/23 03/26/23 Rx montelukast 10 mg tablet See Rx Instructions .Route 01/22/23 03/26/23 Rx .COMPLEX #90 tabs umeclidinium 62.5 mcg/actuation 1 inh inhalation QAM #30 ea 02/04/23 03/26/23 Rx blister powder for inhalation (Incruse Ellipta) metoclopramide HCl 10 mg tablet 10 mg PO Q6H PRN nausea and 02/22/23 03/26/23 Rx (Reglan) vomiting #60 tabs empagliflozin 10 mg tablet 10 mg PO DAILY #30 tabs 03/20/23 03/26/23 Rx (Jardiance) pantoprazole 40 mg tablet,delayed 40 mg PO BID #180 tabs 03/20/23 03/26/23 Rx release atorvastatin 40 mg tablet 40 mg PO QAM #90 tabs 03/21/23 03/26/23 Rx memantine 10 mg tablet 10 mg PO BID 90 days #180 tabs 03/26/23 03/26/23 Rx Past Med/Surg History Medical History Actinic keratosis Alzheimer's disease Anxiety Aortic stenosis s/p AVR (12/2019), properly functioning bioprosthetic aortic valve per 04/[address] Dillon CAD (coronary artery disease) Stent x1 (2019) Chronic anemia Baseline hgb 12-13 range per chart review Chronic low back pain Chronic obstructive pulmonary disease Stable CKD (chronic kidney disease) Follows with Dr. Garcia Depression Essential hypertension Hiatal hernia History of congestive heart failure History of COVID-19 06/2021- fatigue, headache, hospitalized overnight Hyperlipidemia Mediastinal adenopathy Multiple pulmonary nodules monitoring Obesity Obstructive sleep apnea CPAP Osteoarthritis of knee Peptic ulcer HX Restless legs Rheumatoid arthritis Follows with Dr. Brewer Short-term memory loss Type 2 diabetes mellitus Venous insufficiency Surgical History H/O colonoscopy 2020 History of foot surgery CYSTS REMOVED-LEFT History of total knee arthroplasty History of total knee replacement Right TKA (11/06/12): Spinal + PNB at [facility] Hx of appendectomy S/P cardiac catheterization Stent x1 (2019) S/P TAVR (transcatheter aortic valve replacement) [place] [facility] [place] Family History Mother Diabetes Coronary heart disease Hypertension Brother Hypertension Sister Hypertension Father Hypertension Denies family history of Ovarian cancer Prostate cancer Myocardial infarction Breast cancer Colorectal cancer Social History Smoking Status: Former smoker Cigarettes Per Day: Quit 1975; Second Hand Exposure: No; Do You Dip or Chew Tobacco: No; Hx Alcohol Use: No Hx Substance Use: No Preferred Language: Swedish Communication Ability: Effective Visual Impairment: No Limitations Hearing Ability: Hard of Hearing 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 Physical Exam On physical examination of left knee, he has range of motion 0 to 120 degrees. No instability. Pain of the distal femoral condyles.. Constitutional WD/WN, vitals as above Eyes PERRL, conjunctivae normal, anicteric sclerae ENMT external ear and nose normal, oropharynx normal Neck trachea midline, no thyromegaly Respiratory normal respiratory effort, lungs clear to auscultation Cardiovascular RRR, no murmur, no edema Gastrointestinal (Abdomen) normal bowel sounds, soft, nontender, no hepatosplenomegaly Skin no rashes, warm and dry Psychiatric A+Ox3, euthymic affect Results & Data Results & Data Laboratory Results . Diagnostic Findings X-rays of the left knee show advanced osteoarthritis with joint space narrowing, osteophyte formation, and [id number] articulation. PG Care Time/CCT Total # of Minutes Spent Total Time Spent with Patient: Total time spent is greater than 50% in coordination of care (as documented) at patient's floor/unit and/or counseling patient: Coding Level of Care Code None Diagnoses Osteoarthritis of knee M17.10
[~2023-03-29 08:48] MED LIST changes: +ACETAMINOPHEN 500 MG TAB PO SCH; -ASPI81TA28 PO; -BENZ100C7 PO; +BUPIVACAINE 0.5 % 5 MG/1 ML PF 10ML VIAL ONE; -CLB/200 PO; -CLR10 PO; +CeleBREX 200 MG CAP PO SCH; -ESCI1TAB9 PO; +FAMOTIDINE 20 MG TAB PO SCH; +GABAPENTIN 300 MG CAP PO SCH; +LR 15ML/HR IV SCH; -LSN/10125 PO; -LVQ750 PO; -MAGN400T5 PO; -METF1000 PO; -METO25TA56 PO; -MONT1TAB3 PO; -MULTTAB58 PO; -OMEP20CA9 PO; +ORTHO JOINT MIX INFIL SCH; -POTA99TA PO; -PROB1TAB16 PO; -PRVHFAIN INH; -ROPI0.5T15 PO; +ROPIVACAINE 0.5% 5 MG/ML 30 ML VIAL ONE; -ROSU20TA PO; +TRANEXAMIC ACID 1,000 MG **IV Intra-op IV SCH; +TRANEXAMIC ACID 1,000 MG **IV Pre-op IV SCH; -UMEC1INH INH; +ceFAZolin 2000MG 2,000 MG/15 ML SYR IV SCH
[2023-03-29] MEDS ORDERED: fentaNYL citrate PF 100 MCG/2 ML VIAL IV PRN (10:48)
[2023-03-29] MEDS ORDERED: ePHEDrine sulfate 50 MG/ML AMP IV PRN (10:48)
[2023-03-29] MEDS ORDERED: ONDANSETRON INJ 2 MG/ML 2 ML VIAL IV PRN ×2 (10:48→14:47)
[2023-03-29] MEDS ORDERED: ATROPINE SULFATE 0.1 MG/ML 10ML SYR IV PRN (10:48)
[2023-03-29] MEDS ORDERED: PROPOFOL IV EMULSION 10 MG/ML 20 ML VIAL IV ONE ×3 (10:55→12:59)
[2023-03-29] MEDS ORDERED: LIDOCAINE 2% 2 ML VIAL/AMP(20MG/ML) INFIL ONE (10:55)
--- NOTE | 2023-03-29 10:55 | History & Physical Bridge Note ---
Date of Service March 29, 2023 History & Physical Bridge Note I have examined the patient, reviewed the History & Physical and in the interval since the performance of the History & Physical I have noted the following changes of clinical significance: no changes noted
[2023-03-29] MEDS ORDERED: MIDAZOLAM HCL 1 MG/ML 2ML VIAL ONE (10:56)
[2023-03-29] MEDS ORDERED: ORTHO JOINT ANESTHETIC ONE (11:20)
[2023-03-29] MEDS ORDERED: ePHEDrine sulfate 50 MG/ML SYR ONE (12:34)
--- NOTE | 2023-03-29 13:36 | Operative Report ---
PG Post Operative Report Pre & Post Diagnosis Operation Date: 03/29/23 11:00 Pre-Op Diagnosis: Left Knee Degenerative Joint Disease Post-Op Diagnosis: Left Knee Degenerative Joint Disease I identified the patient and participated in the time-out.: Yes Procedure Operation Date: 03/29/23 11:00 Actual Procedures p Left Total Knee Arthroplasty, Cemented(Left) - Cristopher Dempsey DO Surgeon Cristopher Dempsey DO [employer]ide [employer] Sergeant Cristopher Sullivan PA-C Estimated Blood Loss 30 Findings Consistent with Post-Op Diagnosis Specimens Left femoral tibial bone Description of Procedure Implants used: I used a Dionicio Persona total knee arthroplasty system with a size 8 standard PS femur, F tibia, 31 oval patella, and a size 10 CPS polyethylene bearing. All components were cemented in place with Biomet cement. Kodi arrived [facility] for the above procedure. He was seen in the preoperative holding area and the operative extremity was identified and signed. He was given a preoperative antibiotic, TXA, a spinal anesthetic and an adductor nerve block. He was taken back to the operating room and laid on the table in supine position. He was given basic sedation. The operative knee was then prepped and draped in sterile fashion. A timeout was done, and the patient and the operative extremity was properly identified. A midline incision was made directly over the patella. Dissection was taken down to the extensor mechanism. A midvastus arthrotomy was used. The medial retinaculum was released and the fat pad was mostly excised. The knee was flexed and the ACL, PCL, and meniscus were removed. A drill was sent down the center of the femoral canal followed by an intramedullary constantin. Off that constantin a distal femoral cutting block was placed. 9 mm was resected off the distal femur at 5 of valgus. A posterior referencing AP sizing guide was then placed on the distal femur. The femur measured to be a size 8. 2 drill holes were placed in 3 of external rotation. A 4-in-1 cutting block was then impacted into place. Anterior, posterior, and chamfer cuts were then made. The proximal tibia was then exposed. An external tibial alignment guide was placed. A tibial cut guide was then anchored in place and the proximal tibia was then resected. The posterior aspect of the knee was then opened up and any additional meniscus fragments and osteophytes were removed. The tibia measured to be a size F. The tibial plate was then placed in the appropriate rotation and the tibia was drilled and punched. Trial components were then placed. I used a size 10 CPS polyethylene insert. The knee was brought through a full range of motion and felt to be stable. The peg holes for the femoral component were then drilled. The patella was then everted and 9 mm was resected off the posterior aspect of the patella. The patella measured to be a size 31 oval. 3 peg holes were then drilled. A trial patella was placed. The knee was once again brought through a full range of motion and felt to be stable. Trial components were then removed. The surrounding soft tissues were injected with 100 cc of an orthopedic pain control cocktail. All components were then cemented into place with Biomet cement. The final polyethylene insert was then snapped into place. Once cement was dry the tourniquet was deflated. Hemostasis was obtained. A dilute betadyne lavage was then done for 3 minutes. The joint was then irrigated with normal saline solution. The midvastus arthrotomy was then closed with #1 Vicryl suture. The skin was closed with 2-0 Vicryl, 3-0V lock suture, and joey. A soft compressive dressing was placed. He was then transferred to a hospital bed and taken to the postanesthesia care unit in stable condition. He tolerated the procedure well. Cristopher Sullivan PA-C, was present for the entire procedure. He was critical for patient positioning, prepping, draping, retraction exposure, wound closure and application of sterile dressing. I attest to the content of the Intraoperative Record and any orders documented therein. Any exceptions are noted below.
--- NOTE | 2023-03-29 14:12 | Anesthesiology Progress Note ---
Date of Service March 29, 2023 Anesthesia Post Procedure Vital Signs Vital Signs: Temp Pulse Resp BP Pulse Ox O2 Del Method 03/29/23 09:33 CPAP 03/29/23 09:33 98.1 F 63 18 133/84 93 Room Air Transfer of Care Handoff Completed per policy Notes Mental Status: alert / awake / arousable and participated in evaluation Patient Amnestic to Procedure: Yes Nausea / Vomiting: adequately controlled Pain: adequately controlled Airway Patency, RR, SpO2: stable & adequate BP & HR: stable & adequate Hydration State: stable & adequate Neuraxial Anesthesia: was administered and sensory block is resolving Anesthetic Complications: no major complications apparent and Pt Satisfied with anesthetic care
--- NOTE | 2023-03-29 14:29 | XRay Report ---
LEFT KNEE 2 VIEWS History: Left total knee arthroplasty. Degenerative arthritis. Postop. FINDINGS: The patient is status post a left total knee arthroplasty. The hardware is intact. No fract ure or dislocation. Skin joey are in place. IMPRESSION: Left total knee arthroplasty. No evidence for hardware complication. ACT 112: Negative or not required by law. Electronically signed by: Lew Delgado M.D. 03/29/2023 2:27 PM
[2023-03-29] MEDS ORDERED: METOCLOPRAMIDE HCL 10 MG TABLET PO PRN (14:47)
[2023-03-29] MEDS ORDERED: HYDROmorphone INJ 0.5 MG/0.5 ML SYR IV PRN (14:47)
[2023-03-29] MEDS ORDERED: NALOXONE HCL 0.4 MG/1 ML VIAL/CARP IV PRN (14:47)
[2023-03-29] MEDS ORDERED: NITROGLYCERIN SL 0.4 MG/TAB TAB SL PRN (14:47)
[2023-03-29] MEDS ORDERED: PHARMACY GLYCEMIC MGMT CONSULT PRN (14:47)
[2023-03-29] MEDS ORDERED: MAGNESIUM HYDROXIDE SUSP 30 ML UDC PO PRN (14:47)
[2023-03-29] MEDS ORDERED: METOCLOPRAMIDE HCL INJ 5 MG/ML 2 ML VIAL IV PRN (14:47)
[2023-03-29] MEDS ORDERED: ALBUTEROL HFA 8 GM INHALER INH PRN (14:47)
[2023-03-29] MEDS ORDERED: bisacodyL 10 MG SUPP PR PRN (14:47)
[2023-03-29] MEDS: METOPROLOL TARTRATE 100 MG TAB PO SCH (15:34)
[2023-03-29] MEDS: SODIUM CHLORIDE 0.9% 1000ML 1,000 ML IV SCH (15:54)
[2023-03-29] MEDS: ACETAMINOPHEN 500 MG TAB PO SCH ×2 (15:54→22:20)
[2023-03-29] MEDS: INSULIN ASPART PER UNIT CHARGE SC SCH ×2 (17:23→20:40)
[2023-03-29] MEDS ORDERED: CARBOHYDRATES FOR HYPOGLYCEMIA PO PRN (19:00)
[2023-03-29] MEDS ORDERED: GLUCAGON FOR INJ 1 MG VIAL IM PRN (19:00)
[2023-03-29] MEDS ORDERED: DEXTROSE 50% 50 ML SYRINGE IV PRN (19:00)
[2023-03-29] MEDS ORDERED: GLUCOSE 40% GEL 15 GM TUBE PO PRN (19:00)
[2023-03-29] MEDS ORDERED: GLUCOSE 10 TAB/TUBE PO PRN (19:00)
[2023-03-29] MEDS: MEMANTINE HCL 10 MG TAB PO SCH (20:10)
[2023-03-29] MEDS: DOCUSATE SODIUM 100 MG CAP PO SCH (20:11)
[2023-03-29] MEDS: PANTOprazole 40 MG TAB PO SCH (20:11)
[2023-03-29] MEDS: ASPIRIN 81 MG ECTAB PO SCH (20:11)
[2023-03-29] MEDS: MAGNESIUM OXIDE 400 MG TAB PO SCH (20:11)
[2023-03-29] MEDS: ceFAZolin 2000MG 2,000 MG/15 ML SYR IV SCH (20:34)
[2023-03-29] MEDS ORDERED: MONTELUKAST SODIUM 10 MG TABLET PO SCH (21:00)
[2023-03-29] MEDS ORDERED: rOPINIRole HCL 0.25 MG TABLET PO SCH (21:00)
[2023-03-29] MEDS ORDERED: SENNA 8.6 MG TAB PO SCH (21:00)
[2023-03-29] MEDS: oxyCODONE HCL IR 5 MG TAB (IMMEDIATE RELEASE) PO PRN (22:20)
[2023-03-30] MEDS: SODIUM CHLORIDE 0.9% 1000ML 1,000 ML IV SCH (04:13)
[2023-03-30] MEDS: METOPROLOL TARTRATE 100 MG TAB PO SCH (04:24)
[2023-03-30] MEDS: ceFAZolin 2000MG 2,000 MG/15 ML SYR IV SCH (04:25)
[2023-03-30] MEDS: ACETAMINOPHEN 500 MG TAB PO SCH ×2 (05:49→13:08)
--- NOTE | 2023-03-30 07:01 | Orthopedic Progress Note ---
Date of Service March 30, 2023 Assessment & Plan (1) Status post left knee replacement: Overall he is doing very well. He is not having too much pain in the left knee. He is on aspirin for DVT prophylaxis. He will be seen by physical therapy today for ambulation and range of motion exercises. He can be discharged home later today. He will follow-up with orthopedics in 2 weeks. Subjective Kodi was seen and examined at bedside this morning. Overall he is doing very well. He is not having much pain in the left knee. He has been up and ambulating to the bathroom. He has no complaints.. Review of Systems All systems reviewed & are unremarkable except as noted in HPI & below. Physical Exam On physical examination of the left knee, the dressing is clean and dry. His leg is out full extension. He has active dorsiflexion plantarflexion of the left ankle.. Results & Data Results & Data Laboratory Results . Diagnostic Findings Postoperative x-rays of the left knee show the prosthesis to be in anatomic alignment without any evidence of fracture, desiccation, or loosening. PG Care Time/CCT Total # of Minutes Spent Total Time Spent with Patient: Total time spent is greater than 50% in coordination of care (as documented) at patient's floor/unit and/or counseling patient: Coding Level of Care Code 85419 Post Operative Follow-Up Diagnoses Status post left knee replacement Z96.652
--- NOTE | 2023-03-30 07:02 | Discharge Summary ---
Date of Service March 30, 2023 Admission HPI (Per Admitting) Kodi is a pleasant 77-year-old male, who has been dealing with chronic worsening left knee pain. X-rays and clinical examination have been diagnostic for advanced osteoarthritis of left knee. After failing conservative treatment, he has elected to proceed with a left total knee arthroplasty. . Admission Exam (Per Admitting) On physical examination of left knee, he has range of motion 0 to 120 degrees. No instability. Pain of the distal femoral condyles.. Principal Diagnosis Same as "Discharge Diagnosis" noted below under Discharge Instructions. Discharge Exam On physical examination of the left knee, the dressing is clean and dry. His leg is out full extension. He has active dorsiflexion plantarflexion of the left ankle.. Discharge Data Procedures Performed Operation Date: 03/29/23 11:00 Actual Procedures p Left Total Knee Arthroplasty, Cemented(Left) - Cristopher Dempsey DO Ordered Studies 03/29/23 05:00 US - OR guided needle placemen Routine Hospital Course (1) Status post left knee replacement: On March 30, 2023 Kodi arrived at [facility] and underwent a left knee replacement without complication. He had a spinal anesthetic. Postoperatively he was started on aspirin for DVT prophylaxis and transferred to the general orthopedic floors. His hospital course was uneventful. On postop day #1, his vital signs were stable and his pain was well controlled. He was able to participate well with physical therapy doing ambulation and range of motion exercises. He was then discharged home. He will follow with orthopedics in 2 weeks. PG Care Time/CCT Total # of Minutes Spent Total Time Spent with Patient: Total time spent is greater than 50% in coordination of care (as documented) at patient's floor/unit and/or counseling patient: Discharge Plan Discharge Items Patient Disposition: Home - Home Health Services Reason For Visit: Left Knee Degenerative Joint Disease Discharge Diagnosis: Left knee replacement Activity: Per Instructions section Non-emergency contact: Surgeon Call non-emergency contact if: your wound has increased redness and your wound has increased drainage Follow-up/Referrals: Oscar Sullivan DO [Primary Care Provider] - Diet: Regular Addtl Attending Provider Instructions: Activity and Therapy Recommendations: * If you are using [facility] then therapy will be provided at your home until they feel you have accomplished all of your goals. * If you are using [facility] then Physical Therapy will be provided until they feel you are ready to start Outpatient Physical Therapy. * If you are not using home therapy then Outpatient Physical Therapy should start about 3-5 days from your day of surgery. Therapy will last about 6-10 weeks * It is important not to put a pillow under your knee when you are relaxing or sleeping. It is just as important to make sure you are getting your knee perfectly straight as it is to regain your knee bend. * You were shown a series of exercises in the hospital. Do these exercises three times each day including the exercises you were shown in physical therapy. * Get up and walk several times each day. For the first four weeks, try not to stand or walk for more than one hour at a time. If you do stand or walk for more than one hour, you will not hurt anything, but your leg will likely swel l. * As you feel comfortable, you may change from the walker or crutches to a cane and then to independent walking. Medications: * Narcotic You will likely be sent home from the hospital with a prescription for the narcotic pain medication that worked best throughout your stay. * Aspirin Most patients will be required to take Aspirin 81mg twice a day for 6 weeks after surgery. This is obtained [id number] and a prescription is not necessary. * Other medications may be prescribed for specific circumstances. If you have any questions, please call the office at . * Resume previous home medications unless otherwise instructed TEDs/Elastic Stockings: The white elastic stockings help limit swelling and prevent blood clots from forming in your legs.~ The more you wear them, the more they work. Wear them for six weeks. Dressing Care: The dressing can be changed after physical therapy on postop day #1. Daily dry dressing changes for a few days, especially if the incision is still draining some. If the incision is not draining then you may leave the joey open to air. If there is a little bit of drainage or if the joey are getting stuck on your clothing then cover the incision with a dry dressing. The joey will be removed at your 2 week follow-up appointment. Showering: You may shower 5 days from the day of surgery as long as the incision is no longer draining. You may shower with the joey exposed. Let soapy water run over the joey and pat them dry. Do not scrub or soak the incision. Things To Watch For: * Drainage from the incision site that occurs more than one week after your surgery. * Increased redness at the incision site. * Fever above 102 degrees Fahrenheit. * Unusual chest pain or shortness of breath. * Call [facility] at with any of the above problems Follow-Up Visit: Follow-up with Dr. Dempsey's PA (Cristopher Sullivan) 2-3 weeks after your day of surgery. He will remove your joey and answer any questions. If you have any additional questions or concerns, Dr Dempsey is usually in the office at the same time and will be available An appointment was probably scheduled when you signed-up for surgery in the office. If you have any questions call Office Instructions: More detailed instructions as well as Frequently Asked Questions were provided in a folder by our office when you signed-up for surgery. Please review these instructions when you get home. If you have any further questions or concerns, please feel free to call the office at [phone] Pending Studies at Discharge: No Stand-Alone Forms: My [facility] Medications and DC Order Prescriptions: New oxycodone-acetaminophen 5-325 mg tablet 1 tab PO Q6H PRN (Reason: pain) Qty: 30 0RF aspirin [Adult Aspirin Regimen] 81 mg tablet,delayed release (DR/EC) 81 mg PO BID Qty: 84 0RF Continued metoprolol tartrate 100 mg tablet 100 mg PO Q12H Qty: 180 3RF metformin 1,000 mg tablet 1,000 mg PO BID Qty: 180 3RF oxcarbazepine 300 mg tablet 300 mg PO DAILY Qty: 90 1RF montelukast 10 mg tablet See Rx Instructions .ROUTE .COMPLEX Qty: 90 3RF Dose Instruction: TAKE 1 TABLET BY MOUTH EVERY EVENING Rx Instructions: TAKE 1 TABLET BY MOUTH EVERY EVENING Incruse Ellipta 62.5 mcg/actuation blister with device 1 inh inhalation QAM Qty: 30 5RF Jardiance 10 mg tablet 10 mg PO DAILY Qty: 30 5RF atorvastatin 40 mg tablet 40 mg PO QAM Qty: 90 1RF Rx Instructions: TAKE 1 TABLET BY MOUTH EVERY MORNING loratadine [Claritin] 10 mg tablet 10 mg PO QAM Qty: 90 magnesium oxide 400 mg (241.3 mg magnesium) tablet 400 mg PO BID multivitamin [Multiple Vitamins] tablet 1 tab PO QAM nitroglycerin 0.4 mg tablet, sublingual 0.4 mg SL Q5M PRN (Reason: chest pain) Qty: 25 3RF lisinopril 5 mg tablet 5 mg PO DAILY Qty: 90 3RF ropinirole 0.5 mg tablet 0.75 mg PO HS Qty: 135 3RF Rx Instructions: 1 & 1/2 tablet dose (DME) CPAP Supplies Misc See Rx Instructions .MEDSUPPLY Qty: 1 0RF Rx Instructions: Please provide with new supplies. Headgear, mask, tubing and filters as appropriate. albuterol sulfate 90 mcg/actuation HFA aerosol inhaler 2 inh inhalation Q6H PRN (Reason: shortness of breath or wheezing) Qty: 18 5RF metoclopramide HCl [Reglan] 10 mg tablet 10 mg PO Q6H PRN (Reason: nausea and vomiting) Qty: 60 1RF cyanocobalamin (vitamin B-12) 1,000 mcg Tablet 1,000 mcg PO BID cholecalciferol (vitamin D3) [Vitamin D3] 25 mcg (1,000 unit) Capsule 25 mcg PO BID potassium gluconate 595 mg (99 mg) Tablet 595 mg PO QAM ascorbic acid (vitamin C) 100 mg tablet 100 mg PO QAM Probiotic 3 billion cell capsule 3,000 mmu cells PO QAM prednisone 5 mg tablet 5 mg PO QAM methotrexate sodium 2.5 mg tablet 15 mg PO WK Rx Instructions: take 6 tablets weekly- WEDNESDAYS folic acid 1 mg tablet 1 mg PO QAM pantoprazole [Protonix] 40 mg tablet,delayed release (DR/EC) 40 mg PO BID furosemide [Lasix] 20 mg tablet 20 mg PO QAM escitalopram oxalate [Lexapro] 20 mg tablet 20 mg PO DAILY memantine [Namenda] 10 mg tablet 10 mg PO BID Discontinued aspirin 81 mg tablet,delayed release (DR/EC) 81 mg PO QAM Qty: 90 Admission Data Admit Date/Time: 03/29/23 13:57 Attending Provider: Cristopher Dempsey Admit Provider: Cristopher Dempsey Primary Care Provider: Oscar Sullivan
[2023-03-30] MEDS: PANTOprazole 40 MG TAB PO SCH (08:31)
[2023-03-30] MEDS: MEMANTINE HCL 10 MG TAB PO SCH (08:31)
[2023-03-30] MEDS: DOCUSATE SODIUM 100 MG CAP PO SCH (08:31)
[2023-03-30] MEDS: ASPIRIN 81 MG ECTAB PO SCH (08:32)
[2023-03-30] MEDS: INSULIN ASPART PER UNIT CHARGE SC SCH ×2 (08:45→13:06)
[2023-03-30] MEDS ORDERED: UMECLIDINIUM BROMIDE 62.5MCG/BLISTER 7 PUFFS/INHALER INH SCH (09:00)
[2023-03-30] MEDS ORDERED: NON-FORMULARY MEDICATION (Potassium Gluconate 595 mg (99 mg) Tablet) PO SCH (09:00)
[2023-03-30] MEDS ORDERED: ESCITALOPRAM OXALATE 20 MG TAB PO SCH (09:00)
[2023-03-30] MEDS ORDERED: lisinopril 5 MG TAB PO SCH (09:00)
[2023-03-30] MEDS ORDERED: FOLIC ACID 1 MG TAB PO SCH (09:00)
[2023-03-30] MEDS ORDERED: OXcarbazepine 150 MG TABLET PO SCH (09:00)
[2023-03-30] MEDS ORDERED: LORATADINE 10 MG TAB PO SCH (09:00)
[2023-03-30] MEDS ORDERED: predniSONE 5 MG TAB PO SCH (09:00)
[2023-03-30] MEDS ORDERED: ATORVASTATIN 40 MG TAB PO SCH (09:00)
[2023-03-30] MEDS ORDERED: FUROSEMIDE 20 MG TAB PO SCH (09:00)
[2023-03-30] MEDS ORDERED: MULTIVITAMIN TAB PO SCH (09:00)
[2023-03-30] MEDS: MAGNESIUM OXIDE 400 MG TAB PO SCH (10:06)
[2023-03-30] MEDS: oxyCODONE HCL IR 5 MG TAB (IMMEDIATE RELEASE) PO PRN (10:09)
== END 2023-03-30 14:52 | disposition home or self-care (01) ==
LOC: 3E 08:48 → ASU 08:48

== ENCOUNTER 2025-10-18 18:14 | Inpatient (IN) ==
--- NOTE | 2025-10-18 18:27 | Emergency Department Note ---
Impression & Plan Acute renal failure (ARF), Lewy body dementia, Acute dehydration, Frequent falls ED Provider Note NAME: BRIGITTE BOSWELL AGE: 80 SEX: M : 1945 ARRIVES VIA: Ambulance INFORMANT: Patient, ED PROVIDER(S): Miki Segovia MD CHIEF COMPLAINT: Weakness, falls, hip pain MEDICAL DECISION MAKING: Patient presents with the above. On exam the patient does have some lumbar spine discomfort in addition to the left hip discomfort although the patient is able to raise left leg up off the bed. Follows commands appropriately. IV was established and blood work was obtained. Afebrile at the bedside. Patient's blood work shows a normal white count hemoglobin 9.5 which is chronic and stable. The patient's platelet count is unremarkable. Acute renal failure noted with a creat of 4.8. Patient does have slight anion gap of 14. Hyperchloremia noted. The patient's potassium is normal. Calcium of 8.4. Patient's EKG is fairly unremarkable. Bladder scan completed patient without significant retention is about [address] abdomen pelvis performed to rule out obstructive uropathy or other cause. Family did report the patient did fall in the bathroom unclear as about the patient hit his head. CT head also obtained. Patient's plain films negative for fracture. Chest x-ray does show cardiomegaly and bilateral pleural effusions. Do believe though that the patient likely has poor inspiratory effort as patient does not appear to be volume overloaded on exam. Patient was ordered 500 cc of IV fluids. CT abdomen pelvis shows possible cystitis but no other concerning finding. CT head negative. Dr. Ardon and the patient was admitted to the medicine service. Discussion w/ other healthcare providers: Dr. Griggs inpatient medicine service Prior /Outside records reviewed: I reviewed part of a neurology visit from October [address] Kiser. Patient with a history of Lewy body dementia. Patient with a known history of shuffling gait occasional falls obstinate with regards to using his cane. He lives with the spouse. Patient on memantine but was started on donepezil. I did review a wellness visit from Dr. Sullivan from July 2025. History of type 2 diabetes RA COPD CHF aortic stenosis and hypertension. Also hyperlipidemia. Differential diagnosis: Infection, dehydration, metabolic abnormality, hypo/hyperglycemia, electrolyte imbalance, anemia, UTI, pneumonia, thyroid dysfunction among others were considered. Diagnostics, as interpreted by me: ECG: Normal sinus rhythm, rate of 77, normal intervals, normal axis no ST elevations. Cardiac monitoring: An order was placed for continuous cardiac monitoring. The monitor shows a rate of 75 with sinus rhythm. Patient was placed on pulse oximetry Medical decision rules: None Imaging studies: I informally interpreted the patient's chest x-ray shows possible bilateral pleural effusions no obvious pneumothorax with formal report to follow. HPI: Patient presents due to concern for frequent falls. Patient reportedly has had increasing ambulatory dysfunction and associated weakness. Not eating or drinking the last several days. Patient reportedly has been falling at home and apparently does live with family. He reportedly does have a history of dementia. EMS provides the majority of the history. Patient reportedly did not have any head strike or LOC does not take any blood thinners. He denies any chest pain or shortness of breath no cough or fever. Reportedly has complained of some left hip pain but was ambulatory today but after some of his falls. Additional history obtained from family when they arrived and they report the patient did have a fall in the bathroom and tripped with a known to hit his head. They did report that he had complained of some headache today. PAST MEDICAL HISTORY: See Below PAST SURGICAL HISTORY: See Below SOCIAL HISTORY: See Below HOME MEDICATIONS: See Below ALLERGIES: See Below VITALS: See Below PHYSICAL EXAMINATION: GENERAL: NAD, non-toxic. Head: Normocephalic atraumatic. EYE EXAM: Normal conjunctiva. PERRL, no anisocoria and EOM's grossly intact w/o pain. OROPHARYNX: Moist mucus membranes, grossly normal dentition. NECK: Trachea midline, no stridor. No midline C-spine TTP. LUNGS: Clear to auscultation. Normal chest wall mechanics. HEART: NSR, no MRG. ABDOMEN: Abdomen soft, non-tender, no masses, no rebound or guarding. BACK: No CVA TTP. Mild midline lower back pain without paraspinal pain or overlying skin changes. SKIN: No rashes and no bruising. UPPER EXTREMITIES: Upper extremities are grossly normal. No TTP or deformity. LOWER EXTREMITIES: Grossly normal, no edema. Mild pain to the left hip no obvious deformity able to raise the left leg up off the bed. No obvious leg length discrepancy. NEURO EXAM: Awake and alert, follows commands, no obvious facial asymmetry, normal speech, moves all 4 extremities. Past Med/Surg History Problem List (Updated 10/18/25 @ 22:30 by Miki Segovia MD) Frequent falls (Acute) Acute dehydration (Acute) Acute renal failure (ARF) (Acute) Lewy body dementia (Acute) Impaired gait Urge incontinence Exertional chest pain Status post left knee replacement Elevated lactic acid level (Acute) Presence of drug-eluting stent in right coronary artery Rheumatoid arthritis Follows with Dr. Brewer S/P [facility] 12/2019 Dementia CAD (coronary artery disease) Type 2 diabetes mellitus Chest pain, exertional Generalized weakness (Acute) Chronic low back pain Venous insufficiency (Acute) Tubular adenoma of colon (Acute) Restrictive lung disease (Acute) Restless legs (Acute) Peptic ulcer (Acute) HX Osteoarthritis of knee (Acute) Obstructive sleep apnea (Acute) no device using>sleep test apt 11/26/23 Obesity (Acute) PRITCHETT (nonalcoholic steatohepatitis) (Acute) Multiple pulmonary nodules (Chronic) monitoring Mediastinal adenopathy (Chronic) Lumbar radiculopathy (Acute) Low vitamin B12 level (Acute) [facility] current use of systemic steroids (Chronic) Laryngopharyngeal reflux (Acute) Inhibited sexual excitement (Acute) Hyperlipidemia (Acute) Hiatal hernia (Acute) Hearing difficulty (Acute) Generalized osteoarthritis of multiple sites (Acute) GERD without esophagitis (Acute) Former smoker (Chronic) Essential hypertension (Acute) Edema of both legs (Acute) Disc degeneration, lumbar (Acute) Difficulty reading due to visual problem (Acute) Diabetic peripheral neuropathy (Acute) Depression (Acute) Cognitive disorder (Acute) CKD (chronic kidney disease) (Acute) Follows with Dr. Garcia Anemia (Acute) Alzheimer's disease (Acute) Allergic rhinitis (Acute) Hypoxia COPD (chronic obstructive pulmonary disease) Medical History PRITCHETT (nonalcoholic steatohepatitis) hx Venous insufficiency Urge incontinence Hx of colonic polyps Rheumatoid arthritis Restless leg syndrome ENDY (obstructive sleep apnea) CPAP Multiple pulmonary nodules monitoring Impaired gait hx, cane prn Hyperlipidemia GERD without esophagitis Generalized weakness Essential hypertension Diabetes mellitus, type 2 NIDDM Diabetic peripheral neuropathy Dementia CKD (chronic kidney disease) f/u dr. garcia Chronic low back pain Allergic rhinitis Alzheimers disease Severe aortic stenosis History of recent fall seen in [place] ED recently for fall>apt today with Cayetano Barclay resolved Hx of peptic ulcer "years ago" Anxiety and depression Chronic anemia CAD (coronary artery disease) Stent x1 (2019) History of COVID-19 06/2021- fatigue, headache, hospitalized overnight>resolved Short-term memory loss Hiatal hernia Chronic obstructive pulmonary disease History of congestive heart failure f/u petar, vandana cardio Aortic stenosis s/p AVR (12/2019), properly functioning bioprosthetic aortic valve per 04/[address] Dillon Actinic keratosis Surgical History Hx of heart artery stent 2019, x1, [facility] Hx of cataract extraction rt/lt S/P TAVR (transcatheter aortic valve replacement) [place] [facility] [place] of foot surgery CYSTS REMOVED-LEFT History of total knee replacement rt/left S/P cardiac catheterization Stent x1 (2019) Hx of appendectomy H/O colonoscopy 2020 History of total knee arthroplasty duplicate Family History Mother Diabetes Coronary heart disease Hypertension Brother Hypertension Sister Hypertension Father Hypertension Denies family history of Ovarian cancer Prostate cancer Myocardial infarction Breast cancer Colorectal cancer Social History Smoking Status: Former smoker Tobacco Type: Cigarettes Age Started Using Tobacco: 19; Age Quit Using Tobacco: 31; packs per day: 1.5; Cigarettes Per Day: Quit 1975; Second Hand Exposure: No; Do You Dip or Chew Tobacco: No; Hx Alcohol Use: No Hx Substance Use: No Preferred Language: [place] Zealander Communication Ability: Effective Visual Impairment: Limited Hearing Ability: Hard of Hearing 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: No Beliefs That Will Affect Care: None marital status: Current Living Situation: Spouse Current Living Situation Comment: current occupational status: retired How many Children do You have: 2 Feels Safe at Home: Yes Childhood Exposure to Second-Hand Smoke: Yes Diet: regular caffeine: Yes during the past year weight has: remained stable Dental Care, Regularly: Yes Physical Activity Frequency: Does not Exercise Seatbelt Use: always Sunscreen Use: No Assistive Devices: Cane, CPAP and Glasses Allergies Allergies Allergy/AdvReac Type Severity Reaction Status Date / Time auranofin Allergy Severe Dyspnea Verified 10/18/25 20:33 Gold Salts Allergy Intermediate Hives Verified 10/18/25 20:33 Home Meds Home Medications Medication Instructions Recorded Confirmed multivitamin (Multiple Vitamins 1 tab PO QAM 06/19/19 10/18/25 tablet) loratadine 10 mg tablet (Claritin) 10 mg PO QAM #90 tabs 07/09/19 10/18/25 cholecalciferol (vitamin D3) 25 25 mcg PO BID 12/12/19 10/18/25 mcg (1,000 unit) capsule (Vitamin D3) cyanocobalamin (vitamin B-12) 1,000 mcg PO BID 12/12/19 10/18/25 1,000 mcg tablet potassium gluconate 595 mg (99 mg) 595 mg PO QAM 12/12/19 10/18/25 tablet prednisone 5 mg tablet 5 mg PO QAM 03/31/21 10/18/25 ascorbic acid (vitamin C) 100 mg 100 mg PO QAM 05/10/21 10/18/25 tablet lactobacillus combination no.4 3 3,000 mmu cells PO QAM 05/10/21 10/18/25 billion cell capsule (Probiotic) folic acid 1 mg tablet 1 mg PO QAM 03/12/22 10/18/25 methotrexate sodium 2.5 mg tablet 15 mg PO WK 03/12/22 10/18/25 magnesium oxide 400 mg (241.3 mg 400 mg PO BID 03/23/22 10/18/25 magnesium) tablet furosemide 20 mg tablet 20 mg PO UD PRN weight gain 2-3 02/22/25 10/18/25 pounds in 1 day. montelukast 10 mg tablet 10 mg PO HS 02/22/25 10/18/25 umeclidinium 62.5 mcg-vilanterol 1 inh inhalation QAM 02/22/25 10/18/25 25 mcg/actuation powdr for inhalation (Anoro Ellipta) amoxicillin 500 mg tablet 2,000 mg PO DIRECTED PRN 1 HR 10/18/25 10/18/25 PRIOR TO DENTAL PROCEDURES Previous Rx's Medication Instructions Recorded CPAP Supplies #1 ea 03/16/21 albuterol sulfate 90 mcg/actuation 2 inh inhalation Q6H PRN shortness 08/03/22 aerosol inhaler of breath or wheezing #18 grams aspirin 81 mg tablet,delayed 81 mg PO BID #84 tabs 05/06/23 release (Adult Aspirin Regimen) diclofenac sodium 1 % topical gel 2 g topical QID PRN pain, moderate 08/09/23 #100 grams nitroglycerin 0.4 mg sublingual 0.4 mg sublingual Q5M PRN chest 03/26/24 tablet pain #30 tabs blood-glucose sensor (FreeStyle #1 ea 02/11/25 Zhane 3 Sensor device) 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-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,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,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 #1 ea 02/11/25 (FreeStyle Zhane 3 [place]) lisinopril 5 mg tablet 5 mg PO QAM #90 tabs 02/11/25 escitalopram oxalate 20 mg tablet 20 mg PO QAM Depression #90 tabs 04/05/25 (Lexapro) metoprolol tartrate 100 mg tablet 100 mg PO Q12H #180 tabs 04/27/25 ranolazine 500 mg tablet,extended 500 mg PO BID #180 tabs 04/27/25 release,12 hr empagliflozin 25 mg tablet 25 mg PO QAM #30 tabs 06/02/25 mirabegron 25 mg tablet,extended 25 mg PO QAM #90 tabs 06/18/25 release 24 hr (Myrbetriq) metformin 1,000 mg tablet 1,000 mg PO BID #180 tabs 07/29/25 pantoprazole 40 mg tablet,delayed 40 mg PO BID #180 tabs 07/29/25 release (Protonix) ropinirole 1 mg tablet 1 mg PO BID #180 tabs 07/29/25 tamsulosin 0.4 mg capsule 0.4 mg PO QAM #90 caps 07/29/25 isosorbide mononitrate 60 mg 30 mg (1/2 x 60 mg) PO QAM #90 tabs 08/02/25 tablet,extended release 24 hr ferrous sulfate 324 mg (65 mg 324 mg PO DAILY #30 tabs 08/17/25 iron) tablet,delayed release atorvastatin 40 mg tablet 40 mg PO QPM #90 tabs 08/24/25 memantine 10 mg tablet 10 mg PO BID #180 tabs 10/06/25 donepezil 5 mg tablet 5 mg PO HS #30 tabs 10/13/25 oxcarbazepine 300 mg tablet 450 mg (1.5 x 300 mg) PO QAM #135 10/13/25 tabs Results & Data (ED) Vital Signs Vital Signs - 24 hr 10/18/25 18:24 10/18/25 18:30 10/18/25 18:31 Temperature 36.6 C Temperature Source Oral Pulse Rate 78 78 78 Respiratory Rate 22 21 Respiratory Effort / Characteristics Non-Labored Spontaneous Respiratory Depth Normal Respiratory Pattern Regular Blood Pressure 156/70 H 141/65 H Blood Pressure Mean 98 90 Pulse Oximetry 93 Oxygen Delivery Method Room Air Sepsis Recent Fever Within 48 Hours No Sepsis New/Unexplained Change in Mental Status N/A Sepsis Action Taken by Nursing No Action Required 10/18/25 19:12 10/18/25 19:30 10/18/25 20:00 Temperature Temperature Source Pulse Rate 76 72 73 Respiratory Rate 19 24 21 Respiratory Effort / Characteristics Respiratory Depth Respiratory Pattern Blood Pressure 115/63 110/51 L 119/70 Blood Pressure Mean 80 70 86 Pulse Oximetry 92 92 95 Oxygen Delivery Method Room Air Room Air Room Air Sepsis Recent Fever Within 48 Hours Sepsis New/Unexplained Change in Mental Status Sepsis Action Taken by Nursing 10/18/25 20:30 10/18/25 21:00 10/18/25 21:30 Temperature Temperature Source Pulse Rate 74 74 76 Respiratory Rate 18 19 19 Respiratory Effort / Characteristics Respiratory Depth Respiratory Pattern Blood Pressure 151/73 H 136/80 160/79 H Blood Pressure Mean 99 98 106 Pulse Oximetry 92 97 94 Oxygen Delivery Method Room Air Room Air Room Air Sepsis Recent Fever Within 48 Hours Sepsis New/Unexplained Change in Mental Status Sepsis Action Taken by Nursing 10/18/25 22:00 10/18/25 22:09 Temperature Temperature Source Pulse Rate 73 74 Respiratory Rate 24 Respiratory Effort / Characteristics Respiratory Depth Respiratory Pattern Blood Pressure 147/69 H Blood Pressure Mean 95 Pulse Oximetry 91 Oxygen Delivery Method Room Air Sepsis Recent Fever Within 48 Hours Sepsis New/Unexplained Change in Mental Status Sepsis Action Taken by Longterm Medications Current Medication List: was personally reviewed by me Laboratory Data Attestation: I reviewed the patient's lab results. 10/18/25 18:20 10/18/25 18:20 Lab Results 10/18/25 Range/Units 18:20 WBC 8.06 (4.8-10.8) K/ul RBC 3.08 L (4.70-6.10) M/uL Hgb 9.5 L (14.0-18.0) g/dL Hct 30.7 L (42.0-52.0) % MCV 99.7 (80.0-100.0) fL MCH 30.8 (25.0-34.0) pg MCHC 30.9 L (32.0-36.0) g/dL RDW Std Deviation 80.2 H (36.4-46.3) fL RDW Coeff of Farideh 22.1 H (11.5-14.5) % Plt Count 202 (130-400) K/uL MPV 9.9 (9.4-12.4) fL Immature Gran % (Auto) 0.7 % Neut % (Auto) 79.0 % Lymph % (Auto) 14.1 % [place] % (Auto) 5.1 % Eos % (Auto) 0.7 % Baso % (Auto) 0.4 % Neut # (Auto) 6.36 (1.40-6.50) K/uL Lymph # (Auto) 1.14 L (1.20-3.40) K/uL [place] # (Auto) 0.41 (0.11-0.59) K/uL Eos # (Auto) 0.06 (0.00-0.50) K/uL Baso # (Auto) 0.03 (0.00-0.20) K/uL Immature Gran # (Auto) 0.06 (0.01-0.20) K/uL Absolute Nucleated RBC 0.03 (0.00-0.12) K/uL Nucleated RBC % (auto) 0.4 % Anisocytosis Present Ovalocytes 1+ Echinocytes 1+ Sodium 139 (136-145) mmol/L Potassium 3.9 (3.5-5.1) mmol/L Chloride 111 H (98-107) mmol/L Carbon Dioxide 14 L (21-32) mmol/L Anion Gap 14 H (3-11) BUN 48 H (6-23) mg/dl Creatinine 4.86 H* (0.6-1.4) mg/dl Est Cr Clr Drug Dosing 13.3 ml/min eGFR 11.41 BUN/Creatinine Ratio 9.9 L (10-20) Glucose 124 H (70-99(Fasting)) mg/dl Calcium 8.4 L (8.6-10.3) mg/dl Magnesium 2.3 (1.7-2.4) mg/dl Total Bilirubin 0.4 (0.2-1.0) mg/dl AST 15 (13-39) U/L ALT 19 (7-52) U/L Alkaline Phosphatase 56 (34-104) U/L Troponin I High Sens 9.4 (0-20) pg/ml Total Protein 7.0 (6.0-8.3) gm/dl Albumin 3.5 (3.4-5.0) gm/dl Globulin 3.5 (2.5-4.0) gm/dl Albumin/Globulin Ratio 1.0 (0.9-2) TSH 1.014 (0.300-4.500) uIu/ml Administered Medications Discontinued Medications Sodium Chloride (Nss) 1,000 mls @ 500 mls/hr IV .Q2H ONE Stop: 10/18/25 21:43 Last Admin: 10/18/25 20:27 Dose: Not Given Documented By: [facility] Sodium Chloride (Nss) 500 mls @ 500 mls/hr IV .Q1H ONE Stop: 10/18/25 20:45 Last Admin: 10/18/25 20:27 Dose: 500 mls/hr Documented By: [facility] Imaging Data Radiologist's Impression: Chest X-Ray 10/18/25 18:24 Single frontal view of the chest Comparison made to prior exam dated 10/14/2023 Impression Cardiomegaly. Bilateral pleural effusions. Electronically signed by Jagdish Flowers 10-18-2025 8:40 PM Hip/Pelvis X-Ray 10/18/25 18:24 INDICATION: Pain TECHNIQUE: Frontal pelvis and 2 views of the left hip were obtained. COMPARISON: None FINDINGS: No displaced acute osseous process is identified. Mild osteoarthritis of the left hip joint. IMPRESSION: No displaced acute osseous process is identified. Mild osteoarthritis of the left hip joint. Electronically signed by Trey Larry 10-18-2025 8:14 PM Lumbar Spine X-Ray 10/18/25 18:24 INDICATION: Pain TECHNIQUE: 3 views of the lumbosacral spine were obtained. COMPARISON: Lumbosacral spine radiographs 2021 FINDINGS: No significant vertebral body height loss. Grade 1 anterolistheses of L3 on L4 and L4 on L5. Multilevel degenerative changes of the lumbar spine characterized by disc space loss, endplate changes of the vertebral bodies with small marginal osteophyte formation and bilateral facet arthropathy resulting in neural foraminal narrowing that is most progressed at L4-S1. IMPRESSION: No displaced acute osseous process is identified. Multilevel degenerative changes as above Electronically signed by Kendy Trey 10-18-2025 8:14 PM Abdomen/Pelvis CT 10/18/25 19:44 Exam(s): CT ABDOMEN + PELVIS Without Contrast EXAM: CT Abdomen and Pelvis Without Intravenous Contrast CLINICAL HISTORY: Reason for exam: ARF. TECHNIQUE: Axial computed tomography images of the abdomen and pelvis without intravenous contrast. Automated exposure control was utilized for the study. A dose lowering technique was utilized adhering to the principles of ALARA. Mild artifact from breathing, body habitus and bilateral arms in the field of view. COMPARISON: CT abdomen pelvis 03/12/2022. FINDINGS: Lung bases: Moderate cardiomegaly and vascular prominence, may relate to low lung volumes, can not rule out acute CHF or pneumonia. Liver: Scattered granulomata. Gallbladder and bile ducts: Cholelithiasis without acute cholecystitis, stable. No ductal dilation. Pancreas: No ductal dilation, or acute pancreatitis. Spleen: Scattered granulomata, stable. Adrenals: Unremarkable. Kidneys and ureters: Multiple bilateral renal cysts, largest left lower pole anteriorly, has slightly increased in size, now 6.1 cm, previously 5.4 cm. No stone or hydronephrosis. Stomach and bowel: No obstruction. Appendix: No acute appendicitis. Intraperitoneal space: No free air or fluid. Bones/joints: No acute fracture. Soft tissues: Unremarkable. Vasculature: No aortic aneurysm. Lymph nodes: No enlarged lymph nodes. Bladder: Mild wall thickening may be artifact from underdistention, mild cystitis. Reproductive: Unremarkable as visualized. IMPRESSION: 1. Question cystitis. 2. No other/definite acute intra-abdominal or intrapelvic abnormality, and no significant interval change. Electronically signed by: Stephanie Farooq M.D. 10/18/25 22:[address] 10/18/25 19:58 Exam(s): CT HEAD Without Contrast EXAM: CT Head Without Intravenous Contrast CLINICAL HISTORY: Reason for exam: falls. TECHNIQUE: Axial computed tomography images of the head/brain without intravenous contrast. Automated exposure control was utilized for the study. A dose lowering technique was utilized adhering to the principles of ALARA. Mild motion artifact. COMPARISON: Head CT 10/14/2023 and MRI brain 10/16/2024. FINDINGS: Brain: No mass, edema, mass effect or acute infarct. No acute hemorrhage. Mild atrophy and chronic, nonspecific white matter disease, stable. Ventricles: No hydrocephalus or midline shift. Bones/joints: No skull fracture. Soft tissues: No scalp hematoma. Visualized Sinuses: Clear. Mastoid air cells: Stable, mild right mastoid effusion. IMPRESSION: 1. Stable age-related findings. 2. No acute infarct, bleed, acute intracranial abnormality, or interval change. Electronically signed by: Stephanie Farooq M.D. 10/18/25 21:46 PM Discharge Plan Visit Data Chief Complaint: Fall Stated Complaint: FALL ED Provider: Miki Segovia Discharge Problem: Acute renal failure (ARF), Lewy body dementia, Acute dehydration, Frequent falls Patient Disposition: Admitted As Inpatient Condition: Good Forms Stand Alone Forms: [facility] [employer] Prescriptions Prescriptions: No Action escitalopram oxalate [Lexapro] 20 mg tablet 20 mg PO QAM Qty: 90 3RF metoprolol tartrate 100 mg tablet 100 mg PO Q12H Qty: 180 3RF ranolazine 500 mg tablet extended release 12 hr 500 mg PO BID Qty: 180 3RF empagliflozin 25 mg tablet 25 mg PO QAM Qty: 30 5RF mirabegron [Myrbetriq] 25 mg tablet extended release 24 hr 25 mg PO QAM Qty: 90 1RF pantoprazole [Protonix] 40 mg tablet,delayed release (DR/EC) 40 mg PO BID Qty: 180 3RF metformin 1,000 mg tablet 1,000 mg PO BID Qty: 180 3RF tamsulosin 0.4 mg capsule 0.4 mg PO QAM Qty: 90 3RF ropinirole 1 mg tablet 1 mg PO BID Qty: 180 1RF isosorbide mononitrate 60 mg tablet extended release 24 hr 30 mg PO QAM Qty: 90 3RF ferrous sulfate 324 mg (65 mg iron) tablet,delayed release (DR/EC) 324 mg PO DAILY Qty: 30 2RF memantine 10 mg tablet 10 mg PO BID Qty: 180 0RF loratadine [Claritin] 10 mg tablet 10 mg PO QAM Qty: 90 magnesium oxide 400 mg (241.3 mg magnesium) tablet 400 mg PO BID multivitamin [Multiple Vitamins] tablet 1 tab PO QAM (DME) CPAP Supplies Misc See Rx Instructions .MEDSUPPLY Qty: 1 0RF Rx Instructions: Please provide with new supplies. Headgear, mask, tubing and filters as appropriate. albuterol sulfate 90 mcg/actuation HFA aerosol inhaler 2 inh inhalation Q6H PRN (Reason: shortness of breath or wheezing) Qty: 18 5RF diclofenac sodium 1 % gel 2 g topical QID PRN (Reason: pain, moderate) Qty: 100 2RF nitroglycerin 0.4 mg tablet, sublingual 0.4 mg sublingual Q5M PRN (Reason: chest pain) Qty: 30 0RF Rx Instructions: until response; do not exceed 3 doses per episode donepezil 5 mg tablet 5 mg PO HS Qty: 30 5RF oxcarbazepine 300 mg tablet 450 mg PO QAM Qty: 135 3RF (DME) FreeStyle Zhane 3 [place] Misc See Rx Instructions .Route Qty: 1 0RF Rx Instructions: As directed (DME) FreeStyle Zhane 3 Sensor Device See Rx Instructions .Route Qty: 1 5RF Rx Instructions: As directed lisinopril 5 mg tablet 5 mg PO QAM Qty: 90 3RF atorvastatin 40 mg tablet 40 mg PO QPM Qty: 90 3RF cyanocobalamin (vitamin B-12) 1,000 mcg Tablet 1,000 mcg PO BID cholecalciferol (vitamin D3) [Vitamin D3] 25 mcg (1,000 unit) Capsule 25 mcg PO BID potassium gluconate 595 mg (99 mg) Tablet 595 mg PO QAM ascorbic acid (vitamin C) 100 mg tablet 100 mg PO QAM Probiotic 3 billion cell capsule 3,000 mmu cells PO QAM prednisone 5 mg tablet 5 mg PO QAM methotrexate sodium 2.5 mg tablet 15 mg PO WK Rx Instructions: take 6 tablets weekly- WED[place] folic acid 1 mg tablet 1 mg PO QAM aspirin [Adult Aspirin Regimen] 81 mg tablet,delayed release (DR/EC) 81 mg PO BID Qty: 84 0RF montelukast 10 mg tablet 10 mg PO HS furosemide 20 mg tablet 20 mg PO UD PRN (Reason: weight gain 2-3 pounds in 1 day.) Rx Instructions: TAKE 1 TABLET BY MOUTH EVERY DAY IN THE MORNING PRN; umeclidinium-vilanterol [Anoro Ellipta] 62.5-25 mcg/actuation blister with device 1 inh inhalation QAM amoxicillin 500 mg tablet 2,000 mg PO DIRECTED PRN (Reason: 1 HR PRIOR TO DENTAL PROCEDURES) Rx Instructions: take 30 - 60 minutes prior to dental procedure. 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
[2025-10-18 19:15] LABS: Hematocrit (blood only) 30.7 % (42.0-52.0); Hemoglobin 9.5 g/dL (14.0-18.0); Immature Granulocytes # (auto) 0.06 K/uL (0.01-0.20); Immature Granulocytes % (auto) 0.7 %; Mean Corpuscular Hemoglobin 30.8 pg (25.0-34.0); Mean Corpuscular Volume 99.7 fL (80.0-100.0); Platelet Count 202 K/uL (130-400); RDW Standard Deviation 80.2 fL (36.4-46.3); Red Blood Count 3.08 M/uL (4.70-6.10); White Blood Count 8.06 K/ul (4.8-10.8)
[2025-10-18 19:35] LABS: Anisocytosis Present; Ovalocytes 1+
[2025-10-18 19:42] LABS: Alanine Aminotransferase 19.0 U/L (7-52); Albumin Globulin Ratio 1.0 (0.9-2); Albumin Level 3.5 gm/dl (3.4-5.0); Alkaline Phosphatase 56.0 U/L (34-104); Anion Gap 14.0 (3-11); Bilirubin,Total 0.4 mg/dl (0.2-1.0); Blood Urea Nitrogen 48.0 mg/dl (6-23); Calcium 8.4 mg/dl (8.6-10.3); Carbon Dioxide 14.0 mmol/L (21-32); Chloride 111.0 mmol/L (98-107); Creatinine Clr Calc Pharmacy 13.3 ml/min; Globulin 3.5 gm/dl (2.5-4.0); Glucose 124.0 mg/dl (70-99(Fasting)); Magnesium 2.3 mg/dl (1.7-2.4); Potassium 3.9 mmol/L (3.5-5.1); Sodium 139.0 mmol/L (136-145); Total Protein 7.0 gm/dl (6.0-8.3)
[2025-10-18 19:52] LABS: Thyroid Stimulating Hormone 1.014 uIu/ml (0.300-4.500)
--- NOTE | 2025-10-18 20:14 | XRay Report ---
INDICATION: Pain TECHNIQUE: 3 views of the lumbosacral spine were obtained. COMPARISON: Lumbosacral spine radiographs 2021 FINDINGS: No significant vertebral body height loss. Grade 1 anterolistheses of L3 on L4 and L4 on L5. Multilevel degenerative changes of the lumbar spine characterized by disc space loss, endplate changes of the vertebral bodies with small marginal osteophyte formation and bilateral facet arthropathy resulting in neural foraminal narrowing that is most progressed at L4-S1. IMPRESSION: No displaced acute osseous process is identified. Multilevel degenerative changes as above Electronically signed by Trey Larry 10-18-2025 8:14 PM
--- NOTE | 2025-10-18 20:15 | XRay Report ---
INDICATION: Pain TECHNIQUE: Frontal pelvis and 2 views of the left hip were obtained. COMPARISON: None FINDINGS: No displaced acute osseous process is identified. Mild osteoarthritis of the left hip joint. IMPRESSION: No displaced acute osseous process is identified. Mild osteoarthritis of the left hip joint. Electronically signed by Trey Larry 10-18-2025 8:14 PM
[2025-10-18] MEDS: SODIUM CHLORIDE 0.9% 1,000 ML IV ONE (20:27)
[2025-10-18] MEDS: SODIUM CHLORIDE 0.9% 500 ML IV ONE (20:27)
--- NOTE | 2025-10-18 20:41 | XRay Report ---
Single frontal view of the chest Comparison made to prior exam dated 10/14/2023 Impression Cardiomegaly. Bilateral pleural effusions. Electronically signed by Jagdish Flowers 10-18-2025 8:40 PM
--- NOTE | 2025-10-18 21:17 | History & Physical Report ---
Date of Service October 18, 2025 Assessment & Plan (1) Acute renal failure (ARF): (2) UTI (urinary tract infection): (3) Frequent falls: (4) Type 2 diabetes mellitus: Plan 80-year-old male PMHx T2DM, RA on hydroxychloroquine, COPD, CHF, HTN, HLD, and anemia presenting for multiple falls over the past week. His evaluation is without obvious infection, he does have baseline anemia. Creatinine is elevated significantly to 4.86, currently pending his urinalysis and abdominal imaging. Patient with multiple falls, pending official read of the head CT. No gross cardiac abnormalities at present. Admission for COLUMBA and recurrent falls. #COLUMBA/UTI/CKD Stage III A1 H/o CKD, attributed to arterionephrosclerosis NSAID use, follows with nephrology. Prior renal US with cortical atrophy; Not eating well over the past few days; Likely secondary to renal hypoperfusion, also in setting of UTI, cystitis noted CT. No prior pseudomonas. Received 1.5 L NSS in ED. Does have some changes to mentation, likely 2/2 to COLUMBA/UTI. Will continue to manage with IVF + abx, and if mentation does not improve, will repeat head CT or obtain MRI (pt with knee replacement). - Cr 4.86, BUN 48 - BMP am - UA suspicious for infection; pending cx - PVR pending; bladder scan prn - CTAP ? cystitis, no other acute findings - Avoid nephrotoxic agents - lisinopril, lasix held at admission - IVF LR 1L bolus then @ 100 mL/hr - Ceftriaxone IV #Frequent falls Prior history of falls, history of Alzheimer. Family reports he does not use his walker/cane, sometimes shuffling then falling; no symptoms prior to. - CBC anemia (near baseline); CMP AG 14, BUN 48, Cr 4.86 - BMP am - Trop 9.4; EKG NSR @ 77 bpm - Fall precautions - Head CT stable age related findings, no acute infarct/bleed/abnormality - PT/OT ordered -- appreciate assistance #T2DM H/o DMT2; at home regimen includes Jardiance, metformin. - Glucose at admission 124; Most recent A1C 07/2024 @ 7.8% - Hold home regimen - SSI with target BSG range 110-140mg/dL, CF 45, carb ratio 15 - BSG ACHS - Adjust regimen as needed #RA- Dx 1980; Plaquenil, prednisone 5mg, Methotrexate weekly (last dose 10/13, every Saturday)- continue Plaquenil; added Hydrocortisone 100mg IV x 1 at admission, consider additional IV dosing/ ? double dose prednisone #Anemia- Prior h/o, with vitamin B12 def.; H/H 9.5/30.7 at admission; Vitamin B12 BID, ferrous sulfate, folic acid - CBC am, continue medications #COPD- Anoro Ellipta, Combivent, albuterol neb, Ventolin; follows with pulmonology - continue #HF- Echo 08/2025 EF 55-60%; Furosemide prn - hold lasix at admission #HTN- Metoprolol, isosorbide mono, lisinopril, ranazoline CP - continue all except lisinopril #HLD- Atorvastatin - continue #Psych/Alzheimer's disease- Escitalopram, memantine, donepezil, oxcarbazepine - continue #Urge incontinence/BPH- Mirabegron, tamsulosin - continue #GERD- Pantoprazole - continue #RLS- Ropinirole - continue #ENDY- CPAP HS - continue #BPH- Tamsulosin - continue Dispo: Admit, med/tele VTE Prophylaxis: SCDs This document was dictated utilizing [employer]. Please excuse any grammatical errors that may be secondary to use of this software. Admission and Anticipated Discharge Date Admission Date: 10/18/2025 History of Present Illness Chief Complaint: Fall Primary Care Provider: Oscar Sullivan, 80-year-old male PMHx T2DM, RA on hydroxychloroquine, COPD, CHF, HTN, HLD, and anemia presenting for multiple falls over the past week. Pt's daughter + help to provide a history. Report that the patient does have frequent falls, but that over the past week he has had ~ 6 falls. Sometimes he will fall straight forward or straight backwards, other times he seems to "crumble" to the group. He is to be using a walker or cane and does not often utilize this. Family reports no head injury. He is not on AC. His family noted that on the day of arrival the patient was making less sense, saying his words were not clear. He has reportedly been having some hallucinations as well, seeing people or things that others do not. His daughter states that earlier the day of arrival, after the patient had fallen to the floor and she was talking with him, he was mentioning seeing ants and a glass of water that was suddenly moved, but the daughter said was never there in the first place. He has been "less coherent" on the day of arrival. Pt is sleeping during initial interview, but easy to wake. When awoken, he states "things hurt" but does not specify. He says no to chest pain or SOB. His family has not noticed any abnormalities to his urinary habits, no fevers/chills, and no other infectious symptoms (URI, cough). ED evaluation reveals CBC without leukocytosis or leukopenia, H&H 9.5/30.7; CMP AG 14, CO2 14, chloride 111 BUN 40, creatinine 4.86; calcium 8.4; troponin 9.4; TSH 1.014; CXR cardiomegaly, bilateral pleural effusions; hip and pelvis XR (L hip) no displaced acute osseous process, mild OA of L hip joint; lumbar spine XR no displaced osseous process, multilevel degenerative changes; CTAP pending official read; head CT pending official read; EKG NSR, low voltage QRS at 77 bpm.; Provided with 1.5 L NSS in ED. Please see Dr. Lewis's attestation for adjustments/additions to treatment plan. Allergies Allergy/AdvReac Type Severity Reaction Status Date / Time auranofin Allergy Severe Dyspnea Verified 10/18/25 20:33 Gold Salts Allergy Intermediate Hives Verified 10/18/25 20:33 Home Medications Medication Instructions Recorded Confirmed Type multivitamin (Multiple Vitamins 1 tab PO QAM 06/19/19 10/18/25 History tablet) loratadine 10 mg tablet (Claritin) 10 mg PO QAM #90 tabs 07/09/19 10/18/25 Histo ry cholecalciferol (vitamin D3) 25 25 mcg PO BID 12/12/19 10/18/25 History mcg (1,000 unit) capsule (Vitamin D3) cyanocobalamin (vitamin B-12) 1,000 mcg PO BID 12/12/19 10/18/25 History 1,000 mcg tablet potassium gluconate 595 mg (99 mg) 595 mg PO QAM 12/12/19 10/18/25 History tablet CPAP Supplies #1 ea 03/16/21 08/24/25 Rx prednisone 5 mg tablet 5 mg PO QAM 03/31/21 10/18/25 History ascorbic acid (vitamin C) 100 mg 100 mg PO QAM 05/10/21 10/18/25 History tablet lactobacillus combination no.4 3 3,000 mmu cells PO QAM 05/10/21 10/18/25 History billion cell capsule (Probiotic) folic acid 1 mg tablet 1 mg PO QAM 03/12/22 10/18/25 History methotrexate sodium 2.5 mg tablet 15 mg PO WK 03/12/22 10/18/25 History magnesium oxide 400 mg (241.3 mg 400 mg PO BID 03/23/22 10/18/25 History magnesium) tablet albuterol sulfate 90 mcg/actuation 2 inh inhalation Q6H PRN shortness 08/03/22 10/18/25 Rx aerosol inhaler of breath or wheezing #18 grams aspirin 81 mg tablet,delayed 81 mg PO BID #84 tabs 03/30/23 10/18/25 Rx release (Adult Aspirin Regimen) diclofenac sodium 1 % topical gel 2 g topical QID PRN pain, moderate 08/09/23 10/18/25 Rx #100 grams nitroglycerin 0.4 mg sublingual 0.4 mg sublingual Q5M PRN chest 03/26/24 10/18/25 Rx tablet pain #30 tabs blood-glucose sensor (FreeStyle #1 ea 02/11/25 08/24/25 Rx Zhane 3 Sensor device) blood-glucose,green hide inspector,cont #1 ea 02/11/25 08/24/25 Rx (FreeStyle Zhane 3 [place]) lisinopril 5 mg tablet 5 mg PO QAM #90 tabs 02/11/25 10/18/25 Rx furosemide 20 mg tablet 20 mg PO UD PRN weight gain 2-3 02/22/25 10/18/25 History pounds in 1 day. montelukast 10 mg tablet 10 mg PO HS 02/22/25 10/18/25 History umeclidinium 62.5 mcg-vilanterol 1 inh inhalation QAM 02/22/25 10/18/25 History 25 mcg/actuation powdr for inhalation (Anoro Ellipta) escitalopram oxalate 20 mg tablet 20 mg PO QAM Depression #90 tabs 04/05/25 10/18/25 Rx (Lexapro) metoprolol tartrate 100 mg tablet 100 mg PO Q12H #180 tabs 04/27/25 10/18/25 Rx ranolazine 500 mg tablet,extended 500 mg PO BID #180 tabs 04/27/25 10/18/25 Rx release,12 hr empagliflozin 25 mg tablet 25 mg PO QAM #30 tabs 06/02/25 10/18/25 Rx mirabegron 25 mg tablet,extended 25 mg PO QAM #90 tabs 06/18/25 10/18/25 Rx release 24 hr (Myrbetriq) metformin 1,000 mg tablet 1,000 mg PO BID #180 tabs 07/29/25 10/18/25 Rx pantoprazole 40 mg tablet,delayed 40 mg PO BID #180 tabs 07/29/25 10/18/25 Rx release (Protonix) ropinirole 1 mg tablet 1 mg PO BID #180 tabs 07/29/25 10/18/25 Rx tamsulosin 0.4 mg capsule 0.4 mg PO QAM #90 caps 07/29/25 10/18/25 Rx isosorbide mononitrate 60 mg 30 mg (1/2 x 60 mg) PO QAM #90 tabs 08/02/25 10/18/25 Rx tablet,extended release 24 hr ferrous sulfate 324 mg (65 mg 324 mg PO DAILY #30 tabs 08/17/25 10/18/25 Rx iron) tablet,delayed release atorvastatin 40 mg tablet 40 mg PO QPM #90 tabs 08/24/25 10/18/25 Rx memantine 10 mg tablet 10 mg PO BID #180 tabs 10/06/25 10/18/25 Rx donepezil 5 mg tablet 5 mg PO HS #30 tabs 10/13/25 10/18/25 Rx oxcarbazepine 300 mg tablet 450 mg (1.5 x 300 mg) PO QAM #135 10/13/25 10/18/25 Rx tabs amoxicillin 500 mg tablet 2,000 mg PO DIRECTED PRN 1 HR 10/18/25 10/18/25 History PRIOR TO DENTAL PROCEDURES Past Med/Surg History Problem List (Updated 10/19/25 @ 17:56 by Butch Garcia DO) Metabolic acidosis Acute kidney injury UTI (urinary tract infection) Frequent falls (Acute) Acute dehydration (Acute) Lewy body dementia (Acute) Impaired gait Urge incontinence Exertional chest pain Status post left knee replacement Elevated lactic acid level (Acute) Presence of drug-eluting stent in right coronary artery Rheumatoid arthritis Follows with Dr. Brewer S/P [facility] 12/2019 Dementia CAD (coronary artery disease) Type 2 diabetes mellitus Chest pain, exertional Generalized weakness (Acute) Chronic low back pain Venous insufficiency (Acute) Tubular adenoma of colon (Acute) Restrictive lung disease (Acute) Restless legs (Acute) Peptic ulcer (Acute) HX Osteoarthritis of knee (Acute) Obstructive sleep apnea (Acute) no device using>sleep test apt 11/26/23 Obesity (Acute) PRITCHETT (nonalcoholic steatohepatitis) (Acute) Multiple pulmonary nodules (Chronic) monitoring Mediastinal adenopathy (Chronic) Lumbar radiculopathy (Acute) Low vitamin B12 level (Acute) parts interpreter current use of systemic steroids (Chronic) Laryngopharyngeal reflux (Acute) Inhibited sexual excitement (Acute) Hyperlipidemia (Acute) Hiatal hernia (Acute) Hearing difficulty (Acute) Generalized osteoarthritis of multiple sites (Acute) GERD without esophagitis (Acute) Former smoker (Chronic) Essential hypertension (Acute) Edema of both legs (Acute) Disc degeneration, lumbar (Acute) Difficulty reading due to visual problem (Acute) Diabetic peripheral neuropathy (Acute) Depression (Acute) Cognitive disorder (Acute) CKD (chronic kidney disease) (Acute) Follows with Dr. Garcia Anemia (Acute) Alzheimer's disease (Acute) Allergic rhinitis (Acute) Hypoxia COPD (chronic obstructive pulmonary disease) Medical History PRITCHETT (nonalcoholic steatohepatitis) hx Venous insufficiency Urge incontinence Hx of colonic polyps Rheumatoid arthritis Restless leg syndrome ENDY (obstructive sleep apnea) CPAP Multiple pulmonary nodules monitoring Impaired gait hx, cane prn Hyperlipidemia GERD without esophagitis Generalized weakness Essential hypertension Diabetes mellitus, type 2 NIDDM Diabetic peripheral neuropathy Dementia CKD (chronic kidney disease) f/u dr. garcia Chronic low back pain Allergic rhinitis Alzheimers disease Severe aortic stenosis History of recent fall seen in [place] ED recently for fall>apt today with [facility] Barclay resolved Hx of peptic ulcer "years ago" Anxiety and depression Chronic anemia CAD (coronary artery disease) Stent x1 (2019) History of COVID-19 06/2021- fatigue, headache, hospitalized overnight>resolved Short-term memory loss Hiatal hernia Chronic obstructive pulmonary disease History of congestive heart failure f/u vandana davey cardio Aortic stenosis s/p AVR (12/2019), properly functioning bioprosthetic aortic valve per 04/[address] Davey Actinic keratosis Surgical History Hx of heart artery stent 2019, x1, [facility] Hx of cataract extraction rt/lt S/P TAVR (transcatheter aortic valve replacement) 2019- [facility] History of foot surgery CYSTS REMOVED-LEFT History of total knee replacement rt/left S/P cardiac catheterization Stent x1 (2019) Hx of appendectomy H/O colonoscopy 2020 History of total knee arthroplasty duplicate Family History Mother Diabetes Coronary heart disease Hypertension Brother Hypertension Sister Hypertension Father Hypertension Denies family history of Ovarian cancer Prostate cancer Myocardial infarction Breast cancer Colorectal cancer Social History Smoking Status: Former smoker Tobacco Type: Cigarettes Age Started Using Tobacco: 19; Age Quit Using Tobacco: 31; packs per day: 1.5; Cigarettes Per Day: Quit 1975; Smoking End Date: 1975; Second Hand Exposure: No; Do You Dip or Chew Tobacco: No; Hx Alcohol Use: No Hx Substance Use: No Preferred Language: Thai Communication Ability: Impaired Visual Impairment: Limited Hearing Ability: Hard of Hearing 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: No Beliefs That Will Affect Care: None marital status: Current Living Situation: Spouse and Family Current Living Situation Comment: home with family current occupational status: retired How many Children do You have: 2 Other Information That Helps Us Care for You: No Feels Safe at Home: Yes Safety Concerns: Feels Safe At This Time Childhood Exposure to Second-Hand Smoke: Yes Diet: regular caffeine: Yes during the past year weight has: remained stable Dental Care, Regularly: Yes Physical Activity Frequency: Does not Exercise Seatbelt Use: always Sunscreen Use: No Assistive Devices: Cane Review of Systems Review of Systems: All systems reviewed & are unremarkable except as noted in Subjective Physical Exam Physical Exam: General: Sleeping; No acute distress Skin: Warm and dry Head: Normocephalic, atraumatic Eyes: PERRL, conjunctivae clear, sclera non-icteric ENT: External ear and ear canal without swelling; nose atraumatic; good dentition, tongue normal appearance, pharynx normal, lips dry Neck: Supple, no LAD Cardio: RRR, no M/G/R, S1 and S2 normal Resp: No respiratory distress, Lungs CTA in all lobes bilaterally, no wheezes, rales, or rhonchi Abdomen: Soft, symmetric, nontender; No masses or hepatosplenomegaly; Bowel sounds normoactive MSK: No deformities; pulses palpable and equal; no edema. Neuro: Awake, alert; Sensation intact bilaterally; CN grossly intact Psych: Appropriate mood, easy to wake. + daughter present in room at time of visit. Results & Data Results & Data Vital Signs (Past 12 Hours) Vital Signs Temp Pulse Resp BP Pulse Ox O2 Del Method 10/18/25 19:30 72 24 110/51 L 92 Room Air 10/18/25 19:12 76 19 115/63 92 Room Air 10/18/25 18:31 78 10/18/25 18:30 78 21 141/65 H 10/18/25 18:24 36.6 C 78 22 156/70 H 93 Room Air Laboratory Results 10/18/25 18:20 WBC 8.06 RBC 3.08 L Hgb 9.5 L Hct 30.7 L MCV 99.7 MCH 30.8 MCHC 30.9 L RDW Std Deviation 80.2 H RDW Coeff of Farideh 22.1 H Plt Count 202 MPV 9.9 Immature Gran % (Auto) 0.7 Neut % (Auto) 79.0 Lymph % (Auto) 14.1 Johnston % (Auto) 5.1 Eos % (Auto) 0.7 Baso % (Auto) 0.4 Neut # (Auto) 6.36 Lymph # (Auto) 1.14 L Johnston # (Auto) 0.41 Eos # (Auto) 0.06 Baso # (Auto) 0.03 Immature Gran # (Auto) 0.06 Absolute Nucleated RBC 0.03 Nucleated RBC % (auto) 0.4 Anisocytosis Present Ovalocytes 1+ Echinocytes 1+ Sodium 139 Potassium 3.9 Chloride 111 H Carbon Dioxide 14 L Anion Gap 14 H BUN 48 H Creatinine 4.86 H* Est Cr Clr Drug Dosing 13.3 eGFR 11.41 BUN/Creatinine Ratio 9.9 L Glucose 124 H Calcium 8.4 L Magnesium 2.3 Total Bilirubin 0.4 AST 15 ALT 19 Alkaline Phosphatase 56 Troponin I High Sens 9.4 Total Protein 7.0 Albumin 3.5 Globulin 3.5 Albumin/Globulin Ratio 1.0 TSH 1.014 Diagnostic Findings Chest X-Ray 10/18/25 18:24 Single frontal view of the chest Comparison made to prior exam dated 10/14/2023 Impression Cardiomegaly. Bilateral pleural effusions. Electronically signed by Jagdish Flowers 10-18-2025 8:40 PM Hip/Pelvis X-Ray 10/18/25 18:24 INDICATION: Pain TECHNIQUE: Frontal pelvis and 2 views of the left hip were obtained. COMPARISON: None FINDINGS: No displaced acute osseous process is identified. Mild osteoarthritis of the left hip joint. IMPRESSION: No displaced acute osseous process is identified. Mild osteoarthritis of the left hip joint. Electronically signed by Trey Larry 10-18-2025 8:14 PM Lumbar Spine X-Ray 10/18/25 18:24 INDICATION: Pain TECHNIQUE: 3 views of the lumbosacral spine were obtained. COMPARISON: Lumbosacral spine radiographs 2021 FINDINGS: No significant vertebral body height loss. Grade 1 anterolistheses of L3 on L4 and L4 on L5. Multilevel degenerative changes of the lumbar spine characterized by disc space loss, endplate changes of the vertebral bodies with small marginal osteophyte formation and bilateral facet arthropathy resulting in neural foraminal narrowing that is most progressed at L4-S1. IMPRESSION: No displaced acute osseous process is identified. Multilevel degenerative changes as above Electronically signed by Trey aLrry 10-18-2025 8:14 PM Medications Administered 1.5L NSS ECG Additional Comments: NSR, low voltage QRS 77 bpm, OR 178, QRS 86, QT/QTc 420/475, PRT 52/53/77 Code Status & VTE Plan Code Status DNR/DNI Supervising Physician Co-Signing Physician Notes Attending addendum: I have physically seen this patient, have supervised the TEDDY's activities, and agree with the H&P unless as otherwise noted. Assessment and Plan: The patient is an 80-year-old male with past medical history including diabetes mellitus type 2, rheumatoid arthritis on hydroxychloroquine, COPD, CHF, hypertension, hyperlipidemia, and chronic anemia. Who presents to the emergency department with family concerns regarding multiple falls over the past week, numbering at least 6. Imaging studies included normal CT scan of head and abdomen pelvis. Patient appeared dehydrated, and creatinine was elevated at 4.86. He did report left hip pain, and bilateral knee pain, with normal x-rays in the ED. He was referred for evaluation for admission to [facility]. COLUMBA superimposed on CKD stage IIIa 1- Creatinine 4.86 on admission, with base 1.36 From the ED he received a total of 1500 mL of normal saline. Continue IV fluid rehydration with normal saline 1 L bolus, then maintenance fluids at 100 mL/h. Repeat laboratories in the a.m. Follow urine culture and sensitivity CT abdomen pelvis questions possible cystitis Empiric ceftriaxone 2 g IV every 24 hours Frequent falls- Differential including but not limited to: Anemia, dehydration, uremic encephalopathy, progression of RA, adrenal insufficiency, others. Fall precautions CT head stable age-related findings no acute infarct. Placed on stress dose hydrocortisone 100 mg IV now Consult PT/OT when more alert. Rheumatoid arthritis- Continue hydroxychloroquine Oral prednisone will temporarily be replaced by IV hydrocortisone this evening, then consider tenets of IV stress testing or doubling oral prednisone dose from 5 to 10 mg COPD- Continue usual inhalers Anoro Ellipta, Combivent, albuterol nebulizers, and Ventolin Hypertension/CHF- Most recent echo 09/18 with ejection fraction 55-60% Holding Lasix due to acute dehydrated/acute kidney injury state Continue metoprolol, isosorbide mononitrate and ranolazine. Hold lisinopril due to COLUMBA Remaining orders and notations as noted PG Care Time/CCT Total # of Minutes Spent Total Time Spent with Patient: Total time spent is greater than 50% in coordination of care (as documented) at patient's floor/unit and/or counseling patient: Coding Level of Care Code 43001 INT INP/OBS CARE 3/75MIN Diagnoses Acute renal failure (ARF) N17.9 Acute renal failure type: unspecified UTI (urinary tract infection) N39.0 Frequent falls R29.6 Type 2 diabetes mellitus E11.9 (1) Acute renal failure (ARF) Acute renal failure type: unspecified Qualified Code(s): N17.9 - Acute kidney failure, unspecified
--- NOTE | 2025-10-18 21:47 | CT Scan Report ---
Exam(s): CT HEAD Without Contrast EXAM: CT Head Without Intravenous Contrast CLINICAL HISTORY: Reason for exam: falls. TECHNIQUE: Axial computed tomography images of the head/brain without intravenous contrast. Automated exposure control was utilized for the study. A dose lowering technique was utilized adhering to the principles of ALARA. Mild motion artifact. COMPARISON: Head CT 10/14/2023 and MRI brain 10/16/2024. FINDINGS: Brain: No mass, edema, mass effect or acute infarct. No acute hemorrhage. Mild atrophy and chronic, nonspecific white matter disease, stable. Ventricles: No hydrocephalus or midline shift. Bones/joints: No skull fracture. Soft tissues: No scalp hematoma. Visualized Sinuses: Clear. Mastoid air cells: Stable, mild right mastoid effusion. IMPRESSION: 1. Stable age-related findings. 2. No acute infarct, bleed, acute intracranial abnormality, or interval change. Electronically signed by: Stephanie Farooq M.D. 10/18/25 21:46 PM
--- NOTE | 2025-10-18 22:02 | CT Scan Report ---
Exam(s): CT ABDOMEN + PELVIS Without Contrast EXAM: CT Abdomen and Pelvis Without Intravenous Contrast CLINICAL HISTORY: Reason for exam: ARF. TECHNIQUE: Axial computed tomography images of the abdomen and pelvis without intravenous contrast. Automated exposure control was utilized for the study. A dose lowering technique was utilized adhering to the principles of ALARA. Mild artifact from breathing, body habitus and bilateral arms in the field of view. COMPARISON: CT abdomen pelvis 03/12/2022. FINDINGS: Lung bases: Moderate cardiomegaly and vascular prominence, may relate to low lung volumes, can not rule out acute CHF or pneumonia. Liver: Scattered granulomata. Gallbladder and bile ducts: Cholelithiasis without acute cholecystitis, stable. No ductal dilation. Pancreas: No ductal dilation, or acute pancreatitis. Spleen: Scattered granulomata, stable. Adrenals: Unremarkable. Kidneys and ureters: Multiple bilateral renal cysts, largest left lower pole anteriorly, has slightly increased in size, now 6.1 cm, previously 5.4 cm. No stone or hydronephrosis. Stomach and bowel: No obstruction. Appendix: No acute appendicitis. Intraperitoneal space: No free air or fluid. Bones/joints: No acute fracture. Soft tissues: Unremarkable. Vasculature: No aortic aneurysm. Lymph nodes: No enlarged lymph nodes. Bladder: Mild wall thickening may be artifact from underdistention, mild cystitis. Reproductive: Unremarkable as visualized. IMPRESSION: 1. Question cystitis. 2. No other/definite acute intra-abdominal or intrapelvic abnormality, and no significant interval change. Electronically signed by: Stephanie Farooq M.D. 10/18/25 22:02 PM
[2025-10-18] MEDS: HYDROCORTISONE SOD SUCCINATE 100 MG/2 ML VIAL IV STA (22:37)
[2025-10-18] MEDS: LACTATED RINGER'S 1,000 ML IV ONE (22:39)
[2025-10-18] MEDS ORDERED: ACETAMINOPHEN 325 MG TAB PO PRN (23:48)
[2025-10-18] MEDS ORDERED: ONDANSETRON INJ 2 MG/ML 2 ML VIAL IV PRN (23:48)
[2025-10-19] MEDS: LACTATED RINGER'S 1,000 ML IV SCH (00:07)
[2025-10-19] MEDS ORDERED: ALBUTEROL HFA 8 GM INHALER INH PRN (00:10)
[2025-10-19] MEDS ORDERED: DEXTROSE 50% 50 ML SYRINGE IV PRN (00:15)
[2025-10-19] MEDS ORDERED: GLUCOSE 40% GEL 15 GM TUBE PO PRN (00:15)
[2025-10-19] MEDS ORDERED: GLUCAGON FOR INJ 1 MG VIAL SQ PRN (00:15)
[2025-10-19] MEDS ORDERED: CARBOHYDRATES FOR HYPOGLYCEMIA PO PRN (00:15)
[2025-10-19] MEDS ORDERED: GLUCOSE 10 TAB/TUBE PO PRN (00:15)
[2025-10-19 00:45] LABS: Appearance Urine Cloudy (Clear); Bacteria Urine Automated 4+ (None Seen); Epithelial Cell Urine Auto 0-2 /hpf (0-2); Glucose Urine UA 3+ (Negative); RBC Urine Automated 0-2 /hpf (0-2); WBC Urine Automated >50 /hpf (0-5)
[2025-10-19] MEDS: cefTRIAXone SODIUM 2,000 MG/50 ML BAG IV SCH (01:44)
[2025-10-19] MEDS: METOPROLOL TARTRATE 100 MG TAB PO SCH (01:44)
[2025-10-19 06:48] LABS: Hematocrit (blood only) 31.3 % (42.0-52.0); Hemoglobin 9.7 g/dL (14.0-18.0); Mean Corpuscular Hemoglobin 30.6 pg (25.0-34.0); Mean Corpuscular Volume 98.7 fL (80.0-100.0); Platelet Count 181 K/uL (130-400); RDW Standard Deviation 79.9 fL (36.4-46.3); Red Blood Count 3.17 M/uL (4.70-6.10); White Blood Count 6.34 K/ul (4.8-10.8)
[2025-10-19 07:15] LABS: Anion Gap 10.0 (3-11); Blood Urea Nitrogen 49.0 mg/dl (6-23); Calcium 8.3 mg/dl (8.6-10.3); Carbon Dioxide 17.0 mmol/L (21-32); Chloride 112.0 mmol/L (98-107); Creatinine Clr Calc Pharmacy 15.1 ml/min; Glucose 184.0 mg/dl (70-99(Fasting)); Potassium 4.2 mmol/L (3.5-5.1); Sodium 139.0 mmol/L (136-145)
--- NOTE | 2025-10-19 08:08 | Hospitalist Progress Note ---
Date of Service October 19, 2025 Assessment & Plan (1) UTI (urinary tract infection): (2) Frequent falls: (3) Type 2 diabetes mellitus: Plan 80-year-old male PMHx T2DM, RA on hydroxychloroquine, COPD, CHF, HTN, HLD, and anemia presenting for multiple falls over the past week. His evaluation is without obvious infection, he does have baseline anemia. Creatinine is elevated significantly to 4.86, currently pending his urinalysis and abdominal imaging. Patient with multiple falls, pending official read of the head CT. No gross cardiac abnormalities at present. Admission for COLUMBA and recurrent falls. #COLUMBA/UTI/CKD Stage III A1 H/o CKD, attributed to arterionephrosclerosis NSAID use, follows with nephrology. Prior renal US with cortical atrophy; Not eating well over the past few days; Likely secondary to renal hypoperfusion, also in setting of UTI, cystitis noted CT. No prior pseudomonas. Received 1.5 L NSS in ED. Does have some changes to mentation, likely 2/2 to COLUMBA/UTI. Will continue to manage with IVF + abx, and if mentation does not improve, will repeat head CT or obtain MRI (pt with knee replacement). -Cr 4.86, 4.22, 3.87 -UA suspicious for infection; prelim cx with klebsiella pneumoniae -condom catheter with favorable urine output -CTAP ? cystitis, no other acute findings -Avoid nephrotoxic agents - lisinopril, lasix held at admission -IVF repletion in ED and on admission -Ceftriaxone IV -VBGs with metabolic acidosis, sodium bicarbonate infusion -trend VBGs -nephro consult #Frequent falls Prior history of falls, history of Alzheimer. Family reports he does not use his walker/cane, sometimes shuffling then falling; no symptoms prior to. - CBC anemia (near baseline) - Fall precautions - Head CT stable age related findings, no acute infarct/bleed/abnormality - PT/OT ordered -- appreciate assistance #T2DM H/o DMT2; at home regimen includes Jardiance, metformin. - Glucose at admission 124; Most recent A1C 07/2025 @ 7.8% - Hold home regimen - SSI with target BSG range 110-140mg/dL, CF 45, carb ratio 15 - BSG ACHS - Adjust regimen as needed #RA- Dx 1980; Plaquenil, prednisone 5mg, Methotrexate weekly (last dose 11/19, every Saturday) -cont daily Prednisone #Anemia- Prior h/o, with vitamin B12 def -H/H 9.5/30.7 at admission; Vitamin B12 BID, ferrous sulfate, folic acid #COPD -Anoro Ellipta, Combivent, albuterol neb, Ventolin; follows with pulmonology - continue #HF -Echo 08/2025 EF 55-60% -Lasix held #HTN -ACEi held -Metoprolol, isosorbide mono, lisinopril, ranazoline CP #HLD -Atorvastatin ##Lewy body dementia Escitalopram, memantine, donepezil, oxcarbazepine - continue -added CK in setting of new prescribing related to donepezil to r/o rhabdo-->>CK WNL #Urge incontinence/BPH -Mirabegron, tamsulosin - continue #GERD -Pantoprazole #RLS -Ropinirole #ENDY -CPAP HS #BPH -Tamsulosin Dispo: Admit, med/tele VTE Prophylaxis: SCDs Admission and Anticipated Discharge Date Admission Date: October 18, 2025 Subjective Patient awakens to name being called. States he is in the hospital-unsure why. Able to follow simple commands with movement in all extremities. Did eat breakfast this am. Condom catheter with moderate amounts of clear, yellow urine present in tran bag. Review of Systems Review of Systems: All systems reviewed & are unremarkable except as noted in Subjective Physical Exam Physical Exam: GENERAL APPEARANCE: A&O to person and year. Lying in bed. NAD. SKIN: Normal color without rashes or lesions. Normal turgor. HEENT: Head AT/NC. Buccal mucosa is moist and pink. NECK: No jugular venous distention. No thyroid enlargement. There is no lymphadenopathy. HEART: RRR without m/g/r LUNGS: Normal inspiratory effort. CTA without w/r/r ABDOMEN: No guarding or rigidity. Normoactive BS in all four quadrants. Abdomen soft and NT. MSK: No bony gross/deformities throughout. ROM intact. EXTREMITIES: No edema, No peripheral cyanosis. Neuro: CN 2-12 grossly intact. No focal neuro deficits PSYCHIATRIC: Normal affect. Eye contact is good. Speech is normal rate and content. Responses are appropriate. Results & Data Results & Data Vital Signs (Past 12 Hours) Vital Signs Temp Pulse Pulse Resp BP BP Pulse Ox 10/19/25 07:15 63 10/19/25 04:17 36.5 C 81 18 130/72 97 10/19/25 01:42 82 127/62 10/18/25 23:56 10/18/25 23:49 36.4 C L 82 18 166/80 H 94 10/18/25 23:41 81 10/18/25 22:51 81 19 96 10/18/25 22:44 155/68 H 10/18/25 22:42 79 22 95 10/18/25 22:09 74 10/18/25 22:00 73 24 147/69 H 91 10/18/25 21:30 76 19 160/79 H 94 10/18/25 21:00 74 19 136/80 97 10/18/25 20:30 74 18 151/73 H 92 O2 Del Method 10/19/25 07:15 10/19/25 04:17 Room Air 10/19/25 01:42 10/18/25 23:56 Room Air 10/18/25 23:49 Room Air 10/18/25 23:41 10/18/25 22:51 Room Air 10/18/25 22:44 10/18/25 22:42 Room Air 10/18/25 22:09 10/18/25 22:00 Room Air 10/18/25 21:30 Room Air 10/18/25 21:00 Room Air 10/18/25 20:30 Room Air Laboratory Results Labs reviewed: CBC, BMP PG Care Time/CCT Total # of Minutes Spent Total Time Spent with Patient: Total time spent is greater than 50% in coordination of care (as documented) at patient's floor/unit and/or counseling patient: Coding Level of Care Code 95735 SUB INP/OBS CARE 3/50MIN Diagnoses UTI (urinary tract infection) N39.0 Frequent falls R29.6 Type 2 diabetes mellitus E11.9
[2025-10-19] MEDS: CYANOCOBALAMIN (B-12) 500 MCG TABLET PO SCH (08:25)
[2025-10-19] MEDS: FOLIC ACID 1 MG TAB PO SCH (08:25)
[2025-10-19] MEDS: RANOLAZINE 500 MG ER TAB PO SCH (08:25)
[2025-10-19] MEDS: ISOSORBIDE MONO EXTENDED REL 30 MG TABCR PO SCH (08:25)
[2025-10-19] MEDS: LORATADINE 10 MG TAB PO SCH (08:25)
[2025-10-19] MEDS: ESCITALOPRAM OXALATE 20 MG TAB PO SCH (08:25)
[2025-10-19] MEDS: MAGNESIUM OXIDE 400 MG TAB PO SCH (08:25)
[2025-10-19] MEDS: VIBEGRON 75 MG TAB PO SCH (08:25)
[2025-10-19] MEDS: ASPIRIN 81 MG ECTAB PO SCH (08:25)
[2025-10-19] MEDS: TAMSULOSIN HCL 0.4 MG CAP PO SCH (08:25)
[2025-10-19] MEDS: MEMANTINE HCL 10 MG TAB PO SCH (08:26)
[2025-10-19] MEDS: UMECLIDINIUM/VILANTEROL 62.5/25MCG 7 PUFFS/INHALER INH SCH (08:26)
[2025-10-19] MEDS: FERROUS SULFATE 325 MG TAB PO SCH (08:26)
[2025-10-19 08:53] LABS: Creatine Kinase 118.0 U/L (30-223)
[2025-10-19] MEDS ORDERED: NON-FORMULARY MEDICATION (Potassium Gluconate 595 mg (99 mg) Tablet) PO SCH (09:00)
[2025-10-19] MEDS: INSULIN ASPART PER UNIT CHARGE SC SCH (09:58)
--- NOTE | 2025-10-19 12:59 | Electrocardiogram Report ---
Test Reason : Blood Pressure : */* mmHG Vent. Rate : 77 BPM Atrial Rate : 77 BPM P-R Int : 178 ms QRS Dur : 86 ms QT Int : 420 ms P-R-T Axes : 52 53 77 degrees QTcB Int : 475 ms Normal sinus rhythm Low voltage QRS Borderline ECG When compared with ECG of 16-Jul-2024 10:02, (unconfirmed) No significant change was found Confirmed by Steven Chester ([id number]) on 10/19/2025 12:59:27 PM Referred By: REFERRED SELF Confirmed By: Steven Chester
[2025-10-19 13:02] LABS: Base Excess VBG -11.5 mEq/L; HCO3 VBG 14 mmol/L; Oxygen Saturation VBG 86.7 %; PCO2 VBG 29 mmHg (38-50); PO2 VBG 54 mmHg; pH VBG 7.29 (7.36-7.41)
[2025-10-19 13:31] LABS: Anion Gap 11.0 (3-11); Blood Urea Nitrogen 46.0 mg/dl (6-23); Calcium 8.0 mg/dl (8.6-10.3); Carbon Dioxide 15.0 mmol/L (21-32); Chloride 113.0 mmol/L (98-107); Creatinine Clr Calc Pharmacy 16.4 ml/min; Glucose 141.0 mg/dl (70-99(Fasting)); Potassium 3.6 mmol/L (3.5-5.1); Sodium 139.0 mmol/L (136-145)
[2025-10-19] MEDS ORDERED: STAT IV/IM STA (15:05)
[2025-10-19] MEDS: SODIUM BICARBONATE 8.4% 150 MEQ in DEXTROSE 5% 1,000 ML IV SCH (15:42)
--- NOTE | 2025-10-19 16:59 | Nephrology Consultation ---
Date of Consultation October 19, 2025 Assessment & Plan (1) Acute kidney injury: Non-oliguric. Creatinine tending down with supportive care/IV hydration. Electrolytes acceptable. Significant component of prerenal COLUMBA from dehydration. 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 CT does not demonstrate obstruction. Urine studies are notable for ketosis and cystitis. Microscopy notable for WBC and hyaline casts. HCO3 replacement is being provided for metabolic acidosis. Metformin, lisinopril, empagliflozin, and diuretics have appropriately been held. Caution is advised with Ranexa and oxcarbazepine in kidney dysfunction. Document strict I/O's. Repeat a serum metabolic profile tomorrow AM. (2) CKD (chronic kidney disease): Attributed to arterionephrosclerosis by history. Baseline creatinine 1.2-1.6 mg/dL. MACR <10-->195 mcg/mg over the past year. Hold lisinopril and empagliflozin. Outpatient follow up to be arranged at discharge. (3) Metabolic acidosis: Metformin stopped. Predominately NAGMA in the setting of COLUMBA. HCO3 replacement has been ordered. Repeat labs in the AM. (4) CAD (coronary artery disease): Caution is advised with the use of ranolazine in COLUMBA. (5) Type 2 diabetes mellitus: Metformin stopped. Empa held. (6) UTI (urinary tract infection): Culture +Klebsiella pneumonia. Remains on ceftriaxone. Management per hospitalist. History of Present Illness Reason for Consultation: COLUMBA, elevated Cr Requesting Physician: Ellis Aleman Attending Physician: Ellis Aleman History of Present Illness Kodi Arevalo is an 80 year-old male with chronic kidney disease who follows with me the [facility] in [place]. I recently saw Kodi in the clinic in July. Baseline creatinine has been ~1.2-1.6 mg/dL. MACR increased from <10-->104-->194.5 mcg/mg over the past year. Urine is acellular at baseline. CKD has been attributed to arterionephrosclerosis. Kidneys demonstrating bilateral cortical atrophy on imaging. Kodi presented to [facility] yesterday with multiple recent falls, mental status changes, and acute kidney injury. Kodi was reportedly not eating well and found to be volume depleted on admission. Creatinine has improved from 4.86-->3.87 mg/dL with IV hydration. Urine culture is growing Klebsiella pneumonia. Kodi is being treated with ceftriaxone. Medical history is notable for rheumatoid arthritis Rx methotrexate + prednisone, coronary artery disease (HFpEF), history of TAVR, diabetes mellitus II, hypertension, dementia, reported COPD, GERD, RLS, and dementia. Kodi was seen and evaluated this evening with his and daughters at the bedside. He remains confused and weak. No fevers or chills. No chest pains or palpitations. Kodi denies pain. Allergies Allergy/AdvReac Type Severity Reaction Status Date / Time auranofin Allergy Severe Dyspnea Verified 10/18/25 20:33 Gold Salts Allergy Intermediate Hives Verified 10/18/25 20:33 Home Medications Medication Instructions Recorded Confirmed Type multivitamin (Multiple Vitamins 1 tab PO QAM 06/19/19 10/18/25 History tablet) loratadine 10 mg tablet (Claritin) 10 mg PO QAM #90 tabs 07/09/19 10/18/25 History cholecalciferol (vitamin D3) 25 25 mcg PO BID 12/12/19 10/18/25 History mcg (1,000 unit) capsule (Vitamin D3) cyanocobalamin (vitamin B-12) 1,000 mcg PO BID 12/12/19 10/18/25 History 1,000 mcg tablet potassium gluconate 595 mg (99 mg) 595 mg PO QAM 12/12/19 10/18/25 History tablet CPAP Supplies #1 ea 03/16/21 08/24/25 Rx prednisone 5 mg tablet 5 mg PO QAM 03/31/21 10/18/25 History ascorbic acid (vitamin C) 100 mg 100 mg PO QAM 05/10/21 10/18/25 History tablet lactobacillus combination no.4 3 3,000 mmu cells PO QAM 05/10/21 10/18/25 History billion cell capsule (Probiotic) folic acid 1 mg tablet 1 mg PO QAM 03/12/22 10/18/25 History methotrexate sodium 2.5 mg tablet 15 mg PO WK 03/12/22 10/18/25 History magnesium oxide 400 mg (241.3 mg 400 mg PO BID 03/23/22 10/18/25 History magnesium) tablet albuterol sulfate 90 mcg/actuation 2 inh inhalation Q6H PRN shortness 08/03/22 10/18/25 Rx aerosol inhaler of breath or wheezing #18 grams aspirin 81 mg tablet,delayed 81 mg PO BID #84 tabs 05/06/23 11/24/25 Rx release (Adult Aspirin Regimen) diclofenac sodium 1 % topical gel 2 g topical QID PRN pain, moderate 08/09/23 10/18/25 Rx #100 grams nitroglycerin 0.4 mg sublingual 0.4 mg sublingual Q5M PRN chest 03/26/24 10/18/25 Rx tablet pain #30 tabs blood-glucose sensor (FreeStyle #1 ea 02/11/25 08/24/25 Rx Zhane 3 Sensor device) blood-glucose,agile business 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 montelukast 10 mg tablet 10 mg PO HS 02/22/25 10/18/25 History umeclidinium 62.5 mcg-vilanterol 1 inh inhalation QAM 02/22/25 10/18/25 History 25 mcg/actuation powdr for inhalation (Anoro Ellipta) escitalopram oxalate 20 mg tablet 20 mg PO QAM Depression #90 tabs 04/05/25 10/18/25 Rx (Lexapro) metoprolol tartrate 100 mg tablet 100 mg PO Q12H #180 tabs 04/27/25 10/18/25 Rx ranolazine 500 mg tablet,extended 500 mg PO BID #180 tabs 04/27/25 10/18/25 Rx release,12 hr empagliflozin 25 mg tablet 25 mg PO QAM #30 tabs 06/02/25 10/18/25 Rx mirabegron 25 mg tablet,extended 25 mg PO QAM #90 tabs 06/18/25 10/18/25 Rx release 24 hr (Myrbetriq) metformin 1,000 mg tablet 1,000 mg PO BID #180 tabs 07/29/25 10/18/25 Rx pantoprazole 40 mg tablet,delayed 40 mg PO BID #180 tabs 07/29/25 10/18/25 Rx release (Protonix) ropinirole 1 mg tablet 1 mg PO BID #180 tabs 07/29/25 10/18/25 Rx tamsulosin 0.4 mg capsule 0.4 mg PO QAM #90 caps 07/29/25 10/18/25 Rx isosorbide mononitrate 60 mg 30 mg (1/2 x 60 mg) PO QAM #90 tabs 08/02/25 10/18/25 Rx tablet,extended release 24 hr ferrous sulfate 324 mg (65 mg 324 mg PO DAILY #30 tabs 08/17/25 10/18/25 Rx iron) tablet,delayed release atorvastatin 40 mg tablet 40 mg PO QPM #90 tabs 08/24/25 10/18/25 Rx memantine 10 mg tablet 10 mg PO BID #180 tabs 10/06/25 10/18/25 Rx donepezil 5 mg tablet 5 mg PO HS #30 tabs 10/13/25 10/18/25 Rx oxcarbazepine 300 mg tablet 450 mg (1.5 x 300 mg) PO QAM #135 10/13/25 10/18/25 Rx tabs amoxicillin 500 mg tablet 2,000 mg PO DIRECTED PRN 1 HR 10/18/25 10/18/25 History PRIOR TO DENTAL PROCEDURES Patient History Medical History PRITCHETT (nonalcoholic steatohepatitis) hx Venous insufficiency Urge incontinence Hx of colonic polyps Rheumatoid arthritis Restless leg syndrome ENDY (obstructive sleep apnea) CPAP Multiple pulmonary nodules monitoring Impaired gait hx, cane prn Hyperlipidemia GERD without esophagitis Generalized weakness Essential hypertension Diabetes mellitus, type 2 NIDDM Diabetic peripheral neuropathy Dementia CKD (chronic kidney disease) f/u dr. dong Chronic low back pain Allergic rhinitis Alzheimers disease Severe aortic stenosis [facility] of [facility]>apt today with Cayetano Barclay resolved Hx of peptic ulcer "years ago" Anxiety and depression Chronic anemia CAD (coronary artery disease) Stent x1 (2019) History of COVID-19 06/2021- fatigue, headache, hospitalized overnight>resolved Short-term memory loss Hiatal hernia Chronic obstructive pulmonary disease History of congestive heart failure f/u vandana davey cardio Aortic stenosis s/p AVR (12/2019), properly functioning bioprosthetic aortic valve per 04/[address] Davey Actinic keratosis Surgical History Hx of heart artery stent 2020, x1, [facility] Hx of cataract extraction rt/lt S/P TAVR (transcatheter aortic valve replacement) 2019- [facility] [place] History of foot surgery CYSTS REMOVED-LEFT History of total knee replacement rt/left S/P cardiac catheterization Stent x1 (2019) Hx of appendectomy H/O colonoscopy 2020 History of total knee arthroplasty duplicate Family History Mother Diabetes Coronary heart disease Hypertension Brother Hypertension Sister Hypertension Father Hypertension Denies family history of Ovarian cancer Prostate cancer Myocardial infarction Breast cancer Colorectal cancer Social History Smoking Status: Former smoker Tobacco Type: Cigarettes Age Started Using Tobacco: 19; Age Quit Using Tobacco: 31; packs per day: 1.5; Cigarettes Per Day: Quit 1975; Smoking End Date: 1975; Second Hand Exposure: No; Do You Dip or Chew Tobacco: No; Hx Alcohol Use: No Hx Substance Use: No Preferred Language: Maori Communication Ability: Effective Visual Impairment: Limited Hearing Ability: Hard of Hearing Insights Analyst Required: No Beliefs That Will Affect Care: None marital status: Current Living Situation: Spouse and Family Current Living Situation Comment: home with family current occupational status: retired How many Children do You have: 2 Other Information That Helps Us Care for You: No Feels Safe at Home: Yes Safety Concerns: Feels Safe At This Time Childhood Exposure to Second-Hand Smoke: Yes Diet: regular caffeine: Yes during the past year weight has: remained stable Dental Care, Regularly: Yes Physical Activity Frequency: Does not Exercise Seatbelt Use: always Sunscreen Use: No Assistive Devices: Cane, CPAP and Glasses Review of Systems 2 Review of Systems: All systems reviewed & are unremarkable except as noted in HPI & below Physical Exam 2 Constitutional: well developed; no acute distress Eyes: no scleral abnormality and no corneal abnormality ENMT: Mouth: no oral mucosal abnormality and oral mucous membranes not dry Neck: normal visual inspection and trachea midline Respiratory: normal respiratory effort Auscultation: lungs clear to auscultation bilaterally Cardiovascular: Rate/Rhythm: regular rate Heart Sounds: normal S1 and normal S2 Extremities: + pedal edema Musculoskeletal: Extremities: no cyanosis and no clubbing Skin: normal turgor; no lesions Neurologic: Motor/Sensory: no tremor and no asterixis Psychiatric: Orientation: alert and oriented x 3 Genitourinary: urinary catheter with clear yellow urine Results & Data Vital Signs (Past 12 Hours) Vital Signs Temp Pulse Pulse Resp BP Pulse Ox O2 Del Method 10/19/25 15:29 36.7 C 67 20 114/59 L 93 Room Air 10/19/25 11:17 36.6 C 68 18 94 Room Air 10/19/25 08:04 36.7 C 84 18 189/67 H 95 Room Air 10/19/25 07:15 63 Laboratory Results Laboratory Results - last 24 hr 10/18/25 10/19/25 10/19/25 18:20 00:41 05:56 WBC 8.06 6.34 RBC 3.08 L 3.17 L Hgb 9.5 L 9.7 L Hct 30.7 L 31.3 L MCV 99.7 98.7 MCH 30.8 30.6 MCHC 30.9 L 31.0 L RDW Std Deviation 80.2 H 79.9 H RDW Coeff of Farideh 22.1 H 21.9 H Plt Count 202 181 MPV 9.9 9.9 Immature Gran % (Auto) 0.7 Neut % (Auto) 79.0 Lymph % (Auto) 14.1 [place] % (Auto) 5.1 Eos % (Auto) 0.7 Baso % (Auto) 0.4 Neut # (Auto) 6.36 Lymph # (Auto) 1.14 L [place] # (Auto) 0.41 Eos # (Auto) 0.06 Baso # (Auto) 0.03 Immature Gran # (Auto) 0.06 Absolute Nucleated RBC 0.03 0.02 Nucleated RBC % (auto) 0.4 0.3 Anisocytosis Present Ovalocytes 1+ Echinocytes 1+ VBG pH VBG pCO2 VBG pO2 VBG HCO3 VBG O2 Saturation VBG Base Excess Sodium 139 139 Potassium 3.9 4.2 Chloride 111 H 112 H Carbon Dioxide 14 L 17 L Anion Gap 14 H 10 BUN 48 H 49 H Creatinine 4.86 H* 4.22 H D Est Cr Clr Drug Dosing 13.3 15.1 eGFR 11.41 13.52 BUN/Creatinine Ratio 9.9 L 11.6 Glucose 124 H 184 H POC Glucose Calcium 8.4 L 8.3 L Phosphorus 4.4 Magnesium 2.3 Total Bilirubin 0.4 AST 15 ALT 19 Alkaline Phosphatase 56 Total Creatine Kinase 118 Troponin I High Sens 9.4 B-Natriuretic Peptide 258 H Total Protein 7.0 Albumin 3.5 Globulin 3.5 Albumin/Globulin Ratio 1.0 TSH 1.014 Urine Color Urine Appearance Urine pH Ur Specific [place] Urine Protein Urine Glucose (UA) Urine Ketones Urine Blood Urine Nitrite Urine Bilirubin Urine Urobilinogen Ur Leukocyte Esterase Urine WBC (Auto) Urine RBC (Auto) U Hyaline Cast (Auto) U Epithel Cells (Auto) Urine Bacteria (Auto) Urine Comment 10/19/25 10/19/25 10/19/25 08:42 12:21 12:55 WBC RBC Hgb Hct MCV MCH MCHC RDW Std Deviation RDW Coeff of Farideh Plt Count MPV Immature Gran % (Auto) Neut % (Auto) Lymph % (Auto) [place] % (Auto) Eos % (Auto) Baso % (Auto) Neut # (Auto) Lymph # (Auto) [place] # (Auto) Eos # (Auto) Baso # (Auto) Immature Gran # (Auto) Absolute Nucleated RBC Nucleated RBC % (auto) Anisocytosis Ovalocytes Echinocytes VBG pH 7.29 L VBG pCO2 29 L VBG pO2 54 VBG HCO3 14 VBG O2 Saturation 86.7 VBG Base Excess -11.5 Sodium 139 Potassium 3.6 Chloride 113 H Carbon Dioxide 15 L Anion Gap 11 BUN 46 H Creatinine 3.87 H D Est Cr Clr Drug Dosing 16.4 eGFR 15.00 BUN/Creatinine Ratio 11.9 Glucose 141 H POC Glucose 136 H 147 H Calcium 8.0 L Phosphorus Magnesium Total Bilirubin AST ALT Alkaline Phosphatase Total Creatine Kinase Troponin I High Sens B-Natriuretic Peptide Total Protein Albumin Globulin Albumin/Globulin Ratio TSH Urine Color Urine Appearance Urine pH Ur Specific [place] Urine Protein Urine Glucose (UA) Urine Ketones Urine Blood Urine Nitrite Urine Bilirubin Urine Urobilinogen Ur Leukocyte Esterase Urine WBC (Auto) Urine RBC (Auto) U Hyaline Cast (Auto) U Epithel Cells (Auto) Urine Bacteria (Auto) Urine Comment 10/19/25 10/19/25 10/19/25 14:18 16:51 Unknown WBC RBC Hgb Hct MCV MCH MCHC RDW Std Deviation RDW Coeff of Farideh Plt Count MPV Immature Gran % (Auto) Neut % (Auto) Lymph % (Auto) [place] % (Auto) Eos % (Auto) Baso % (Auto) Neut # (Auto) Lymph # (Auto) [place] # (Auto) Eos # (Auto) Baso # (Auto) Immature Gran # (Auto) Absolute Nucleated RBC Nucleated RBC % (auto) Anisocytosis Ovalocytes Echinocytes VBG pH VBG pCO2 VBG pO2 VBG HCO3 VBG O2 Saturation VBG Base Excess Sodium Potassium Chloride Carbon Dioxide Anion Gap BUN Creatinine Est Cr Clr Drug Dosing eGFR BUN/Creatinine Ratio Glucose POC Glucose 169 H Calcium Phosphorus Magnesium Total Bilirubin AST ALT Alkaline Phosphatase Total Creatine Kinase Troponin I High Sens B-Natriuretic Peptide Total Protein Albumin 3.2 L Globulin Albumin/Globulin Ratio TSH Urine Color Yellow Urine Appearance Cloudy A Urine pH 5.5 Ur Specific [place] 1.015 Urine Protein 3+ H Urine Glucose (UA) 3+ H Urine Ketones 2+ H Urine Blood 2+ H Urine Nitrite Negative Urine Bilirubin Negative Urine Urobilinogen Negative Ur Leukocyte Esterase Trace H Urine WBC (Auto) >50 H Urine RBC (Auto) 0-2 U Hyaline Cast (Auto) 3-5 H U Epithel Cells (Auto) 0-2 Urine Bacteria (Auto) 4+ H Urine Comment Diagnostic Findings CT Abdomen and Pelvis Without Intravenous Contrast COMPARISON: CT abdomen pelvis 03/12/2022. FINDINGS: Lung bases: Moderate cardiomegaly and vascular prominence, may relate to low lung volumes, can not rule out acute CHF or pneumonia. Liver: Scattered granulomata. Gallbladder and bile ducts: Cholelithiasis without acute cholecystitis, stable. No ductal dilation. Pancreas: No ductal dilation, or acute pancreatitis. Spleen: Scattered granulomata, stable. Adrenals: Unremarkable. Kidneys and ureters: Multiple bilateral renal cysts, largest left lower pole anteriorly, has slightly increased in size, now 6.1 cm, previously 5.4 cm. No stone or hydronephrosis. Stomach and bowel: No obstruction. Appendix: No acute appendicitis. Intraperitoneal space: No free air or fluid. Bones/joints: No acute fracture. Soft tissues: Unremarkable. Vasculature: No aortic aneurysm. Lymph nodes: No enlarged lymph nodes. Bladder: Mild wall thickening may be artifact from underdistention, mild cystitis. Reproductive: Unremarkable as visualized. IMPRESSION: 1. Question cystitis. 2. No other/definite acute intra-abdominal or intrapelvic abnormality, and no significant interval change. PG Care Time/CCT Total # of Minutes Spent Total Time Spent with Patient: Total time spent is greater than 50% in coordination of care (as documented) at patient's floor/unit and/or counseling patient: Coding Level of Care Code 35629 IN/OBS CONSULT LVL 5,80M Diagnoses Acute kidney injury N17.9 CKD (chronic kidney disease) N18.9 Metabolic acidosis E87.20 CAD (coronary artery disease) I25.10 Type 2 diabetes mellitus E11.9 UTI (urinary tract infection) N39.0
[2025-10-19] MEDS: DONEPEZIL HCL 5 MG TAB PO SCH (21:28)
[2025-10-19] MEDS: MONTELUKAST SODIUM 10 MG TABLET PO SCH (21:29)
[2025-10-19] MEDS: ATORVASTATIN 40 MG TAB PO SCH (21:31)
[2025-10-19 21:40] LABS: Base Excess VBG -8.4 mEq/L; HCO3 VBG 17 mmol/L; Oxygen Saturation VBG < 60.0 %; PCO2 VBG 35 mmHg (38-50); PO2 VBG 28 mmHg; pH VBG 7.30 (7.36-7.41)
[2025-10-20 08:59] LABS: Base Excess VBG -6.2 mEq/L; HCO3 VBG 20 mmol/L; Oxygen Saturation VBG < 60.0 %; PCO2 VBG 39 mmHg (38-50); PO2 VBG 23 mmHg; pH VBG 7.31 (7.36-7.41)
[2025-10-20 09:05] LABS: Hematocrit (blood only) 28.9 % (42.0-52.0); Hemoglobin 9.3 g/dL (14.0-18.0); Immature Granulocytes # (auto) 0.04 K/uL (0.01-0.20); Immature Granulocytes % (auto) 0.6 %; Mean Corpuscular Hemoglobin 30.7 pg (25.0-34.0); Mean Corpuscular Volume 95.4 fL (80.0-100.0); Platelet Count 149 K/uL (130-400); RDW Standard Deviation 75.9 fL (36.4-46.3); Red Blood Count 3.03 M/uL (4.70-6.10); White Blood Count 6.49 K/ul (4.8-10.8)
[2025-10-20 09:25] LABS: Alanine Aminotransferase 15.0 U/L (7-52); Albumin Globulin Ratio 1.1 (0.9-2); Albumin Level 3.6 gm/dl (3.4-5.0); Alkaline Phosphatase 53.0 U/L (34-104); Anion Gap 9.0 (3-11); Bilirubin,Total 0.3 mg/dl (0.2-1.0); Blood Urea Nitrogen 37.0 mg/dl (6-23); Calcium 7.9 mg/dl (8.6-10.3); Carbon Dioxide 21.0 mmol/L (21-32); Chloride 107.0 mmol/L (98-107); Creatinine Clr Calc Pharmacy 22.7 ml/min; Globulin 3.4 gm/dl (2.5-4.0); Glucose 113.0 mg/dl (70-99(Fasting)); Magnesium 1.9 mg/dl (1.7-2.4); Potassium 2.8 mmol/L (3.5-5.1); Sodium 137.0 mmol/L (136-145); Total Protein 7.0 gm/dl (6.0-8.3)
[2025-10-20 09:32] LABS: Anisocytosis Present
[2025-10-20] MEDS: POTASSIUM CHLORIDE / WTR 10 MEQ/100 ML PLCT IV SCH (10:02)
[2025-10-20] MEDS: POT PHOSPHATE MONOBASIC W/ SOD TAB PO SCH ×2 (12:20→20:32)
[2025-10-20] MEDS: CALCIUM CARBONATE 500 MG CHEWABLE TAB PO SCH (12:20)
[2025-10-20] MEDS: PLASMA-LYTE A 1,000 ML IV SCH (12:20)
--- NOTE | 2025-10-20 12:20 | Nephrology Progress Note ---
Date of Service October 20, 2025 Assessment & Plan (1) Acute kidney injury: Plan: Non-oliguric. Creatinine tending down with supportive care/IV hydration. Electrolytes notable for hypokalemia and hypophosphatemia. IV replacement has been ordered. Prerenal [place] from dehydration. There is no indication for [place] [employer] [place]. HCO3 improved with replacement. Metformin, lisinopril, empagliflozin, and diuretics have appropriately been held. Caution is advised with Ranexa and oxcarbazepine in kidney dysfunction. I suspect some of Kodi's medication may require adjustment for encephalopathy independent of his kidney dysfunction. Document strict I/O's. Repeat a serum metabolic profile tomorrow AM. 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 Baseline creatinine 1.2-1.6 mg/dL. MACR <10-->195 mcg/mg over the past year. Hold lisinopril and empagliflozin. Outpatient follow up to be arranged at discharge. (3) Metabolic acidosis: Plan: Metformin stopped. Predominately NAGMA in the setting of COLUMBA. HCO3 replacement has been ordered. Repeat labs in the AM. (4) CAD (coronary artery disease): Plan: Caution is advised with the use of ranolazine in COLUMBA. (5) Type 2 diabetes mellitus: Plan: Metformin stopped. Empa held. (6) UTI (urinary tract infection): Plan: Culture +Klebsiella pneumonia. Remains on ceftriaxone. Management per hospitalist. Admission and Anticipated Discharge Date Admission Date: October 18, 2025 Subjective No acute events overnight. Kodi was seen and evaluated with his at the bedside this AM. He remains lethargic with some persistent mental status changes. Kodi is not responding at his baseline. He falls asleep quickly and uses jokes to avoid answering questions appropriately. He is not completely o riented. There are no focal areas of weakness of neurologic complaints. However, he does report some numbness in his right leg. No fevers or chills. Appetite is slightly improved but remains poor. He does not have fluid retention or edema. He remains non-oliguric. Review of Systems Review of Systems: All systems reviewed & are unremarkable except as noted in HPI & below (limited due to encephalopathy) Physical Exam Constitutional: well developed; no acute distress Eyes: no scleral abnormality and no corneal abnormality ENMT: Mouth: no oral mucosal abnormality and oral mucous membranes not dry Neck: normal visual inspection and trachea midline Respiratory: normal respiratory effort Auscultation: lungs clear to auscultation bilaterally Cardiovascular: Rate/Rhythm: regular rate Heart Sounds: normal S1 and normal S2 Extremities: + pedal edema Musculoskeletal: Extremities: no cyanosis and no clubbing Skin: normal turgor; no lesions Neurologic: Motor/Sensory: no tremor and no asterixis Psychiatric: Orientation: alert and oriented x 3 Results & Data Vital Signs (Past 12 Hours) Vital Signs Temp Pulse Pulse Resp BP Pulse Ox O2 Del Method 10/20/25 11:34 36.4 C L 63 16 108/63 94 Room Air 10/20/25 07:36 Room Air 10/20/25 07:32 36.7 C 67 16 170/76 H 95 Room Air 10/20/25 07:01 70 10/20/25 04:48 36.5 C 64 20 156/77 H 96 Room Air Laboratory Results Laboratory Results - last 24 hr 10/19/25 10/19/25 10/19/25 12:21 12:55 14:18 WBC RBC Hgb Hct MCV MCH MCHC RDW Std Deviation RDW Coeff of Farideh Plt Count MPV Immature Gran % (Auto) Neut % (Auto) Lymph % (Auto) [place] % (Auto) Eos % (Auto) Baso % (Auto) Neut # (Auto) Lymph # (Auto) [place] # (Auto) Eos # (Auto) Baso # (Auto) Immature Gran # (Auto) Anisocytosis VBG pH 7.29 L VBG pCO2 29 L VBG pO2 54 VBG HCO3 14 VBG O2 Saturation 86.7 VBG Base Excess -11.5 Sodium 139 Potassium 3.6 Chloride 113 H Carbon Dioxide 15 L Anion Gap 11 BUN 46 H Creatinine 3.87 H D Est Cr Clr Drug Dosing 16.4 eGFR 15.00 BUN/Creatinine Ratio 11.9 Glucose 141 H POC Glucose 147 H Calcium 8.0 L Phosphorus Magnesium Total Bilirubin AST ALT Alkaline Phosphatase C-Reactive Protein Total Protein Albumin 3.2 L Globulin Albumin/Globulin Ratio Procalcitonin 10/19/25 10/19/25 10/19/25 16:51 20:34 21:22 WBC RBC Hgb Hct MCV MCH MCHC RDW Std Deviation RDW Coeff of Farideh Plt Count MPV Immature Gran % (Auto) Neut % (Auto) Lymph % (Auto) [place] % (Auto) Eos % (Auto) Baso % (Auto) Neut # (Auto) Lymph # (Auto) [place] # (Auto) Eos # (Auto) Baso # (Auto) Immature Gran # (Auto) Anisocytosis VBG pH 7.30 L VBG pCO2 35 L VBG pO2 28 VBG HCO3 17 VBG O2 Saturation < 60.0 VBG Base Excess -8.4 Sodium Potassium Chloride Carbon Dioxide Anion Gap BUN Creatinine Est Cr Clr Drug Dosing eGFR BUN/Creatinine Ratio Glucose POC Glucose 169 H 199 H Calcium Phosphorus Magnesium Total Bilirubin AST ALT Alkaline Phosphatase C-Reactive Protein Total Protein Albumin Globulin Albumin/Globulin Ratio Procalcitonin 10/20/25 10/20/25 10/20/25 07:38 08:43 10:37 WBC 6.49 RBC 3.03 L Hgb 9.3 L Hct 28.9 L MCV 95.4 MCH 30.7 MCHC 32.2 RDW Std Deviation 75.9 H RDW Coeff of Farideh 21.6 H Plt Count 149 MPV 9.8 Immature Gran % (Auto) 0.6 Neut % (Auto) 73.9 Lymph % (Auto) 14.5 [place] % (Auto) 7.4 Eos % (Auto) 3.1 Baso % (Auto) 0.5 Neut # (Auto) 4.80 Lymph # (Auto) 0.94 L [place] # (Auto) 0.48 Eos # (Auto) 0.20 Baso # (Auto) 0.03 Immature Gran # (Auto) 0.04 Anisocytosis Present VBG pH 7.31 L VBG pCO2 39 VBG pO2 23 VBG HCO3 20 VBG O2 Saturation < 60.0 VBG Base Excess -6.2 Sodium 137 Potassium 2.8 L D Chloride 107 Carbon Dioxide 21 Anion Gap 9 BUN 37 H Creatinine 2.80 H D Est Cr Clr Drug Dosing 22.7 eGFR 22.12 BUN/Creatinine Ratio 13.2 Glucose 113 H POC Glucose 128 H Calcium 7.9 L Phosphorus 2.1 L D Magnesium 1.9 Total Bilirubin 0.3 AST 15 ALT 15 Alkaline Phosphatase 53 C-Reactive Protein 6.94 H Total Protein 7.0 Albumin 3.6 Globulin 3.4 Albumin/Globulin Ratio 1.1 Procalcitonin 0.22 10/20/25 11:45 WBC RBC Hgb Hct MCV MCH MCHC RDW Std Deviation RDW Coeff of Farideh Plt Count MPV Immature Gran % (Auto) Neut % (Auto) Lymph % (Auto) [place] % (Auto) Eos % (Auto) Baso % (Auto) Neut # (Auto) Lymph # (Auto) [place] # (Auto) Eos # (Auto) Baso # (Auto) Immature Gran # (Auto) Anisocytosis VBG pH VBG pCO2 VBG pO2 VBG HCO3 VBG O2 Saturation VBG Base Excess Sodium Potassium Chloride Carbon Dioxide Anion Gap BUN Creatinine Est Cr Clr Drug Dosing eGFR BUN/Creatinine Ratio Glucose POC Glucose 129 H Calcium Phosphorus Magnesium Total Bilirubin AST ALT Alkaline Phosphatase C-Reactive Protein Total Protein Albumin Globulin Albumin/Globulin Ratio Procalcitonin PG Care Time/CCT Total # of Minutes Spent Total Time Spent with Patient: Total time spent is greater than 50% in coordination of care (as documented) at patient's floor/unit and/or counseling patient: Coding Level of Care Code 23267 SUB INP/OBS CARE 3/50MIN Diagnoses Acute kidney injury N17.9 CKD (chronic kidney disease) N18.9 Metabolic acidosis E87.20 CAD (coronary artery disease) I25.10 Type 2 diabetes mellitus E11.9 UTI (urinary tract infection) N39.0
[2025-10-20 13:11] LABS: Appearance Urine Cloudy (Clear); Bacteria Urine Automated None Seen (None Seen); Epithelial Cell Urine Auto 0-2 /hpf (0-2); Glucose Urine UA 3+ (Negative); RBC Urine Automated 0-2 /hpf (0-2); WBC Urine Automated >50 /hpf (0-5)
--- NOTE | 2025-10-20 13:29 | Hospitalist Progress Note ---
Date of Service October 20, 2025 Assessment & Plan (1) UTI (urinary tract infection): (2) Frequent falls: (3) Type 2 diabetes mellitus: Plan 80-year-old male PMHx T2DM, RA on hydroxychloroquine, COPD, CHF, HTN, HLD, and anemia presenting for multiple falls over the past week. His evaluation is without obvious infection, he does have baseline anemia. Creatinine is elevated significantly to 4.86, currently pending his urinalysis and abdominal imaging. Patient with multiple falls, pending official read of the head CT. No gross cardiac abnormalities at present. Admission for COLUMBA and recurrent falls. 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 Prior renal US with cortical atrophy; Not eating well over the past few days; Likely secondary to renal hypoperfusion, also in setting of UTI, cystitis noted CT. No prior pseudomonas. Received 1.5 L NSS in ED. Does have some changes to mentation, likely 2/2 to COLUMBA/UTI. Will continue to manage with IVF + abx, and if mentation does not improve, will repeat head CT or obtain MRI (pt with knee replacement). -Cr 4.86, 4.22, 3.87, 2.80 -UC with Kleb pneumoniae -condom catheter with favorable urine output -CTAP ? cystitis, no other acute findings -Avoid nephrotoxic agents - lisinopril, lasix held at admission -Ceftriaxone IV continued for Klebsiella pneumoniae with confirmed sensitivity -confirmed metabolic acidosis with VBGs, HCO3 improved with bicarb infusion, still with some lethargy -repeat UA/UC, procal 0.22, CRP 6.94, blood cultures ordered -nephrology on consult-->non oliguric [place], Cr downtrending with supportive care IV hydration -Plasmalyte at 125ml/hr per nephro ##hypokalemia/hypocalcemia/hypophosphatemia -K 2.8, replete with KCL 10MEQ IV X 4 -Phos 2.1, replete with oral Kphos -Ca 7.5, replete with oral calcium -Mg WNL #Frequent falls Prior history of falls, history of Alzheimer. Family reports he does not use his walker/cane, sometimes shuffling then falling; no symptoms prior to. - CBC anemia (near baseline) - Fall precautions - Head CT stable age related findings, no acute infarct/bleed/abnormality - PT/OT ordered with rec for STR #T2DM H/o DMT2; at home regimen includes Jardiance, metformin. - Glucose at admission 124; Most recent A1C 07/2025 @ 7.8% - Hold home regimen - SSI with target BSG range 110-140mg/dL, CF 45, carb ratio 15 - BSG ACHS - Adjust regimen as needed #RA- Dx 1980; Plaquenil, prednisone 5mg, Methotrexate weekly (last dose 10/13, every Saturday) -cont daily Prednisone #Anemia- Prior h/o, with vitamin B12 def -no active blood loss -H/H 9.5/30.7 at admission; Vitamin B12 BID, ferrous sulfate, folic acid -H/H 9.3/28.9, trend CBC #COPD -Anoro Ellipta, Combivent, albuterol neb, Ventolin; follows with pulmonology - continue #HF -Echo 08/2025 EF 55-60% -Lasix held #HTN -ACEi held -Metoprolol, isosorbide mono, lisinopril, ranazoline #HLD -Atorvastatin ##Lewy body dementia -Escitalopram, memantine, donepezil, oxcarbazepine - continue -added CK in setting of new prescribing related to donepezil to r/o rhabdo-->>CK WNL #Urge incontinence/BPH -Mirabegron, tamsulosin - continue #GERD -Pantoprazole #RLS -Ropinirole #ENDY -CPAP HS #BPH -Tamsulosin Dispo: Continued med/tele admission, PT eval recommendations for STR, will cont to monitor progress VTE Prophylaxis: SCDs CODE STATUS: DNR/DNI Admission and Anticipated Discharge Date Admission Date: October 18, 2025 Subjective Patient is sitting up eating breakfast this am. Aware he is in the hospital. Oriented to self, month and year. Follows simple commands. More awake and alert with conversation. Condom cath with favorable urinary output of clear, yellow urine. Review of Systems Review of Systems: All systems reviewed & are unremarkable except as noted in Subjective Physical Exam Physical Exam: GENERAL APPEARANCE: A&O to person, place and year. Sitting in bed. NAD. SKIN: Normal color without rashes or lesions. Normal turgor. HEENT: Head AT/NC. Buccal mucosa is moist and pink. NECK: No jugular venous distention. No thyroid enlargement. There is no lymphadenopathy. HEART: RRR without m/g/r. LUNGS: Normal inspiratory effort. CTA without w/r/r. ABDOMEN: No guarding or rigidity. Normoactive BS in all four quadrants. Abdomen soft and NT. MSK: No bony gross/deformities throughout. ROM intact. EXTREMITIES: No edema, No peripheral cyanosis. Neuro: CN 2-12 grossly intact. No focal neuro deficits PSYCHIATRIC: Normal affect. Eye contact is good. Speech is normal rate and content. Responses are appropriate. Results & Data Results & Data Vital Signs (Past 12 Hours) Vital Signs Temp Pulse Pulse Resp BP Pulse Ox O2 Del Method 10/20/25 11:34 36.4 C L 63 16 108/63 94 Room Air 10/20/25 07:36 Room Air 10/20/25 07:32 36.7 C 67 16 170/76 H 95 Room Air 10/20/25 07:01 70 10/20/25 04:48 36.5 C 64 20 156/77 H 96 Room Air Laboratory Results Labs reviewed: VBGs, CBC, CMP, Mg, Phos, procal, CRP PG Care Time/CCT Total # of Minutes Spent Total Time Spent with Patient: Total time spent is greater than 50% in coordination of care (as documented) at patient's floor/unit and/or counseling patient: Coding Level of Care Code 49710 SUB INP/OBS CARE 2/35MIN Diagnoses UTI (urinary tract infection) N39.0 Frequent falls R29.6 Type 2 diabetes mellitus E11.9
[2025-10-20 16:11] LABS: Anion Gap 8.0 (3-11); Blood Urea Nitrogen 37.0 mg/dl (6-23); Calcium 7.5 mg/dl (8.6-10.3); Carbon Dioxide 19.0 mmol/L (21-32); Chloride 107.0 mmol/L (98-107); Creatinine Clr Calc Pharmacy 23.4 ml/min; Glucose 145.0 mg/dl (70-99(Fasting)); Potassium 3.7 mmol/L (3.5-5.1); Sodium 134.0 mmol/L (136-145)
[2025-10-21 07:13] LABS: Hematocrit (blood only) 27.8 % (42.0-52.0); Hemoglobin 9.1 g/dL (14.0-18.0); Immature Granulocytes # (auto) 0.05 K/uL (0.01-0.20); Immature Granulocytes % (auto) 0.6 %; Mean Corpuscular Hemoglobin 30.7 pg (25.0-34.0); Mean Corpuscular Volume 93.9 fL (80.0-100.0); Platelet Count 142 K/uL (130-400); RDW Standard Deviation 75.9 fL (36.4-46.3); Red Blood Count 2.96 M/uL (4.70-6.10); White Blood Count 8.01 K/ul (4.8-10.8)
[2025-10-21 07:38] LABS: Anisocytosis Present; Polychromasia 1+
[2025-10-21 07:45] LABS: Alanine Aminotransferase 13.0 U/L (7-52); Albumin Globulin Ratio 1.0 (0.9-2); Albumin Level 3.5 gm/dl (3.4-5.0); Alkaline Phosphatase 51.0 U/L (34-104); Anion Gap 13.0 (3-11); Bilirubin,Total 0.3 mg/dl (0.2-1.0); Blood Urea Nitrogen 32.0 mg/dl (6-23); Calcium 7.7 mg/dl (8.6-10.3); Carbon Dioxide 18.0 mmol/L (21-32); Chloride 107.0 mmol/L (98-107); Creatinine Clr Calc Pharmacy 27.5 ml/min; Globulin 3.6 gm/dl (2.5-4.0); Glucose 116.0 mg/dl (70-99(Fasting)); Magnesium 1.9 mg/dl (1.7-2.4); Potassium 3.2 mmol/L (3.5-5.1); Sodium 138.0 mmol/L (136-145); Total Protein 7.1 gm/dl (6.0-8.3)
[2025-10-21] MEDS: POTASSIUM CHLORIDE CRTAB 20 MEQ TABCR PO SCH (09:04)
--- NOTE | 2025-10-21 09:49 | Nephrology Progress Note ---
Date of Service October 21, 2025 Assessment & Plan (1) Acute kidney injury: Plan: Creatinine continues tending down with positive fluid balance. IVF stopped yesterday. PO intake adequate. Electrolytes notable for hypokalemia, hypocalcemia, and hypophosphatemia. Replacement has been ordered. Prerenal [place] from dehydration. There is no indication for [place]. HCO3 improved with replacement and trending down slightly. AG 13. Recheck tomorrow AM. Calcium carbonate is being provided for hypocalcemia. 25OH D ~65 earlier this month. Metformin, lisinopril, empagliflozin, and diuretics held. Do not restart at this time. Caution is advised with Ranexa and oxcarbazepine in kidney dysfunction. Document strict I/O's. Repeat a serum metabolic profile tomorrow AM. 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 Baseline creatinine 1.2-1.6 mg/dL. MACR <10-->195 mcg/mg over the past year. Hold lisinopril and empagliflozin. Outpatient follow up to be arranged at discharge. (3) Metabolic acidosis: Plan: Metformin stopped. Predominately NAGMA in the setting of [place]UM[place]. HCO3 held pending monitoring. Repeat labs in the AM. (4) CAD (coronary artery disease): Plan: Caution is advised with the use of ranolazine in [place]. (5) Type 2 diabetes mellitus: Plan: Metformin stopped. Empa held. (6) UTI (urinary tract infection): Plan: Culture +Klebsiella pneumonia. Remains on ceftriaxone. Management per hospitalist. Admission and Anticipated Discharge Date Admission Date: October 18, 2025 Subjective No acute events overnight. Kodi feels well this morning. He is more awake and interactive. Appetite improved. He is eating and drinking well. No fevers or chills. He is not experiencing pain. No fluid retention or edema. Remains non-ol iguric. Review of Systems Review of Systems: All systems reviewed & are unremarkable except as noted in HPI & below Physical Exam Constitutional: well developed; no acute distress Eyes: no scleral abnormality and no corneal abnormality ENMT: Mouth: no oral mucosal abnormality and oral mucous membranes not dry Neck: normal visual inspection and trachea midline Respiratory: normal respiratory effort Auscultation: lungs clear to auscultation bilaterally Cardiovascular: Rate/Rhythm: regular rate Heart Sounds: normal S1 and normal S2 Musculoskeletal: Extremities: no cyanosis and no clubbing Skin: normal turgor; no lesions Neurologic: Motor/Sensory: no tremor and no asterixis Psychiatric: Orientation: alert and oriented x 3 Results & Data Vital Signs (Past 12 Hours) Vital Signs Temp Pulse Pulse Resp BP BP Pulse Ox 10/21/25 09:22 161/80 H 10/21/25 08:36 36.7 C 98 H 19 168/101 H 94 10/21/25 02:22 69 14 97 10/21/25 01:54 37 C 65 18 133/74 95 10/20/25 22:08 36.8 C 68 18 152/79 H 97 10/20/25 21:56 71 O2 Del Method 10/21/25 09:22 10/21/25 08:36 Room Air 10/21/25 02:22 10/21/25 01:54 Room Air, CPAP 10/20/25 22:08 Room Air, CPAP 10/20/25 21:56 Laboratory Results Laboratory Results - last 24 hr 10/20/25 10/20/25 10/20/25 08:43 10:37 11:45 WBC RBC Hgb Hct MCV MCH MCHC RDW Std Deviation RDW Coeff of Farideh Plt Count MPV Immature Gran % (Auto) Neut % (Auto) Lymph % (Auto) [place] % (Auto) Eos % (Auto) Baso % (Auto) Neut # (Auto) Lymph # (Auto) [place] # (Auto) Eos # (Auto) Baso # (Auto) Immature Gran # (Auto) Absolute Nucleated RBC Nucleated RBC % (auto) Polychromasia Anisocytosis Sodium Potassium Chloride Carbon Dioxide Anion Gap BUN Creatinine Est Cr Clr Drug Dosing eGFR BUN/Creatinine Ratio Glucose POC Glucose 129 H Calcium Ionized Calcium Phosphorus Magnesium Total Bilirubin AST ALT Alkaline Phosphatase C-Reactive Protein 6.94 H Total Protein Albumin Globulin Albumin/Globulin Ratio Procalcitonin 0.22 Urine Color Urine Appearance Urine pH Ur Specific [place] Urine Protein Urine Glucose (UA) Urine Ketones Urine Blood Urine Nitrite Urine Bilirubin Urine Urobilinogen Ur Leukocyte Esterase Urine WBC (Auto) Urine RBC (Auto) U Hyaline Cast (Auto) U Epithel Cells (Auto) Urine Bacteria (Auto) Urine Comment 10/20/25 10/20/25 10/20/25 15:26 16:35 20:01 WBC RBC Hgb Hct MCV MCH MCHC RDW Std Deviation RDW Coeff of Farideh Plt Count MPV Immature Gran % (Auto) Neut % (Auto) Lymph % (Auto) [place] % (Auto) Eos % (Auto) Baso % (Auto) Neut # (Auto) Lymph # (Auto) [place] # (Auto) Eos # (Auto) Baso # (Auto) Immature Gran # (Auto) Absolute Nucleated RBC Nucleated RBC % (auto) Polychromasia Anisocytosis Sodium 134 L Potassium 3.7 D Chloride 107 Carbon Dioxide 19 L Anion Gap 8 BUN 37 H Creatinine 2.71 H Est Cr Clr Drug Dosing 23.4 eGFR 23.00 BUN/Creatinine Ratio 13.7 Glucose 145 H POC Glucose 135 H 182 H Calcium 7.5 L Ionized Calcium Phosphorus Magnesium Total Bilirubin AST ALT Alkaline Phosphatase C-Reactive Protein Total Protein Albumin Globulin Albumin/Globulin Ratio Procalcitonin Urine Color Urine Appearance Urine pH Ur Specific [place] Urine Protein Urine Glucose (UA) Urine Ketones Urine Blood Urine Nitrite Urine Bilirubin Urine Urobilinogen Ur Leukocyte Esterase Urine WBC (Auto) Urine RBC (Auto) U Hyaline Cast (Auto) U Epithel Cells (Auto) Urine Bacteria (Auto) Urine Comment 10/20/25 10/21/25 10/21/25 Unknown 06:44 08:08 WBC 8.01 RBC 2.96 L Hgb 9.1 L Hct 27.8 L MCV 93.9 MCH 30.7 MCHC 32.7 RDW Std Deviation 75.9 H RDW Coeff of Farideh 21.8 H Plt Count 142 MPV 9.9 Immature Gran % (Auto) 0.6 Neut % (Auto) 75.2 Lymph % (Auto) 13.7 [place] % (Auto) 7.4 Eos % (Auto) 2.9 Baso % (Auto) 0.2 Neut # (Auto) 6.02 Lymph # (Auto) 1.10 L [place] # (Auto) 0.59 Eos # (Auto) 0.23 Baso # (Auto) 0.02 Immature Gran # (Auto) 0.05 Absolute Nucleated RBC 0.02 Nucleated RBC % (auto) 0.2 Polychromasia 1+ Anisocytosis Present Sodium 138 Potassium 3.2 L Chloride 107 Carbon Dioxide 18 L Anion Gap 13 H BUN 32 H Creatinine 2.31 H D Est Cr Clr Drug Dosing 27.5 eGFR 27.86 BUN/Creatinine Ratio 13.9 Glucose 116 H POC Glucose 141 H Calcium 7.7 L Ionized Calcium Phosphorus 2.8 Magnesium 1.9 Total Bilirubin 0.3 AST 16 ALT 13 Alkaline Phosphatase 51 C-Reactive Protein Total Protein 7.1 Albumin 3.5 Globulin 3.6 Albumin/Globulin Ratio 1.0 Procalcitonin Urine Color Yellow Urine Appearance Cloudy A Urine pH 6.0 Ur Specific [place] 1.017 Urine Protein 2+ H Urine Glucose (UA) 3+ H Urine Ketones 1+ H Urine Blood 1+ H Urine Nitrite Negative Urine Bilirubin Negative Urine Urobilinogen Negative Ur Leukocyte Esterase 2+ H Urine WBC (Auto) >50 H Urine RBC (Auto) 0-2 U Hyaline Cast (Auto) 3-5 H U Epithel Cells (Auto) 0-2 Urine Bacteria (Auto) None Seen Urine Comment 10/21/25 08:23 WBC RBC Hgb Hct MCV MCH MCHC RDW Std Deviation RDW Coeff of Farideh Plt Count MPV Immature Gran % (Auto) Neut % (Auto) Lymph % (Auto) [place] % (Auto) Eos % (Auto) Baso % (Auto) Neut # (Auto) Lymph # (Auto) [place] # (Auto) Eos # (Auto) Baso # (Auto) Immature Gran # (Auto) Absolute Nucleated RBC Nucleated RBC % (auto) Polychromasia Anisocytosis Sodium Potassium Chloride Carbon Dioxide Anion Gap BUN Creatinine Est Cr Clr Drug Dosing eGFR BUN/Creatinine Ratio Glucose POC Glucose Calcium Ionized Calcium 1.03 L Phosphorus Magnesium Total Bilirubin AST ALT Alkaline Phosphatase C-Reactive Protein Total Protein Albumin Globulin Albumin/Globulin Ratio Procalcitonin Urine Color Urine Appearance Urine pH Ur Specific [place] Urine Protein Urine Glucose (UA) Urine Ketones Urine Blood Urine Nitrite Urine Bilirubin Urine Urobilinogen Ur Leukocyte Esterase Urine WBC (Auto) Urine RBC (Auto) U Hyaline Cast (Auto) U Epithel Cells (Auto) Urine Bacteria (Auto) Urine Comment PG Care Time/CCT Total # of Minutes Spent Total Time Spent with Patient: Total time spent is greater than 50% in coordination of care (as documented) at patient's floor/unit and/or counseling patient: Coding Level of Care Code 79716 SUB INP/OBS CARE 3/50MIN Diagnoses Acute kidney injury N17.9 CKD (chronic kidney disease) N18.9 Metabolic acidosis E87.20 CAD (coronary artery disease) I25.10 Type 2 diabetes mellitus E11.9 UTI (urinary tract infection) N39.0
[2025-10-21] MEDS: CALCIUM GLUCONATE 1,000 MG/60 ML BAG IV STA (12:49)
[2025-10-21] MEDS: PLASMA-LYTE A 1,000 ML IV SCH (13:31)
[2025-10-21 14:09] LABS: Base Excess VBG -6.7 mEq/L; HCO3 VBG 17 mmol/L; Oxygen Saturation VBG 88.7 %; PCO2 VBG 30 mmHg (38-50); PO2 VBG 59 mmHg; pH VBG 7.37 (7.36-7.41)
--- NOTE | 2025-10-21 17:06 | Hospitalist Progress Note ---
Date of Service October 21, 2025 Assessment & Plan (1) UTI (urinary tract infection): (2) Frequent falls: (3) Type 2 diabetes mellitus: Plan 80-year-old male PMHx T2DM, RA on hydroxychloroquine, COPD, CHF, HTN, HLD, and anemia presenting for multiple falls over the past week. His evaluation is without obvious infection, he does have baseline anemia. Creatinine is elevated significantly to 4.86, currently pending his urinalysis and abdominal imaging. Patient with multiple falls, pending official read of the head CT. No gross cardiac abnormalities at present. Admission for COLUMBA and recurrent falls. 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 Prior renal US with cortical atrophy; Not eating well over the past few days; Likely secondary to renal hypoperfusion, also in setting of UTI, cystitis noted CT. No prior pseudomonas. Received 1.5 L NSS in ED. Does have some changes to mentation, likely 2/2 to COLUMBA/UTI. Will continue to manage with IVF + abx, and if mentation does not improve, will repeat head CT or obtain MRI (pt with knee replacement). -Cr 4.86, 4.22, 3.87, 2.80 -UC with Kleb pneumoniae -condom catheter with favorable urine output -CTAP ? cystitis, no other acute findings -Avoid nephrotoxic agents - lisinopril, lasix held at admission -Ceftriaxone IV course complete for Klebsiella pneumoniae with confirmed sensitivity, repeat UC 10/21 with no growth -VBGs with no overt metabolic acidosis and appropriate compensation -repeat UA/UC, procal 0.22, CRP 6.94, blood cultures NGTD -nephrology on consult-->non oliguric COLUMBA, Cr downtrending with supportive care IV hydration -Plasmalyte at 125ml/hr per nephro ##hypokalemia/hypocalcemia/hypophosphatemia -K 3.2, replete with oral K 20MEQ po BID -Phos 2.8, d/c Kphos tabs -Ca 7.7, Ionized Ca 10.3, replete with Calcium gluconate 1000mg IV X 1 -Mg WNL #Frequent falls Prior history of falls, history of Alzheimer. Family reports he does not use his walker/cane, sometimes shuffling then falling; no symptoms prior to. - CBC anemia (near baseline) - Fall precautions - Head CT stable age related findings, no acute infarct/bleed/abnormality - PT/OT ordered with rec for STR #T2DM H/o DMT2; at home regimen includes Jardiance, metformin. - Glucose at admission 124; Most recent A1C 07/2025 @ 7.8% - Hold home regimen - SSI with target BSG range 110-140mg/dL, CF 45, carb ratio 15 - BSG ACHS - Adjust regimen as needed #RA- Dx 1980; Plaquenil, prednisone 5mg, Methotrexate weekly (last dose 10/13, every Saturday) -cont daily Prednisone #Anemia- Prior h/o, with vitamin B12 def -no active blood loss -H/H 9.5/30.7 at admission; Vitamin B12 BID, ferrous sulfate, folic acid -H/H 9.3/28.9, trend CBC #COPD -Anoro Ellipta, Combivent, albuterol neb, Ventolin; follows with pulmonology - continue #HF -Echo 08/2025 EF 55-60% -Lasix held #HTN -ACEi held -Metoprolol, isosorbide mono, lisinopril, ranazoline #HLD -Atorvastatin ##Lewy body dementia -Escitalopram, memantine, donepezil, oxcarbazepine - continue -added CK in setting of new prescribing related to donepezil to r/o rhabdo-->>CK WNL #Urge incontinence/BPH -Mirabegron, tamsulosin - continue #GERD -Pantoprazole #RLS -Ropinirole #ENDY -CPAP HS #BPH -Tamsulosin Dispo: Continued med/tele admission, PT eval recommendations for STR, will cont to monitor progress VTE Prophylaxis: SCDs CODE STATUS: DNR/DNI Admission and Anticipated Discharge Date Admission Date: October 18, 2025 Supervising Physician Co-Signing Physician Notes Attending Attestation & Progress note: Pt seen, chart reviewed, care plan d/w PRICILA Lara. I agree w/ the jensen components of her documentation. Saw patient late in the day. Pt's daughter and were present at bedside. He was eating his dinner meal. He was able to feed himself. He asked a few basic questions and was awake the entire time I was present. exam: gen - awake, alert, eating his meal neuro - masked facies, slow movements of his arms when attempting to eat labs - Cr today 2.3 Cr at admission 4.8 WBC count wnl Hb 9.1 A/P: 80yo male with T2DM, RA on hydroxychloroquine & chronic prednisone, COPD, CHF, HTN, CAD, Hyperlipidemia, Lewy-Body Dementia and anemia. Presented with multiple falls x 1 week and evidence of COLUMBA. 1. COLUMBA - improving; appreciate nephrology assistance. Cont daily BMP. IV fluids have been stopped; patient taking decent amount of PO intake at this point. 2. Acute metabolic encephalopathy in setting of Lewy-Body dementia - -UTI, COLUMBA, metabolic acidosis, etc likely all to blame for altered mental status -altered mental status is improving with Rx of UTI, supportive care of COLUMBA/acid osis, etc. 3. Klebsiella UTI - -cont rocephin 4. Falls - -PT/OT 5. HTN - -in setting of COLUMBA cont to hold lisinopril & diuretics 6. T2DM - -cont to hold metformin -cont to hold empagliflozin -cont Novolog SSI family updated at bedside Erich Palmer MD Subjective Patient awake and alert this am with no complaints. Eating and drinking well. Condom catheter remains in place with favorable urinary output. Nursing reported this afternoon patient more sleepy. Easily arousable to conversation. Review of Systems Review of Systems: All systems reviewed & are unremarkable except as noted in Subjective Physical Exam Physical Exam: GENERAL APPEARANCE: A&O to person, place and year. Sitting in bed. NAD. SKIN: Normal color without rashes or lesions. Normal turgor. HEENT: Head AT/NC. Buccal mucosa is moist and pink. NECK: No jugular venous distention. No thyroid enlargement. There is no lymphadenopathy. HEART: RRR without m/g/r. LUNGS: Normal inspiratory effort. CTA without w/r/r. ABDOMEN: No guarding or rigidity. Normoactive BS in all four quadrants. Abdomen soft and NT. MSK: No bony gross/deformities throughout. ROM intact. EXTREMITIES: No edema, No peripheral cyanosis. Neuro: CN 2-12 grossly intact. No focal neuro deficits PSYCHIATRIC: Normal affect. Eye contact is good. Speech is normal rate and content. Responses are appropriate. Results & Data Results & Data Vital Signs (Past 12 Hours) Vital Signs Temp Pulse Pulse Resp BP BP Pulse Ox 10/21/25 15:47 37.2 C 70 17 115/68 93 10/21/25 13:33 36.9 C 70 20 126/67 91 10/21/25 12:00 37.0 C 69 18 127/68 93 10/21/25 10:00 10/21/25 09:22 161/80 H 10/21/25 08:36 36.7 C 98 H 19 168/101 H 94 10/21/25 07:00 68 O2 Del Method 10/21/25 15:47 Room Air 10/21/25 13:33 Room Air 10/21/25 12:00 Room Air 10/21/25 10:00 Room Air, CPAP 10/21/25 09:22 10/21/25 08:36 Room Air 10/21/25 07:00 Laboratory Results Labs reviewed: CBC, CMP, Mg, Phos PG Care Time/CCT Total # of Minutes Spent Total Time Spent with Patient: Total time spent is greater than 50% in coordination of care (as documented) at patient's floor/unit and/or counseling patient: Coding Level of Care Code 99053 SUB INP/OBS CARE 3/50MIN Diagnoses UTI (urinary tract infection) N39.0 Frequent falls R29.6 Type 2 diabetes mellitus E11.9
[2025-10-22 06:53] LABS: Hematocrit (blood only) 28.2 % (42.0-52.0); Hemoglobin 9.0 g/dL (14.0-18.0); Immature Granulocytes # (auto) 0.08 K/uL (0.01-0.20); Immature Granulocytes % (auto) 0.9 %; Mean Corpuscular Hemoglobin 30.0 pg (25.0-34.0); Mean Corpuscular Volume 94.0 fL (80.0-100.0); Platelet Count 126 K/uL (130-400); RDW Standard Deviation 75.4 fL (36.4-46.3); Red Blood Count 3.00 M/uL (4.70-6.10); White Blood Count 8.43 K/ul (4.8-10.8)
[2025-10-22 07:11] LABS: Albumin Level 3.4 gm/dl (3.4-5.0); Anion Gap 12.0 (3-11); Blood Urea Nitrogen 26.0 mg/dl (6-23); Calcium 7.8 mg/dl (8.6-10.3); Carbon Dioxide 19.0 mmol/L (21-32); Chloride 106.0 mmol/L (98-107); Creatinine Clr Calc Pharmacy 33.9 ml/min; Glucose 132.0 mg/dl (70-99(Fasting)); Magnesium 1.7 mg/dl (1.7-2.4); Potassium 3.2 mmol/L (3.5-5.1); Sodium 137.0 mmol/L (136-145)
[2025-10-22 07:25] LABS: Hypersegmented Neutrophils Occasional
[2025-10-22] MEDS ORDERED: POT PHOSPHATE MONOBASIC W/ SOD TAB PO SCH (09:00)
[2025-10-22] MEDS: POT PHOSPHATE MONOBASIC W/ SOD TAB PO SCH (09:27)
[2025-10-22] MEDS: POTASSIUM CHLORIDE CRTAB 20 MEQ TABCR PO SCH (09:28)
[2025-10-22] MEDS: CALCIUM GLUCONATE 1,000 MG/60 ML BAG IV STA (09:30)
--- NOTE | 2025-10-22 14:29 | Nephrology Progress Note ---
Date of Service October 22, 2025 Assessment & Plan (1) Acute kidney injury: Plan: Improving. Prerenal COLUMBA from dehydration in the setting of UTI and empa + lisinopril. Electrolytes are being replaced by hospitalist team appropriately. No additional nephrology recommendations at this time. I will sign-off. Please arrange outpatient nephrology follow up at discharge. Continue to hold empagliflozin and metformin for now. Diuretics may be provided, if needed. Lisinopril may be restarted in the next 24-48 hours (as needed), if kidney function remains stable or continues to improve. 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 Baseline creatinine 1.2-1.6 mg/dL. MACR <10-->195 mcg/mg over the past year. I suspect Lisinopril could be safely restarted if kidney function remains stable or continues to improve over the next 24 hours. I would continue to hold empagliflozin and metformin for now. Outpatient follow up to be arranged at discharge. (3) Metabolic acidosis: Plan: NAGMA in the setting of kidney dysfunction. Metformin stopped. (4) CAD (coronary artery disease): Plan: Caution is advised with the use of ranolazine in COLUMBA. (5) Type 2 diabetes mellitus: Plan: Metformin stopped. Empa held. I would hold off on restarting pending additional monitoring and outpatient follow up. (6) UTI (urinary tract infection): Plan: Culture +Klebsiella pneumonia. Remains on ceftriaxone. Management per hospitalist. Defer SGLT2i therapy due to risk of recurrent UTI. Admission and Anticipated Discharge Date Admission Date: October 18, 2025 Subjective No acute events overnight. Kodi feels reasonably well today. No fevers or chills. No urinary symptoms. Kodi does not have significant fluid retention or edema. Appetite is good. Review of Systems Review of Systems: All systems reviewed & are unremarkable except as noted in HPI & below Physical Exam Constitutional: well developed; no acute distress Eyes: no scleral abnormality and no corneal abnormality ENMT: Mouth: no oral mucosal abnormality and oral mucous membranes not dry Neck: normal visual inspection and trachea midline Respiratory: normal respiratory effort Auscultation: lungs clear to auscultation bilaterally Cardiovascular: Rate/Rhythm: regular rate Heart Sounds: normal S1 and normal S2 Extremities: + pedal edema Musculoskeletal: Extremities: no cyanosis and no clubbing Skin: normal turgor; no lesions Neurologic: Motor/Sensory: no tremor and no asterixis Psychiatric: Orientation: alert and oriented x 3 Results & Data Vital Signs (Past 12 Hours) Vital Signs Temp Pulse Pulse Resp BP Pulse Ox O2 Del Method 10/22/25 12:00 36.9 C 73 19 143/71 H 92 Room Air 10/22/25 08:29 36.6 C 71 19 157/73 H 95 Room Air 10/22/25 07:35 70 10/22/25 02:43 36.6 C 68 16 144/76 H 96 Room Air Laboratory Results Laboratory Results - last 24 hr 10/21/25 10/21/25 10/22/25 17:23 19:56 06:27 WBC 8.43 RBC 3.00 L Hgb 9.0 L Hct 28.2 L MCV 94.0 MCH 30.0 MCHC 31.9 L RDW Std Deviation 75.4 H RDW Coeff of Farideh 22.1 H Plt Count 126 L MPV 9.2 L Immature Gran % (Auto) 0.9 Neut % (Auto) 79.4 Lymph % (Auto) 12.6 [place] % (Auto) 3.1 Eos % (Auto) 3.6 Baso % (Auto) 0.4 Neut # (Auto) 6.70 H Lymph # (Auto) 1.06 L [place] # (Auto) 0.26 Eos # (Auto) 0.30 Baso # (Auto) 0.03 Immature Gran # (Auto) 0.08 Hypersegmented Neuts Occasional Sodium 137 Potassium 3.2 L Chloride 106 Carbon Dioxide 19 L Anion Gap 12 H BUN 26 H Creatinine 1.89 H D Est Cr Clr Drug Dosing 33.9 eGFR 35.44 BUN/Creatinine Ratio 13.8 Glucose 132 H POC Glucose 135 H 143 H Calcium 7.8 L Phosphorus 2.3 L Magnesium 1.7 B-Natriuretic Peptide 64 Albumin 3.4 10/22/25 10/22/25 08:20 12:22 WBC RBC Hgb Hct MCV MCH MCHC RDW Std Deviation RDW Coeff of Farideh Plt Count MPV Immature Gran % (Auto) Neut % (Auto) Lymph % (Auto) [place] % (Auto) Eos % (Auto) Baso % (Auto) Neut # (Auto) Lymph # (Auto) [place] # (Auto) Eos # (Auto) Baso # (Auto) Immature Gran # (Auto) Hypersegmented Neuts Sodium Potassium Chloride Carbon Dioxide Anion Gap BUN Creatinine Est Cr Clr Drug Dosing eGFR BUN/Creatinine Ratio Glucose POC Glucose 102 H 167 H Calcium Phosphorus Magnesium B-Natriuretic Peptide Albumin PG Care Time/CCT Total # of Minutes Spent Total Time Spent with Patient: Total time spent is greater than 50% in coordination of care (as documented) at patient's floor/unit and/or counseling patient: Coding Level of Care Code 82651 SUB INP/OBS CARE 3/50MIN Diagnoses Acute kidney injury N17.9 CKD (chronic kidney disease) N18.9 Metabolic acidosis E87.20 CAD (coronary artery disease) I25.10 Type 2 diabetes mellitus E11.9 UTI (urinary tract infection) N39.0
--- NOTE | 2025-10-22 15:25 | Hospitalist Progress Note ---
Date of Service October 22, 2025 Assessment & Plan (1) UTI (urinary tract infection): (2) Frequent falls: (3) Type 2 diabetes mellitus: Plan 80-year-old male PMHx T2DM, RA on hydroxychloroquine, COPD, CHF, HTN, HLD, and anemia presenting for multiple falls over the past week. His evaluation is without obvious infection, he does have baseline anemia. Creatinine is elevated significantly to 4.86, currently pending his urinalysis and abdominal imaging. Patient with multiple falls, pending official read of the head CT. No gross cardiac abnormalities at present. Admission for COLUMBA and recurrent falls. #COLUMBA/UTI/CKD H/o CKD, attributed to arterionephrosclerosis NSAID use, follows with nephrology. Prior renal US with cortical atrophy; Not eating well over the past few days; Likely secondary to renal hypoperfusion, also in setting of UTI, cystitis noted CT. No prior pseudomonas. Received 1.5 L NSS in ED. Does have some changes to mentation, likely 2/2 to COLUMBA/UTI. Will continue to manage with IVF + abx, and if mentation does not improve, will repeat head CT or obtain MRI (pt with knee replacement). -Cr 4.86, 4.22, 3.87, 2.80, 1.89 -UC with Kleb pneumoniae -condom catheter with favorable urine output -CTAP ? cystitis, no other acute findings -Avoid nephrotoxic agents - lisinopril, lasix held at admission -Ceftriaxone IV course complete for Klebsiella pneumoniae with confirmed sensitivity, repeat UC 10/21 with no growth -VBGs with no overt metabolic acidosis and appropriate compensation -repeat UA/UC, procal 0.22, CRP 6.94, blood cultures NGTD -nephrology on consult-->non oliguric COLUMBA, Cr downtrending with supportive care IV hydration, rec to defer SGLT2i in setting of UTIs -no additional IVF at this time as Cr correcting ##hypokalemia/hypocalcemia/hypophosphatemia -K 3.2, increase oral K 20meq po TID -Phos 2.3, add on Kphos tabs -Ca 7.8, replete with calcium gluconate 1000mg IV X 1 -Mg WNL ##Superficial phlebitis R hand -warm compresses to right hand -monitor for worsening symptoms #Frequent falls Prior history of falls, history of Alzheimer. Family reports he does not use his walker/cane, sometimes shuffling then falling; no symptoms prior to. - CBC anemia (near baseline) - Fall precautions - Head CT stable age related findings, no acute infarct/bleed/abnormality - PT/OT ordered with rec for STR #T2DM H/o DMT2; at home regimen includes Jardiance, metformin. - Glucose at admission 124; Most recent A1C 07/2025 @ 7.8% - Hold home regimen - SSI with target BSG range 110-140mg/dL, CF 45, carb ratio 15 - BSG ACHS - Adjust regimen as needed #RA- Dx 1980; Plaquenil, prednisone 5mg, Methotrexate weekly (last dose 10/13, every Saturday) -cont daily Prednisone #Anemia- Prior h/o, with vitamin B12 def -no active blood loss -H/H 9.5/30.7 at admission; Vitamin B12 BID, ferrous sulfate, folic acid -H/H 9.0/28.2, possible downtrend r/t hemodilution in setting of daily IV fluid repletion for COLUMBA #COPD -Anoro Ellipta, Combivent, albuterol neb, Ventolin; follows with pulmonology - continue #HF -Echo 08/2025 EF 55-60% -Lasix held -euvolemic on exam, BNP WNL #HTN -ACEi held -Metoprolol, isosorbide mono, lisinopril, ranazoline #HLD -Atorvastatin ##Lewy body dementia -Escitalopram, memantine, donepezil, oxcarbazepine - continue -added CK in setting of new prescribing related to donepezil to r/o rhabdo-->>CK WNL #Urge incontinence/BPH -Mirabegron, tamsulosin - continue #GERD -Pantoprazole #RLS -Ropinirole #ENDY -CPAP HS #BPH -Tamsulosin Dispo: Continued med/tele admission, PT eval recommendations for STR, will cont to monitor progress VTE Prophylaxis: SCDs CODE STATUS: DNR/DNI Admission and Anticipated Discharge Date Admission Date: October 18, 2025 Subjective Patient awake this am and more responsive. Still with transient periods of falling asleep. Daughter at bedside and states he does have awake/drowsy cycles at home. He is still not fully at baseline per her report. Nursing reported patient has localized area of redness to right hand surrounding vein-->possible IV site or venipuncture site. He is eating and drinking well. Condom catheter still in place with good urinary output. Review of Systems Review of Systems: All systems reviewed & are unremarkable except as noted in Subjective Physical Exam Physical Exam: GENERAL APPEARANCE: A&O to person, place and year. Sitting in bed. NAD. SKIN: Normal color without rashes or lesions. Normal turgor. HEENT: Head AT/NC. Buccal mucosa is moist and pink. NECK: No jugular venous distention. No thyroid enlargement. There is no lymphadenopathy. HEART: RRR without m/g/r. LUNGS: Normal inspiratory effort. CTA without w/r/r. ABDOMEN: No guarding or rigidity. Normoactive BS in all four quadrants. Abdomen soft and NT. MSK: No bony gross/deformities throughout. ROM intact. EXTREMITIES: No edema, No peripheral cyanosis. Right hand vein with superficial redness and slight warmth to the touch. No hematoma Neuro: CN 2-12 grossly intact. No focal neuro deficits PSYCHIATRIC: Normal affect. Eye contact is good. Speech is normal rate and content. Responses are appropriate. Results & Data Results & Data Vital Signs (Past 12 Hours) Vital Signs Temp Pulse Pulse Resp BP Pulse Ox O2 Del Method 10/22/25 12:00 36.9 C 73 19 143/71 H 92 Room Air 10/22/25 08:29 36.6 C 71 19 157/73 H 95 Room Air 10/22/25 07:35 70 Laboratory Results Labs reviewed: CBC, BMP, Mg, Phos PG Care Time/CCT Total # of Minutes Spent Total Time Spent with Patient: Total time spent is greater than 50% in coordination of care (as documented) at patient's floor/unit and/or counseling patient: Coding Level of Care Code 21407 SUB INP/OBS CARE 2/35MIN Diagnoses UTI (urinary tract infection) N39.0 Frequent falls R29.6 Type 2 diabetes mellitus E11.9
[2025-10-23 06:13] LABS: Hematocrit (blood only) 27.6 % (42.0-52.0); Hemoglobin 9.0 g/dL (14.0-18.0); Immature Granulocytes # (auto) 0.04 K/uL (0.01-0.20); Immature Granulocytes % (auto) 0.5 %; Mean Corpuscular Hemoglobin 30.9 pg (25.0-34.0); Mean Corpuscular Volume 94.8 fL (80.0-100.0); Platelet Count 140 K/uL (130-400); RDW Standard Deviation 77.0 fL (36.4-46.3); Red Blood Count 2.91 M/uL (4.70-6.10); White Blood Count 7.58 K/ul (4.8-10.8)
[2025-10-23 06:36] LABS: Anion Gap 10.0 (3-11); Blood Urea Nitrogen 31.0 mg/dl (6-23); Calcium 8.2 mg/dl (8.6-10.3); Carbon Dioxide 18.0 mmol/L (21-32); Chloride 109.0 mmol/L (98-107); Creatinine Clr Calc Pharmacy 30.0 ml/min; Glucose 101.0 mg/dl (70-99(Fasting)); Magnesium 1.7 mg/dl (1.7-2.4); Potassium 3.9 mmol/L (3.5-5.1); Sodium 137.0 mmol/L (136-145)
[2025-10-23 06:39] LABS: Anisocytosis Present; Tear Drop Cells 1+; Toxic Granulation 1+
--- NOTE | 2025-10-23 08:18 | Hospitalist Progress Note ---
Date of Service October 23, 2025 Assessment & Plan (1) UTI (urinary tract infection): (2) Frequent falls: (3) Type 2 diabetes mellitus: Plan 80-year-old male PMHx T2DM, RA on hydroxychloroquine, COPD, CHF, HTN, HLD, and anemia presenting for multiple falls over the past week. His evaluation is without obvious infection, he does have baseline anemia. Creatinine is elevated significantly to 4.86, currently pending his urinalysis and abdominal imaging. Patient with multiple falls, pending official read of the head CT. No gross cardiac abnormalities at present. Admission for COLUMBA and recurrent falls. #COLUMBA/UTI/CKD H/o CKD, attributed to arterionephrosclerosis NSAID use, follows with nephrology. Prior renal US with cortical atrophy. -Cr 4.86, 4.22, 3.87, 2.80, 1.89, 2.11 -UC with Kleb pneumoniae -condom catheter with favorable urine output -CTAP ? cystitis, no other acute findings -Avoid nephrotoxic agents - lisinopril, lasix held at admission -Ceftriaxone IV course complete for Klebsiella pneumoniae with confirmed sensitivity, repeat UC 10/21 with no growth -VBGs with no overt metabolic acidosis and appropriate compensation -repeat UA/UC, procal 0.22, CRP 6.94, blood cultures NGTD -nephrology on consult-->non oliguric COLUMBA, Cr downtrending with supportive care IV hydration, rec to defer SGLT2i in setting of UTIs -continue to trend Cr ##hypokalemia/hypocalcemia/hypophosphatemia -K 3.9, maintain oral K supplementation -Phos 3.0, Kphos tabs -Ca 8.2, repletion with Calcium gluconate 1000mg IV X 2 -Mg WNL ##Superficial phlebitis R hand (resolved) -warm compresses to right hand -monitor for worsening symptoms #Frequent falls Prior history of falls, history of Alzheimer. Family reports he does not use his walker/cane, sometimes shuffling then falling; no symptoms prior to. - CBC anemia (near baseline) - Fall precautions - Head CT stable age related findings, no acute infarct/bleed/abnormality - PT/OT ordered with rec for STR #T2DM H/o DMT2; at home regimen includes Jardiance, metformin. - Glucose at admission 124; Most recent A1C 07/2025 @ 7.8% - Hold home regimen - SSI with target BSG range 110-140mg/dL, CF 45, carb ratio 15 - BSG ACHS - Adjust regimen as needed #RA- Dx 1980; Plaquenil, prednisone 5mg, Methotrexate weekly (last dose 10/13, every Saturday) -cont daily Prednisone #Anemia- Prior h/o, with vitamin B12 def -no active blood loss -H/H 9.5/30.7 at admission; Vitamin B12 BID, ferrous sulfate, folic acid -H/H 9.0/28.2, possible downtrend r/t hemodilution in setting of daily IV fluid repletion for COLUMBA #COPD -Anoro Ellipta, Combivent, albuterol neb, Ventolin; follows with pulmonology - continue #HF -Echo 08/2025 EF 55-60% -Lasix held -euvolemic on exam, BNP WNL #HTN -ACEi held -Metoprolol, isosorbide mono, lisinopril, ranazoline #HLD -Atorvastatin ##Lewy body dementia -Escitalopram, memantine, donepezil, oxcarbazepine - continue -added CK in setting of new prescribing related to donepezil to r/o rhabdo-->>CK WNL #Urge incontinence/BPH -Mirabegron, tamsulosin - continue #GERD -Pantoprazole #RLS -Ropinirole #ENDY -CPAP HS #BPH -Tamsulosin Dispo: Continued med/tele admission, PT eval recommendations for STR, will cont to monitor progress, probable d/c 10/25 to [facility] VTE Prophylaxis: SCDs CODE STATUS: DNR/DNI Admission and Anticipated Discharge Date Admission Date: October 18, 2025 Subjective Kodi is sitting up in bed this am. He is completely oriented and alert. He has no complaints. States he ate all of his breakfast. Review of Systems Review of Systems: All systems reviewed & are unremarkable except as noted in Subjective Physical Exam Physical Exam: GENERAL APPEARANCE: A&. Sitting in bed. NAD. SKIN: Normal color without rashes or lesions. Normal turgor. HEENT: Head AT/NC. Buccal mucosa is moist and pink. NECK: No jugular venous distention. No thyroid enlargement. There is no lymphadenopathy. HEART: RRR without m/g/r. LUNGS: Normal inspiratory effort. CTA without w/r/r. ABDOMEN: No guarding or rigidity. Normoactive BS in all four quadrants. Abdomen soft and NT. MSK: No bony gross/deformities throughout. ROM intact. EXTREMITIES: No edema, No peripheral cyanosis. Right hand vein with resolved redness. Neuro: CN 2-12 grossly intact. No focal neuro deficits PSYCHIATRIC: Normal affect. Eye contact is good. Speech is normal rate and content. Responses are appropriate. Results & Data Results & Data Vital Signs (Past 12 Hours) Vital Signs Temp Pulse Pulse Resp BP Pulse Ox O2 Del Method 10/23/25 08:13 68 10/23/25 07:54 36.3 C L 72 18 156/75 H 94 Room Air 10/23/25 02:47 36.9 C 68 18 113/56 L 95 Room Air 10/22/25 22:25 36.6 C 78 16 134/70 95 Room Air 10/22/25 22:02 77 10/22/25 20:45 Room Air Laboratory Results Labs reviewed: CBC, BMP, Mg, Phos PG Care Time/CCT Total # of Minutes Spent Total Time Spent with Patient: Total time spent is greater than 50% in coordination of care (as documented) at patient's floor/unit and/or counseling patient: Coding Level of Care Code 20637 SUB INP/OBS CARE 2MIN Diagnoses UTI (urinary tract infection) N39.0 Frequent falls R29.6 Type 2 diabetes mellitus E11.9
[2025-10-23] MEDS: PLASMA-LYTE A 1,000 ML IV SCH (10:09)
[2025-10-24 06:56] LABS: Hematocrit (blood only) 30.8 % (42.0-52.0); Hemoglobin 9.9 g/dL (14.0-18.0); Immature Granulocytes # (auto) 0.04 K/uL (0.01-0.20); Immature Granulocytes % (auto) 0.6 %; Mean Corpuscular Hemoglobin 30.4 pg (25.0-34.0); Mean Corpuscular Volume 94.5 fL (80.0-100.0); Platelet Count 155 K/uL (130-400); RDW Standard Deviation 77.2 fL (36.4-46.3); Red Blood Count 3.26 M/uL (4.70-6.10); White Blood Count 6.49 K/ul (4.8-10.8)
[2025-10-24 07:22] LABS: Anisocytosis Present; Polychromasia 1+
[2025-10-24 07:27] LABS: Albumin Level 3.5 gm/dl (3.4-5.0); Anion Gap 10.0 (3-11); Blood Urea Nitrogen 29.0 mg/dl (6-23); Calcium 8.5 mg/dl (8.6-10.3); Carbon Dioxide 19.0 mmol/L (21-32); Chloride 108.0 mmol/L (98-107); Creatinine Clr Calc Pharmacy 31.7 ml/min; Glucose 118.0 mg/dl (70-99(Fasting)); Potassium 4.2 mmol/L (3.5-5.1); Sodium 137.0 mmol/L (136-145)
--- NOTE | 2025-10-24 09:28 | Hospitalist Progress Note ---
Date of Service October 24, 2025 Assessment & Plan (1) UTI (urinary tract infection): (2) Frequent falls: (3) Type 2 diabetes mellitus: Plan 80-year-old male PMHx T2DM, RA on hydroxychloroquine, COPD, CHF, HTN, HLD, and anemia presenting for multiple falls over the past week. His evaluation is without obvious infection, he does have baseline anemia. Creatinine is elevated significantly to 4.86, currently pending his urinalysis and abdominal imaging. Patient with multiple falls, pending official read of the head CT. No gross cardiac abnormalities at present. Admission for COLUMBA and recurrent falls. 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 Prior renal US with cortical atrophy; Not eating well over the past few days; Likely secondary to renal hypoperfusion, also in setting of UTI, cystitis noted CT. No prior pseudomonas. Received 1.5 L NSS in ED. Does have some changes to mentation, likely 2/2 to COLUMBA/UTI. Will continue to manage with IVF + abx, and if mentation does not improve, will repeat head CT or obtain MRI (pt with knee replacement). -Cr 4.86, 4.22, 3.87, 2.80 -UC with Kleb pneumoniae -condom catheter with favorable urine output -CTAP ? cystitis, no other acute findings -Avoid nephrotoxic agents - lisinopril, lasix held at admission -Ceftriaxone IV course complete for Klebsiella pneumoniae with confirmed sensitivity, repeat UC 10/21 with no growth -VBGs with no overt metabolic acidosis and appropriate compensation -repeat UA/UC, procal 0.22, CRP 6.94, blood cultures NGTD -nephrology on consult-->non oliguric COLUMBA, Cr downtrending with supportive care IV hydration -Plasmalyte at 125ml/hr per nephro ##hypokalemia/hypocalcemia/hypophosphatemia #Frequent falls Prior history of falls, history of Alzheimer. Family reports he does not use his walker/cane, sometimes shuffling then falling; no symptoms prior to. - CBC anemia (near baseline) - Fall precautions - Head CT stable age related findings, no acute infarct/bleed/abnormality - PT/OT ordered with rec for STR #T2DM H/o DMT2; at home regimen includes Jardiance, metformin. - Glucose at admission 124; Most recent A1C 07/2025 @ 7.8% - Hold home regimen - SSI with target BSG range 110-140mg/dL, CF 45, carb ratio 15 - BSG ACHS - Adjust regimen as needed #RA- Dx 1980; Plaquenil, prednisone 5mg, Methotrexate weekly (last dose 10/13, every Saturday) -cont daily Prednisone #Anemia- Prior h/o, with vitamin B12 def #COPD -Anoro Ellipta, Combivent, albuterol neb, Ventolin; follows with pulmonology - continue #HF -Echo 08/2025 EF 55-60% -Lasix held #HTN -ACEi held -Metoprolol, isosorbide mono, lisinopril, ranazoline #HLD -Atorvastatin ##Lewy body dementia -Escitalopram, memantine, donepezil, oxcarbazepine - continue -added CK in setting of new prescribing related to donepezil to r/o rhabdo-->>CK WNL #Urge incontinence/BPH -Mirabegron, tamsulosin - continue #GERD -Pantoprazole #RLS -Ropinirole #ENDY -CPAP HS #BPH -Tamsulosin Dispo: Continued med/tele admission, PT eval recommendations for STR, probable d/c 10/25/25 with close nephro f/u VTE Prophylaxis: SCDs CODE STATUS: DNR/DNI Admission and Anticipated Discharge Date Admission Date: October 18, 2025 Review of Systems Review of Systems: All systems reviewed & are unremarkable except as noted in Subjective Physical Exam Physical Exam: GENERAL APPEARANCE: A&O. Sitting comfortably in bed. NAD. SKIN: Normal color without rashes or lesions. Normal turgor. HEENT: Head AT/NC. Buccal mucosa is moist and pink. NECK: No jugular venous distention. No thyroid enlargement. There is no lymphadenopathy. HEART: RRR without m/g/r LUNGS: Normal inspiratory effort. CTA without w/r/r ABDOMEN: No guarding or rigidity. Normoactive BS in all four quadrants. Abdomen soft and NT. MSK: No bony gross/deformities throughout. ROM intact. EXTREMITIES: No edema, No peripheral cyanosis. Neuro: CN 2-12 grossly intact. No focal neuro deficits PSYCHIATRIC: Normal affect. Eye contact is good. Speech is normal rate and content. Responses are appropriate. Results & Data Results & Data Vital Signs (Past 12 Hours) Vital Signs Temp Pulse Pulse Resp BP Pulse Ox O2 Del Method 10/24/25 07:47 36.6 C 70 19 161/82 H 97 Room Air 10/24/25 05:51 66 10/24/25 01:58 36.4 C L 63 18 138/75 97 Room Air 10/23/25 23:43 67 20 98 10/23/25 22:22 36.3 C L 72 18 157/79 H 96 Room Air 10/23/25 21:45 Room Air FiO2 10/24/25 07:47 10/24/25 05:51 10/24/25 01:58 10/23/25 23:43 21 10/23/25 22:22 10/23/25 21:45 PG Care Time/CCT Total # of Minutes Spent Total Time Spent with Patient: Total time spent is greater than 50% in coordination of care (as documented) at patient's floor/unit and/or counseling patient: Coding Diagnoses UTI (urinary tract infection) N39.0 Frequent falls R29.6 Type 2 diabetes mellitus E11.9
--- NOTE | 2025-10-24 14:16 | Hospitalist Progress Note ---
Date of Service October 24, 2025 Assessment & Plan (1) UTI (urinary tract infection): (2) Frequent falls: (3) Type 2 diabetes mellitus: Plan 80-year-old male PMHx T2DM, RA on hydroxychloroquine, COPD, CHF, HTN, HLD, and anemia presenting for multiple falls over the past week. His evaluation is without obvious infection, he does have baseline anemia. Creatinine is elevated significantly to 4.86, currently pending his urinalysis and abdominal imaging. Patient with multiple falls, pending official read of the head CT. No gross cardiac abnormalities at present. Admission for COLUMBA and recurrent falls. #COLUMBA/UTI/CKD H/o CKD, attributed to arterionephrosclerosis NSAID use, follows with nephrology. Prior renal US with cortical atrophy. -Cr 4.86, 4.22, 3.87, 2.80, 1.89, 2.11, 1.99 -UC with Kleb pneumoniae -condom catheter with favorable urine output -CTAP ? cystitis, no other acute findings -Avoid nephrotoxic agents - lisinopril, lasix held at admission -Ceftriaxone IV course complete for Klebsiella pneumoniae with confirmed sensitivity, repeat UC 10/21 with no growth -VBGs with no overt metabolic acidosis and appropriate compensation -repeat UA/UC, procal 0.22, CRP 6.94, blood cultures NGTD -nephrology on consult-->non oliguric COLUMBA, Cr downtrending with supportive care, IV hydration, rec to defer SGLT2i in setting of UTIs -continue to trend Cr ##hypokalemia/hypocalcemia/hypophosphatemia -K 4.2, maintain oral K supplementation -Phos 2.6, Kphos tabs -Ca 8.5, post repletion with Calcium gluconate 1000mg IV X 2 -Mg WNL #Frequent falls Prior history of falls, history of Alzheimer. Family reports he does not use his walker/cane, sometimes shuffling then falling; no symptoms prior to. - CBC anemia (near baseline) - Fall precautions - Head CT stable age related findings, no acute infarct/bleed/abnormality - PT/OT ordered with rec for STR #T2DM H/o DMT2; at home regimen includes Jardiance, metformin. - Glucose at admission 124; Most recent A1C 07/2025 @ 7.8% - Hold home regimen - SSI with target BSG range 110-140mg/dL, CF 45, carb ratio 15 - BSG ACHS - Adjust regimen as needed #RA- Dx 1980; Plaquenil, prednisone 5mg, Methotrexate weekly (last dose 10/13, every Saturday) -cont daily Prednisone #Anemia- Prior h/o, with vitamin B12 def -no active blood loss -H/H 9.5/30.7 at admission; Vitamin B12 BID, ferrous sulfate, folic acid -H/H 9.9/30.8 this am #COPD -Anoro Ellipta, Combivent, albuterol neb, Ventolin; follows with pulmonology - continue #HF -Echo 08/2025 EF 55-60% -Lasix held -euvolemic on exam, BNP WNL #HTN -ACEi held -Metoprolol, isosorbide mono, lisinopril, ranazoline #HLD -Atorvastatin ##Lewy body dementia -Escitalopram, memantine, donepezil, oxcarbazepine - continue -added CK in setting of new prescribing related to donepezil to r/o rhabdo-->>CK WNL #Urge incontinence/BPH -Mirabegron, tamsulosin - continue #GERD -Pantoprazole #RLS -Ropinirole #ENDY -CPAP HS #BPH -Tamsulosin Dispo: Continued med/tele admission, PT eval recommendations for STR, will cont to monitor progress, probable d/c 10/25 to [facility] Prophylaxis: SCDs CODE STATUS: DNR/DNI Admission and Anticipated Discharge Date Admission Date: October 18, 2025 Subjective Kodi is sitting up in bed this am. He is completely oriented and alert. He has no complaints. Feeling much better. More awake and alert. Review of Systems Review of Systems: All systems reviewed & are unremarkable except as noted in Subjective Physical Exam Physical Exam: GENERAL APPEARANCE: A&O. Sitting comfortably in bed. NAD. SKIN: Normal color without rashes or lesions. Normal turgor. HEENT: Head AT/NC. Buccal mucosa is moist and pink. NECK: No jugular venous distention. No thyroid enlargement. There is no lymphadenopathy. HEART: RRR without m/g/r. LUNGS: Normal inspiratory effort. CTA without w/r/r. ABDOMEN: No guarding or rigidity. Normoactive BS in all four quadrants. Abdomen soft and NT. MSK: No bony gross/deformities throughout. ROM intact. EXTREMITIES: No edema, No peripheral cyanosis. Neuro: CN 2-12 grossly intact. No focal neuro deficits PSYCHIATRIC: Normal affect. Eye contact is good. Speech is normal rate and content. Responses are appropriate. Results & Data Results & Data Vital Signs (Past 12 Hours) Vital Signs Temp Pulse Pulse Resp BP Pulse Ox O2 Del Method 10/24/25 12:57 73 10/24/25 11:22 36.6 C 64 18 114/74 93 Room Air 10/24/25 09:30 Room Air 10/24/25 07:47 36.6 C 70 19 161/82 H 97 Room Air 10/24/25 05:51 66 Laboratory Results Labs reviewed: CBC, Renal panel PG Care Time/CCT Total # of Minutes Spent Total Time Spent with Patient: Total time spent is greater than 50% in coordination of care (as documented) at patient's floor/unit and/or counseling patient: Coding Level of Care Code 63828 SUB INP/OBS CARE 2/35MIN Diagnoses UTI (urinary tract infection) N39.0 Frequent falls R29.6 Type 2 diabetes mellitus E11.9
[2025-10-25] MEDS: POLYETHYLENE (MIRALAX) 17 GM PACK PO PRN (08:49)
--- NOTE | 2025-10-25 14:50 | Hospitalist Progress Note ---
Date of Service October 25, 2025 Assessment & Plan (1) UTI (urinary tract infection): (2) Frequent falls: (3) Type 2 diabetes mellitus: Plan 80-year-old male PMHx T2DM, RA on hydroxychloroquine, COPD, CHF, HTN, HLD, and anemia presenting for multiple falls over the past week. His evaluation is without obvious infection, he does have baseline anemia. Creatinine elevated significantly to 4.86 Admission for COLUMBA and recurrent falls. 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 Prior renal US with cortical atrophy; Not eating well over the past few days; Likely secondary to renal hypoperfusion, also in setting of UTI, cystitis noted CT. treated with IV ceftriaxone this admission for Klebsiella UTI, completed antibiotics while in hospital nephrology consulted for the COLUMBA, Lasix and lisinopril were held gentle hydration with IV fluids. This is improved significantly creatinine is now closer to baseline. - Resume lisinopril a.m. of 10/26 since creatinine has plateaued - check BMP later this week then approximately weekly until resolved, follow- up with nephrology clinic - acute metabolic encephalopathy has resolved and he is at his baseline co gnitive status #hypokalemia/hypocalcemia/hypophosphatemia - electrolytes were replaced, continue usual home oral potassium supplement #Frequent falls Prior history of falls, dementia. Family reports he does not use his walker/cane, sometimes shuffling then falling; no symptoms prior to. - Fall precautions - Head CT stable age related findings, no acute infarct/bleed/abnormality - PT/OT ordered with rec for STR - try to stop loratadine which can cause anticholinergic side effects #T2DM H/o DMT2; at home regimen includes Jardiance, metformin. SGLT2 stopped because of UTIs resume metformin on discharge and continue Premeal/correctional insulin #RA- Dx 1980; Plaquenil, prednisone 5mg, Methotrexate weekly (last dose 10/13, every Saturday). This has remained stable no evidence of RA flare -cont daily Prednisone #Anemia- Prior h/o, with vitamin B12 def -no active blood loss continue Vitamin B12 BID, ferrous sulfate, folic acid #COPD -Anoro Ellipta, Combivent, albuterol neb, Ventolin; follows with pulmonology - continue - stable and has not been in exacerbation this admission #HF -Echo 08/2025 EF 55-60% -Lasix held - monitor weight 3 times a week, monitor for development of edema or dyspnea restart Lasix as indicated #HTN -ACEi resumed 10/26 -Metoprolol, isosorbide mono for continued #HLD -Atorvastatin #Dementia - neurology notes Alzheimer's disease, other chart notes mention Lewy body dementia -Escitalopram, memantine, donepezil, oxcarbazepine - continue - also on ropinirole for restless legs #Urge incontinence/BPH -Mirabegron, tamsulosin - continue #GERD -Pantoprazole #RLS -Ropinirole #ENDY -CPAP HS plan for discharge to [facility] discussed with grounds caretaker, referral has been made to [facility] Admission and Anticipated Discharge Date Admission Date: October 18, 2025 Subjective Elmers sitting up in the chair he seems to know he is in the hospital but he is confused and forgetful. He says he does not have any pain except for intermittent bilateral neck pain in the trapezius area. He does not have the pain right now and it is nonradiating. No shortness of breath or chest pain no nausea vomiting or abdominal pain Physical Exam Physical Exam: PHYSICAL EXAMINATION Last 24h vital signs reviewed, see documentation in flowsheet General: comfortable appearing, no distress. He has some paraspinous/trapezius spasm and tightness HEENT: Normocephalic, atraumatic, pupils round and equal, sclerae anicteric, no conjunctival injection, moist mucus membranes Lungs: Normal respiratory effort. Clear to auscultation bilaterally. No RRW Heart: Regular rate and rhythm, no murmurs. No JVD Abdomen: Soft, nontender, nondistended. Bowel sounds present. Extremities: Warm, dry, well-perfused. No extremity edema. Neuro: Alert and oriented x person and hospital but not to situation is confused and forgetful, face symmetric, moves 4 extremities well Psych: Normal affect and behavior calm no agitation, cooperative Results & Data Results & Data Vital Signs (Past 12 Hours) Vital Signs Temp Pulse Pulse Resp BP Pulse Ox O2 Del Method 10/25/25 11:57 36.3 C L 65 18 117/68 98 Room Air 10/25/25 10:09 Room Air 10/25/25 08:39 36.6 C 65 19 111/64 95 Room Air 10/25/25 07:09 66 Laboratory Results no labs today PG Care Time/CCT Total # of Minutes Spent Total Time Spent with Patient: Total time spent is greater than 50% in coordination of care (as documented) at patient's floor/unit and/or counseling patient: Coding Level of Care Code 50372 SUB INP/OBS CARE 2/35MIN Diagnoses UTI (urinary tract infection) N39.0 Frequent falls R29.6 Type 2 diabetes mellitus E11.9
[2025-10-26 06:37] LABS: Anion Gap 10.0 (3-11); Blood Urea Nitrogen 39.0 mg/dl (6-23); Calcium 8.1 mg/dl (8.6-10.3); Carbon Dioxide 19.0 mmol/L (21-32); Chloride 108.0 mmol/L (98-107); Creatinine Clr Calc Pharmacy 23.2 ml/min; Glucose 131.0 mg/dl (70-99(Fasting)); Magnesium 2.0 mg/dl (1.7-2.4); Potassium 5.0 mmol/L (3.5-5.1); Sodium 137.0 mmol/L (136-145)
[2025-10-26] MEDS ORDERED: POTASSIUM CHLORIDE CRTAB 20 MEQ TABCR PO SCH (09:00)
[2025-10-26] MEDS: SODIUM CHLORIDE 0.9% 500 ML IV ONE (09:24)
[2025-10-26 12:15] VITALS: BP 100/64; RESP 17; TEMP 97.9; O2SAT 93
--- NOTE | 2025-10-26 14:12 | Discharge Summary ---
Discharge Summary Date of Service October 26, 2025 Principal Dx & Hospital Course #1 = Principal Diagnosis (1) UTI (urinary tract infection): (2) Frequent falls: (3) Type 2 diabetes mellitus: Plan 80-year-old male PMHx T2DM, RA on hydroxychloroquine, COPD, CHF, HTN, HLD, and anemia presenting for multiple falls over the past week. His evaluation is without obvious infection, he does have baseline anemia. Creatinine elevated significantly to 4.86 Admission for COLUMBA and recurrent falls. 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 Prior renal US with cortical atrophy; Not eating well over the past few days; Likely secondary to renal hypoperfusion, also in setting of UTI, cystitis noted CT. treated with IV ceftriaxone this admission for Klebsiella UTI, completed antibiotics while in hospital nephrology consulted for the COLUMBA, Lasix and lisinopril were held gentle hydration with IV fluids. This improved significantly creatinine plateaued around, closer to baseline. creatinine increased again on 10/26 to 2.9. administer 500 mL crystalloid. Stopped ranolazine which can cause COLUMBA. would not resume ranolazine or SGLT2. Please check BMP on 10/28 and next week then weekly as long as necessary. Restart lisinopril next week if creatinine remains stable or improved. Please follow-up with Dr. Garcia or with a fork assembler closer to where he lives acute metabolic encephalopathy has resolved and he is at his baseline cognitive status, he has significant dementia #hypokalemia/hypocalcemia/hypophosphatemia - electrolytes were replaced, continue usual home oral potassium supplement ( which is about 2.5 mEq daily) #Frequent falls Prior history of falls, dementia. Family reports he does not use his walker/cane, sometimes shuffling then falling; no symptoms prior to. - Fall precautions - Head CT stable age related findings, no acute infarct/bleed/abnormality - PT/OT ordered with rec for STR - try to stop loratadine which can cause anticholinergic side effects #T2DM H/o DMT2; at home regimen includes Jardiance, metformin. SGLT2 stopped because of UTIs and COLUMBA resume metformin once renal function improved and continue Premeal/correctional insulin #RA- Dx 1980; Plaquenil, prednisone 5mg, Methotrexate weekly (last dose 10/13, every Saturday). This has remained stable no evidence of RA flare -cont daily Prednisone #Anemia- Prior h/o, with vitamin B12 def -no active blood loss continue Vitamin B12 BID, ferrous sulfate, folic acid #COPD -Anoro Ellipta, Combivent, albuterol neb, Ventolin; follows with pulmonology - continue - stable and has not been in exacerbation this admission #HF -Echo 08/2025 EF 55-60% -Lasix held - monitor weight 3 times a week, monitor for development of edema or dyspnea restart Lasix as indicated #HTN -ACEi resumed 10/26 -Metoprolol, isosorbide mono for continued #HLD -Atorvastatin #Dementia - neurology notes Alzheimer's disease, other chart notes mention Lewy body dementia -Escitalopram, memantine, donepezil, oxcarbazepine - continue - also on ropinirole for restless legs - watch for side effects of this and consider tapering the dosing #Urge incontinence/BPH -Mirabegron, tamsulosin - continue #GERD -Pantoprazole #RLS -Ropinirole #ENDY -CPAP HS discharging to [facility] for rehab 10/24/25 06:02 10/26/25 05:48 Notes For Next Care Provider COLUMBA on CKD thought prerenal Falls Please check BMP 10/28 and next week Medication Changes From Visit Stopped SGLT2 and ranolazine Held lisinopril, metformin Admission HPI Per Admitting Provider 80-year-old male PMHx T2DM, RA on hydroxychloroquine, COPD, CHF, HTN, HLD, and anemia presenting for multiple falls over the past week. Pt's daughter + help to provide a history. Report that the patient does have frequent falls, but that over the past week he has had ~ 6 falls. Sometimes he will fall straight forward or straight backwards, other times he seems to "crumble" to the group. He is to be using a walker or cane and does not often utilize this. Family reports no head injury. He is not on AC. His family noted that on the day of arrival the patient was making less sense, saying his words were not clear. He has reportedly been having some hallucinations as well, seeing people or things that others do not. His daughter states that earlier the day of arrival, after the patient had fallen to the floor and she was talking with him, he was mentioning seeing ants and a glass of water that was suddenly moved, but the daughter said was never there in the first place. He has been "less coherent" on the day of arrival. Pt is sleeping during initial interview, but easy to wake. When awoken, he states "things hurt" but does not specify. He says no to chest pain or SOB. His family has not noticed any abnormalities to his urinary habits, no fevers/chills, and no other infectious symptoms (URI, cough). ED evaluation reveals CBC without leukocytosis or leukopenia, H&H 9.5/30.7; CMP AG 14, CO2 14, chloride 111 BUN 40, creatinine 4.86; calcium 8.4; troponin 9.4; TSH 1.014; CXR cardiomegaly, bilateral pleural effusions; hip and pelvis XR (L hip) no displaced acute osseous process, mild OA of L hip joint; lumbar spine XR no displaced osseous process, multilevel degenerative changes; CTAP pending official read; head CT pending official read; EKG NSR, low voltage QRS at 77 bpm.; Provided with 1.5 L NSS in ED. Please see Dr. Lewis's attestation for adjustments/additions to treatment plan. Discharge Exam General Appearance: Normal. Vital signs: Reviewed past 24h vital signs in EMR, unremarkable. HEENT: Within normal limits. Respiratory: Lungs clear bilaterally. No rhonchi, rales, or wheezes. Cardiovascular: Regular rate and rhythm, no murmur. Gastrointestinal: Abdomen soft, nontender, nondistended. Normal bowel sounds. Extremities: Lower extremities warm, well perfused, no edema. Skin: Skin warm, dry. No rashes. Superficial ankle abrasions healing as expected. Neurological: Awake, alert, oriented to hospital, but confused as to situation and forgetful. Psychiatric: Normal. Discharge Plan Discharge Items Patient Disposition: Transfer Care Home Fac Reason For Visit: COLUMBA, FALLS Discharge Diagnosis: COLUMBA, UTI, falls Condition on Discharge: Good Activity: Per Instructions section Weightbearing: Full weightbearing Non-emergency contact: Primary Care Provider Call non-emergency contact if: you have any medication questions and your symptoms worsen Follow-up/Referrals: Oscar Sullivan, [Primary Care Provider] - Diet: Carb Consistent or DM2 and Low Sodium (2gm) Addtl Attending Provider Instructions: acute kidney injury on CKD - improving. Prerenal COLUMBA from dehydration in the setting of UTI and empagliflozin + lisinopril. -please check BMP on 10/28 and next week -resume lisinopril if Cr stable in 1 week, then weekly until COLUMBA resolved completed treatment for Klebsiella UTI while in the hospital for diabetes please check blood glucose before every meal and nightly SGLT2 stopped because of UTIs and COLUMBA, metformin held because of COLUMBA and metabolic acidosis continue diabetic diet, Premeal short acting correctional insulin as needed continue nocturnal CPAP PT and OT evaluate and treat Please schedule follow-up with [facility] [place]rology Dr. Dr. Garcia, or with local fork assembler Pending Studies at Discharge: No Stand-Alone Forms: My [facility] Skilled Items Patient informed of condition?: Yes DNR: Yes Discharge Level of Care: Skilled Communicable Disease: No Discharge Prognosis: Improving Lines: None Urinary Catheter: No Medications and DC Order Prescriptions: New polyethylene glycol 3350 [Miralax] 17 gram Powder In Packet 17 g PO DAILY PRNQty: 0 0RF Gemtesa 75 mg Tablet 75 mg PO QAM Qty: 0 0RF insulin aspart U-100 [Novolog U-100 Insulin aspart] 100 unit/mL Solution See Rx Instructions .ROUTE .COMPLEX Qty: 10 0RF Rx Instructions: --Goal BSG Range: Low 120 mg/dL, High 180 mg/dL --Correction Factor: 45 mg/dL/unit --Carbohydrate ratio = 15 g/unit --BSGs ACHS if eating, q6h if npo Continued escitalopram oxalate [Lexapro] 20 mg tablet 20 mg PO QAM Qty: 90 3RF metoprolol tartrate 100 mg tablet 100 mg PO Q12H Qty: 180 3RF mirabegron [Myrbetriq] 25 mg tablet extended release 24 hr 25 mg PO QAM Qty: 90 1RF pantoprazole [Protonix] 40 mg tablet,delayed release (DR/EC) 40 mg PO BID Qty: 180 3RF ropinirole 1 mg tablet 1 mg PO BID Qty: 180 1RF isosorbide mononitrate 60 mg tablet extended release 24 hr 30 mg PO QAM Qty: 90 3RF memantine 10 mg tablet 10 mg PO BID Qty: 180 0RF magnesium oxide 400 mg (241.3 mg magnesium) tablet 400 mg PO BID multivitamin [Multiple Vitamins] tablet 1 tab PO QAM (DME) CPAP Supplies Misc See Rx Instructions .MEDSUPPLY Qty: 1 0RF Rx Instructions: Please provide with new supplies. Headgear, mask, tubing and filters as appropriate. albuterol sulfate 90 mcg/actuation HFA aerosol inhaler 2 inh inhalation Q6H PRN (Reason: shortness of breath or wheezing) Qty: 18 5RF diclofenac sodium 1 % gel 2 g topical QID PRN (Reason: pain, moderate) Qty: 100 2RF nitroglycerin 0.4 mg tablet, sublingual 0.4 mg sublingual Q5M PRN (Reason: chest pain) Qty: 30 0RF Rx Instructions: until response; do not exceed 3 doses per episode donepezil 5 mg tablet 5 mg PO HS Qty: 30 5RF oxcarbazepine 300 mg tablet 450 mg PO QAM Qty: 135 3RF (DME) FreeStyle Hzane 3 [place] Misc See Rx Instructions .Route Qty: 1 0RF Rx Instructions: As directed (DME) FreeStyle Zhane 3 Sensor Device See Rx Instructions .Route Qty: 1 5RF Rx Instructions: As directed atorvastatin 40 mg tablet 40 mg PO QPM Qty: 90 3RF cyanocobalamin (vitamin B-12) 1,000 mcg Tablet 1,000 mcg PO BID cholecalciferol (vitamin D3) [Vitamin D3] 25 mcg (1,000 unit) Capsule 25 mcg PO BID potassium gluconate 595 mg (99 mg) Tablet 595 mg PO QAM ascorbic acid (vitamin C) 100 mg tablet 100 mg PO QAM Probiotic 3 billion cell capsule 3,000 mmu cells PO QAM prednisone 5 mg tablet 5 mg PO QAM methotrexate sodium 2.5 mg tablet 15 mg PO WK Rx Instructions: take 6 tablets weekly- [place] folic acid 1 mg tablet 1 mg PO QAM aspirin [Adult Aspirin Regimen] 81 mg tablet,delayed release (DR/EC) 81 mg PO BID Qty: 84 0RF montelukast 10 mg tablet 10 mg PO HS furosemide 20 mg tablet 20 mg PO UD PRN (Reason: weight gain 2-3 pounds in 1 day.) Rx Instructions: TAKE 1 TABLET BY MOUTH EVERY DAY IN THE MORNING PRN; umeclidinium-vilanterol [Anoro Ellipta] 62.5-25 mcg/actuation blister with device 1 inh inhalation QAM amoxicillin 500 mg tablet 2,000 mg PO DIRECTED PRN (Reason: 1 HR PRIOR TO DENTAL PROCEDURES) Rx Instructions: take 30 - 60 minutes prior to dental procedure. Changed tamsulosin 0.4 mg capsule 0.4 mg PO HS Qty: 90 3RF ferrous sulfate 324 mg (65 mg iron) tablet,delayed release (DR/EC) 324 mg PO Q48H Qty: 30 2RF Held metformin 1,000 mg tablet 1,000 mg PO BID Qty: 180 3RF Hold Instructions: until metabolic acidosis from COLUMBA resolved lisinopril 5 mg tablet 5 mg PO QAM Qty: 90 3RF Hold Instructions: resume if tolerated once COLUMBA resolved Discontinued ranolazine 500 mg tablet extended release 12 hr 500 mg PO BID Qty: 180 3RF empagliflozin 25 mg tablet 25 mg PO QAM Qty: 30 5RF loratadine [Claritin] 10 mg tablet 10 mg PO QAM Qty: 90 Admission Data Admit Date/Time: 10/18/25 21:46 Attending Provider: Denice Alves Admit Provider: Cornelio Lewis Primary Care Provider: Oscar Sullivan Other Providers: Cornelio Lewis; Amrik Herrmann [facility]; [facility]; Butch Garcia Hospital Stay Data Consultations 10/18/25 19:46 ED Decision to Admit Stat 10/19/25 14:08 Consult Nephrology Routine Diagnostic Imagining Performed 10/18/25 19:44 CT abd pelvis wo con Stat 10/18/25 19:58 CT head/brain wo con Stat Pending Results Patient Have Any Pending Studies at Discharge: No Discharge Instructions Given to Patient (Per Discharging Provider) acute kidney injury on CKD - improving. Prerenal COLUMBA from dehydration in the setting of UTI and empagliflozin + lisinopril. -please check BMP on 10/28 and next week -resume lisinopril if Cr stable in 1 week, then weekly until COLUMBA resolved completed treatment for Klebsiella UTI while in the hospital for diabetes please check blood glucose before every meal and nightly SGLT2 stopped because of UTIs and COLUMBA, metformin held because of COLUMBA and metabolic acidosis continue diabetic diet, Premeal short acting correctional insulin as needed continue nocturnal CPAP PT and OT evaluate and treat Please schedule follow-up with [facility] nephrology Dr. Dr. Garcia, or with local fork assembler Total Time Total Time Spent Total Time Spent (In Minutes): I personally spent: 50 minutes today on clinical care activities including: reviewing chart notes and vital signs reviewing labs discussion with daycare provider, bedside RN examining and counseling the patient writing orders writing prescriptions, discharge instructions documentation Coding Level of Care Code 01501 INP/OBS DISCH >30 MIN Diagnoses UTI (urinary tract infection) N39.0 Frequent falls R29.6 Type 2 diabetes mellitus E11.9
[2025-10-26 16:56] VITALS: PULSE 69
== END 2025-10-26 16:22 | DRG 682 ==
LOC: ED 18:14 → 2N 21:46 → SUATTDRO 21:46 → 2N 23:05